=== PATIENT | male | born 1965 | race African-American/Black ===

== ENCOUNTER 2016-08-29 18:42 | Inpatient (IN) | payer MEDICARE, OTHER ==
[~2016-08-29] VITALS: Ht 188 cm; Wt 99.8 kg
[~2016-08-29 18:42] MED LIST: AMBIEN5 MG ORAL; ASPIR 8181 MG ORAL; ATIVAN0.5 MG ORAL; BACTRIM DS TAB1 EAC1 ORAL; BENADRYL25 MG ORAL; CATAPRES0.1 MG ORAL; CATAPRES0.2 MG ORAL; CHEMO; CLINDAMYCIN HC300 MG ORAL; CYCLOBENZAPRINE10 MG ORAL; DILAUDID2 MG ORAL; DILAUDID4 MG ORAL; FIORICET 50-301 EACH PO; FLOMAX0.4 MG ORAL; HYDROCHLOROTH12.5 M2 ORAL; HYDROCHLOROTHIA50 MG ORAL; HYDROCODON-ACE1 EA13 ORAL; HYDROCODON-ACE1 EA15 ORAL; HYDROCODON-ACE1 EA16 ORAL; IBUPROFEN600 MG ORAL; KEFLEX500 MG ORAL; LEXAPRO10 MG ORAL; LISINOPRIL10 MG ORAL; LISINOPRIL40 MG ORAL; LORAZEPAM0.5 MG ORAL; METOPROLOL SUCC25 MG ORAL; MIRTAZAPINE15 M1 ORAL; NORCO 10/3251 EA ORAL; NORCO 5-325 TA1 EACH ORAL; NORCO 5-325 TA1 EACH PO; NORVASC2.5 MG ORAL; NORVASC5 MG ORAL; NORVIR100 MG ORAL; PAXIL10 MG ORAL; PERCOCET 5-3251 EACH ORAL; PROSCAR5 MG ORAL; RANITIDINE HCL150 MG ORAL; REGLAN10 MG ORAL; TYLENOL325 MG ORAL; VALIUM5 MG ORAL; ZANTAC150 MG ORAL; ZESTRIL40 MG ORAL
[2016-08-29 19:05] VITALS: BP 161/106
[2016-08-29 19:10] VITALS: BP 152/105
[2016-08-29 19:20] VITALS: BP 156/103
[2016-08-29 19:43] LABS: BASOPHILS % (AUTO) 1.4 % (0.0-2.0); EOSINOPHILS % (AUTO) 2.7 % (0.0-3.0); LYMPHOCYTES % (AUTO) 30.5 % (20.0-45.0); MEAN CORPUSCULAR HEMOGLOBIN 32.7 PG (27.0-31.0); MEAN CORPUSCULAR HGB CONC 35.5 G/DL (32.0-36.0); MEAN CORPUSCULAR VOLUME 92 FL (80-99); MEAN PLATELET VOLUME 7.5 FL (6.5-10.1); NEUTROPHILS % (AUTO) 58.4 % (45.0-75.0); PLATELET COUNT 155 K/UL (150-450); RED CELL DISTRIBUTION WIDTH 12.5 % (11.6-14.8); WHITE BLOOD COUNT 6.2 K/UL (4.8-10.8)
[2016-08-29] MEDS: Nitroglycerin Subl 0.4mg tab (Bottle Of 25) SL PRN ×3 (19:44→20:24)
[2016-08-29 19:58] LABS: ALANINE AMINOTRANSFERASE 25 U/L (3-41); ALBUMIN/GLOBULIN RATIO 2.2 (1.0-2.7); ANION GAP 15 (5-15); ASPARTATE AMINO TRANSFERASE 21 U/L (5-40); CALCIUM 9.2 mg/dL (8.6-10.2); CARBON DIOXIDE 26 mEQ/L (20-30); CHLORIDE 100 mEQ/L (98-107); CREATININE 1.1 mg/dL (0.7-1.2); GLOMERULAR FILTRATION RATE > 60 mL/min (>60); HEMOLYSIS 15; POTASSIUM 4.1 mEQ/L (3.4-4.9); SODIUM 141 mEQ/L (135-145); TOTAL PROTEIN 5.8 g/dL (6.6-8.7); TROPONIN I < 0.30 ng/mL (<=0.30)
[2016-08-29 20:08] LABS: CKMB 3.9 ng/mL (< 6.7)
[2016-08-29] MEDS ORDERED: Morphine Sulfate 4mg/ml Inj IVP ONE (20:15)
[2016-08-29] MEDS ORDERED: Metoclopramide 10mg/2ml Inj IVP ONE (20:15)
[2016-08-29] MEDS ORDERED: DiphenhydrAMINE 50mg/ml Inj ONE (20:29)
[2016-08-29] MEDS ORDERED: DiphenhydrAMINE 50mg/ml Inj IVP ONE (20:45)
[2016-08-29 21:00] VITALS: BP 146/103
[2016-08-29] MEDS ORDERED: HYDROmorphone 1 MG, DiphenhydrAMINE 25 MG in NS 55 ML IVPB ONE (21:30)
--- NOTE | 2016-08-29 21:31 | Emergency Room Report ---
History of Present Illness General Chief Complaint: Headache Source: Patient Present Illness HPI 51-year-old male presents to ED for evaluation. Patient states the last 2 days he had chest pain and headache. Chest pain as squeezing, left-sided, 8/10. Denies shortness of breath. Patient also complaining of headache. Notes history of migraines. BP is elevated. Headache as throbbing, 10 out of 10. Nonradiating. Denies photophobia, blurry vision. Denies nausea or vomiting. Denies neck stiffness. No other aggravating or relieving factors. Denies any other associated symptom Allergies: Coded Allergies: KETOROLAC (Verified Allergy, Severe, Anaphylaxis, 06/19/15) HYDROCODONE (Verified Allergy, Intermediate, Itching, 06/19/15) Patient History Past Medical History: HTN, CAD, other - MS Past Surgical History: none Pertinent Family History: none Social History: Denies: alcohol use, drug use, smoking Immunizations: UTD Reviewed Nursing Documentation: PMH: Agreed, PSxH: Agreed Nursing Documentation-PMH Hx Cardiac Problems: Yes - CAD, multiple herniated discs, multiple sclerosis Hx Hypertension: Yes Hx Asthma: No Hx COPD: No Hx Diabetes: No Hx Cancer: No Hx Gastrointestinal Problems: No Hx Dialysis: No Hx Neurological Problems: Yes - MS Hx Cerebrovascular Accident: Yes - TIA (2013) Hx Transient Ischemic Attacks: No Hx Dementia: No Hx Alzheimer's Disease: No Hx Parkinson's Disease: No Hx Meningitis: No Hx Encephalitis: No Hx Seizures: No Hx Epilepsy: No Hx Multiple Sclerosis: Yes Hx Cerebral Palsy: No Hx Amyotrophic Lat Sclerosis: No Hx Guillian-[place] Syndrome: No Hx Paralysis: No Hx Peripheral Neuropathy: No Hx Spinal Cord Injury: No Hx Head Trauma: No Hx Traumatic Brain Injury: No Hx Memory Loss: No Hx Concentration Difficulty: No Hx Speech Problem: No Hx Tremors: No Hx Vertigo: No Hx Dizziness: Yes - SLIGHT Hx Syncope: Yes Hx Headaches: Yes - SOMETIMES Hx Aphasia: No Hx Dysphasia: No Hx Numbness: Yes - RIGHT HAND Hx Weakness: Yes - ALL OF THE BODY Hx Fatigue: Yes - SLIGHT Hx Neurologic Surgery: No Hx Brain Shunt: No Review of Systems All Other Systems: negative except mentioned in HPI Physical Exam Vital Signs Date Time Temp Pulse Resp B/P Pulse Ox O2 Delivery O2 Flow Rate FiO2 08/29/16 18:55 98.8 85 16 167/111 100 Room Air Sp02 EP Interpretation: reviewed, normal General Appearance: no apparent distress, alert, GCS 15, non-toxic Head: normocephalic, atraumatic Eyes: bilateral eye PERRL, bilateral eye normal inspection ENT: hearing grossly normal, normal pharynx, no angioedema, normal voice Neck: full range of motion, supple/symm/no masses Respiratory: chest non-tender, lungs clear, normal breath sounds, speaking full sentences Cardiovascular #1: regular rate, rhythm, no edema Cardiovascular #2: 2+ carotid (R), 2+ carotid (L), 2+ radial (R), 2+ radial (L) , 2+ dorsalis pedis (R), 2+ dorsalis pedis (L) Gastrointestinal: normal bowel sounds, non tender, soft, non-distended, no guarding, no rebound Rectal: deferred Genitourinary: normal inspection, no CVA tenderness Musculoskeletal: back normal, gait/station normal, normal range of motion, non- tender Neurologic: alert, oriented x3, responsive, motor strength/tone normal, sensory intact, speech normal Psychiatric: judgement/insight normal, memory normal, mood/affect normal, no suicidal/homicidal ideation Reflexes: 3+ bicep (R), 3+ bicep (L), 3+ tricep (R), 3+ tricep (L), 3+ knee (R) , 3+ knee (L) Skin: normal color, no rash, warm/dry, well hydrated Lymphatic: no adenopathy Medical Decision Making Diagnostic Impression: Primary Impression: ACS (acute coronary syndrome) Additional Impressions: Opiate dependence Qualified Codes: F11.29 - Opioid dependence with unspecified opioid-induced disorder Intractable headache Qualified Codes: R51 - Headache ER Course Hospital Course 51-year-old male presents ED complaining of left-sided chest pain, headache. BP is high Differential diagnoses include: VT/unstable angina, contusion, muscle strain, PTX, rib fracture, CVA. Clinical course Patient placed on stretcher. on residential monitor. After initial history and physical I ordered labs, EKG, chest x-ray, NTG, CT Head labs reviewed- no leukocytosis, hemoglobin/hematocrit stable, electrolytes okay , troponins negative,U. tox positive for opiates EKG - NSR, no acute changes Chest x-ray- no acute process CT head ok BP improved Patient required multiple rounds of pain medication for his headache. Patient does have documented history of opiate dependence given asa. Case discussed with Dr. Alvarez and he agreed to accept the patient to his service for further care and support I. I feel this is a highly complex case requiring extensive working including EKG/Rhythm strip, Xray/CT/US, Blood/urine lab work, repeat exams while in ED, and administration of strong opiates/narcotics for pain control, admission to hospital or close patient follow up. Diagnosis - ACS, opiate dependence, intractable headache admitted to telemetry in serious condition Labs Test 08/29/16 19:35 White Blood Count 6.2 K/UL (4.8-10.8) Red Blood Count 4.80 M/UL (4.70-6.10) Hemoglobin 15.7 G/DL (14.2-18.0) Hematocrit 44.3 % (42.0-52.0) Mean Corpuscular Volume 92 FL (80-99) Mean Corpuscular Hemoglobin 32.7 PG (27.0-31.0) Mean Corpuscular Hemoglobin Concent 35.5 G/DL (32.0-36.0) Red Cell Distribution Width 12.5 % (11.6-14.8) Platelet Count 155 K/UL (150-450) Mean Platelet Volume 7.5 FL (6.5-10.1) Neutrophils (%) (Auto) 58.4 % (45.0-75.0) Lymphocytes (%) (Auto) 30.5 % (20.0-45.0) Monocytes (%) (Auto) 7.0 % (1.0-10.0) Eosinophils (%) (Auto) 2.7 % (0.0-3.0) Basophils (%) (Auto) 1.4 % (0.0-2.0) Sodium Level 141 mEQ/L (135-145) Potassium Level 4.1 mEQ/L (3.4-4.9) Chloride Level 100 mEQ/L (98-107) Carbon Dioxide Level 26 mEQ/L (20-30) Anion Gap 15 (5-15) Blood Urea Nitrogen 18 mg/dL (7-23) Creatinine 1.1 mg/dL (0.7-1.2) Estimat Glomerular Filtration Rate > 60 mL/min (>60) Glucose Level 134 mg/dL (74-106) Calcium Level 9.2 mg/dL (8.6-10.2) Total Bilirubin < 0.2 mg/dL (0.0-1.2) Aspartate Amino Transf (AST/SGOT) 21 U/L (5-40) Alanine Aminotransferase (ALT/SGPT) 25 U/L (3-41) Alkaline Phosphatase 104 U/L (40-129) Total Creatine Kinase 144 U/L (38-174) Creatine Kinase MB 3.9 ng/mL (< 6.7) Creatine Kinase MB Relative Index 2.7 Troponin I < 0.30 ng/mL (<=0.30) Total Protein 5.8 g/dL (6.6-8.7) Albumin 4.0 g/dL (3.5-5.2) Globulin 1.8 g/dL Albumin/Globulin Ratio 2.2 (1.0-2.7) Urine Opiates Screen Positive (NEGATIVE) Urine Barbiturates Screen Negative (NEGATIVE) Phencyclidine (PCP) Screen Negative (NEGATIVE) Urine Amphetamines Screen Negative (NEGATIVE) Urine Benzodiazepines Screen Negative (NEGATIVE) Urine Cocaine Screen Negative (NEGATIVE) Urine Marijuana (THC) Screen Negative (NEGATIVE) EKG Diagnostic Results Rate: normal Rhythm: NSR ST Segments: no acute changes ASA given to the pt in ED: Yes Rhythm Strip Diag. Results EP Interpretation: yes Rhythm: NSR, no PVC's, no ectopy Chest X-Ray Diagnostic Results EP Interpretation: Yes Findings: no consolidation, no effusion, no pneumothorax, no acute cardiopulmonary disease Number of Views: 1 CT/MRI/US Diagnostic Results CT/MRI/US Diagnostic Results : Imaging Test Ordered: CT Head Impression no acute process Last Vital Signs Date Time Temp Pulse Resp B/P Pulse Ox O2 Delivery O2 Flow Rate FiO2 08/29/16 20:24 156/103 08/29/16 19:05 98.6 87 17 99 Room Air Status: improved Disposition: ADMITTED INPATIENT Condition: Serious Referrals: QUINTEN ALVAREZ (PCP) RUFUS CHASE M.D. Aug 29, 2016 21:31
[2016-08-29] MEDS ORDERED: HYDROmorphone 1mg/ml Carpuject ONE (21:33)
[2016-08-29 22:55] VITALS: BP 147/99
[2016-08-29] MEDS: LORazepam 1mg tab ORAL PRN (23:36)
[2016-08-29] MEDS: HYDROmorphone 1mg/ml Carpuject IVP PRN (23:39)
[2016-08-30] VITALS (7 sets, daily range): BP systolic 152–200; BP diastolic 97–144
[2016-08-30] MEDS: HYDROmorphone 1mg/ml Carpuject IVP PRN ×6 (03:49→23:58)
[2016-08-30] MEDS: LORazepam 1mg tab ORAL PRN (06:42)
[2016-08-30 07:34] LABS: BASOPHILS % (AUTO) 0.7 % (0.0-2.0); MEAN CORPUSCULAR HEMOGLOBIN 30.4 PG (27.0-31.0); MEAN CORPUSCULAR HGB CONC 32.5 G/DL (32.0-36.0); MEAN CORPUSCULAR VOLUME 94 FL (80-99); MEAN PLATELET VOLUME 8.2 FL (6.5-10.1); MONOCYTES % (AUTO) 8.9 % (1.0-10.0); NEUTROPHILS % (AUTO) 55.4 % (45.0-75.0); PLATELET COUNT 163 K/UL (150-450); RED BLOOD COUNT 4.83 M/UL (4.70-6.10); RED CELL DISTRIBUTION WIDTH 13.1 % (11.6-14.8); WHITE BLOOD COUNT 5.9 K/UL (4.8-10.8)
[2016-08-30 07:45] LABS: ANION GAP 16 (5-15); CALCIUM 8.8 mg/dL (8.6-10.2); CARBON DIOXIDE 25 mEQ/L (20-30); CHLORIDE 100 mEQ/L (98-107); CHOLESTEROL 202 mg/dL (< 200); CHOLESTEROL/HDL RATIO 4.2 (3.3-4.4); GLOMERULAR FILTRATION RATE > 60 mL/min (>60); HEMOLYSIS 5; LDL CHOLESTEROL (CALC.) 106 mg/dL (60-99); POTASSIUM 3.7 mEQ/L (3.4-4.9); SODIUM 141 mEQ/L (135-145)
--- NOTE | 2016-08-30 09:04 | Diagnostic Imaging Report ---
Indication: Headache Technique: Contiguous 5 mm thick transaxial imaging of the head obtained in a Siemens Sensation [address] scanner. Soft tissue and bone windows generated. Total Dose length Product (DLP): [address] Dose Index Volume (CTDIvol): 70.38 mGy Comparison: 06/19/15 Findings: Mild, nonspecific, white matter hypoattenuation is noted throughout the brain consistent with chronic small vessel disease. There is no midline shift, edema, acute hemorrhage, mass effect, or abnormal extra-axial fluid collections. Bones are unremarkable. There is swelling over the left posterior scalp, presumably contusion. Impression: No acute intracranial bleed, mass effect or edema. Nonspecific white matter hypoattenuation probably due to chronic small vessel disease. Scalp swelling left posterior region presumably contusion injury The CT scanner at [facility] is accredited by the [employer] and the scans are performed using protocols designed to limit radiation exposure to as low as reasonably achievable to attain images of sufficient resolution adequate for diagnostic evaluation.
--- NOTE | 2016-08-30 10:29 | Diagnostic Imaging Report ---
Indication: Chest Pain Comparison: 08/24/14 A single view chest radiograph was obtained. Findings: Cardiomediastinal appearance is within normal limits for age. Pulmonary vascularity is appropriate. The diaphragmatic contour is smooth and costophrenic angles are sharp. No pleural effusions are identified. The bones are unremarkable. Impression: No acute findings
[2016-08-30] MEDS: LORazepam Inj 2mg/ml 1ml IV PRN ×3 (10:55→23:53)
[2016-08-30] MEDS ORDERED: NS 55ml IV ONE (11:19)
[2016-08-30] MEDS: Metoprolol 50mg tab ORAL SCH ×2 (12:02→20:45)
[2016-08-30] MEDS: Losartan 50mg tab ORAL SCH ×2 (12:02→20:44)
[2016-08-30] MEDS: DiphenhydrAMINE 50mg/ml Inj IVP PRN ×2 (13:00→17:21)
--- NOTE | 2016-08-30 13:11 | Cardiology Report ---
APPROVED REPORT EKG Measurement Heart [id number] Normal sinus rhythm Anteroseptal infarct, age undetermined Abnormal ECG
[2016-08-30] MEDS: Zolpidem 5mg tab ORAL PRN (20:55)
--- NOTE | 2016-08-30 21:00 | History and Physical ---
History of Present Illness General Reason for Hospitalization: Headache, chest pain Present Illness HPI The patient is a 51-year-old male with a prior history of lumbar spondylosis, Hypertension, Gout, multiple sclerosis, migraine, anxiety and depression and chronic pain, patient c/o a 2 day history of chest pain and headache. Chest pain as squeezing, left-sided, 8/10. Denies shortness of breath. BP is elevated. Headache as throbbing, 10 out of 10. Nonradiating. Denies photophobia, blurry vision. Denies nausea or vomiting. Denies neck stiffness. No other aggravating or relieving factors. Denies any other associated symptom Allergies: Allergies: Coded Allergies: KETOROLAC (Verified Allergy, Severe, Anaphylaxis, 06/19/15) HYDROCODONE (Verified Allergy, Intermediate, Itching, 06/19/15) Medication History Scheduled Amlodipine Besylate (Norvasc), 5 MG ORAL DAILY, (Reported) Aspirin* (Aspir 81*), 81 MG ORAL DAILY, (Reported) Clonidine Hcl* (Catapres*), 0.2 MG ORAL Q6HR, (Reported) Cyclobenzaprine Hcl* (Flexeril*), 10 MG ORAL THREE TIMES A DAY, (Reported) Escitalopram Oxalate* (Lexapro*), 10 MG ORAL DAILY, (Reported) Hydrochlorothiazide* (Hydrochlorothiazide*), 50 MG ORAL DAILY Lisinopril* (Zestril*), 40 MG ORAL DAILY Metoprolol Succinate* (Metoprolol Succinate*), 50 MG ORAL Q12HR, (Reported) Mirtazapine (Mirtazapine), 7.5 MG ORAL BEDTIME, (Reported) Ranitidine Hcl* (Zantac*), 150 MG ORAL TWICE A DAY, (Reported) Ranitidine Hcl* (Zantac*), 150 MG ORAL TWICE A DAY, (Reported) Scheduled PRN Acetaminophen (Tylenol), 650 MG ORAL Q6H PRN for Mild Pain/Temp > 100.5, ( Reported) Diphenhydramine Hcl* (Benadryl*), 25 MG ORAL Q6H PRN for Itching, (Reported) Hydromorphone HCl (Dilaudid), 2 MG ORAL Q4H PRN for For Pain, (Reported) Hydromorphone HCl (Dilaudid), 4 MG ORAL Q4H PRN for Pain Scale (6-10), (Reported ) Lorazepam* (Lorazepam*), 0.5 MG ORAL Q6HR PRN for For Anxiety, (Reported) Zolpidem Tartrate* (Ambien*), 5 MG ORAL BEDTIME PRN for Insomnia, (Reported) Miscellaneous Medications [Chemo], (Reported) Patient History History Provided By: Patient Healthcare decision maker pt alert and oriented x4 Resuscitation status Full Code Advanced Directive on File No Past Medical/Surgical History Past Medical/Surgical History: (1) Opiate dependence (2) Diabetes (3) Acute on chronic renal insufficiency (4) Hypertension (5) Neuropathic pain (6) Chronic pain (7) Degenerative disc disease, cervical (8) Anxiety disorder (9) Multiple sclerosis Social History Social History: (1) Denies alcohol consumption (2) Patient denies drug use (3) Non-smoker Review of Systems All Other Systems: negative except mentioned in HPI Physical Exam General Appearance: no apparent distress, alert Lines, tubes and drains: peripheral HEENT: normocephalic, atraumatic Neck: non-tender, normal alignment, supple, normal inspection Respiratory/Chest: normal breath sounds, no respiratory distress Cardiovascular/Chest: normal rate, regular rhythm Abdomen: non tender, soft, no organomegaly, no mass Extremities: non-tender, normal inspection Skin Exam: normal pigmentation, warm/dry Neurologic: alert, oriented x 3, responsive, normal mood/affect Last 24 Hour Vital Signs Date Time Temp Pulse Resp B/P Pulse Ox O2 Delivery O2 Flow Rate FiO2 08/30/16 17:26 84 164/121 08/30/16 16:00 90 08/30/16 15:31 97.3 85 20 153/97 96 Nasal Cannula 2.0 08/30/16 14:08 86 167/115 08/30/16 13:06 88 152/121 08/30/16 12:02 95 157/115 08/30/16 12:02 157/115 08/30/16 12:00 91 08/30/16 11:24 96.5 89 20 156/117 98 Nasal Cannula 2.0 08/30/16 10:55 89 156/117 08/30/16 08:09 96.8 95 20 190/120 95 Room Air 08/30/16 08:00 91 08/30/16 07:33 87 08/30/16 04:00 98.0 100 20 200/144 96 Room Air 08/29/16 22:55 80 16 147/99 100 Room Air 08/29/16 22:55 98.6 80 16 147/99 100 Room Air 08/29/16 22:08 98.6 08/29/16 21:00 98.4 79 17 146/103 99 Room Air Intake and Output 08/29/16 08/30/16 19:00 07:00 Intake Total 900 ml Output Total 1700 ml Balance -800 ml Intake Oral 350 ml IV Total 550 ml Output Urine Total 1700 ml # Voids 5 Laboratory Tests Test 08/30/16 05:45 White Blood Count 5.9 K/UL (4.8-10.8) Red Blood Count 4.83 M/UL (4.70-6.10) Hemoglobin 14.7 G/DL (14.2-18.0) Hematocrit 45.2 % (42.0-52.0) Mean Corpuscular Volume 94 FL (80-99) Mean Corpuscular Hemoglobin 30.4 PG (27.0-31.0) Mean Corpuscular Hemoglobin Concent 32.5 G/DL (32.0-36.0) Red Cell Distribution Width 13.1 % (11.6-14.8) Platelet Count 163 K/UL (150-450) Mean Platelet Volume 8.2 FL (6.5-10.1) Neutrophils (%) (Auto) 55.4 % (45.0-75.0) Lymphocytes (%) (Auto) 32.0 % (20.0-45.0) Monocytes (%) (Auto) 8.9 % (1.0-10.0) Eosinophils (%) (Auto) 3.0 % (0.0-3.0) Basophils (%) (Auto) 0.7 % (0.0-2.0) Sodium Level 141 mEQ/L (135-145) Potassium Level 3.7 mEQ/L (3.4-4.9) Chloride Level 100 mEQ/L (98-107) Carbon Dioxide Level 25 mEQ/L (20-30) Anion Gap 16 (5-15) H Blood Urea Nitrogen 16 mg/dL (7-23) Creatinine 1.0 mg/dL (0.7-1.2) Estimat Glomerular Filtration Rate > 60 mL/min (>60) Glucose Level 120 mg/dL (74-106) H Calcium Level 8.8 mg/dL (8.6-10.2) Triglycerides Level 242 mg/dL (< 150) H Cholesterol Level 202 mg/dL (< 200) H LDL Cholesterol 106 mg/dL (60-99) H HDL Cholesterol 48 mg/dL (> 60) Cholesterol/HDL Ratio 4.2 (3.3-4.4) Height (Feet): 6 Height (Inches): 2.00 Weight (Pounds): 220 Medications Current Medications Medications (Trade) Dose Ordered Sig/Jessica Route PRN Reason Start Time Stop Time Status Last Admin Dose Admin Acetaminophen (Tylenol) 650 mg Q4H PRN ORAL Mild Pain (Pain Scale 1-3) 08/29/16 22:30 09/28/16 22:29 Acetaminophen (Tylenol) 650 mg Q4H PRN ORAL fever 08/29/16 22:30 09/28/16 22:29 Amlodipine Besylate (Norvasc) 5 mg BID ORAL 08/30/16 10:00 09/29/16 09:59 08/30/16 17:26 Clonidine HCl (Catapres) 0.1 mg Q6H PRN ORAL For High Blood Pressure 08/30/16 20:30 09/29/16 20:29 UNV Dextrose (Dextrose 50%) STAT PRN IV Hypoglycemia 08/29/16 22:30 09/28/16 22:29 Diphenhydramine HCl (Benadryl) 25 mg Q4HR PRN IVP Itching 08/30/16 11:15 09/29/16 11:14 08/30/16 17:21 Heparin Sodium (Porcine) (Heparin 5000 units/ml) 5,000 units EVERY 12 HOURS SUBQ 08/30/16 21:00 09/29/16 20:59 UNV Hydromorphone HCl (Dilaudid) 1 mg Q4HR PRN IVP Severe Pain (Pain Scale 7-10) 08/29/16 22:30 09/05/16 22:29 08/30/16 17:22 Lorazepam (Ativan 2mg/ml 1ml) 1 mg Q6HR PRN IV For agitation 08/30/16 10:00 09/06/16 09:59 08/30/16 18:52 Lorazepam (Ativan) 1 mg Q4H PRN ORAL For Anxiety 08/29/16 22:30 09/05/16 22:29 08/30/16 06:42 Losartan Potassium (Cozaar) 50 mg EVERY 12 HOURS ORAL 08/30/16 11:00 09/29/16 10:59 08/30/16 12:02 Metoprolol Tartrate (Lopressor) 50 mg Q12HR ORAL 08/30/16 11:00 09/29/16 10:59 08/30/16 12:02 Nitroglycerin (Ntg) 0.4 mg Q5M PRN SL Prn Chest Pain 08/29/16 19:15 08/29/16 19:53 Ondansetron HCl (Zofran) 4 mg Q6H PRN IVP Nausea & Vomiting 08/29/16 22:30 09/28/16 22:29 Zolpidem Tartrate (Ambien) 5 mg DAILYPRN PRN ORAL Insomnia 08/29/16 22:30 09/28/16 22:29 Assessment/Plan Problem List: (1) Accelerated hypertension (2) Opiate dependence ICD Codes: F11.20 - Opioid dependence, uncomplicated SNOMED: 05217399 (3) Multiple sclerosis (4) Neuropathic pain ICD Codes: M79.2 - Neuralgia and neuritis, unspecified SNOMED: 088345633 (5) Headache (6) Chest pain ICD Codes: R07.9 - Chest pain SNOMED: 37986540 (7) Degenerative disc disease, cervical ICD Codes: M50.30 - Degenerative disc disease, cervical SNOMED: 52869666 Assessment/Plan Pain management Cardiac diet Echo Cardiology consult Monitor varuntes, correct as needed DVT prophylaxis AM labs QUINTEN ALVAREZ Aug 30, 2016 21:00
[2016-08-30] MEDS: Heparin 5000 units/ml inj SUBQ SCH (22:36)
[2016-08-30 23:05] LABS: TROPONIN I < 0.30 ng/mL (<=0.30)
--- NOTE | 2016-08-30 23:20 | Nephrology Progress Note ---
Assessment/Plan Problem List: (1) Accelerated hypertension (2) Opiate dependence (3) Multiple sclerosis (4) Neuropathic pain (5) Headache (6) Chest pain (7) Degenerative disc disease, cervical Objective Objective Last 24 Hour Vital Signs Date Time Temp Pulse Resp B/P Pulse Ox O2 Delivery O2 Flow Rate FiO2 08/30/16 22:09 86 08/30/16 20:45 84 164/121 08/30/16 20:44 164/121 08/30/16 20:00 97.3 89 20 183/126 96 Nasal Cannula 2.0 08/30/16 17:26 84 164/121 08/30/16 16:00 90 08/30/16 15:31 97.3 85 20 153/97 96 Nasal Cannula 2.0 08/30/16 14:08 86 167/115 08/30/16 13:06 88 152/121 08/30/16 12:02 95 157/115 08/30/16 12:02 157/115 08/30/16 12:00 91 08/30/16 11:24 96.5 89 20 156/117 98 Nasal Cannula 2.0 08/30/16 10:55 89 156/117 08/30/16 08:09 96.8 95 20 190/120 95 Room Air 08/30/16 08:00 91 08/30/16 07:33 87 08/30/16 04:00 98.0 100 20 200/144 96 Room Air Intake and Output 08/29/16 08/30/16 19:00 07:00 Intake Total 900 ml Output Total 1700 ml Balance -800 ml Intake Oral 350 ml IV Total 550 ml Output Urine Total 1700 ml # Voids 5 Laboratory Tests 08/30/16 05:45: White Blood Count 5.9, Red Blood Count 4.83, Hemoglobin 14.7, Hematocrit 45.2, Mean Corpuscular Volume 94, Mean Corpuscular Hemoglobin 30.4, Mean Corpuscular Hemoglobin Concent 32.5, Red Cell Distribution Width 13.1, Platelet Count 163, Mean Platelet Volume 8.2, Neutrophils (%) (Auto) 55.4, Lymphocytes (%) (Auto) 32.0, Monocytes (%) (Auto) 8.9, Eosinophils (%) (Auto) 3.0, Basophils (%) (Auto ) 0.7, Sodium Level 141, Potassium Level 3.7, Chloride Level 100, Carbon Dioxide Level 25, Anion Gap 16H, Blood Urea Nitrogen 16, Creatinine 1.0, Estimat Glomerular Filtration Rate > 60, Glucose Level 120H, Calcium Level 8.8, Triglycerides Level 242H, Cholesterol Level 202H, LDL Cholesterol 106H, HDL Cholesterol 48, Cholesterol/HDL Ratio 4.2 08/30/16 22:15: Troponin I < 0.30 Height (Feet): 6 Height (Inches): 2.00 Weight (Pounds): 220 QUINTEN ALVAREZ Aug 30, 2016 23:20
[2016-08-31] VITALS (7 sets, daily range): BP systolic 149–170; BP diastolic 109–127
[2016-08-31] MEDS: DiphenhydrAMINE 50mg/ml Inj IVP PRN ×5 (03:56→21:14)
[2016-08-31] MEDS: HYDROmorphone 1mg/ml Carpuject IVP PRN ×3 (03:58→12:41)
[2016-08-31 07:45] LABS: BASOPHILS % (AUTO) 1.3 % (0.0-2.0); EOSINOPHILS % (AUTO) 2.5 % (0.0-3.0); LYMPHOCYTES % (AUTO) 31.7 % (20.0-45.0); MEAN CORPUSCULAR HGB CONC 32.9 G/DL (32.0-36.0); MEAN CORPUSCULAR VOLUME 94 FL (80-99); MEAN PLATELET VOLUME 7.5 FL (6.5-10.1); MONOCYTES % (AUTO) 8.1 % (1.0-10.0); NEUTROPHILS % (AUTO) 56.4 % (45.0-75.0); PLATELET COUNT 180 K/UL (150-450); RED CELL DISTRIBUTION WIDTH 13.3 % (11.6-14.8); WHITE BLOOD COUNT 5.8 K/UL (4.8-10.8)
[2016-08-31 08:00] LABS: ANION GAP 13 (5-15); CALCIUM 9.3 mg/dL (8.6-10.2); CARBON DIOXIDE 27 mEQ/L (20-30); CHLORIDE 99 mEQ/L (98-107); GLOMERULAR FILTRATION RATE > 60 mL/min (>60); HEMOLYSIS 6; POTASSIUM 4.4 mEQ/L (3.4-4.9); SODIUM 139 mEQ/L (135-145)
[2016-08-31] MEDS: Losartan 50mg tab ORAL SCH ×2 (08:30→21:26)
[2016-08-31] MEDS: Metoprolol 50mg tab ORAL SCH ×2 (08:31→21:11)
[2016-08-31] MEDS: Heparin 5000 units/ml inj SUBQ SCH ×2 (08:40→21:16)
[2016-08-31] MEDS: LORazepam 1mg tab ORAL PRN ×2 (10:39→21:12)
--- NOTE | 2016-08-31 18:53 | Cardiac Electrophysiology PN ---
Subjective Subjective [id number] Objective Last 24 Hour Vital Signs Date Time Temp Pulse Resp B/P Pulse Ox O2 Delivery O2 Flow Rate FiO2 08/31/16 17:42 93 159/109 08/31/16 17:30 93 156/109 Room Air 08/31/16 16:02 168/127 08/31/16 16:00 97.5 94 18 168/127 93 Room Air 08/31/16 16:00 102 08/31/16 12:00 84 08/31/16 12:00 97.7 86 20 154/111 96 Room Air 08/31/16 08:31 90 170/126 08/31/16 08:31 90 170/126 08/31/16 08:30 170/126 08/31/16 08:00 84 08/31/16 08:00 97.2 90 20 170/126 97 Room Air 08/31/16 04:37 81 08/31/16 04:00 97.7 80 18 167/119 99 Room Air 08/31/16 01:45 97 08/31/16 01:04 97.9 93 18 157/118 97 Room Air 08/30/16 22:09 86 08/30/16 20:45 84 164/121 08/30/16 20:44 164/121 08/30/16 20:00 97.3 89 20 183/126 96 Nasal Cannula 2.0 Intake and Output 08/30/16 08/31/16 19:00 07:00 Intake Total 1250 ml Output Total 1850 ml 1000 ml Balance -600 ml -1000 ml Intake Oral 1250 ml Output Urine Total 1850 ml 1000 ml # Voids 4 # Bowel Movements 1 Laboratory Tests Test 08/30/16 22:15 08/31/16 06:50 Troponin I < 0.30 ng/mL (<=0.30) White Blood Count 5.8 K/UL (4.8-10.8) Red Blood Count 5.30 M/UL (4.70-6.10) Hemoglobin 16.4 G/DL (14.2-18.0) Hematocrit 49.9 % (42.0-52.0) Mean Corpuscular Volume 94 FL (80-99) Mean Corpuscular Hemoglobin 31.0 PG (27.0-31.0) Mean Corpuscular Hemoglobin Concent 32.9 G/DL (32.0-36.0) Red Cell Distribution Width 13.3 % (11.6-14.8) Platelet Count 180 K/UL (150-450) Mean Platelet Volume 7.5 FL (6.5-10.1) Neutrophils (%) (Auto) 56.4 % (45.0-75.0) Lymphocytes (%) (Auto) 31.7 % (20.0-45.0) Monocytes (%) (Auto) 8.1 % (1.0-10.0) Eosinophils (%) (Auto) 2.5 % (0.0-3.0) Basophils (%) (Auto) 1.3 % (0.0-2.0) Sodium Level 139 mEQ/L (135-145) Potassium Level 4.4 mEQ/L (3.4-4.9) Chloride Level 99 mEQ/L (98-107) Carbon Dioxide Level 27 mEQ/L (20-30) Anion Gap 13 (5-15) Blood Urea Nitrogen 14 mg/dL (7-23) Creatinine 1.0 mg/dL (0.7-1.2) Estimat Glomerular Filtration Rate > 60 mL/min (>60) Glucose Level 108 mg/dL (74-106) H Calcium Level 9.3 mg/dL (8.6-10.2) ELIANA SWANN Aug 31, 2016 18:53
[2016-08-31] MEDS: HydrALAZINE 25mg tab ORAL SCH (21:12)
[2016-08-31 23:21] LABS: TROPONIN I < 0.30 ng/mL (<=0.30)
--- NOTE | 2016-09-01 00:58 | Consultation ---
DATE OF CONSULTATION: 08/31/2016 CARDIOLOGY CONSULTATION REFERRING PHYSICIAN: Ruperto Ghosh M.D. REASON FOR CONSULTATION: Chest pain and hypertension. HISTORY OF PRESENT ILLNESS: The patient is a 51-year-old -[place] gentleman with history of hypertension and multiple sclerosis and mild pain with lumbar spondylosis, anxiety and depression, who presents to the ED with two days of chest pain and headache. The pain was squeezing. It was just an 8/10. He never had shortness of breath. He also has had 10/10 throbbing headache, but did not have any blurring of the vision. The patient was admitted and a Cardiology consultation was obtained for further evaluation. On my evaluation, the patient had symptoms of chest pain and also has headache. PAST MEDICAL HISTORY: As mentioned above. ALLERGIES: He is allergic to ketorolac and hydrocodone. MEDICATIONS: Include Norvasc, aspirin, clonidine, lisinopril, metoprolol, and ranitidine. FAMILY HISTORY: Noncontributory. SOCIAL HISTORY: He lives at home. Does not smoke or drink alcohol. REVIEW OF SYSTEMS: Review of systems was performed and was negative other than what was mentioned in the history of present illness. PHYSICAL EXAMINATION: VITAL SIGNS: Blood pressure was 170/126 in the ER currently 115/100, pulse 92, respirations 18, and temperature 97.5 degrees. HEAD AND NECK: Showed no JVD. LUNGS: Clear. CARDIOVASCULAR: Shows regular S1 and S2 with no gallop or murmur. ABDOMEN: Soft. EXTREMITIES: No pitting edema. LABORATORY DATA: Show white count of 5.2, hemoglobin 16.4, hematocrit of 50, and platelet count of 180,000. Sodium 139, potassium 4.4, BUN of 14, creatinine 1, and glucose of 108. The triglycerides are 242. HDL is 106. His urine toxicology is positive for opiates. ASSESSMENT AND PLAN: 1. Accelerated hypertension. The patient is on metoprolol 50 mg twice a day and Norvasc 5 mg twice a day. He is also on losartan 50 mg twice a day. I will add hydralazine 25 mg twice a day to his medical regimen. The patient is also on an as needed clonidine. 2. Chest pain atypical with ejection fraction of 60%. His troponins are negative. We will schedule the patient for nuclear stress test for further evaluation. 3. Severe headache and the patient with history of migraine. 4. Opiate dependence. 5. Multiple sclerosis. Thank you very much, Dr. Ghosh, for allowing me to participate in the care of this patient. Please do not hesitate to contact for any questions regarding my evaluation. Joni Ferguson M.D. DR: ISIDRO JOB#: [id number] CC:
[2016-09-01] MEDS: DiphenhydrAMINE 50mg/ml Inj IVP PRN ×6 (01:45→21:42)
[2016-09-01 04:17] VITALS: BP 145/109
[2016-09-01] MEDS: LORazepam 1mg tab ORAL PRN ×3 (05:32→21:34)
[2016-09-01] MEDS: HydrALAZINE 25mg tab ORAL SCH ×3 (05:32→21:37)
--- NOTE | 2016-09-01 07:55 | Consultation ---
Consult Note Consult Note DATE OF CONSULTATION: 09/01/2016 PULMONARYCONSULTATION REFERRING PHYSICIAN: Ruperto Ghosh M.D. REASON FOR CONSULTATION: Chest pain HISTORY OF PRESENT ILLNESS: The patient is a 51-year-old -[place] gentleman with history of hypertension and multiple sclerosis and mild pain with lumbar spondylosis, anxiety and depression, who presents to the ED with two days of chest pain and headache. The pain was squeezing. It was described as 8/10. He never had shortness of breath. He also has had 10/10 throbbing headache, but did not have any blurring of the vision. The patient was admitted and a respiratory consultation was obtained for further evaluation. On my evaluation, the patient had symptoms of chest pain and also has headache. PAST MEDICAL HISTORY: As mentioned above. He has a history of migraines. ALLERGIES: He is allergic to ketorolac and hydrocodone. MEDICATIONS: Include Norvasc, aspirin, clonidine, lisinopril, metoprolol, and ranitidine. FAMILY HISTORY: Noncontributory. SOCIAL HISTORY: He lives at home. Does not smoke or drink alcohol. REVIEW OF SYSTEMS: Review of systems was performed and was negative other than what was mentioned in the history of present illness. PHYSICAL EXAMINATION: VITAL SIGNS: Blood pressure was 170/126 in the ER currently 150/108, pulse 82, respirations 18, and temperature 97.5 degrees. HEAD AND NECK: Showed no JVD. LUNGS: Clear. CARDIOVASCULAR: Shows regular S1 and S2 with no gallop or murmur. ABDOMEN: Soft. EXTREMITIES: No pitting edema. LABORATORY DATA: Shows white count of 5.2, hemoglobin 16.4, hematocrit of 50, and platelet count of 180,000. Sodium 139, potassium 4.4, BUN of 14, creatinine 1, and glucose of 108. The triglycerides are 242. HDL is 106. His urine toxicology is positive for opiates. ASSESSMENT AND PLAN: 1. Accelerated hypertension. 2. Chest pain atypical with ejection fraction of 60%. Suspect cardiac etiology 3. Severe headache and the patient with history of migraine. 4. Opiate dependence. 5. Multiple sclerosis. Will follow Presently saturating normally on RA CXR negative Antolin Rhodes Omar Syed MD Sep 01, 2016 07:55
[2016-09-01 08:00] VITALS: BP 145/88
[2016-09-01] MEDS: Metoprolol 50mg tab ORAL SCH ×2 (09:26→21:38)
[2016-09-01] MEDS: Losartan 50mg tab ORAL SCH ×2 (09:26→21:38)
[2016-09-01] MEDS: Heparin 5000 units/ml inj SUBQ SCH ×2 (09:27→21:52)
[2016-09-01 12:00] VITALS: BP 160/109
--- NOTE | 2016-09-01 14:57 | Cardiology Report ---
APPROVED REPORT EXAM: Two-dimensional and M-mode echocardiogram with Doppler and color Doppler. INDICATION Chest Pain M-Mode DIMENSIONS IVSd0.9 (0.7-1.1cm)Left Atrium (MM)3.1 (1.6-4.0cm) LVDd4.9 (3.5-5.6cm)Aortic Root2.8 (2.0-3.7cm) PWd0.8 (0.7-1.1cm)Aortic Cusp Exc.1.9 (1.5-2.0cm) LVDs2.6 (2.5-4.0cm) PWs1.4 cm Normal left ventricular chamber size, systolic function and wall motion. Left ventricular ejection fraction estimated to be 60-65%. Mild left ventricular hypertrophy. No evidence of pericardial fat or effusion. All other cardiac chamber sizes are within normal limits. Focal aortic valve sclerosis with adequate cusp excursion Thickened mitral valve leaflets with normal excursion. Mitral annulus and aortic root calcification. Pulmonic valve is well visualized. Normal tricuspid valve structure. IVC is normal in size with physiologic collapse. A color flow and spectral Doppler study was performed and revealed: No aortic regurgitation. No mitral regurgitation. Left ventricular diastolic dysfunction grade 1. No tricuspid regurgitation.
[2016-09-01 16:41] VITALS: BP 155/101
[2016-09-01 20:00] VITALS: BP 157/90
[2016-09-01] MEDS: Zolpidem 5mg tab ORAL PRN (23:43)
[2016-09-02] VITALS (7 sets, daily range): BP systolic 130–153; BP diastolic 48–108
[2016-09-02] MEDS: DiphenhydrAMINE 50mg/ml Inj IVP PRN ×6 (02:19→22:41)
[2016-09-02] MEDS: LORazepam 1mg tab ORAL PRN (04:34)
[2016-09-02] MEDS: Losartan 50mg tab ORAL SCH ×2 (06:02→06:04)
[2016-09-02] MEDS: HydrALAZINE 25mg tab ORAL SCH ×2 (06:05→14:03)
--- NOTE | 2016-09-02 08:16 | General Progress Note ---
Assessment/Plan Assessment/Plan (1) Multiple Sclerosis (2) Neuropathic pain (3) Cervical DDD (4) Cervical spondylosis (5) Lumbar DDD (6) Lumbar spondylosis (7) Narcotic Dependency Patient will be changed to Dilaudid 2mg IVPB Q4H PRN severe pain. Pt was d/w Dr. Scott and he concurred. Thank you for the courtesy of this consultation. Subjective Date patient seen: September 02, 2016 Time patient seen: 07:30 - am Allergies: Coded Allergies: KETOROLAC (Verified Allergy, Severe, Anaphylaxis, 06/19/15) HYDROCODONE (Verified Allergy, Intermediate, Itching, 06/19/15) Subjective Constitutional: Reports: weakness, Denies: chills, diaphoresis, fever, malaise , no symptoms, other HEENT: Denies: blurred vision, double vision, ear discharge, ear pain, eye pain , mouth pain, mouth swelling, no symptoms, nose congestion, nose pain, other, tearing, throat pain, throat swelling Cardiovascular: Denies: chest pain, edema, irregular heart rate, lightheadedness, no symptoms, other, palpitations, syncope Respiratory: Denies: SOB at rest, SOB with excertion, cough, no symptoms, orthopnea, other, shortness of breath, sputum, stridor, wheezing Gastrointestinal/Abdominal: Denies: abdomen distended, abdominal pain, black stools, blood in stool, constipated, diarrhea, difficulty swallowing, nausea, no symptoms, other, poor appetite, poor fluid intake, rectal bleeding, tarry stools, vomiting Genitourinary: Denies: burning, discharge, flank pain, frequency, hematuria, incontinence, no symptoms, other, pain, urgency Neurologic/Psychiatric: Reports: weakness, Denies: anxiety, depressed, emotional problems, headache, no symptoms, numbness, other, paresthesia, pre- existing deficit, seizure, tingling, tremors Endocrine: Denies: excessive sweating, flushing, increased hunger, increased thirst, increased urine, intolerance to cold, intolerance to heat, no symptoms, other, unexplained weight gain, unexplained weight loss Hematologic/Lymphatic: Denies: anemia, easy bleeding, easy bruising, no symptoms, other Subjective Patient is a known patient from prior admissions, returned due to headache caused by hypertension, Now pain is stabilized and is on Dilaudid 2mg IVP Q4H PRN. Objective Last 24 Hour Vital Signs Date Time Temp Pulse Resp B/P Pulse Ox O2 Delivery O2 Flow Rate FiO2 09/02/16 06:05 130/48 09/02/16 06:04 130/48 09/02/16 06:02 130/48 09/02/16 04:48 97.8 18 130/48 95 Room Air 09/02/16 04:00 88 09/02/16 00:24 99 09/02/16 00:19 97.7 18 153/108 95 Room Air 09/01/16 21:38 91 159/106 09/01/16 21:38 159/90 09/01/16 21:37 157/90 09/01/16 20:00 96.6 18 157/90 95 Room Air 09/01/16 20:00 102 09/01/16 17:48 91 159/106 09/01/16 16:41 97.7 91 20 155/101 96 Room Air 09/01/16 16:00 88 09/01/16 14:25 152/115 09/01/16 12:00 98.1 95 21 160/109 97 Room Air 09/01/16 12:00 96 09/01/16 09:27 98 145/88 09/01/16 09:26 98 145/88 09/01/16 09:26 145/88 Intake and Output 09/01/16 09/02/16 19:00 07:00 # Voids 1 1 Height (Feet): 6 Height (Inches): 2.00 Weight (Pounds): 220 Objective General Appearance: no apparent distress, alert EENT: PERRL/EOMI, normal ENT inspection Neck: non-tender, normal alignment Cardiovascular: normal peripheral pulses, normal rate, regular rhythm Respiratory/Chest: lungs clear, normal breath sounds Abdomen: non tender, soft Extremities: non-tender Edema: no edema noted Arm (L), no edema noted Arm (R), no edema noted Leg (L), no edema noted Leg (R), no edema noted Pedal (L), no edema noted Pedal (R), no edema noted Generalized Neurologic: alert, oriented x 3 Skin: warm/dry MAYCOL WILEY NKassandra PAurora September 02, 2016 08:16
[2016-09-02] MEDS: Heparin 5000 units/ml inj SUBQ SCH ×2 (08:32→22:02)
[2016-09-02] MEDS: Metoprolol 50mg tab ORAL SCH ×2 (09:30→21:57)
[2016-09-02] MEDS: HYDROmorphone 2 MG in NS 55ml IVPB PRN ×4 (10:28→22:37)
--- NOTE | 2016-09-02 10:33 | Pulmonology Progress Note ---
Assessment/Plan Assessment/Plan ASSESSMENT AND PLAN: 1. Accelerated hypertension. 2. Chest pain atypical with ejection fraction of 60%. Suspect cardiac etiology 3. Severe headache and the patient with history of migraine. 4. Opiate dependence. 5. Multiple sclerosis. Will follow Presently saturating normally on RA CXR negative Subjective Interval Events: For stress test today; seen by pain management Constitutional: Reports: no symptoms HEENT: Repors: no symptoms Respiratory: Reports: no symptoms Cardiovascular: Reports: no symptoms Gastrointestinal/Abdominal: Reports: no symptoms Allergies: Coded Allergies: KETOROLAC (Verified Allergy, Severe, Anaphylaxis, 06/19/15) HYDROCODONE (Verified Allergy, Intermediate, Itching, 06/19/15) Objective Last 24 Hour Vital Signs Date Time Temp Pulse Resp B/P Pulse Ox O2 Delivery O2 Flow Rate FiO2 09/02/16 09:31 93 141/103 09/02/16 09:30 93 141/103 09/02/16 08:37 97.5 92 20 141/103 99 Nasal Cannula 2.0 09/02/16 06:05 130/48 09/02/16 06:04 130/48 09/02/16 06:02 130/48 09/02/16 04:48 97.8 18 130/48 95 Room Air 09/02/16 04:00 88 09/02/16 00:24 99 09/02/16 00:19 97.7 18 153/108 95 Room Air 09/01/16 21:38 91 159/106 09/01/16 21:38 159/90 09/01/16 21:37 157/90 09/01/16 20:00 96.6 18 157/90 95 Room Air 09/01/16 20:00 102 09/01/16 17:48 91 159/106 09/01/16 16:41 97.7 91 20 155/101 96 Room Air 09/01/16 16:00 88 09/01/16 14:25 152/115 09/01/16 12:00 98.1 95 21 160/109 97 Room Air 09/01/16 12:00 96 Intake and Output 09/01/16 09/02/16 19:00 07:00 # Voids 1 1 General Appearance: no acute distress HEENT: normocephalic Respiratory/Chest: chest wall non-tender, lungs clear Cardiovascular: normal peripheral pulses, normal rate Current Medications Medications (Trade) Dose Ordered Sig/Jessica Route PRN Reason Start Time Stop Time Status Last Admin Dose Admin Acetaminophen (Tylenol) 650 mg Q4H PRN ORAL Mild Pain (Pain Scale 1-3) 08/29/16 22:30 09/28/16 22:29 Acetaminophen (Tylenol) 650 mg Q4H PRN ORAL fever 08/29/16 22:30 09/28/16 22:29 Amlodipine Besylate (Norvasc) 5 mg BID ORAL 08/30/16 10:00 09/29/16 09:59 09/02/16 09:31 Clonidine HCl (Catapres) 0.1 mg Q6H PRN ORAL SBP>160 OR DBP>90 08/30/16 20:30 09/29/16 20:29 08/31/16 16:02 Dextrose (Dextrose 50%) STAT PRN IV Hypoglycemia 08/29/16 22:30 09/28/16 22:29 Diphenhydramine HCl (Benadryl) 25 mg Q4HR PRN IVP Itching 08/30/16 11:15 09/29/16 11:14 09/02/16 10:28 Heparin Sodium (Porcine) (Heparin 5000 units/ml) 5,000 units EVERY 12 HOURS SUBQ 08/30/16 22:00 09/29/16 21:59 09/01/16 21:52 Hydralazine HCl 25 mg 25 mg EVERY 8 HOURS ORAL 08/31/16 22:00 09/30/16 21:59 09/02/16 06:05 Hydromorphone HCl/ Sodium Chloride (Dilaudid/Sodium Chloride) 56 ml @ 224 mls/hr Q4H PRN IVPB Severe Pain (Pain Scale 7-10) 09/02/16 08:45 09/09/16 08:44 09/02/16 10:28 Lorazepam (Ativan 2mg/ml 1ml) 1 mg Q6HR PRN IV For agitation 08/30/16 10:00 09/06/16 09:59 08/30/16 23:53 Lorazepam (Ativan) 1 mg Q4H PRN ORAL For Anxiety 08/29/16 22:30 09/05/16 22:29 09/02/16 04:34 Losartan Potassium (Cozaar) 50 mg EVERY 12 HOURS ORAL 08/30/16 11:00 09/29/16 10:59 09/02/16 06:04 Metoprolol Tartrate (Lopressor) 50 mg Q12HR ORAL 08/30/16 11:00 09/29/16 10:59 09/02/16 09:30 Nitroglycerin (Ntg) 0.4 mg Q5M PRN SL Prn Chest Pain 08/29/16 19:15 08/29/16 19:53 Ondansetron HCl (Zofran) 4 mg Q6H PRN IVP Nausea & Vomiting 08/29/16 22:30 09/28/16 22:29 Pantoprazole (Protonix) 40 mg DAILY ORAL 08/31/16 09:00 09/30/16 08:59 09/02/16 09:30 Zolpidem Tartrate (Ambien) 5 mg DAILYPRN PRN ORAL Insomnia 08/29/16 22:30 09/28/16 22:29 09/01/16 23:43 Clayton Geronimo MD September 02, 2016 10:33
[2016-09-02] MEDS ORDERED: Adenosine Inj IVP ONE (13:30)
--- NOTE | 2016-09-02 14:32 | Cardiac Electrophysiology PN ---
Assessment/Plan Assessment/Plan 1. Accelerated hypertension. Better on metoprolol 50 mg twice a day,Norvasc 5 mg twice a day, losartan 50 mg twice a day and hydralazine 25 mg twice a day. 2. Chest pain atypical with ejection fraction of 60%. His troponins are negative. Nuclear stress test results from today is pending. 3. Severe headache with history of migraine. 4. Opiate dependence. 5. Multiple sclerosis. Subjective Subjective Still has headache. Had nuclear stress test today. Results are pending. Objective Last 24 Hour Vital Signs Date Time Temp Pulse Resp B/P Pulse Ox O2 Delivery O2 Flow Rate FiO2 09/02/16 14:03 148/105 09/02/16 12:00 87 09/02/16 11:32 97.7 91 20 148/105 94 Nasal Cannula 2.0 09/02/16 09:31 93 141/103 09/02/16 09:30 93 141/103 09/02/16 08:37 97.5 92 20 141/103 99 Nasal Cannula 2.0 09/02/16 08:00 107 09/02/16 06:05 130/48 09/02/16 06:04 130/48 09/02/16 06:02 130/48 09/02/16 04:48 97.8 18 130/48 95 Room Air 09/02/16 04:00 88 09/02/16 00:24 99 09/02/16 00:19 97.7 18 153/108 95 Room Air 09/01/16 21:38 91 159/106 09/01/16 21:38 159/90 09/01/16 21:37 157/90 09/01/16 20:00 96.6 18 157/90 95 Room Air 09/01/16 20:00 102 09/01/16 17:48 91 159/106 09/01/16 16:41 97.7 91 20 155/101 96 Room Air 09/01/16 16:00 88 Intake and Output 09/01/16 09/02/16 19:00 07:00 # Voids 1 1 Objective HEAD AND NECK: Showed no JVD. LUNGS: Clear. CARDIOVASCULAR: Regular S1 and S2 with no gallop or murmur. ABDOMEN: Soft. EXTREMITIES: No pitting edema. ELIANA SWANN September 02, 2016 14:32
[2016-09-02] MEDS: LORazepam Inj 2mg/ml 1ml IV PRN (16:12)
--- NOTE | 2016-09-02 16:13 | Neurology Progress Note ---
Objective Physical Exam Last Vital Signs Date Time Temp Pulse Resp B/P Pulse Ox O2 Delivery O2 Flow Rate FiO2 09/02/16 15:22 97.3 89 20 130/76 Nasal Cannula 2.0 09/02/16 11:32 94 Impression/Recommendations Problems: (1) Multiple sclerosis, relapsing-remitting (2) Lumbar degenerative disc disease (3) Tension headache (4) Hypertension (5) Opiate dependence (6) Accelerated hypertension Status: unchanged Recommendations #[id number] MARKOS CROOKS September 02, 2016 16:13
--- NOTE | 2016-09-02 20:28 | Consultation ---
DATE OF CONSULTATION: 09/02/2016 TIME SEEN: 2 p.m. CONSULTING PHYSICIAN: Dennis Hoffman D.O. CHIEF COMPLAINT: Shortness of breath, chest pain, and headache. BRIEF HISTORY: The patient is a 51-year-old male from home, who presents with increased shortness of breath, headache, and chest pain, diagnosed with the ACS, headache, and hypertension, and admitted to telemetry for further care. Currently, slightly weak, headache, and in bed. No complaints. PAST MEDICAL HISTORY: Includes hypertension, multiple sclerosis, and lumbar disc disease. PAST SURGICAL HISTORY: Epidural. MEDICATIONS: Hydromorphone, hydralazine, Dilaudid, Protonix, Catapres, Benadryl, Cozaar, Lopressor, Norvasc, Ativan, Tylenol, Zofran, Ambien, and nitroglycerin. ALLERGIES: Hydrocodone and ketorolac. SOCIAL HISTORY: No smoking, no alcohol, and no intravenous drug abuse. FAMILY HISTORY: Noncontributory. REVIEW OF SYSTEMS: Slight chest pain. Slightly short of breath. No nausea, vomiting, or diarrhea. PHYSICAL EXAMINATION: GENERAL: Calm in bed, oriented x3, and in no acute distress. VITAL SIGNS: Show temperature is 97 degrees, pulse 91, respirations 20, and blood pressure 148/105. CARDIOVASCULAR: No murmurs. LUNGS: Distant and clear. ABDOMEN: Bowel sounds positive. Nontender and nondistended. EXTREMITIES: No cyanosis, clubbing, or edema. NEUROLOGIC: Cranial nerves II through XII are grossly intact. Deep tendon reflexes 2+. Muscle strength 4/5. LABORATORY AND DIAGNOSTIC DATA: Labs at this time show CBC is normal. BMP show glucose 108, otherwise normal. Urine tox is positive for opiates. ASSESSMENT: 1. Acute coronary syndrome. 2. Headache. 3. Hypertension. 4. Multiple sclerosis. 5. Lumbar disc disease. PLAN: 1. OT, PT, and dietary evaluation. 2. Blood pressure and pain control. 3. Cardiology followup. 4. CBC and BMP in the morning. 5. Continue to follow this patient. Dennis Hoffman D.O. DR: SH[place]EE JOB#: [id number] CC:
[2016-09-02] MEDS: HydrALAZINE 50mg tab ORAL SCH (22:34)
--- NOTE | 2016-09-02 22:46 | Nephrology Progress Note ---
Assessment/Plan Problem List: (1) Accelerated hypertension (2) Opiate dependence (3) Multiple sclerosis (4) Neuropathic pain (5) Headache (6) Chest pain (7) Degenerative disc disease, cervical Plan Continue pain management Cardio f/u Stress test result pending Pulmo f/u DC plan Subjective Neurologic/Psychiatric: Reports: headache Subjective C/O headaches Objective Objective Last 24 Hour Vital Signs Date Time Temp Pulse Resp B/P Pulse Ox O2 Delivery O2 Flow Rate FiO2 09/02/16 22:34 154/92 09/02/16 21:57 95 157/92 09/02/16 20:00 97.3 93 20 152/97 93 Room Air 09/02/16 17:15 89 155/105 09/02/16 16:00 95 09/02/16 15:22 97.3 89 20 130/76 Nasal Cannula 2.0 09/02/16 14:03 148/105 09/02/16 12:00 87 09/02/16 11:32 97.7 91 20 148/105 94 Nasal Cannula 2.0 09/02/16 09:31 93 141/103 09/02/16 09:30 93 141/103 09/02/16 08:37 97.5 92 20 141/103 99 Nasal Cannula 2.0 09/02/16 08:00 107 09/02/16 06:05 130/48 09/02/16 06:04 130/48 09/02/16 06:02 130/48 09/02/16 04:48 97.8 18 130/48 95 Room Air 09/02/16 04:00 88 09/02/16 00:24 99 09/02/16 00:19 97.7 18 153/108 95 Room Air Intake and Output 09/01/16 09/02/16 18:59 06:59 # Voids 1 1 Height (Feet): 6 Height (Inches): 2.00 Weight (Pounds): 220 General Appearance: no apparent distress, alert EENT: normal ENT inspection Neck: normal alignment, supple Cardiovascular: normal rate, regular rhythm Respiratory/Chest: normal breath sounds, no respiratory distress Abdomen: no organomegaly Extremities: non-tender, normal inspection Neurologic: alert, oriented x 3, responsive, normal mood/affect QUINTEN ALVAREZ September 02, 2016 22:46
[2016-09-02] MEDS ORDERED: HYDROmorphone 1mg/ml Carpuject IVP ONE (23:30)
[2016-09-03] VITALS: BP 150/102
[2016-09-03] MEDS: LORazepam Inj 2mg/ml 1ml IV PRN ×2 (00:01→14:25)
[2016-09-03] MEDS: Zolpidem 5mg tab ORAL PRN (01:17)
[2016-09-03] MEDS: DiphenhydrAMINE 50mg/ml Inj IVP PRN ×4 (02:35→18:37)
[2016-09-03] MEDS: HYDROmorphone 2 MG in NS 55ml IVPB PRN ×2 (02:36→07:51)
[2016-09-03 04:00] VITALS: BP 147/110
--- NOTE | 2016-09-03 07:48 | Consultation ---
DATE OF CONSULTATION: 09/02/2016 NEUROLOGICAL CONSULTATION CONSULTING PHYSICIAN: Fletcher Scott M.D. REQUESTING PHYSICIAN: Ruperto Ghosh M.D. HISTORY OF PRESENT ILLNESS: The patient is a 51-year-old man, seen in neurological consultation to evaluate the exacerbation of severe headaches, weakness, pain in the left lower extremity. The patient informed me on the day of examination, he was not feeling well, he went to a local pharmacy where he checked his blood pressure which was 170/120. With this, he decided to come to the emergency room for evaluation. He was complaining of having at least two days of chest pain and headache. He describes chest pain level of 8/10 and his headache is 10/10. Blood pressure was 167/111, afebrile, pulse oximetry 100%. CAT scan of the brain, mild atrophy, no acute changes. Lab work was obtained revealing a normal CBC, chemistry panel with blood glucose 134, otherwise unremarkable, hyperlipidemia, total cholesterol 242. Chest x-ray, no acute changes noted. His vital signs remained stable with a preponderance of hypertension of 148/105. Since admission to present, adjustment of his opiates was made and now he feels better. He continued to have multiple complaints. The patient informed me that he has always had chronic headaches but last year it did becoming increasingly worse, often throbbing, pulsating, complained of blurriness of vision. He is complaining of intermittently shooting pain in his both lower extremities, both knees, constant pain in the left side of the low back region, feeling heavy sensation in both lower extremities more on the left, difficulty with ambulation, weakness in the left lower extremity. The patient currently undergoing a workup for accelerated hypertension, maintained on metoprolol, Norvasc, losartan, hydralazine. He has atypical chest pain with ejection fraction of 60% but negative troponins. The patient has a history of multiple sclerosis diagnosed in 2002 at [facility]. He was initially placed on Copaxone, at times of exacerbation gets steroids, then Copaxone was changed to Avonex and finally for 2 years he was on Tysabri infusions, his last infusion was two years ago. Since 2002, he developed chronic pain, now opiate dependent with drug-seeking behavior, requiring multiple admissions to the emergency room. PAST MEDICAL HISTORY: Hypertension, hyperlipidemia. MEDICATIONS: He is on clonidine, Flexeril, Benadryl, lisinopril, hydrochlorothiazide, Dilaudid, lisinopril, lorazepam as needed, metoprolol, Remeron 7.5 mg, ranitidine, and zolpidem. ALLERGIES: Hydrocodone and ketorolac. FAMILY HISTORY: Noncontributory. SOCIAL HISTORY: Lives with his . Denies alcohol or drug abuse. Nonsmoker. REVIEW OF SYSTEMS: Fourteen point review of symptom was obtained, this was negative except those in history of present illness. PHYSICAL EXAMINATION: GENERAL: A well-developed, well-nourished, muscular man, not in acute distress. HEENT: Head is normocephalic. No evidence of trauma. VITAL SIGNS: Blood pressure 142/90, respiration 18. HEENT: Head normocephalic. Slight tenderness on palpation of base of skull. NECK: Supple. No meningeal signs. MUSCULOSKELETAL: Unremarkable. Peripheral pulses 1+ symmetric. MENTAL STATUS: The patient is alert and oriented x3. His speech is fluent. Language is intact. No aphasia. No apraxia. Cognitive function normal. CRANIAL NERVE II: Pupils both responding to light and accommodation. Extraocular movement full range. CRANIAL NERVE V: Normal corneal responses. CRANIAL NERVE VII: No gross asymmetry. CRANIAL NERVE VIII: Normal hearing. CRANIAL NERVE IX THROUGH XII: Tongue is in midline. Symmetric palate elevation. MOTOR EXAMINATION: Increased muscle tone both lower extremities, predominantly left leg with spasticity of left leg, 4/5 weakness. Deep tendon reflexes are depressed bilaterally. Biceps, triceps, brachioradialis, 1+ both lower extremities more on the left. Positive Babinski on the left. SENSORY EXAM: Normal to pinprick light touch except some decrease in pin sensation in the left lower extremity. Gait spastic and hemiparetic. IMPRESSION: 1. History of multiple sclerosis, recurrent, now appears in remission. 2. Chronic pain syndrome, opiate dependent. 3. History of lumbar diskogenic disease with radiculopathy. 4. Hypertension. 5. Hyperlipidemia. 6. Diabetes type 2. 7. Chronic headache, muscle contraction type. RECOMMENDATION: Continue with current treatment including antidepressants, immunomodulators, and planning to be seen by a local neurologist. Patient may need workup for acute process with MRI of the brain, cervical thoracic spine with and without contrast. He had no side effects with previous treatments and Copaxone 40 mg three times a week subcutaneous will be appropriate choice. Meanwhile, the patient with his pain management. He will be maintained on the current treatment with advice from depilatory painter. We will start the patient on Neurontin 300 mg at bedtime to be titrated as necessary. Thank you for allowing me to see this interesting patient in neurological consultation. Fletcher Scott M.D. DR: Yefri JOB#: [id number] CC:
[2016-09-03 07:55] LABS: BASOPHILS % (AUTO) 1.7 % (0.0-2.0); EOSINOPHILS % (AUTO) 3.3 % (0.0-3.0); LYMPHOCYTES % (AUTO) 32.9 % (20.0-45.0); MEAN CORPUSCULAR HEMOGLOBIN 31.2 PG (27.0-31.0); MEAN CORPUSCULAR HGB CONC 33.7 G/DL (32.0-36.0); MEAN CORPUSCULAR VOLUME 93 FL (80-99); MEAN PLATELET VOLUME 8.7 FL (6.5-10.1); NEUTROPHILS % (AUTO) 53.1 % (45.0-75.0); PLATELET COUNT 175 K/UL (150-450); RED BLOOD COUNT 4.92 M/UL (4.70-6.10); RED CELL DISTRIBUTION WIDTH 13.1 % (11.6-14.8); WHITE BLOOD COUNT 6.1 K/UL (4.8-10.8)
[2016-09-03 07:56] VITALS: BP 140/105
[2016-09-03 08:07] LABS: ANION GAP 13 (5-15); CALCIUM 9.2 mg/dL (8.6-10.2); CARBON DIOXIDE 25 mEQ/L (20-30); CHLORIDE 99 mEQ/L (98-107); CREATININE 1.1 mg/dL (0.7-1.2); GLOMERULAR FILTRATION RATE > 60 mL/min (>60); HEMOLYSIS 10; POTASSIUM 3.9 mEQ/L (3.4-4.9); SODIUM 137 mEQ/L (135-145)
--- NOTE | 2016-09-03 08:17 | Progress Note ---
HISTORY OF PRESENT ILLNESS: The patient is a 51-year-old male who is outpatient office patient came to the emergency room for having chest pain, short of breath, and palpitation. The patient denies any fever, chills. The patient came for recurrent chest pain. PAST MEDICAL HISTORY: Significant for hypertension, uncontrolled renal insufficiency. MEDICATIONS: See the list. ALLERGIES: No known drug allergies. FAMILY HISTORY: Noncontributory. PHYSICAL EXAMINATION: GENERAL: This is is a young male who is currently . HEENT: CHEST: Bilaterally crackles. CARDIOVASCULAR: Regular rhythm. No gallop. No murmur. ABDOMEN: Soft. Positive bowel sounds. Nontender. EXTREMITIES: CCE. NEUROLOGICAL: No focal deficit. ASSESSMENT AND PLAN: 1. Acute coronary syndrome. 2. Accelerated hypertension. 3. Obesity. 4. Renal insufficiency. PLAN: We will currently continue medical treatment. The patient had a stress test with results are pending. We will continue supportive treatment. Continue antihypertensive. Monitor blood pressure. Anish Bal M.D. DR: Vern JOB#: [id number] CC:
--- NOTE | 2016-09-03 08:19 | General Progress Note ---
Assessment/Plan Problem List: (1) Hypertension ICD Codes: I10 - Essential (primary) hypertension SNOMED: 10597847 (2) Chest pain ICD Codes: R07.9 - Chest pain, unspecified SNOMED: 95185462 (3) ACS (acute coronary syndrome) ICD Codes: I20.0 - Unstable angina SNOMED: 803376110 (4) Pain ICD Codes: R52 - Pain, unspecified SNOMED: 65387316 (5) Headache (6) Multiple sclerosis, secondary progressive ICD Codes: G35 - Multiple sclerosis, secondary progressive SNOMED: 935444313 Status: stable, progressing, tolerating diet Assessment/Plan ot pt diet bp/pain control cardio f/u dc plan Subjective Constitutional: Reports: weakness Allergies: Coded Allergies: KETOROLAC (Verified Allergy, Severe, Anaphylaxis, 06/19/15) HYDROCODONE (Verified Allergy, Intermediate, Itching, 06/19/15) All Systems: reviewed and negative except above Subjective calm in bed Objective Last 24 Hour Vital Signs Date Time Temp Pulse Resp B/P Pulse Ox O2 Delivery O2 Flow Rate FiO2 09/03/16 07:56 97.7 91 20 140/105 98 Nasal Cannula 2.0 09/03/16 04:00 88 09/03/16 04:00 97.9 103 20 147/110 95 Room Air 09/03/16 03:06 97.2 09/03/16 00:00 90 09/03/16 00:00 97.2 90 20 150/102 97 Room Air 09/02/16 23:07 97.3 09/02/16 22:34 154/92 09/02/16 21:57 95 157/92 09/02/16 20:00 97.3 93 20 152/97 93 Room Air 09/02/16 20:00 92 09/02/16 17:15 89 155/105 09/02/16 16:00 95 09/02/16 15:22 97.3 89 20 130/76 Nasal Cannula 2.0 09/02/16 14:03 148/105 09/02/16 12:00 87 09/02/16 11:32 97.7 91 20 148/105 94 Nasal Cannula 2.0 09/02/16 09:31 93 141/103 09/02/16 09:30 93 141/103 09/02/16 08:37 97.5 92 20 141/103 99 Nasal Cannula 2.0 Intake and Output 09/02/16 09/03/16 19:00 07:00 Intake Total 912 ml 600 ml Output Total 400 ml Balance 912 ml 200 ml Intake Oral 240 ml 600 ml IV Total 672 ml Output Urine Total 400 ml # Voids 4 Laboratory Tests 09/03/16 07:20: White Blood Count 6.1, Red Blood Count 4.92, Hemoglobin 15.3, Hematocrit 45.5, Mean Corpuscular Volume 93, Mean Corpuscular Hemoglobin 31.2H, Mean Corpuscular Hemoglobin Concent 33.7, Red Cell Distribution Width 13.1, Platelet Count 175, Mean Platelet Volume 8.7, Neutrophils (%) (Auto) 53.1, Lymphocytes (%) (Auto) 32.9, Monocytes (%) (Auto) 9.0, Eosinophils (%) (Auto) 3.3H, Basophils (%) (Auto ) 1.7, Sodium Level 137, Potassium Level 3.9, Chloride Level 99, Carbon Dioxide Level 25, Anion Gap 13, Blood Urea Nitrogen 20, Creatinine 1.1, Estimat Glomerular Filtration Rate > 60, Glucose Level 140H, Calcium Level 9.2 Height (Feet): 6 Height (Inches): 2.00 Weight (Pounds): 220 General Appearance: alert EENT: normal ENT inspection Neck: normal alignment Cardiovascular: normal peripheral pulses, normal rate, regular rhythm Respiratory/Chest: chest wall non-tender, lungs clear, normal breath sounds Abdomen: normal bowel sounds, non tender, soft Extremities: normal inspection Edema: no edema noted Arm (L), no edema noted Arm (R), no edema noted Leg (L), no edema noted Leg (R), no edema noted Pedal (L), no edema noted Pedal (R), no edema noted Generalized Neurologic: responsive, motor weakness Skin: normal pigmentation, warm/dry BARBARA RAGLAND September 03, 2016 08:19
--- NOTE | 2016-09-03 08:51 | General Progress Note ---
Assessment/Plan Assessment/Plan (1) Multiple Sclerosis (2) Neuropathic pain (3) Cervical DDD (4) Cervical spondylosis (5) Lumbar DDD (6) Lumbar spondylosis (7) Narcotic Dependency Patient will be changed to Dilaudid 2mg IVP Q4H PRN severe pain. RX for [place] 5/325mg 20 tabs was written for patient in anticipation for discharge. Pt was d/w Dr. Scott and he concurred. Subjective Date patient seen: September 03, 2016 Time patient seen: 07:30 - am Allergies: Coded Allergies: KETOROLAC (Verified Allergy, Severe, Anaphylaxis, 06/19/15) HYDROCODONE (Verified Allergy, Intermediate, Itching, 06/19/15) Subjective Constitutional: Reports: weakness, Denies: chills, diaphoresis, fever, malaise , no symptoms, other HEENT: Denies: blurred vision, double vision, ear discharge, ear pain, eye pain , mouth pain, mouth swelling, no symptoms, nose congestion, nose pain, other, tearing, throat pain, throat swelling Cardiovascular: Denies: chest pain, edema, irregular heart rate, lightheadedness, no symptoms, other, palpitations, syncope Respiratory: Denies: SOB at rest, SOB with excertion, cough, no symptoms, orthopnea, other, shortness of breath, sputum, stridor, wheezing Gastrointestinal/Abdominal: Denies: abdomen distended, abdominal pain, black stools, blood in stool, constipated, diarrhea, difficulty swallowing, nausea, no symptoms, other, poor appetite, poor fluid intake, rectal bleeding, tarry stools, vomiting Genitourinary: Denies: burning, discharge, flank pain, frequency, hematuria, incontinence, no symptoms, other, pain, urgency Neurologic/Psychiatric: Reports: weakness, Denies: anxiety, depressed, emotional problems, headache, no symptoms, numbness, other, paresthesia, pre- existing deficit, seizure, tingling, tremors Endocrine: Denies: excessive sweating, flushing, increased hunger, increased thirst, increased urine, intolerance to cold, intolerance to heat, no symptoms, other, unexplained weight gain, unexplained weight loss Hematologic/Lymphatic: Denies: anemia, easy bleeding, easy bruising, no symptoms, other Subjective The pain has been severe and is not tolerated on the IVPB and he has not been able to sleep due to the pain. Objective Last 24 Hour Vital Signs Date Time Temp Pulse Resp B/P Pulse Ox O2 Delivery O2 Flow Rate FiO2 09/03/16 07:56 97.7 91 20 140/105 98 Nasal Cannula 2.0 09/03/16 04:00 88 09/03/16 04:00 97.9 103 20 147/110 95 Room Air 09/03/16 03:06 97.2 09/03/16 00:00 90 09/03/16 00:00 97.2 90 20 150/102 97 Room Air 09/02/16 23:07 97.3 09/02/16 22:34 154/92 09/02/16 21:57 95 157/92 09/02/16 20:00 97.3 93 20 152/97 93 Room Air 09/02/16 20:00 92 09/02/16 17:15 89 155/105 09/02/16 16:00 95 09/02/16 15:22 97.3 89 20 130/76 Nasal Cannula 2.0 09/02/16 14:03 148/105 09/02/16 12:00 87 09/02/16 11:32 97.7 91 20 148/105 94 Nasal Cannula 2.0 09/02/16 09:31 93 141/103 09/02/16 09:30 93 141/103 Intake and Output 09/02/16 09/03/16 19:00 07:00 Intake Total 912 ml 600 ml Output Total 400 ml Balance 912 ml 200 ml Intake Oral 240 ml 600 ml IV Total 672 ml Output Urine Total 400 ml # Voids 4 Laboratory Tests 09/03/16 07:20: White Blood Count 6.1, Red Blood Count 4.92, Hemoglobin 15.3, Hematocrit 45.5, Mean Corpuscular Volume 93, Mean Corpuscular Hemoglobin 31.2H, Mean Corpuscular Hemoglobin Concent 33.7, Red Cell Distribution Width 13.1, Platelet Count 175, Mean Platelet Volume 8.7, Neutrophils (%) (Auto) 53.1, Lymphocytes (%) (Auto) 32.9, Monocytes (%) (Auto) 9.0, Eosinophils (%) (Auto) 3.3H, Basophils (%) (Auto ) 1.7, Sodium Level 137, Potassium Level 3.9, Chloride Level 99, Carbon Dioxide Level 25, Anion Gap 13, Blood Urea Nitrogen 20, Creatinine 1.1, Estimat Glomerular Filtration Rate > 60, Glucose Level 140H, Calcium Level 9.2 Height (Feet): 6 Height (Inches): 2.00 Weight (Pounds): 220 Objective General Appearance: no apparent distress, alert EENT: PERRL/EOMI, normal ENT inspection Neck: non-tender, normal alignment Cardiovascular: normal peripheral pulses, normal rate, regular rhythm Respiratory/Chest: lungs clear, normal breath sounds Abdomen: non tender, soft Extremities: non-tender Edema: no edema noted Arm (L), no edema noted Arm (R), no edema noted Leg (L), no edema noted Leg (R), no edema noted Pedal (L), no edema noted Pedal (R), no edema noted Generalized Neurologic: alert, oriented x 3 Skin: warm/dry MAYCOL WILEY September 03, 2016 08:51
--- NOTE | 2016-09-03 08:57 | Pulmonology Progress Note ---
Assessment/Plan Assessment/Plan ASSESSMENT AND PLAN: 1. Accelerated hypertension. 2. Chest pain atypical with ejection fraction of 60%. Suspect cardiac etiology 3. Severe headache and the patient with history of migraine. 4. Opiate dependence. 5. Multiple sclerosis. Will follow Presently saturating normally on RA CXR negative Subjective Interval Events: None Constitutional: Reports: no symptoms HEENT: Repors: no symptoms Respiratory: Reports: dry cough, pleuritic pain Cardiovascular: Reports: no symptoms Gastrointestinal/Abdominal: Reports: no symptoms Allergies: Coded Allergies: KETOROLAC (Verified Allergy, Severe, Anaphylaxis, 06/19/15) HYDROCODONE (Verified Allergy, Intermediate, Itching, 06/19/15) Objective Last 24 Hour Vital Signs Date Time Temp Pulse Resp B/P Pulse Ox O2 Delivery O2 Flow Rate FiO2 09/03/16 07:56 97.7 91 20 140/105 98 Nasal Cannula 2.0 09/03/16 04:00 88 09/03/16 04:00 97.9 103 20 147/110 95 Room Air 09/03/16 03:06 97.2 09/03/16 00:00 90 09/03/16 00:00 97.2 90 20 150/102 97 Room Air 09/02/16 23:07 97.3 09/02/16 22:34 154/92 09/02/16 21:57 95 157/92 09/02/16 20:00 97.3 93 20 152/97 93 Room Air 09/02/16 20:00 92 09/02/16 17:15 89 155/105 09/02/16 16:00 95 09/02/16 15:22 97.3 89 20 130/76 Nasal Cannula 2.0 09/02/16 14:03 148/105 09/02/16 12:00 87 09/02/16 11:32 97.7 91 20 148/105 94 Nasal Cannula 2.0 09/02/16 09:31 93 141/103 09/02/16 09:30 93 141/103 Intake and Output 09/02/16 09/03/16 19:00 07:00 Intake Total 912 ml 1100 ml Output Total 400 ml Balance 912 ml 700 ml Intake Oral 240 ml 1100 ml IV Total 672 ml Output Urine Total 400 ml # Voids 4 General Appearance: no acute distress HEENT: normocephalic Respiratory/Chest: chest wall non-tender, lungs clear, normal breath sounds Cardiovascular: normal peripheral pulses, normal rate Laboratory Tests 09/03/16 07:20: White Blood Count 6.1, Red Blood Count 4.92, Hemoglobin 15.3, Hematocrit 45.5, Mean Corpuscular Volume 93, Mean Corpuscular Hemoglobin 31.2H, Mean Corpuscular Hemoglobin Concent 33.7, Red Cell Distribution Width 13.1, Platelet Count 175, Mean Platelet Volume 8.7, Neutrophils (%) (Auto) 53.1, Lymphocytes (%) (Auto) 32.9, Monocytes (%) (Auto) 9.0, Eosinophils (%) (Auto) 3.3H, Basophils (%) (Auto ) 1.7, Sodium Level 137, Potassium Level 3.9, Chloride Level 99, Carbon Dioxide Level 25, Anion Gap 13, Blood Urea Nitrogen 20, Creatinine 1.1, Estimat Glomerular Filtration Rate > 60, Glucose Level 140H, Calcium Level 9.2 Current Medications Medications (Trade) Dose Ordered Sig/Jessica Route PRN Reason Start Time Stop Time Status Last Admin Dose Admin Acetaminophen (Tylenol) 650 mg Q4H PRN ORAL Mild Pain (Pain Scale 1-3) 08/29/16 22:30 09/28/16 22:29 Acetaminophen (Tylenol) 650 mg Q4H PRN ORAL fever 08/29/16 22:30 09/28/16 22:29 Amlodipine Besylate (Norvasc) 5 mg BID ORAL 08/30/16 10:00 09/29/16 09:59 09/02/16 17:15 Clonidine HCl (Catapres) 0.1 mg Q6H PRN ORAL SBP>160 OR DBP>90 08/30/16 20:30 09/29/16 20:29 08/31/16 16:02 Dextrose (Dextrose 50%) STAT PRN IV Hypoglycemia 08/29/16 22:30 09/28/16 22:29 Diphenhydramine HCl (Benadryl) 25 mg Q4HR PRN IVP Itching 08/30/16 11:15 09/29/16 11:14 09/03/16 07:51 Gabapentin (Neurontin) 300 mg Q12HR ORAL 09/02/16 17:00 10/02/16 16:59 09/02/16 17:16 Heparin Sodium (Porcine) (Heparin 5000 units/ml) 5,000 units EVERY 12 HOURS SUBQ 08/30/16 22:00 09/29/16 21:59 09/02/16 22:02 Hydralazine HCl (Apresoline) 50 mg Q12HR ORAL 09/02/16 21:00 10/02/16 20:59 09/02/16 22:34 Hydromorphone HCl/ Sodium Chloride (Dilaudid/Sodium Chloride) 56 ml @ 224 mls/hr Q4H PRN IVPB Severe Pain (Pain Scale 7-10) 09/02/16 08:45 09/09/16 08:44 09/03/16 07:51 Lorazepam (Ativan 2mg/ml 1ml) 1 mg Q6HR PRN IV For agitation 08/30/16 10:00 09/06/16 09:59 09/03/16 00:01 Lorazepam (Ativan) 1 mg Q4H PRN ORAL For Anxiety 08/29/16 22:30 09/05/16 22:29 09/02/16 04:34 Losartan Potassium (Cozaar) 50 mg EVERY 12 HOURS ORAL 08/30/16 11:00 09/29/16 10:59 09/02/16 06:04 Metoprolol Tartrate (Lopressor) 50 mg Q12HR ORAL 08/30/16 11:00 09/29/16 10:59 09/02/16 21:57 Nitroglycerin (Ntg) 0.4 mg Q5M PRN SL Prn Chest Pain 08/29/16 19:15 08/29/16 19:53 Ondansetron HCl (Zofran) 4 mg Q6H PRN IVP Nausea & Vomiting 08/29/16 22:30 09/28/16 22:29 Pantoprazole 40 mg 40 mg DAILY ORAL 08/31/16 09:00 09/30/16 08:59 09/02/16 09:30 Zolpidem Tartrate (Ambien) 5 mg DAILYPRN PRN ORAL Insomnia 08/29/16 22:30 09/28/16 22:29 09/03/16 01:17 Clayton Geronimo MD September 03, 2016 08:57
[2016-09-03] MEDS: Heparin 5000 units/ml inj SUBQ SCH (09:00)
[2016-09-03] MEDS: HydrALAZINE 50mg tab ORAL SCH (09:46)
[2016-09-03] MEDS: Metoprolol 50mg tab ORAL SCH (09:47)
[2016-09-03] MEDS: Losartan 50mg tab ORAL SCH (09:47)
[2016-09-03 11:20] VITALS: BP 139/100
--- NOTE | 2016-09-03 15:01 | Diagnostic Imaging Report ---
Indication: chest pain Technique: The study was conducted under the supervision of a electrical maintenance man. Adenosine infusion followed by intravenous administration of 31.5 mCi of technetium 99m Myoview was performed. Three plane SPECT imaging of the heart was then performed. A resting study was performed as part of the one-day protocol with 10.8 mCi of technetium 99m myoview injected intravenously at that time. Three plane SPECT imaging of the heart was obtained. Comparison: None Clinical data: 1. Clinical response: Ischemic. Patient experienced chest pressure. 2. Electrocardiographic response: Non ischemic Findings: The myocardial perfusion scan demonstrates no definite fixed or reversible perfusion defects. LVEF is 62%. Impression: Negative myocardial SPECT imaging.
--- NOTE | 2016-09-03 15:06 | Cardiac Electrophysiology PN ---
Assessment/Plan Assessment/Plan 1. Accelerated hypertension. Continue metoprolol 50 mg twice a day,Norvasc 5 mg twice a day, losartan 50 mg twice a day and hydralazine 25 mg twice a day. 2. Chest pain atypical with ejection fraction of 60%. His troponins are negative. Nuclear stress test showed no ischemia or scar. 3. Severe headache with history of migraine. 4. Opiate dependence. 5. Multiple sclerosis. DW RN Subjective Subjective No chest pain or SOB. Had nuclear stress test yesterday. Objective Last 24 Hour Vital Signs Date Time Temp Pulse Resp B/P Pulse Ox O2 Delivery O2 Flow Rate FiO2 09/03/16 12:00 89 09/03/16 11:20 97.3 104 20 139/100 95 Nasal Cannula 2.0 09/03/16 10:38 97.7 09/03/16 09:47 91 140/105 09/03/16 09:47 91 140/105 09/03/16 09:47 140/105 09/03/16 09:46 140/105 09/03/16 08:00 92 09/03/16 07:56 97.7 91 20 140/105 98 Nasal Cannula 2.0 09/03/16 04:00 88 09/03/16 04:00 97.9 103 20 147/110 95 Room Air 09/03/16 03:06 97.2 09/03/16 00:00 90 09/03/16 00:00 97.2 90 20 150/102 97 Room Air 09/02/16 23:07 97.3 09/02/16 22:34 154/92 09/02/16 21:57 95 157/92 09/02/16 20:00 97.3 93 20 152/97 93 Room Air 09/02/16 20:00 92 09/02/16 17:15 89 155/105 09/02/16 16:00 95 09/02/16 15:22 97.3 89 20 130/76 Nasal Cannula 2.0 Intake and Output 09/02/16 09/03/16 19:00 07:00 Intake Total 912 ml 1100 ml Output Total 400 ml Balance 912 ml 700 ml Intake Oral 240 ml 1100 ml IV Total 672 ml Output Urine Total 400 ml # Voids 4 Laboratory Tests Test 09/03/16 07:20 White Blood Count 6.1 K/UL (4.8-10.8) Red Blood Count 4.92 M/UL (4.70-6.10) Hemoglobin 15.3 G/DL (14.2-18.0) Hematocrit 45.5 % (42.0-52.0) Mean Corpuscular Volume 93 FL (80-99) Mean Corpuscular Hemoglobin 31.2 PG (27.0-31.0) H Mean Corpuscular Hemoglobin Concent 33.7 G/DL (32.0-36.0) Red Cell Distribution Width 13.1 % (11.6-14.8) Platelet Count 175 K/UL (150-450) Mean Platelet Volume 8.7 FL (6.5-10.1) Neutrophils (%) (Auto) 53.1 % (45.0-75.0) Lymphocytes (%) (Auto) 32.9 % (20.0-45.0) Monocytes (%) (Auto) 9.0 % (1.0-10.0) Eosinophils (%) (Auto) 3.3 % (0.0-3.0) H Basophils (%) (Auto) 1.7 % (0.0-2.0) Sodium Level 137 mEQ/L (135-145) Potassium Level 3.9 mEQ/L (3.4-4.9) Chloride Level 99 mEQ/L (98-107) Carbon Dioxide Level 25 mEQ/L (20-30) Anion Gap 13 (5-15) Blood Urea Nitrogen 20 mg/dL (7-23) Creatinine 1.1 mg/dL (0.7-1.2) Estimat Glomerular Filtration Rate > 60 mL/min (>60) Glucose Level 140 mg/dL (74-106) H Calcium Level 9.2 mg/dL (8.6-10.2) Objective HEAD AND NECK: Showed no JVD. LUNGS: Clear. CARDIOVASCULAR: Regular S1 and S2 with no gallop or murmur. ABDOMEN: Soft. EXTREMITIES: No pitting edema. ELIANA SWANN September 03, 2016 15:06
[2016-09-03 15:35] VITALS: BP 139/90
[2016-09-03 17:14] VITALS: BP 139/90
--- NOTE | 2016-09-04 01:38 | Progress Note ---
HISTORY: This is a young 51-year-old male, who came to the emergency room for having chest pain and accelerated hypertension. The patient had a stress test, which was negative. His blood pressure is also better. The patient is cleared from Cardiology and going to go home. PHYSICAL EXAMINATION: He is doing fine. DISCHARGE DIAGNOSES: 1. Accelerated hypertension. 2. Acute coronary syndrome. 3. Obesity. PLAN: We will currently continue current treatment. Follow up in the office. Also, discussed with the charge nurse. Anish Bal M.D. DR: ANGE JOB#: [id number] CC:
--- NOTE | 2016-09-04 19:04 | Discharge Summary ---
Discharge Summary Hospital Course Date of Admission Aug 29, 2016 at 20:25 Date of Discharge September 03, 2016 at 19:00 Admitting Diagnosis acute coronary syndrome HPI Teto Granda is a 51 year old male who was admitted on Aug 29, 2016 at 20:25 for Acute Coronary Syndrome Hospital Course [id number] Discharge Discharge Disposition Patient was discharged to Home (01) Discharge Diagnoses: Alicia Castrejon NP September 04, 2016 19:04
--- NOTE | 2016-09-05 03:09 | Discharge Summary 2 SIG ---
DATE OF ADMISSION: 08/29/2016 DATE OF DISCHARGE: 09/03/2016 CONSULTANTS: 1. Joni Ferguson M.D. 2. Clayton Geronimo M.D. 3. Jassi Scott M.D. 4. Fletcher Scott M.D. 5. Anish Bal M.D. 6. Dennis Hoffman D.O. BRIEF HOSPITAL COURSE: The patient is a 51-year-old male with prior history of lumbar spondylosis, hypertension, gout, multiple sclerosis, migraine, anxiety, depression, and chronic pain, came in complaining of two day history of chest pain and headache. Chest pain was described to be squeezing, located on the left, 8/10. Blood pressure was elevated. The patient has throbbing headache 10/10. Denies photophobia or blurry vision. At ED, EKG showed normal sinus rhythm with no acute changes. Chest x-ray showed no acute process. CT of the head was negative. He was given aspirin and was admitted for further evaluation. Urine toxicology was positive for opiates. He was seen by Dr. Ferguson. Accelerated hypertension was treated by metoprolol, Norvasc, and losartan. Hydralazine was added to his medication regimen. Echocardiogram done showed EF 60% to 65%. Dr. Geronimo was consulted. The patient was saturating normally on room air. Chest x-ray was negative. He was seen by pain management and was given Dilaudid every four hours p.r.n. pain. Dr. Scott was consulted. The patient has history of multiple sclerosis diagnosed in 2002 at [facility] and was initially placed on Copaxone and at the time of exacerbation, receives steroid treatment. Copaxone was eventually changed to Avonex and for two years he was on Tysabri infusions and the last infusion has been two years ago. He was recommended to continue with current treatment. He had no side effects with previous treatment and Copaxone 40 mg three times a week subcutaneous is appropriate choice and was also started on Neurontin 300 mg nightly. His troponins has been negative. Nuclear stress test showed no ischemia or scar. He was then discharged home. Advised to follow up as outpatient. FINAL DIAGNOSES: 1. Atypical chest pain. 2. Accelerated hypertension. 3. Obesity. 4. Opiate dependence. 5. Severe headache with migraine. 6. Multiple sclerosis. 7. Hyperlipidemia. 8. Diabetes type 2. 9. Lumbar discogenic disease with radiculopathy. 10. Chronic pain syndrome. Ruperto Ghosh M.D. I have been assigned to dictate discharge summary on this account and I was not involved in the patient's management. Alicia Castrejon N.P. DR: Serenity JOB#: [id number] CC:
== END 2016-09-03 19:00 | disposition home or self-care (01) | DRG 313 ==
LOC: EMR 19:48 → 2E 20:25 → EDBEDREQ 21:50
DX: R07.89 Other chest pain (principal); F11.20 Opioid dependence, uncomplicated; I12.9 Hypertensive chronic kidney disease with stage 1 through stage 4 chronic kidney disease, or unspecified chronic kidney disease; G35 Multiple sclerosis; G43.909 Migraine, unspecified, not intractable, without status migrainosus; E11.9 Type 2 diabetes mellitus without complications; M51.16 Intervertebral disc disorders with radiculopathy, lumbar region; F41.9 Anxiety disorder, unspecified; Z88.6 Allergy status to analgesic agent; Z88.8 Allergy status to other drugs, medicaments and biological substances; N18.9 Chronic kidney disease, unspecified; M79.2 Neuralgia and neuritis, unspecified; M10.9 Gout, unspecified
CPT/HCPCS: 36415; 70450; 71010; 78452; 80048; 80053; 80061; 80300; 82550; 82553; 84484; 85025; 93005; 93017; 93306; J2405; J2765

== ENCOUNTER 2016-09-17 15:30 | Inpatient (IN) | payer MEDICARE, OTHER ==
[~2016-09-17] VITALS: Ht 182.9 cm; Wt 99.8 kg
[2016-09-17 15:59] VITALS: BP 170/99
[2016-09-17] MEDS ORDERED: Solu-MEDROL 125mg Inj IVP ONE (16:00)
[2016-09-17 16:21] VITALS: BP 159/105
[2016-09-17 16:45] LABS: BASOPHILS % (AUTO) 1.7 % (0.0-2.0); LYMPHOCYTES % (AUTO) 17.5 % (20.0-45.0); MEAN CORPUSCULAR HEMOGLOBIN 33.8 PG (27.0-31.0); MEAN CORPUSCULAR HGB CONC 36.5 G/DL (32.0-36.0); MEAN CORPUSCULAR VOLUME 93 FL (80-99); MEAN PLATELET VOLUME 8.8 FL (6.5-10.1); MONOCYTES % (AUTO) 6.7 % (1.0-10.0); NEUTROPHILS % (AUTO) 71.1 % (45.0-75.0); PLATELET COUNT 193 K/UL (150-450); RED BLOOD COUNT 4.77 M/UL (4.70-6.10); RED CELL DISTRIBUTION WIDTH 12.5 % (11.6-14.8); WHITE BLOOD COUNT 7.4 K/UL (4.8-10.8)
--- NOTE | 2016-09-17 16:58 | Emergency Room Report ---
History of Present Illness General Chief Complaint: Chest Pain Source: Patient, Medical Record Present Illness HPI Patient presents with complaints of diffuse bodyaches Includes complaining of weakness in his legs patient reports that he has history of multiple sclerosis and he feels that he is having a flareup Denies any shortness of breath denies Patient however did complain of midsternal chest pain Denies any pleurisy Denies any vomiting or diarrhea denies any fevers or chills Allergies: Coded Allergies: KETOROLAC (Verified Allergy, Severe, Anaphylaxis, 06/19/15) HYDROCODONE (Verified Allergy, Intermediate, Itching, 06/19/15) Patient History Past Medical History: see triage record Pertinent Family History: none Reviewed Nursing Documentation: PMH: Agreed, PSxH: Agreed Nursing Documentation-PMH Hx Cardiac Problems: Yes - CAD, multiple herniated discs, multiple sclerosis, [place] 2006 Hx Hypertension: Yes Hx Asthma: No Hx COPD: No Hx Diabetes: No Hx Cancer: No Hx Gastrointestinal Problems: No Hx Dialysis: No Hx Neurological Problems: No Hx Cerebrovascular Accident: Yes - TIA (2013) Hx Transient Ischemic Attacks: No Hx Dementia: No Hx Alzheimer's Disease: No Hx Parkinson's Disease: No Hx Meningitis: No Hx Encephalitis: No Hx Seizures: No Hx Epilepsy: No Hx Multiple Sclerosis: Yes Hx Cerebral Palsy: No Hx Amyotrophic Lat Sclerosis: No Hx Guillian-Austin Syndrome: No Hx Paralysis: No Hx Peripheral Neuropathy: No Hx Spinal Cord Injury: No Hx Head Trauma: No Hx Traumatic Brain Injury: No Hx Memory Loss: No Hx Concentration Difficulty: No Hx Speech Problem: No Hx Tremors: No Hx Vertigo: No Hx Dizziness: Yes - SLIGHT Hx Syncope: Yes Hx Headaches: Yes - SOMETIMES Hx Aphasia: No Hx Dysphasia: No Hx Numbness: Yes - RIGHT HAND Hx Weakness: Yes - ALL OF THE BODY Hx Fatigue: Yes - SLIGHT Hx Neurologic Surgery: No Hx Brain Shunt: No Review of Systems All Other Systems: negative except mentioned in HPI Physical Exam Vital Signs Date Time Temp Pulse Resp B/P Pulse Ox O2 Delivery O2 Flow Rate FiO2 09/17/16 15:33 97.9 87 16 162/106 100 Room Air 09/17/16 15:52 97 Sp02 EP Interpretation: reviewed, normal General Appearance: well appearing, no apparent distress Head: normocephalic, atraumatic Eyes: bilateral eye EOMI, bilateral eye PERRL ENT: hearing grossly normal, normal pharynx, TMs + canals normal, uvula midline Neck: full range of motion, supple, no meningismus, no bony tend Respiratory: lungs clear, normal breath sounds, no rhonchi, no respiratory distress, no retraction, no accessory muscle use Cardiovascular #1: normal peripheral pulses, regular rate, rhythm, no edema, no gallop, no JVD, no murmur Gastrointestinal: normal bowel sounds, non tender, soft, no mass, no organomegaly, non-distended, no guarding, no hernia, no pulsatile mass, no rebound Genitourinary: no CVA tenderness Musculoskeletal: normal inspection Neurologic: oriented x3, 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, 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, motor strength/ tone normal, sensory intact Psychiatric: mood/affect normal Skin: normal color, no rash, warm/dry, palpation normal Lymphatic: normal inspection, no adenopathy Medical Decision Making Diagnostic Impression: Primary Impression: Multiple sclerosis Additional Impression: Opiate dependence ER Course Patient is a fairly complex patient with multiple differential to consideration including but not limited to cardiac cardiopulmonary and vascular emergencies Patient also has consideration for possible multiple sclerosis flare however no signs of any focal weakness no obvious respiratory distress Patient was provided steroids Reports that he feels itchy and requesting Benadryl Patient's blood work remains appropriate However patient continues to complain of discomfort and weakness at this time was admitted for further inpatient care Labs Test 09/17/16 16:10 White Blood Count 7.4 K/UL (4.8-10.8) Red Blood Count 4.77 M/UL (4.70-6.10) Hemoglobin 16.1 G/DL (14.2-18.0) Hematocrit 44.2 % (42.0-52.0) Mean Corpuscular Volume 93 FL (80-99) Mean Corpuscular Hemoglobin 33.8 PG (27.0-31.0) Mean Corpuscular Hemoglobin Concent 36.5 G/DL (32.0-36.0) Red Cell Distribution Width 12.5 % (11.6-14.8) Platelet Count 193 K/UL (150-450) Mean Platelet Volume 8.8 FL (6.5-10.1) Neutrophils (%) (Auto) 71.1 % (45.0-75.0) Lymphocytes (%) (Auto) 17.5 % (20.0-45.0) Monocytes (%) (Auto) 6.7 % (1.0-10.0) Eosinophils (%) (Auto) 3.0 % (0.0-3.0) Basophils (%) (Auto) 1.7 % (0.0-2.0) Sodium Level 145 mEQ/L (135-145) Potassium Level 4.9 mEQ/L (3.4-4.9) Chloride Level 104 mEQ/L (98-107) Carbon Dioxide Level 26 mEQ/L (20-30) Anion Gap 15 (5-15) Blood Urea Nitrogen 17 mg/dL (7-23) Creatinine 1.1 mg/dL (0.7-1.2) Estimat Glomerular Filtration Rate > 60 mL/min (>60) Glucose Level 120 mg/dL (74-106) Calcium Level 9.6 mg/dL (8.6-10.2) Total Bilirubin < 0.2 mg/dL (0.0-1.2) Aspartate Amino Transf (AST/SGOT) 22 U/L (5-40) Alanine Aminotransferase (ALT/SGPT) 24 U/L (3-41) Alkaline Phosphatase 108 U/L (40-129) Total Creatine Kinase 153 U/L (38-174) Creatine Kinase MB 3.7 ng/mL (< 6.7) Creatine Kinase MB Relative Index 2.4 Troponin I < 0.30 ng/mL (<=0.30) Total Protein 5.7 g/dL (6.6-8.7) Albumin 4.1 g/dL (3.5-5.2) Globulin 1.6 g/dL Albumin/Globulin Ratio 2.5 (1.0-2.7) Rhythm Strip Diag. Results EP Interpretation: yes Rate: 77 Rhythm: NSR, no PVC's, no ectopy Last Vital Signs Date Time Temp Pulse Resp B/P Pulse Ox O2 Delivery O2 Flow Rate FiO2 09/17/16 16:29 80 18 99 Room Air 09/17/16 16:21 159/105 09/17/16 15:52 97 09/17/16 15:33 97.9 Status: improved Disposition: ADMITTED INPATIENT Condition: Serious PATT ARRIAGA D.O. September 17, 2016 16:58
[2016-09-17] MEDS ORDERED: DiphenhydrAMINE 50mg/ml Inj IVP ONE (17:00)
[2016-09-17] MEDS ORDERED: LORazepam Inj 2mg/ml 1ml IV ONE (17:00)
[2016-09-17 17:01] LABS: TROPONIN I < 0.30 ng/mL (<=0.30)
[2016-09-17 17:04] LABS: ALANINE AMINOTRANSFERASE 24 U/L (3-41); ALBUMIN/GLOBULIN RATIO 2.5 (1.0-2.7); ANION GAP 15 (5-15); ASPARTATE AMINO TRANSFERASE 22 U/L (5-40); CALCIUM 9.6 mg/dL (8.6-10.2); CARBON DIOXIDE 26 mEQ/L (20-30); CHLORIDE 104 mEQ/L (98-107); CREATININE 1.1 mg/dL (0.7-1.2); GLOMERULAR FILTRATION RATE > 60 mL/min (>60); HEMOLYSIS 77; POTASSIUM 4.9 mEQ/L (3.4-4.9); SODIUM 145 mEQ/L (135-145); TOTAL PROTEIN 5.7 g/dL (6.6-8.7)
[2016-09-17 17:15] LABS: CKMB 3.7 ng/mL (< 6.7)
[2016-09-17] MEDS ORDERED: HYDROmorphone 1 MG in NS 55 ML IV ONE (17:30)
[2016-09-17] MEDS ORDERED: HYDROmorphone 1mg/ml Carpuject ONE (17:33)
[2016-09-17 18:06] VITALS: BP 170/124
[2016-09-17] MEDS ORDERED: IBUPROFEN600 M1 (18:44)
[2016-09-17 19:16] VITALS: BP 173/116
[2016-09-17 20:51] VITALS: BP 171/120
[2016-09-17] MEDS: HYDROmorphone 1mg/ml Carpuject IVP PRN (22:17)
[2016-09-17] MEDS: Zolpidem 5mg tab ORAL PRN (22:54)
[2016-09-17] MEDS: cloNIDine 0.2mg Tab ORAL SCH (23:55)
[2016-09-18] VITALS (7 sets, daily range): BP systolic 143–162; BP diastolic 95–109
[2016-09-18] MEDS: HYDROmorphone 1mg/ml Carpuject IVP PRN ×2 (03:11→07:55)
[2016-09-18] MEDS: LORazepam 1mg tab ORAL PRN ×3 (03:13→18:04)
[2016-09-18] MEDS: cloNIDine 0.2mg Tab ORAL SCH ×3 (05:31→18:03)
[2016-09-18 06:39] LABS: BASOPHILS % (AUTO) 0.2 % (0.0-2.0); EOSINOPHILS % (AUTO) 0.1 % (0.0-3.0); LYMPHOCYTES % (AUTO) 12.6 % (20.0-45.0); MEAN CORPUSCULAR HEMOGLOBIN 31.2 PG (27.0-31.0); MEAN CORPUSCULAR HGB CONC 33.3 G/DL (32.0-36.0); MEAN CORPUSCULAR VOLUME 94 FL (80-99); MEAN PLATELET VOLUME 7.4 FL (6.5-10.1); MONOCYTES % (AUTO) 7.7 % (1.0-10.0); NEUTROPHILS % (AUTO) 79.4 % (45.0-75.0); PLATELET COUNT 203 K/UL (150-450); RED BLOOD COUNT 4.99 M/UL (4.70-6.10); RED CELL DISTRIBUTION WIDTH 12.8 % (11.6-14.8); WHITE BLOOD COUNT 9.5 K/UL (4.8-10.8)
[2016-09-18 07:00] LABS: ANION GAP 13 (5-15); CALCIUM 9.6 mg/dL (8.6-10.2); CARBON DIOXIDE 25 mEQ/L (20-30); CHLORIDE 103 mEQ/L (98-107); CREATININE 1.1 mg/dL (0.7-1.2); GLOMERULAR FILTRATION RATE > 60 mL/min (>60); HEMOLYSIS 7; POTASSIUM 4.8 mEQ/L (3.4-4.9); SODIUM 141 mEQ/L (135-145)
--- NOTE | 2016-09-18 14:01 | Consultation ---
DATE OF CONSULTATION: 09/18/2016 TIME SEEN: 7 a.m. CONSULTING PHYSICIAN: Dennis Hoffman D.O. CHIEF COMPLAINT: Multiple sclerosis flare, chest pain, and body ache. BRIEF HISTORY: This is a 51-year-old male with history of multiple sclerosis complaining of right chest pain, body ache increasing, has multiple sclerosis in the past, recognizes such came to [place] diagnosed with above, admitted to medical floor for further treatment. Currently, calm and sleeping in bed . PAST MEDICAL HISTORY: Hypertension, diabetes, chronic pain, multiple sclerosis, [place], and herniated disk. PAST SURGICAL HISTORY: Unknown. MEDICATIONS: Include HydroDIURIL, Catapres, Dilaudid, Benadryl, Ambien, and Ativan. ALLERGIES: Hydrocodone and Ketoralac. SOCIAL HISTORY: The patient is sleepy, refusing to answer questions. REVIEW OF SYSTEMS: Unavailable. PHYSICAL EXAMINATION: General: The patient is lethargic in bed, refuses to answer questions. VITAL SIGNS: Temperature is 96.0 degrees, pulse 88, respiratory rate 18, and blood pressure 148/95. CARDIOVASCULAR: No murmurs. LUNGS: Distant and clear. ABDOMEN: Bowel sound positive. Nontender and nondistended. EXTREMITIES: No cyanosis, clubbing, or edema NEUROLOGIC: The patient moves all extremities. LABORATORY AND DIAGNOSTIC DATA: Labs at this time show CBC is normal. BMP shows glucose 120 and troponin is less than 0.3, otherwise BMP is normal. ASSESSMENT: 1. Multiple sclerosis flare. 2. Chest pain. 3. Body ache. 4. Hypertension. 5. Diabetes. 6. Chronic pain. 7. History of myocardial infarction. 8. Herniated disk. PLAN: OT/PT. Dietary evaluation. Blood pressure and blood sugar control. Pain control. CBC and BMP. home medications. We will We will continue to follow this patient. Dennis Hoffman D.O. DR: Bess JOB#: [id number] CC:
[2016-09-18] MEDS ORDERED: NS 55ml IV ONE (14:13)
--- NOTE | 2016-09-18 16:29 | Cardiac Electrophysiology PN ---
Subjective Subjective Dictated [id number] 1. Accelerated hypertension. Resume metoprolol 50 mg twice a day,Norvasc 5 mg twice a day, losartan 50 mg twice a day and hydralazine 25 mg twice a day. 2. Chest pain atypical with ejection fraction of 60%. Nuclear stress test 2 weeks ago showed no ischemia or scar. 3. Severe headache with history of migraine. 4. Opiate dependence. 5. Multiple sclerosis. Objective Last 24 Hour Vital Signs Date Time Temp Pulse Resp B/P Pulse Ox O2 Delivery O2 Flow Rate FiO2 09/18/16 15:42 97.5 09/18/16 11:39 97.5 86 16 162/106 97 Room Air 09/18/16 11:07 162/102 09/18/16 08:25 96.6 09/18/16 07:58 96.6 77 18 143/99 97 Room Air 09/18/16 05:31 145/91 09/18/16 04:47 96.4 88 18 148/95 95 Room Air 09/18/16 00:00 97.8 82 18 158/98 99 Room Air 09/17/16 23:55 158/98 09/17/16 20:51 96.8 80 20 171/120 99 Room Air 09/17/16 19:43 97.9 16 173/116 98 Room Air 97 09/17/16 19:16 16 173/116 98 Room Air 09/17/16 18:06 97.9 09/17/16 18:06 84 19 170/124 99 Room Air 09/17/16 16:29 80 18 99 Room Air Intake and Output 09/17/16 09/18/16 19:00 07:00 Intake Total 500 ml Balance 500 ml Intake Oral 500 ml # Voids 3 # Bowel Movements 1 Laboratory Tests Test 09/18/16 06:05 White Blood Count 9.5 K/UL (4.8-10.8) Red Blood Count 4.99 M/UL (4.70-6.10) Hemoglobin 15.6 G/DL (14.2-18.0) Hematocrit 46.8 % (42.0-52.0) Mean Corpuscular Volume 94 FL (80-99) Mean Corpuscular Hemoglobin 31.2 PG (27.0-31.0) H Mean Corpuscular Hemoglobin Concent 33.3 G/DL (32.0-36.0) Red Cell Distribution Width 12.8 % (11.6-14.8) Platelet Count 203 K/UL (150-450) Mean Platelet Volume 7.4 FL (6.5-10.1) Neutrophils (%) (Auto) 79.4 % (45.0-75.0) H Lymphocytes (%) (Auto) 12.6 % (20.0-45.0) L Monocytes (%) (Auto) 7.7 % (1.0-10.0) Eosinophils (%) (Auto) 0.1 % (0.0-3.0) Basophils (%) (Auto) 0.2 % (0.0-2.0) Sodium Level 141 mEQ/L (135-145) Potassium Level 4.8 mEQ/L (3.4-4.9) Chloride Level 103 mEQ/L (98-107) Carbon Dioxide Level 25 mEQ/L (20-30) Anion Gap 13 (5-15) Blood Urea Nitrogen 18 mg/dL (7-23) Creatinine 1.1 mg/dL (0.7-1.2) Estimat Glomerular Filtration Rate > 60 mL/min (>60) Glucose Level 113 mg/dL (74-106) H Calcium Level 9.6 mg/dL (8.6-10.2) ELIANA SWANN September 18, 2016 16:29
[2016-09-18] MEDS: DiphenhydrAMINE 50mg/ml Inj IVP PRN (19:43)
[2016-09-18] MEDS: Zolpidem 5mg tab ORAL PRN (21:25)
[2016-09-18] MEDS: Metoprolol 50mg tab ORAL SCH (21:25)
[2016-09-18] MEDS: Losartan 50mg tab ORAL SCH (21:25)
--- NOTE | 2016-09-18 22:10 | History and Physical ---
History of Present Illness General Reason for Hospitalization: Chest Pain Present Illness HPI Patient is a 51 y/o male with PMHx significant for multiple sclerosis, hypertension, diabetes, chronic pain syndrome, [place], migraine, and herniated disk who presented to ED with complaints of diffuse bodyaches, BLE weakness, reports that he is having an MS flare. Denies any shortness of breath. Patient however did complain of midsternal chest pain Denies any vomiting or diarrhea denies any fevers or chills. Allergies: Coded Allergies: KETOROLAC (Verified Allergy, Severe, Anaphylaxis, 06/19/15) HYDROCODONE (Verified Allergy, Intermediate, Itching, 06/19/15) Medication History Scheduled Aspirin* (Aspir 81*), 81 MG ORAL DAILY, (Reported) Clonidine Hcl* (Catapres*), 0.2 MG ORAL Q6HR, (Reported) Hydrochlorothiazide* (Hydrochlorothiazide*), 50 MG ORAL DAILY Miscellaneous Medications Ibuprofen (Ibuprofen), (Reported) Discontinued Medications Acetaminophen (Tylenol), 650 MG ORAL Q6H PRN for Mild Pain/Temp > 100.5, ( Reported) Discontinued Reason: Therapy completed Amlodipine Besylate (Norvasc), 5 MG ORAL DAILY, (Reported) Discontinued Reason: Therapy completed Cyclobenzaprine Hcl* (Flexeril*), 10 MG ORAL THREE TIMES A DAY, (Reported) Discontinued Reason: Therapy completed Diphenhydramine Hcl* (Benadryl*), 25 MG ORAL Q6H PRN for Itching, (Reported) Discontinued Reason: Therapy completed Escitalopram Oxalate* (Lexapro*), 10 MG ORAL DAILY, (Reported) Discontinued Reason: Therapy completed Hydromorphone HCl (Dilaudid), 2 MG ORAL Q4H PRN for For Pain, (Reported) Discontinued Reason: Therapy completed Hydromorphone HCl (Dilaudid), 4 MG ORAL Q4H PRN for Pain Scale (6-10), (Reported ) Discontinued Reason: Therapy completed Lisinopril* (Zestril*), 40 MG ORAL DAILY Discontinued Reason: Therapy completed Lorazepam* (Lorazepam*), 0.5 MG ORAL Q6HR PRN for For Anxiety, (Reported) Discontinued Reason: Therapy completed Metoprolol Succinate* (Metoprolol Succinate*), 50 MG ORAL Q12HR, (Reported) Discontinued Reason: Therapy completed Mirtazapine (Mirtazapine), 7.5 MG ORAL BEDTIME, (Reported) Discontinued Reason: Therapy completed Ranitidine Hcl* (Zantac*), 150 MG ORAL TWICE A DAY, (Reported) Discontinued Reason: Therapy completed Zolpidem Tartrate* (Ambien*), 5 MG ORAL BEDTIME PRN for Insomnia, (Reported) Discontinued Reason: Therapy completed [Chemo], (Reported) Discontinued Reason: Therapy completed Patient History History Provided By: Patient Healthcare decision maker pt A&Ox4 Resuscitation status Advanced Directive on File Past Medical/Surgical History Past Medical/Surgical History: (1) Drug seeking behavior (2) Opiate dependence (3) Lumbar herniated disc (4) Headache (5) Anxiety disorder (6) Multiple sclerosis (7) Diabetes (8) Chronic pain (9) Accelerated hypertension (10) ACS (acute coronary syndrome) Review of Systems Constitutional: Reports: weakness Eye: Reports: no symptoms ENT: Reports: no symptoms Respiratory: Denies: HUIZAR, cough, no symptoms, orthopnea, other, see HPI, shortness of breath, sputum, stridor, wheezing Cardiovascular: Reports: chest pain Gastrointestinal: Denies: abdominal pain, constipation, diarrhea, hematemesis, melena, nausea, no symptoms, other, see HPI, vomiting Genitourinary: Denies: discharge, dysuria, frequency, hematuria, incontinence, no symptoms, other, pain, retention, see HPI, urgency, vag bleed/dc Musculoskeletal: Reports: back pain, joint pain, muscle pain Skin: Denies: change in color, change in hair/nails, dryness, lesions, no symptoms, other, rash, see HPI Psychiatric: Denies: HI, SI, anxiety, depressed feelings, emotional problems, hallucinations, no symptoms, other, prior hx, see HPI Neurological: Reports: headache Endocrine: Denies: excessive sweating, flushing, increased thirst, increased urine, intolerance to temperature, no symptoms, other, see HPI, unexplained weight loss Hematologic/Lymphatic: Denies: anemia, blood clots, diathesis, easy bleeding, easy bruising, no symptoms, other, see HPI, swollen glands Physical Exam General Appearance: no apparent distress, alert Lines, tubes and drains: peripheral HEENT: normocephalic, atraumatic Neck: normal alignment, supple, normal inspection Respiratory/Chest: lungs clear, normal breath sounds, no respiratory distress Cardiovascular/Chest: normal rate, regular rhythm Abdomen: non tender, soft, no organomegaly Extremities: non-tender, normal inspection Skin Exam: warm/dry Neurologic: alert, oriented x 3, responsive, normal mood/affect Last 24 Hour Vital Signs Date Time Temp Pulse Resp B/P Pulse Ox O2 Delivery O2 Flow Rate FiO2 09/18/16 21:25 76 160/109 09/18/16 21:25 160/109 09/18/16 20:13 98.2 09/18/16 20:00 97.9 76 18 160/109 99 Room Air 09/18/16 18:03 147/103 09/18/16 16:00 98.2 69 20 147/103 100 Room Air 09/18/16 11:39 97.5 86 16 162/106 97 Room Air 09/18/16 11:07 162/102 09/18/16 08:25 96.6 09/18/16 07:58 96.6 77 18 143/99 97 Room Air 09/18/16 05:31 145/91 09/18/16 04:47 96.4 88 18 148/95 95 Room Air 09/18/16 00:00 97.8 82 18 158/98 99 Room Air 09/17/16 23:55 158/98 Intake and Output 09/17/16 09/18/16 19:00 07:00 Intake Total 500 ml Balance 500 ml Intake Oral 500 ml # Voids 3 # Bowel Movements 1 Laboratory Tests Test 09/18/16 06:05 White Blood Count 9.5 K/UL (4.8-10.8) Red Blood Count 4.99 M/UL (4.70-6.10) Hemoglobin 15.6 G/DL (14.2-18.0) Hematocrit 46.8 % (42.0-52.0) Mean Corpuscular Volume 94 FL (80-99) Mean Corpuscular Hemoglobin 31.2 PG (27.0-31.0) H Mean Corpuscular Hemoglobin Concent 33.3 G/DL (32.0-36.0) Red Cell Distribution Width 12.8 % (11.6-14.8) Platelet Count 203 K/UL (150-450) Mean Platelet Volume 7.4 FL (6.5-10.1) Neutrophils (%) (Auto) 79.4 % (45.0-75.0) H Lymphocytes (%) (Auto) 12.6 % (20.0-45.0) L Monocytes (%) (Auto) 7.7 % (1.0-10.0) Eosinophils (%) (Auto) 0.1 % (0.0-3.0) Basophils (%) (Auto) 0.2 % (0.0-2.0) Sodium Level 141 mEQ/L (135-145) Potassium Level 4.8 mEQ/L (3.4-4.9) Chloride Level 103 mEQ/L (98-107) Carbon Dioxide Level 25 mEQ/L (20-30) Anion Gap 13 (5-15) Blood Urea Nitrogen 18 mg/dL (7-23) Creatinine 1.1 mg/dL (0.7-1.2) Estimat Glomerular Filtration Rate > 60 mL/min (>60) Glucose Level 113 mg/dL (74-106) H Calcium Level 9.6 mg/dL (8.6-10.2) Height (Feet): 6 Height (Inches): 0.00 Weight (Pounds): 220 Medications Current Medications Medications (Trade) Dose Ordered Sig/Jessica Route PRN Reason Start Time Stop Time Status Last Admin Dose Admin Amlodipine Besylate (Norvasc) 10 mg DAILY ORAL 09/19/16 09:00 10/19/16 08:59 Clonidine HCl (Catapres) 0.2 mg Q6HR ORAL 09/18/16 00:00 10/18/16 00:00 09/18/16 18:03 Diphenhydramine HCl (Benadryl) 25 mg Q6H PRN IVP Itching 09/18/16 15:30 10/18/16 15:29 09/18/16 19:43 Hydrochlorothiazide (Hydrodiuril) 50 mg DAILY ORAL 09/18/16 09:00 10/18/16 08:59 09/18/16 07:54 Hydromorphone HCl (Dilaudid) 1.5 mg Q4H PRN IVP Severe Pain (Pain Scale 7-10) 09/18/16 10:30 09/25/16 10:29 09/18/16 19:43 Lorazepam (Ativan) 1 mg Q6H PRN ORAL For Anxiety 09/17/16 22:00 09/24/16 21:59 09/18/16 18:04 Losartan Potassium (Cozaar) 50 mg EVERY 12 HOURS ORAL 09/18/16 21:00 10/18/16 20:59 09/18/16 21:25 Metoprolol Tartrate (Lopressor) 50 mg Q12HR ORAL 09/18/16 21:00 10/18/16 20:59 09/18/16 21:25 Ondansetron HCl (Zofran) 4 mg Q4H PRN IVP Nausea & Vomiting 09/18/16 15:30 10/18/16 15:29 Zolpidem Tartrate (Ambien) 5 mg HSPRN PRN ORAL Insomnia 09/17/16 22:00 10/17/16 21:59 09/18/16 21:25 Assessment/Plan Problem List: (1) Accelerated hypertension (2) Multiple sclerosis, secondary progressive ICD Codes: G35 - Multiple sclerosis, secondary progressive SNOMED: 638717142 (3) Drug seeking behavior (4) Chronic pain ICD Codes: G89.29 - Other chronic pain SNOMED: 04554641 (5) Chest pain ICD Codes: R07.9 - Chest pain SNOMED: 02826036 (6) Narcotic dependence ICD Codes: F19.20 - Narcotic dependence SNOMED: 61838014 Assessment/Plan Monitor BP Cardiology consult Pain management as needed Monitor lytes - stable PT/OT eval AM labs QUINTEN ALVAREZ September 18, 2016 22:10
--- NOTE | 2016-09-19 00:01 | Consultation ---
DATE OF CONSULTATION: 09/18/2016 CARDIOLOGY CONSULTATION REASON FOR CONSULTATION: Management of chest pain and hypertension. HISTORY OF PRESENT ILLNESS: The patient is a 51-year-old gentleman with a history of back pain, multiple sclerosis, and history of opiate dependence, who was recently discharged from the hospital on 09/03/2016 for accelerated hypertension and atypical chest pain. At that time, the patient was discharged on metoprolol 50 mg twice a day, Norvasc 5 mg twice a day, losartan 50 mg twice a day as well as Cardizem 25 mg b.i.d. The patient underwent a nuclear stress test that showed no evidence of ischemia or scar. The patient presented to the emergency room complaining of right-sided chest pain and body ache as well as right foot weakness. The patient was admitted and Cardiology consultation was obtained for further evaluation. PAST MEDICAL HISTORY: Hypertension, diabetes, multiple sclerosis, herniated disk. MEDICATIONS: Per reconciliation. ALLERGIES: Allergic to ketorolac and hydrocodone. SOCIAL HISTORY: He lives at home. Does not smoke or drink alcohol. REVIEW OF SYSTEM: Review of system was thoroughly performed that was negative other than what was mentioned in the history of present illness. PHYSICAL EXAMINATION: VITAL SIGNS: Blood pressure is 162/106, pulse is 86, respirations 16, temperature is 97.5 degrees. HEAD AND NECK: Showed no JVD or carotid bruit. LUNGS: Clear. CARDIOVASCULAR: Shows regular S1 and S2. ABDOMEN: Soft. EXTREMITIES: No pitting edema. LABORATORY AND DIAGNOSTIC DATA: hematocrit 46, and platelet count of 203,000. Sodium is 141, potassium is 4.8, BUN of 18, creatinine 1.1 and glucose of 113. INR is 1.1. D-dimer is less than 100. ASSESSMENT AND PLAN: 1. Accelerated hypertension. Resume the patient on antihypertensive medication as mentioned above. 2. Atypical chest pain. Nuclear stress test just two weeks ago was negative. 3. Multiple sclerosis. Further evaluation by Dr. Ghosh. Thank you very much, Dr. Ghosh, for allowing me to participate in the care of this patient. Please do not hesitate to contact me for any questions regarding my evaluation. Joni Toluie, M.D. DR: Oleg JOB#: [id number] CC:
[2016-09-19] MEDS: cloNIDine 0.2mg Tab ORAL SCH ×4 (00:03→17:13)
[2016-09-19] MEDS: Zolpidem 5mg tab ORAL PRN (02:53)
[2016-09-19 04:00] VITALS: BP 143/93
[2016-09-19] MEDS: DiphenhydrAMINE 50mg/ml Inj IVP PRN ×3 (04:14→17:10)
[2016-09-19] MEDS: LORazepam 1mg tab ORAL PRN ×3 (05:59→21:06)
[2016-09-19 07:17] LABS: BASOPHILS % (AUTO) 0.9 % (0.0-2.0); EOSINOPHILS % (AUTO) 1.5 % (0.0-3.0); LYMPHOCYTES % (AUTO) 29.5 % (20.0-45.0); MEAN CORPUSCULAR HEMOGLOBIN 31.1 PG (27.0-31.0); MEAN CORPUSCULAR HGB CONC 32.8 G/DL (32.0-36.0); MEAN CORPUSCULAR VOLUME 95 FL (80-99); MEAN PLATELET VOLUME 8.2 FL (6.5-10.1); MONOCYTES % (AUTO) 6.1 % (1.0-10.0); NEUTROPHILS % (AUTO) 61.9 % (45.0-75.0); PLATELET COUNT 206 K/UL (150-450); RED BLOOD COUNT 4.86 M/UL (4.70-6.10); RED CELL DISTRIBUTION WIDTH 12.9 % (11.6-14.8); WHITE BLOOD COUNT 10.4 K/UL (4.8-10.8)
[2016-09-19 07:33] LABS: ANION GAP 16 (5-15); CALCIUM 9.3 mg/dL (8.6-10.2); CARBON DIOXIDE 25 mEQ/L (20-30); CHLORIDE 100 mEQ/L (98-107); CREATININE 1.2 mg/dL (0.7-1.2); GLOMERULAR FILTRATION RATE > 60 mL/min (>60); HEMOLYSIS 4; POTASSIUM 3.7 mEQ/L (3.4-4.9); SODIUM 141 mEQ/L (135-145)
[2016-09-19] MEDS: Losartan 50mg tab ORAL SCH ×2 (08:18→21:05)
[2016-09-19] MEDS: Metoprolol 50mg tab ORAL SCH ×2 (08:19→21:06)
[2016-09-19 08:28] VITALS: BP 148/91
[2016-09-19 11:48] VITALS: BP 139/86
--- NOTE | 2016-09-19 15:37 | Cardiac Electrophysiology PN ---
Subjective Subjective 1. Accelerated hypertension. Better on metoprolol 50 mg twice a day,Norvasc 10 mg daily, losartan 50 mg twice a day and Clonidine 0.2 mg q6hr. 2. Chest pain atypical with ejection fraction of 60%. Nuclear stress test 2 weeks ago showed no ischemia or scar. 3. Severe headache with history of migraine. 4. Opiate dependence. 5. Multiple sclerosis. DW RN Objective Last 24 Hour Vital Signs Date Time Temp Pulse Resp B/P Pulse Ox O2 Delivery O2 Flow Rate FiO2 09/19/16 12:24 98.0 09/19/16 12:23 139/86 09/19/16 11:48 98.0 83 20 139/86 97 Room Air 09/19/16 08:28 98.4 88 20 148/91 96 Room Air 09/19/16 08:19 88 148/91 09/19/16 08:18 148/91 09/19/16 08:17 88 148/91 09/19/16 06:00 143/93 09/19/16 04:00 97.0 71 18 143/93 95 Room Air 09/19/16 00:03 145/102 09/18/16 23:44 98.1 74 18 149/100 100 Room Air 09/18/16 21:25 76 160/109 09/18/16 21:25 160/109 09/18/16 20:00 97.9 76 18 160/109 99 Room Air 09/18/16 18:03 147/103 09/18/16 16:00 98.2 69 20 147/103 100 Room Air Intake and Output 09/18/16 09/19/16 19:00 07:00 Intake Total 1080 ml 420 ml Output Total 1000 ml Balance 1080 ml -580 ml Intake Oral 1080 ml 420 ml Output Urine Total 1000 ml # Voids 5 Laboratory Tests Test 09/19/16 05:40 White Blood Count 10.4 K/UL (4.8-10.8) Red Blood Count 4.86 M/UL (4.70-6.10) Hemoglobin 15.1 G/DL (14.2-18.0) Hematocrit 45.9 % (42.0-52.0) Mean Corpuscular Volume 95 FL (80-99) Mean Corpuscular Hemoglobin 31.1 PG (27.0-31.0) H Mean Corpuscular Hemoglobin Concent 32.8 G/DL (32.0-36.0) Red Cell Distribution Width 12.9 % (11.6-14.8) Platelet Count 206 K/UL (150-450) Mean Platelet Volume 8.2 FL (6.5-10.1) Neutrophils (%) (Auto) 61.9 % (45.0-75.0) Lymphocytes (%) (Auto) 29.5 % (20.0-45.0) Monocytes (%) (Auto) 6.1 % (1.0-10.0) Eosinophils (%) (Auto) 1.5 % (0.0-3.0) Basophils (%) (Auto) 0.9 % (0.0-2.0) Sodium Level 141 mEQ/L (135-145) Potassium Level 3.7 mEQ/L (3.4-4.9) Chloride Level 100 mEQ/L (98-107) Carbon Dioxide Level 25 mEQ/L (20-30) Anion Gap 16 (5-15) H Blood Urea Nitrogen 15 mg/dL (7-23) Creatinine 1.2 mg/dL (0.7-1.2) Estimat Glomerular Filtration Rate > 60 mL/min (>60) Glucose Level 190 mg/dL (74-106) H Calcium Level 9.3 mg/dL (8.6-10.2) ELIANA SWANN September 19, 2016 15:37
[2016-09-19 16:07] VITALS: BP 142/85
--- NOTE | 2016-09-19 17:37 | Cardiology Report ---
APPROVED REPORT EKG Measurement Heart [id number] ME [id number] Normal sinus rhythm Anteroseptal infarct, age undetermined Abnormal ECG
[2016-09-19 20:00] VITALS: BP 144/98
[2016-09-20] VITALS: BP 128/83
[2016-09-20] MEDS: DiphenhydrAMINE 50mg/ml Inj IVP PRN ×4 (01:24→19:56)
[2016-09-20] MEDS: LORazepam 1mg tab ORAL PRN ×2 (03:37→12:22)
[2016-09-20 04:00] VITALS: BP 127/89
[2016-09-20] MEDS: cloNIDine 0.2mg Tab ORAL SCH ×5 (05:26→22:05)
[2016-09-20 08:00] VITALS: BP 146/80
[2016-09-20] MEDS: Metoprolol 50mg tab ORAL SCH ×2 (08:21→20:55)
[2016-09-20] MEDS: Losartan 50mg tab ORAL SCH ×2 (08:21→20:54)
[2016-09-20 12:00] VITALS: BP 148/90
--- NOTE | 2016-09-20 13:47 | Cardiac Electrophysiology PN ---
Subjective Subjective 1. Accelerated hypertension.Continue metoprolol 50 mg twice a day,Norvasc 10 mg daily, losartan 50 mg twice a day and change Clonidine to 0.3 mg tid 2. Chest pain atypical with ejection fraction of 60%. Nuclear stress test 2 weeks ago showed no ischemia or scar. 3. Severe headache with history of migraine. 4. Opiate dependence. 5. Multiple sclerosis. DW RN Objective Last 24 Hour Vital Signs Date Time Temp Pulse Resp B/P Pulse Ox O2 Delivery O2 Flow Rate FiO2 09/20/16 12:16 140/90 09/20/16 12:00 97.0 76 18 148/90 97 Room Air 09/20/16 09:57 97.6 09/20/16 08:21 80 146/80 09/20/16 08:21 146/80 09/20/16 08:20 80 146/80 09/20/16 08:00 97.6 84 18 146/80 97 Room Air 09/20/16 05:26 127/89 09/20/16 04:00 97.0 67 20 127/89 96 09/20/16 00:00 128/83 09/20/16 00:00 96.8 72 20 128/83 98 09/19/16 21:06 86 144/98 09/19/16 21:05 144/98 09/19/16 20:00 96.6 86 20 144/98 96 Room Air 09/19/16 17:13 142/85 09/19/16 16:07 98.4 85 20 142/85 99 Room Air Intake and Output 09/19/16 09/20/16 19:00 07:00 Intake Total 1200 ml Balance 1200 ml Intake Oral 1200 ml # Voids 3 ELIANA SWANN September 20, 2016 13:47
[2016-09-20 16:00] VITALS: BP 146/94
[2016-09-20 20:18] VITALS: BP 143/94
--- NOTE | 2016-09-20 20:44 | Nephrology Progress Note ---
Assessment/Plan Problem List: (1) Accelerated hypertension (2) Multiple sclerosis, secondary progressive (3) Drug seeking behavior (4) Chronic pain (5) Chest pain (6) Narcotic dependence Plan Monitor BP Cardio following Pain management as needed Monitor lytes - stable PT/OT eval AM labs Subjective Constitutional: Reports: weakness HEENT: Denies: blurred vision, double vision, ear discharge, ear pain, eye pain , mouth pain, mouth swelling, no symptoms, nose congestion, nose pain, other, tearing, throat pain, throat swelling Genitourinary: Denies: burning, discharge, flank pain, frequency, hematuria, incontinence, no symptoms, other, pain, urgency Neurologic/Psychiatric: Reports: weakness Subjective In no apparent distress Objective Objective Last 24 Hour Vital Signs Date Time Temp Pulse Resp B/P Pulse Ox O2 Delivery O2 Flow Rate FiO2 09/20/16 20:18 97.5 98 20 143/94 92 Room Air 09/20/16 19:46 97.0 09/20/16 16:00 97.4 80 18 146/94 97 Room Air 09/20/16 14:00 140/90 09/20/16 12:16 140/90 09/20/16 12:00 97.0 76 18 148/90 97 Room Air 09/20/16 09:57 97.6 09/20/16 08:21 80 146/80 09/20/16 08:21 146/80 09/20/16 08:20 80 146/80 09/20/16 08:00 97.6 84 18 146/80 97 Room Air 09/20/16 05:26 127/89 09/20/16 04:00 97.0 67 20 127/89 96 09/20/16 00:00 128/83 09/20/16 00:00 96.8 72 20 128/83 98 09/19/16 21:06 86 144/98 09/19/16 21:05 144/98 Intake and Output 09/19/16 09/20/16 19:00 07:00 Intake Total 1200 ml Balance 1200 ml Intake Oral 1200 ml # Voids 3 Height (Feet): 6 Height (Inches): 0.00 Weight (Pounds): 220 General Appearance: no apparent distress, alert EENT: normal ENT inspection Neck: non-tender, normal alignment Cardiovascular: normal rate, regular rhythm, no JVD Respiratory/Chest: lungs clear, normal breath sounds Abdomen: non tender, soft, no organomegaly Extremities: non-tender, normal inspection, no calf tenderness Neurologic: alert, oriented x 3, responsive, normal mood/affect QUINTEN ALVAREZ September 20, 2016 20:44
[2016-09-21] VITALS (8 sets, daily range): BP systolic 120–149; BP diastolic 72–100
[2016-09-21] MEDS: LORazepam Inj 2mg/ml 1ml IV PRN ×3 (00:45→20:51)
[2016-09-21] MEDS: DiphenhydrAMINE 50mg/ml Inj IVP PRN ×4 (03:03→22:29)
[2016-09-21] MEDS: cloNIDine 0.2mg Tab ORAL SCH ×3 (05:55→22:38)
[2016-09-21] MEDS: Losartan 50mg tab ORAL SCH ×2 (08:35→20:46)
[2016-09-21] MEDS: Metoprolol 50mg tab ORAL SCH ×2 (08:36→20:46)
[2016-09-21] MEDS ORDERED: cloNIDine 0.2mg Tab ORAL PRN (14:45)
--- NOTE | 2016-09-21 14:51 | Cardiac Electrophysiology PN ---
Subjective Subjective 1. Accelerated hypertension.Continue metoprolol 50 mg po BID,Norvasc 10 mg daily , losartan 50 mg twice a day and Clonidine 0.3 mg tid. Add prn Clonidine 2. Chest pain atypical with ejection fraction of 60%. Nuclear stress test showed no ischemia or scar. 3. Severe headache with history of migraine. 4. Opiate dependence. 5. Multiple sclerosis. DW RN Objective Last 24 Hour Vital Signs Date Time Temp Pulse Resp B/P Pulse Ox O2 Delivery O2 Flow Rate FiO2 09/21/16 14:23 139/86 09/21/16 12:00 97.7 82 20 140/90 92 Room Air 09/21/16 08:36 93 137/87 09/21/16 08:36 93 137/87 09/21/16 08:35 137/87 09/21/16 08:30 93 137/87 09/21/16 08:26 97.5 93 19 139/72 97 Room Air 09/21/16 05:55 120/86 09/21/16 04:53 97.7 85 20 120/86 97 Room Air 09/21/16 04:35 97.3 09/21/16 00:28 97.3 95 20 149/100 92 Room Air 09/20/16 22:05 143/94 09/20/16 20:55 98 143/94 09/20/16 20:54 143/94 09/20/16 20:18 97.5 98 20 143/94 92 Room Air 09/20/16 16:00 97.4 80 18 146/94 97 Room Air Intake and Output 09/20/16 09/21/16 19:00 07:00 Intake Total 1900 ml Output Total 6 ml Balance 1900 ml -6 ml Intake Oral 1900 ml Output Urine Total 6 ml # Voids 6 ELIANA SWANN September 21, 2016 14:51
--- NOTE | 2016-09-21 17:27 | Nephrology Progress Note ---
Assessment/Plan Problem List: (1) Accelerated hypertension (2) Multiple sclerosis, secondary progressive (3) Drug seeking behavior (4) Chronic pain (5) Chest pain (6) Narcotic dependence Plan Monitor BP Cardio following Pain management as needed Monitor lytes - stable PT/OT eval DC home AM labs Subjective Constitutional: Reports: weakness HEENT: Denies: blurred vision, double vision, ear discharge, ear pain, eye pain , mouth pain, mouth swelling, no symptoms, nose congestion, nose pain, other, tearing, throat pain, throat swelling Genitourinary: Denies: burning, discharge, flank pain, frequency, hematuria, incontinence, no symptoms, other, pain, urgency Neurologic/Psychiatric: Reports: headache Subjective In no apparent distress Objective Objective Last 24 Hour Vital Signs Date Time Temp Pulse Resp B/P Pulse Ox O2 Delivery O2 Flow Rate FiO2 09/21/16 14:23 139/86 09/21/16 12:00 97.7 82 20 140/90 92 Room Air 09/21/16 08:36 93 137/87 09/21/16 08:36 93 137/87 09/21/16 08:35 137/87 09/21/16 08:30 93 137/87 09/21/16 08:26 97.5 93 19 139/72 97 Room Air 09/21/16 05:55 120/86 09/21/16 04:53 97.7 85 20 120/86 97 Room Air 09/21/16 04:35 97.3 09/21/16 00:28 97.3 95 20 149/100 92 Room Air 09/20/16 22:05 143/94 09/20/16 20:55 98 143/94 09/20/16 20:54 143/94 09/20/16 20:18 97.5 98 20 143/94 92 Room Air Intake and Output 09/20/16 09/21/16 19:00 07:00 Intake Total 1900 ml Output Total 6 ml Balance 1900 ml -6 ml Intake Oral 1900 ml Output Urine Total 6 ml # Voids 6 Height (Feet): 6 Height (Inches): 0.00 Weight (Pounds): 220 General Appearance: no apparent distress, alert EENT: normal ENT inspection Neck: normal alignment Cardiovascular: regular rhythm Respiratory/Chest: normal breath sounds, no respiratory distress Abdomen: soft Extremities: non-tender, normal inspection, no calf tenderness Neurologic: alert, oriented x 3, responsive QUINTEN ALVAREZ September 21, 2016 17:27
[2016-09-22] VITALS (8 sets, daily range): BP systolic 111–147; BP diastolic 69–100
[2016-09-22] MEDS: LORazepam Inj 2mg/ml 1ml IV PRN ×3 (03:10→20:47)
[2016-09-22] MEDS: DiphenhydrAMINE 50mg/ml Inj IVP PRN ×3 (05:13→18:01)
[2016-09-22] MEDS: cloNIDine 0.2mg Tab ORAL SCH ×3 (05:49→22:00)
[2016-09-22] MEDS: Metoprolol 50mg tab ORAL SCH ×2 (10:22→21:00)
[2016-09-22] MEDS: Losartan 50mg tab ORAL SCH ×2 (10:22→21:00)
--- NOTE | 2016-09-22 16:54 | Nephrology Progress Note ---
Assessment/Plan Problem List: (1) Accelerated hypertension (2) Multiple sclerosis, secondary progressive (3) Drug seeking behavior (4) Chronic pain (5) Chest pain (6) Narcotic dependence Plan Monitor BP Cardio following Pain management as needed Monitor lytes - stable PT/OT eval AM labs Subjective Subjective In no apparent distress Objective Objective Last 24 Hour Vital Signs Date Time Temp Pulse Resp B/P Pulse Ox O2 Delivery O2 Flow Rate FiO2 09/22/16 14:45 86 134/79 09/22/16 14:06 143/89 09/22/16 12:00 98.6 102 18 143/89 94 Room Air 09/22/16 10:26 108 137/89 09/22/16 10:23 108 137/89 09/22/16 10:22 108 137/89 09/22/16 10:22 137/89 09/22/16 08:00 99.1 100 18 146/92 95 Room Air 09/22/16 05:49 124/78 09/22/16 05:44 97.2 09/22/16 04:00 98.1 89 18 124/78 Room Air 09/22/16 00:00 97.2 96 20 147/100 Room Air 09/21/16 22:38 134/75 09/21/16 22:37 91 134/75 09/21/16 20:46 90 129/82 09/21/16 20:46 129/82 09/21/16 20:00 98.2 90 20 129/82 95 Room Air Height (Feet): 6 Height (Inches): 0.00 Weight (Pounds): 220 QUINTEN ALVAREZ September 22, 2016 16:54
[2016-09-23] VITALS: BP 126/77
[2016-09-23] MEDS: DiphenhydrAMINE 50mg/ml Inj IVP PRN ×3 (00:31→14:10)
[2016-09-23] MEDS: Zolpidem 5mg tab ORAL PRN (02:04)
[2016-09-23 04:00] VITALS: BP 130/90
[2016-09-23] MEDS: LORazepam Inj 2mg/ml 1ml IV PRN (05:18)
[2016-09-23] MEDS: cloNIDine 0.2mg Tab ORAL SCH ×2 (06:00→14:00)
[2016-09-23 08:08] VITALS: BP 145/87
[2016-09-23] MEDS: Losartan 50mg tab ORAL SCH (08:44)
[2016-09-23] MEDS: Metoprolol 50mg tab ORAL SCH (08:44)
[2016-09-23 12:00] VITALS: BP 134/93
--- NOTE | 2016-09-23 13:34 | General Progress Note ---
Assessment/Plan Problem List: (1) Hypertension ICD Codes: I10 - Essential (primary) hypertension SNOMED: 73740406 (2) Multiple sclerosis ICD Codes: G35 - Multiple sclerosis SNOMED: 06592338 (3) Chronic pain ICD Codes: G89.29 - Other chronic pain SNOMED: 52473878 (4) Multiple sclerosis, relapsing-remitting ICD Codes: G35 - Relapsing remitting multiple sclerosis SNOMED: 469858563 Status: stable, progressing, tolerating diet Assessment/Plan ot pt diet pain control cbc bmp am Subjective Constitutional: Reports: weakness Allergies: Coded Allergies: KETOROLAC (Verified Allergy, Severe, Anaphylaxis, 06/19/15) HYDROCODONE (Verified Allergy, Intermediate, Itching, 06/19/15) All Systems: reviewed and negative except above Subjective calm in bed Objective Last 24 Hour Vital Signs Date Time Temp Pulse Resp B/P Pulse Ox O2 Delivery O2 Flow Rate FiO2 09/23/16 12:00 97.0 89 18 134/93 93 Room Air 09/23/16 10:30 97.2 09/23/16 08:44 98 145/87 09/23/16 08:44 98 145/87 09/23/16 08:44 145/87 09/23/16 08:08 97.2 98 18 145/87 98 Room Air 09/23/16 06:00 130/90 09/23/16 04:00 97.5 88 22 130/90 91 Room Air 09/23/16 00:00 98.1 87 22 126/77 94 Room Air 09/22/16 22:00 129/81 09/22/16 21:00 86 129/81 09/22/16 21:00 129/81 09/22/16 20:00 97.7 86 20 129/81 97 Room Air 09/22/16 16:00 97.5 80 18 111/69 96 Room Air 09/22/16 14:45 86 134/79 09/22/16 14:06 143/89 Intake and Output 09/22/16 09/23/16 19:00 07:00 Intake Total 1440 ml 500 ml Output Total 1600 ml Balance -160 ml 500 ml Intake Oral 1440 ml Other 500 ml Output Urine Total 1600 ml # Voids 3 3 # Bowel Movements 1 1 Height (Feet): 6 Height (Inches): 0.00 Weight (Pounds): 220 General Appearance: alert EENT: normal ENT inspection Neck: normal alignment Cardiovascular: normal peripheral pulses, normal rate, regular rhythm Respiratory/Chest: chest wall non-tender, lungs clear, normal breath sounds Abdomen: normal bowel sounds, non tender, soft Extremities: normal range of motion, non-tender Edema: no edema noted Arm (L), no edema noted Arm (R), no edema noted Leg (L), no edema noted Leg (R), no edema noted Pedal (L), no edema noted Pedal (R), no edema noted Generalized Neurologic: responsive, motor weakness Skin: normal pigmentation, warm/dry BARBARA RAGLAND September 23, 2016 13:34
--- NOTE | 2016-09-24 13:15 | Discharge Summary ---
Discharge Summary Hospital Course Date of Admission September 17, 2016 at 17:10 Date of Discharge September 23, 2016 at 15:00 Admitting Diagnosis flare multiple sclerosis HPI Teto Granda is a 51 year old male who was admitted on September 17, 2016 at 17:10 for Flare Multiple Sclerosis Hospital Course dc summary #[id number] Discharge Medications Continued Medications: Aspirin* (Aspir 81*) 81 Mg Tablet.dr 81 MG ORAL DAILY, TAB Clonidine Hcl* (Catapres*) 0.2 Mg Tablet 0.2 MG ORAL Q6HR for For High Blood Pressure, TAB FOR SBP OVER 160 Hydrochlorothiazide* (Hydrochlorothiazide*) 50 Mg Tablet 50 MG ORAL DAILY, #30 TAB Ibuprofen (Ibuprofen) 600 Mg Tablet #30 Discharge Condition Upon Discharge: stable Discharge Disposition Patient was discharged to Home (01) Discharge Diagnoses: Discharge Instructions Discharge Instructions Special Instructions I have been assigned to complete a D/C Summary on this account. I was not involved in the patient management Reena Vanegas NP ([place]te[place]) September 24, 2016 13:15
--- NOTE | 2016-09-24 23:02 | Discharge Summary 2 SIG ---
DATE OF ADMISSION: 09/17/2016 DATE OF DISCHARGE: 09/23/2016 REASON FOR ADMISSION: The patient is a 51-year-old male with history of MS, presented with complaints of diffuse body aches. He complained of weakness in his legs and denies shortness of breath. He does report midsternal chest pain. No radiation. No fever. No chills. No nausea. No vomiting. The patient denies shortness of breath or exertional shortness of breath. Workup in the emergency room revealed stable vital signs with a blood pressure. Blood pressure was elevated at 162/106. No leukocytosis. Stable hemoglobin and hematocrit. Electrolytes essentially stable. Glucose 120. LFT stable. Albumin 4.1. Troponin negative. EKG revealed normal sinus rhythm. No PVC. No ectopy. No ischemic changes. The patient was provided with steroids in the emergency department and there was consideration of possible multiple sclerosis flare, however, there was no signs of any focal weakness or obvious respiratory distress. The patient admitted for further management. ADMITTING DIAGNOSES: 1. Chest pain. 2. Multiple sclerosis, secondary progressive. 3. Opiate dependency. 4. Chronic pain. HOSPITAL COURSE: The patient admitted. Cardiology consult was requested. The patient had recent admission to the hospital two weeks ago. 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 The patient's echocardiogram on 08/31/2016 revealed ejection fraction of 60% to 65% and mild left ventricular hypertrophy. Blood pressure was managed with multiple regimen of antihypertensive including beta-josette, calcium channel josette and ARB and clonidine as well as p.r. n. clonidine. The patient had a stress test done on previous admission, which was negative, it showed no ischemia or scar. The patient has a history of opiate dependence and chronic pain due to the multiple sclerosis, secondary progressive. Pain management provided. DVT and GI prophylaxis provided. for headache with history of migraine. The patient was stable for discharge home. Echo revealed 60 to 65% ejection fraction and mild LVH. DISCHARGE DIAGNOSES: 1. Atypical chest pain. 2. Multiple sclerosis, secondary, progressive. 3. Hypertensive urgency secondary to accelerated hypertension. 4. Previous headache with history of migraine. 5. Opiate dependency. 6. Chronic pain. Ruperto Ghosh M.D. I have been assigned to dictate discharge summary on this account and I was not involved in the patient's management. Reena carrizaleskera NKassandraPKassandra DR: BHAVESH JOB#: [id number] CC:
== END 2016-09-23 15:00 | disposition home health service (06) | DRG 59 ==
LOC: EMR 16:02 → 4W 17:10 → EDBEDREQ 19:01
DX: G35 Multiple sclerosis (principal); F19.20 Other psychoactive substance dependence, uncomplicated; I10 Essential (primary) hypertension; Z79.891 Long term (current) use of opiate analgesic; E11.9 Type 2 diabetes mellitus without complications; Z76.5 Malingerer [conscious simulation]; Z88.6 Allergy status to analgesic agent; Z88.8 Allergy status to other drugs, medicaments and biological substances; I25.2 Old myocardial infarction; R07.89 Other chest pain; R51 Headache; G89.29 Other chronic pain
CPT/HCPCS: 36415; 80048; 80053; 82550; 82553; 84484; 85025; 93005; 97803; J2405

== ENCOUNTER 2016-10-04 20:39 | Emergency (ER) | payer MEDICARE, OTHER ==
[~2016-10-04] VITALS: Ht 183.5 cm; Wt 101.2 kg
[~2016-10-04 20:39] MED LIST changes: +IBUPROFEN600 M1
--- NOTE | 2016-10-04 21:06 | Emergency Room Report ---
History of Present Illness General Chief Complaint: Chest Pain Source: Patient Present Illness HPI Patient is a 51-year-old male who presented after increased chest pain. Patient had intermittent symptoms for the past hours. Patient reportedly had been having increased pain to his left hip which is major complaint. Patient stated that he had chronic back pain and this appeared been somewhat worse over the past few days the patient sees primary care physician and had began taking [place]. The patient taking clonidine for his blood pressure. Patient denies smoking. He reports having prior cardiac history. He denies exertional symptoms. Pain to his hip is worse with movements. He denies numbness or weakness to his extremities. Allergies: Coded Allergies: KETOROLAC (Verified Allergy, Severe, Anaphylaxis, 06/19/15) HYDROCODONE (Verified Allergy, Intermediate, Itching, 06/19/15) Patient History Past Medical History: see triage record Reviewed Nursing Documentation: PMH: Agreed, PSxH: Agreed Nursing Documentation-PMH Hx Cardiac Problems: Yes Hx Hypertension: Yes Hx Asthma: No Hx COPD: No Hx Diabetes: No Hx Cancer: No Hx Gastrointestinal Problems: No Hx Dialysis: No Hx Neurological Problems: Yes - anxiety Hx Cerebrovascular Accident: Yes - TIA (2013) Hx Transient Ischemic Attacks: No Hx Dementia: No Hx Alzheimer's Disease: No Hx Parkinson's Disease: No Hx Meningitis: No Hx Encephalitis: No Hx Seizures: No Hx Epilepsy: No Hx Multiple Sclerosis: Yes Hx Cerebral Palsy: No Hx Amyotrophic Lat Sclerosis: No Hx Guillian-[place] Syndrome: No Hx Paralysis: No Hx Peripheral Neuropathy: No Hx Spinal Cord Injury: No Hx Head Trauma: No Hx Traumatic Brain Injury: No Hx Memory Loss: No Hx Concentration Difficulty: No Hx Speech Problem: No Hx Tremors: No Hx Vertigo: No Hx Dizziness: Yes - SLIGHT Hx Syncope: Yes Hx Headaches: Yes - SOMETIMES Hx Aphasia: No Hx Dysphasia: No Hx Numbness: Yes - RIGHT HAND Hx Weakness: Yes - ALL OF THE BODY Hx Fatigue: Yes - SLIGHT Hx Neurologic Surgery: No Hx Brain Shunt: No Review of Systems All Other Systems: negative except mentioned in HPI Physical Exam Vital Signs Date Time Temp Pulse Resp B/P Pulse Ox O2 Delivery O2 Flow Rate FiO2 10/04/16 20:44 98.4 77 16 170/115 100 Room Air Sp02 EP Interpretation: reviewed, normal General Appearance: normal inspection, well appearing, no apparent distress, alert, GCS 15 Head: atraumatic ENT: normal ENT inspection, hearing grossly normal, normal voice Neck: normal inspection, full range of motion, supple, no bony tend Respiratory: normal inspection, lungs clear, normal breath sounds, no respiratory distress, no retraction, no wheezing Cardiovascular #1: regular rate, rhythm, no edema Gastrointestinal: normal inspection, normal bowel sounds, non tender, soft, no guarding, no hernia Genitourinary: no CVA tenderness Musculoskeletal: normal inspection, back normal, normal range of motion Neurologic: normal inspection, alert, oriented x3, responsive, ham sawyer III-XII nml as tested, speech normal Psychiatric: normal inspection, judgement/insight normal, mood/affect normal Skin: normal inspection, normal color, no rash Medical Decision Making Diagnostic Impression: Primary Impression: Chronic pain Additional Impressions: Opiate dependence Atypical chest pain ER Course Patient presented for chest pain. Differential diagnosis included but was not limited to acute coronary syndrome, pulmonary embolism, pneumonia, aortic dissection, shingles, pneumothorax, aortic dissection, esophageal rupture, pericarditis. Because of complexity of patient's case laboratory testing and imaging studies were ordered. The x-ray imaging of the chest one view interpreted by me showed normal cardiac size without evident infiltrate there is no evident pneumothorax. EKG interpreted by me showed normal sinus rhythm and nonspecific ST changes. Laboratory testing was unremarkable.The patient was given IM pain medications for his chronic pain. Patient was advised to followup with Dr. Dennis Hoffman for further evaluation and treatment. Labs Test 10/04/16 21:35 White Blood Count 8.4 K/UL (4.8-10.8) Red Blood Count 5.19 M/UL (4.70-6.10) Hemoglobin 17.4 G/DL (14.2-18.0) Hematocrit 48.1 % (42.0-52.0) Mean Corpuscular Volume 93 FL (80-99) Mean Corpuscular Hemoglobin 33.4 PG (27.0-31.0) Mean Corpuscular Hemoglobin Concent 36.1 G/DL (32.0-36.0) Red Cell Distribution Width 12.3 % (11.6-14.8) Platelet Count 220 K/UL (150-450) Mean Platelet Volume 7.1 FL (6.5-10.1) Neutrophils (%) (Auto) 52.9 % (45.0-75.0) Lymphocytes (%) (Auto) 37.8 % (20.0-45.0) Monocytes (%) (Auto) 6.9 % (1.0-10.0) Eosinophils (%) (Auto) 1.1 % (0.0-3.0) Basophils (%) (Auto) 1.3 % (0.0-2.0) Prothrombin Time 9.6 SEC (9.30-11.50) Prothromb Time International Ratio 0.9 (0.9-1.1) Activated Partial Thromboplast Time 26 SEC (23-33) Sodium Level 142 mEQ/L (135-145) Potassium Level 3.8 mEQ/L (3.4-4.9) Chloride Level 98 mEQ/L (98-107) Carbon Dioxide Level 28 mEQ/L (20-30) Anion Gap 16 (5-15) Blood Urea Nitrogen 27 mg/dL (7-23) Creatinine 1.3 mg/dL (0.7-1.2) Estimat Glomerular Filtration Rate > 60 mL/min (>60) Glucose Level 80 mg/dL (74-106) Calcium Level 10.2 mg/dL (8.6-10.2) Total Bilirubin 0.2 mg/dL (0.0-1.2) Aspartate Amino Transf (AST/SGOT) 22 U/L (5-40) Alanine Aminotransferase (ALT/SGPT) 29 U/L (3-41) Alkaline Phosphatase 100 U/L (40-129) Total Creatine Kinase 236 U/L (38-174) Creatine Kinase MB 4.7 ng/mL (< 6.7) Creatine Kinase MB Relative Index 1.9 Troponin I < 0.30 ng/mL (<=0.30) Pro-B-Type Natriuretic Peptide 16 pg/mL (0-125) Total Protein 7.4 g/dL (6.6-8.7) Albumin 4.9 g/dL (3.5-5.2) Globulin 2.5 g/dL Albumin/Globulin Ratio 1.9 (1.0-2.7) Chest X-Ray Diagnostic Results EP Interpretation: Yes Findings: no consolidation, no effusion, no pneumothorax, no acute cardiopulmonary disease Number of Views: 1 Last Vital Signs Date Time Temp Pulse Resp B/P Pulse Ox O2 Delivery O2 Flow Rate FiO2 10/04/16 20:44 98.4 77 16 170/115 100 Room Air Status: improved Disposition: HOME, SELF-CARE Condition: Stable Ramón Blackwell Oct 04, 2016 21:06
[2016-10-04] MEDS ORDERED: DuoNeb 0.5-3(2.5)mg/3ml neb HHN ONE (21:15)
[2016-10-04 21:30] VITALS: BP 170/115
[2016-10-04] MEDS: Cyclobenzaprine 10mg Tab ORAL ONE ×2 (21:40→21:46)
[2016-10-04] MEDS: Tylenol #3 tab (300mg/30mg) ORAL ONE ×2 (21:41→21:45)
[2016-10-04 21:53] LABS: BASOPHILS % (AUTO) 1.3 % (0.0-2.0); EOSINOPHILS % (AUTO) 1.1 % (0.0-3.0); LYMPHOCYTES % (AUTO) 37.8 % (20.0-45.0); MEAN CORPUSCULAR HEMOGLOBIN 33.4 PG (27.0-31.0); MEAN CORPUSCULAR HGB CONC 36.1 G/DL (32.0-36.0); MEAN CORPUSCULAR VOLUME 93 FL (80-99); MEAN PLATELET VOLUME 7.1 FL (6.5-10.1); MONOCYTES % (AUTO) 6.9 % (1.0-10.0); NEUTROPHILS % (AUTO) 52.9 % (45.0-75.0); PLATELET COUNT 220 K/UL (150-450); RED BLOOD COUNT 5.19 M/UL (4.70-6.10); RED CELL DISTRIBUTION WIDTH 12.3 % (11.6-14.8); WHITE BLOOD COUNT 8.4 K/UL (4.8-10.8)
[2016-10-04] MEDS ORDERED: HYDROmorphone 1mg/ml Carpuject IM ONE (22:00)
[2016-10-04 22:11] LABS: INR 0.9 (0.9-1.1); PROTHROMBIN TIME 9.6 SEC (9.30-11.50)
[2016-10-04 22:14] LABS: ALANINE AMINOTRANSFERASE 29 U/L (3-41); ALBUMIN/GLOBULIN RATIO 1.9 (1.0-2.7); ANION GAP 16 (5-15); ASPARTATE AMINO TRANSFERASE 22 U/L (5-40); CALCIUM 10.2 mg/dL (8.6-10.2); CARBON DIOXIDE 28 mEQ/L (20-30); CHLORIDE 98 mEQ/L (98-107); CREATININE 1.3 mg/dL (0.7-1.2); GLOMERULAR FILTRATION RATE > 60 mL/min (>60); HEMOLYSIS 25; POTASSIUM 3.8 mEQ/L (3.4-4.9); SODIUM 142 mEQ/L (135-145); TOTAL PROTEIN 7.4 g/dL (6.6-8.7); TROPONIN I < 0.30 ng/mL (<=0.30)
[2016-10-04 22:25] LABS: CKMB 4.7 ng/mL (< 6.7)
[2016-10-04 22:35] VITALS: BP 165/109
[2016-10-04 22:40] VITALS: BP 165/109
--- NOTE | 2016-10-05 10:42 | Diagnostic Imaging Report ---
Indication: Dyspnea Comparison: 08/29/16 A single view chest radiograph was obtained. Findings: Cardiomediastinal appearance is within normal limits for age. Pulmonary vascularity is appropriate. The diaphragmatic contour is smooth and costophrenic angles are sharp. No pleural effusions are identified. The bones are unremarkable. Impression: No acute findings
== END 2016-10-04 22:40 | disposition home or self-care (01) ==
LOC: EMR 21:16
DX: R07.89 Other chest pain (principal); G89.29 Other chronic pain; F11.20 Opioid dependence, uncomplicated; M25.552 Pain in left hip; Z88.8 Allergy status to other drugs, medicaments and biological substances; I10 Essential (primary) hypertension; Z86.73 Personal history of transient ischemic attack (TIA), and cerebral infarction without residual deficits
CPT/HCPCS: 36415; 71010; 80053; 82550; 82553; 83880; 84484; 85025; 85610; 85730; 93005; 96372; 99283; J1170; J7620

== ENCOUNTER 2016-10-05 06:36 | Inpatient (IN) | payer MEDICARE, OTHER ==
[~2016-10-05] VITALS: Ht 182.9 cm; Wt 101.2 kg
--- NOTE | 2016-10-05 07:14 | Emergency Room Report ---
History of Present Illness General Chief Complaint: Pain Source: Patient Present Illness HPI 51YOM walk-in for left lower back pain for 2 days. States fell off high bed, landed on left side. Also known "disc bulge" and MS, "But this is not my MS flare." States pain is sharp to lower left back, radiates to left foot. Decreased strength in lower left d/t pain. Denies fever/chills, urinary/fecal incontinence. Was Rx-ed [place] by PMD but "I dont want to just keep taking drugs." Was here earlier in evening for same complaint, received IM dilaudid. Came back because "pain is so bad." Per EMR, history of narcotic dependence. Allergies: Coded Allergies: KETOROLAC (Verified Allergy, Severe, Anaphylaxis, 06/19/15) HYDROCODONE (Verified Allergy, Intermediate, Itching, 06/19/15) Patient History Past Medical History: other - MS Past Surgical History: none Pertinent Family History: none Social History: Denies: alcohol use, drug use, smoking Immunizations: UTD Reviewed Nursing Documentation: PMH: Agreed, PSxH: Agreed Nursing Documentation-PMH Past Medical History: No History, Except For Hx Cardiac Problems: Yes Hx Hypertension: Yes Hx Asthma: No Hx COPD: No Hx Diabetes: No Hx Cancer: No Hx Gastrointestinal Problems: No Hx Dialysis: No Hx Neurological Problems: Yes - anxiety, herniated disc Hx Cerebrovascular Accident: Yes - TIA (2013) Hx Transient Ischemic Attacks: No Hx Dementia: No Hx Alzheimer's Disease: No Hx Parkinson's Disease: No Hx Meningitis: No Hx Encephalitis: No Hx Seizures: No Hx Epilepsy: No Hx Multiple Sclerosis: Yes Hx Cerebral Palsy: No Hx Amyotrophic Lat Sclerosis: No Hx Guillian-[place] Syndrome: No Hx Paralysis: No Hx Peripheral Neuropathy: No Hx Spinal Cord Injury: No Hx Head Trauma: No Hx Traumatic Brain Injury: No Hx Memory Loss: No Hx Concentration Difficulty: No Hx Speech Problem: No Hx Tremors: No Hx Vertigo: No Hx Dizziness: Yes - SLIGHT Hx Syncope: Yes Hx Headaches: Yes - SOMETIMES Hx Aphasia: No Hx Dysphasia: No Hx Numbness: Yes - RIGHT HAND Hx Weakness: Yes - ALL OF THE BODY Hx Fatigue: Yes - SLIGHT Hx Neurologic Surgery: No Hx Brain Shunt: No Review of Systems All Other Systems: negative except mentioned in HPI Physical Exam Vital Signs Date Time Temp Pulse Resp B/P Pulse Ox O2 Delivery O2 Flow Rate FiO2 10/05/16 06:43 97.7 82 16 131/92 100 Room Air Sp02 EP Interpretation: reviewed, normal General Appearance: normal inspection, well appearing, no apparent distress, alert, GCS 15, non-toxic Head: normocephalic, atraumatic Eyes: bilateral eye EOMI, bilateral eye PERRL ENT: normal ENT inspection, hearing grossly normal, normal voice Neck: normal inspection, full range of motion, supple, no bony tend Respiratory: normal inspection, lungs clear, normal breath sounds, no respiratory distress, no retraction, no wheezing Cardiovascular #1: regular rate, rhythm, no edema Gastrointestinal: normal inspection, normal bowel sounds, non tender, soft, no guarding, no hernia Genitourinary: no CVA tenderness Musculoskeletal: normal inspection, back normal, normal range of motion, Caroline' s Sign negative, other - Left lower extremity extension limited d/t pain. Neurologic: normal inspection, alert, oriented x3, responsive, yacht hand III-XII nml as tested, speech normal Psychiatric: normal inspection, judgement/insight normal, mood/affect normal Skin: normal inspection, normal color, no rash Lymphatic: normal inspection Medical Decision Making Diagnostic Impression: Primary Impression: Exacerbation of chronic back pain Additional Impressions: Opiate dependence Qualified Codes: F11.20 - Opioid dependence, uncomplicated Back pain Qualified Codes: M54.42 - Lumbago with sciatica, left side KHLOE (acute kidney injury) ER Course 51YOM with acute on chronic left LBP. VSS. Afebrile. Intractable to IM dilaudid on previous ED visit last night CT LS spine: Chronic arthrosis. No acute findings Labs significant only for mild KHLOE - IVF hydration given. Repeated requests for IV dilaudid in the ED. Strong concern for narcotic dependence although patient denies Endorsed to Dr Hoffman for intractable pain, KHLOE for med/surg admission at 10am EKG Diagnostic Results Rate: normal Rhythm: NSR ST Segments: no acute changes ASA given to the pt in ED: No Last Vital Signs Date Time Temp Pulse Resp B/P Pulse Ox O2 Delivery O2 Flow Rate FiO2 10/05/16 06:43 97.7 82 16 131/92 100 Room Air Status: improved Disposition: ADMITTED INPATIENT Condition: Serious DEBORA LAIRD M.D. Oct 05, 2016 07:14
[2016-10-05] MEDS ORDERED: HYDROmorphone 1 MG, DiphenhydrAMINE 25 MG in NS 55 ML IVPB ONE (07:30)
[2016-10-05 07:40] VITALS: BP 154/99
[2016-10-05] MEDS ORDERED: Zolpidem 5mg tab ORAL PRN (07:45)
[2016-10-05] MEDS ORDERED: DiphenhydrAMINE 50mg/ml Inj ONE (08:25)
[2016-10-05] MEDS ORDERED: HYDROmorphone 1mg/ml Carpuject ONE (08:25)
[2016-10-05 09:11] LABS: BASOPHILS % (AUTO) 1.5 % (0.0-2.0); EOSINOPHILS % (AUTO) 1.1 % (0.0-3.0); LYMPHOCYTES % (AUTO) 26.4 % (20.0-45.0); MEAN CORPUSCULAR HGB CONC 34.3 G/DL (32.0-36.0); MEAN CORPUSCULAR VOLUME 91 FL (80-99); MEAN PLATELET VOLUME 7.2 FL (6.5-10.1); MONOCYTES % (AUTO) 6.9 % (1.0-10.0); NEUTROPHILS % (AUTO) 64.1 % (45.0-75.0); PLATELET COUNT 243 K/UL (150-450); RED BLOOD COUNT 5.13 M/UL (4.70-6.10); RED CELL DISTRIBUTION WIDTH 12.2 % (11.6-14.8); WHITE BLOOD COUNT 6.7 K/UL (4.8-10.8)
[2016-10-05 09:15] LABS: TROPONIN I < 0.30 ng/mL (<=0.30)
[2016-10-05 09:19] LABS: ALANINE AMINOTRANSFERASE 24 U/L (3-41); ANION GAP 17 (5-15); ASPARTATE AMINO TRANSFERASE 17 U/L (5-40); CALCIUM 9.7 mg/dL (8.6-10.2); CARBON DIOXIDE 27 mEQ/L (20-30); CHLORIDE 98 mEQ/L (98-107); CREATININE 1.4 mg/dL (0.7-1.2); GLOMERULAR FILTRATION RATE > 60 mL/min (>60); HEMOLYSIS 6; POTASSIUM 3.8 mEQ/L (3.4-4.9); SODIUM 142 mEQ/L (135-145)
[2016-10-05 09:29] LABS: CKMB 3.5 ng/mL (< 6.7)
[2016-10-05] MEDS: Heparin 5000 units/ml inj SUBQ SCH ×2 (10:22→22:08)
--- NOTE | 2016-10-05 10:34 | Diagnostic Imaging Report ---
Indication: Chest Pain Comparison: October 04, 2016 A single view chest radiograph was obtained. Findings: Cardiomediastinal appearance is within normal limits for age. Pulmonary vascularity is appropriate. The diaphragmatic contour is smooth and costophrenic angles are sharp. No pleural effusions are identified. The bones are unremarkable. Impression: No acute findings
[2016-10-05 12:14] VITALS: BP 147/100
[2016-10-05] MEDS ORDERED: HYDROmorphone 1mg/ml Carpuject IVP ONE (13:45)
[2016-10-05] MEDS ORDERED: DiphenhydrAMINE 50mg/ml Inj IVP ONE (13:45)
--- NOTE | 2016-10-05 14:03 | Consultation ---
History of Present Illness General Date patient seen: Oct 05, 2016 Time patient seen: 13:00 Chief Complaint: Pain Referring physician: dr Hoffman Reason for Consultation: inpatietn management Present Illness HPI [id number] with hx of MS, herniated disc, TIA, HTN, intractable back pain presented for left lower back pain for 2 days. Stated that he fell off the high bed and landed on left side. Reported pain as sharp in the lower left back with radiation to left foot. Decreased strength in left lower extremity Denied fever/chills, urinary/fecal incontinence. Patient seen dr Scott earlier and got epidural injection for herniated disc, which helped initially, but after this fall pain returned patient is not taking any medication for MS, does not follow with neurologist for MS CT LS spine: Chronic arthrosis. No acute findings labs unremarkable patient was admitted for pain management and possible MS flare?c Allergies: Coded Allergies: KETOROLAC (Verified Allergy, Severe, Anaphylaxis, 06/19/15) HYDROCODONE (Verified Allergy, Intermediate, Itching, 06/19/15) Medication History Scheduled Aspirin* (Aspir 81*), 81 MG ORAL DAILY, (Reported) Clonidine Hcl* (Catapres*), 0.2 MG ORAL Q6HR, (Reported) Hydrochlorothiazide* (Hydrochlorothiazide*), 50 MG ORAL DAILY Miscellaneous Medications Ibuprofen (Ibuprofen), (Reported) Patient History History Provided By: Patient Healthcare decision maker Mrs. Granda Resuscitation status Full Code Advanced Directive on File will bring in Past Medical/Surgical History Past Medical/Surgical History: (1) Blunt trauma of multiple sites (2) Back sprain (3) Opiate dependence (4) Fall (5) Anxiety (6) Multiple sclerosis (7) Neuropathic pain (8) Acute on chronic renal insufficiency (9) Hypertension (10) Headache (11) Anxiety disorder (12) Narcotic dependence (13) Exacerbation of chronic back pain Review of Systems Constitutional: Reports: no symptoms Eye: Reports: no symptoms ENT: Reports: no symptoms Respiratory: Reports: no symptoms Cardiovascular: Reports: other - HTN Gastrointestinal: Reports: no symptoms Genitourinary: Reports: no symptoms Musculoskeletal: Reports: see HPI Skin: Reports: no symptoms Psychiatric: Reports: anxiety Neurological: Reports: other - TIA Endocrine: Reports: no symptoms Hematologic/Lymphatic: Reports: no symptoms Physical Exam General Appearance: no apparent distress, alert Lines, tubes and drains: peripheral HEENT: normocephalic, atraumatic, anicteric, mucous membranes moist, PERRL Neck: non-tender, supple Respiratory/Chest: lungs clear, normal breath sounds, no respiratory distress, no accessory muscle use Cardiovascular/Chest: normal peripheral pulses, normal rate, regular rhythm, no JVD Abdomen: normal bowel sounds, non tender, soft Extremities: normal range of motion, non-tender, normal capillary refill, other - positive straight leg test left Skin Exam: normal pigmentation, warm/dry Neurologic: abnormal gait - with cane , alert, oriented x 3, responsive Musculoskeletal: normal muscle bulk Last 24 Hour Vital Signs Date Time Temp Pulse Resp B/P Pulse Ox O2 Delivery O2 Flow Rate FiO2 10/05/16 12:14 97.0 84 20 147/100 99 Room Air 10/05/16 10:51 94 16 143/97 99 Room Air 10/05/16 07:40 72 15 Room Air 10/05/16 07:40 98.2 72 15 154/99 100 Room Air 10/05/16 06:43 97.7 82 16 131/92 100 Room Air Intake and Output 10/04/16 10/05/16 19:00 07:00 # Bowel Movements 1 Laboratory Tests Test 10/05/16 08:20 White Blood Count 6.7 K/UL (4.8-10.8) Red Blood Count 5.13 M/UL (4.70-6.10) Hemoglobin 15.9 G/DL (14.2-18.0) Hematocrit 46.4 % (42.0-52.0) Mean Corpuscular Volume 91 FL (80-99) Mean Corpuscular Hemoglobin 31.0 PG (27.0-31.0) Mean Corpuscular Hemoglobin Concent 34.3 G/DL (32.0-36.0) Red Cell Distribution Width 12.2 % (11.6-14.8) Platelet Count 243 K/UL (150-450) Mean Platelet Volume 7.2 FL (6.5-10.1) Neutrophils (%) (Auto) 64.1 % (45.0-75.0) Lymphocytes (%) (Auto) 26.4 % (20.0-45.0) Monocytes (%) (Auto) 6.9 % (1.0-10.0) Eosinophils (%) (Auto) 1.1 % (0.0-3.0) Basophils (%) (Auto) 1.5 % (0.0-2.0) Sodium Level 142 mEQ/L (135-145) Potassium Level 3.8 mEQ/L (3.4-4.9) Chloride Level 98 mEQ/L (98-107) Carbon Dioxide Level 27 mEQ/L (20-30) Anion Gap 17 (5-15) H Blood Urea Nitrogen 27 mg/dL (7-23) H Creatinine 1.4 mg/dL (0.7-1.2) H Estimat Glomerular Filtration Rate > 60 mL/min (>60) Glucose Level 126 mg/dL (74-106) H Calcium Level 9.7 mg/dL (8.6-10.2) Total Bilirubin 0.3 mg/dL (0.0-1.2) Aspartate Amino Transf (AST/SGOT) 17 U/L (5-40) Alanine Aminotransferase (ALT/SGPT) 24 U/L (3-41) Alkaline Phosphatase 88 U/L (40-129) Total Creatine Kinase 178 U/L (38-174) H Creatine Kinase MB 3.5 ng/mL (< 6.7) Creatine Kinase MB Relative Index 1.9 Troponin I < 0.30 ng/mL (<=0.30) Total Protein 6.0 g/dL (6.6-8.7) L Albumin 4.5 g/dL (3.5-5.2) Globulin 1.5 g/dL Albumin/Globulin Ratio 3.0 (1.0-2.7) H Height (Feet): 6 Height (Inches): 1.00 Weight (Pounds): 223 Medications Current Medications Medications (Trade) Dose Ordered Sig/Jessica Route PRN Reason Start Time Stop Time Status Last Admin Dose Admin Acetaminophen (Tylenol) 650 mg Q4H PRN ORAL fever 10/05/16 07:45 11/04/16 07:44 Heparin Sodium (Porcine) (Heparin 5000 units/ml) 5,000 units EVERY 12 HOURS SUBQ 10/05/16 10:00 11/04/16 09:59 10/05/16 10:22 Hydromorphone HCl (Dilaudid) 2 mg Q4H PRN IVP For Pain 10/05/16 14:00 10/12/16 13:59 Ondansetron HCl (Zofran) 4 mg Q6H PRN IVP Nausea & Vomiting 10/05/16 07:45 11/04/16 07:44 Zolpidem Tartrate (Ambien) 5 mg HSPRN PRN ORAL Insomnia 10/05/16 07:45 11/04/16 07:44 Assessment/Plan Assessment/Plan ASSESSMENT s/p mechanical fall herniated disc hx of MS possible MS flare HTN urgency KHLOE opiate dependency PLAN OF CARE MS floor CT LS spine: Chronic arthrosis. No acute findings pain management pain specialist consult -as per PMD fall precautions PT/OT s/p 1 L IVF monitor renal parameters , lytes, avoid nephrotoxic BP management , add low dose Atenolol and prn Hydralazine, optimize as needed neuro eval will need outpatient fup for routine MS management DVT prophylaxis bowel regimen case discussed and evaluated by supervising physician Reena Vanegas NP ([facility]) Oct 05, 2016 14:03
[2016-10-05 15:58] VITALS: BP 149/103
--- NOTE | 2016-10-05 16:40 | Neurology Progress Note ---
Objective Physical Exam Last Vital Signs Date Time Temp Pulse Resp B/P Pulse Ox O2 Delivery O2 Flow Rate FiO2 10/05/16 15:58 97.9 82 21 149/103 97 Room Air Laboratory Tests Test 10/05/16 08:20 White Blood Count 6.7 K/UL (4.8-10.8) Red Blood Count 5.13 M/UL (4.70-6.10) Hemoglobin 15.9 G/DL (14.2-18.0) Hematocrit 46.4 % (42.0-52.0) Mean Corpuscular Volume 91 FL (80-99) Mean Corpuscular Hemoglobin 31.0 PG (27.0-31.0) Mean Corpuscular Hemoglobin Concent 34.3 G/DL (32.0-36.0) Red Cell Distribution Width 12.2 % (11.6-14.8) Platelet Count 243 K/UL (150-450) Mean Platelet Volume 7.2 FL (6.5-10.1) Neutrophils (%) (Auto) 64.1 % (45.0-75.0) Lymphocytes (%) (Auto) 26.4 % (20.0-45.0) Monocytes (%) (Auto) 6.9 % (1.0-10.0) Eosinophils (%) (Auto) 1.1 % (0.0-3.0) Basophils (%) (Auto) 1.5 % (0.0-2.0) Sodium Level 142 mEQ/L (135-145) Potassium Level 3.8 mEQ/L (3.4-4.9) Chloride Level 98 mEQ/L (98-107) Carbon Dioxide Level 27 mEQ/L (20-30) Anion Gap 17 (5-15) H Blood Urea Nitrogen 27 mg/dL (7-23) H Creatinine 1.4 mg/dL (0.7-1.2) H Estimat Glomerular Filtration Rate > 60 mL/min (>60) Glucose Level 126 mg/dL (74-106) H Calcium Level 9.7 mg/dL (8.6-10.2) Total Bilirubin 0.3 mg/dL (0.0-1.2) Aspartate Amino Transf (AST/SGOT) 17 U/L (5-40) Alanine Aminotransferase (ALT/SGPT) 24 U/L (3-41) Alkaline Phosphatase 88 U/L (40-129) Total Creatine Kinase 178 U/L (38-174) H Creatine Kinase MB 3.5 ng/mL (< 6.7) Creatine Kinase MB Relative Index 1.9 Troponin I < 0.30 ng/mL (<=0.30) Total Protein 6.0 g/dL (6.6-8.7) L Albumin 4.5 g/dL (3.5-5.2) Globulin 1.5 g/dL Albumin/Globulin Ratio 3.0 (1.0-2.7) H Impression/Recommendations Problems: (1) Multiple sclerosis, relapsing-remitting (2) Anxiety (3) Opiate dependence (4) Exacerbation of chronic back pain (5) Lumbar degenerative disc disease Status: unchanged Recommendations #[id number] MARKOS CROOKS Oct 05, 2016 16:39
[2016-10-05 20:00] VITALS: BP 167/115
--- NOTE | 2016-10-05 22:00 | History and Physical Report ---
DATE OF ADMISSION: 10/05/2016 CONSULTANTS: 1. Ruperto Ghosh M.D. 2. Dayo Conrad M.D. 3. Jassi Scott M.D. 4. Fam Villavicencio M.D. 5. Fletcher Scott M.D. CHIEF COMPLAINT: Fall, low back pain, history of MS, and hypertension. BRIEF HISTORY: This is a 51-year-old male, who came to my office yesterday. Apparently, he went home, was getting out off of bed, twisted his back while getting off, and fell on the ground and sustained low back pain. He came to [place], diagnosed with the above, and being admitted to [facility] for further treatment. Currently, calm, in the ER gurney, severe back pain, 9/10, and no complaints. PAST MEDICAL HISTORY: Includes multiple sclerosis, low back pain, hypertension, and renal insufficiency. PAST SURGICAL HISTORY: None. MEDICATIONS: Heparin, IV fluids, Zofran, Ambien, and Dilaudid x1 given in the ER. ALLERGIES: Hydrocodone and ketorolac. SOCIAL HISTORY: No smoking. No alcohol. No intravenous drug abuse. FAMILY HISTORY: Noncontributory. REVIEW OF SYSTEMS: No chest pain or shortness of breath. No nausea, vomiting, or diarrhea. PHYSICAL EXAMINATION: GENERAL: Calm in bed, oriented x3, and in slight distress secondary to pain. VITAL SIGNS: Temperature is 98 degrees, pulse 72, respirations 15, and blood pressure was 131/92, now it is 154/99. CARDIOVASCULAR: No murmur. LUNGS: Distant and clear. ABDOMEN: Bowel sounds positive. Nontender. Nondistended. EXTREMITIES: No cyanosis or clubbing. NEUROLOGIC: Cranial nerves II through XII are grossly intact. Deep tendon reflexes 2+. Motor strength 4/5. Lower extremity weakness slightly noted. LABORATORY DATA: CBC is normal. BMP showed BUN and creatinine 27 and 1.4. Glucose 126. CK 178. ASSESSMENT: 1. Low back pain. 2. History of multiple sclerosis. 3. Hypertension. 4. Renal insufficiency. PLAN: 1. Continue premedications. 2. Pain control. 3. OT, PT, and dietary followup. 4. CBC and BMP in the morning. 5. Dr. Conrad, Dr. Scott, Dr. Ghosh, Dr. Villavicencio, and Dr. Soctt to consult. Dennis Hoffman D.O. DR: [place] JOB#: [id number] CC:
[2016-10-05] MEDS: HydrALAZINE 10mg Tab ORAL PRN (22:06)
[2016-10-05] MEDS: DiphenhydrAMINE 50mg/ml Inj IVP PRN (22:57)
[2016-10-05] MEDS ORDERED: Miralax 17gm pkt ORAL PRN (23:15)
[2016-10-06] VITALS: BP 165/122
--- NOTE | 2016-10-06 03:00 | Consultation ---
DATE OF CONSULTATION: 10/05/2016 NEUROLOGICAL CONSULTATION CONSULTING PHYSICIAN: Fletcher Scott M.D. REQUESTING PHYSICIAN: Dennis Hoffman D.O. HISTORY OF PRESENT ILLNESS: This is a 51-year-old man seen in neurological consultation to evaluate an intractable low back pain. According to the patient, he was diagnosed with multiple sclerosis in the year 2002. He subsequently developed weakness in his left lower extremity, some gait instability, and occasional shooting pains in his left lower extremity. For the last five years, he has increasing difficulties with his low back, developing quite severe pain, required the use of opiates, and with multiple hospitalization to this facility. He had two epidural blocks with no substantial improvement. Few days ago, he slipped and fell reinjuring his low back. Overall, he is off balance and tend to fall down. The patient came to emergency room stating that he fell off a high bed landing on the left side. He developed sharp pains in the low back on the left side radiating to left foot. The patient was initially treated with [place], but this was not affective. The patient came to this facility where he received IM Dilaudid, he improved, went home, but then came back because, "pain progressed." Following admission vital signs were stable. Blood pressure 130/92. He was afebrile. Review of previous records included an MRI of the brain in 2015 revealing extensive deep white matter changes compatible with chronic multiple sclerosis. CAT scan of the lumbosacral spine previously revealed a multilevel mild degenerative joint disease. There was no evidence of cord compression. EKG with shows normal sinus rhythm. Laboratory work was obtained. Normal CBC. Normal chemistry panel except BUN of 27 and creatinine 1.4. Blood sugar 126. CPK 178 with CK-MB 1.9. PAST MEDICAL HISTORY: The patient has a history of multiple sclerosis, now in remission, hypertension, and anxiety disorder. MEDICATIONS: His treatment at home included aspirin, clonidine, hydrochlorothiazide, ibuprofen, and when needed Ativan. Following current admission, he remained on atenolol, Benadryl, alprazolam, Dilaudid as needed, Zofran, and zolpidem. ALLERGIES: Ketorolac and hydrocodone. FAMILY HISTORY: Noncontributory. REVIEW OF SYSTEMS: Severe low back pain radiating to the left lower extremity and anxiety, but denies chest pain or palpitations. No respiratory problems. Denies abdominal pain or discomfort. No urine or bowel incontinence. PHYSICAL EXAMINATION: GENERAL: This is a well-developed and well-nourished man, in no acute distress. VITAL SIGNS: Stable. MUSCULOSKELETAL EXAMINATION: Remarkable for acute tenderness on palpation in the lumbar spine. Straight leg raising test, 75-degree on the left. Peripheral pulses 1+ and symmetric. MENTAL STATUS: Alert and oriented x3 with no evidence of aphasia or apraxia. Cognitive function normal. Emotion labile, tense and anxious. CRANIAL NERVE II: Pupils both responding to light and accommodation. Extraocular movement intact. No nystagmus. CRANIAL NERVE V: Normal corneal responses. CRANIAL NERVE VII: No facial asymmetry. CRANIAL NERVE VIII: Grossly normal hearing. CRANIAL NERVES IX THROUGH XII: Tongue is in midline. Symmetric palate elevation. MOTOR EXAMINATION: Normal muscle tone and strength 5/5 in all extremities except 4/5 in the left lower extremity. Slightly increased muscle tone in the left lower extremity. Deep tendon reflexes 2+ bilaterally and on in the left. SENSORY EXAMINATION: Normal to pinprick and light touch. IMPRESSION: 1. Chronic low back pain, opiate dependent with exacerbation. 2. Lumbar discogenic disease. 3. Multiple sclerosis in remission. 4. Anxiety syndrome. 5. Hypertension. RECOMMENDATION: The patient will need a pain management, orthopedic re-evaluation, and MRI of the lumbosacral spine to help us in further assessment of this patient. As far as his multiple sclerosis, this remained unchanged. The patient is not on any neuromodulators. History of underlying anxiety may relate to chronic pain, consider adding antidepressants. Thank you for allowing me to see this interesting patient in neurological consultation. Fletcher Scott M.D. DR: NICHOLE JOB#: [id number] CC:
[2016-10-06 04:00] VITALS: BP 184/118
[2016-10-06] MEDS: HydrALAZINE 10mg Tab ORAL PRN (04:06)
[2016-10-06] MEDS: DiphenhydrAMINE 50mg/ml Inj IVP PRN ×4 (05:13→23:57)
[2016-10-06 07:29] LABS: EOSINOPHILS % (AUTO) 2.5 % (0.0-3.0); LYMPHOCYTES % (AUTO) 36.4 % (20.0-45.0); MEAN CORPUSCULAR HEMOGLOBIN 31.6 PG (27.0-31.0); MEAN CORPUSCULAR HGB CONC 34.5 G/DL (32.0-36.0); MEAN CORPUSCULAR VOLUME 92 FL (80-99); MEAN PLATELET VOLUME 7.1 FL (6.5-10.1); MONOCYTES % (AUTO) 7.3 % (1.0-10.0); NEUTROPHILS % (AUTO) 52.8 % (45.0-75.0); PLATELET COUNT 220 K/UL (150-450); RED BLOOD COUNT 4.51 M/UL (4.70-6.10); RED CELL DISTRIBUTION WIDTH 12.5 % (11.6-14.8); WHITE BLOOD COUNT 6.9 K/UL (4.8-10.8)
[2016-10-06 07:45] LABS: ANION GAP 14 (5-15); CALCIUM 8.9 mg/dL (8.6-10.2); CARBON DIOXIDE 26 mEQ/L (20-30); CHLORIDE 100 mEQ/L (98-107); CREATININE 1.3 mg/dL (0.7-1.2); GLOMERULAR FILTRATION RATE > 60 mL/min (>60); HEMOLYSIS 4; POTASSIUM 3.7 mEQ/L (3.4-4.9); SODIUM 140 mEQ/L (135-145)
[2016-10-06 08:00] VITALS: BP 162/107
[2016-10-06] MEDS: Heparin 5000 units/ml inj SUBQ SCH ×2 (08:11→20:44)
--- NOTE | 2016-10-06 08:28 | Diagnostic Imaging Report ---
Indication: Back pain Technique: Continuous helical transaxial imaging of the lumbar spine was obtained from the lung bases to the pubic symphysis. No IV contrast was administered. Coronal 2-D reformats were also obtained. Study obtained in a Siemens sensation [address] Total Dose length Product (DLP): [address] Dose Index Volume (CTDIvol): 18 mGy Comparison: None Findings: There is no evidence of an acute fracture or malalignment. Height and configuration of the vertebral bodies and intervertebral discs are within normal limits. There is no soft tissue swelling. Lower lumbar facets demonstrate sclerosis and mild hypertrophy consistent with osteoarthrosis. There is minimal loss of height and anterior wedging of the T12 vertebra this is not an acute injury. Impression: No acute injury identified. Minimal anterior wedging of the T12 vertebra likely due to an old injury or degenerative in nature. Lower lumbar facet arthropathy. The CT scanner at [facility] is accredited by the [employer] and the scans are performed using dose optimization techniques as appropriate to a performed exam including Automatic Exposure control.
--- NOTE | 2016-10-06 08:33 | General Progress Note ---
Assessment/Plan Problem List: (1) Neck pain, acute ICD Codes: M54.2 - Cervicalgia SNOMED: 02491573 (2) Opiate dependence ICD Codes: F11.20 - Opioid dependence, uncomplicated SNOMED: 79186249 (3) Back sprain ICD Codes: S23.9XXA - Sprain of unspecified parts of thorax, initial encounter SNOMED: 357222272 (4) HTN (hypertension) ICD Codes: I10 - Essential (primary) hypertension SNOMED: 25582559 (5) Neuropathic pain ICD Codes: M79.2 - Neuralgia and neuritis, unspecified SNOMED: 058089548 (6) Multiple sclerosis (7) KHLOE (acute kidney injury) ICD Codes: N17.9 - Acute kidney failure, unspecified SNOMED: 06745387 Status: stable, progressing, tolerating diet Assessment/Plan ot pt diet pain control cbc bmp am Subjective Constitutional: Reports: weakness Allergies: Coded Allergies: KETOROLAC (Verified Allergy, Severe, Anaphylaxis, 06/19/15) HYDROCODONE (Verified Allergy, Intermediate, Itching, 06/19/15) All Systems: reviewed and negative except above Subjective sl lbp Objective Last 24 Hour Vital Signs Date Time Temp Pulse Resp B/P Pulse Ox O2 Delivery O2 Flow Rate FiO2 10/06/16 08:28 165/122 10/06/16 08:08 92 165/122 10/06/16 08:00 97.3 89 20 162/107 98 Room Air 10/06/16 04:06 165/122 10/06/16 04:00 98.3 92 18 184/118 96 Room Air 10/06/16 00:00 97.7 82 20 165/122 97 Room Air 10/06/16 00:00 97.7 82 20 165/122 97 Room Air 10/05/16 22:06 167/115 10/05/16 20:00 97.4 89 18 167/115 91 Room Air 10/05/16 19:19 97.9 10/05/16 15:58 97.9 82 21 149/103 97 Room Air 10/05/16 12:14 97.0 84 20 147/100 99 Room Air 10/05/16 10:51 94 16 143/97 99 Room Air Intake and Output 10/05/16 10/06/16 19:00 07:00 Intake Total 1895 ml 400 ml Output Total 300 ml Balance 1595 ml 400 ml Intake Oral 600 ml 400 ml IV Total 1055 ml Tube Feeding 240 ml Output Urine Total 300 ml # Voids 1 1 Laboratory Tests 10/06/16 05:55: White Blood Count 6.9, Red Blood Count 4.51L, Hemoglobin 14.3, Hematocrit 41.4L , Mean Corpuscular Volume 92, Mean Corpuscular Hemoglobin 31.6H, Mean Corpuscular Hemoglobin Concent 34.5, Red Cell Distribution Width 12.5, Platelet Count 220, Mean Platelet Volume 7.1, Neutrophils (%) (Auto) 52.8, Lymphocytes (% ) (Auto) 36.4, Monocytes (%) (Auto) 7.3, Eosinophils (%) (Auto) 2.5, Basophils ( %) (Auto) 1.0, Sodium Level 140, Potassium Level 3.7, Chloride Level 100, Carbon Dioxide Level 26, Anion Gap 14, Blood Urea Nitrogen 22, Creatinine 1.3H, Estimat Glomerular Filtration Rate > 60, Glucose Level 115H, Calcium Level 8.9 Height (Feet): 6 Height (Inches): 1.00 Weight (Pounds): 223 General Appearance: alert EENT: normal ENT inspection Neck: normal alignment Cardiovascular: normal peripheral pulses, normal rate, regular rhythm Respiratory/Chest: chest wall non-tender, lungs clear, normal breath sounds Abdomen: normal bowel sounds, non tender, soft Extremities: normal inspection Edema: no edema noted Arm (L), no edema noted Arm (R), no edema noted Leg (L), no edema noted Leg (R), no edema noted Pedal (L), no edema noted Pedal (R), no edema noted Generalized Neurologic: responsive, motor weakness Skin: normal pigmentation, warm/dry BARBARA RAGLAND Oct 06, 2016 08:33
[2016-10-06] MEDS ORDERED: Atenolol 25mg tab ORAL SCH (09:00)
--- NOTE | 2016-10-06 10:25 | General Progress Note ---
Assessment/Plan Assessment/Plan (1) Multiple Sclerosis (2) Neuropathic pain (3) Cervical DDD (4) Cervical spondylosis (5) Lumbar DDD (6) Lumbar spondylosis (7) Narcotic Dependency (8) Lumbar sprain Patient will be continued on Dilaudid 3mg IVP Q4H PRN severe pain. We will order MRI of L spine to asses for any further pathology in the lumbar spine. Pt was d/w Dr. Scott and he concurred. Subjective Date patient seen: Oct 06, 2016 Time patient seen: 09:00 - am Allergies: Coded Allergies: KETOROLAC (Verified Allergy, Severe, Anaphylaxis, 06/19/15) HYDROCODONE (Verified Allergy, Intermediate, Itching, 06/19/15) Subjective Constitutional: Reports: weakness, Denies: chills, diaphoresis, fever, malaise , no symptoms, other HEENT: Denies: blurred vision, double vision, ear discharge, ear pain, eye pain , mouth pain, mouth swelling, no symptoms, nose congestion, nose pain, other, tearing, throat pain, throat swelling Cardiovascular: Denies: chest pain, edema, irregular heart rate, lightheadedness, no symptoms, other, palpitations, syncope Respiratory: Denies: SOB at rest, SOB with excertion, cough, no symptoms, orthopnea, other, shortness of breath, sputum, stridor, wheezing Gastrointestinal/Abdominal: Denies: abdomen distended, abdominal pain, black stools, blood in stool, constipated, diarrhea, difficulty swallowing, nausea, no symptoms, other, poor appetite, poor fluid intake, rectal bleeding, tarry stools, vomiting Genitourinary: Denies: burning, discharge, flank pain, frequency, hematuria, incontinence, no symptoms, other, pain, urgency Neurologic/Psychiatric: Reports: weakness, Denies: anxiety, depressed, emotional problems, headache, no symptoms, numbness, other, paresthesia, pre- existing deficit, seizure, tingling, tremors Endocrine: Denies: excessive sweating, flushing, increased hunger, increased thirst, increased urine, intolerance to cold, intolerance to heat, no symptoms, other, unexplained weight gain, unexplained weight loss Hematologic/Lymphatic: Denies: anemia, easy bleeding, easy bruising, no symptoms, other Subjective The pt is a known patient from prior admissions and has been admitted under the care of Dr. Frank for pain which started after a fall out of his bed. At this time he is on Dilaudid 3mg IVP Q4H for severe pain. CT was reviewed with the patient however he continues to c/o severe pain. Objective Last 24 Hour Vital Signs Date Time Temp Pulse Resp B/P Pulse Ox O2 Delivery O2 Flow Rate FiO2 10/06/16 08:40 98.3 10/06/16 08:28 165/122 10/06/16 08:08 92 165/122 10/06/16 08:00 97.3 89 20 162/107 98 Room Air 10/06/16 04:06 165/122 10/06/16 04:00 98.3 92 18 184/118 96 Room Air 10/06/16 00:00 97.7 82 20 165/122 97 Room Air 10/06/16 00:00 97.7 82 20 165/122 97 Room Air 10/05/16 22:06 167/115 10/05/16 20:00 97.4 89 18 167/115 91 Room Air 10/05/16 19:19 97.9 10/05/16 15:58 97.9 82 21 149/103 97 Room Air 10/05/16 12:14 97.0 84 20 147/100 99 Room Air 10/05/16 10:51 94 16 143/97 99 Room Air Intake and Output 10/05/16 10/06/16 19:00 07:00 Intake Total 1895 ml 400 ml Output Total 300 ml Balance 1595 ml 400 ml Intake Oral 600 ml 400 ml IV Total 1055 ml Tube Feeding 240 ml Output Urine Total 300 ml # Voids 1 1 Laboratory Tests 10/06/16 05:55: White Blood Count 6.9, Red Blood Count 4.51L, Hemoglobin 14.3, Hematocrit 41.4L , Mean Corpuscular Volume 92, Mean Corpuscular Hemoglobin 31.6H, Mean Corpuscular Hemoglobin Concent 34.5, Red Cell Distribution Width 12.5, Platelet Count 220, Mean Platelet Volume 7.1, Neutrophils (%) (Auto) 52.8, Lymphocytes (% ) (Auto) 36.4, Monocytes (%) (Auto) 7.3, Eosinophils (%) (Auto) 2.5, Basophils ( %) (Auto) 1.0, Sodium Level 140, Potassium Level 3.7, Chloride Level 100, Carbon Dioxide Level 26, Anion Gap 14, Blood Urea Nitrogen 22, Creatinine 1.3H, Estimat Glomerular Filtration Rate > 60, Glucose Level 115H, Calcium Level 8.9 Height (Feet): 6 Height (Inches): 1.00 Weight (Pounds): 223 Objective General Appearance: no apparent distress, alert EENT: PERRL/EOMI, normal ENT inspection Neck: non-tender, normal alignment Cardiovascular: normal peripheral pulses, normal rate, regular rhythm Respiratory/Chest: lungs clear, normal breath sounds Abdomen: non tender, soft Extremities: non-tender Edema: no edema noted Arm (L), no edema noted Arm (R), no edema noted Leg (L), no edema noted Leg (R), no edema noted Pedal (L), no edema noted Pedal (R), no edema noted Generalized Neurologic: alert, oriented x 3 Skin: warm/dry Procedure: CT L Spine no Contrast Impression: No acute injury identified. Minimal anterior wedging of the T12 vertebra likely due to an old injury or degenerative in nature. Lower lumbar facet arthropathy. MAYCOL WILEY Oct 06, 2016 10:25
[2016-10-06 12:00] VITALS: BP 147/110
--- NOTE | 2016-10-06 13:42 | Pulmonology Progress Note ---
Assessment/Plan Assessment/Plan ASSESSMENT s/p mechanical fall herniated disc MS ( in remission) HTN urgency KHLOE opiate dependency neuropathic pain Cervical DDD Cervical spondylosis Lumbar DDD Lumbar spondylosis Lumbar sprain PLAN OF CARE MS floor CT LS spine: Chronic arthrosis. No acute findings pain management pain specialist consult appreciated MRI L S spine in am fall precautions PT/OT s/p 1 L IVF monitor renal parameters , lytes, avoid nephrotoxic creat down to 1.3 BP management , low dose Atenolol and prn Hydralazine, optimize as needed neuro eval appreciated per neuro MS in remission per neuro patient needs ortho surgery re-eval and pain management DVT prophylaxis bowel regimen case discussed and evaluated by supervising physician Subjective Allergies: Coded Allergies: KETOROLAC (Verified Allergy, Severe, Anaphylaxis, 06/19/15) HYDROCODONE (Verified Allergy, Intermediate, Itching, 06/19/15) Objective Last 24 Hour Vital Signs Date Time Temp Pulse Resp B/P Pulse Ox O2 Delivery O2 Flow Rate FiO2 10/06/16 08:40 98.3 10/06/16 08:28 165/122 10/06/16 08:08 92 165/122 10/06/16 08:00 97.3 89 20 162/107 98 Room Air 10/06/16 04:06 165/122 10/06/16 04:00 98.3 92 18 184/118 96 Room Air 10/06/16 00:00 97.7 82 20 165/122 97 Room Air 10/06/16 00:00 97.7 82 20 165/122 97 Room Air 10/05/16 22:06 167/115 10/05/16 20:00 97.4 89 18 167/115 91 Room Air 10/05/16 19:19 97.9 10/05/16 15:58 97.9 82 21 149/103 97 Room Air Intake and Output 10/05/16 10/06/16 19:00 07:00 Intake Total 1895 ml 400 ml Output Total 300 ml Balance 1595 ml 400 ml Intake Oral 600 ml 400 ml IV Total 1055 ml Tube Feeding 240 ml Output Urine Total 300 ml # Voids 1 1 Objective General Appearance: no apparent distress, alert Lines, tubes and drains: peripheral HEENT: normocephalic, atraumatic, anicteric, mucous membranes moist, PERRL Neck: non-tender, supple Respiratory/Chest: lungs clear, normal breath sounds, no respiratory distress, no accessory muscle use Cardiovascular/Chest: normal peripheral pulses, normal rate, regular rhythm, no JVD Abdomen: normal bowel sounds, non tender, soft Extremities: normal range of motion, non-tender, normal capillary refill, other - positive straight leg test left Skin Exam: normal pigmentation, warm/dry Neurologic: abnormal gait - with cane , alert, oriented x 3, responsive Musculoskeletal: normal muscle bulk Laboratory Tests 10/06/16 05:55: White Blood Count 6.9, Red Blood Count 4.51L, Hemoglobin 14.3, Hematocrit 41.4L , Mean Corpuscular Volume 92, Mean Corpuscular Hemoglobin 31.6H, Mean Corpuscular Hemoglobin Concent 34.5, Red Cell Distribution Width 12.5, Platelet Count 220, Mean Platelet Volume 7.1, Neutrophils (%) (Auto) 52.8, Lymphocytes (% ) (Auto) 36.4, Monocytes (%) (Auto) 7.3, Eosinophils (%) (Auto) 2.5, Basophils ( %) (Auto) 1.0, Sodium Level 140, Potassium Level 3.7, Chloride Level 100, Carbon Dioxide Level 26, Anion Gap 14, Blood Urea Nitrogen 22, Creatinine 1.3H, Estimat Glomerular Filtration Rate > 60, Glucose Level 115H, Calcium Level 8.9 Current Medications Medications (Trade) Dose Ordered Sig/Jessica Route PRN Reason Start Time Stop Time Status Last Admin Dose Admin Acetaminophen (Tylenol) 650 mg Q4H PRN ORAL fever 10/05/16 07:45 11/04/16 07:44 Atenolol (Tenormin) 25 mg DAILY ORAL 10/06/16 09:00 11/05/16 08:59 10/06/16 08:08 Clonidine HCl (Catapres) 0.1 mg Q4H PRN ORAL For SPB>160 10/06/16 07:00 11/05/16 06:59 10/06/16 08:28 Diphenhydramine HCl (Benadryl) 25 mg Q6H PRN IVP Itching 10/05/16 15:00 11/04/16 14:59 10/06/16 11:20 Duloxetine HCl (Cymbalta) 40 mg DAILY ORAL 10/05/16 17:00 11/04/16 16:59 10/06/16 08:09 Gabapentin (Neurontin) 300 mg THREE TIMES A DAY ORAL 10/05/16 18:00 11/04/16 17:59 10/06/16 08:08 Heparin Sodium (Porcine) (Heparin 5000 units/ml) 5,000 units EVERY 12 HOURS SUBQ 10/05/16 10:00 11/04/16 09:59 10/06/16 08:11 Hydromorphone HCl (Dilaudid) 3 mg Q3H PRN IVP For Pain 10/06/16 07:00 10/13/16 06:59 10/06/16 11:21 Ondansetron HCl (Zofran) 4 mg Q6H PRN IVP Nausea & Vomiting 10/05/16 07:45 11/04/16 07:44 Polyethylene Glycol (Miralax) 17 gm DAILY PRN ORAL Constipation 10/05/16 23:15 11/04/16 23:14 10/05/16 23:54 Zolpidem Tartrate (Ambien) 5 mg HSPRN PRN ORAL Insomnia 10/05/16 07:45 11/04/16 07:44 Reena Vanegas NP ([facility]) Oct 06, 2016 13:42
[2016-10-06 16:00] VITALS: BP 157/107
[2016-10-06 20:21] VITALS: BP_SYST 109; BP_SYST 159; BP_DIAS 47; BP_DIAS 97
[2016-10-07] VITALS (9 sets, daily range): BP systolic 135–182; BP diastolic 76–109
[2016-10-07] MEDS: DiphenhydrAMINE 50mg/ml Inj IVP PRN ×3 (06:02→19:04)
[2016-10-07 07:08] LABS: BASOPHILS % (AUTO) 1.6 % (0.0-2.0); LYMPHOCYTES % (AUTO) 31.8 % (20.0-45.0); MEAN CORPUSCULAR HEMOGLOBIN 31.6 PG (27.0-31.0); MEAN CORPUSCULAR HGB CONC 34.2 G/DL (32.0-36.0); MEAN CORPUSCULAR VOLUME 93 FL (80-99); MEAN PLATELET VOLUME 8.7 FL (6.5-10.1); MONOCYTES % (AUTO) 7.5 % (1.0-10.0); NEUTROPHILS % (AUTO) 56.1 % (45.0-75.0); PLATELET COUNT 230 K/UL (150-450); RED BLOOD COUNT 4.59 M/UL (4.70-6.10); RED CELL DISTRIBUTION WIDTH 12.8 % (11.6-14.8); WHITE BLOOD COUNT 7.7 K/UL (4.8-10.8)
[2016-10-07 07:21] LABS: ANION GAP 15 (5-15); CALCIUM 9.5 mg/dL (8.6-10.2); CARBON DIOXIDE 25 mEQ/L (20-30); CHLORIDE 99 mEQ/L (98-107); CREATININE 1.2 mg/dL (0.7-1.2); GLOMERULAR FILTRATION RATE > 60 mL/min (>60); HEMOLYSIS 17; POTASSIUM 4.6 mEQ/L (3.4-4.9); SODIUM 139 mEQ/L (135-145)
[2016-10-07] MEDS: Heparin 5000 units/ml inj SUBQ SCH ×2 (08:25→22:16)
--- NOTE | 2016-10-07 14:36 | General Progress Note ---
Assessment/Plan Problem List: (1) Neck pain, acute ICD Codes: M54.2 - Cervicalgia SNOMED: 58120385 (2) Opiate dependence ICD Codes: F11.20 - Opioid dependence, uncomplicated SNOMED: 46344108 (3) Back sprain ICD Codes: S23.9XXA - Sprain of unspecified parts of thorax, initial encounter SNOMED: 303471766 (4) HTN (hypertension) ICD Codes: I10 - Essential (primary) hypertension SNOMED: 78606320 (5) Neuropathic pain ICD Codes: M79.2 - Neuralgia and neuritis, unspecified SNOMED: 519928651 (6) Multiple sclerosis (7) KHLOE (acute kidney injury) ICD Codes: N17.9 - Acute kidney failure, unspecified SNOMED: 66153666 Status: stable, progressing, tolerating diet Assessment/Plan ot pt diet pain control dc w hh Subjective Constitutional: Reports: weakness Allergies: Coded Allergies: KETOROLAC (Verified Allergy, Severe, Anaphylaxis, 06/19/15) HYDROCODONE (Verified Allergy, Intermediate, Itching, 06/19/15) All Systems: reviewed and negative except above Subjective sl lbp Objective Last 24 Hour Vital Signs Date Time Temp Pulse Resp B/P Pulse Ox O2 Delivery O2 Flow Rate FiO2 10/07/16 13:12 97.2 10/07/16 12:00 97.2 89 20 138/98 96 Room Air 10/07/16 08:30 97.6 98 20 142/99 95 Room Air 10/07/16 08:28 161/96 10/07/16 08:21 96 161/96 10/07/16 07:50 96 161/96 10/07/16 05:30 137/101 10/07/16 04:30 98.1 98 20 182/109 95 10/07/16 04:13 182/109 10/07/16 00:08 97.7 82 22 159/101 95 Room Air 10/06/16 20:21 97.7 92 20 159/97 98 Room Air 10/06/16 16:00 97.9 85 20 157/107 93 Room Air Intake and Output 10/06/16 10/07/16 19:00 07:00 Intake Total 400 ml Balance 400 ml Intake Oral 400 ml # Voids 4 5 # Bowel Movements 2 Laboratory Tests 10/07/16 05:50: White Blood Count 7.7, Red Blood Count 4.59L, Hemoglobin 14.5, Hematocrit 42.5, Mean Corpuscular Volume 93, Mean Corpuscular Hemoglobin 31.6H, Mean Corpuscular Hemoglobin Concent 34.2, Red Cell Distribution Width 12.8, Platelet Count 230, Mean Platelet Volume 8.7, Neutrophils (%) (Auto) 56.1, Lymphocytes (%) (Auto) 31.8, Monocytes (%) (Auto) 7.5, Eosinophils (%) (Auto) 3.0, Basophils (%) (Auto ) 1.6, Sodium Level 139, Potassium Level 4.6, Chloride Level 99, Carbon Dioxide Level 25, Anion Gap 15, Blood Urea Nitrogen 20, Creatinine 1.2, Estimat Glomerular Filtration Rate > 60, Glucose Level 117H, Calcium Level 9.5 Height (Feet): 6 Height (Inches): 1.00 Weight (Pounds): 223 General Appearance: alert EENT: normal ENT inspection Neck: normal alignment Cardiovascular: normal peripheral pulses, normal rate, regular rhythm Respiratory/Chest: chest wall non-tender, lungs clear, normal breath sounds Abdomen: normal bowel sounds, non tender, soft Extremities: normal inspection Edema: no edema noted Arm (L), no edema noted Arm (R), no edema noted Leg (L), no edema noted Leg (R), no edema noted Pedal (L), no edema noted Pedal (R), no edema noted Generalized Neurologic: responsive, motor weakness Skin: normal pigmentation, warm/dry BARBARA RAGLAND Oct 07, 2016 14:36
--- NOTE | 2016-10-07 16:08 | Pulmonology Progress Note ---
Subjective Allergies: Coded Allergies: KETOROLAC (Verified Allergy, Severe, Anaphylaxis, 06/19/15) HYDROCODONE (Verified Allergy, Intermediate, Itching, 06/19/15) Objective Last 24 Hour Vital Signs Date Time Temp Pulse Resp B/P Pulse Ox O2 Delivery O2 Flow Rate FiO2 10/07/16 13:12 97.2 10/07/16 12:00 97.2 89 20 138/98 96 Room Air 10/07/16 08:30 97.6 98 20 142/99 95 Room Air 10/07/16 08:28 161/96 10/07/16 08:21 96 161/96 10/07/16 07:50 96 161/96 10/07/16 05:30 137/101 10/07/16 04:30 98.1 98 20 182/109 95 10/07/16 04:13 182/109 10/07/16 00:08 97.7 82 22 159/101 95 Room Air 10/06/16 20:21 97.7 92 20 159/97 98 Room Air Intake and Output 10/06/16 10/07/16 19:00 07:00 Intake Total 400 ml Balance 400 ml Intake Oral 400 ml # Voids 4 5 # Bowel Movements 2 Laboratory Tests 10/07/16 05:50: White Blood Count 7.7, Red Blood Count 4.59L, Hemoglobin 14.5, Hematocrit 42.5, Mean Corpuscular Volume 93, Mean Corpuscular Hemoglobin 31.6H, Mean Corpuscular Hemoglobin Concent 34.2, Red Cell Distribution Width 12.8, Platelet Count 230, Mean Platelet Volume 8.7, Neutrophils (%) (Auto) 56.1, Lymphocytes (%) (Auto) 31.8, Monocytes (%) (Auto) 7.5, Eosinophils (%) (Auto) 3.0, Basophils (%) (Auto ) 1.6, Sodium Level 139, Potassium Level 4.6, Chloride Level 99, Carbon Dioxide Level 25, Anion Gap 15, Blood Urea Nitrogen 20, Creatinine 1.2, Estimat Glomerular Filtration Rate > 60, Glucose Level 117H, Calcium Level 9.5 Current Medications Medications (Trade) Dose Ordered Sig/Jessica Route PRN Reason Start Time Stop Time Status Last Admin Dose Admin Acetaminophen (Tylenol) 650 mg Q4H PRN ORAL fever 10/05/16 07:45 11/04/16 07:44 Atenolol (Tenormin) 50 mg DAILY ORAL 10/07/16 09:00 11/06/16 08:59 10/07/16 08:21 Clonidine HCl (Catapres) 0.1 mg Q4H PRN ORAL For SPB>160 10/06/16 07:00 11/05/16 06:59 10/07/16 08:28 Diphenhydramine HCl (Benadryl) 25 mg Q6H PRN IVP Itching 10/05/16 15:00 11/04/16 14:59 10/07/16 12:42 Duloxetine HCl (Cymbalta) 40 mg DAILY ORAL 10/05/16 17:00 11/04/16 16:59 10/07/16 08:20 Gabapentin (Neurontin) 300 mg THREE TIMES A DAY ORAL 10/05/16 18:00 11/04/16 17:59 10/07/16 12:41 Heparin Sodium (Porcine) (Heparin 5000 units/ml) 5,000 units EVERY 12 HOURS SUBQ 10/05/16 10:00 11/04/16 09:59 10/07/16 08:25 Hydromorphone HCl (Dilaudid) 3 mg Q3H PRN IVP For Pain 10/06/16 07:00 10/13/16 06:59 10/07/16 16:01 Ondansetron HCl (Zofran) 4 mg Q6H PRN IVP Nausea & Vomiting 10/05/16 07:45 11/04/16 07:44 Polyethylene Glycol (Miralax) 17 gm DAILY PRN ORAL Constipation 10/05/16 23:15 11/04/16 23:14 10/05/16 23:54 Zolpidem Tartrate (Ambien) 5 mg HSPRN PRN ORAL Insomnia 10/05/16 07:45 11/04/16 07:44 JOSHUA HARRIS Oct 07, 2016 16:07
--- NOTE | 2016-10-07 17:18 | General Progress Note ---
Assessment/Plan Assessment/Plan (1) Multiple Sclerosis (2) Neuropathic pain (3) Cervical DDD (4) Cervical spondylosis (5) Lumbar DDD (6) Lumbar spondylosis (7) Narcotic Dependency (8) Lumbar sprain Patient will be continued on Dilaudid going for MRI of L spine Pt was d/w Dr. Scott and he concurred. Subjective Date patient seen: Oct 07, 2016 Time patient seen: 05:15 - pm Allergies: Coded Allergies: KETOROLAC (Verified Allergy, Severe, Anaphylaxis, 06/19/15) HYDROCODONE (Verified Allergy, Intermediate, Itching, 06/19/15) Subjective Constitutional: Reports: weakness, Denies: chills, diaphoresis, fever, malaise , no symptoms, other HEENT: Denies: blurred vision, double vision, ear discharge, ear pain, eye pain , mouth pain, mouth swelling, no symptoms, nose congestion, nose pain, other, tearing, throat pain, throat swelling Cardiovascular: Denies: chest pain, edema, irregular heart rate, lightheadedness, no symptoms, other, palpitations, syncope Respiratory: Denies: SOB at rest, SOB with excertion, cough, no symptoms, orthopnea, other, shortness of breath, sputum, stridor, wheezing Gastrointestinal/Abdominal: Denies: abdomen distended, abdominal pain, black stools, blood in stool, constipated, diarrhea, difficulty swallowing, nausea, no symptoms, other, poor appetite, poor fluid intake, rectal bleeding, tarry stools, vomiting Genitourinary: Denies: burning, discharge, flank pain, frequency, hematuria, incontinence, no symptoms, other, pain, urgency Neurologic/Psychiatric: Reports: weakness, Denies: anxiety, depressed, emotional problems, headache, no symptoms, numbness, other, paresthesia, pre- existing deficit, seizure, tingling, tremors Endocrine: Denies: excessive sweating, flushing, increased hunger, increased thirst, increased urine, intolerance to cold, intolerance to heat, no symptoms, other, unexplained weight gain, unexplained weight loss Hematologic/Lymphatic: Denies: anemia, easy bleeding, easy bruising, no symptoms, other Subjective Pt continued to c/o pain and weakness the pain is reduced on the Dilaudid. He will be going for MRI. Objective Last 24 Hour Vital Signs Date Time Temp Pulse Resp B/P Pulse Ox O2 Delivery O2 Flow Rate FiO2 10/07/16 16:07 97.3 96 20 135/93 Room Air 10/07/16 13:12 97.2 10/07/16 12:00 97.2 89 20 138/98 96 Room Air 10/07/16 08:30 97.6 98 20 142/99 95 Room Air 10/07/16 08:28 161/96 10/07/16 08:21 96 161/96 10/07/16 07:50 96 161/96 10/07/16 05:30 137/101 10/07/16 04:30 98.1 98 20 182/109 95 10/07/16 04:13 182/109 10/07/16 00:08 97.7 82 22 159/101 95 Room Air 10/06/16 20:21 97.7 92 20 159/97 98 Room Air Intake and Output 10/06/16 10/07/16 19:00 07:00 Intake Total 400 ml Balance 400 ml Intake Oral 400 ml # Voids 4 5 # Bowel Movements 2 Laboratory Tests 10/07/16 05:50: White Blood Count 7.7, Red Blood Count 4.59L, Hemoglobin 14.5, Hematocrit 42.5, Mean Corpuscular Volume 93, Mean Corpuscular Hemoglobin 31.6H, Mean Corpuscular Hemoglobin Concent 34.2, Red Cell Distribution Width 12.8, Platelet Count 230, Mean Platelet Volume 8.7, Neutrophils (%) (Auto) 56.1, Lymphocytes (%) (Auto) 31.8, Monocytes (%) (Auto) 7.5, Eosinophils (%) (Auto) 3.0, Basophils (%) (Auto ) 1.6, Sodium Level 139, Potassium Level 4.6, Chloride Level 99, Carbon Dioxide Level 25, Anion Gap 15, Blood Urea Nitrogen 20, Creatinine 1.2, Estimat Glomerular Filtration Rate > 60, Glucose Level 117H, Calcium Level 9.5 Height (Feet): 6 Height (Inches): 1.00 Weight (Pounds): 223 Objective General Appearance: no apparent distress, alert EENT: PERRL/EOMI, normal ENT inspection Neck: non-tender, normal alignment Cardiovascular: normal peripheral pulses, normal rate, regular rhythm Respiratory/Chest: lungs clear, normal breath sounds Abdomen: non tender, soft Extremities: non-tender Edema: no edema noted Arm (L), no edema noted Arm (R), no edema noted Leg (L), no edema noted Leg (R), no edema noted Pedal (L), no edema noted Pedal (R), no edema noted Generalized Neurologic: alert, oriented x 3 Skin: warm/dry Procedure: CT L Spine no Contrast Impression: No acute injury identified. Minimal anterior wedging of the T12 vertebra likely due to an old injury or degenerative in nature. Lower lumbar facet arthropathy. MAYCOL WILEY. Oct 07, 2016 17:18
[2016-10-08] VITALS (8 sets, daily range): BP systolic 106–186; BP diastolic 70–123
[2016-10-08] MEDS: DiphenhydrAMINE 50mg/ml Inj IVP PRN ×4 (01:19→20:28)
--- NOTE | 2016-10-08 08:58 | General Progress Note ---
Assessment/Plan Assessment/Plan (1) Multiple Sclerosis (2) Neuropathic pain (3) Cervical DDD (4) Cervical spondylosis (5) Lumbar DDD (6) Lumbar spondylosis (7) Narcotic Dependency (8) Lumbar sprain Patient will be continued on Dilaudid. MRI of L spine pending results Pt was d/w Dr. Scott and he concurred. Subjective Date patient seen: Oct 08, 2016 Time patient seen: 07:00 - am Allergies: Coded Allergies: KETOROLAC (Verified Allergy, Severe, Anaphylaxis, 06/19/15) HYDROCODONE (Verified Allergy, Intermediate, Itching, 06/19/15) Subjective Constitutional: Reports: weakness, Denies: chills, diaphoresis, fever, malaise , no symptoms, other HEENT: Denies: blurred vision, double vision, ear discharge, ear pain, eye pain , mouth pain, mouth swelling, no symptoms, nose congestion, nose pain, other, tearing, throat pain, throat swelling Cardiovascular: Denies: chest pain, edema, irregular heart rate, lightheadedness, no symptoms, other, palpitations, syncope Respiratory: Denies: SOB at rest, SOB with excertion, cough, no symptoms, orthopnea, other, shortness of breath, sputum, stridor, wheezing Gastrointestinal/Abdominal: Denies: abdomen distended, abdominal pain, black stools, blood in stool, constipated, diarrhea, difficulty swallowing, nausea, no symptoms, other, poor appetite, poor fluid intake, rectal bleeding, tarry stools, vomiting Genitourinary: Denies: burning, discharge, flank pain, frequency, hematuria, incontinence, no symptoms, other, pain, urgency Neurologic/Psychiatric: Reports: weakness, Denies: anxiety, depressed, emotional problems, headache, no symptoms, numbness, other, paresthesia, pre- existing deficit, seizure, tingling, tremors Endocrine: Denies: excessive sweating, flushing, increased hunger, increased thirst, increased urine, intolerance to cold, intolerance to heat, no symptoms, other, unexplained weight gain, unexplained weight loss Hematologic/Lymphatic: Denies: anemia, easy bleeding, easy bruising, no symptoms, other Subjective Pain has been unchanged and as per pt is tolerated on the Dilaudid. MRI was done however results are pending. Objective Last 24 Hour Vital Signs Date Time Temp Pulse Resp B/P Pulse Ox O2 Delivery O2 Flow Rate FiO2 10/08/16 04:57 96.0 10/08/16 04:00 98.2 86 18 155/90 97 Room Air 10/07/16 23:55 96.0 79 18 138/76 Room Air 10/07/16 20:00 97.0 88 20 136/87 96 Nasal Cannula 10/07/16 20:00 97.7 84 18 136/87 97 Room Air 10/07/16 16:07 97.3 96 20 135/93 Room Air 10/07/16 12:00 97.2 89 20 138/98 96 Room Air Intake and Output 10/07/16 10/08/16 19:00 07:00 Intake Total 360 ml 340 ml Balance 360 ml 340 ml Intake Oral 360 ml 340 ml # Voids 6 2 Height (Feet): 6 Height (Inches): 1.00 Weight (Pounds): 223 Objective General Appearance: no apparent distress, alert EENT: PERRL/EOMI, normal ENT inspection Neck: non-tender, normal alignment Cardiovascular: normal peripheral pulses, normal rate, regular rhythm Respiratory/Chest: lungs clear, normal breath sounds Abdomen: non tender, soft Extremities: non-tender Edema: no edema noted Arm (L), no edema noted Arm (R), no edema noted Leg (L), no edema noted Leg (R), no edema noted Pedal (L), no edema noted Pedal (R), no edema noted Generalized Neurologic: alert, oriented x 3 Skin: warm/dry Procedure: CT L Spine no Contrast Impression: No acute injury identified. Minimal anterior wedging of the T12 vertebra likely due to an old injury or degenerative in nature. Lower lumbar facet arthropathy. MAYCOL WILEY Oct 08, 2016 08:58
[2016-10-08] MEDS: Heparin 5000 units/ml inj SUBQ SCH ×2 (09:26→20:35)
--- NOTE | 2016-10-08 12:03 | Diagnostic Imaging Report ---
Indication: Back pain Technique: MRI examination of the Lumbar spine was performed in a 1.5 Patricia magnet. Sequences obtained include sagittal and axial T1 and T2 fast spin echo, and sagittal STIR. No IV gadolinium was given Comparison: Multiple previous CTs the lumbar spine are noted. There are no prior MRIs for comparison. Findings: The conus medullaris is low-lying noted at the lower end of the L2 vertebra. There is thickening of the filum terminale best appreciated on T2-weighted transaxial images. The findings are suspicious for tethered cord syndrome. This may be an isolated abnormality. There is no filum terminale lipoma. There is no obvious myelomeningocele on this examination. The posterior elements appear intact. There is no evidence of spinal dysraphism. Mild generalized disc desiccation and narrowing demonstrated throughout the visualized lower thoracic and lumbar spine intervertebral discs. There is no disc herniation. Bone marrow signal is normal. Hypertrophied facets demonstrated at multiple levels. There is bilateral foraminal stenosis at L4-5 and L5-S1. There is no evidence of significant central canal stenosis or narrowing or lateral recess demonstrated on this study. Schmorl's node noted in the superior plate of T12. Impression: Suspected tethered cord syndrome given low-lying conus medullaris and thickening of the filum terminale. Suggest neurology or neurosurgical consultation to evaluate for clinical symptoms. Degenerative disease as described above. No acute injury identified.
[2016-10-08] MEDS ORDERED: NS 55ml IV ONE (13:36)
--- NOTE | 2016-10-08 15:35 | General Progress Note ---
Assessment/Plan Problem List: (1) Neck pain, acute ICD Codes: M54.2 - Cervicalgia SNOMED: 52885678 (2) Opiate dependence ICD Codes: F11.20 - Opioid dependence, uncomplicated SNOMED: 42791191 (3) Back sprain ICD Codes: S23.9XXA - Sprain of unspecified parts of thorax, initial encounter SNOMED: 790074699 (4) HTN (hypertension) ICD Codes: I10 - Essential (primary) hypertension SNOMED: 00659788 (5) Neuropathic pain ICD Codes: M79.2 - Neuralgia and neuritis, unspecified SNOMED: 717734918 (6) Multiple sclerosis (7) KHLOE (acute kidney injury) ICD Codes: N17.9 - Acute kidney failure, unspecified SNOMED: 49017014 Status: stable, progressing, tolerating diet Assessment/Plan ot pt diet pain control dc to snf Subjective Constitutional: Reports: weakness Allergies: Coded Allergies: KETOROLAC (Verified Allergy, Severe, Anaphylaxis, 06/19/15) HYDROCODONE (Verified Allergy, Intermediate, Itching, 06/19/15) All Systems: reviewed and negative except above Subjective calm Objective Last 24 Hour Vital Signs Date Time Temp Pulse Resp B/P Pulse Ox O2 Delivery O2 Flow Rate FiO2 10/08/16 14:10 136/107 10/08/16 11:50 97.9 77 20 164/107 95 Room Air 10/08/16 09:27 161/107 10/08/16 09:21 88 184/111 10/08/16 09:21 184/111 10/08/16 08:55 97.9 88 16 184/111 98 Room Air 10/08/16 04:57 96.0 10/08/16 04:00 98.2 86 18 155/90 97 Room Air 10/07/16 23:55 96.0 79 18 138/76 Room Air 10/07/16 20:00 97.0 88 20 136/87 96 Nasal Cannula 10/07/16 20:00 97.7 84 18 136/87 97 Room Air 10/07/16 16:07 97.3 96 20 135/93 Room Air Intake and Output 10/07/16 10/08/16 19:00 07:00 Intake Total 360 ml 340 ml Balance 360 ml 340 ml Intake Oral 360 ml 340 ml # Voids 6 2 Height (Feet): 6 Height (Inches): 1.00 Weight (Pounds): 223 General Appearance: alert EENT: normal ENT inspection Neck: normal alignment Cardiovascular: normal peripheral pulses, normal rate, regular rhythm Respiratory/Chest: chest wall non-tender, lungs clear, normal breath sounds Abdomen: normal bowel sounds, non tender, soft Extremities: normal inspection Edema: no edema noted Arm (L), no edema noted Arm (R), no edema noted Leg (L), no edema noted Leg (R), no edema noted Pedal (L), no edema noted Pedal (R), no edema noted Generalized Neurologic: responsive, motor weakness Skin: normal pigmentation, warm/dry BARBARA RAGLAND Oct 08, 2016 15:35
[2016-10-08] MEDS ORDERED: DILAUDID4 MG ORAL ×2 (16:29→16:33)
[2016-10-08] MEDS ORDERED: NORCO 10-325 T1 EACH ORAL (16:30)
[2016-10-08] MEDS ORDERED: ATENOLOL50 MG ORAL (16:41)
[2016-10-08] MEDS ORDERED: CLONIDINE HCL0.1 MG PO (16:43)
[2016-10-08] MEDS ORDERED: MIRALAX17 G2 ORAL ×2 (16:43→16:45)
[2016-10-08] MEDS ORDERED: NEURONTIN300 MG ORAL (16:45)
[2016-10-08] MEDS ORDERED: CYMBALTA20 MG ORAL (16:46)
[2016-10-08] MEDS ORDERED: DIPHENHYDRAMINE25 M1 ORAL (16:46)
[2016-10-08] MEDS ORDERED: ACETAMINOPHEN325 M1 ORAL (16:48)
[2016-10-08] MEDS ORDERED: AMBIEN5 MG ORAL (16:49)
--- NOTE | 2016-10-08 19:34 | Pulmonology Progress Note ---
Subjective Allergies: Coded Allergies: KETOROLAC (Verified Allergy, Severe, Anaphylaxis, 06/19/15) HYDROCODONE (Verified Allergy, Intermediate, Itching, 06/19/15) Objective Last 24 Hour Vital Signs Date Time Temp Pulse Resp B/P Pulse Ox O2 Delivery O2 Flow Rate FiO2 10/08/16 16:08 98.1 86 16 106/70 98 Room Air 10/08/16 14:10 136/107 10/08/16 11:50 97.9 77 20 164/107 95 Room Air 10/08/16 09:27 161/107 10/08/16 09:21 88 184/111 10/08/16 09:21 184/111 10/08/16 08:55 97.9 88 16 184/111 98 Room Air 10/08/16 04:57 96.0 10/08/16 04:00 98.2 86 18 155/90 97 Room Air 10/07/16 23:55 96.0 79 18 138/76 Room Air 10/07/16 20:00 97.0 88 20 136/87 96 Nasal Cannula 10/07/16 20:00 97.7 84 18 136/87 97 Room Air Intake and Output 10/07/16 10/08/16 19:00 07:00 Intake Total 360 ml 340 ml Balance 360 ml 340 ml Intake Oral 360 ml 340 ml # Voids 6 2 Current Medications Medications (Trade) Dose Ordered Sig/Jessica Route PRN Reason Start Time Stop Time Status Last Admin Dose Admin Acetaminophen (Tylenol) 650 mg Q4H PRN ORAL fever 10/05/16 07:45 11/04/16 07:44 Atenolol (Tenormin) 50 mg DAILY ORAL 10/07/16 09:00 11/06/16 08:59 10/08/16 09:21 Clonidine HCl (Catapres) 0.1 mg Q4H PRN ORAL For SPB>160 10/06/16 07:00 11/05/16 06:59 10/08/16 09:21 Diphenhydramine HCl (Benadryl) 25 mg Q6H PRN IVP Itching 10/05/16 15:00 11/04/16 14:59 10/08/16 14:32 Duloxetine HCl (Cymbalta) 40 mg DAILY ORAL 10/05/16 17:00 11/04/16 16:59 10/08/16 09:29 Gabapentin (Neurontin) 300 mg THREE TIMES A DAY ORAL 10/05/16 18:00 11/04/16 17:59 10/08/16 18:15 Heparin Sodium (Porcine) (Heparin 5000 units/ml) 5,000 units EVERY 12 HOURS SUBQ 10/05/16 10:00 11/04/16 09:59 10/08/16 09:26 Hydromorphone HCl (Dilaudid) 3 mg Q3H PRN IVP For Pain 10/06/16 07:00 10/13/16 06:59 10/08/16 14:31 Ondansetron HCl (Zofran) 4 mg Q6H PRN IVP Nausea & Vomiting 10/05/16 07:45 11/04/16 07:44 Polyethylene Glycol (Miralax) 17 gm DAILY PRN ORAL Constipation 10/05/16 23:15 11/04/16 23:14 10/05/16 23:54 Zolpidem Tartrate (Ambien) 5 mg HSPRN PRN ORAL Insomnia 10/05/16 07:45 11/04/16 07:44 10/07/16 22:10 JOSHUA HARRIS Oct 08, 2016 19:34
--- NOTE | 2016-10-09 19:17 | Discharge Summary ---
Discharge Summary Hospital Course Date of Admission Oct 05, 2016 at 09:31 Date of Discharge Oct 08, 2016 at 22:10 Admitting Diagnosis interactable pain HPI Teto Granda is a 51 year old male who was admitted on Oct 05, 2016 at 09:31 for Interactable Pain Hospital Course [id number] Discharge Discharge Disposition Patient was discharged to SNF/Subacute Facility(03) Discharge Diagnoses: Alicia Castrejon NP Oct 09, 2016 19:17
--- NOTE | 2016-10-10 02:45 | Discharge Summary 2 SIG ---
DATE OF ADMISSION: 10/05/2016 DATE OF DISCHARGE: 10/08/2016 CONSULTANTS: 1. Dayo Conrad M.D. 2. Jassi Scott M.D. 3. Fletcher Scott M.D. BRIEF HOSPITAL COURSE: The patient is a 51-year-old male, who walked in complaining of lower back pain for two days. He states that he fell off a high bed and landed on the left side. He had a known disk disorder and MS and states that the pain is sharp and radiates to the lower back and left foot. He was previously at ED the night prior for same symptoms and was given IM Dilaudid. He came back the following day, complaining of pain to the lower back. Labs showed mild acute kidney injury and was admitted for further evaluation. He was seen by Dr. Scott for evaluation of back pain. The patient has multiple sclerosis, which remained unchanged. He is not on any neuromodulators. Pain management was also consulted and was given p.r.n. Dilaudid. CT of the spine done showed no acute injury with minimal anterior wedging of the T12 vertebra likely due to old injury or degenerative in nature. An MRI of the lumbar spine showed suspected cord syndrome. He underwent physical therapy and occupational therapy and was eventually discharged to a senior living. FINAL DIAGNOSES: 1. Acute kidney injury. 2. Back pain. 3. Opiate dependence. 4. Multiple sclerosis. 5. Neuropathic pain. 6. Degenerative disk disease. 7. Lumbar spondylosis. 8. Hypertensive urgency. DISPOSITION: The patient was discharged to [facility]. Dennis Hoffman D.O. I have been assigned to dictate discharge summary on this account and I was not involved in the patient's management. Alicia Castrejon N.P. DR: Serenity JOB#: [id number] CC: PIERCE
== END 2016-10-08 22:10 | DRG 552 ==
LOC: EMR 07:37 → 4E 09:31 → EDBEDREQ 10:18 → 4E 10-06 20:36
DX: S33.5XXA Sprain of ligaments of lumbar spine, initial encounter (principal); N17.9 Acute kidney failure, unspecified; F11.20 Opioid dependence, uncomplicated; G35 Multiple sclerosis; W06.XXXA Fall from bed, initial encounter; Y92.003 Bedroom of unspecified non-institutional (private) residence as the place of occurrence of the external cause; I10 Essential (primary) hypertension; M54.42 Lumbago with sciatica, left side; Z91.81 History of falling; M47.892 Other spondylosis, cervical region; M47.896 Other spondylosis, lumbar region; M51.16 Intervertebral disc disorders with radiculopathy, lumbar region; I16.0 Hypertensive urgency; Z88.6 Allergy status to analgesic agent; Z88.8 Allergy status to other drugs, medicaments and biological substances; F41.9 Anxiety disorder, unspecified; M54.2 Cervicalgia; M79.2 Neuralgia and neuritis, unspecified
CPT/HCPCS: 36415; 71010; 72131; 72148; 80048; 80053; 82550; 82553; 84484; 85025; 97803

== ENCOUNTER 2016-10-26 18:03 | Emergency (ER) | payer MEDICARE, OTHER ==
[~2016-10-26] VITALS: Ht 182.9 cm; Wt 99.8 kg
[~2016-10-26 18:03] MED LIST changes: +ACETAMINOPHEN325 M1 ORAL; +ATENOLOL50 MG ORAL; +CLONIDINE HCL0.1 MG PO; +CYMBALTA20 MG ORAL; +DIPHENHYDRAMINE25 M1 ORAL; +MIRALAX17 G2 ORAL; +NEURONTIN300 MG ORAL; +NORCO 10-325 T1 EACH ORAL
[2016-10-26 18:19] VITALS: BP 157/115
[2016-10-26] MEDS ORDERED: HYDROmorphone 4mg tab ORAL ONE (18:45)
[2016-10-26] MEDS ORDERED: DILAUDID4 MG ORAL (18:48)
[2016-10-26 19:12] VITALS: BP 155/101
--- NOTE | 2016-10-27 07:33 | Emergency Room Report ---
History of Present Illness General Chief Complaint: Chest Pain Source: Patient Present Illness HPI 51YOM walk-in with chronic lower back pain. Denies acute injury, urinary incontinence, lower extremity weakness. History of MS, but denies "typical flare symptoms." States ran out of home dilaudid, states PMD Dr Hoffman told him to go to ER. Contrary to drafter geophysical note, patient denies chest pain, SOB, abd pain, fever/ chills Ambulated without difficulty into ED. EMR indicates multiple visits to ED, sometimes admission for similar History of narcotic dependence, drug-seeking behavior I was unable to get in touch with Dr Hoffman re what patient has at home for pain meds currently On last admission, Neurology Cx notes possible underlying chronic anxiety contributing to pain, ?recommends anti-depressant medication. Unclear if this was started. Allergies: Coded Allergies: KETOROLAC (Verified Allergy, Severe, Anaphylaxis, 06/19/15) HYDROCODONE (Verified Allergy, Intermediate, Itching, 06/19/15) Patient History Past Medical History: see triage record, old chart reviewed Past Surgical History: none Pertinent Family History: none Social History: Denies: alcohol use, drug use, smoking Immunizations: UTD Reviewed Nursing Documentation: PMH: Agreed, PSxH: Agreed Nursing Documentation-PMH Hx Cardiac Problems: Yes Hx Hypertension: Yes Hx Asthma: No Hx COPD: No Hx Diabetes: No Hx Cancer: No Hx Gastrointestinal Problems: No Hx Dialysis: No Hx Neurological Problems: Yes Hx Cerebrovascular Accident: Yes - TIA (2013) Hx Transient Ischemic Attacks: No Hx Dementia: No Hx Alzheimer's Disease: No Hx Parkinson's Disease: No Hx Meningitis: No Hx Encephalitis: No Hx Seizures: No Hx Epilepsy: No Hx Multiple Sclerosis: Yes Hx Cerebral Palsy: No Hx Amyotrophic Lat Sclerosis: No Hx Guillian-[place] Syndrome: No Hx Paralysis: No Hx Peripheral Neuropathy: No Hx Spinal Cord Injury: No Hx Head Trauma: No Hx Traumatic Brain Injury: No Hx Memory Loss: No Hx Concentration Difficulty: No Hx Speech Problem: No Hx Tremors: No Hx Vertigo: No Hx Dizziness: Yes - SLIGHT Hx Syncope: Yes Hx Headaches: Yes - SOMETIMES Hx Aphasia: No Hx Dysphasia: No Hx Numbness: Yes - RIGHT HAND Hx Weakness: Yes - ALL OF THE BODY Hx Fatigue: Yes - SLIGHT Hx Neurologic Surgery: No Hx Brain Shunt: No Review of Systems All Other Systems: negative except mentioned in HPI Physical Exam Vital Signs Date Time Temp Pulse Resp B/P Pulse Ox O2 Delivery O2 Flow Rate FiO2 10/26/16 18:07 98.1 111 15 157/115 97 Room Air Sp02 EP Interpretation: reviewed, normal General Appearance: normal inspection, well appearing, no apparent distress, alert Head: normocephalic, atraumatic Eyes: bilateral eye EOMI, bilateral eye PERRL ENT: normal ENT inspection, hearing grossly normal, normal voice Neck: normal inspection, full range of motion, supple, no bony tend Respiratory: normal inspection, lungs clear, normal breath sounds, no respiratory distress, no retraction, no wheezing Cardiovascular #1: regular rate, rhythm, no edema Gastrointestinal: normal inspection, normal bowel sounds, non tender, soft, no guarding, no hernia Genitourinary: no CVA tenderness Neurologic: normal inspection, alert, oriented x3, responsive, probation worker III-XII nml as tested, motor strength/tone normal, speech normal Psychiatric: normal inspection, judgement/insight normal, mood/affect normal Skin: normal inspection, normal color, no rash Lymphatic: normal inspection Medical Decision Making Diagnostic Impression: Primary Impression: Chronic pain Qualified Codes: G89.4 - Chronic pain syndrome Additional Impression: Opiate dependence Qualified Codes: F11.20 - Opioid dependence, uncomplicated ER Course VSS. Afebrile. A: low suspicion for cord compression given well appearance, hyperasthesia to any palpation of back, no focal neuro deficits, able to ambulate absence of midline ttp/masses, atrauumatic, multiple visits for same Repeated requests for IV or IM dilaudid Was given his standard dose of PO dilaudid and Rx for short-course After discharge, also asking for refill of Ativan Last Vital Signs Date Time Temp Pulse Resp B/P Pulse Ox O2 Delivery O2 Flow Rate FiO2 10/26/16 19:12 98.1 98 16 155/101 98 Room Air Status: improved Disposition: HOME, SELF-CARE Condition: Improved Scripts Hydromorphone HCl (Dilaudid) 4 Mg Tablet 4 MG ORAL BID for 7 Days, #14 TAB 0 Refills Prov: DEBORA LAIRD M.D. 10/26/16 Referrals: NOT CHOSEN IPA/,REFERRING (PCP) Patient Instructions: Chronic Pain Additional Instructions: - Please follow up with Dr Hoffman and stained glass painter DEBORA LAIRD M.D. Oct 27, 2016 07:33
--- NOTE | 2016-10-28 20:08 | Cardiology Report ---
APPROVED REPORT EKG Measurement Heart [id number] Normal sinus rhythm Anteroseptal infarct, age undetermined Abnormal ECG
== END 2016-10-26 19:12 | disposition home or self-care (01) ==
LOC: EMR 18:25
DX: G89.29 Other chronic pain (principal); M54.5 Low back pain; F11.20 Opioid dependence, uncomplicated; I10 Essential (primary) hypertension; Z86.73 Personal history of transient ischemic attack (TIA), and cerebral infarction without residual deficits; Z88.8 Allergy status to other drugs, medicaments and biological substances
CPT/HCPCS: 93005; 99283

== ENCOUNTER 2016-11-12 12:51 | Inpatient (IN) | payer MEDICARE, OTHER ==
[~2016-11-12] VITALS: Ht 182.9 cm; Wt 99.8 kg
[2016-11-12] VITALS (7 sets, daily range): BP systolic 153–183; BP diastolic 92–127
[2016-11-12] MEDS ORDERED: PREDNISONE20 MG ORAL (13:21)
[2016-11-12] MEDS ORDERED: Solu-MEDROL 125mg Inj IVP ONE (13:30)
--- NOTE | 2016-11-12 13:52 | Emergency Room Report ---
History of Present Illness General Chief Complaint: Pain Source: Patient Present Illness HPI Patient presents with increase in his extremity pain. He states that this is how his multiple sclerosis behaves when it worsens. He attributes to worsening of his multiple sclerosis to the heat. He states he is unable to ambulate because of the pain in his knees. The pain is more in his right knee. Also has pain in his left side and claims he has some weakness there. Denies any fevers, chills, chest pain and shortness of breath, nausea, vomiting or diarrhea The patient signed out from a rehabilitation facility a month ago and has been at home. He is uncertain whether he's been taking prednisone at this time but believes he has. He states he's had chemotherapy in the past to treat his multiple sclerosis. He has R knee pain. Some swelling. Pain 10/10. Worse when moves and ambulates. Constant. Not radiating. He also has hypertension. No fevers, cough, chest pain, headache, sore throat, change in vision. No rashes. Allergies: Coded Allergies: KETOROLAC (Verified Allergy, Severe, Anaphylaxis, 06/19/15) Patient History Past Medical History: see triage record Social History: Reports: alcohol use, drug use, Denies: smoking Social History Narrative and at home with Reviewed Nursing Documentation: PMH: Agreed, PSxH: Agreed Nursing Documentation-PMH Hx Cardiac Problems: Yes - CAD Hx Hypertension: Yes Hx Asthma: No Hx COPD: No Hx Diabetes: No Hx Cancer: No Hx Gastrointestinal Problems: No Hx Dialysis: No Hx Neurological Problems: Yes - MS Hx Cerebrovascular Accident: Yes - TIA (2013) Hx Transient Ischemic Attacks: No Hx Dementia: No Hx Alzheimer's Disease: No Hx Parkinson's Disease: No Hx Meningitis: No Hx Encephalitis: No Hx Seizures: No Hx Epilepsy: No Hx Multiple Sclerosis: Yes Hx Cerebral Palsy: No Hx Amyotrophic Lat Sclerosis: No Hx Guillian-[place] Syndrome: No Hx Paralysis: No Hx Peripheral Neuropathy: No Hx Spinal Cord Injury: No Hx Head Trauma: No Hx Traumatic Brain Injury: No Hx Memory Loss: No Hx Concentration Difficulty: No Hx Speech Problem: No Hx Tremors: No Hx Vertigo: No Hx Dizziness: Yes - SLIGHT Hx Syncope: Yes Hx Headaches: Yes - SOMETIMES Hx Aphasia: No Hx Dysphasia: No Hx Numbness: Yes - RIGHT HAND Hx Weakness: Yes - ALL OF THE BODY Hx Fatigue: Yes - SLIGHT Hx Neurologic Surgery: No Hx Brain Shunt: No Review of Systems All Other Systems: negative except mentioned in HPI Physical Exam Vital Signs Date Time Temp Pulse Resp B/P Pulse Ox O2 Delivery O2 Flow Rate FiO2 11/12/16 13:04 98.1 79 16 179/102 99 Room Air Sp02 EP Interpretation: reviewed, normal General Appearance: well appearing, GCS 15, mild distress - due to pain Head: normocephalic Eyes: bilateral eye PERRL, bilateral eye normal inspection ENT: moist mucus membranes Neck: supple Respiratory: lungs clear, normal breath sounds Cardiovascular #1: regular rate, rhythm Cardiovascular #2: 2+ radial (R) Gastrointestinal: normal inspection, normal bowel sounds, non tender, no mass, non-distended Musculoskeletal: back normal, swelling - R knee, other - difficulty walking, decreased ROM R knee Neurologic: alert, oriented x3, sensory intact, cerebellar normal, speech normal, motor weakness - L leg Psychiatric: anxious - and in pain Skin: normal inspection, warm/dry, other - no warmh of knees Medical Decision Making Diagnostic Impression: Primary Impression: Multiple sclerosis, relapsing-remitting Additional Impressions: Leukocytosis Qualified Codes: D72.829 - Elevated white blood cell count, unspecified Gout Qualified Codes: M10.9 - Gout, unspecified Hypertensive urgency ER Course Patient with increased pain with h/o MS. Ddx: exacerbation, electrolyte abnormalities, viral syndrome, gout, opiate seeking, occult infection amongst others. Evaluation with labs, EKG. Treatment with IV hydration, solumedrol and analgesia. BP needs to be addressed - consider malignant HTN, HTN urgency. EKG and CXR unremarkable. Labs significant for leukocytosis, elevated uric acid. RNs unable to start IV. PICC line ordered. Hypertension treated with hydralazine and clonidine. Discussed new diagnosis of gout. Colchicine given. BP still significantly elevated. Hydralazine repeated. States morphine not working. Fentanyl given. It was documented that he had a hydromorphone allergy and he was requesting this medicine. I discussed he needed to clear this up with his physician. Improved. Admit med, Dr. Ragland. Laboratory Tests Test 11/12/16 14:11 11/12/16 18:39 White Blood Count 14.0 K/UL (4.8-10.8) H Red Blood Count 5.72 M/UL (4.70-6.10) Hemoglobin 17.5 G/DL (14.2-18.0) Hematocrit 53.9 % (42.0-52.0) H Mean Corpuscular Volume 94 FL (80-99) Mean Corpuscular Hemoglobin 30.6 PG (27.0-31.0) Mean Corpuscular Hemoglobin Concent 32.5 G/DL (32.0-36.0) Red Cell Distribution Width 12.2 % (11.6-14.8) Platelet Count 275 K/UL (150-450) Mean Platelet Volume 7.7 FL (6.5-10.1) Neutrophils (%) (Auto) % (45.0-75.0) Lymphocytes (%) (Auto) % (20.0-45.0) Monocytes (%) (Auto) % (1.0-10.0) Eosinophils (%) (Auto) % (0.0-3.0) Basophils (%) (Auto) % (0.0-2.0) Differential Total Cells Counted 100 Neutrophils % (Manual) 82 % (45-75) H Lymphocytes % (Manual) 12 % (20-45) L Monocytes % (Manual) 5 % (1-10) Eosinophils % (Manual) 0 % (0-3) Basophils % (Manual) 0 % (0-2) Band Neutrophils 1 % (0-8) Platelet Estimate Adequate Platelet Morphology Normal Red Blood Cell Morphology Normal Erythrocyte Sedimentation Rate 4 MM/HR (0-20) Prothrombin Time 10.5 SEC (9.30-11.50) Prothrombin Time INR 1.0 (0.9-1.1) PTT 26 SEC (23-33) Sodium Level 142 mEQ/L (135-145) Potassium Level 4.6 mEQ/L (3.4-4.9) Chloride Level 103 mEQ/L (98-107) Carbon Dioxide Level 25 mEQ/L (20-30) Anion Gap 14 (5-15) Blood Urea Nitrogen 19 mg/dL (7-23) Creatinine 1.2 mg/dL (0.7-1.2) Estimate Glomerular Filtration Rate > 60 mL/min (>60) Glucose Level 111 mg/dL (74-106) H Uric Acid 7.7 mg/dL (3.0-7.5) H Calcium Level 10.0 mg/dL (8.6-10.2) Total Bilirubin < 0.2 mg/dL (0.0-1.2) Aspartate Amino Transferase (AST) 21 U/L (5-40) Alanine Aminotransferase (ALT) 19 U/L (3-41) Alkaline Phosphatase 106 U/L (40-129) Total Creatine Kinase 258 U/L (38-174) H Troponin I < 0.30 ng/mL (<=0.30) Pro-B-Type Natriuretic Peptide 117 pg/mL (0-125) Total Protein 6.8 g/dL (6.6-8.7) Albumin 4.5 g/dL (3.5-5.2) Globulin 2.3 g/dL Albumin/Globulin Ratio 1.9 (1.0-2.7) Urine Color Pale yellow Urine Appearance Clear Urine pH 6 (4.5-8.0) Urine Specific [place] 1.010 (1.005-1.035) Urine Protein Negative (NEGATIVE) Urine Glucose (UA) 1+ (NEGATIVE) H Urine Ketones Negative (NEGATIVE) Urine Occult Blood Negative (NEGATIVE) Urine Nitrite Negative (NEGATIVE) Urine Bilirubin Negative (NEGATIVE) Urine Urobilinogen Normal MG/DL (0.0-1.0) Urine Leukocyte Esterase Negative (NEGATIVE) Urine Opiates Screen Positive (NEGATIVE) H Urine Barbiturates Screen Negative (NEGATIVE) Phencyclidine (PCP) Screen Negative (NEGATIVE) Urine Amphetamines Screen Negative (NEGATIVE) Urine Benzodiazepines Screen Negative (NEGATIVE) Urine Cocaine Screen Negative (NEGATIVE) Urine Marijuana (THC) Screen Negative (NEGATIVE) EKG Diagnostic Results Rate: normal Rhythm: NSR ST Segments: no acute changes Rhythm Strip Diag. Results EP Interpretation: yes Rhythm: NSR, no PVC's, no ectopy Chest X-Ray Diagnostic Results Chest X-Ray Diagnostic Results : Chest X-Ray Ordered: Yes # of Views/Limited/Complete: 1 View Indication: Other Interpretation: no consolidation, no effusion, no pneumothorax, no acute cardiopulmonary disease Impression: No acute disease Interpreting ER Provider: Electronically signed by Johnnie Zavala MD Last Vital Signs Date Time Temp Pulse Resp B/P Pulse Ox O2 Delivery O2 Flow Rate FiO2 11/12/16 18:59 97.9 94 18 159/97 98 Room Air Status: improved Disposition: ADMITTED INPATIENT Condition: Serious Referrals: BARBARA RAGLAND (PCP) Johnnie Zavala M.D. Nov 12, 2016 13:52
[2016-11-12] MEDS ORDERED: Solu-MEDROL 125mg Inj IM STA (14:11)
--- NOTE | 2016-11-12 14:12 | Diagnostic Imaging Report ---
Indication: Dyspnea Comparison: 10/05/16 A single view chest radiograph was obtained. Findings: Cardiomediastinal appearance is within normal limits for age. Pulmonary vascularity is appropriate. The diaphragmatic contour is smooth and costophrenic angles are sharp. No pleural effusions are identified. The bones are unremarkable. Impression: No acute findings
[2016-11-12] MEDS ORDERED: Morphine Sulfate 10mg/ml Inj IM ONE (14:15)
[2016-11-12] MEDS ORDERED: DiphenhydrAMINE 50mg/ml Inj IM ONE (14:30)
[2016-11-12] MEDS ORDERED: Miralax 17gm pkt ORAL PRN (15:00)
[2016-11-12] MEDS ORDERED: Mylanta II UD 30ml ORAL PRN (15:00)
[2016-11-12] MEDS ORDERED: Morphine Sulfate 4mg/ml Inj IVP PRN (15:00)
[2016-11-12] MEDS ORDERED: Morphine Sulfate 2mg/ml Inj IVP PRN (15:00)
[2016-11-12 15:09] LABS: MEAN CORPUSCULAR HEMOGLOBIN 30.6 PG (27.0-31.0); MEAN CORPUSCULAR HGB CONC 32.5 G/DL (32.0-36.0); MEAN CORPUSCULAR VOLUME 94 FL (80-99); MEAN PLATELET VOLUME 7.7 FL (6.5-10.1); PLATELET COUNT 275 K/UL (150-450); RED BLOOD COUNT 5.72 M/UL (4.70-6.10); RED CELL DISTRIBUTION WIDTH 12.2 % (11.6-14.8)
[2016-11-12] MEDS ORDERED: Heparin 2000 units/Ns 1000ml IV ONE (15:15)
[2016-11-12] MEDS ORDERED: Lidocaine 1% Plain 30 ml INJ ONE (15:15)
[2016-11-12 15:24] LABS: PROTHROMBIN TIME 10.5 SEC (9.30-11.50)
[2016-11-12 15:29] LABS: TROPONIN I < 0.30 ng/mL (<=0.30)
[2016-11-12 15:33] LABS: ALANINE AMINOTRANSFERASE 19 U/L (3-41); ALBUMIN/GLOBULIN RATIO 1.9 (1.0-2.7); ANION GAP 14 (5-15); ASPARTATE AMINO TRANSFERASE 21 U/L (5-40); CARBON DIOXIDE 25 mEQ/L (20-30); CHLORIDE 103 mEQ/L (98-107); CREATININE 1.2 mg/dL (0.7-1.2); GLOMERULAR FILTRATION RATE > 60 mL/min (>60); HEMOLYSIS 8; POTASSIUM 4.6 mEQ/L (3.4-4.9); SODIUM 142 mEQ/L (135-145); TOTAL PROTEIN 6.8 g/dL (6.6-8.7); URIC ACID 7.7 mg/dL (3.0-7.5)
--- NOTE | 2016-11-12 15:49 | Diagnostic Imaging Report ---
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 The left upper extremity was prepped with alcohol. All elements of maximal sterile barrier technique were followed including usage of a cap, mask, sterile gown, sterile gloves, hand hygiene and a large sterile sheet. Sonographic evaluation of the upper extremity was performed demonstrating a patent and compressible brachial vein. Access was obtained under real-time ultrasound guidance and digital image was saved and archived. An .018 wire was introduced. Needle exchanged for a 5 [place] peel-away sheath. Measurements were obtained. A 5 [place] dual-lumen Power PICC line catheter was cut to 42 cm and introduced over the wire. Peel-away sheath and wire were removed.Catheter was secured to the skin using 2-0 Prolene suture. Both ports aspirate and flush easily. Fluoroscopic Images show distal tip in the superior vena cava. Total fluoroscopic time 0.4 minutes Impression: Successful placement of an upper extremity PICC line catheter
[2016-11-12] MEDS ORDERED: cloNIDine 0.2mg Tab ORAL ONE (16:00)
[2016-11-12] MEDS ORDERED: Morphine Sulfate 4mg/ml Inj IVP ONE (16:00)
[2016-11-12 16:19] LABS: ERYTHROCYTE SEDIMENTATION RATE 4 MM/HR (0-20)
[2016-11-12 17:05] LABS: BAND NEUTROPHILS % (MANUAL) 1 % (0-8); BASOPHILS % (MANUAL) 0 % (0-2); EOSINOPHILS % (MANUAL) 0 % (0-3); LYMPHOCYTES % (MANUAL) 12 % (20-45); NEUTROPHILS % (MANUAL) 82 % (45-75); PLATELET ESTIMATE ADEQUATE; PLATELET MORPHOLOGY NORMAL; TOTAL CELLS COUNTED 100
[2016-11-12] MEDS ORDERED: fentaNYL 100 mcg/2 mL IV ONE (17:15)
[2016-11-12] MEDS ORDERED: cloNIDine 0.2mg Tab ORAL SCH (18:00)
--- NOTE | 2016-11-12 18:36 | Neurology Progress Note ---
Objective Physical Exam Last Vital Signs Date Time Temp Pulse Resp B/P Pulse Ox O2 Delivery O2 Flow Rate FiO2 11/12/16 18:27 97.5 92 16 157/93 99 Room Air Laboratory Tests Test 11/12/16 14:11 White Blood Count 14.0 K/UL (4.8-10.8) H Red Blood Count 5.72 M/UL (4.70-6.10) Hemoglobin 17.5 G/DL (14.2-18.0) Hematocrit 53.9 % (42.0-52.0) H Mean Corpuscular Volume 94 FL (80-99) Mean Corpuscular Hemoglobin 30.6 PG (27.0-31.0) Mean Corpuscular Hemoglobin Concent 32.5 G/DL (32.0-36.0) Red Cell Distribution Width 12.2 % (11.6-14.8) Platelet Count 275 K/UL (150-450) Mean Platelet Volume 7.7 FL (6.5-10.1) Neutrophils (%) (Auto) % (45.0-75.0) Lymphocytes (%) (Auto) % (20.0-45.0) Monocytes (%) (Auto) % (1.0-10.0) Eosinophils (%) (Auto) % (0.0-3.0) Basophils (%) (Auto) % (0.0-2.0) Differential Total Cells Counted 100 Neutrophils % (Manual) 82 % (45-75) H Lymphocytes % (Manual) 12 % (20-45) L Monocytes % (Manual) 5 % (1-10) Eosinophils % (Manual) 0 % (0-3) Basophils % (Manual) 0 % (0-2) Band Neutrophils 1 % (0-8) Platelet Estimate Adequate Platelet Morphology Normal Red Blood Cell Morphology Normal Erythrocyte Sedimentation Rate 4 MM/HR (0-20) Prothrombin Time 10.5 SEC (9.30-11.50) Prothromb Time International Ratio 1.0 (0.9-1.1) Activated Partial Thromboplast Time 26 SEC (23-33) Sodium Level 142 mEQ/L (135-145) Potassium Level 4.6 mEQ/L (3.4-4.9) Chloride Level 103 mEQ/L (98-107) Carbon Dioxide Level 25 mEQ/L (20-30) Anion Gap 14 (5-15) Blood Urea Nitrogen 19 mg/dL (7-23) Creatinine 1.2 mg/dL (0.7-1.2) Estimat Glomerular Filtration Rate > 60 mL/min (>60) Glucose Level 111 mg/dL (74-106) H Uric Acid 7.7 mg/dL (3.0-7.5) H Calcium Level 10.0 mg/dL (8.6-10.2) Total Bilirubin < 0.2 mg/dL (0.0-1.2) Aspartate Amino Transf (AST/SGOT) 21 U/L (5-40) Alanine Aminotransferase (ALT/SGPT) 19 U/L (3-41) Alkaline Phosphatase 106 U/L (40-129) Total Creatine Kinase 258 U/L (38-174) H Troponin I < 0.30 ng/mL (<=0.30) Pro-B-Type Natriuretic Peptide 117 pg/mL (0-125) Total Protein 6.8 g/dL (6.6-8.7) Albumin 4.5 g/dL (3.5-5.2) Globulin 2.3 g/dL Albumin/Globulin Ratio 1.9 (1.0-2.7) Impression/Recommendations Problems: (1) Opiate dependence (2) HTN (hypertension) (3) Anxiety disorder (4) Accelerated hypertension (5) Multiple sclerosis Status: unchanged Recommendations patient examined, orders given. dict follows MARKOS CROOKS Nov 12, 2016 18:36
[2016-11-12 18:57] LABS: APPEARANCE,URINE CLEAR; KETONES,URINE NEGATIVE (NEGATIVE); LEUKOCYTE ESTERASE ,URINE NEGATIVE (NEGATIVE); NITRITE,URINE NEGATIVE (NEGATIVE); PH,URINE 6 (4.5-8.0); PROTEIN,URINE NEGATIVE (NEGATIVE); UROBILINOGEN,URINE NORMAL MG/DL (0.0-1.0)
[2016-11-12] MEDS ORDERED: HYDROmorphone 4mg tab ORAL SCH (21:00)
[2016-11-12] MEDS: Heparin 5000 units/ml inj SUBQ SCH (21:01)
[2016-11-12] MEDS: DiphenhydrAMINE 50mg/ml Inj IVP PRN (21:04)
[2016-11-12] MEDS: Zolpidem 5mg tab ORAL PRN (23:09)
[2016-11-13] VITALS: BP 176/107
[2016-11-13 01:00] VITALS: BP 149/101
[2016-11-13] MEDS: DiphenhydrAMINE 50mg/ml Inj IVP PRN ×6 (01:11→22:49)
[2016-11-13] MEDS: LORazepam Inj 2mg/ml 1ml IV PRN ×3 (03:58→17:25)
[2016-11-13 04:00] VITALS: BP 163/109
[2016-11-13 07:21] LABS: BASOPHILS % (AUTO) 0.5 % (0.0-2.0); LYMPHOCYTES % (AUTO) 12.1 % (20.0-45.0); MEAN CORPUSCULAR HEMOGLOBIN 31.4 PG (27.0-31.0); MEAN CORPUSCULAR HGB CONC 32.8 G/DL (32.0-36.0); MEAN CORPUSCULAR VOLUME 96 FL (80-99); MEAN PLATELET VOLUME 8.2 FL (6.5-10.1); MONOCYTES % (AUTO) 4.2 % (1.0-10.0); NEUTROPHILS % (AUTO) 83.2 % (45.0-75.0); PLATELET COUNT 246 K/UL (150-450); RED BLOOD COUNT 4.91 M/UL (4.70-6.10); RED CELL DISTRIBUTION WIDTH 12.4 % (11.6-14.8); WHITE BLOOD COUNT 15.6 K/UL (4.8-10.8)
[2016-11-13 07:31] LABS: THYROID STIMULATING HORMONE 0.486 uIU/mL (0.300-4.500)
[2016-11-13 07:33] LABS: ALANINE AMINOTRANSFERASE 19 U/L (3-41); ALBUMIN/GLOBULIN RATIO 2.2 (1.0-2.7); ANION GAP 13 (5-15); ASPARTATE AMINO TRANSFERASE 25 U/L (5-40); CALCIUM 9.6 mg/dL (8.6-10.2); CARBON DIOXIDE 24 mEQ/L (20-30); CHLORIDE 103 mEQ/L (98-107); CREATININE 1.3 mg/dL (0.7-1.2); GLOMERULAR FILTRATION RATE > 60 mL/min (>60); HEMOLYSIS 12; POTASSIUM 4.3 mEQ/L (3.4-4.9); SODIUM 140 mEQ/L (135-145); TOTAL PROTEIN 6.1 g/dL (6.6-8.7)
[2016-11-13 08:00] VITALS: BP 140/78
--- NOTE | 2016-11-13 08:47 | Diagnostic Imaging Report ---
Indication: Focal weakness. Headache Technique: Contiguous 5 mm thick transaxial imaging of the head obtained in a Siemens Sensation [address] scanner. Soft tissue and bone windows generated. Total Dose length Product (DLP): [address] Dose Index Volume (CTDIvol): 70.38 mGy Comparison: 08/29/16 Findings: Mild, nonspecific, white matter hypoattenuation is noted throughout the brain consistent with chronic small vessel disease. There is no midline shift, edema, acute hemorrhage, mass effect, or abnormal extra-axial fluid collections. Bones and extra osseous soft tissues are unremarkable. Impression: No acute intracranial bleed, mass effect or edema. Nonspecific white matter hypoattenuation possibly due to chronic small vessel disease. The CT scanner at [facility] is accredited by the [place] [employer] and the scans are performed using dose optimization techniques as appropriate to a performed exam including Automatic Exposure control.
[2016-11-13] MEDS ORDERED: Miralax 17gm pkt ORAL SCH (09:00)
--- NOTE | 2016-11-13 09:04 | General Progress Note ---
Assessment/Plan Assessment/Plan (1) Multiple Sclerosis (2) Neuropathic pain (3) Cervical DDD (4) Cervical spondylosis (5) Lumbar DDD (6) Lumbar spondylosis (7) Narcotic Dependency Patient will be continued on Dilaudid at 2mg IV Q3H PRN severe pain. Pt was d/w Dr. Scott and he concurred. Subjective Date patient seen: Nov 13, 2016 Time patient seen: 07:15 - am Allergies: Coded Allergies: KETOROLAC (Verified Allergy, Severe, Anaphylaxis, 06/19/15) Subjective Constitutional: Reports: weakness, Denies: chills, diaphoresis, fever, malaise , no symptoms, other HEENT: Denies: blurred vision, double vision, ear discharge, ear pain, eye pain , mouth pain, mouth swelling, no symptoms, nose congestion, nose pain, other, tearing, throat pain, throat swelling Cardiovascular: Denies: chest pain, edema, irregular heart rate, lightheadedness, no symptoms, other, palpitations, syncope Respiratory: Denies: SOB at rest, SOB with excertion, cough, no symptoms, orthopnea, other, shortness of breath, sputum, stridor, wheezing Gastrointestinal/Abdominal: Denies: abdomen distended, abdominal pain, black stools, blood in stool, constipated, diarrhea, difficulty swallowing, nausea, no symptoms, other, poor appetite, poor fluid intake, rectal bleeding, tarry stools, vomiting Genitourinary: Denies: burning, discharge, flank pain, frequency, hematuria, incontinence, no symptoms, other, pain, urgency Neurologic/Psychiatric: Reports: weakness, Denies: anxiety, depressed, emotional problems, headache, no symptoms, numbness, other, paresthesia, pre- existing deficit, seizure, tingling, tremors Endocrine: Denies: excessive sweating, flushing, increased hunger, increased thirst, increased urine, intolerance to cold, intolerance to heat, no symptoms, other, unexplained weight gain, unexplained weight loss Hematologic/Lymphatic: Denies: anemia, easy bleeding, easy bruising, no symptoms, other Subjective Pt is a known patient from prior admission and has been admitted under the care of Dr Frank due to MS exacerbation and is c/o severe pain Started on Dilaudid 2mg IV Q4H PRN which lasts for 3 hours and the pain returns. Objective Last 24 Hour Vital Signs Date Time Temp Pulse Resp B/P Pulse Ox O2 Delivery O2 Flow Rate FiO2 11/13/16 04:00 97.6 96 18 163/109 94 Room Air 11/13/16 04:00 97.6 96 18 163/109 94 Room Air 11/13/16 01:00 149/101 11/13/16 00:04 176/107 11/13/16 00:00 97.0 94 17 176/107 96 Room Air 11/12/16 20:00 96.4 87 20 160/93 97 Room Air 11/12/16 18:59 97.9 94 18 159/97 98 Room Air 11/12/16 18:33 92 16 157/93 99 Room Air 11/12/16 18:27 97.5 92 16 157/93 99 Room Air 11/12/16 17:30 85 14 154/92 99 Room Air 11/12/16 17:30 157/93 11/12/16 17:00 87 18 174/114 99 Room Air 11/12/16 16:31 163/124 11/12/16 16:12 173/123 11/12/16 16:00 74 19 153/126 99 Room Air 11/12/16 14:51 98.1 11/12/16 14:51 98.1 11/12/16 14:51 98.1 11/12/16 14:30 79 24 183/127 99 Room Air 11/12/16 13:25 72 16 Room Air 11/12/16 13:04 98.1 79 16 179/102 99 Room Air Intake and Output 11/12/16 11/13/16 19:00 07:00 Intake Total 0 ml Balance 0 ml Intake Oral 0 ml # Voids 3 Laboratory Tests 11/12/16 14:11: White Blood Count 14.0H, Red Blood Count 5.72, Hemoglobin 17.5, Hematocrit 53.9H , Mean Corpuscular Volume 94, Mean Corpuscular Hemoglobin 30.6, Mean Corpuscular Hemoglobin Concent 32.5, Red Cell Distribution Width 12.2, Platelet Count 275, Mean Platelet Volume 7.7, Neutrophils (%) (Auto) , Lymphocytes (%) ( Auto) , Monocytes (%) (Auto) , Eosinophils (%) (Auto) , Basophils (%) (Auto) , Differential Total Cells Counted 100, Neutrophils % (Manual) 82H, Lymphocytes % (Manual) 12L, Monocytes % (Manual) 5, Eosinophils % (Manual) 0, Basophils % ( Manual) 0, Band Neutrophils 1, Platelet Estimate Adequate, Platelet Morphology Normal, Red Blood Cell Morphology Normal, Erythrocyte Sedimentation Rate 4, Prothrombin Time 10.5, Prothromb Time International Ratio 1.0, Activated Partial Thromboplast Time 26, Sodium Level 142, Potassium Level 4.6, Chloride Level 103, Carbon Dioxide Level 25, Anion Gap 14, Blood Urea Nitrogen 19, Creatinine 1.2, Estimat Glomerular Filtration Rate > 60, Glucose Level 111H, Uric Acid 7.7H, Calcium Level 10.0, Total Bilirubin < 0.2, Aspartate Amino Transf (AST/SGOT) 21, Alanine Aminotransferase (ALT/SGPT) 19, Alkaline Phosphatase 106, Total Creatine Kinase 258H, Troponin I < 0.30, Pro-B-Type Natriuretic Peptide 117, Total Protein 6.8, Albumin 4.5, Globulin 2.3, Albumin/ Globulin Ratio 1.9 11/12/16 18:39: Urine Color Pale yellow, Urine Appearance Clear, Urine pH 6, Urine Specific [place] 1.010, Urine Protein Negative, Urine Glucose (UA) 1+H, Urine Ketones Negative, Urine Occult Blood Negative, Urine Nitrite Negative, Urine Bilirubin Negative, Urine Urobilinogen Normal, Urine Leukocyte Esterase Negative, Urine Opiates Screen PositiveH, Urine Barbiturates Screen Negative, Phencyclidine (PCP ) Screen Negative, Urine Amphetamines Screen Negative, Urine Benzodiazepines Screen Negative, Urine Cocaine Screen Negative, Urine Marijuana (THC) Screen Negative 11/13/16 06:00: White Blood Count 15.6H, Red Blood Count 4.91, Hemoglobin 15.4, Hematocrit 47.1 , Mean Corpuscular Volume 96, Mean Corpuscular Hemoglobin 31.4H, Mean Corpuscular Hemoglobin Concent 32.8, Red Cell Distribution Width 12.4, Platelet Count 246, Mean Platelet Volume 8.2, Neutrophils (%) (Auto) 83.2H, Lymphocytes ( %) (Auto) 12.1L, Monocytes (%) (Auto) 4.2, Eosinophils (%) (Auto) 0.0, Basophils (%) (Auto) 0.5, Sodium Level 140, Potassium Level 4.3, Chloride Level 103, Carbon Dioxide Level 24, Anion Gap 13, Blood Urea Nitrogen 22, Creatinine 1.3H, Estimat Glomerular Filtration Rate > 60, Glucose Level 149H, Calcium Level 9.6, Total Bilirubin < 0.2, Aspartate Amino Transf (AST/SGOT) 25, Alanine Aminotransferase (ALT/SGPT) 19, Alkaline Phosphatase 103, Total Protein 6.1L, Albumin 4.2, Globulin 1.9, Albumin/Globulin Ratio 2.2, Thyroid Stimulating Hormone (TSH) 0.486 Height (Feet): 6 Height (Inches): 0.00 Weight (Pounds): 220 Objective General Appearance: no apparent distress, alert EENT: PERRL/EOMI, normal ENT inspection Neck: non-tender, normal alignment Cardiovascular: normal peripheral pulses, normal rate, regular rhythm Respiratory/Chest: lungs clear, normal breath sounds Abdomen: non tender, soft Extremities: non-tender Edema: no edema noted Arm (L), no edema noted Arm (R), no edema noted Leg (L), no edema noted Leg (R), no edema noted Pedal (L), no edema noted Pedal (R), no edema noted Generalized Neurologic: alert, oriented x 3 Skin: warm/dry MAYCOL WILEY PAurora Nov 13, 2016 09:03
[2016-11-13] MEDS: Heparin 5000 units/ml inj SUBQ SCH ×2 (09:21→20:14)
[2016-11-13] MEDS: Dyna-Hex 2% Top Sol 8oz TOPIC SCH (09:32)
[2016-11-13 12:00] VITALS: BP 187/132
--- NOTE | 2016-11-13 12:57 | Neurology Progress Note ---
Interim History Interim History ROS Limited/Unobtainable: No Complaints: severe pain all body head Events: no chenge on opiates pend MRI Objective Physical Exam Last Vital Signs Date Time Temp Pulse Resp B/P Pulse Ox O2 Delivery O2 Flow Rate FiO2 11/13/16 12:43 190/123 11/13/16 08:00 97.2 18 96 Room Air 11/13/16 04:00 96 Laboratory Tests Test 11/12/16 14:11 11/12/16 18:39 11/13/16 06:00 White Blood Count 14.0 K/UL (4.8-10.8) H 15.6 K/UL (4.8-10.8) H Red Blood Count 5.72 M/UL (4.70-6.10) 4.91 M/UL (4.70-6.10) Hemoglobin 17.5 G/DL (14.2-18.0) 15.4 G/DL (14.2-18.0) Hematocrit 53.9 % (42.0-52.0) H 47.1 % (42.0-52.0) Mean Corpuscular Volume 94 FL (80-99) 96 FL (80-99) Mean Corpuscular Hemoglobin 30.6 PG (27.0-31.0) 31.4 PG (27.0-31.0) H Mean Corpuscular Hemoglobin Concent 32.5 G/DL (32.0-36.0) 32.8 G/DL (32.0-36.0) Red Cell Distribution Width 12.2 % (11.6-14.8) 12.4 % (11.6-14.8) Platelet Count 275 K/UL (150-450) 246 K/UL (150-450) Mean Platelet Volume 7.7 FL (6.5-10.1) 8.2 FL (6.5-10.1) Neutrophils (%) (Auto) % (45.0-75.0) 83.2 % (45.0-75.0) H Lymphocytes (%) (Auto) % (20.0-45.0) 12.1 % (20.0-45.0) L Monocytes (%) (Auto) % (1.0-10.0) 4.2 % (1.0-10.0) Eosinophils (%) (Auto) % (0.0-3.0) 0.0 % (0.0-3.0) Basophils (%) (Auto) % (0.0-2.0) 0.5 % (0.0-2.0) Differential Total Cells Counted 100 Neutrophils % (Manual) 82 % (45-75) H Lymphocytes % (Manual) 12 % (20-45) L Monocytes % (Manual) 5 % (1-10) Eosinophils % (Manual) 0 % (0-3) Basophils % (Manual) 0 % (0-2) Band Neutrophils 1 % (0-8) Platelet Estimate Adequate Platelet Morphology Normal Red Blood Cell Morphology Normal Erythrocyte Sedimentation Rate 4 MM/HR (0-20) Prothrombin Time 10.5 SEC (9.30-11.50) Prothromb Time International Ratio 1.0 (0.9-1.1) Activated Partial Thromboplast Time 26 SEC (23-33) Sodium Level 142 mEQ/L (135-145) 140 mEQ/L (135-145) Potassium Level 4.6 mEQ/L (3.4-4.9) 4.3 mEQ/L (3.4-4.9) Chloride Level 103 mEQ/L (98-107) 103 mEQ/L (98-107) Carbon Dioxide Level 25 mEQ/L (20-30) 24 mEQ/L (20-30) Anion Gap 14 (5-15) 13 (5-15) Blood Urea Nitrogen 19 mg/dL (7-23) 22 mg/dL (7-23) Creatinine 1.2 mg/dL (0.7-1.2) 1.3 mg/dL (0.7-1.2) H Estimat Glomerular Filtration Rate > 60 mL/min (>60) > 60 mL/min (>60) Glucose Level 111 mg/dL (74-106) H 149 mg/dL (74-106) H Uric Acid 7.7 mg/dL (3.0-7.5) H Calcium Level 10.0 mg/dL (8.6-10.2) 9.6 mg/dL (8.6-10.2) Total Bilirubin < 0.2 mg/dL (0.0-1.2) < 0.2 mg/dL (0.0-1.2) Aspartate Amino Transf (AST/SGOT) 21 U/L (5-40) 25 U/L (5-40) Alanine Aminotransferase (ALT/SGPT) 19 U/L (3-41) 19 U/L (3-41) Alkaline Phosphatase 106 U/L (40-129) 103 U/L (40-129) Total Creatine Kinase 258 U/L (38-174) H Troponin I < 0.30 ng/mL (<=0.30) Pro-B-Type Natriuretic Peptide 117 pg/mL (0-125) Total Protein 6.8 g/dL (6.6-8.7) 6.1 g/dL (6.6-8.7) L Albumin 4.5 g/dL (3.5-5.2) 4.2 g/dL (3.5-5.2) Globulin 2.3 g/dL 1.9 g/dL Albumin/Globulin Ratio 1.9 (1.0-2.7) 2.2 (1.0-2.7) Urine Color Pale yellow Urine Appearance Clear Urine pH 6 (4.5-8.0) Urine Specific [place] 1.010 (1.005-1.035) Urine Protein Negative (NEGATIVE) Urine Glucose (UA) 1+ (NEGATIVE) H Urine Ketones Negative (NEGATIVE) Urine Occult Blood Negative (NEGATIVE) Urine Nitrite Negative (NEGATIVE) Urine Bilirubin Negative (NEGATIVE) Urine Urobilinogen Normal MG/DL (0.0-1.0) Urine Leukocyte Esterase Negative (NEGATIVE) Urine Opiates Screen Positive (NEGATIVE) H Urine Barbiturates Screen Negative (NEGATIVE) Phencyclidine (PCP) Screen Negative (NEGATIVE) Urine Amphetamines Screen Negative (NEGATIVE) Urine Benzodiazepines Screen Negative (NEGATIVE) Urine Cocaine Screen Negative (NEGATIVE) Urine Marijuana (THC) Screen Negative (NEGATIVE) Thyroid Stimulating Hormone (TSH) 0.486 uIU/mL (0.300-4.500) General: well developed, well nourished, no acute distress Head: normocophalic, atraumatic Neck: no rigidity Neurologic Exam Mental Status: awake, alert, oriented x4, normal cognition Speech: normal speech, no dysarthia Language: normal language, no aphasia Cranial Nerve II: fundus normal, visual keller, no papilledema Cranial Nerves III, IV, : PERRLA, EOMI, pupils Cranial Nerve V: normal facial sensations, temporales function normal, masseters function normal, pterygoids function normal Cranial Nerve VII: no facial asymmetry, normal facial expressions Cranial Nerve VIII: normal hearing, no nystagmus Cranial Nerve IX: normal palate elevation, gag response Cranial Nerve X: no voice hoarseness Cranial Nerve XI: SCM symmetric, trapezii function normal Cranial Nerve XII: tongue midline, no tongue atrophy/fasciculations Motor System: other - L leg 4/5 Sensory: normal pinprick Coordination: normal finger to nose bilaterally Deep Tendon Reflexes: 0 ankle (L), 0 ankle (R), 0 bicep (L), 0 bicep (R), 0 brachioradialis (L), 0 brachioradialis (R), 0 knee (L), 0 knee (R), 0 tricep (L) , 0 tricep (R) Reflexes: mute plantar (L), mute plantar (R) Impression/Recommendations Problems: (1) Opiate dependence (2) HTN (hypertension) (3) Anxiety disorder (4) Accelerated hypertension (5) Multiple sclerosis Status: unchanged Recommendations patient examined, orders given # [id number] MRI brain C-T-spine cont pain mgmt MARKOS CROOKS Nov 13, 2016 12:57
--- NOTE | 2016-11-13 16:02 | Consultation ---
History of Present Illness General Date patient seen: Nov 13, 2016 Chief Complaint: Pain Referring physician: Dr. Hoffman Reason for Consultation: inpatient management Present Illness HPI 51 year old male with hx of MS, presented to ER with increase pain in his extremity pain. He states that this is how his multiple sclerosis behaves when it is worsen.. He is unable to ambulate because of the pain in his knees. The pain is more in his right knee. Also has pain in his left side and claims he has some weakness there. Denies any fevers, chills, chest pain and shortness of breath, nausea, vomiting or diarrhea He is admitted for further work up. Allergies: Coded Allergies: KETOROLAC (Verified Allergy, Severe, Anaphylaxis, 06/19/15) Medication History Scheduled Acetaminophen* (Acetaminophen 325MG Tablet*), 650 MG ORAL Q4H PRN, (Reported) Aspirin* (Aspir 81*), 81 MG ORAL DAILY, (Reported) Atenolol* (Tenormin*), 50 MG ORAL DAILY, (Reported) Clonidine Hcl (Clonidine Hcl), 0.1 MG PO Q4HR PRN, (Reported) Clonidine Hcl* (Catapres*), 0.2 MG ORAL Q6HR, (Reported) Duloxetine (Cymbalta), 40 MG ORAL DAILY, (Reported) Gabapentin (Neurontin), 300 MG ORAL THREE TIMES A DAY, (Reported) Hydrochlorothiazide* (Hydrochlorothiazide*), 50 MG ORAL DAILY Hydromorphone HCl (Dilaudid), 4 MG ORAL BID, (Reported) Hydromorphone HCl (Dilaudid), 4 MG ORAL BID Polyethylene Glycol 3350* (Miralax*), 17 GM ORAL DAILY PRN, (Reported) Polyethylene Glycol 3350* (Miralax*), 17 GM ORAL DAILY PRN , (Reported) Prednisone* (Prednisone*), Unknown Dose ORAL DAILY, (Reported) Scheduled PRN Diphenhydramine Hcl* (Diphenhydramine Hcl*), 25 MG ORAL Q6H PRN for Itching, ( Reported) Hydrocodone Bit/Acetaminophen 10-325* ([place] 10-325*), 1 TAB ORAL Q4H PRN for For Pain, (Reported) Hydromorphone HCl (Dilaudid), 4 MG ORAL Q3HR PRN PRN for Severe Pain (Pain Scale 7-10), (Reported) Zolpidem Tartrate* (Ambien*), 5 MG ORAL BEDTIME PRN for Insomnia, (Reported) Miscellaneous Medications Ibuprofen (Ibuprofen), (Reported) Patient History Healthcare decision maker Resuscitation status Advanced Directive on File Past Medical/Surgical History Past Medical/Surgical History: (1) Thalamic pain syndrome (2) Drug seeking behavior (3) Opiate dependence (4) Hypertension (5) Diabetes (6) Multiple sclerosis, secondary progressive (7) Anxiety disorder Review of Systems All Other Systems: negative except mentioned in HPI Physical Exam General Appearance: WD/WN Lines, tubes and drains: peripheral HEENT: normocephalic, atraumatic Neck: non-tender, normal alignment Respiratory/Chest: chest wall non-tender, lungs clear Breasts: no masses Cardiovascular/Chest: normal peripheral pulses, normal rate, regular rhythm Abdomen: normal bowel sounds, soft, hyperactive bowel sounds Genitourinary/Rectal: normal rectal exam Extremities: normal range of motion Last 24 Hour Vital Signs Date Time Temp Pulse Resp B/P Pulse Ox O2 Delivery O2 Flow Rate FiO2 11/13/16 12:43 190/123 11/13/16 12:00 98.0 97 20 187/132 Room Air 11/13/16 08:00 97.2 18 140/78 96 Room Air 11/13/16 04:00 97.6 96 18 163/109 94 Room Air 11/13/16 04:00 97.6 96 18 163/109 94 Room Air 11/13/16 01:00 149/101 11/13/16 00:04 176/107 11/13/16 00:00 97.0 94 17 176/107 96 Room Air 11/12/16 20:00 96.4 87 20 160/93 97 Room Air 11/12/16 18:59 97.9 94 18 159/97 98 Room Air 11/12/16 18:33 92 16 157/93 99 Room Air 11/12/16 18:27 97.5 92 16 157/93 99 Room Air 11/12/16 17:30 85 14 154/92 99 Room Air 11/12/16 17:30 157/93 11/12/16 17:00 87 18 174/114 99 Room Air 11/12/16 16:31 163/124 11/12/16 16:12 173/123 11/12/16 16:00 74 19 153/126 99 Room Air Intake and Output 11/12/16 11/13/16 19:00 07:00 Intake Total 0 ml Balance 0 ml Intake Oral 0 ml # Voids 3 Laboratory Tests Test 11/12/16 18:39 11/13/16 06:00 Urine Color Pale yellow Urine Appearance Clear Urine pH 6 (4.5-8.0) Urine Specific [place] 1.010 (1.005-1.035) Urine Protein Negative (NEGATIVE) Urine Glucose (UA) 1+ (NEGATIVE) H Urine Ketones Negative (NEGATIVE) Urine Occult Blood Negative (NEGATIVE) Urine Nitrite Negative (NEGATIVE) Urine Bilirubin Negative (NEGATIVE) Urine Urobilinogen Normal MG/DL (0.0-1.0) Urine Leukocyte Esterase Negative (NEGATIVE) Urine Opiates Screen Positive (NEGATIVE) H Urine Barbiturates Screen Negative (NEGATIVE) Phencyclidine (PCP) Screen Negative (NEGATIVE) Urine Amphetamines Screen Negative (NEGATIVE) Urine Benzodiazepines Screen Negative (NEGATIVE) Urine Cocaine Screen Negative (NEGATIVE) Urine Marijuana (THC) Screen Negative (NEGATIVE) White Blood Count 15.6 K/UL (4.8-10.8) H Red Blood Count 4.91 M/UL (4.70-6.10) Hemoglobin 15.4 G/DL (14.2-18.0) Hematocrit 47.1 % (42.0-52.0) Mean Corpuscular Volume 96 FL (80-99) Mean Corpuscular Hemoglobin 31.4 PG (27.0-31.0) H Mean Corpuscular Hemoglobin Concent 32.8 G/DL (32.0-36.0) Red Cell Distribution Width 12.4 % (11.6-14.8) Platelet Count 246 K/UL (150-450) Mean Platelet Volume 8.2 FL (6.5-10.1) Neutrophils (%) (Auto) 83.2 % (45.0-75.0) H Lymphocytes (%) (Auto) 12.1 % (20.0-45.0) L Monocytes (%) (Auto) 4.2 % (1.0-10.0) Eosinophils (%) (Auto) 0.0 % (0.0-3.0) Basophils (%) (Auto) 0.5 % (0.0-2.0) Sodium Level 140 mEQ/L (135-145) Potassium Level 4.3 mEQ/L (3.4-4.9) Chloride Level 103 mEQ/L (98-107) Carbon Dioxide Level 24 mEQ/L (20-30) Anion Gap 13 (5-15) Blood Urea Nitrogen 22 mg/dL (7-23) Creatinine 1.3 mg/dL (0.7-1.2) H Estimat Glomerular Filtration Rate > 60 mL/min (>60) Glucose Level 149 mg/dL (74-106) H Calcium Level 9.6 mg/dL (8.6-10.2) Total Bilirubin < 0.2 mg/dL (0.0-1.2) Aspartate Amino Transf (AST/SGOT) 25 U/L (5-40) Alanine Aminotransferase (ALT/SGPT) 19 U/L (3-41) Alkaline Phosphatase 103 U/L (40-129) Total Protein 6.1 g/dL (6.6-8.7) L Albumin 4.2 g/dL (3.5-5.2) Globulin 1.9 g/dL Albumin/Globulin Ratio 2.2 (1.0-2.7) Thyroid Stimulating Hormone (TSH) 0.486 uIU/mL (0.300-4.500) Height (Feet): 6 Height (Inches): 0.00 Weight (Pounds): 220 Medications Current Medications Medications (Trade) Dose Ordered Sig/Jessica Route PRN Reason Start Time Stop Time Status Last Admin Dose Admin Acetaminophen (Tylenol) 650 mg Q4H PRN ORAL fever 11/12/16 15:00 12/12/16 14:59 Al Hydroxide/Mg Hydroxide (Mylanta II) 30 ml Q6H PRN ORAL dyspepsia 11/12/16 15:00 12/12/16 14:59 Chlorhexidine Gluconate (Jaqueline-Hex 2%) 1 applic DAILY TOPIC 11/13/16 09:00 12/13/16 08:59 11/13/16 09:32 Clonidine HCl (Catapres) 0.1 mg Q8H PRN ORAL Systolic BP greater than 160 11/12/16 19:30 12/12/16 19:29 11/13/16 12:43 Dextrose (Dextrose 50%) STAT PRN IV Hypoglycemia 11/12/16 15:00 12/12/16 14:59 Diphenhydramine HCl (Benadryl) 25 mg Q4H PRN IVP Itching 11/12/16 20:30 12/12/16 20:29 11/13/16 13:13 Duloxetine HCl (Cymbalta) 40 mg DAILY ORAL 11/13/16 09:00 12/13/16 08:59 11/13/16 09:16 Gabapentin (Neurontin) 300 mg THREE TIMES A DAY ORAL 11/12/16 21:00 12/12/16 20:59 11/13/16 12:38 Heparin Sodium (Porcine) (Heparin 5000 units/ml) 5,000 units EVERY 12 HOURS SUBQ 11/12/16 21:00 12/12/16 20:59 11/13/16 09:21 Hydromorphone HCl (Dilaudid) 2 mg Q2H PRN IVP For Pain 11/13/16 14:15 11/20/16 14:14 Lorazepam (Ativan 2mg/ml 1ml) 0.5 mg Q4H PRN IV For Anxiety 11/12/16 15:00 11/19/16 14:59 11/13/16 08:02 Ondansetron HCl (Zofran) 4 mg Q6H PRN IVP Nausea & Vomiting 11/12/16 15:00 12/12/16 14:59 11/13/16 13:13 Polyethylene Glycol (Miralax) 17 gm HSPRN PRN ORAL Constipation 11/12/16 15:00 12/12/16 14:59 Zolpidem Tartrate (Ambien) 5 mg HSPRN PRN ORAL Insomnia 11/12/16 15:00 12/12/16 14:59 11/12/16 23:09 Assessment/Plan Problem List: (1) Intractable pain ICD Codes: R52 - Pain, unspecified SNOMED: 71450499 (2) Multiple sclerosis, secondary progressive ICD Codes: G35 - Multiple sclerosis, secondary progressive SNOMED: 594654966 (3) Hypertension ICD Codes: I10 - Essential (primary) hypertension SNOMED: 63743147 (4) Diabetes ICD Codes: E11.9 - Diabetes SNOMED: 34503394 (5) Leukocytosis ICD Codes: D72.829 - Leukocytosis SNOMED: 798694929 Qualifiers: Qualified Codes: D72.829 - Elevated white blood cell count, unspecified Assessment/Plan Pain management Neuro evaluation sliding scale, insulin coverage, ? psych evaluation JOSHUA HARRIS Nov 13, 2016 16:02
--- NOTE | 2016-11-13 16:56 | Cardiology Report ---
APPROVED REPORT EKG Measurement Heart [id number] Normal sinus rhythm Anteroseptal infarct, age undetermined Abnormal ECG
--- NOTE | 2016-11-13 17:03 | Diagnostic Imaging Report ---
Indication: PAIN Technique: Sagittal T1 fast spin echo, sagittal T2 FRFSE, sagittal STIR,, axial T2 FRFSE, axial T1, pre-and postcontrast sagittal and axial fat-saturated T1-weighted images of the thoracic spine Comparison: 08/25/2014 Findings: Vertebral body alignment is preserved. Vertebral body marrow signal is preserved. Again demonstrated is mild old compression fracture deformity of the T12 superior endplate and associated Schmorl's node. Multiple foci of cord signal abnormality are now evident. Some of these are subtle and equivocal. There is abnormal cord signal at the T1 level, in retrospect possibly evident on the prior axial images, but more evident currently. Abnormal cord signal is seen at the T7 level on the sagittal images, not clearly evident on the axial per the previous images. Abnormal cord signal is seen at T8 level on axial and sagittal images, area obscured by artifact on the previous axial images, not clearly evident on the previous sagittal images. Small central focus of high signal is seen at T10, not evident previously. There is suggestion of contrast enhancement of the T10 lesion on the sagittal images. No other definite contrast enhancement is demonstrated. Again demonstrated is an extruded disc fragment at T7-T8 on the left. This impinges slightly on the thecal sac, impinges on the left lateral recess. No significant neural foraminal compromise demonstrated. No other significant disc bulge or protrusion, spinal stenosis, or neural foraminal stenosis is demonstrated. Some enhancement of the T12 superior endplate Schmorl's node is evident. Is actually considerably more striking than on the prior study. No other unusual contrast enhancement is demonstrated. The included extraspinal soft tissues are unremarkable. Impression: Multiple foci of cord high T2 signal abnormality, as detailed above. A few may have been evident previously in retrospect but more conspicuous currently. 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 Lesion at the T10 level enhances, consistent with active demyelinization. Acuity of the remainder indeterminate given lack of active enhancement. Other demyelinating disease also possible. Extruded left subarticular T7-T8 disc fragment, unchanged from previous study. This impinges on the lateral recess, and slightly upon the thecal sac. Correlate with clinical findings as regards clinical significance No evidence of acute bony trauma
--- NOTE | 2016-11-13 17:22 | Diagnostic Imaging Report ---
Indication: Headaches and neck pain/back pain x1 week, history of multiple sclerosis Technique: Sagittal T1 fast spin echo, sagittal T2 FRFSE, sagittal STIR,, axial T2 FRFSE, axial COSMIC ASPIR, pre-and postcontrast sagittal and axial fat-saturated T1-weighted images of the cervical spine Comparison: 08/25/2014 Findings: Bony alignment is normal. Vertebral body heights are preserved vertebral body marrow signal is normal. Focus of increased T2 signal at the level of the foramen magnum is again demonstrated, unchanged. Focus of increased T2 signal posterior to the midportion of the C2 vertebral body is less conspicuous than on the prior study. Second focus of increased cord signal at the level of the C2-3 disc is new or more conspicuous than on the prior study. There is cord signal abnormality extending from C7-T1, more conspicuous on the axial than on the sagittal images. It is not clearly evident previously. None of these lesions enhance on the postcontrast images. No unusual enhancement is evident elsewhere. At C2-3, there is minimal circumferential annular bulge. The disc space is preserved. There is severe narrowing of the right neural foramen, which has progressed considerably since the prior study. At C3-4, there is mild circumferential annular bulge which does not significantly narrow the spinal canal. The disc space is preserved. There is moderate right and severe left neural foraminal stenosis. That on the left has progressed considerably since the previous study. At C4-5, there is minimal degenerative disc narrowing. There is circumferential annular bulge, as well as right paracentral disc protrusion. These are much more apparent than on the prior exam. This may be in part due to improved imaging quality on the current study, but the right paracentral disc protrusion appears to definite represent a new finding. There is some associated high signal within the disc, consistent with annular fissure. This impinges to some extent on the right side of the cord and on the lateral recess. There is also severe bilateral neural foraminal stenosis, which appears to progressed since the previous study. At C5-6, no significant disc bulge or protrusion. There is degenerative disc narrowing.. There is mild right and severe left neural foraminal stenosis, which appears to have progressed since the previous study. At C6-7, there is degenerative disc narrowing. There is mild circumferential annular bulge which does not appear to significantly compromise the spinal canal. There is moderate right and mild left neural foraminal stenosis. At C7-T1, no significant disc bulge or protrusion, spinal stenosis, or neural foraminal narrowing. The included extraspinal soft tissues are unremarkable. Impression: Foci of abnormal cord signal, as detailed above, consistent with foci of demyelinization, given stated clinical history of multiple sclerosis. At C2-3 and C7-T1 are new or increased from the previous exam. However, acuity is indeterminate as these do not enhance. Other demyelinating disease is possible as well. New finding of right paracentral disc protrusion at C4-5, with evidence of some impingement upon the right side of the port as well as right lateral recess. There is an associated annular fissure. Other degenerative changes as detailed on a level by level basis above. This overall appears more severe than on the prior study. Apparent change may be more apparent than real given better imaging quality on the current study, but nonetheless suspect true progression of disease at multiple levels. No acute bony trauma
--- NOTE | 2016-11-13 17:53 | Infectious Diseases Prog Note ---
Assessment/Plan Problems: (1) Leukocytosis Assessment & Plan: rule out pneumonia, or sepsis, will send blood culture and order CXR, start levaquin empirically (2) Multiple sclerosis Assessment & Plan: with acute flare, neurology is following (3) Diabetes Assessment & Plan: recommend tight glycemic control to keep blood glucose between 80-120 Subjective Allergies: Coded Allergies: KETOROLAC (Verified Allergy, Severe, Anaphylaxis, 06/19/15) Objective Vital Signs Last 24 Hour Vital Signs Date Time Temp Pulse Resp B/P Pulse Ox O2 Delivery O2 Flow Rate FiO2 11/13/16 17:00 98.0 11/13/16 12:43 190/123 11/13/16 12:00 98.0 97 20 187/132 Room Air 11/13/16 08:00 97.2 18 140/78 96 Room Air 11/13/16 04:00 97.6 96 18 163/109 94 Room Air 11/13/16 04:00 97.6 96 18 163/109 94 Room Air 11/13/16 01:00 149/101 11/13/16 00:04 176/107 11/13/16 00:00 97.0 94 17 176/107 96 Room Air 11/12/16 20:00 96.4 87 20 160/93 97 Room Air 11/12/16 18:59 97.9 94 18 159/97 98 Room Air 11/12/16 18:33 92 16 157/93 99 Room Air 11/12/16 18:27 97.5 92 16 157/93 99 Room Air Height (Feet): 6 Height (Inches): 0.00 Weight (Pounds): 220 Laboratory Tests Test 11/12/16 18:39 11/13/16 06:00 Urine Color Pale yellow Urine Appearance Clear Urine pH 6 (4.5-8.0) Urine Specific [place] 1.010 (1.005-1.035) Urine Protein Negative (NEGATIVE) Urine Glucose (UA) 1+ (NEGATIVE) H Urine Ketones Negative (NEGATIVE) Urine Occult Blood Negative (NEGATIVE) Urine Nitrite Negative (NEGATIVE) Urine Bilirubin Negative (NEGATIVE) Urine Urobilinogen Normal MG/DL (0.0-1.0) Urine Leukocyte Esterase Negative (NEGATIVE) Urine Opiates Screen Positive (NEGATIVE) H Urine Barbiturates Screen Negative (NEGATIVE) Phencyclidine (PCP) Screen Negative (NEGATIVE) Urine Amphetamines Screen Negative (NEGATIVE) Urine Benzodiazepines Screen Negative (NEGATIVE) Urine Cocaine Screen Negative (NEGATIVE) Urine Marijuana (THC) Screen Negative (NEGATIVE) White Blood Count 15.6 K/UL (4.8-10.8) H Red Blood Count 4.91 M/UL (4.70-6.10) Hemoglobin 15.4 G/DL (14.2-18.0) Hematocrit 47.1 % (42.0-52.0) Mean Corpuscular Volume 96 FL (80-99) Mean Corpuscular Hemoglobin 31.4 PG (27.0-31.0) H Mean Corpuscular Hemoglobin Concent 32.8 G/DL (32.0-36.0) Red Cell Distribution Width 12.4 % (11.6-14.8) Platelet Count 246 K/UL (150-450) Mean Platelet Volume 8.2 FL (6.5-10.1) Neutrophils (%) (Auto) 83.2 % (45.0-75.0) H Lymphocytes (%) (Auto) 12.1 % (20.0-45.0) L Monocytes (%) (Auto) 4.2 % (1.0-10.0) Eosinophils (%) (Auto) 0.0 % (0.0-3.0) Basophils (%) (Auto) 0.5 % (0.0-2.0) Sodium Level 140 mEQ/L (135-145) Potassium Level 4.3 mEQ/L (3.4-4.9) Chloride Level 103 mEQ/L (98-107) Carbon Dioxide Level 24 mEQ/L (20-30) Anion Gap 13 (5-15) Blood Urea Nitrogen 22 mg/dL (7-23) Creatinine 1.3 mg/dL (0.7-1.2) H Estimat Glomerular Filtration Rate > 60 mL/min (>60) Glucose Level 149 mg/dL (74-106) H Calcium Level 9.6 mg/dL (8.6-10.2) Total Bilirubin < 0.2 mg/dL (0.0-1.2) Aspartate Amino Transf (AST/SGOT) 25 U/L (5-40) Alanine Aminotransferase (ALT/SGPT) 19 U/L (3-41) Alkaline Phosphatase 103 U/L (40-129) Total Protein 6.1 g/dL (6.6-8.7) L Albumin 4.2 g/dL (3.5-5.2) Globulin 1.9 g/dL Albumin/Globulin Ratio 2.2 (1.0-2.7) Thyroid Stimulating Hormone (TSH) 0.486 uIU/mL (0.300-4.500) Current Medications Medications (Trade) Dose Ordered Sig/Jessica Route PRN Reason Start Time Stop Time Status Last Admin Dose Admin Acetaminophen (Tylenol) 650 mg Q4H PRN ORAL fever 11/12/16 15:00 12/12/16 14:59 Al Hydroxide/Mg Hydroxide (Mylanta II) 30 ml Q6H PRN ORAL dyspepsia 11/12/16 15:00 12/12/16 14:59 Chlorhexidine Gluconate (Jaqueline-Hex 2%) 1 applic DAILY TOPIC 11/13/16 09:00 12/13/16 08:59 11/13/16 09:32 Clonidine HCl (Catapres) 0.1 mg Q8H PRN ORAL Systolic BP greater than 160 11/12/16 19:30 12/12/16 19:29 11/13/16 12:43 Dextrose (Dextrose 50%) STAT PRN IV Hypoglycemia 11/12/16 15:00 12/12/16 14:59 Diphenhydramine HCl (Benadryl) 25 mg Q4H PRN IVP Itching 11/12/16 20:30 12/12/16 20:29 11/13/16 17:28 Duloxetine HCl (Cymbalta) 40 mg DAILY ORAL 11/13/16 09:00 12/13/16 08:59 11/13/16 09:16 Gabapentin (Neurontin) 300 mg THREE TIMES A DAY ORAL 11/12/16 21:00 12/12/16 20:59 11/13/16 17:40 Heparin Sodium (Porcine) (Heparin 5000 units/ml) 5,000 units EVERY 12 HOURS SUBQ 11/12/16 21:00 12/12/16 20:59 11/13/16 09:21 Hydromorphone HCl (Dilaudid) 2 mg Q2H PRN IVP For Pain 11/13/16 14:15 11/20/16 14:14 11/13/16 16:30 Lorazepam (Ativan 2mg/ml 1ml) 0.5 mg Q4H PRN IV For Anxiety 11/12/16 15:00 11/19/16 14:59 11/13/16 17:25 Ondansetron HCl (Zofran) 4 mg Q6H PRN IVP Nausea & Vomiting 11/12/16 15:00 12/12/16 14:59 11/13/16 13:13 Polyethylene Glycol (Miralax) 17 gm HSPRN PRN ORAL Constipation 11/12/16 15:00 12/12/16 14:59 Zolpidem Tartrate (Ambien) 5 mg HSPRN PRN ORAL Insomnia 11/12/16 15:00 12/12/16 14:59 11/12/16 23:09 Aditi Bustamante M.D. Nov 13, 2016 17:53
--- NOTE | 2016-11-13 18:08 | Cardiac Electrophysiology PN ---
Subjective Subjective [id number] Objective Last 24 Hour Vital Signs Date Time Temp Pulse Resp B/P Pulse Ox O2 Delivery O2 Flow Rate FiO2 11/13/16 17:00 98.0 11/13/16 12:43 190/123 11/13/16 12:00 98.0 97 20 187/132 Room Air 11/13/16 08:00 97.2 18 140/78 96 Room Air 11/13/16 04:00 97.6 96 18 163/109 94 Room Air 11/13/16 04:00 97.6 96 18 163/109 94 Room Air 11/13/16 01:00 149/101 11/13/16 00:04 176/107 11/13/16 00:00 97.0 94 17 176/107 96 Room Air 11/12/16 20:00 96.4 87 20 160/93 97 Room Air 11/12/16 18:59 97.9 94 18 159/97 98 Room Air 11/12/16 18:33 92 16 157/93 99 Room Air 11/12/16 18:27 97.5 92 16 157/93 99 Room Air Intake and Output 11/12/16 11/13/16 19:00 07:00 Intake Total 0 ml Balance 0 ml Intake Oral 0 ml # Voids 3 Laboratory Tests Test 11/12/16 18:39 11/13/16 06:00 Urine Color Pale yellow Urine Appearance Clear Urine pH 6 (4.5-8.0) Urine Specific [place] 1.010 (1.005-1.035) Urine Protein Negative (NEGATIVE) Urine Glucose (UA) 1+ (NEGATIVE) H Urine Ketones Negative (NEGATIVE) Urine Occult Blood Negative (NEGATIVE) Urine Nitrite Negative (NEGATIVE) Urine Bilirubin Negative (NEGATIVE) Urine Urobilinogen Normal MG/DL (0.0-1.0) Urine Leukocyte Esterase Negative (NEGATIVE) Urine Opiates Screen Positive (NEGATIVE) H Urine Barbiturates Screen Negative (NEGATIVE) Phencyclidine (PCP) Screen Negative (NEGATIVE) Urine Amphetamines Screen Negative (NEGATIVE) Urine Benzodiazepines Screen Negative (NEGATIVE) Urine Cocaine Screen Negative (NEGATIVE) Urine Marijuana (THC) Screen Negative (NEGATIVE) White Blood Count 15.6 K/UL (4.8-10.8) H Red Blood Count 4.91 M/UL (4.70-6.10) Hemoglobin 15.4 G/DL (14.2-18.0) Hematocrit 47.1 % (42.0-52.0) Mean Corpuscular Volume 96 FL (80-99) Mean Corpuscular Hemoglobin 31.4 PG (27.0-31.0) H Mean Corpuscular Hemoglobin Concent 32.8 G/DL (32.0-36.0) Red Cell Distribution Width 12.4 % (11.6-14.8) Platelet Count 246 K/UL (150-450) Mean Platelet Volume 8.2 FL (6.5-10.1) Neutrophils (%) (Auto) 83.2 % (45.0-75.0) H Lymphocytes (%) (Auto) 12.1 % (20.0-45.0) L Monocytes (%) (Auto) 4.2 % (1.0-10.0) Eosinophils (%) (Auto) 0.0 % (0.0-3.0) Basophils (%) (Auto) 0.5 % (0.0-2.0) Sodium Level 140 mEQ/L (135-145) Potassium Level 4.3 mEQ/L (3.4-4.9) Chloride Level 103 mEQ/L (98-107) Carbon Dioxide Level 24 mEQ/L (20-30) Anion Gap 13 (5-15) Blood Urea Nitrogen 22 mg/dL (7-23) Creatinine 1.3 mg/dL (0.7-1.2) H Estimat Glomerular Filtration Rate > 60 mL/min (>60) Glucose Level 149 mg/dL (74-106) H Calcium Level 9.6 mg/dL (8.6-10.2) Total Bilirubin < 0.2 mg/dL (0.0-1.2) Aspartate Amino Transf (AST/SGOT) 25 U/L (5-40) Alanine Aminotransferase (ALT/SGPT) 19 U/L (3-41) Alkaline Phosphatase 103 U/L (40-129) Total Protein 6.1 g/dL (6.6-8.7) L Albumin 4.2 g/dL (3.5-5.2) Globulin 1.9 g/dL Albumin/Globulin Ratio 2.2 (1.0-2.7) Thyroid Stimulating Hormone (TSH) 0.486 uIU/mL (0.300-4.500) ELIANA SWANN Nov 13, 2016 18:08
[2016-11-13] MEDS ORDERED: cloNIDine 0.2mg Tab ORAL PRN (18:15)
[2016-11-13] MEDS: Metoprolol 50mg tab ORAL SCH (18:32)
[2016-11-13 20:00] VITALS: BP 176/122
[2016-11-13] MEDS: cloNIDine 0.2mg Tab ORAL SCH (20:13)
--- NOTE | 2016-11-13 21:40 | Consultation ---
DATE OF CONSULTATION: 11/12/2016 NEUROLOGICAL CONSULTATION REQUESTING PHYSICIAN: Dennis Hoffman D.O. HISTORY OF PRESENT ILLNESS: The patient is a 51-year-old man, seen in neurological consultation to evaluate severe exacerbation of pain. The patient indicated last few days, as he feels exposed to very hot weather. He felt like he is getting paralyzed arms and legs. He developed severe pain, headaches, upper, mid and lower back, and upper and lower extremities. The patient was brought to emergency room, suspected to have a exacerbation of multiple sclerosis. The patient reported signing out from a rehabilitation facility only one month ago. Pain on admission described as 10/10. His vital signs included blood pressure of 179/102, respirations 16, heart rate 79 and afebrile. His initial laboratory work included a CBC study with WBC of 14.0 and hematocrit 53.9. Toxicology panel positive for opiates. Urinalysis 1+ glucose. Chemistry panel, blood sugar 111. Uric acid 7.7. CPK of 258, otherwise normal study including normal TSH. Coagulation panel was normal. Imaging studies included a CAT scan of the brain without contrast, this revealed no acute intracranial abnormalities with nonspecific white matter hypoattenuation, probably due to chronic small vessel disease. Chest x-ray, no acute findings. The patient was seen at this facility one month ago. He reported being diagnosed with multiple sclerosis in 2002. He was having treatment with immune modulators. As a result of MS, he developed weakness in left lower extremity and gait abnormality. He has a chronic severe low back pain, now on opiates. Most recent CAT scan of the lumbar spine revealed a multilevel degenerative joint disease. Previous MRI of the brain in 2014 revealed presence of chronic multiple sclerosis lesions. He has a history of hypertension and anxiety disorder with the treatment included Ativan, clonidine, hydrochlorothiazide, and ibuprofen. In addition, the patient is maintained on atenolol, aspirin, diphenhydramine, Cymbalta, Neurontin 300 mg t.i.d., hydrochlorothiazide, [place], Dilaudid, ibuprofen, prednisone 20 mg, zolpidem and MiraLAX. ALLERGIES: Ketorolac. SOCIAL HISTORY: Lives at home with his . FAMILY HISTORY: Noncontributory. REVIEW OF SYSTEMS: Severe headache, severe upper and mid lower back and upper and lower extremities Mood depressed and severe pain radiating to left lower extremity. No chest pain or palpitations. No respiratory problems. PHYSICAL EXAMINATION: GENERAL: The patient is well-developed and well-nourished man, not in acute distress, but somewhat uncomfortable with level of pain. He is lying in bed. VITAL SIGNS: Blood pressure 176/107 and temperature 97.0 degrees. HEENT: Head, normocephalic. There is no evidence of trauma. Eyes, ears, and throat are clear. NECK: Supple. No meningeal signs. MUSCULOSKELETAL: Palpable tenderness in both upper and lower extremities. Percussion tenderness in the lumbar region. Peripheral pulses 1+ symmetric. MENTAL STATUS: Alert and oriented x3 with no evidence of aphasia or apraxia. Cognitive function normal. Emotional, labile, tense, anxious, very concerned with his ongoing pain indicating that they gave him morphine sulfate and did not help his pain, so he would like to have Dilaudid higher doses. CRANIAL NERVE II: Pupils both responding to light and accommodation. Extraocular movement intact. No nystagmus. CRANIAL NERVE V: Normal corneal responses. CRANIAL NERVE VII: No facial asymmetry. CRANIAL NERVE VIII: Normal hearing. CRANIAL NERVES IX THROUGH XII: Tongue is in midline. Symmetric palate elevation. MOTOR EXAMINATION: Normal muscle tone. Strength both upper extremities, but reduced strength 4/5 in left lower extremity. Slightly elevated tone. Deep tendon reflexes 3+ on both upper and lower extremities. Plantar response is mute. SENSORY EXAMINATION: Normal to pinprick and light touch. Gait not tested. IMPRESSION: 1. New onset of severe generalized pain with episodes of "paralysis". Rule out multiple sclerosis exacerbation, rule out collagen vascular disease, and rule out fibromyalgia. 2. Lumbar discogenic disease with radiculopathy. 3. Chronic pain syndrome, opiate-dependent. 4. History of hypertension. 5. History of anxiety. RECOMMENDATION: 1. We will obtain MRI of the brain, cervical and thoracic spine to evaluate for presence of MS exacerbation, which would contribute to the pain. 2. Get collagen vascular profile. 3. Get PT/OT assessment. 4. Pain management to assist with opiate treatment. 5. Steroids to be reserved for exacerbation of MS. Thank you for allowing me to see this interesting patient in neurological consultation. Fletcher Scott M.D. DR: GLADYS JOB#: [id number] CC:
[2016-11-13] MEDS: Zolpidem 5mg tab ORAL PRN (22:49)
[2016-11-14] VITALS: BP 160/90
--- NOTE | 2016-11-14 00:30 | History and Physical Report ---
DATE OF ADMISSION: 11/12/2016 TIME SEEN: 2 p.m. CONSULTANTS: 1. Dayo Conrad M.D. 2. Fletcher Scott M.D. CHIEF COMPLAINT: MS exacerbation, acute pain and weakness. BRIEF HISTORY: This is a 51-year-old male who lives at home. He has a history of multiple sclerosis, came in with increased pain in low back and weakness, diagnosed the above, exacerbation of MS and pain, admitted to medical floor for further care. Calm in wheelchair, waiting MRI. Noncompliant. PAST MEDICAL HISTORY: Include MS, chronic pain, hypertension, and low back pain. PAST SURGICAL HISTORY: Unknown. MEDICATIONS: Dilaudid, Cymbalta, Neurontin, heparin, . ALLERGIES: Ketorolac. SOCIAL HISTORY: No smoking. No alcohol. No intravenous drug abuse. FAMILY HISTORY: Noncontributory. REVIEW OF SYSTEMS: No chest pain or short of breath. No nausea, vomiting, or diarrhea. PHYSICAL EXAMINATION: GENERAL: Calm in bed, oriented x3, in no acute distress. VITAL SIGNS: Temperature is 98 degrees, respirations 20, and blood pressure 190/123. CARDIOVASCULAR: No murmur. LUNGS: Distant and clear. ABDOMEN: Positive bowel sounds. Soft, nontender, and nondistended. EXTREMITIES: No cyanosis, clubbing, or edema. NEUROLOGIC: The patient is slightly weak x4, otherwise normal. LABORATORY AND DIAGNOSTIC DATA: Show white count of 15, otherwise CBC is normal. BMP show creatinine 1.3 and glucose 149. Urine tox is positive for opiates. Urinalysis is 1+ glucose. ASSESSMENT: 1. Multiple sclerosis exacerbation . 2. Excessive low back pain. 3. Diabetes. PLAN: 1. Continue premedications. 2. OT, PT and dietary evaluation. 3. Blood pressure and pain control. 4. Blood sugar control. 5. Dietary followup. 6. CBC and BMP in the morning. 7. Dr. Conrad, Dr. Scott, Dr. Scott, and Dr. Ferguson to consult. I will continue to follow this patient. Dennis Hoffman D.O. DR: KYLE JOB#: [id number] CC:
--- NOTE | 2016-11-14 01:15 | Consultation ---
DATE OF CONSULTATION: INFECTIOUS DISEASE CONSULTATION CONSULTING PHYSICIAN: Aditi Bustamante M.D. REQUESTING PHYSICIAN: Dennis Hoffman D.O. REASON FOR CONSULTATION: Sepsis and leukocytosis, rule out infection and recommendation for antibiotics treatment. HISTORY OF PRESENT ILLNESS: The patient is a 51-year-old male with past medical history significant for multiple sclerosis, coronary artery disease, hypertension, and TIA, was sent to the emergency room at [facility] for increased lower extremity pain. The patient felt as if his multiple sclerosis is flaring up probably from the heat. He was unable to walk because of the pain in his knee, which is mainly localized in the right. He denied any fever or chills. Denied any shortness of breath or cough. No chest pain. No nausea or vomiting. No diarrhea. The patient has been taking prednisone in the past, but stopped. He never took chemotherapy for his multiple sclerosis. In the emergency room, the patient was found to have leukocytosis. Temperature was 98.1 degrees and white cell count of 14,000. He received methylprednisolone by the emergency room physician and I was consulted by the primary provider for antibiotics treatment, possible sepsis due to elevated white count today. PAST MEDICAL HISTORY: Significant for coronary artery disease, hypertension, multiple sclerosis, transient ischemic attack, and left-sided weakness. PAST SURGICAL HISTORY: Negative. MEDICATIONS: The patient received prednisolone in the emergency room yesterday. For the rest of his medications, please refer to [facility]. ALLERGIES: He is allergic to ketorolac. SOCIAL HISTORY: He lives currently at home. No recent drugs, tobacco, or alcohol. FAMILY HISTORY: Noncontributory. REVIEW OF SYSTEMS: A 12-point of system reviewed were all negative apart from the one I mentioned in my history and physical. PHYSICAL EXAMINATION: VITAL SIGNS: Temperature 98 degrees, pulse 97, respirations 20, blood pressure 190/123, and saturation 96% on room air. GENERAL: A middle-aged male, lying in bed, awake, alert, and not in acute distress. HEENT: Normocephalic and atraumatic. Pupils reactive to light. Dry oral mucosa. NECK: Supple. No lymphadenopathy. CARDIOVASCULAR: Regular rate and rhythm. No murmur. LUNGS: Clear bilaterally. No wheezing or rhonchi. ABDOMEN: Soft, nontender, and nondistended. Positive bowel sounds. EXTREMITIES: No edema. No cyanosis. LABORATORY DATA: Labs showed white count of 3600, hemoglobin 16.4, and platelet count of 246,000. BUN of 17 and creatinine of 1.3. Glucose of 149. Urinalysis negative for infection. Toxicology positive for opiates. IMAGING: Thoracic spine MRI and cervical spine MRI both showed acute demyelinating process involving the cervical and thoracic spine suspicious for multiple sclerosis flare. ASSESSMENT AND RECOMMENDATIONS: 1. Leukocytosis, rule out sepsis or pneumonia. We will send blood culture and repeat chest x-ray. We will start Levaquin empiric treatment. 2. Multiple sclerosis with acute flare. Neurology is following. Further management as per Neurology. 3. Diabetes. Recommend tight glycemic control to keep blood glucose between 80 to 120. dAiti Bustamante M.D. DR: JOHN JOB#: [id number] CC: PIERCE
--- NOTE | 2016-11-14 02:30 | Consultation ---
DATE OF CONSULTATION: 11/13/2016 CARDIOLOGY CONSULTATION REFERRING PHYSICIAN: Dennis Hoffman D.O. REASON FOR CONSULTATION: Chest pain. HISTORY OF PRESENT ILLNESS: The patient is a 51-year-old, gentleman with history of hypertension and history of multiple sclerosis, came to the emergency room with increasing lower extremity pain. The patient also states that he has been having chest pain, but has been brought up by the heat. The patient's worst pain is in his right knee. The patient was admitted and a Cardiology consultation was obtained for further evaluation and management. PAST MEDICAL HISTORY: 1. Hypertension. 2. Multiple sclerosis. 3. History of atypical chest pain with nuclear stress test on last admission showed no evidence of ischemia. 4. Opiate dependence. 5. Migraine. MEDICATIONS: Include metoprolol 50 mg b.i.d., Norvasc 10 mg daily, losartan 50 mg b.i.d. and clonidine 0.3 mg p.r.n. FAMILY HISTORY: Noncontributory. REVIEW OF SYSTEMS: Thoroughly performed and was negative other than what was mentioned in history of present illness. PHYSICAL EXAMINATION: VITAL SIGNS: Blood pressure is 190/123, pulse is 97, respirations 18, and he is afebrile. HEAD AND NECK: Showed no JVD. LUNGS: Clear. CARDIOVASCULAR: Shows regular S1 and S2 with no gallop or murmur. ABDOMEN: Soft. EXTREMITIES: No pitting edema. LABORATORY DATA: Show white count of 15.7, hemoglobin 15.4, hematocrit 47, and platelet count of 246,000. Sodium is 140, potassium 4.3, BUN 22, creatinine 1.3, and glucose of 149. INR is 1. Urine tox is positive for opiates. ASSESSMENT AND PLAN: 1. Accelerated hypertension. I will resume the patient's clonidine as mentioned above 0.3 mg three times a day as well as losartan 50 mg twice a day, Norvasc 10 mg and metoprolol 50 mg twice a day. 2. Atypical chest pain. The patient's ejection fraction is 60%. Nuclear stress test on previous admission showed no ischemia. 3. Severe headache likely due to migraine as well as accelerated hypertension. 4. Multiple sclerosis. 5. Opiate dependence. Thank you very much, Dr. Hoffman, for allowing me to participate in the care of this patient. Please do not hesitate to contact me for any questions regarding my evaluation. Joni Ferguson M.D. DR: ISIDRO JOB#: [id number] CC:
[2016-11-14] MEDS: DiphenhydrAMINE 50mg/ml Inj IVP PRN ×4 (02:56→22:45)
[2016-11-14 04:00] VITALS: BP 157/83
[2016-11-14] MEDS: cloNIDine 0.2mg Tab ORAL SCH ×3 (05:41→22:44)
[2016-11-14 06:34] LABS: BASOPHILS % (AUTO) 1.5 % (0.0-2.0); EOSINOPHILS % (AUTO) 0.8 % (0.0-3.0); LYMPHOCYTES % (AUTO) 34.2 % (20.0-45.0); MEAN CORPUSCULAR HEMOGLOBIN 32.4 PG (27.0-31.0); MEAN CORPUSCULAR HGB CONC 33.2 G/DL (32.0-36.0); MEAN CORPUSCULAR VOLUME 98 FL (80-99); MEAN PLATELET VOLUME 8.4 FL (6.5-10.1); MONOCYTES % (AUTO) 6.6 % (1.0-10.0); PLATELET COUNT 194 K/UL (150-450); RED CELL DISTRIBUTION WIDTH 12.7 % (11.6-14.8)
[2016-11-14] MEDS: LORazepam Inj 2mg/ml 1ml IV PRN ×2 (06:50→20:41)
[2016-11-14 07:27] LABS: ANION GAP 8 (5-15); CALCIUM 9.3 mg/dL (8.6-10.2); CARBON DIOXIDE 28 mEQ/L (20-30); CHLORIDE 104 mEQ/L (98-107); CREATININE 1.3 mg/dL (0.7-1.2); GLOMERULAR FILTRATION RATE > 60 mL/min (>60); HEMOLYSIS 6; POTASSIUM 3.9 mEQ/L (3.4-4.9); SODIUM 140 mEQ/L (135-145)
[2016-11-14 08:27] VITALS: BP 142/91
--- NOTE | 2016-11-14 09:07 | General Progress Note ---
Assessment/Plan Assessment/Plan (1) Multiple Sclerosis (2) Neuropathic pain (3) Cervical DDD (4) Cervical spondylosis (5) Lumbar DDD (6) Lumbar spondylosis (7) Narcotic Dependency Patient will be changed to Dilaudid 2mg IV Q4H PRN severe pain and start Dilaudid 1mg IV Q6H PRN severe brkthrough pain, Ambien 10mg QHS and Neurontin 300mg TID. Pt was d/w Dr. Scott and he concurred. Subjective Date patient seen: Nov 14, 2016 Time patient seen: 07:15 - am Allergies: Coded Allergies: KETOROLAC (Verified Allergy, Severe, Anaphylaxis, 06/19/15) Subjective Constitutional: Reports: weakness, Denies: chills, diaphoresis, fever, malaise , no symptoms, other HEENT: Denies: blurred vision, double vision, ear discharge, ear pain, eye pain , mouth pain, mouth swelling, no symptoms, nose congestion, nose pain, other, tearing, throat pain, throat swelling Cardiovascular: Denies: chest pain, edema, irregular heart rate, lightheadedness, no symptoms, other, palpitations, syncope Respiratory: Denies: SOB at rest, SOB with excertion, cough, no symptoms, orthopnea, other, shortness of breath, sputum, stridor, wheezing Gastrointestinal/Abdominal: Denies: abdomen distended, abdominal pain, black stools, blood in stool, constipated, diarrhea, difficulty swallowing, nausea, no symptoms, other, poor appetite, poor fluid intake, rectal bleeding, tarry stools, vomiting Genitourinary: Denies: burning, discharge, flank pain, frequency, hematuria, incontinence, no symptoms, other, pain, urgency Neurologic/Psychiatric: Reports: weakness, Denies: anxiety, depressed, emotional problems, headache, no symptoms, numbness, other, paresthesia, pre- existing deficit, seizure, tingling, tremors Endocrine: Denies: excessive sweating, flushing, increased hunger, increased thirst, increased urine, intolerance to cold, intolerance to heat, no symptoms, other, unexplained weight gain, unexplained weight loss Hematologic/Lymphatic: Denies: anemia, easy bleeding, easy bruising, no symptoms, other Subjective He continues to c/o severe pain with minimal relief on the dilaudid. MRIs were reviewed with the patient. Objective Last 24 Hour Vital Signs Date Time Temp Pulse Resp B/P Pulse Ox O2 Delivery O2 Flow Rate FiO2 11/14/16 08:27 97.7 78 18 142/91 Nasal Cannula 11/14/16 05:41 157/83 11/14/16 04:00 98.2 88 19 157/83 97 Room Air 11/14/16 00:00 98.2 100 20 160/90 95 Room Air 11/13/16 20:13 148/113 11/13/16 20:00 96.8 96 19 176/122 93 Room Air 11/13/16 18:37 102 148/113 11/13/16 18:32 102 148/113 11/13/16 17:00 98.0 11/13/16 12:43 190/123 11/13/16 12:00 98.0 97 20 187/132 Room Air Intake and Output 11/13/16 11/14/16 19:00 07:00 Intake Total 800 ml 340 ml Balance 800 ml 340 ml Intake Oral 800 ml 240 ml IV Total 100 ml # Voids 4 2 Laboratory Tests 11/14/16 05:45: White Blood Count 10.0, Red Blood Count 4.60L, Hemoglobin 14.9, Hematocrit 44.9 , Mean Corpuscular Volume 98, Mean Corpuscular Hemoglobin 32.4H, Mean Corpuscular Hemoglobin Concent 33.2, Red Cell Distribution Width 12.7, Platelet Count 194, Mean Platelet Volume 8.4, Neutrophils (%) (Auto) 57.0, Lymphocytes (% ) (Auto) 34.2, Monocytes (%) (Auto) 6.6, Eosinophils (%) (Auto) 0.8, Basophils ( %) (Auto) 1.5, Sodium Level 140, Potassium Level 3.9, Chloride Level 104, Carbon Dioxide Level 28, Anion Gap 8, Blood Urea Nitrogen 19, Creatinine 1.3H, Estimat Glomerular Filtration Rate > 60, Glucose Level 136H, Calcium Level 9.3 Height (Feet): 6 Height (Inches): 0.00 Weight (Pounds): 220 Objective General Appearance: no apparent distress, alert EENT: PERRL/EOMI, normal ENT inspection Neck: non-tender, normal alignment Cardiovascular: normal peripheral pulses, normal rate, regular rhythm Respiratory/Chest: lungs clear, normal breath sounds Abdomen: non tender, soft Extremities: non-tender Edema: no edema noted Arm (L), no edema noted Arm (R), no edema noted Leg (L), no edema noted Leg (R), no edema noted Pedal (L), no edema noted Pedal (R), no edema noted Generalized Neurologic: alert, oriented x 3 Skin: warm/dry MRI of Cervical spine: Findings: Bony alignment is normal. Vertebral body heights are preserved vertebral body marrow signal is normal. Focus of increased T2 signal at the level of the foramen magnum is again demonstrated, unchanged. Focus of increased T2 signal posterior to the midportion of the C2 vertebral body is less conspicuous than on the prior study. Second focus of increased cord signal at the level of the C2-3 disc is new or more conspicuous than on the prior study. There is cord signal abnormality extending from C7-T1, more conspicuous on the axial than on the sagittal images. It is not clearly evident previously. None of these lesions enhance on the postcontrast images. No unusual enhancement is evident elsewhere. At C2-3, there is minimal circumferential annular bulge. The disc space is preserved. There is severe narrowing of the right neural foramen, which has progressed considerably since the prior study. At C3-4, there is mild circumferential annular bulge which does not significantly narrow the spinal canal. The disc space is preserved. There is moderate right and severe left neural foraminal stenosis. That on the left has progressed considerably since the previous study. At C4-5, there is minimal degenerative disc narrowing. There is circumferential annular bulge, as well as right paracentral disc protrusion. These are much more apparent than on the prior exam. This may be in part due to improved imaging quality on the current study, but the right paracentral disc protrusion appears to definite represent a new finding. There is some associated high signal within the disc, consistent with annular fissure. This impinges to some extent on the right side of the cord and on the lateral recess. There is also severe bilateral neural foraminal stenosis, which appears to progressed since the previous study. At C5-6, no significant disc bulge or protrusion. There is degenerative disc narrowing.. There is mild right and severe left neural foraminal stenosis, which appears to have progressed since the previous study. At C6-7, there is degenerative disc narrowing. There is mild circumferential annular bulge which does not appear to significantly compromise the spinal canal. There is moderate right and mild left neural foraminal stenosis. At C7-T1, no significant disc bulge or protrusion, spinal stenosis, or neural foraminal narrowing. MRI Thoracic spine Findings: Vertebral body alignment is preserved. Vertebral body marrow signal is preserved. Again demonstrated is mild old compression fracture deformity of the T12 superior endplate and associated Schmorl's node. Multiple foci of cord signal abnormality are now evident. Some of these are subtle and equivocal. There is abnormal cord signal at the T1 level, in retrospect possibly evident on the prior axial images, but more evident currently. Abnormal cord signal is seen at the T7 level on the sagittal images, not clearly evident on the axial per the previous images. Abnormal cord signal is seen at T8 level on axial and sagittal images, area obscured by artifact on the previous axial images, not clearly evident on the previous sagittal images. Small central focus of high signal is seen at T10, not evident previously. There is suggestion of contrast enhancement of the T10 lesion on the sagittal images. No other definite contrast enhancement is demonstrated. Again demonstrated is an extruded disc fragment at T7-T8 on the left. This impinges slightly on the thecal sac, impinges on the left lateral recess. No significant neural foraminal compromise demonstrated. No other significant disc bulge or protrusion, spinal stenosis, or neural foraminal stenosis is demonstrated. Some enhancement of the T12 superior endplate Schmorl's node is evident. Is actually considerably more striking than on the prior study. No other unusual contrast enhancement is demonstrated. MAYCOL WILEY Nov 14, 2016 09:07
[2016-11-14] MEDS: Metoprolol 50mg tab ORAL SCH ×2 (09:14→20:41)
[2016-11-14] MEDS: Dyna-Hex 2% Top Sol 8oz TOPIC SCH (09:15)
[2016-11-14] MEDS: Heparin 5000 units/ml inj SUBQ SCH ×2 (09:15→20:42)
--- NOTE | 2016-11-14 10:09 | Diagnostic Imaging Report ---
Indications: Chest pain Technique: Portable AP chest Findings: Comparison: 11/12/2016 Cardiac silhouette remains normal in size. Pulmonary vasculature remains within normal limits. Lungs and pleura remain clear. PICC has been placed via left upper extremity, tip in region of proximal aspect of superior vena cava. IMPRESSION: No evidence of acute disease, unchanged PICC placed, adequately positioned
[2016-11-14] MEDS: HYDROmorphone 1mg/ml Carpuject IVP PRN ×3 (11:20→23:40)
[2016-11-14 12:34] VITALS: BP 154/91
--- NOTE | 2016-11-14 13:34 | Neurology Progress Note ---
Interim History Interim History ROS Limited/Unobtainable: No Complaints: severe pain all body head unstable gait Events: no chenge on opiates Objective Physical Exam Last Vital Signs Date Time Temp Pulse Resp B/P Pulse Ox O2 Delivery O2 Flow Rate FiO2 11/14/16 12:34 97.2 76 18 154/91 97 Nasal Cannula Laboratory Tests Test 11/14/16 05:45 White Blood Count 10.0 K/UL (4.8-10.8) Red Blood Count 4.60 M/UL (4.70-6.10) L Hemoglobin 14.9 G/DL (14.2-18.0) Hematocrit 44.9 % (42.0-52.0) Mean Corpuscular Volume 98 FL (80-99) Mean Corpuscular Hemoglobin 32.4 PG (27.0-31.0) H Mean Corpuscular Hemoglobin Concent 33.2 G/DL (32.0-36.0) Red Cell Distribution Width 12.7 % (11.6-14.8) Platelet Count 194 K/UL (150-450) Mean Platelet Volume 8.4 FL (6.5-10.1) Neutrophils (%) (Auto) 57.0 % (45.0-75.0) Lymphocytes (%) (Auto) 34.2 % (20.0-45.0) Monocytes (%) (Auto) 6.6 % (1.0-10.0) Eosinophils (%) (Auto) 0.8 % (0.0-3.0) Basophils (%) (Auto) 1.5 % (0.0-2.0) Sodium Level 140 mEQ/L (135-145) Potassium Level 3.9 mEQ/L (3.4-4.9) Chloride Level 104 mEQ/L (98-107) Carbon Dioxide Level 28 mEQ/L (20-30) Anion Gap 8 (5-15) Blood Urea Nitrogen 19 mg/dL (7-23) Creatinine 1.3 mg/dL (0.7-1.2) H Estimat Glomerular Filtration Rate > 60 mL/min (>60) Glucose Level 136 mg/dL (74-106) H Calcium Level 9.3 mg/dL (8.6-10.2) General: well developed, well nourished, no acute distress Head: normocophalic, atraumatic Neck: no rigidity Neurologic Exam Mental Status: awake, alert, oriented x4, normal cognition Speech: normal speech, no dysarthia Language: normal language, no aphasia Cranial Nerve II: fundus normal, visual keller, no papilledema Cranial Nerves III, IV, : PERRLA, EOMI, pupils Cranial Nerve V: normal facial sensations, temporales function normal, masseters function normal, pterygoids function normal Cranial Nerve VII: no facial asymmetry, normal facial expressions Cranial Nerve VIII: normal hearing, no nystagmus Cranial Nerve IX: normal palate elevation, gag response Cranial Nerve X: no voice hoarseness Cranial Nerve XI: SCM symmetric, trapezii function normal Cranial Nerve XII: tongue midline, no tongue atrophy/fasciculations Motor System: other - L leg 4/5, spastic Sensory: normal pinprick Coordination: normal finger to nose bilaterally Deep Tendon Reflexes: 0 ankle (R), 0 bicep (L), 0 bicep (R), 0 brachioradialis (L), 0 brachioradialis (R), 0 knee (R), 0 tricep (L), 0 tricep (R), 2+ ankle (L) , 2+ knee (L) Reflexes: extensor plantar (L), mute plantar (R) Gait: other - limping to L unstable Impression/Recommendations Problems: (1) Relapsing progressive multiple sclerosis (2) Opiate dependence (3) HTN (hypertension) (4) Anxiety disorder (5) Accelerated hypertension Status: unchanged Recommendations patient examined, orders given # [id number] MRI brain [id number]--done cont pain mgmt start today on [id number] x2 < patient will sign out tomorrow night> rec to start on GYLENIA as outpatient patient tried chemo x 2 years. MARKOS CROOKS Nov 14, 2016 13:34
--- NOTE | 2016-11-14 14:23 | Infectious Diseases Prog Note ---
Assessment/Plan Problems: (1) Leukocytosis Assessment & Plan: suspect due to steroids, with no evidence of pneumonia, or sepsis, await blood culture , will stop levaquin empirically, monitor WBC (2) Multiple sclerosis Assessment & Plan: with acute flare, on pulse steroids , neurology is following (3) Diabetes Assessment & Plan: recommend tight glycemic control to keep blood glucose between 80-120 Subjective Constitutional: Reports: fatigue HEENT: Reports: no symptoms Respiratory: Reports: no symptoms Breasts: Reports: no symptoms Cardiovascular: Reports: no symptoms Gastrointestinal/Abdominal: Reports: no symptoms Genitourinary: Reports: frequency Neurologic: Reports: no symptoms Psychiatric: Reports: no symptoms Skin: Reports: no symptoms Endocrine: Reports: no symptoms Hematologic: Reports: no symptoms Musculoskeletal: Reports: pain Allergies: Coded Allergies: KETOROLAC (Verified Allergy, Severe, Anaphylaxis, 06/19/15) Objective Vital Signs Last 24 Hour Vital Signs Date Time Temp Pulse Resp B/P Pulse Ox O2 Delivery O2 Flow Rate FiO2 11/14/16 12:34 97.2 76 18 154/91 97 Nasal Cannula 11/14/16 09:14 78 142/91 11/14/16 09:14 78 142/91 11/14/16 08:27 97.7 78 18 142/91 Nasal Cannula 11/14/16 05:41 157/83 11/14/16 04:00 98.2 88 19 157/83 97 Room Air 11/14/16 00:00 98.2 100 20 160/90 95 Room Air 11/13/16 20:13 148/113 11/13/16 20:00 96.8 96 19 176/122 93 Room Air 11/13/16 18:37 102 148/113 11/13/16 18:32 102 148/113 11/13/16 17:00 98.0 Height (Feet): 6 Height (Inches): 0.00 Weight (Pounds): 220 General Appearance: WD/WN, no acute distress HEENT: normocephalic, atraumatic, anicteric, mucous membranes moist, PERRL, pharynx normal, supple, no JVD Respiratory/Chest: chest wall non-tender, lungs clear, normal breath sounds, no respiratory distress, no accessory muscle use Cardiovascular: normal peripheral pulses, normal rate, regular rhythm, no gallop/murmur, no JVD Abdomen: normal bowel sounds, soft, non tender, no organomegaly, non distended , no mass, no scars Extremities: no cyanosis, no clubbing Skin: no rash, no lesions, no ulcers Neurologic/Psychiatric: health safety specialist II-XII grossly normal, alert, oriented x 3 Musculoskeletal: normal muscle bulk, no effusion Laboratory Tests Test 11/14/16 05:45 White Blood Count 10.0 K/UL (4.8-10.8) Red Blood Count 4.60 M/UL (4.70-6.10) L Hemoglobin 14.9 G/DL (14.2-18.0) Hematocrit 44.9 % (42.0-52.0) Mean Corpuscular Volume 98 FL (80-99) Mean Corpuscular Hemoglobin 32.4 PG (27.0-31.0) H Mean Corpuscular Hemoglobin Concent 33.2 G/DL (32.0-36.0) Red Cell Distribution Width 12.7 % (11.6-14.8) Platelet Count 194 K/UL (150-450) Mean Platelet Volume 8.4 FL (6.5-10.1) Neutrophils (%) (Auto) 57.0 % (45.0-75.0) Lymphocytes (%) (Auto) 34.2 % (20.0-45.0) Monocytes (%) (Auto) 6.6 % (1.0-10.0) Eosinophils (%) (Auto) 0.8 % (0.0-3.0) Basophils (%) (Auto) 1.5 % (0.0-2.0) Sodium Level 140 mEQ/L (135-145) Potassium Level 3.9 mEQ/L (3.4-4.9) Chloride Level 104 mEQ/L (98-107) Carbon Dioxide Level 28 mEQ/L (20-30) Anion Gap 8 (5-15) Blood Urea Nitrogen 19 mg/dL (7-23) Creatinine 1.3 mg/dL (0.7-1.2) H Estimat Glomerular Filtration Rate > 60 mL/min (>60) Glucose Level 136 mg/dL (74-106) H Calcium Level 9.3 mg/dL (8.6-10.2) Current Medications Medications (Trade) Dose Ordered Sig/Jessica Route PRN Reason Start Time Stop Time Status Last Admin Dose Admin Acetaminophen (Tylenol) 650 mg Q4H PRN ORAL fever 11/12/16 15:00 12/12/16 14:59 Al Hydroxide/Mg Hydroxide (Mylanta II) 30 ml Q6H PRN ORAL dyspepsia 11/12/16 15:00 12/12/16 14:59 Amlodipine Besylate (Norvasc) 10 mg DAILY ORAL 11/13/16 18:30 12/13/16 18:29 11/14/16 09:14 Chlorhexidine Gluconate 1 applic 1 applic DAILY TOPIC 11/13/16 09:00 12/13/16 08:59 11/14/16 09:15 Clonidine HCl (Catapres) 0.1 mg Q8H PRN ORAL Systolic BP greater than 160 11/12/16 19:30 12/12/16 19:29 11/13/16 12:43 Clonidine HCl (Catapres) 0.2 mg EVERY 8 HOURS ORAL 11/13/16 22:00 12/13/16 21:59 11/14/16 05:41 Clonidine HCl (Catapres) 0.2 mg Q2H PRN ORAL hypertension 11/13/16 18:15 12/13/16 18:14 Dextrose (Dextrose 50%) STAT PRN IV Hypoglycemia 11/12/16 15:00 12/12/16 14:59 Diphenhydramine HCl (Benadryl) 25 mg Q4H PRN IVP Itching 11/12/16 20:30 12/12/16 20:29 11/14/16 11:30 Duloxetine HCl (Cymbalta) 40 mg DAILY ORAL 11/13/16 09:00 12/13/16 08:59 11/14/16 09:14 Gabapentin (Neurontin) 300 mg THREE TIMES A DAY ORAL 11/14/16 09:15 12/14/16 09:14 11/14/16 09:23 Heparin Sodium (Porcine) (Heparin 5000 units/ml) 5,000 units EVERY 12 HOURS SUBQ 11/12/16 21:00 12/12/16 20:59 11/14/16 09:15 Hydromorphone HCl (Dilaudid) 1 mg Q6H PRN IVP SEVERE BREAKTHROUGH PAIN 11/14/16 09:15 11/21/16 09:14 11/14/16 11:20 Hydromorphone HCl (Dilaudid) 2 mg Q4H PRN IVP Severe Pain (Pain Scale 7-10) 11/14/16 10:00 11/21/16 09:59 11/14/16 13:46 Levofloxacin (Levaquin) 100 ml @ 100 mls/hr Q24H IVPB 11/13/16 20:00 11/20/16 19:59 11/13/16 20:15 Lorazepam (Ativan 2mg/ml 1ml) 0.5 mg Q4H PRN IV For Anxiety 11/12/16 15:00 11/19/16 14:59 11/14/16 06:50 Methylprednisolone Sodium Succinate (Solu-MEDROL) 125 mg DAILY IVP 11/14/16 14:00 12/14/16 13:59 Metoprolol Tartrate (Lopressor) 50 mg Q12HR ORAL 11/13/16 18:30 12/13/16 18:29 11/14/16 09:14 Ondansetron HCl (Zofran) 4 mg Q6H PRN IVP Nausea & Vomiting 11/12/16 15:00 12/12/16 14:59 11/13/16 13:13 Polyethylene Glycol (Miralax) 17 gm HSPRN PRN ORAL Constipation 11/12/16 15:00 12/12/16 14:59 Zolpidem Tartrate (Ambien) 5 mg HSPRN PRN ORAL Insomnia 11/14/16 21:00 12/14/16 20:59 Aditi Bustamante M.D. Nov 14, 2016 14:23
--- NOTE | 2016-11-14 14:34 | Pulmonology Progress Note ---
Assessment/Plan Problems: (1) Intractable pain (2) Multiple sclerosis, secondary progressive (3) Hypertension (4) Diabetes (5) Leukocytosis Subjective Allergies: Coded Allergies: KETOROLAC (Verified Allergy, Severe, Anaphylaxis, 06/19/15) Objective Last 24 Hour Vital Signs Date Time Temp Pulse Resp B/P Pulse Ox O2 Delivery O2 Flow Rate FiO2 11/14/16 12:34 97.2 76 18 154/91 97 Nasal Cannula 11/14/16 09:14 78 142/91 11/14/16 09:14 78 142/91 11/14/16 08:27 97.7 78 18 142/91 Nasal Cannula 11/14/16 05:41 157/83 11/14/16 04:00 98.2 88 19 157/83 97 Room Air 11/14/16 00:00 98.2 100 20 160/90 95 Room Air 11/13/16 20:13 148/113 11/13/16 20:00 96.8 96 19 176/122 93 Room Air 11/13/16 18:37 102 148/113 11/13/16 18:32 102 148/113 11/13/16 17:00 98.0 Intake and Output 11/13/16 11/14/16 19:00 07:00 Intake Total 800 ml 340 ml Balance 800 ml 340 ml Intake Oral 800 ml 240 ml IV Total 100 ml # Voids 4 2 Laboratory Tests 11/14/16 05:45: White Blood Count 10.0, Red Blood Count 4.60L, Hemoglobin 14.9, Hematocrit 44.9 , Mean Corpuscular Volume 98, Mean Corpuscular Hemoglobin 32.4H, Mean Corpuscular Hemoglobin Concent 33.2, Red Cell Distribution Width 12.7, Platelet Count 194, Mean Platelet Volume 8.4, Neutrophils (%) (Auto) 57.0, Lymphocytes (% ) (Auto) 34.2, Monocytes (%) (Auto) 6.6, Eosinophils (%) (Auto) 0.8, Basophils ( %) (Auto) 1.5, Sodium Level 140, Potassium Level 3.9, Chloride Level 104, Carbon Dioxide Level 28, Anion Gap 8, Blood Urea Nitrogen 19, Creatinine 1.3H, Estimat Glomerular Filtration Rate > 60, Glucose Level 136H, Calcium Level 9.3 Current Medications Medications (Trade) Dose Ordered Sig/Jessica Route PRN Reason Start Time Stop Time Status Last Admin Dose Admin Acetaminophen (Tylenol) 650 mg Q4H PRN ORAL fever 11/12/16 15:00 12/12/16 14:59 Al Hydroxide/Mg Hydroxide (Mylanta II) 30 ml Q6H PRN ORAL dyspepsia 11/12/16 15:00 12/12/16 14:59 Amlodipine Besylate (Norvasc) 10 mg DAILY ORAL 11/13/16 18:30 12/13/16 18:29 11/14/16 09:14 Chlorhexidine Gluconate (Jaqueline-Hex 2%) 1 applic DAILY TOPIC 11/13/16 09:00 12/13/16 08:59 11/14/16 09:15 Clonidine HCl (Catapres) 0.1 mg Q8H PRN ORAL Systolic BP greater than 160 11/12/16 19:30 12/12/16 19:29 11/13/16 12:43 Clonidine HCl (Catapres) 0.2 mg EVERY 8 HOURS ORAL 11/13/16 22:00 12/13/16 21:59 11/14/16 05:41 Clonidine HCl (Catapres) 0.2 mg Q2H PRN ORAL hypertension 11/13/16 18:15 12/13/16 18:14 Dextrose (Dextrose 50%) STAT PRN IV Hypoglycemia 11/12/16 15:00 12/12/16 14:59 Diphenhydramine HCl (Benadryl) 25 mg Q4H PRN IVP Itching 11/12/16 20:30 12/12/16 20:29 11/14/16 11:30 Duloxetine HCl (Cymbalta) 40 mg DAILY ORAL 11/13/16 09:00 12/13/16 08:59 11/14/16 09:14 Gabapentin (Neurontin) 300 mg THREE TIMES A DAY ORAL 11/14/16 09:15 12/14/16 09:14 11/14/16 09:23 Heparin Sodium (Porcine) (Heparin 5000 units/ml) 5,000 units EVERY 12 HOURS SUBQ 11/12/16 21:00 12/12/16 20:59 11/14/16 09:15 Hydromorphone HCl (Dilaudid) 1 mg Q6H PRN IVP SEVERE BREAKTHROUGH PAIN 11/14/16 09:15 11/21/16 09:14 11/14/16 11:20 Hydromorphone HCl (Dilaudid) 2 mg Q4H PRN IVP Severe Pain (Pain Scale 7-10) 11/14/16 10:00 11/21/16 09:59 11/14/16 13:46 Lorazepam (Ativan 2mg/ml 1ml) 0.5 mg Q4H PRN IV For Anxiety 11/12/16 15:00 11/19/16 14:59 11/14/16 06:50 Methylprednisolone Sodium Succinate (Solu-MEDROL) 125 mg DAILY IVP 11/14/16 14:00 12/14/16 13:59 Metoprolol Tartrate (Lopressor) 50 mg Q12HR ORAL 11/13/16 18:30 12/13/16 18:29 11/14/16 09:14 Ondansetron HCl (Zofran) 4 mg Q6H PRN IVP Nausea & Vomiting 11/12/16 15:00 12/12/16 14:59 11/13/16 13:13 Polyethylene Glycol (Miralax) 17 gm HSPRN PRN ORAL Constipation 11/12/16 15:00 12/12/16 14:59 Zolpidem Tartrate (Ambien) 5 mg HSPRN PRN ORAL Insomnia 11/14/16 21:00 12/14/16 20:59 JOSHUA HARRIS Nov 14, 2016 14:34
--- NOTE | 2016-11-14 15:10 | General Progress Note ---
Assessment/Plan Problem List: (1) Multiple sclerosis, relapsing-remitting ICD Codes: G35 - Relapsing remitting multiple sclerosis SNOMED: 082596324 (2) Intractable pain ICD Codes: R52 - Pain, unspecified SNOMED: 66475415 (3) Hypertension ICD Codes: I10 - Essential (primary) hypertension SNOMED: 78119884 Status: stable, progressing, tolerating diet Assessment/Plan ot pt diet pain control cbc bmp am Subjective Constitutional: Reports: weakness Allergies: Coded Allergies: KETOROLAC (Verified Allergy, Severe, Anaphylaxis, 06/19/15) All Systems: reviewed and negative except above Subjective sl anxious in bed Objective Last 24 Hour Vital Signs Date Time Temp Pulse Resp B/P Pulse Ox O2 Delivery O2 Flow Rate FiO2 11/14/16 12:34 97.2 76 18 154/91 97 Nasal Cannula 11/14/16 09:14 78 142/91 11/14/16 09:14 78 142/91 11/14/16 08:27 97.7 78 18 142/91 Nasal Cannula 11/14/16 05:41 157/83 11/14/16 04:00 98.2 88 19 157/83 97 Room Air 11/14/16 00:00 98.2 100 20 160/90 95 Room Air 11/13/16 20:13 148/113 11/13/16 20:00 96.8 96 19 176/122 93 Room Air 11/13/16 18:37 102 148/113 11/13/16 18:32 102 148/113 11/13/16 17:00 98.0 Intake and Output 11/13/16 11/14/16 19:00 07:00 Intake Total 800 ml 340 ml Balance 800 ml 340 ml Intake Oral 800 ml 240 ml IV Total 100 ml # Voids 4 2 Laboratory Tests 11/14/16 05:45: White Blood Count 10.0, Red Blood Count 4.60L, Hemoglobin 14.9, Hematocrit 44.9 , Mean Corpuscular Volume 98, Mean Corpuscular Hemoglobin 32.4H, Mean Corpuscular Hemoglobin Concent 33.2, Red Cell Distribution Width 12.7, Platelet Count 194, Mean Platelet Volume 8.4, Neutrophils (%) (Auto) 57.0, Lymphocytes (% ) (Auto) 34.2, Monocytes (%) (Auto) 6.6, Eosinophils (%) (Auto) 0.8, Basophils ( %) (Auto) 1.5, Sodium Level 140, Potassium Level 3.9, Chloride Level 104, Carbon Dioxide Level 28, Anion Gap 8, Blood Urea Nitrogen 19, Creatinine 1.3H, Estimat Glomerular Filtration Rate > 60, Glucose Level 136H, Calcium Level 9.3 Height (Feet): 6 Height (Inches): 0.00 Weight (Pounds): 220 General Appearance: alert EENT: normal ENT inspection Neck: normal alignment Cardiovascular: normal peripheral pulses, normal rate, regular rhythm Respiratory/Chest: chest wall non-tender, lungs clear, normal breath sounds Abdomen: normal bowel sounds, non tender, soft Extremities: normal range of motion, non-tender, normal inspection Neurologic: motor weakness Skin: normal pigmentation, warm/dry BARBARA RAGLAND Nov 14, 2016 15:10
[2016-11-14] MEDS: Solu-MEDROL 125mg Inj IVP SCH (15:17)
[2016-11-14 16:00] VITALS: BP 137/97
[2016-11-14] MEDS ORDERED: Tubing IV Secondary IV ONE (18:12)
[2016-11-14] MEDS ORDERED: NS 550ML IV ONE (18:12)
[2016-11-14 20:00] VITALS: BP 156/98
[2016-11-14] MEDS ORDERED: Zolpidem 5mg tab ORAL PRN (21:00)
[2016-11-15] VITALS (7 sets, daily range): BP systolic 142–195; BP diastolic 86–121
[2016-11-15] MEDS: LORazepam Inj 2mg/ml 1ml IV PRN ×3 (03:00→12:55)
[2016-11-15] MEDS: DiphenhydrAMINE 50mg/ml Inj IVP PRN ×4 (04:50→16:10)
[2016-11-15] MEDS: cloNIDine 0.2mg Tab ORAL SCH ×2 (05:21→13:42)
[2016-11-15] MEDS: HYDROmorphone 1mg/ml Carpuject IVP PRN ×2 (05:51→12:02)
[2016-11-15 06:19] LABS: BASOPHILS % (AUTO) 0.5 % (0.0-2.0); EOSINOPHILS % (AUTO) 0.1 % (0.0-3.0); MEAN CORPUSCULAR HEMOGLOBIN 32.4 PG (27.0-31.0); MEAN CORPUSCULAR HGB CONC 33.6 G/DL (32.0-36.0); MEAN CORPUSCULAR VOLUME 97 FL (80-99); MEAN PLATELET VOLUME 8.6 FL (6.5-10.1); MONOCYTES % (AUTO) 4.8 % (1.0-10.0); NEUTROPHILS % (AUTO) 83.6 % (45.0-75.0); PLATELET COUNT 172 K/UL (150-450); RED BLOOD COUNT 4.49 M/UL (4.70-6.10); RED CELL DISTRIBUTION WIDTH 12.4 % (11.6-14.8); WHITE BLOOD COUNT 7.9 K/UL (4.8-10.8)
[2016-11-15 06:53] LABS: ANION GAP 14 (5-15); CALCIUM 9.4 mg/dL (8.6-10.2); CARBON DIOXIDE 25 mEQ/L (20-30); CHLORIDE 101 mEQ/L (98-107); CREATININE 1.1 mg/dL (0.7-1.2); GLOMERULAR FILTRATION RATE > 60 mL/min (>60); HEMOLYSIS 7; POTASSIUM 4.7 mEQ/L (3.4-4.9); SODIUM 140 mEQ/L (135-145)
[2016-11-15] MEDS: Dyna-Hex 2% Top Sol 8oz TOPIC SCH (08:15)
[2016-11-15] MEDS: Solu-MEDROL 125mg Inj IVP SCH (08:15)
--- NOTE | 2016-11-15 08:23 | Pulmonology Progress Note ---
Assessment/Plan Assessment/Plan ASSESSMENT MS exacerbation HTN urgency DM atypical chest pain chronic pain syndrome, opiate dependency severe TRUJILLO, lumbar spondylosis with radiculopathy lumbar DDD cervical DDD cervical spondylosis PLAN OF CARE NS floor neuro follows MRI C and T spine c/w acute demyelination process, likely MS exacerbation, started on steroids as outpatient neuro recommended to start on Gylenia PT/OT DVT prophylaxis fall precaution ID follows no evidence of PNA or sepsis, blood cx preliminary negative , monitor counts abx stopped as per ID BP management with BB, CCB and Clonidine, cardio follows regimen optimized BP better severe TRUJILLO was likely 2 to HTN urgency, resolved O2 HHN prn CXR no acute cardiopulmonary disease pain management pain specialist follows patient will be leaving tonight, will need oral steroids as per neuro upon dc case discussed and evaluated by supervising physician Subjective Allergies: Coded Allergies: KETOROLAC (Verified Allergy, Severe, Anaphylaxis, 06/19/15) Subjective feeling better after steroids started no chest pain, no SOB ambulates with cane Objective Last 24 Hour Vital Signs Date Time Temp Pulse Resp B/P Pulse Ox O2 Delivery O2 Flow Rate FiO2 11/15/16 05:21 153/89 11/15/16 03:52 97.2 79 18 142/86 96 Room Air 11/15/16 00:00 96.6 88 18 152/109 97 Room Air 11/14/16 22:44 144/106 11/14/16 20:41 93 156/98 11/14/16 20:23 Nasal Cannula 2.0 28 11/14/16 20:22 97 Nasal Cannula 2.0 28 11/14/16 20:00 97.7 93 20 156/98 96 Room Air 11/14/16 16:00 97.5 82 18 137/97 95 Nasal Cannula 11/14/16 15:17 137/97 11/14/16 12:34 97.2 76 18 154/91 97 Nasal Cannula 11/14/16 09:14 78 142/91 11/14/16 09:14 78 142/91 11/14/16 08:27 97.7 78 18 142/91 Nasal Cannula Intake and Output 11/14/16 11/15/16 19:00 07:00 Intake Total 1360 ml Balance 1360 ml Intake Oral 1360 ml # Voids 5 General Appearance: WD/WN, no acute distress HEENT: normocephalic, atraumatic, anicteric Respiratory/Chest: lungs clear, no respiratory distress, no accessory muscle use Cardiovascular: normal rate, regular rhythm, no JVD Abdomen: normal bowel sounds, soft, non tender, non distended Genitourinary: normal external genitalia Extremities: no edema, pedal pulses normal Neurologic/Psychiatric: abnormal gait - ambulates with cane , alert, oriented x 3, responsive Musculoskeletal: normal muscle bulk Microbiology Date/Time Source Procedure Growth Status 11/14/16 03:30 Blood Blood Culture - Preliminary NO GROWTH AFTER 24 HOURS Resulted 11/14/16 04:00 Arm Left Blood Culture - Preliminary NO GROWTH AFTER 24 HOURS Resulted Laboratory Tests 11/15/16 05:00: White Blood Count 7.9, Red Blood Count 4.49L, Hemoglobin 14.5, Hematocrit 43.4, Mean Corpuscular Volume 97, Mean Corpuscular Hemoglobin 32.4H, Mean Corpuscular Hemoglobin Concent 33.6, Red Cell Distribution Width 12.4, Platelet Count 172, Mean Platelet Volume 8.6, Neutrophils (%) (Auto) 83.6H, Lymphocytes (%) (Auto) 11.0L, Monocytes (%) (Auto) 4.8, Eosinophils (%) (Auto) 0.1, Basophils (%) (Auto ) 0.5, Sodium Level 140, Potassium Level 4.7, Chloride Level 101, Carbon Dioxide Level 25, Anion Gap 14, Blood Urea Nitrogen 17, Creatinine 1.1, Estimat Glomerular Filtration Rate > 60, Glucose Level 237#H, Calcium Level 9.4 Current Medications Medications (Trade) Dose Ordered Sig/Jessica Route PRN Reason Start Time Stop Time Status Last Admin Dose Admin Acetaminophen (Tylenol) 650 mg Q4H PRN ORAL fever 11/12/16 15:00 12/12/16 14:59 Al Hydroxide/Mg Hydroxide (Mylanta II) 30 ml Q6H PRN ORAL dyspepsia 11/12/16 15:00 12/12/16 14:59 Amlodipine Besylate (Norvasc) 10 mg DAILY ORAL 11/13/16 18:30 12/13/16 18:29 11/14/16 09:14 Chlorhexidine Gluconate (Jaqueline-Hex 2%) 1 applic DAILY TOPIC 11/13/16 09:00 12/13/16 08:59 11/14/16 09:15 Clonidine HCl (Catapres) 0.1 mg Q8H PRN ORAL Systolic BP greater than 160 11/12/16 19:30 12/12/16 19:29 11/13/16 12:43 Clonidine HCl (Catapres) 0.2 mg EVERY 8 HOURS ORAL 11/13/16 22:00 12/13/16 21:59 11/15/16 05:21 Clonidine HCl (Catapres) 0.2 mg Q2H PRN ORAL hypertension 11/13/16 18:15 12/13/16 18:14 Dextrose (Dextrose 50%) STAT PRN IV Hypoglycemia 11/12/16 15:00 12/12/16 14:59 Diphenhydramine HCl (Benadryl) 25 mg Q4H PRN IVP Itching 11/12/16 20:30 12/12/16 20:29 11/15/16 04:50 Duloxetine HCl (Cymbalta) 40 mg DAILY ORAL 11/13/16 09:00 12/13/16 08:59 11/14/16 09:14 Gabapentin (Neurontin) 300 mg THREE TIMES A DAY ORAL 11/14/16 09:15 12/14/16 09:14 11/14/16 17:35 Heparin Sodium (Porcine) (Heparin 5000 units/ml) 5,000 units EVERY 12 HOURS SUBQ 11/12/16 21:00 12/12/16 20:59 11/14/16 20:42 Hydromorphone HCl (Dilaudid) 1 mg Q6H PRN IVP SEVERE BREAKTHROUGH PAIN 11/14/16 09:15 11/21/16 09:14 11/15/16 05:51 Hydromorphone HCl (Dilaudid) 2 mg Q4H PRN IVP Severe Pain (Pain Scale 7-10) 11/14/16 10:00 11/21/16 09:59 11/15/16 02:12 Lorazepam (Ativan 2mg/ml 1ml) 0.5 mg Q4H PRN IV For Anxiety 11/12/16 15:00 11/19/16 14:59 11/15/16 03:00 Methylprednisolone Sodium Succinate (Solu-MEDROL) 125 mg DAILY IVP 11/14/16 14:00 12/14/16 13:59 11/14/16 15:17 Metoprolol Tartrate (Lopressor) 50 mg Q12HR ORAL 11/13/16 18:30 12/13/16 18:29 11/14/16 20:41 Ondansetron HCl (Zofran) 4 mg Q6H PRN IVP Nausea & Vomiting 11/12/16 15:00 12/12/16 14:59 11/13/16 13:13 Polyethylene Glycol (Miralax) 17 gm HSPRN PRN ORAL Constipation 11/12/16 15:00 12/12/16 14:59 Zolpidem Tartrate (Ambien) 5 mg HSPRN PRN ORAL Insomnia 11/14/16 21:00 12/14/16 20:59 Guilherme ([facility])Reena NP Nov 15, 2016 08:23
[2016-11-15] MEDS: Heparin 5000 units/ml inj SUBQ SCH (08:32)
--- NOTE | 2016-11-15 08:53 | General Progress Note ---
Assessment/Plan Assessment/Plan (1) Multiple Sclerosis (2) Neuropathic pain (3) Cervical DDD (4) Cervical spondylosis (5) Lumbar DDD (6) Lumbar spondylosis (7) Narcotic Dependency Patient will be continued on the Dilaudid, Ambien and Neurontin. Rx for Dilaudid 2mg 30 tabs was written for patient in anticipation for discharge Pt was d/w Dr. Scott and he concurred. Subjective Date patient seen: Nov 15, 2016 Time patient seen: 06:30 - am Allergies: Coded Allergies: KETOROLAC (Verified Allergy, Severe, Anaphylaxis, 06/19/15) Subjective Constitutional: Reports: weakness, Denies: chills, diaphoresis, fever, malaise , no symptoms, other HEENT: Denies: blurred vision, double vision, ear discharge, ear pain, eye pain , mouth pain, mouth swelling, no symptoms, nose congestion, nose pain, other, tearing, throat pain, throat swelling Cardiovascular: Denies: chest pain, edema, irregular heart rate, lightheadedness, no symptoms, other, palpitations, syncope Respiratory: Denies: SOB at rest, SOB with excertion, cough, no symptoms, orthopnea, other, shortness of breath, sputum, stridor, wheezing Gastrointestinal/Abdominal: Denies: abdomen distended, abdominal pain, black stools, blood in stool, constipated, diarrhea, difficulty swallowing, nausea, no symptoms, other, poor appetite, poor fluid intake, rectal bleeding, tarry stools, vomiting Genitourinary: Denies: burning, discharge, flank pain, frequency, hematuria, incontinence, no symptoms, other, pain, urgency Neurologic/Psychiatric: Reports: weakness, Denies: anxiety, depressed, emotional problems, headache, no symptoms, numbness, other, paresthesia, pre- existing deficit, seizure, tingling, tremors Endocrine: Denies: excessive sweating, flushing, increased hunger, increased thirst, increased urine, intolerance to cold, intolerance to heat, no symptoms, other, unexplained weight gain, unexplained weight loss Hematologic/Lymphatic: Denies: anemia, easy bleeding, easy bruising, no symptoms, other Subjective His pain has been reducing and has been tolerated on the change in medication regimen. He is looking forward to being discharged home. Objective Last 24 Hour Vital Signs Date Time Temp Pulse Resp B/P Pulse Ox O2 Delivery O2 Flow Rate FiO2 11/15/16 05:21 153/89 11/15/16 03:52 97.2 79 18 142/86 96 Room Air 11/15/16 00:00 96.6 88 18 152/109 97 Room Air 11/14/16 22:44 144/106 11/14/16 20:41 93 156/98 11/14/16 20:23 Nasal Cannula 2.0 28 11/14/16 20:22 97 Nasal Cannula 2.0 28 11/14/16 20:00 97.7 93 20 156/98 96 Room Air 11/14/16 16:00 97.5 82 18 137/97 95 Nasal Cannula 11/14/16 15:17 137/97 11/14/16 12:34 97.2 76 18 154/91 97 Nasal Cannula 11/14/16 09:14 78 142/91 11/14/16 09:14 78 142/91 Intake and Output 11/14/16 11/15/16 19:00 07:00 Intake Total 1360 ml Balance 1360 ml Intake Oral 1360 ml # Voids 5 Laboratory Tests 11/15/16 05:00: White Blood Count 7.9, Red Blood Count 4.49L, Hemoglobin 14.5, Hematocrit 43.4, Mean Corpuscular Volume 97, Mean Corpuscular Hemoglobin 32.4H, Mean Corpuscular Hemoglobin Concent 33.6, Red Cell Distribution Width 12.4, Platelet Count 172, Mean Platelet Volume 8.6, Neutrophils (%) (Auto) 83.6H, Lymphocytes (%) (Auto) 11.0L, Monocytes (%) (Auto) 4.8, Eosinophils (%) (Auto) 0.1, Basophils (%) (Auto ) 0.5, Sodium Level 140, Potassium Level 4.7, Chloride Level 101, Carbon Dioxide Level 25, Anion Gap 14, Blood Urea Nitrogen 17, Creatinine 1.1, Estimat Glomerular Filtration Rate > 60, Glucose Level 237#H, Calcium Level 9.4 Height (Feet): 6 Height (Inches): 0.00 Weight (Pounds): 220 Objective General Appearance: no apparent distress, alert EENT: PERRL/EOMI, normal ENT inspection Neck: non-tender, normal alignment Cardiovascular: normal peripheral pulses, normal rate, regular rhythm Respiratory/Chest: lungs clear, normal breath sounds Abdomen: non tender, soft Extremities: non-tender Edema: no edema noted Arm (L), no edema noted Arm (R), no edema noted Leg (L), no edema noted Leg (R), no edema noted Pedal (L), no edema noted Pedal (R), no edema noted Generalized Neurologic: alert, oriented x 3 Skin: warm/dry MAYCOL WILEY Nov 15, 2016 08:53
[2016-11-15] MEDS: Metoprolol 50mg tab ORAL SCH (09:06)
--- NOTE | 2016-11-15 12:28 | Neurology Progress Note ---
Interim History Interim History ROS Limited/Unobtainable: No Complaints: severe pain all body head unstable gait Events: starte steroids feel better on opiates Objective Physical Exam Last Vital Signs Date Time Temp Pulse Resp B/P Pulse Ox O2 Delivery O2 Flow Rate FiO2 11/15/16 09:06 85 163/106 11/15/16 08:00 97.3 20 96 Room Air 11/14/16 20:23 2.0 28 Laboratory Tests Test 11/15/16 05:00 White Blood Count 7.9 K/UL (4.8-10.8) Red Blood Count 4.49 M/UL (4.70-6.10) L Hemoglobin 14.5 G/DL (14.2-18.0) Hematocrit 43.4 % (42.0-52.0) Mean Corpuscular Volume 97 FL (80-99) Mean Corpuscular Hemoglobin 32.4 PG (27.0-31.0) H Mean Corpuscular Hemoglobin Concent 33.6 G/DL (32.0-36.0) Red Cell Distribution Width 12.4 % (11.6-14.8) Platelet Count 172 K/UL (150-450) Mean Platelet Volume 8.6 FL (6.5-10.1) Neutrophils (%) (Auto) 83.6 % (45.0-75.0) H Lymphocytes (%) (Auto) 11.0 % (20.0-45.0) L Monocytes (%) (Auto) 4.8 % (1.0-10.0) Eosinophils (%) (Auto) 0.1 % (0.0-3.0) Basophils (%) (Auto) 0.5 % (0.0-2.0) Sodium Level 140 mEQ/L (135-145) Potassium Level 4.7 mEQ/L (3.4-4.9) Chloride Level 101 mEQ/L (98-107) Carbon Dioxide Level 25 mEQ/L (20-30) Anion Gap 14 (5-15) Blood Urea Nitrogen 17 mg/dL (7-23) Creatinine 1.1 mg/dL (0.7-1.2) Estimat Glomerular Filtration Rate > 60 mL/min (>60) Glucose Level 237 mg/dL (74-106) #H Calcium Level 9.4 mg/dL (8.6-10.2) General: well developed, well nourished, no acute distress Head: normocophalic, atraumatic Neck: no rigidity Neurologic Exam Mental Status: awake, alert, oriented x4, normal cognition Speech: normal speech, no dysarthia Language: normal language, no aphasia Cranial Nerve II: fundus normal, visual keller, no papilledema Cranial Nerves III, IV, : PERRLA, EOMI, pupils Cranial Nerve V: normal facial sensations, temporales function normal, masseters function normal, pterygoids function normal Cranial Nerve VII: no facial asymmetry, normal facial expressions Cranial Nerve VIII: normal hearing, no nystagmus Cranial Nerve IX: normal palate elevation, gag response Cranial Nerve X: no voice hoarseness Cranial Nerve XI: SCM symmetric, trapezii function normal Cranial Nerve XII: tongue midline, no tongue atrophy/fasciculations Motor System: other - L leg 4/5, spastic Sensory: normal pinprick Coordination: normal finger to nose bilaterally Deep Tendon Reflexes: 0 ankle (R), 0 bicep (L), 0 bicep (R), 0 brachioradialis (L), 0 brachioradialis (R), 0 knee (R), 0 tricep (L), 0 tricep (R), 2+ ankle (L) , 2+ knee (L) Reflexes: extensor plantar (L), mute plantar (R) Gait: other - limping to L unstable Impression/Recommendations Problems: (1) Relapsing progressive multiple sclerosis (2) Opiate dependence (3) HTN (hypertension) (4) Anxiety disorder (5) Accelerated hypertension Status: stable, progressing, tolerating diet Recommendations patient examined, orders given # [id number] MRI brain [id number]--done cont pain mgmt rec to start on GYLENIA as outpat patient insisted on d/c home start po prednisone 60mg taper in x 6 days MARKOS CROOKS Nov 15, 2016 12:28
--- NOTE | 2016-11-15 13:07 | General Progress Note ---
Assessment/Plan Problem List: (1) Multiple sclerosis, relapsing-remitting ICD Codes: G35 - Relapsing remitting multiple sclerosis SNOMED: 667412642 (2) Intractable pain ICD Codes: R52 - Pain, unspecified SNOMED: 87146341 (3) Hypertension ICD Codes: I10 - Essential (primary) hypertension SNOMED: 70955249 Status: stable, progressing, tolerating diet Assessment/Plan ot pt diet pain control dc w hh Subjective Constitutional: Reports: weakness Allergies: Coded Allergies: KETOROLAC (Verified Allergy, Severe, Anaphylaxis, 06/19/15) All Systems: reviewed and negative except above Subjective sl anxious in bed Objective Last 24 Hour Vital Signs Date Time Temp Pulse Resp B/P Pulse Ox O2 Delivery O2 Flow Rate FiO2 11/15/16 12:32 97.3 11/15/16 12:00 97.7 92 20 181/110 97 Room Air 11/15/16 09:06 85 163/106 11/15/16 09:06 85 163/106 11/15/16 08:00 97.3 85 20 163/106 96 Room Air 11/15/16 05:21 153/89 11/15/16 03:52 97.2 79 18 142/86 96 Room Air 11/15/16 00:00 96.6 88 18 152/109 97 Room Air 11/14/16 22:44 144/106 11/14/16 20:41 93 156/98 11/14/16 20:23 Nasal Cannula 2.0 28 11/14/16 20:22 97 Nasal Cannula 2.0 28 11/14/16 20:00 97.7 93 20 156/98 96 Room Air 11/14/16 16:00 97.5 82 18 137/97 95 Nasal Cannula 11/14/16 15:17 137/97 Intake and Output 11/14/16 11/15/16 19:00 07:00 Intake Total 1360 ml Balance 1360 ml Intake Oral 1360 ml # Voids 5 Laboratory Tests 11/15/16 05:00: White Blood Count 7.9, Red Blood Count 4.49L, Hemoglobin 14.5, Hematocrit 43.4, Mean Corpuscular Volume 97, Mean Corpuscular Hemoglobin 32.4H, Mean Corpuscular Hemoglobin Concent 33.6, Red Cell Distribution Width 12.4, Platelet Count 172, Mean Platelet Volume 8.6, Neutrophils (%) (Auto) 83.6H, Lymphocytes (%) (Auto) 11.0L, Monocytes (%) (Auto) 4.8, Eosinophils (%) (Auto) 0.1, Basophils (%) (Auto ) 0.5, Sodium Level 140, Potassium Level 4.7, Chloride Level 101, Carbon Dioxide Level 25, Anion Gap 14, Blood Urea Nitrogen 17, Creatinine 1.1, Estimat Glomerular Filtration Rate > 60, Glucose Level 237#H, Calcium Level 9.4 Height (Feet): 6 Height (Inches): 0.00 Weight (Pounds): 220 General Appearance: lethargic EENT: normal ENT inspection Neck: normal alignment Cardiovascular: normal peripheral pulses, normal rate, regular rhythm Respiratory/Chest: chest wall non-tender, lungs clear, normal breath sounds Abdomen: normal bowel sounds, non tender, soft Extremities: normal inspection Edema: no edema noted Arm (L), no edema noted Arm (R), no edema noted Leg (L), no edema noted Leg (R), no edema noted Pedal (L), no edema noted Pedal (R), no edema noted Generalized Neurologic: responsive, motor weakness Skin: normal pigmentation, warm/dry BARBARA RAGLAND Nov 15, 2016 13:07
--- NOTE | 2016-11-15 16:16 | Infectious Diseases Prog Note ---
Assessment/Plan Problems: (1) Leukocytosis Assessment & Plan: suspect due to steroids, with no evidence of pneumonia, or sepsis, await blood culture , off antibiotics, monitor WBC (2) Multiple sclerosis Assessment & Plan: with acute flare, on pulse steroids , neurology is following (3) Diabetes Assessment & Plan: recommend tight glycemic control to keep blood glucose between 80-120 Subjective Constitutional: Reports: no symptoms HEENT: Reports: no symptoms Respiratory: Reports: no symptoms Breasts: Reports: no symptoms Cardiovascular: Reports: no symptoms Gastrointestinal/Abdominal: Reports: no symptoms Genitourinary: Reports: no symptoms Neurologic: Reports: numbness, weakness Psychiatric: Reports: no symptoms Skin: Reports: no symptoms Endocrine: Reports: no symptoms Hematologic: Reports: no symptoms Musculoskeletal: Reports: pain Allergies: Coded Allergies: KETOROLAC (Verified Allergy, Severe, Anaphylaxis, 06/19/15) Objective Vital Signs Last 24 Hour Vital Signs Date Time Temp Pulse Resp B/P Pulse Ox O2 Delivery O2 Flow Rate FiO2 11/15/16 13:42 161/121 11/15/16 13:35 100 161/121 11/15/16 12:32 97.3 11/15/16 12:00 97.7 92 20 181/110 97 Room Air 11/15/16 09:06 85 163/106 11/15/16 09:06 85 163/106 11/15/16 08:00 97.3 85 20 163/106 96 Room Air 11/15/16 05:21 153/89 11/15/16 03:52 97.2 79 18 142/86 96 Room Air 11/15/16 00:00 96.6 88 18 152/109 97 Room Air 11/14/16 22:44 144/106 11/14/16 20:41 93 156/98 11/14/16 20:23 Nasal Cannula 2.0 28 11/14/16 20:22 97 Nasal Cannula 2.0 28 11/14/16 20:00 97.7 93 20 156/98 96 Room Air Height (Feet): 6 Height (Inches): 0.00 Weight (Pounds): 220 General Appearance: WD/WN, no acute distress HEENT: normocephalic, atraumatic, anicteric, mucous membranes moist Respiratory/Chest: chest wall non-tender, lungs clear, normal breath sounds, no respiratory distress, no accessory muscle use Cardiovascular: normal peripheral pulses, normal rate, regular rhythm, no gallop/murmur, no JVD Abdomen: normal bowel sounds, soft, non tender, no organomegaly, non distended , no mass, no scars Extremities: no cyanosis, no clubbing Skin: no rash, no lesions Neurologic/Psychiatric: motor weakness, sensory deficit Lymphatic: no neck adenopathy, no groin adenopathy Microbiology Date/Time Source Procedure Growth Status 11/14/16 03:30 Blood Blood Culture - Preliminary NO GROWTH AFTER 24 HOURS Resulted 11/14/16 04:00 Arm Left Blood Culture - Preliminary NO GROWTH AFTER 24 HOURS Resulted Laboratory Tests Test 11/15/16 05:00 White Blood Count 7.9 K/UL (4.8-10.8) Red Blood Count 4.49 M/UL (4.70-6.10) L Hemoglobin 14.5 G/DL (14.2-18.0) Hematocrit 43.4 % (42.0-52.0) Mean Corpuscular Volume 97 FL (80-99) Mean Corpuscular Hemoglobin 32.4 PG (27.0-31.0) H Mean Corpuscular Hemoglobin Concent 33.6 G/DL (32.0-36.0) Red Cell Distribution Width 12.4 % (11.6-14.8) Platelet Count 172 K/UL (150-450) Mean Platelet Volume 8.6 FL (6.5-10.1) Neutrophils (%) (Auto) 83.6 % (45.0-75.0) H Lymphocytes (%) (Auto) 11.0 % (20.0-45.0) L Monocytes (%) (Auto) 4.8 % (1.0-10.0) Eosinophils (%) (Auto) 0.1 % (0.0-3.0) Basophils (%) (Auto) 0.5 % (0.0-2.0) Sodium Level 140 mEQ/L (135-145) Potassium Level 4.7 mEQ/L (3.4-4.9) Chloride Level 101 mEQ/L (98-107) Carbon Dioxide Level 25 mEQ/L (20-30) Anion Gap 14 (5-15) Blood Urea Nitrogen 17 mg/dL (7-23) Creatinine 1.1 mg/dL (0.7-1.2) Estimat Glomerular Filtration Rate > 60 mL/min (>60) Glucose Level 237 mg/dL (74-106) #H Calcium Level 9.4 mg/dL (8.6-10.2) Current Medications Medications (Trade) Dose Ordered Sig/Jessica Route PRN Reason Start Time Stop Time Status Last Admin Dose Admin Acetaminophen (Tylenol) 650 mg Q4H PRN ORAL fever 11/12/16 15:00 12/12/16 14:59 Al Hydroxide/Mg Hydroxide (Mylanta II) 30 ml Q6H PRN ORAL dyspepsia 11/12/16 15:00 12/12/16 14:59 Amlodipine Besylate (Norvasc) 10 mg DAILY ORAL 11/13/16 18:30 12/13/16 18:29 11/15/16 09:06 Chlorhexidine Gluconate (Jaqueline-Hex 2%) 1 applic DAILY TOPIC 11/13/16 09:00 12/13/16 08:59 11/15/16 08:15 Clonidine HCl (Catapres) 0.1 mg Q8H PRN ORAL Systolic BP greater than 160 11/12/16 19:30 12/12/16 19:29 11/13/16 12:43 Clonidine HCl (Catapres) 0.2 mg EVERY 8 HOURS ORAL 11/13/16 22:00 12/13/16 21:59 11/15/16 13:42 Clonidine HCl (Catapres) 0.2 mg Q2H PRN ORAL hypertension 11/13/16 18:15 12/13/16 18:14 Dextrose (Dextrose 50%) STAT PRN IV Hypoglycemia 11/12/16 15:00 12/12/16 14:59 Diphenhydramine HCl (Benadryl) 25 mg Q4H PRN IVP Itching 11/12/16 20:30 12/12/16 20:29 11/15/16 16:10 Duloxetine HCl (Cymbalta) 40 mg DAILY ORAL 11/13/16 09:00 12/13/16 08:59 11/15/16 08:16 Gabapentin (Neurontin) 300 mg THREE TIMES A DAY ORAL 11/14/16 09:15 12/14/16 09:14 11/15/16 12:55 Heparin Sodium (Porcine) (Heparin 5000 units/ml) 5,000 units EVERY 12 HOURS SUBQ 11/12/16 21:00 12/12/16 20:59 11/15/16 08:32 Hydromorphone HCl (Dilaudid) 1 mg Q6H PRN IVP SEVERE BREAKTHROUGH PAIN 11/14/16 09:15 11/21/16 09:14 11/15/16 12:02 Hydromorphone HCl (Dilaudid) 2 mg Q4H PRN IVP Severe Pain (Pain Scale 7-10) 11/14/16 10:00 11/21/16 09:59 11/15/16 13:34 Lorazepam (Ativan 2mg/ml 1ml) 0.5 mg Q4H PRN IV For Anxiety 11/12/16 15:00 11/19/16 14:59 11/15/16 12:55 Methylprednisolone Sodium Succinate (Solu-MEDROL) 125 mg DAILY IVP 11/14/16 14:00 12/14/16 13:59 11/15/16 08:15 Metoprolol Tartrate (Lopressor) 50 mg Q12HR ORAL 11/13/16 18:30 12/13/16 18:29 11/15/16 09:06 Ondansetron HCl (Zofran) 4 mg Q6H PRN IVP Nausea & Vomiting 11/12/16 15:00 12/12/16 14:59 11/13/16 13:13 Polyethylene Glycol (Miralax) 17 gm HSPRN PRN ORAL Constipation 11/12/16 15:00 12/12/16 14:59 Zolpidem Tartrate (Ambien) 5 mg HSPRN PRN ORAL Insomnia 11/14/16 21:00 12/14/16 20:59 Aditi Bustamante M.D. Nov 15, 2016 16:16
[2016-11-15] MEDS ORDERED: PREDNISONE10 M2 PO (16:35)
[2016-11-15] MEDS ORDERED: HYDROMORPHONE HC2 M1 PO ×2 (16:39→16:42)
--- NOTE | 2016-11-18 12:26 | Discharge Summary ---
Discharge Summary Hospital Course Date of Admission Nov 12, 2016 at 13:37 Date of Discharge Nov 15, 2016 at 18:03 Admitting Diagnosis exacerbation multiple sclerosis HPI Teto Granda is a 51 year old male who was admitted on Nov 12, 2016 at 13:37 for Exacerbation Multiple Sclerosis Hospital Course dc summary #[id number] Discharge Medications Continued Medications: Hydromorphone Hcl (Hydromorphone Hcl) 2 Mg Tablet 2 MG PO EVERY 12 HOURS, TAB Prednisone (Prednisone) 10 Mg Tab.ds.pk 10 MG PO DAILY for 6 Days, PACK Discharge Condition Upon Discharge: stable Discharge Disposition Patient was discharged to Home with Home Health(06) Discharge Diagnoses: Guilherme (Esthelaherve),Reena GRACIA Nov 18, 2016 12:26
--- NOTE | 2016-11-18 23:45 | Discharge Summary 2 SIG ---
DATE OF ADMISSION: 11/12/2016 DATE OF DISCHARGE: 11/15/2016 REASON FOR ADMISSION: The patient is a 51-year-old male with history of multiple sclerosis reported lower extremity pain. He reported worsening of multiple sclerosis due to the heat. He stated that he was unable to ambulate because of the pain. His knee pain is most severe in the right knee. He reported also some weakness, however, he denies fever, chills, chest pain, shortness of breath, nausea, vomiting or diarrhea. The patient signed out from rehabilitation facility months ago, have been at home. He believes he was taking prednisone, but not sure about it. He stated he had chemotherapy in the past to treat multiple sclerosis. Pain 10/10, worse with movement and ambulation, constant, nonradiating. He also reported history of hypertension. Blood pressure was 179/102, was treated with hydralazine and clonidine in the emergency room. Chest x-ray, no acute cardiopulmonary disease. EKG normal sinus rhythm with no acute ischemic changes. Troponin negative. Noted leukocytosis of 14.0. Mild elevation in uric acid 7.7. The patient started on IV fluids, one dose of Solu-Medrol and analgesia provided. Urine toxicology screen was negative. The patient admitted for further management. ADMITTING DIAGNOSES: 1. Multiple sclerosis, relapsing remitting. 2. Leukocytosis. 3. Hypertensive urgency. 4. Gout. HOSPITAL STAY: The patient admitted. The patient started on the IV fluids. Neurology and Cardiology consult was requested. Per Cardiology, antihypertensive medication optimized by Cardiology, the patient's beta-josette, calcium channel-josette and clonidine. Blood pressure improved. The patient also complained of severe headache, which was likely secondary to hypertensive urgency, resolved. Supplemental oxygen and pulmonary toilet provided as needed. Pain management provided. Pain specialist followed. Neurology followed the patient closely. He ordered MRI of the C and T-spine to rule out exacerbation of MS. MRI of the cervical and thoracic spine revealed acute demyelination process, likely MS exacerbation. The patient started on IV steroids. As outpatient neurologist recommended to start Gilenya and taper the steroids. The patient was worked on physical and occupational therapy, able to walk with his cane. DVT prophylaxis provided. Fall precaution maintained. ID closely followed. No evidence of pneumonia or sepsis. Blood culture preliminary negative. WBC trending down. Antibiotic as per ID. The patient afebrile. The patient was stable for discharge and follow up with his primary medical doctor and neurologist. FINAL DIAGNOSES: 1. Relapsing progressive multiple sclerosis. 2. Hypertensive urgency. 3. Severe headache secondary to hypertensive urgency. 4. Opiate dependency. 5. Gout. 6. Leukocytosis, resolved. 7. Chronic pain syndrome, opiate dependency. 8. Lumbar spondylosis with radiculopathy. 9. Lumbar degenerative disk disease. 10. Cervical degenerative disk disease. 11. Cervical spondylosis. DISCHARGE MEDICATIONS: See medication reconciliation list. DISCHARGE INSTRUCTIONS: The patient discharged home. Follow up with Neurology and primary medical doctor. Dennis Hoffman D.O. I have been assigned to dictate discharge summary on this account and I was not involved in the patient's management. Reena Banerjeeeastern niagara hospitalAlex N.PKassandra DR: BHAVESH JOB#: [id number] CC:
== END 2016-11-15 18:03 | disposition home health service (06) | DRG 59 ==
LOC: EMR 13:35 → 4E 13:37 → EDBEDREQ 17:43
PROC: 02HV33Z Insertion of Infusion Device into Superior Vena Cava, Percutaneous Approach (ICD-10-PCS; principal; 2016-11-12)
DX: G35 Multiple sclerosis (principal); F11.20 Opioid dependence, uncomplicated; I10 Essential (primary) hypertension; Z79.891 Long term (current) use of opiate analgesic; Z88.8 Allergy status to other drugs, medicaments and biological substances; M54.5 Low back pain; E11.9 Type 2 diabetes mellitus without complications; I16.0 Hypertensive urgency; R51 Headache; M10.9 Gout, unspecified; G89.4 Chronic pain syndrome; M51.16 Intervertebral disc disorders with radiculopathy, lumbar region; M47.896 Other spondylosis, lumbar region; F41.9 Anxiety disorder, unspecified; I25.10 Atherosclerotic heart disease of native coronary artery without angina pectoris; Z86.73 Personal history of transient ischemic attack (TIA), and cerebral infarction without residual deficits; R07.89 Other chest pain; G62.9 Polyneuropathy, unspecified
CPT/HCPCS: 36415; 36569; 70450; 70553; 71010; 72156; 72157; 76937; 80048; 80053; 80300; 81003; 82550; 83880; 84443; 84484; 84550; 85007; 85025; 85610; 85651; 85730; 87040; 93005; 94760; 97803; A9585; J2405

== ENCOUNTER 2016-11-19 16:20 | Emergency (ER) | payer MEDICARE, OTHER ==
[~2016-11-19] VITALS: Ht 182.9 cm; Wt 99.8 kg
[~2016-11-19 16:20] MED LIST changes: +HYDROMORPHONE HC2 M1 PO; +PREDNISONE10 M2 PO; +PREDNISONE20 MG ORAL
[2016-11-19 16:41] VITALS: BP 178/118
[2016-11-19] MEDS ORDERED: DiphenhydrAMINE 50mg/ml Inj ONE (16:56)
[2016-11-19] MEDS ORDERED: Metoprolol 50mg tab ORAL ONE (17:00)
[2016-11-19] MEDS ORDERED: DiphenhydrAMINE 50mg/ml Inj IM ONE (17:00)
[2016-11-19] MEDS ORDERED: HYDROmorphone 1mg/ml Carpuject IM ONE ×3 (17:00→18:30)
[2016-11-19 17:43] VITALS: BP 171/100
[2016-11-19 18:16] VITALS: BP 175/103
[2016-11-19] MEDS ORDERED: METOPROLOL TART50 M1 ORAL (18:29)
[2016-11-19 18:42] VITALS: BP 175/103
--- NOTE | 2016-11-21 06:40 | Emergency Room Report ---
History of Present Illness General Chief Complaint: Hypertension Source: Patient Present Illness HPI Patient is a 51-year-old male who presented after increased blood pressure. Patient recently discharged from the hospital for chest pain evaluation. Patient had prior history of cardiac disease as well as diabetes and chronic pain to his left hip. Patient stated that he had been taking clonidine without effect. He also takes chronic pain medications. Patient denied any fever. He denied any current chest pain or shortness of breath. Allergies: Coded Allergies: KETOROLAC (Verified Allergy, Severe, Anaphylaxis, 06/19/15) Patient History Past Medical History: see triage record Reviewed Nursing Documentation: PMH: Agreed, PSxH: Agreed Nursing Documentation-PMH Past Medical History: No History, Except For Hx Cardiac Problems: Yes - CAD Hx Hypertension: Yes Hx Asthma: No Hx COPD: No Hx Diabetes: No Hx Cancer: No Hx Gastrointestinal Problems: No Hx Dialysis: No Hx Neurological Problems: Yes - MS Hx Cerebrovascular Accident: Yes - TIA (2013) Hx Transient Ischemic Attacks: No Hx Dementia: No Hx Alzheimer's Disease: No Hx Parkinson's Disease: No Hx Meningitis: No Hx Encephalitis: No Hx Seizures: No Hx Epilepsy: No Hx Multiple Sclerosis: Yes Hx Cerebral Palsy: No Hx Amyotrophic Lat Sclerosis: No Hx Guillian-[place] Syndrome: No Hx Paralysis: No Hx Peripheral Neuropathy: No Hx Spinal Cord Injury: No Hx Head Trauma: No Hx Traumatic Brain Injury: No Hx Memory Loss: No Hx Concentration Difficulty: No Hx Speech Problem: No Hx Tremors: No Hx Vertigo: No Hx Dizziness: Yes - SLIGHT Hx Syncope: Yes Hx Headaches: Yes - SOMETIMES Hx Aphasia: No Hx Dysphasia: No Hx Numbness: Yes - RIGHT HAND Hx Weakness: Yes - ALL OF THE BODY Hx Fatigue: Yes - SLIGHT Hx Neurologic Surgery: No Hx Brain Shunt: No Review of Systems All Other Systems: negative except mentioned in HPI Physical Exam Vital Signs Date Time Temp Pulse Resp B/P Pulse Ox O2 Delivery O2 Flow Rate FiO2 11/19/16 16:30 98.1 95 16 178/118 99 Room Air Sp02 EP Interpretation: reviewed, normal General Appearance: normal inspection, well appearing, no apparent distress, alert, GCS 15 Head: atraumatic ENT: normal ENT inspection, hearing grossly normal, normal voice Neck: normal inspection, full range of motion, supple, no bony tend Respiratory: normal inspection, lungs clear, normal breath sounds, no respiratory distress, no retraction, no wheezing Cardiovascular #1: regular rate, rhythm, no edema Gastrointestinal: normal inspection, normal bowel sounds, non tender, soft, no guarding, no hernia Genitourinary: no CVA tenderness Musculoskeletal: normal inspection, back normal, normal range of motion Neurologic: normal inspection, alert, responsive, speech normal Psychiatric: normal inspection, judgement/insight normal, mood/affect normal Skin: normal inspection, normal color, no rash Medical Decision Making Diagnostic Impression: Primary Impression: Hypertension Additional Impressions: Multiple sclerosis Opiate dependence ER Course Patient presented for hypertension. Differential diagnosis included was not limited to acute coronary syndrome, hypertensive crisis, aortic dissection, acute renal failure among others.Because of complexity of patient's case laboratory testing and imaging studies were ordered. The patient was given by mouth metoprolol for hypertension. The patient was noted to have a previous he been on beta blockers however this had not been taking this medicines discharge. The patient noted have improvement in his blood pressure. He was given pain medication in ED. The patient is advised to follow up with primary care doctor in 1-2 days. Patient is advised to return if any worsening condition or if any changes in status that are concerning. Last Vital Signs Date Time Temp Pulse Resp B/P Pulse Ox O2 Delivery O2 Flow Rate FiO2 11/19/16 18:42 98.1 90 15 175/103 100 Room Air Status: improved Disposition: HOME, SELF-CARE Condition: Stable Scripts Metoprolol Tartrate* (METOPROLOL TARTRATE*) 50 Mg Tablet 50 MG ORAL EVERY 12 HOURS, #60 TAB Prov: Ramón Blackwell 11/19/16 Referrals: BARBARA RAGLAND (PCP) Patient Instructions: Hypertension Ramón Blackwell Nov 21, 2016 06:40
--- NOTE | 2016-11-21 09:45 | Cardiology Report ---
APPROVED REPORT EKG Measurement Heart [id number] Normal sinus rhythm Anteroseptal infarct, age undetermined Abnormal ECG
== END 2016-11-19 18:42 | disposition home or self-care (01) ==
LOC: EMR 17:05
DX: I10 Essential (primary) hypertension (principal); G35 Multiple sclerosis; F11.20 Opioid dependence, uncomplicated; I25.10 Atherosclerotic heart disease of native coronary artery without angina pectoris; Z86.73 Personal history of transient ischemic attack (TIA), and cerebral infarction without residual deficits
CPT/HCPCS: 93005; 96372; 99283; J1170; J1200

== ENCOUNTER 2016-11-21 12:12 | Emergency (ER) | payer MEDICARE, OTHER ==
[~2016-11-21] VITALS: Ht 182.9 cm; Wt 99.8 kg
[~2016-11-21 12:12] MED LIST changes: +METOPROLOL TART50 M1 ORAL
[2016-11-21] MEDS ORDERED: Morphine Sulfate 4mg/ml Inj IM ONE (12:45)
[2016-11-21] MEDS ORDERED: Morphine Sulfate 4mg/ml Inj IVP ONE (12:45)
[2016-11-21] MEDS ORDERED: DiphenhydrAMINE 50mg/ml Inj ONE (13:24)
[2016-11-21] MEDS ORDERED: DiphenhydrAMINE 50mg/ml Inj IVP ONE ×2 (13:30→15:00)
[2016-11-21 15:17] VITALS: BP_SYST 161; BP_SYST 164; BP_DIAS 104; BP_DIAS 92
--- NOTE | 2016-11-21 16:03 | Diagnostic Imaging Report ---
Indication: Right knee pain Technique: 3 views of the right knee Comparison: None Findings:No suprapatellar effusion, fracture, dislocation, or joint space narrowing demonstrated. There is some prepatellar soft tissue swelling. Impression:No acute bony trauma
--- NOTE | 2016-11-21 20:35 | Emergency Room Report ---
History of Present Illness General Chief Complaint: Multiple Trauma/Fall Source: Patient Present Illness HPI The patient is a 51-year-old male with a history of MS and chronic pain presenting for right knee and left hip pain after falling yesterday. He states that he lost balance and fell onto the right knee. It is now described as a 10 out of 10 dull ache and does not radiate from these areas. Worse with movement and touch. He states that he takes Dilaudid at home which does help the pain. He denies any other symptoms including N, V, F, chills, SOB, CP, headache, back pain Allergies: Coded Allergies: KETOROLAC (Verified Allergy, Severe, Anaphylaxis, 06/19/15) Patient History Past Medical History: see triage record Pertinent Family History: none Reviewed Nursing Documentation: PMH: Agreed, PSxH: Agreed Nursing Documentation-PMH Past Medical History: No History, Except For Hx Cardiac Problems: Yes - CAD Hx Hypertension: Yes Hx Asthma: No Hx COPD: No Hx Diabetes: No Hx Cancer: No Hx Gastrointestinal Problems: No Hx Dialysis: No Hx Neurological Problems: Yes - multiple sclerosis Hx Cerebrovascular Accident: Yes - TIA (2013) Hx Transient Ischemic Attacks: No Hx Dementia: No Hx Alzheimer's Disease: No Hx Parkinson's Disease: No Hx Meningitis: No Hx Encephalitis: No Hx Seizures: No Hx Epilepsy: No Hx Multiple Sclerosis: Yes Hx Cerebral Palsy: No Hx Amyotrophic Lat Sclerosis: No Hx Guillian-[place] Syndrome: No Hx Paralysis: No Hx Peripheral Neuropathy: No Hx Spinal Cord Injury: No Hx Head Trauma: No Hx Traumatic Brain Injury: No Hx Memory Loss: No Hx Concentration Difficulty: No Hx Speech Problem: No Hx Tremors: No Hx Vertigo: No Hx Dizziness: Yes - SLIGHT Hx Syncope: Yes Hx Headaches: Yes - SOMETIMES Hx Aphasia: No Hx Dysphasia: No Hx Numbness: Yes - RIGHT HAND Hx Weakness: Yes - ALL OF THE BODY Hx Fatigue: Yes - SLIGHT Hx Neurologic Surgery: No Hx Brain Shunt: No Review of Systems All Other Systems: negative except mentioned in HPI Physical Exam Vital Signs Date Time Temp Pulse Resp B/P Pulse Ox O2 Delivery O2 Flow Rate FiO2 11/21/16 12:14 98.2 84 18 161/104 99 Room Air Sp02 EP Interpretation: reviewed, normal General Appearance: no apparent distress, alert, GCS 15, non-toxic Head: normocephalic, atraumatic Eyes: bilateral eye PERRL, bilateral eye normal inspection ENT: hearing grossly normal, normal pharynx, no angioedema, normal voice Musculoskeletal: normal inspection, normal range of motion, tender - R anterior knee Neurologic: alert, oriented x3, responsive, sensory intact Psychiatric: judgement/insight normal, memory normal, mood/affect normal, no suicidal/homicidal ideation Skin: normal color, no rash, warm/dry, well hydrated Medical Decision Making PA Attestation Dr. Waggoner is my supervising physician. Patient management was discussed with my supervising physician Diagnostic Impression: Primary Impression: Contusion of knee, right ER Course The patient is a 51-year-old male visiting for any pain after falling Ddx considered include but not limited to sprain/strain, fracture, contusion PE: NAD Right knee: There is tenderness to palpation over the patella. No obvious deformity. Full active range of motion. The patient has a slow, stable gait with a cane X-ray of the knee is unremarkable He is initially given morphine for pain which has not helped Using given Dilantin states that pain has significantly decreased. He states that he will followup with his doctor Dennis Hoffman. ER precautions given Other X-Ray Diagnostic Results Other X-Ray Diagnostic Results : X-Ray ordered: R knee # of Views/Limited Vs Complete: 3 View Indication: Pain EP Interpretation: Yes Interpretation: no dislocation, no soft tissue swelling, no fractures Impression: No acute disease Interpreting ER Provider: Dr. Waggoner PA Scribe Text I am acting as scribe for my supervising physician. My supervising physician's interpretation of the R knee xrays are there are no fractures, dislocations or soft tissue swelling. Last Vital Signs Date Time Temp Pulse Resp B/P Pulse Ox O2 Delivery O2 Flow Rate FiO2 11/21/16 15:17 98.3 74 18 161/104 99 Room Air Status: improved Disposition: HOME, SELF-CARE Condition: Improved Patient Instructions: Contusion Additional Instructions: I discussed my findings with the patient. All questions and concerns have been answered. Treatment and medication compliance have been addressed. I advised the patient that they need to follow up with primary doctor as soon as possible. Return to ED if symptoms worsen, new symptoms arise, or if needed for any reason. Patient verbalized understanding of discharge instructions. ULICES DAI Nov 21, 2016 20:35
== END 2016-11-21 15:18 | disposition home or self-care (01) ==
LOC: EMR 13:15
DX: S80.01XA Contusion of right knee, initial encounter (principal); W19.XXXA Unspecified fall, initial encounter; Y92.89 Other specified places as the place of occurrence of the external cause; G35 Multiple sclerosis; I25.10 Atherosclerotic heart disease of native coronary artery without angina pectoris; Z86.73 Personal history of transient ischemic attack (TIA), and cerebral infarction without residual deficits
CPT/HCPCS: 73562; 96374; 96375; 99284; J1170; J1200; J2270; J2405

== ENCOUNTER 2016-11-22 09:13 | Inpatient (IN) | payer MEDICARE, OTHER ==
[~2016-11-22] VITALS: Ht 182.9 cm; Wt 99.8 kg
--- NOTE | 2016-11-22 09:45 | Emergency Room Report ---
History of Present Illness General Chief Complaint: Pain Source: Patient, Medical Record Present Illness HPI The patient fell. He was evaluated yesterday. Lumbar films were done. He has multiple sclerosis. He has left leg weakness. He has been stating his multiple sclerosis has worsened. I admitted him to the hospital last week. At that time I also diagnosed new onset of gout. His strength is slightly better but his back pain persists. He was given morphine and then Dilaudid yesterday. There was some consideration of admission to the hospital however he was sent home for observation. The pain is severe. He states his oral 2 mg Dilaudid is not controlling the pain. he believes the L leg weakness from MS is why he fell. Apparently home health were having difficulty obtaining labs at home. The patient denies any fevers, incontinence, change in his weakness, tingling, saddle numbness, SI/HI. He states the pain is 9/10, constant and worse when he is moving about. The pain radiates down his left leg from his back. It is aching. He tried oral Dilaudid last night and it did not control the pain. Allergies: Coded Allergies: KETOROLAC (Verified Allergy, Severe, Anaphylaxis, 06/19/15) Patient History Past Medical History: see triage record, old chart reviewed Social History: Reports: drug use - chronic pain meds Social History Narrative Reviewed Nursing Documentation: PMH: Agreed, PSxH: Agreed Nursing Documentation-PMH Past Medical History: No History, Except For Hx Cardiac Problems: Yes - CAD Hx Hypertension: Yes Hx Asthma: No Hx COPD: No Hx Diabetes: No Hx Cancer: No Hx Gastrointestinal Problems: No Hx Dialysis: No Hx Neurological Problems: Yes - multiple sclerosis Hx Cerebrovascular Accident: Yes - TIA (2013) Hx Transient Ischemic Attacks: No Hx Dementia: No Hx Alzheimer's Disease: No Hx Parkinson's Disease: No Hx Meningitis: No Hx Encephalitis: No Hx Seizures: No Hx Epilepsy: No Hx Multiple Sclerosis: Yes Hx Cerebral Palsy: No Hx Amyotrophic Lat Sclerosis: No Hx Guillian-[place] Syndrome: No Hx Paralysis: No Hx Peripheral Neuropathy: No Hx Spinal Cord Injury: No Hx Head Trauma: No Hx Traumatic Brain Injury: No Hx Memory Loss: No Hx Concentration Difficulty: No Hx Speech Problem: No Hx Tremors: No Hx Vertigo: No Hx Dizziness: Yes - SLIGHT Hx Syncope: Yes Hx Headaches: Yes - SOMETIMES Hx Aphasia: No Hx Dysphasia: No Hx Numbness: Yes - RIGHT HAND Hx Weakness: Yes - ALL OF THE BODY Hx Fatigue: Yes - SLIGHT Hx Neurologic Surgery: No Hx Brain Shunt: No Review of Systems All Other Systems: negative except mentioned in HPI Physical Exam Vital Signs Date Time Temp Pulse Resp B/P Pulse Ox O2 Delivery O2 Flow Rate FiO2 11/22/16 09:19 98.2 74 16 184/115 97 Room Air Sp02 EP Interpretation: reviewed, normal General Appearance: well appearing, no apparent distress, GCS 15 Head: normocephalic, atraumatic Eyes: bilateral eye PERRL, bilateral eye normal inspection ENT: moist mucus membranes Neck: supple Respiratory: lungs clear, normal breath sounds Cardiovascular #1: regular rate, rhythm Cardiovascular #2: 2+ radial (R) Gastrointestinal: normal inspection, normal bowel sounds, non tender, no mass, non-distended Musculoskeletal: no calf tenderness, pelvis stable, other - SLR with back pain Neurologic: oriented x3, hand coremaker III-XII nml as tested, DTRs symmetric, speech normal, motor weakness, other - 4+/5 dorsiflexion Psychiatric: mood/affect normal Skin: normal inspection, warm/dry Medical Decision Making Diagnostic Impression: Primary Impression: Intractable pain Additional Impression: Multiple sclerosis ER Course Patient post fall with back pain not controlled by home oral medications. DDx: occult infection, exacerbation of disk disease, exacerbation of MS, opiate seeking behavior. Labs ordered. X rays reviewed. Labs unremarkable. Patient requires second pain shot. Still states pain significant but slightly better. Patient with intractable back pain and alleged exacerbation of M/S. This is MRI results 10/07/16: Impression: Suspected tethered cord syndrome given low-lying conus medullaris and thickening of the filum terminale. Suggest neurology or neurosurgical consultation to evaluate for clinical symptoms. Admit med Dr. Hoffman. (Last admission, PICC line inserted. No need for IV hydration at this time.) Laboratory Tests Test 11/22/16 12:56 11/22/16 13:00 White Blood Count 8.3 K/UL (4.8-10.8) Red Blood Count 5.17 M/UL (4.70-6.10) Hemoglobin 16.3 G/DL (14.2-18.0) Hematocrit 49.8 % (42.0-52.0) Mean Corpuscular Volume 96 FL (80-99) Mean Corpuscular Hemoglobin 31.5 PG (27.0-31.0) H Mean Corpuscular Hemoglobin Concent 32.7 G/DL (32.0-36.0) Red Cell Distribution Width 12.6 % (11.6-14.8) Platelet Count 160 K/UL (150-450) Mean Platelet Volume 7.2 FL (6.5-10.1) Neutrophils (%) (Auto) 61.7 % (45.0-75.0) Lymphocytes (%) (Auto) 28.9 % (20.0-45.0) Monocytes (%) (Auto) 6.4 % (1.0-10.0) Eosinophils (%) (Auto) 1.7 % (0.0-3.0) Basophils (%) (Auto) 1.4 % (0.0-2.0) Sodium Level 137 mEQ/L (135-145) Potassium Level 4.5 mEQ/L (3.4-4.9) Chloride Level 101 mEQ/L (98-107) Carbon Dioxide Level 27 mEQ/L (20-30) Anion Gap 9 (5-15) Blood Urea Nitrogen 18 mg/dL (7-23) Creatinine 1.2 mg/dL (0.7-1.2) Estimate Glomerular Filtration Rate > 60 mL/min (>60) Glucose Level 136 mg/dL (74-106) H Calcium Level 8.9 mg/dL (8.6-10.2) Total Bilirubin 0.4 mg/dL (0.0-1.2) Aspartate Amino Transferase (AST) 29 U/L (5-40) Alanine Aminotransferase (ALT) 48 U/L (3-41) H Alkaline Phosphatase 96 U/L (40-129) Total Protein 5.6 g/dL (6.6-8.7) L Albumin 3.7 g/dL (3.5-5.2) Globulin 1.9 g/dL Albumin/Globulin Ratio 1.9 (1.0-2.7) Urine Color Pale yellow Urine Appearance Clear Urine pH 6.5 (4.5-8.0) Urine Specific Jal 1.015 (1.005-1.035) Urine Protein Negative (NEGATIVE) Urine Glucose (UA) Negative (NEGATIVE) Urine Ketones Negative (NEGATIVE) Urine Occult Blood Negative (NEGATIVE) Urine Nitrite Negative (NEGATIVE) Urine Bilirubin Negative (NEGATIVE) Urine Urobilinogen Normal MG/DL (0.0-1.0) Urine Leukocyte Esterase Negative (NEGATIVE) Urine Opiates Screen Positive (NEGATIVE) H Urine Barbiturates Screen Negative (NEGATIVE) Phencyclidine (PCP) Screen Negative (NEGATIVE) Urine Amphetamines Screen Negative (NEGATIVE) Urine Benzodiazepines Screen Negative (NEGATIVE) Urine Cocaine Screen Negative (NEGATIVE) Urine Marijuana (THC) Screen Negative (NEGATIVE) Last Vital Signs Date Time Temp Pulse Resp B/P Pulse Ox O2 Delivery O2 Flow Rate FiO2 11/22/16 09:19 98.2 74 16 184/115 97 Room Air Status: improved Disposition: ADMITTED INPATIENT Condition: Serious Johnnie Zavala M.D. Nov 22, 2016 09:45
[2016-11-22] MEDS ORDERED: DiphenhydrAMINE 50mg/ml Inj ONE (09:48)
[2016-11-22] MEDS ORDERED: DiphenhydrAMINE 50mg/ml Inj IM ONE (10:00)
[2016-11-22 11:15] VITALS: BP 169/119
[2016-11-22] MEDS ORDERED: HYDROmorphone 1mg/ml Carpuject IM ONE ×2 (12:00→14:00)
[2016-11-22] MEDS ORDERED: cloNIDine 0.2mg Tab ORAL ONE (12:15)
[2016-11-22 13:13] LABS: BASOPHILS % (AUTO) 1.4 % (0.0-2.0); EOSINOPHILS % (AUTO) 1.7 % (0.0-3.0); LYMPHOCYTES % (AUTO) 28.9 % (20.0-45.0); MEAN CORPUSCULAR HEMOGLOBIN 31.5 PG (27.0-31.0); MEAN CORPUSCULAR HGB CONC 32.7 G/DL (32.0-36.0); MEAN CORPUSCULAR VOLUME 96 FL (80-99); MEAN PLATELET VOLUME 7.2 FL (6.5-10.1); MONOCYTES % (AUTO) 6.4 % (1.0-10.0); NEUTROPHILS % (AUTO) 61.7 % (45.0-75.0); PLATELET COUNT 160 K/UL (150-450); RED BLOOD COUNT 5.17 M/UL (4.70-6.10); RED CELL DISTRIBUTION WIDTH 12.6 % (11.6-14.8); WHITE BLOOD COUNT 8.3 K/UL (4.8-10.8)
[2016-11-22 13:14] LABS: APPEARANCE,URINE CLEAR; KETONES,URINE NEGATIVE (NEGATIVE); LEUKOCYTE ESTERASE ,URINE NEGATIVE (NEGATIVE); NITRITE,URINE NEGATIVE (NEGATIVE); PH,URINE 6.5 (4.5-8.0); PROTEIN,URINE NEGATIVE (NEGATIVE); UROBILINOGEN,URINE NORMAL MG/DL (0.0-1.0)
[2016-11-22 13:17] VITALS: BP 165/105
[2016-11-22 13:25] LABS: ALANINE AMINOTRANSFERASE 48 U/L (3-41); ALBUMIN/GLOBULIN RATIO 1.9 (1.0-2.7); ANION GAP 9 (5-15); ASPARTATE AMINO TRANSFERASE 29 U/L (5-40); CALCIUM 8.9 mg/dL (8.6-10.2); CARBON DIOXIDE 27 mEQ/L (20-30); CHLORIDE 101 mEQ/L (98-107); CREATININE 1.2 mg/dL (0.7-1.2); GLOMERULAR FILTRATION RATE > 60 mL/min (>60); HEMOLYSIS 115; POTASSIUM 4.5 mEQ/L (3.4-4.9); SODIUM 137 mEQ/L (135-145); TOTAL PROTEIN 5.6 g/dL (6.6-8.7)
[2016-11-22] MEDS ORDERED: Morphine Sulfate 4mg/ml Inj IVP PRN (14:45)
[2016-11-22] MEDS ORDERED: Mylanta II UD 30ml ORAL PRN (14:45)
[2016-11-22] MEDS ORDERED: Miralax 17gm pkt ORAL PRN (14:45)
[2016-11-22] MEDS ORDERED: Morphine Sulfate 2mg/ml Inj IVP PRN (14:45)
[2016-11-22] MEDS ORDERED: Norco 10mg/325mg tab ORAL PRN (14:45)
[2016-11-22] MEDS ORDERED: HYDROmorphone 4mg tab ORAL PRN (14:45)
[2016-11-22 15:16] VITALS: BP 142/80
--- NOTE | 2016-11-22 15:23 | General Progress Note ---
Assessment/Plan Assessment/Plan (1) Multiple Sclerosis (2) Neuropathic pain (3) Cervical DDD (4) Cervical spondylosis (5) Lumbar DDD (6) Lumbar spondylosis (7) Narcotic Dependency Patient will be started on the Dilaudid 1mg IV Q2H PRN breakthrough pain and Dilaudid 2mg IV Q4H PRN severe pain. Pt was d/w Dr. Scott and he concurred. Thank you for the courtesy of this consultation. Subjective Date patient seen: Nov 22, 2016 Time patient seen: 02:45 - pm Allergies: Coded Allergies: KETOROLAC (Verified Allergy, Severe, Anaphylaxis, 06/19/15) Subjective Constitutional: Reports: weakness, Denies: chills, diaphoresis, fever, malaise , no symptoms, other HEENT: Denies: blurred vision, double vision, ear discharge, ear pain, eye pain , mouth pain, mouth swelling, no symptoms, nose congestion, nose pain, other, tearing, throat pain, throat swelling Cardiovascular: Denies: chest pain, edema, irregular heart rate, lightheadedness, no symptoms, other, palpitations, syncope Respiratory: Denies: SOB at rest, SOB with excertion, cough, no symptoms, orthopnea, other, shortness of breath, sputum, stridor, wheezing Gastrointestinal/Abdominal: Denies: abdomen distended, abdominal pain, black stools, blood in stool, constipated, diarrhea, difficulty swallowing, nausea, no symptoms, other, poor appetite, poor fluid intake, rectal bleeding, tarry stools, vomiting Genitourinary: Denies: burning, discharge, flank pain, frequency, hematuria, incontinence, no symptoms, other, pain, urgency Neurologic/Psychiatric: Reports: weakness, Denies: anxiety, depressed, emotional problems, headache, no symptoms, numbness, other, paresthesia, pre- existing deficit, seizure, tingling, tremors Endocrine: Denies: excessive sweating, flushing, increased hunger, increased thirst, increased urine, intolerance to cold, intolerance to heat, no symptoms, other, unexplained weight gain, unexplained weight loss Hematologic/Lymphatic: Denies: anemia, easy bleeding, easy bruising, no symptoms, other Subjective Pt is a known patient from prior admission and has been admitted under the care of Dr. Frank. He continues to c/o severe weakness and pain. We were consulted so patient would have adequate pain control while her in the hospital. Objective Last 24 Hour Vital Signs Date Time Temp Pulse Resp B/P Pulse Ox O2 Delivery O2 Flow Rate FiO2 11/22/16 14:01 86 16 134/88 99 Room Air 11/22/16 13:17 97.2 79 12 165/105 96 Room Air 11/22/16 12:25 169/109 11/22/16 11:15 96.9 60 12 169/119 98 Room Air 11/22/16 10:15 72 16 Room Air 11/22/16 10:14 98.3 11/22/16 09:19 98.2 74 16 184/115 97 Room Air Laboratory Tests 11/22/16 12:56: White Blood Count 8.3, Red Blood Count 5.17, Hemoglobin 16.3, Hematocrit 49.8, Mean Corpuscular Volume 96, Mean Corpuscular Hemoglobin 31.5H, Mean Corpuscular Hemoglobin Concent 32.7, Red Cell Distribution Width 12.6, Platelet Count 160, Mean Platelet Volume 7.2, Neutrophils (%) (Auto) 61.7, Lymphocytes (%) (Auto) 28.9, Monocytes (%) (Auto) 6.4, Eosinophils (%) (Auto) 1.7, Basophils (%) (Auto ) 1.4, Sodium Level 137, Potassium Level 4.5, Chloride Level 101, Carbon Dioxide Level 27, Anion Gap 9, Blood Urea Nitrogen 18, Creatinine 1.2, Estimat Glomerular Filtration Rate > 60, Glucose Level 136H, Calcium Level 8.9, Total Bilirubin 0.4, Aspartate Amino Transf (AST/SGOT) 29, Alanine Aminotransferase ( ALT/SGPT) 48H, Alkaline Phosphatase 96, Total Protein 5.6L, Albumin 3.7, Globulin 1.9, Albumin/Globulin Ratio 1.9 11/22/16 13:00: Urine Color Pale yellow, Urine Appearance Clear, Urine pH 6.5, Urine Specific [place] 1.015, Urine Protein Negative, Urine Glucose (UA) Negative, Urine Ketones Negative, Urine Occult Blood Negative, Urine Nitrite Negative, Urine Bilirubin Negative, Urine Urobilinogen Normal, Urine Leukocyte Esterase Negative , Urine Opiates Screen PositiveH, Urine Barbiturates Screen Negative, Phencyclidine (PCP) Screen Negative, Urine Amphetamines Screen Negative, Urine Benzodiazepines Screen Negative, Urine Cocaine Screen Negative, Urine Marijuana (THC) Screen Negative Height (Feet): 6 Weight (Pounds): 220 Objective General Appearance: no apparent distress, alert EENT: PERRL/EOMI, normal ENT inspection Neck: non-tender, normal alignment Cardiovascular: normal peripheral pulses, normal rate, regular rhythm Respiratory/Chest: lungs clear, normal breath sounds Abdomen: non tender, soft Extremities: non-tender Edema: no edema noted Arm (L), no edema noted Arm (R), no edema noted Leg (L), no edema noted Leg (R), no edema noted Pedal (L), no edema noted Pedal (R), no edema noted Generalized Neurologic: alert, oriented x 3 Skin: warm/dry MAYCOL WILEY Nov 22, 2016 15:23
--- NOTE | 2016-11-22 15:25 | Pulmonology Progress Note ---
Subjective Allergies: Coded Allergies: KETOROLAC (Verified Allergy, Severe, Anaphylaxis, 06/19/15) Objective Last 24 Hour Vital Signs Date Time Temp Pulse Resp B/P Pulse Ox O2 Delivery O2 Flow Rate FiO2 11/22/16 15:16 97.6 78 20 142/80 97 Room Air 11/22/16 14:01 86 16 134/88 99 Room Air 11/22/16 13:17 97.2 79 12 165/105 96 Room Air 11/22/16 12:25 169/109 11/22/16 11:15 96.9 60 12 169/119 98 Room Air 11/22/16 10:15 72 16 Room Air 11/22/16 10:14 98.3 11/22/16 09:19 98.2 74 16 184/115 97 Room Air Laboratory Tests 11/22/16 12:56: White Blood Count 8.3, Red Blood Count 5.17, Hemoglobin 16.3, Hematocrit 49.8, Mean Corpuscular Volume 96, Mean Corpuscular Hemoglobin 31.5H, Mean Corpuscular Hemoglobin Concent 32.7, Red Cell Distribution Width 12.6, Platelet Count 160, Mean Platelet Volume 7.2, Neutrophils (%) (Auto) 61.7, Lymphocytes (%) (Auto) 28.9, Monocytes (%) (Auto) 6.4, Eosinophils (%) (Auto) 1.7, Basophils (%) (Auto ) 1.4, Sodium Level 137, Potassium Level 4.5, Chloride Level 101, Carbon Dioxide Level 27, Anion Gap 9, Blood Urea Nitrogen 18, Creatinine 1.2, Estimat Glomerular Filtration Rate > 60, Glucose Level 136H, Calcium Level 8.9, Total Bilirubin 0.4, Aspartate Amino Transf (AST/SGOT) 29, Alanine Aminotransferase ( ALT/SGPT) 48H, Alkaline Phosphatase 96, Total Protein 5.6L, Albumin 3.7, Globulin 1.9, Albumin/Globulin Ratio 1.9 11/22/16 13:00: Urine Color Pale yellow, Urine Appearance Clear, Urine pH 6.5, Urine Specific [place] 1.015, Urine Protein Negative, Urine Glucose (UA) Negative, Urine Ketones Negative, Urine Occult Blood Negative, Urine Nitrite Negative, Urine Bilirubin Negative, Urine Urobilinogen Normal, Urine Leukocyte Esterase Negative , Urine Opiates Screen PositiveH, Urine Barbiturates Screen Negative, Phencyclidine (PCP) Screen Negative, Urine Amphetamines Screen Negative, Urine Benzodiazepines Screen Negative, Urine Cocaine Screen Negative, Urine Marijuana (THC) Screen Negative Current Medications Medications (Trade) Dose Ordered Sig/Jessica Route PRN Reason Start Time Stop Time Status Last Admin Dose Admin Acetaminophen (Tylenol) 650 mg Q4H PRN ORAL fever 11/22/16 14:45 12/22/16 14:44 Acetaminophen/ Hydrocodone Bitart ([place] 10/325) 1 ea Q4H PRN ORAL For Pain 11/22/16 14:45 11/29/16 14:44 UNV Al Hydroxide/Mg Hydroxide (Mylanta II) 30 ml Q6H PRN ORAL dyspepsia 11/22/16 14:45 12/22/16 14:44 Atenolol (Tenormin) 50 mg DAILY ORAL 11/23/16 09:00 12/23/16 08:59 UNV Chlorhexidine Gluconate (Jaqueline-Hex 2%) 1 applic QHS TOPIC 11/22/16 21:00 12/22/16 20:59 Clonidine HCl (Catapres) 0.1 mg EVERY 12 HOURS ORAL 11/22/16 21:00 12/22/16 20:59 Dextrose (Dextrose 50%) STAT PRN IV Hypoglycemia 11/22/16 14:45 12/22/16 14:44 Duloxetine HCl (Cymbalta) 40 mg DAILY ORAL 11/23/16 09:00 12/23/16 08:59 Gabapentin (Neurontin) 300 mg THREE TIMES A DAY ORAL 11/22/16 18:00 12/22/16 17:59 Heparin Sodium (Porcine) (Heparin 5000 units/ml) 5,000 units EVERY 12 HOURS SUBQ 11/22/16 21:00 12/22/16 20:59 Heparin Sodium/ Sodium Chloride (Heparin 2000 units/Ns 1000ml premix) 2,000 unit ONCE ONCE INJ 11/22/16 16:00 11/22/16 16:01 Hydrochlorothiazide (Hydrodiuril) 50 mg DAILY ORAL 11/23/16 09:00 12/23/16 08:59 Hydromorphone HCl (Dilaudid) 1 mg Q2H PRN IM breakthrough pain 11/22/16 14:45 11/29/16 14:44 Hydromorphone HCl (Dilaudid) 1 mg Q2H PRN IVP BREAKTHROUGH PAIN 11/22/16 14:30 11/29/16 14:29 Hydromorphone HCl (Dilaudid) 2 mg Q4H PRN IM severe pain 11/22/16 14:45 11/29/16 14:44 Hydromorphone HCl (Dilaudid) 2 mg Q4H PRN IVP Severe Pain (Pain Scale 7-10) 11/22/16 14:30 11/29/16 14:29 Hydromorphone HCl (Dilaudid) 4 mg EVERY 4 HOURS PRN ORAL Severe Pain (Pain Scale 7-10) 11/22/16 14:45 11/29/16 14:44 UNV Lidocaine HCl (Xylocaine 1% 30ml) 30 ml ONCE ONCE INJ 11/22/16 16:00 11/22/16 16:01 Lorazepam (Ativan 2mg/ml 1ml) 0.5 mg Q4H PRN IV For Anxiety 11/22/16 14:45 11/29/16 14:44 Metoprolol Tartrate (Lopressor) 50 mg EVERY 12 HOURS ORAL 11/22/16 21:00 12/22/16 20:59 UNV Morphine Sulfate (Morphine Sulfate) 2 mg EVERY 4 HOURS PRN IVP For Pain 4-6 11/22/16 14:45 11/29/16 14:44 UNV Morphine Sulfate (Morphine Sulfate) 4 mg Q4H PRN IVP For Pain 7-10 11/22/16 14:45 11/29/16 14:44 UNV Ondansetron HCl (Zofran) 4 mg Q6H PRN IVP Nausea & Vomiting 11/22/16 14:45 12/22/16 14:44 Polyethylene Glycol (Miralax) 17 gm DAILY ORAL 11/23/16 09:00 12/23/16 08:59 Polyethylene Glycol (Miralax) 17 gm HSPRN PRN ORAL Constipation 11/22/16 14:45 12/22/16 14:44 UNV Zolpidem Tartrate (Ambien) 5 mg HSPRN PRN ORAL Insomnia 11/22/16 14:45 12/22/16 14:44 JOSHUA HARRIS Nov 22, 2016 15:25
[2016-11-22] MEDS ORDERED: Lidocaine 1% Plain 30 ml INJ ONE (16:00)
[2016-11-22] MEDS ORDERED: Heparin 2000 units/Ns 1000ml INJ ONE (16:00)
[2016-11-22] MEDS: DiphenhydrAMINE 50mg/ml Inj IM PRN (18:04)
--- NOTE | 2016-11-22 19:20 | Neurology Progress Note ---
Objective Physical Exam Last Vital Signs Date Time Temp Pulse Resp B/P Pulse Ox O2 Delivery O2 Flow Rate FiO2 11/22/16 18:03 78 142/80 11/22/16 15:16 97.6 20 97 Room Air Laboratory Tests Test 11/22/16 12:56 11/22/16 13:00 White Blood Count 8.3 K/UL (4.8-10.8) Red Blood Count 5.17 M/UL (4.70-6.10) Hemoglobin 16.3 G/DL (14.2-18.0) Hematocrit 49.8 % (42.0-52.0) Mean Corpuscular Volume 96 FL (80-99) Mean Corpuscular Hemoglobin 31.5 PG (27.0-31.0) H Mean Corpuscular Hemoglobin Concent 32.7 G/DL (32.0-36.0) Red Cell Distribution Width 12.6 % (11.6-14.8) Platelet Count 160 K/UL (150-450) Mean Platelet Volume 7.2 FL (6.5-10.1) Neutrophils (%) (Auto) 61.7 % (45.0-75.0) Lymphocytes (%) (Auto) 28.9 % (20.0-45.0) Monocytes (%) (Auto) 6.4 % (1.0-10.0) Eosinophils (%) (Auto) 1.7 % (0.0-3.0) Basophils (%) (Auto) 1.4 % (0.0-2.0) Sodium Level 137 mEQ/L (135-145) Potassium Level 4.5 mEQ/L (3.4-4.9) Chloride Level 101 mEQ/L (98-107) Carbon Dioxide Level 27 mEQ/L (20-30) Anion Gap 9 (5-15) Blood Urea Nitrogen 18 mg/dL (7-23) Creatinine 1.2 mg/dL (0.7-1.2) Estimat Glomerular Filtration Rate > 60 mL/min (>60) Glucose Level 136 mg/dL (74-106) H Calcium Level 8.9 mg/dL (8.6-10.2) Total Bilirubin 0.4 mg/dL (0.0-1.2) Aspartate Amino Transf (AST/SGOT) 29 U/L (5-40) Alanine Aminotransferase (ALT/SGPT) 48 U/L (3-41) H Alkaline Phosphatase 96 U/L (40-129) Total Protein 5.6 g/dL (6.6-8.7) L Albumin 3.7 g/dL (3.5-5.2) Globulin 1.9 g/dL Albumin/Globulin Ratio 1.9 (1.0-2.7) Urine Color Pale yellow Urine Appearance Clear Urine pH 6.5 (4.5-8.0) Urine Specific [place] 1.015 (1.005-1.035) Urine Protein Negative (NEGATIVE) Urine Glucose (UA) Negative (NEGATIVE) Urine Ketones Negative (NEGATIVE) Urine Occult Blood Negative (NEGATIVE) Urine Nitrite Negative (NEGATIVE) Urine Bilirubin Negative (NEGATIVE) Urine Urobilinogen Normal MG/DL (0.0-1.0) Urine Leukocyte Esterase Negative (NEGATIVE) Urine Opiates Screen Positive (NEGATIVE) H Urine Barbiturates Screen Negative (NEGATIVE) Phencyclidine (PCP) Screen Negative (NEGATIVE) Urine Amphetamines Screen Negative (NEGATIVE) Urine Benzodiazepines Screen Negative (NEGATIVE) Urine Cocaine Screen Negative (NEGATIVE) Urine Marijuana (THC) Screen Negative (NEGATIVE) Impression/Recommendations Recommendations # [id number] MARKOS CROOKS Nov 22, 2016 19:20
[2016-11-22 20:30] VITALS: BP 139/100
--- NOTE | 2016-11-22 20:30 | History and Physical Report ---
DATE OF ADMISSION: 11/22/2016 TIME: 1 p.m. CONSULTANTS: 1. Dayo Conrad M.D. 2. Fletcher Scott M.D. 3. Jassi Scott M.D. CHIEF COMPLAINT: Status post recent fall, back pain and leg pain. BRIEF HISTORY: The patient is a 51-year-old male, who lives at home presents to [facility] with history of falling yesterday, was walking off the curb, apparently felt weak and fell down. He did not have any particular pain, but later on he developed back pain and leg pain. The patient's pain is not relieved and he came to [place], diagnosed as above and being admitted to medical floor further treatment. Currently, calm in [facility]. No other complaints. PAST MEDICAL HISTORY: MS, chronic pain, hypertension, and CAD. PAST SURGICAL HISTORY: None. MEDICATIONS: Keflex, Dilaudid, Benadryl, and Phenergan. ALLERGIES: Toradol. SOCIAL HISTORY: No smoke. No alcohol. No intravenous drug abuse. FAMILY HISTORY: Noncontributory. REVIEW OF SYSTEMS: No chest pain or shortness of breath. No nausea, vomiting or diarrhea. PHYSICAL EXAMINATION: GENERAL: Calm in [facility], oriented x3, in no acute distress. VITAL SIGNS: Temperature is 97 degrees, pulse 72, respirations 12, and blood pressure 165/105. CARDIOVASCULAR: No murmurs. LUNGS: Distant and clear. ABDOMEN: Positive bowel sounds. Soft, nontender, and nondistended. EXTREMITIES: No cyanosis, clubbing, or edema. NEUROLOGIC: The patient moves all extremities, but slightly weak. LABORATORY AND DIAGNOSTIC DATA: CBC is normal. BMP showed glucose 136, otherwise BMP is normal. Urine toxicology positive for opiates. Urinalysis is negative. ASSESSMENT: 1. Fall. 2. Bilateral leg pain. 3. Low back pain. 4. Multiple sclerosis. 5. Chronic pain. 6. Hypertension. 7. Coronary artery disease. 8. Diabetes. PLAN: Pain control. Blood pressure and blood sugar control. Dietary follow. OT/PT. CBC and BMP in the morning. Resume home medications. Dr. Conrad, Dr. Scott, Dr. Scott, and Dr. Ferguson to consult. We will continue to follow this patient. Dennis Hoffman D.O. DR: ERICA JOB#: [id number] CC:
[2016-11-22] MEDS: Dyna-Hex 2% Top Sol 8oz TOPIC SCH (21:00)
[2016-11-22] MEDS ORDERED: Metoprolol 50mg tab ORAL SCH (21:00)
[2016-11-22] MEDS: Heparin 5000 units/ml inj SUBQ SCH (21:36)
[2016-11-22] MEDS: methylPREDNISolone Sod Succ 1,000 MG in NS 275 ML IVPB SCH (22:07)
[2016-11-23] VITALS (8 sets, daily range): BP systolic 148–180; BP diastolic 91–121
[2016-11-23] MEDS: DiphenhydrAMINE 50mg/ml Inj IVP PRN ×2 (00:07→17:46)
[2016-11-23] MEDS: Zolpidem 5mg tab ORAL PRN (01:35)
--- NOTE | 2016-11-23 05:15 | Consultation ---
DATE OF CONSULTATION: 11/22/2016 NOTE: "POOR AUDIO QUALITY" NEUROLOGICAL CONSULTATION CONSULTING PHYSICIAN: Fletcher Scott M.D. REQUESTING PHYSICIAN: Dennis Hoffman D.O. HISTORY OF PRESENT ILLNESS: The patient is a 51-year-old man with a chronic relapsing-remitting form of multiple sclerosis was recently admitted and discharged only a week ago presenting with exacerbation of symptomatology, placed on a short course of steroids with prednisone starting at 60 mg tapering over 60 days. The patient indicated that he felt somewhat better, but then the day prior to admission while walking on the street, he tripped and legs gave out. He fell down landing on the right side of the body, but spraining rest of the upper and mid lower back and developing acute pain, pain in both lower extremities, left hip. So, he felt again high level of pain and brought to this hospital for further assessment. Lumbar films were done, which revealed no fracture and no dislocation. He described the pain as level 9/10. His vital signs on admission included blood pressure 184/115 and temperature 98.2. The patient was started on zolpidem and Dilaudid. At this point, the patient continued to have pain and discomfort. Neurological consult was requested for further reassessment. The patient was known to have chronic multiple sclerosis since 2002. He had several bouts of acute pain with minimal modularity, presumably felt no improvement. He continued to have signs of MS with weakness in the left lower extremity causing gait abnormality. In addition, he developed chronic pain syndrome, presented with persistent low back pain. His MRI of the brain from 2015 revealed chronic multiple sclerosis lesions. His most recent CAT scan of the brain from 11/12/2016 revealed mild nonspecific white matter hypoattenuation consistent with chronic small vessel disease. He had MRI of the thoracic spine revealing multiple cord abnormality, which most likely represents multiple fossa cord demyelination and cord T10 enhancement consistent with acute demyelination. Indeterminate of the other demyelinative disease is also possible. fragment unchanged from his previous study. We did an MRI of the cervical spine revealing abnormal cord signal consistent with demyelination at C2, C3, C7, and T1, which lesion is being new according to from his previous examination, although indeterminate. The new findings of right paracentral disk protrusion at C4-C5 with impingement on the right side was also noted. Other degenerative changes were also described. On current admission, lab work was obtained revealing normal CBC and normal chemistry panel, except glucose 136, ALT 48. Toxicology panel positive for opiates. Normal urinalysis. PAST MEDICAL HISTORY: The patient has a history of chronic pain syndrome, opiate dependent, tension headache, history of acute coronary syndrome, at times drug-seeking behavior, atypical chest pain, chronic low back pain, anxiety disorder, and hypertension. MEDICATIONS: Treatment prior to admission included aspirin, atenolol, clonidine, diphenhydramine, Cymbalta, gabapentin, hydrochlorothiazide, Dilaudid, Amasa, ibuprofen, metoprolol, and zolpidem. ALLERGIES: Ketorolac. FAMILY HISTORY: Remarkable for his son, who has multiple sclerosis. SOCIAL HISTORY: The patient is . Denies alcohol or illicit drug abuse. REVIEW OF SYMPTOMS: Severe pain in his both lower extremities, almost weakness in left lower extremity, and left hip pain. Left foot pain, upper back, neck, and upper extremities. No chest pain. No palpitations. No respiratory problems. Denies abdominal pain or discomfort. No urine or bowel incontinence. PHYSICAL EXAMINATION: GENERAL: A well-developed and well-nourished man, not in acute distress, lying comfortably in bed. VITAL SIGNS: Now stable, although blood pressure is elevated at 176/102. He is afebrile. HEENT: Head, normocephalic. No evidence of injuries. MUSCULOSKELETAL: There is palpable tenderness in both upper back and upper extremity, but predominantly pain in the lumbar region, and left hip. Distal pulses 1+ symmetric. MENTAL STATUS: Most labile intent. Cognition is normal. CRANIAL NERVE II: Pupils both responding to light and accommodation. Extraocular movements intact. No nystagmus. CRANIAL NERVE V: Normal corneal responses. CRANIAL NERVE VII: No facial asymmetry. CRANIAL NERVE VIII: Normal hearing. CRANIAL NERVES IX THROUGH XII: Tongue is in midline. Symmetric palate elevation. MOTOR EXAMINATION: Revealed normal muscle tone and strength in both upper extremities, weakness 4-/5 left lower extremity, 5-/5 right lower extremity, deep tendon reflexes, 2+ biceps, triceps, and knee jerk. Plantar responses are mute. SENSORY EXAMINATION: Normal response to pin stimulation in both upper and lower extremities. IMPRESSION: 1. Recurrent-remitting multiple sclerosis with exacerbation. 2. Chronic pain syndrome, opiate dependent. 3. Hypertension. 4. Anxiety disorder. 5. Thoracic and lumbar discogenic disease. RECOMMENDATION: 1. The patient was offered to start on Gilen[place], as a PO immunomodulator. 2. Continue with the pain management. 3. Have additional course of steroids with Solu-Medrol 150 mg x3 days. Thank you for allowing me to see this interesting patient in neurological consultation. Fletcher Antolin Scott DR: JAIR JOB#: [id number] CC:
--- NOTE | 2016-11-23 07:59 | Pulmonology Progress Note ---
Assessment/Plan Assessment/Plan ASSESSMENT s/p fall MS recent onset of gout HTN urgency CAD neuropathic pain cervical DDD cervical spondylosis lumbar DDD lumbar spondylosis narcotic dependence PLAN OF CARE MS floor steroids IV as per neuro neuro follows pain management pain specialist follows BP management with BB and Clonidine , watch HR, optimize as needed PT/OT fall precautions DVT prophylaxis bowel regimen case discussed and evaluated by supervising physician Subjective Allergies: Coded Allergies: KETOROLAC (Verified Allergy, Severe, Anaphylaxis, 06/19/15) Subjective Leukocytosis today, afebrile denies chest pain, SOB, new onset of weakness Objective Last 24 Hour Vital Signs Date Time Temp Pulse Resp B/P Pulse Ox O2 Delivery O2 Flow Rate FiO2 11/23/16 04:53 97.8 11/23/16 04:00 97.8 78 18 151/91 96 Room Air 11/23/16 00:05 98.0 78 18 148/94 97 Room Air 11/22/16 21:33 139/100 11/22/16 20:30 98.6 76 18 139/100 96 Room Air 11/22/16 18:03 78 142/80 11/22/16 15:16 97.6 78 20 142/80 97 Room Air 11/22/16 14:01 86 16 134/88 99 Room Air 11/22/16 13:17 97.2 79 12 165/105 96 Room Air 11/22/16 12:25 169/109 11/22/16 11:15 96.9 60 12 169/119 98 Room Air 11/22/16 10:15 72 16 Room Air 11/22/16 10:14 98.3 11/22/16 09:19 98.2 74 16 184/115 97 Room Air Intake and Output 11/22/16 11/23/16 19:00 07:00 Intake Total 480 ml 875 ml Balance 480 ml 875 ml Intake Oral 480 ml 600 ml IV Total 275 ml # Voids 2 5 # Bowel Movements 1 General Appearance: WD/WN, no acute distress, other - A/A/O x3 AA male HEENT: normocephalic, atraumatic, anicteric Respiratory/Chest: lungs clear Cardiovascular: normal peripheral pulses, normal rate, no JVD Abdomen: normal bowel sounds, soft, non tender, non distended Extremities: no edema, pedal pulses normal Neurologic/Psychiatric: abnormal gait - wuth cane, alert, oriented x 3, responsive Musculoskeletal: normal muscle bulk Laboratory Tests 11/22/16 12:56: White Blood Count 8.3, Red Blood Count 5.17, Hemoglobin 16.3, Hematocrit 49.8, Mean Corpuscular Volume 96, Mean Corpuscular Hemoglobin 31.5H, Mean Corpuscular Hemoglobin Concent 32.7, Red Cell Distribution Width 12.6, Platelet Count 160, Mean Platelet Volume 7.2, Neutrophils (%) (Auto) 61.7, Lymphocytes (%) (Auto) 28.9, Monocytes (%) (Auto) 6.4, Eosinophils (%) (Auto) 1.7, Basophils (%) (Auto ) 1.4, Sodium Level 137, Potassium Level 4.5, Chloride Level 101, Carbon Dioxide Level 27, Anion Gap 9, Blood Urea Nitrogen 18, Creatinine 1.2, Estimat Glomerular Filtration Rate > 60, Glucose Level 136H, Calcium Level 8.9, Total Bilirubin 0.4, Aspartate Amino Transf (AST/SGOT) 29, Alanine Aminotransferase ( ALT/SGPT) 48H, Alkaline Phosphatase 96, Total Protein 5.6L, Albumin 3.7, Globulin 1.9, Albumin/Globulin Ratio 1.9 11/22/16 13:00: Urine Color Pale yellow, Urine Appearance Clear, Urine pH 6.5, Urine Specific [place] 1.015, Urine Protein Negative, Urine Glucose (UA) Negative, Urine Ketones Negative, Urine Occult Blood Negative, Urine Nitrite Negative, Urine Bilirubin Negative, Urine Urobilinogen Normal, Urine Leukocyte Esterase Negative , Urine Opiates Screen PositiveH, Urine Barbiturates Screen Negative, Phencyclidine (PCP) Screen Negative, Urine Amphetamines Screen Negative, Urine Benzodiazepines Screen Negative, Urine Cocaine Screen Negative, Urine Marijuana (THC) Screen Negative Current Medications Medications (Trade) Dose Ordered Sig/Jessica Route PRN Reason Start Time Stop Time Status Last Admin Dose Admin Acetaminophen (Tylenol) 650 mg Q4H PRN ORAL fever 11/22/16 14:45 12/22/16 14:44 Al Hydroxide/Mg Hydroxide (Mylanta II) 30 ml Q6H PRN ORAL dyspepsia 11/22/16 14:45 12/22/16 14:44 Atenolol (Tenormin) 50 mg DAILY ORAL 11/22/16 18:00 12/22/16 17:59 11/22/16 18:03 Chlorhexidine Gluconate (Jaqueline-Hex 2%) 1 applic QHS TOPIC 11/22/16 21:00 12/22/16 20:59 Clonidine HCl (Catapres) 0.1 mg EVERY 12 HOURS ORAL 11/22/16 21:00 12/22/16 20:59 11/22/16 21:33 Dextrose (Dextrose 50%) STAT PRN IV Hypoglycemia 11/22/16 14:45 12/22/16 14:44 Diphenhydramine HCl (Benadryl) 25 mg Q6H PRN IVP Itching 11/22/16 23:15 12/22/16 23:14 11/23/16 00:07 Diphenhydramine HCl 25 mg 25 mg Q6H PRN IM Itching 11/22/16 17:15 12/22/16 17:14 11/22/16 18:04 Duloxetine HCl (Cymbalta) 40 mg DAILY ORAL 11/23/16 09:00 12/23/16 08:59 Gabapentin (Neurontin) 300 mg THREE TIMES A DAY ORAL 11/22/16 18:00 12/22/16 17:59 11/22/16 18:03 Heparin Sodium (Porcine) (Heparin 5000 units/ml) 5,000 units EVERY 12 HOURS SUBQ 11/22/16 21:00 12/22/16 20:59 11/22/16 21:36 Hydrochlorothiazide (Hydrodiuril) 50 mg DAILY ORAL 11/23/16 09:00 12/23/16 08:59 Hydromorphone HCl (Dilaudid) 1 mg Q2H PRN IM breakthrough pain 11/22/16 14:45 11/29/16 14:44 11/22/16 18:05 Hydromorphone HCl (Dilaudid) 1 mg Q2H PRN IVP BREAKTHROUGH PAIN 11/22/16 14:30 11/29/16 14:29 Hydromorphone HCl (Dilaudid) 2 mg Q4H PRN IM severe pain 11/22/16 14:45 11/29/16 14:44 11/22/16 15:24 Hydromorphone HCl (Dilaudid) 2 mg Q4H PRN IVP Severe Pain (Pain Scale 7-10) 11/22/16 14:30 11/29/16 14:29 11/23/16 04:12 Lorazepam (Ativan 2mg/ml 1ml) 0.5 mg Q4H PRN IV For Anxiety 11/22/16 14:45 11/29/16 14:44 Methylprednisolone Sodium Succinate/ Sodium Chloride (SOLU-Medrol/ Sodium Chloride) 275 ml @ 275 mls/hr QHS IVPB 11/22/16 21:00 12/22/16 20:59 11/22/16 22:07 Ondansetron HCl (Zofran) 4 mg Q6H PRN IVP Nausea & Vomiting 11/22/16 14:45 12/22/16 14:44 Polyethylene Glycol (Miralax) 17 gm DAILY ORAL 11/23/16 09:00 12/23/16 08:59 Polyethylene Glycol (Miralax) 17 gm HSPRN PRN ORAL Constipation 11/22/16 14:45 12/22/16 14:44 Zolpidem Tartrate (Ambien) 5 mg HSPRN PRN ORAL Insomnia 11/22/16 14:45 12/22/16 14:44 11/23/16 01:35 Guilherme BanerjeeKings County Hospital CenterReena Johnson NP Nov 23, 2016 07:59
[2016-11-23] MEDS: Miralax 17gm pkt ORAL SCH (08:23)
--- NOTE | 2016-11-23 09:11 | General Progress Note ---
Assessment/Plan Problem List: (1) Neck pain ICD Codes: M54.2 - Cervicalgia SNOMED: 99721149 (2) Hypertension ICD Codes: I10 - Essential (primary) hypertension SNOMED: 82923720 (3) Back sprain ICD Codes: S23.9XXA - Sprain of unspecified parts of thorax, initial encounter SNOMED: 861036256 (4) Opiate dependence ICD Codes: F11.20 - Opioid dependence, uncomplicated SNOMED: 78544619 (5) Pain ICD Codes: R52 - Pain, unspecified SNOMED: 51527931 (6) Diabetes ICD Codes: E11.9 - Diabetes SNOMED: 00566150 (7) Multiple sclerosis, secondary progressive ICD Codes: G35 - Multiple sclerosis, secondary progressive SNOMED: 576578355 (8) Intractable pain ICD Codes: R52 - Pain, unspecified SNOMED: 58172158 Status: stable, progressing, tolerating diet Assessment/Plan ot pt diet pain control cbc bmp am Subjective Constitutional: Reports: weakness Allergies: Coded Allergies: KETOROLAC (Verified Allergy, Severe, Anaphylaxis, 06/19/15) All Systems: reviewed and negative except above Subjective c/o sl lbp Objective Last 24 Hour Vital Signs Date Time Temp Pulse Resp B/P Pulse Ox O2 Delivery O2 Flow Rate FiO2 11/23/16 08:25 90 177/115 11/23/16 08:23 177/115 11/23/16 08:21 98.4 90 20 177/115 94 Room Air 11/23/16 04:53 97.8 11/23/16 04:00 97.8 78 18 151/91 96 Room Air 11/23/16 00:05 98.0 78 18 148/94 97 Room Air 11/22/16 21:33 139/100 11/22/16 20:30 98.6 76 18 139/100 96 Room Air 11/22/16 18:03 78 142/80 11/22/16 15:16 97.6 78 20 142/80 97 Room Air 11/22/16 14:01 86 16 134/88 99 Room Air 11/22/16 13:17 97.2 79 12 165/105 96 Room Air 11/22/16 12:25 169/109 11/22/16 11:15 96.9 60 12 169/119 98 Room Air 11/22/16 10:15 72 16 Room Air 11/22/16 10:14 98.3 11/22/16 09:19 98.2 74 16 184/115 97 Room Air Intake and Output 11/22/16 11/23/16 19:00 07:00 Intake Total 480 ml 875 ml Balance 480 ml 875 ml Intake Oral 480 ml 600 ml IV Total 275 ml # Voids 2 5 # Bowel Movements 1 Laboratory Tests 11/22/16 12:56: White Blood Count 8.3, Red Blood Count 5.17, Hemoglobin 16.3, Hematocrit 49.8, Mean Corpuscular Volume 96, Mean Corpuscular Hemoglobin 31.5H, Mean Corpuscular Hemoglobin Concent 32.7, Red Cell Distribution Width 12.6, Platelet Count 160, Mean Platelet Volume 7.2, Neutrophils (%) (Auto) 61.7, Lymphocytes (%) (Auto) 28.9, Monocytes (%) (Auto) 6.4, Eosinophils (%) (Auto) 1.7, Basophils (%) (Auto ) 1.4, Sodium Level 137, Potassium Level 4.5, Chloride Level 101, Carbon Dioxide Level 27, Anion Gap 9, Blood Urea Nitrogen 18, Creatinine 1.2, Estimat Glomerular Filtration Rate > 60, Glucose Level 136H, Calcium Level 8.9, Total Bilirubin 0.4, Aspartate Amino Transf (AST/SGOT) 29, Alanine Aminotransferase ( ALT/SGPT) 48H, Alkaline Phosphatase 96, Total Protein 5.6L, Albumin 3.7, Globulin 1.9, Albumin/Globulin Ratio 1.9 11/22/16 13:00: Urine Color Pale yellow, Urine Appearance Clear, Urine pH 6.5, Urine Specific [place] 1.015, Urine Protein Negative, Urine Glucose (UA) Negative, Urine Ketones Negative, Urine Occult Blood Negative, Urine Nitrite Negative, Urine Bilirubin Negative, Urine Urobilinogen Normal, Urine Leukocyte Esterase Negative , Urine Opiates Screen PositiveH, Urine Barbiturates Screen Negative, Phencyclidine (PCP) Screen Negative, Urine Amphetamines Screen Negative, Urine Benzodiazepines Screen Negative, Urine Cocaine Screen Negative, Urine Marijuana (THC) Screen Negative Height (Feet): 6 Height (Inches): 0.00 Weight (Pounds): 220 General Appearance: alert EENT: normal ENT inspection Neck: normal alignment Cardiovascular: normal peripheral pulses, normal rate, regular rhythm Respiratory/Chest: chest wall non-tender, lungs clear, normal breath sounds Abdomen: normal bowel sounds, non tender, soft Extremities: normal inspection Edema: no edema noted Arm (L), no edema noted Arm (R), no edema noted Leg (L), no edema noted Leg (R), no edema noted Pedal (L), no edema noted Pedal (R), no edema noted Generalized Neurologic: responsive, motor weakness Skin: normal pigmentation, warm/dry BARBARA RAGLAND Nov 23, 2016 09:11
[2016-11-23] MEDS: Heparin 5000 units/ml inj SUBQ SCH ×2 (09:27→20:31)
[2016-11-23] MEDS: DiphenhydrAMINE 50mg/ml Inj IM PRN (09:31)
[2016-11-23] MEDS ORDERED: Tubing IV Secondary IV ONE (10:40)
[2016-11-23] MEDS ORDERED: NS 275ml ONE (10:40)
[2016-11-23] MEDS: LORazepam Inj 2mg/ml 1ml IV PRN ×2 (11:06→21:20)
[2016-11-23 11:18] LABS: MEAN CORPUSCULAR HEMOGLOBIN 32.2 PG (27.0-31.0); MEAN CORPUSCULAR HGB CONC 33.5 G/DL (32.0-36.0); MEAN CORPUSCULAR VOLUME 96 FL (80-99); MEAN PLATELET VOLUME 7.5 FL (6.5-10.1); PLATELET COUNT 205 K/UL (150-450); RED BLOOD COUNT 4.89 M/UL (4.70-6.10); RED CELL DISTRIBUTION WIDTH 12.4 % (11.6-14.8); WHITE BLOOD COUNT 13.4 K/UL (4.8-10.8)
[2016-11-23 11:43] LABS: ALANINE AMINOTRANSFERASE 50 U/L (3-41); ALBUMIN/GLOBULIN RATIO 2.2 (1.0-2.7); ANION GAP 13 (5-15); ASPARTATE AMINO TRANSFERASE 23 U/L (5-40); CALCIUM 9.4 mg/dL (8.6-10.2); CARBON DIOXIDE 25 mEQ/L (20-30); CHLORIDE 99 mEQ/L (98-107); CREATININE 1.1 mg/dL (0.7-1.2); GLOMERULAR FILTRATION RATE > 60 mL/min (>60); HEMOLYSIS 10; POTASSIUM 4.6 mEQ/L (3.4-4.9); SODIUM 137 mEQ/L (135-145); TOTAL PROTEIN 6.1 g/dL (6.6-8.7)
[2016-11-23] MEDS: HYDROmorphone 1mg/ml Carpuject IVP PRN ×3 (11:49→20:29)
[2016-11-23 11:54] LABS: THYROID STIMULATING HORMONE 0.739 uIU/mL (0.300-4.500)
[2016-11-23 12:01] LABS: BAND NEUTROPHILS % (MANUAL) 0 % (0-8); BASOPHILS % (MANUAL) 0 % (0-2); EOSINOPHILS % (MANUAL) 0 % (0-3); LYMPHOCYTES % (MANUAL) 5 % (20-45); NEUTROPHILS % (MANUAL) 94 % (45-75); PLATELET ESTIMATE ADEQUATE; PLATELET MORPHOLOGY NORMAL; TOTAL CELLS COUNTED 100
--- NOTE | 2016-11-23 14:23 | Neurology Progress Note ---
Interim History Interim History ROS Limited/Unobtainable: No Complaints: l leg weakness, aches pain diffuse Events: less pain Objective Physical Exam Last Vital Signs Date Time Temp Pulse Resp B/P Pulse Ox O2 Delivery O2 Flow Rate FiO2 11/23/16 12:00 97.6 78 19 180/109 98 Room Air Laboratory Tests Test 11/23/16 10:35 White Blood Count 13.4 K/UL (4.8-10.8) #H Red Blood Count 4.89 M/UL (4.70-6.10) Hemoglobin 15.8 G/DL (14.2-18.0) Hematocrit 47.0 % (42.0-52.0) Mean Corpuscular Volume 96 FL (80-99) Mean Corpuscular Hemoglobin 32.2 PG (27.0-31.0) H Mean Corpuscular Hemoglobin Concent 33.5 G/DL (32.0-36.0) Red Cell Distribution Width 12.4 % (11.6-14.8) Platelet Count 205 K/UL (150-450) Mean Platelet Volume 7.5 FL (6.5-10.1) Neutrophils (%) (Auto) % (45.0-75.0) Lymphocytes (%) (Auto) % (20.0-45.0) Monocytes (%) (Auto) % (1.0-10.0) Eosinophils (%) (Auto) % (0.0-3.0) Basophils (%) (Auto) % (0.0-2.0) Differential Total Cells Counted 100 Neutrophils % (Manual) 94 % (45-75) H Lymphocytes % (Manual) 5 % (20-45) L Monocytes % (Manual) 1 % (1-10) Eosinophils % (Manual) 0 % (0-3) Basophils % (Manual) 0 % (0-2) Band Neutrophils 0 % (0-8) Platelet Estimate Adequate Platelet Morphology Normal Red Blood Cell Morphology Normal Sodium Level 137 mEQ/L (135-145) Potassium Level 4.6 mEQ/L (3.4-4.9) Chloride Level 99 mEQ/L (98-107) Carbon Dioxide Level 25 mEQ/L (20-30) Anion Gap 13 (5-15) Blood Urea Nitrogen 23 mg/dL (7-23) Creatinine 1.1 mg/dL (0.7-1.2) Estimat Glomerular Filtration Rate > 60 mL/min (>60) Glucose Level 180 mg/dL (74-106) H Calcium Level 9.4 mg/dL (8.6-10.2) Total Bilirubin 0.3 mg/dL (0.0-1.2) Aspartate Amino Transf (AST/SGOT) 23 U/L (5-40) Alanine Aminotransferase (ALT/SGPT) 50 U/L (3-41) H Alkaline Phosphatase 100 U/L (40-129) Total Protein 6.1 g/dL (6.6-8.7) L Albumin 4.2 g/dL (3.5-5.2) Globulin 1.9 g/dL Albumin/Globulin Ratio 2.2 (1.0-2.7) Thyroid Stimulating Hormone (TSH) 0.739 uIU/mL (0.300-4.500) General: well developed, no acute distress, other - obese, tender arms legs Head: normocophalic, atraumatic EENT: benign Neurologic Exam Mental Status: awake, alert, oriented x4, normal cognition, good mathematical skills, normal recent memory, normal remote memory, preserved visuospatial function Speech: normal speech, no dysarthia Language: normal language, no aphasia Cranial Nerve II: fundus normal, visual keller, no papilledema Cranial Nerves III, IV, : PERRLA, EOMI, pupils Cranial Nerve V: normal facial sensations, temporales function normal, masseters function normal, pterygoids function normal Cranial Nerve VII: other - face droop Cranial Nerve VIII: normal hearing, no nystagmus Cranial Nerve IX: normal palate elevation, gag response Cranial Nerve X: no voice hoarseness Cranial Nerve XI: SCM symmetric, trapezii function normal Cranial Nerve XII: tongue midline, no tongue atrophy/fasciculations Motor System: normal muscle tone, no involuntary movement, no muscle wasting, other - 4/5 L leg Coordination: normal finger to nose bilaterally Deep Tendon Reflexes: 1+ ankle (L), 1+ ankle (R), 1+ bicep (L), 1+ bicep (R), 1 + brachioradialis (L), 1+ brachioradialis (R), 1+ knee (L), 1+ knee (R), 1+ tricep (L), 1+ tricep (R) Reflexes: extensor plantar (L), extensor plantar (R) Impression/Recommendations Problems: (1) Multiple sclerosis, relapsing-remitting (2) Hypertension (3) Opiate dependence (4) Intractable pain Status: stable, progressing, tolerating diet Recommendations # [id number] solumedrol 1000mg x 3 doses cont supportive care MARKOS CROOKS Nov 23, 2016 14:23
[2016-11-23] MEDS: Dyna-Hex 2% Top Sol 8oz TOPIC SCH (20:35)
[2016-11-23] MEDS: methylPREDNISolone Sod Succ 1,000 MG in NS 275 ML IVPB SCH (21:47)
[2016-11-24] VITALS (7 sets, daily range): BP systolic 149–187; BP diastolic 94–177
[2016-11-24] MEDS: DiphenhydrAMINE 50mg/ml Inj IVP PRN ×4 (00:09→21:57)
[2016-11-24] MEDS: HYDROmorphone 1mg/ml Carpuject IVP PRN ×3 (04:03→18:22)
[2016-11-24] MEDS: LORazepam Inj 2mg/ml 1ml IV PRN ×2 (05:10→21:04)
[2016-11-24 07:21] LABS: MEAN CORPUSCULAR HEMOGLOBIN 32.8 PG (27.0-31.0); MEAN CORPUSCULAR HGB CONC 34.1 G/DL (32.0-36.0); MEAN CORPUSCULAR VOLUME 96 FL (80-99); PLATELET COUNT 195 K/UL (150-450); RED CELL DISTRIBUTION WIDTH 12.3 % (11.6-14.8); WHITE BLOOD COUNT 17.2 K/UL (4.8-10.8)
[2016-11-24 07:42] LABS: ANION GAP 11 (5-15); CALCIUM 9.5 mg/dL (8.6-10.2); CARBON DIOXIDE 25 mEQ/L (20-30); CHLORIDE 96 mEQ/L (98-107); CREATININE 1.2 mg/dL (0.7-1.2); GLOMERULAR FILTRATION RATE > 60 mL/min (>60); HEMOLYSIS 3; POTASSIUM 4.4 mEQ/L (3.4-4.9); SODIUM 132 mEQ/L (135-145)
--- NOTE | 2016-11-24 07:47 | General Progress Note ---
Assessment/Plan Problem List: (1) Neck pain ICD Codes: M54.2 - Cervicalgia SNOMED: 42244545 (2) Hypertension ICD Codes: I10 - Essential (primary) hypertension SNOMED: 97371872 (3) Back sprain ICD Codes: S23.9XXA - Sprain of unspecified parts of thorax, initial encounter SNOMED: 416448098 (4) Opiate dependence ICD Codes: F11.20 - Opioid dependence, uncomplicated SNOMED: 81013349 (5) Pain ICD Codes: R52 - Pain, unspecified SNOMED: 71331993 (6) Diabetes ICD Codes: E11.9 - Diabetes SNOMED: 66503644 (7) Multiple sclerosis, secondary progressive ICD Codes: G35 - Multiple sclerosis, secondary progressive SNOMED: 131068002 (8) Intractable pain ICD Codes: R52 - Pain, unspecified SNOMED: 93009625 Status: stable, progressing, tolerating diet Assessment/Plan ot pt diet pain control cbc bmp am Subjective Constitutional: Reports: weakness Allergies: Coded Allergies: KETOROLAC (Verified Allergy, Severe, Anaphylaxis, 06/19/15) All Systems: reviewed and negative except above Subjective c/o sl lbp Objective Last 24 Hour Vital Signs Date Time Temp Pulse Resp B/P Pulse Ox O2 Delivery O2 Flow Rate FiO2 11/24/16 06:49 98.0 11/24/16 04:33 98.0 11/24/16 04:00 97.3 83 18 155/94 96 Room Air 11/24/16 01:25 149/104 11/24/16 00:04 166/119 11/24/16 00:00 97.3 79 18 166/119 96 Room Air 11/23/16 21:30 85 167/108 11/23/16 20:30 172/117 11/23/16 20:00 97.7 94 20 172/117 95 Room Air 11/23/16 18:57 156/113 11/23/16 16:20 98.0 81 20 177/121 95 Room Air 11/23/16 15:35 180/109 11/23/16 12:00 97.6 78 19 180/109 98 Room Air 11/23/16 08:25 90 177/115 11/23/16 08:23 177/115 11/23/16 08:21 98.4 90 20 177/115 94 Room Air Intake and Output 11/23/16 11/24/16 19:00 07:00 Intake Total 1320 ml 635 ml Output Total 300 ml Balance 1320 ml 335 ml Intake Oral 1320 ml 360 ml IV Total 275 ml Output Urine Total 300 ml # Voids 5 2 Laboratory Tests 11/23/16 10:35: White Blood Count 13.4#H, Red Blood Count 4.89, Hemoglobin 15.8, Hematocrit 47.0 , Mean Corpuscular Volume 96, Mean Corpuscular Hemoglobin 32.2H, Mean Corpuscular Hemoglobin Concent 33.5, Red Cell Distribution Width 12.4, Platelet Count 205, Mean Platelet Volume 7.5, Neutrophils (%) (Auto) , Lymphocytes (%) ( Auto) , Monocytes (%) (Auto) , Eosinophils (%) (Auto) , Basophils (%) (Auto) , Differential Total Cells Counted 100, Neutrophils % (Manual) 94H, Lymphocytes % (Manual) 5L, Monocytes % (Manual) 1, Eosinophils % (Manual) 0, Basophils % ( Manual) 0, Band Neutrophils 0, Platelet Estimate Adequate, Platelet Morphology Normal, Red Blood Cell Morphology Normal, Sodium Level 137, Potassium Level 4.6 , Chloride Level 99, Carbon Dioxide Level 25, Anion Gap 13, Blood Urea Nitrogen 23, Creatinine 1.1, Estimat Glomerular Filtration Rate > 60, Glucose Level 180H , Calcium Level 9.4, Total Bilirubin 0.3, Aspartate Amino Transf (AST/SGOT) 23, Alanine Aminotransferase (ALT/SGPT) 50H, Alkaline Phosphatase 100, Total Protein 6.1L, Albumin 4.2, Globulin 1.9, Albumin/Globulin Ratio 2.2, Thyroid Stimulating Hormone (TSH) 0.739 11/24/16 06:05: White Blood Count 17.2H, Red Blood Count 4.50L, Hemoglobin 14.8, Hematocrit 43.3 , Mean Corpuscular Volume 96, Mean Corpuscular Hemoglobin 32.8H, Mean Corpuscular Hemoglobin Concent 34.1, Red Cell Distribution Width 12.3, Platelet Count 195, Mean Platelet Volume 9.0, Neutrophils (%) (Auto) , Lymphocytes (%) ( Auto) , Monocytes (%) (Auto) , Eosinophils (%) (Auto) , Basophils (%) (Auto) , Neutrophils % (Manual) [Pending], Lymphocytes % (Manual) [Pending], Platelet Estimate [Pending], Platelet Morphology [Pending], Sodium Level 132L, Potassium Level 4.4, Chloride Level 96L, Carbon Dioxide Level 25, Anion Gap 11, Blood Urea Nitrogen 26H, Creatinine 1.2, Estimat Glomerular Filtration Rate > 60, Glucose Level 230H, Calcium Level 9.5 Height (Feet): 6 Height (Inches): 0.00 Weight (Pounds): 220 General Appearance: alert EENT: normal ENT inspection Neck: non-tender, normal alignment, supple Cardiovascular: normal peripheral pulses, normal rate, regular rhythm Respiratory/Chest: chest wall non-tender, lungs clear, normal breath sounds Abdomen: normal bowel sounds, non tender, soft Extremities: normal inspection Edema: no edema noted Arm (L), no edema noted Arm (R), no edema noted Leg (L), no edema noted Leg (R), no edema noted Pedal (L), no edema noted Pedal (R), no edema noted Generalized Neurologic: responsive, motor weakness Skin: normal pigmentation, warm/dry BARBARA RAGLAND Nov 24, 2016 07:47
[2016-11-24 08:00] LABS: BAND NEUTROPHILS % (MANUAL) 0 % (0-8); BASOPHILS % (MANUAL) 0 % (0-2); EOSINOPHILS % (MANUAL) 0 % (0-3); LYMPHOCYTES % (MANUAL) 7 % (20-45); NEUTROPHILS % (MANUAL) 91 % (45-75); PLATELET ESTIMATE ADEQUATE; PLATELET MORPHOLOGY NORMAL; TOTAL CELLS COUNTED 100
[2016-11-24] MEDS: Miralax 17gm pkt ORAL SCH (08:13)
[2016-11-24] MEDS: cloNIDine 0.2mg Tab ORAL SCH ×2 (08:14→21:05)
[2016-11-24] MEDS: Heparin 5000 units/ml inj SUBQ SCH ×2 (08:15→21:07)
--- NOTE | 2016-11-24 08:54 | Pulmonology Progress Note ---
Assessment/Plan Assessment/Plan ASSESSMENT s/p fall MS recent onset of gout HTN urgency CAD neuropathic pain cervical DDD cervical spondylosis lumbar DDD lumbar spondylosis narcotic dependence PLAN OF CARE MS floor steroids IV as per neuro leukocytosis likely reactive 2 to steroids steroid dose adjustment as per neuro neuro follows pain management pain specialist follows BP management with BB and Clonidine ( dose increased) , Hydralazine prn PT/OT fall precautions DVT prophylaxis bowel regimen case discussed and evaluated by supervising physician Subjective Allergies: Coded Allergies: KETOROLAC (Verified Allergy, Severe, Anaphylaxis, 06/19/15) Subjective still with Leukocytosis , afebrile denies chest pain, SOB, new onset of weakness BP still not well controlled Objective Last 24 Hour Vital Signs Date Time Temp Pulse Resp B/P Pulse Ox O2 Delivery O2 Flow Rate FiO2 11/24/16 08:14 163/117 11/24/16 08:14 90 163/117 11/24/16 07:52 98.0 90 18 163/117 96 Room Air 11/24/16 06:49 98.0 11/24/16 04:33 98.0 11/24/16 04:00 97.3 83 18 155/94 96 Room Air 11/24/16 01:25 149/104 11/24/16 00:04 166/119 11/24/16 00:00 97.3 79 18 166/119 96 Room Air 11/23/16 21:30 85 167/108 11/23/16 20:30 172/117 11/23/16 20:00 97.7 94 20 172/117 95 Room Air 11/23/16 18:57 156/113 11/23/16 16:20 98.0 81 20 177/121 95 Room Air 11/23/16 15:35 180/109 11/23/16 12:00 97.6 78 19 180/109 98 Room Air Intake and Output 11/23/16 11/24/16 19:00 07:00 Intake Total 1320 ml 635 ml Output Total 300 ml Balance 1320 ml 335 ml Intake Oral 1320 ml 360 ml IV Total 275 ml Output Urine Total 300 ml # Voids 5 2 Objective General Appearance: WD/WN, no acute distress, other - A/A/O x3 AA male HEENT: normocephalic, atraumatic, anicteric Respiratory/Chest: lungs clear Cardiovascular: normal peripheral pulses, normal rate, no JVD Abdomen: normal bowel sounds, soft, non tender, non distended Extremities: no edema, pedal pulses normal Neurologic/Psychiatric: abnormal gait - wuth cane, alert, oriented x 3, responsive Musculoskeletal: normal muscle bulk Microbiology Date/Time Source Procedure Growth Status 11/22/16 12:30 Nasal Nares MRSA Culture - Final NO METHICILLIN RESISTANT STAPH AUREUS... Complete Laboratory Tests 11/23/16 10:35: White Blood Count 13.4#H, Red Blood Count 4.89, Hemoglobin 15.8, Hematocrit 47.0 , Mean Corpuscular Volume 96, Mean Corpuscular Hemoglobin 32.2H, Mean Corpuscular Hemoglobin Concent 33.5, Red Cell Distribution Width 12.4, Platelet Count 205, Mean Platelet Volume 7.5, Neutrophils (%) (Auto) , Lymphocytes (%) ( Auto) , Monocytes (%) (Auto) , Eosinophils (%) (Auto) , Basophils (%) (Auto) , Differential Total Cells Counted 100, Neutrophils % (Manual) 94H, Lymphocytes % (Manual) 5L, Monocytes % (Manual) 1, Eosinophils % (Manual) 0, Basophils % ( Manual) 0, Band Neutrophils 0, Platelet Estimate Adequate, Platelet Morphology Normal, Red Blood Cell Morphology Normal, Sodium Level 137, Potassium Level 4.6 , Chloride Level 99, Carbon Dioxide Level 25, Anion Gap 13, Blood Urea Nitrogen 23, Creatinine 1.1, Estimat Glomerular Filtration Rate > 60, Glucose Level 180H , Calcium Level 9.4, Total Bilirubin 0.3, Aspartate Amino Transf (AST/SGOT) 23, Alanine Aminotransferase (ALT/SGPT) 50H, Alkaline Phosphatase 100, Total Protein 6.1L, Albumin 4.2, Globulin 1.9, Albumin/Globulin Ratio 2.2, Thyroid Stimulating Hormone (TSH) 0.739 11/24/16 06:05: White Blood Count 17.2H, Red Blood Count 4.50L, Hemoglobin 14.8, Hematocrit 43.3 , Mean Corpuscular Volume 96, Mean Corpuscular Hemoglobin 32.8H, Mean Corpuscular Hemoglobin Concent 34.1, Red Cell Distribution Width 12.3, Platelet Count 195, Mean Platelet Volume 9.0, Neutrophils (%) (Auto) , Lymphocytes (%) ( Auto) , Monocytes (%) (Auto) , Eosinophils (%) (Auto) , Basophils (%) (Auto) , Differential Total Cells Counted 100, Neutrophils % (Manual) 91H, Lymphocytes % (Manual) 7L, Monocytes % (Manual) 2, Eosinophils % (Manual) 0, Basophils % ( Manual) 0, Band Neutrophils 0, Platelet Estimate Adequate, Platelet Morphology Normal, Red Blood Cell Morphology Normal, Sodium Level 132L, Potassium Level 4.4 , Chloride Level 96L, Carbon Dioxide Level 25, Anion Gap 11, Blood Urea Nitrogen 26H, Creatinine 1.2, Estimat Glomerular Filtration Rate > 60, Glucose Level 230H, Calcium Level 9.5 Current Medications Medications (Trade) Dose Ordered Sig/Jessica Route PRN Reason Start Time Stop Time Status Last Admin Dose Admin Acetaminophen (Tylenol) 650 mg Q4H PRN ORAL fever 11/22/16 14:45 12/22/16 14:44 Al Hydroxide/Mg Hydroxide (Mylanta II) 30 ml Q6H PRN ORAL dyspepsia 11/22/16 14:45 12/22/16 14:44 Atenolol (Tenormin) 50 mg DAILY ORAL 11/22/16 18:00 12/22/16 17:59 11/24/16 08:14 Chlorhexidine Gluconate (Jaqueline-Hex 2%) 1 applic QHS TOPIC 11/22/16 21:00 12/22/16 20:59 Clonidine HCl (Catapres) 0.1 mg Q6H PRN ORAL SBP>160mmHg 11/23/16 13:45 12/23/16 13:44 11/24/16 00:04 Clonidine HCl (Catapres) 0.2 mg EVERY 12 HOURS ORAL 11/24/16 09:00 12/24/16 08:59 11/24/16 08:14 Dextrose (Dextrose 50%) STAT PRN IV Hypoglycemia 11/22/16 14:45 12/22/16 14:44 Diphenhydramine HCl (Benadryl) 25 mg Q6H PRN IVP Itching 11/22/16 23:15 12/22/16 23:14 11/24/16 06:19 Diphenhydramine HCl 25 mg 25 mg Q6H PRN IM Itching 11/22/16 17:15 12/22/16 17:14 11/23/16 09:31 Duloxetine HCl (Cymbalta) 40 mg DAILY ORAL 11/23/16 09:00 12/23/16 08:59 11/24/16 08:14 Gabapentin (Neurontin) 300 mg THREE TIMES A DAY ORAL 11/22/16 18:00 12/22/16 17:59 11/24/16 08:14 Heparin Sodium (Porcine) (Heparin 5000 units/ml) 5,000 units EVERY 12 HOURS SUBQ 11/22/16 21:00 12/22/16 20:59 11/24/16 08:15 Hydrochlorothiazide (Hydrodiuril) 50 mg DAILY ORAL 11/23/16 09:00 12/23/16 08:59 11/24/16 08:14 Hydromorphone HCl (Dilaudid) 1 mg Q2H PRN IM breakthrough pain 11/22/16 14:45 11/29/16 14:44 11/22/16 18:05 Hydromorphone HCl (Dilaudid) 1 mg Q2H PRN IVP BREAKTHROUGH PAIN 11/22/16 14:30 11/29/16 14:29 11/24/16 04:03 Hydromorphone HCl (Dilaudid) 2 mg Q4H PRN IM severe pain 11/22/16 14:45 11/29/16 14:44 11/23/16 09:31 Hydromorphone HCl (Dilaudid) 2 mg Q4H PRN IVP Severe Pain (Pain Scale 7-10) 11/22/16 14:30 11/29/16 14:29 11/24/16 06:19 Lorazepam (Ativan 2mg/ml 1ml) 0.5 mg Q4H PRN IV For Anxiety 11/22/16 14:45 11/29/16 14:44 11/24/16 05:10 Methylprednisolone Sodium Succinate/ Sodium Chloride (SOLU-Medrol/ Sodium Chloride) 275 ml @ 275 mls/hr QHS IVPB 11/22/16 21:00 11/24/16 21:59 11/23/16 21:47 Ondansetron HCl (Zofran) 4 mg Q6H PRN IVP Nausea & Vomiting 11/22/16 14:45 12/22/16 14:44 Polyethylene Glycol (Miralax) 17 gm DAILY ORAL 11/23/16 09:00 12/23/16 08:59 11/24/16 08:13 Polyethylene Glycol (Miralax) 17 gm HSPRN PRN ORAL Constipation 11/22/16 14:45 12/22/16 14:44 Zolpidem Tartrate (Ambien) 5 mg HSPRN PRN ORAL Insomnia 11/22/16 14:45 12/22/16 14:44 11/23/16 01:35 Guilherme ([facility])Reena NP Nov 24, 2016 08:54
--- NOTE | 2016-11-24 09:46 | General Progress Note ---
Assessment/Plan Assessment/Plan (1) Multiple Sclerosis (2) Neuropathic pain (3) Cervical DDD (4) Cervical spondylosis (5) Lumbar DDD (6) Lumbar spondylosis (7) Narcotic Dependency Patient will be continued on the Dilaudid Pt was d/w Dr. Scott and he concurred. Subjective Date patient seen: Nov 24, 2016 Time patient seen: 07:00 - am Allergies: Coded Allergies: KETOROLAC (Verified Allergy, Severe, Anaphylaxis, 06/19/15) Subjective Constitutional: Reports: weakness, Denies: chills, diaphoresis, fever, malaise , no symptoms, other HEENT: Denies: blurred vision, double vision, ear discharge, ear pain, eye pain , mouth pain, mouth swelling, no symptoms, nose congestion, nose pain, other, tearing, throat pain, throat swelling Cardiovascular: Denies: chest pain, edema, irregular heart rate, lightheadedness, no symptoms, other, palpitations, syncope Respiratory: Denies: SOB at rest, SOB with excertion, cough, no symptoms, orthopnea, other, shortness of breath, sputum, stridor, wheezing Gastrointestinal/Abdominal: Denies: abdomen distended, abdominal pain, black stools, blood in stool, constipated, diarrhea, difficulty swallowing, nausea, no symptoms, other, poor appetite, poor fluid intake, rectal bleeding, tarry stools, vomiting Genitourinary: Denies: burning, discharge, flank pain, frequency, hematuria, incontinence, no symptoms, other, pain, urgency Neurologic/Psychiatric: Reports: weakness, Denies: anxiety, depressed, emotional problems, headache, no symptoms, numbness, other, paresthesia, pre- existing deficit, seizure, tingling, tremors Endocrine: Denies: excessive sweating, flushing, increased hunger, increased thirst, increased urine, intolerance to cold, intolerance to heat, no symptoms, other, unexplained weight gain, unexplained weight loss Hematologic/Lymphatic: Denies: anemia, easy bleeding, easy bruising, no symptoms, other Subjective The patient continues to c/o severe pain which has been tolerated on the Dilaudid. He says the pain is a 8/10 reduced to a 5/10 on the medication. Objective Last 24 Hour Vital Signs Date Time Temp Pulse Resp B/P Pulse Ox O2 Delivery O2 Flow Rate FiO2 11/24/16 08:14 163/117 11/24/16 08:14 90 163/117 11/24/16 07:52 98.0 90 18 163/117 96 Room Air 11/24/16 06:49 98.0 11/24/16 04:33 98.0 11/24/16 04:00 97.3 83 18 155/94 96 Room Air 11/24/16 01:25 149/104 11/24/16 00:04 166/119 11/24/16 00:00 97.3 79 18 166/119 96 Room Air 11/23/16 21:30 85 167/108 11/23/16 20:30 172/117 11/23/16 20:00 97.7 94 20 172/117 95 Room Air 11/23/16 18:57 156/113 11/23/16 16:20 98.0 81 20 177/121 95 Room Air 11/23/16 15:35 180/109 11/23/16 12:00 97.6 78 19 180/109 98 Room Air Intake and Output 11/23/16 11/24/16 19:00 07:00 Intake Total 1320 ml 635 ml Output Total 300 ml Balance 1320 ml 335 ml Intake Oral 1320 ml 360 ml IV Total 275 ml Output Urine Total 300 ml # Voids 5 2 Laboratory Tests 11/23/16 10:35: White Blood Count 13.4#H, Red Blood Count 4.89, Hemoglobin 15.8, Hematocrit 47.0 , Mean Corpuscular Volume 96, Mean Corpuscular Hemoglobin 32.2H, Mean Corpuscular Hemoglobin Concent 33.5, Red Cell Distribution Width 12.4, Platelet Count 205, Mean Platelet Volume 7.5, Neutrophils (%) (Auto) , Lymphocytes (%) ( Auto) , Monocytes (%) (Auto) , Eosinophils (%) (Auto) , Basophils (%) (Auto) , Differential Total Cells Counted 100, Neutrophils % (Manual) 94H, Lymphocytes % (Manual) 5L, Monocytes % (Manual) 1, Eosinophils % (Manual) 0, Basophils % ( Manual) 0, Band Neutrophils 0, Platelet Estimate Adequate, Platelet Morphology Normal, Red Blood Cell Morphology Normal, Sodium Level 137, Potassium Level 4.6 , Chloride Level 99, Carbon Dioxide Level 25, Anion Gap 13, Blood Urea Nitrogen 23, Creatinine 1.1, Estimat Glomerular Filtration Rate > 60, Glucose Level 180H , Calcium Level 9.4, Total Bilirubin 0.3, Aspartate Amino Transf (AST/SGOT) 23, Alanine Aminotransferase (ALT/SGPT) 50H, Alkaline Phosphatase 100, Total Protein 6.1L, Albumin 4.2, Globulin 1.9, Albumin/Globulin Ratio 2.2, Thyroid Stimulating Hormone (TSH) 0.739 11/24/16 06:05: White Blood Count 17.2H, Red Blood Count 4.50L, Hemoglobin 14.8, Hematocrit 43.3 , Mean Corpuscular Volume 96, Mean Corpuscular Hemoglobin 32.8H, Mean Corpuscular Hemoglobin Concent 34.1, Red Cell Distribution Width 12.3, Platelet Count 195, Mean Platelet Volume 9.0, Neutrophils (%) (Auto) , Lymphocytes (%) ( Auto) , Monocytes (%) (Auto) , Eosinophils (%) (Auto) , Basophils (%) (Auto) , Differential Total Cells Counted 100, Neutrophils % (Manual) 91H, Lymphocytes % (Manual) 7L, Monocytes % (Manual) 2, Eosinophils % (Manual) 0, Basophils % ( Manual) 0, Band Neutrophils 0, Platelet Estimate Adequate, Platelet Morphology Normal, Red Blood Cell Morphology Normal, Sodium Level 132L, Potassium Level 4.4 , Chloride Level 96L, Carbon Dioxide Level 25, Anion Gap 11, Blood Urea Nitrogen 26H, Creatinine 1.2, Estimat Glomerular Filtration Rate > 60, Glucose Level 230H, Calcium Level 9.5 Height (Feet): 6 Height (Inches): 0.00 Weight (Pounds): 220 Objective General Appearance: no apparent distress, alert EENT: PERRL/EOMI, normal ENT inspection Neck: non-tender, normal alignment Cardiovascular: normal peripheral pulses, normal rate, regular rhythm Respiratory/Chest: lungs clear, normal breath sounds Abdomen: non tender, soft Extremities: non-tender Edema: no edema noted Arm (L), no edema noted Arm (R), no edema noted Leg (L), no edema noted Leg (R), no edema noted Pedal (L), no edema noted Pedal (R), no edema noted Generalized Neurologic: alert, oriented x 3 Skin: warm/dry MAYCOL WILEY N. P.Angela Nov 24, 2016 09:46
[2016-11-24] MEDS: DiphenhydrAMINE 50mg/ml Inj IM PRN (11:22)
--- NOTE | 2016-11-24 12:15 | Infectious Diseases Prog Note ---
Assessment/Plan Problems: (1) Leukocytosis Assessment & Plan: suspect due to steroids, will monitor CBC, recommend to taper steroids (2) Multiple sclerosis Assessment & Plan: with flare on pulse dose of steroids, as per neurology (3) Degenerative disc disease, cervical Assessment & Plan: continue pain management as per pain team (4) Exacerbation of chronic back pain Assessment & Plan: due to MS flare, continue pain management (5) Relapsing progressive multiple sclerosis Assessment & Plan: on pulse dose of steroids as per neurology Subjective Allergies: Coded Allergies: KETOROLAC (Verified Allergy, Severe, Anaphylaxis, 06/19/15) Objective Vital Signs Last 24 Hour Vital Signs Date Time Temp Pulse Resp B/P Pulse Ox O2 Delivery O2 Flow Rate FiO2 11/24/16 11:59 97.3 18 159/114 96 Room Air 11/24/16 08:14 163/117 11/24/16 08:14 90 163/117 11/24/16 07:52 98.0 90 18 163/117 96 Room Air 11/24/16 06:49 98.0 11/24/16 04:33 98.0 11/24/16 04:00 97.3 83 18 155/94 96 Room Air 11/24/16 01:25 149/104 11/24/16 00:04 166/119 11/24/16 00:00 97.3 79 18 166/119 96 Room Air 11/23/16 21:30 85 167/108 11/23/16 20:30 172/117 11/23/16 20:00 97.7 94 20 172/117 95 Room Air 11/23/16 18:57 156/113 11/23/16 16:20 98.0 81 20 177/121 95 Room Air 11/23/16 15:35 180/109 Height (Feet): 6 Height (Inches): 0.00 Weight (Pounds): 220 Microbiology Date/Time Source Procedure Growth Status 11/22/16 12:30 Nasal Nares MRSA Culture - Final NO METHICILLIN RESISTANT STAPH AUREUS... Complete 11/22/16 12:30 Rectum VRE Culture - Final NO VANCOMYCIN RESISTANT ENTEROCOCCUS ... Complete Laboratory Tests Test 11/24/16 06:05 White Blood Count 17.2 K/UL (4.8-10.8) H Red Blood Count 4.50 M/UL (4.70-6.10) L Hemoglobin 14.8 G/DL (14.2-18.0) Hematocrit 43.3 % (42.0-52.0) Mean Corpuscular Volume 96 FL (80-99) Mean Corpuscular Hemoglobin 32.8 PG (27.0-31.0) H Mean Corpuscular Hemoglobin Concent 34.1 G/DL (32.0-36.0) Red Cell Distribution Width 12.3 % (11.6-14.8) Platelet Count 195 K/UL (150-450) Mean Platelet Volume 9.0 FL (6.5-10.1) Neutrophils (%) (Auto) % (45.0-75.0) Lymphocytes (%) (Auto) % (20.0-45.0) Monocytes (%) (Auto) % (1.0-10.0) Eosinophils (%) (Auto) % (0.0-3.0) Basophils (%) (Auto) % (0.0-2.0) Differential Total Cells Counted 100 Neutrophils % (Manual) 91 % (45-75) H Lymphocytes % (Manual) 7 % (20-45) L Monocytes % (Manual) 2 % (1-10) Eosinophils % (Manual) 0 % (0-3) Basophils % (Manual) 0 % (0-2) Band Neutrophils 0 % (0-8) Platelet Estimate Adequate Platelet Morphology Normal Red Blood Cell Morphology Normal Sodium Level 132 mEQ/L (135-145) L Potassium Level 4.4 mEQ/L (3.4-4.9) Chloride Level 96 mEQ/L (98-107) L Carbon Dioxide Level 25 mEQ/L (20-30) Anion Gap 11 (5-15) Blood Urea Nitrogen 26 mg/dL (7-23) H Creatinine 1.2 mg/dL (0.7-1.2) Estimat Glomerular Filtration Rate > 60 mL/min (>60) Glucose Level 230 mg/dL (74-106) H Calcium Level 9.5 mg/dL (8.6-10.2) Current Medications Medications (Trade) Dose Ordered Sig/Jessica Route PRN Reason Start Time Stop Time Status Last Admin Dose Admin Acetaminophen (Tylenol) 650 mg Q4H PRN ORAL fever 11/22/16 14:45 12/22/16 14:44 Al Hydroxide/Mg Hydroxide (Mylanta II) 30 ml Q6H PRN ORAL dyspepsia 11/22/16 14:45 12/22/16 14:44 Atenolol (Tenormin) 50 mg DAILY ORAL 11/22/16 18:00 12/22/16 17:59 11/24/16 08:14 Chlorhexidine Gluconate (Jaqueline-Hex 2%) 1 applic QHS TOPIC 11/22/16 21:00 12/22/16 20:59 Clonidine HCl (Catapres) 0.2 mg EVERY 12 HOURS ORAL 11/24/16 09:00 12/24/16 08:59 11/24/16 08:14 Dextrose (Dextrose 50%) STAT PRN IV Hypoglycemia 11/22/16 14:45 12/22/16 14:44 Diphenhydramine HCl (Benadryl) 25 mg Q6H PRN IVP Itching 11/22/16 23:15 12/22/16 23:14 11/24/16 06:19 Diphenhydramine HCl 25 mg 25 mg Q6H PRN IM Itching 11/22/16 17:15 12/22/16 17:14 11/24/16 11:22 Duloxetine HCl (Cymbalta) 40 mg DAILY ORAL 11/23/16 09:00 12/23/16 08:59 11/24/16 08:14 Gabapentin (Neurontin) 300 mg THREE TIMES A DAY ORAL 11/22/16 18:00 12/22/16 17:59 11/24/16 08:14 Heparin Sodium (Porcine) (Heparin 5000 units/ml) 5,000 units EVERY 12 HOURS SUBQ 11/22/16 21:00 12/22/16 20:59 11/24/16 08:15 Hydralazine HCl (Apresoline) 25 mg Q6H PRN ORAL sbp above 160 11/24/16 09:00 12/24/16 08:59 Hydrochlorothiazide (Hydrodiuril) 50 mg DAILY ORAL 11/23/16 09:00 12/23/16 08:59 11/24/16 08:14 Hydromorphone HCl (Dilaudid) 1 mg Q2H PRN IM breakthrough pain 11/22/16 14:45 11/29/16 14:44 11/22/16 18:05 Hydromorphone HCl (Dilaudid) 1 mg Q2H PRN IVP BREAKTHROUGH PAIN 11/22/16 14:30 11/29/16 14:29 11/24/16 04:03 Hydromorphone HCl (Dilaudid) 2 mg Q4H PRN IM severe pain 11/22/16 14:45 11/29/16 14:44 11/23/16 09:31 Hydromorphone HCl (Dilaudid) 2 mg Q4H PRN IVP Severe Pain (Pain Scale 7-10) 11/22/16 14:30 11/29/16 14:29 11/24/16 10:19 Lorazepam (Ativan 2mg/ml 1ml) 0.5 mg Q4H PRN IV For Anxiety 11/22/16 14:45 11/29/16 14:44 11/24/16 05:10 Methylprednisolone Sodium Succinate/ Sodium Chloride (SOLU-Medrol/ Sodium Chloride) 275 ml @ 275 mls/hr QHS IVPB 11/22/16 21:00 11/24/16 21:59 11/23/16 21:47 Ondansetron HCl (Zofran) 4 mg Q6H PRN IVP Nausea & Vomiting 11/22/16 14:45 12/22/16 14:44 Polyethylene Glycol (Miralax) 17 gm DAILY ORAL 11/23/16 09:00 12/23/16 08:59 11/24/16 08:13 Polyethylene Glycol (Miralax) 17 gm HSPRN PRN ORAL Constipation 11/22/16 14:45 12/22/16 14:44 Zolpidem Tartrate (Ambien) 5 mg HSPRN PRN ORAL Insomnia 11/22/16 14:45 12/22/16 14:44 11/23/16 01:35 Aditi Bustamante M.D. Nov 24, 2016 12:15
[2016-11-24] MEDS: HydrALAZINE 25mg tab ORAL PRN (16:31)
--- NOTE | 2016-11-24 16:47 | Consultation ---
DATE OF CONSULTATION: INFECTIOUS DISEASE CONSULTATION REQUESTING PHYSICIAN: Dennis Hoffman D.O. REASON FOR CONSULTATION: Leukocytosis. Recommendation for antibiotics treatment. History Of Present Illness: The patient is a 51-year-old male with history of multiple sclerosis with recent exacerbation, who presented to [facility] with left leg weakness due to worsening multiple sclerosis. The patient also had a new onset of gout. He developed pain with weakness in the left lower extremity. The patient received pain medication with no significant improvement. So, he was admitted to the hospital to be evaluated by a neurologist. The patient was seen and evaluated by Dr. Scott and he was started on pulse dose of steroid, which improved his pain and weakness to a degree. The patient developed leukocytosis and his WBC went up to 17,000. So, I was consulted by the primary provider for antibiotics treatment to rule out possible infection. The patient denied any fever or chills. No cough or shortness of breath. No nausea or vomiting. No diarrhea. REVIEW OF SYSTEMS: A 12-point system review was all negative apart from the one I mentioned above in my History and Physical. PAST MEDICAL HISTORY: Significant for coronary artery disease, hypertension, multiple sclerosis, CVA, headache, dizziness, and weakness. PAST SURGICAL HISTORY: Negative. FAMILY HISTORY: Negative for recurrent infection or immunocompromised condition. SOCIAL HISTORY: He lives at home with his family. Denied using any drugs, tobacco, or alcohol. ALLERGIES: He is allergic to ketorolac. MEDICATIONS: The patient was started on methylprednisolone 1 g IV once daily since 11/22/2016. For the rest of his medications, please refer to MAR. LABORATORY DATA: Labs showed white count of 17.2, hemoglobin of 14.8, and platelet count of 195,000. BUN of 26 and creatinine of 1.2. Urinalysis negative for infection. Microbiology, VRE and MRSA screen are both negative. PHYSICAL EXAMINATION: VITAL SIGNS: Temperature 97.3 degrees, pulse 90, respirations 18, blood pressure 159/114, and pulse oximetry 96% on room air. GENERAL: He is a middle-aged male, up in bed, awake, alert, with leg weakness, not in acute distress. HEENT: Head is normocephalic and atraumatic. Pupils are reactive to light. Moist oral mucosa. No exudate. NECK: Supple. No lymphadenopathy. CARDIOVASCULAR: Regular rate and rhythm. No murmur. LUNGS: Clear bilaterally. Diminished breathing sounds at the bases. ABDOMEN: Soft, nontender, and nondistended. Positive bowel sounds. No hepatosplenomegaly. EXTREMITIES: No edema or cyanosis. ASSESSMENT AND RECOMMENDATIONS: 1. Leukocytosis, suspect due to steroids. The patient on high pulse dose. Recommend to taper steroid. Monitor WBC. I expect his white count to drop once he is off steroids starting tomorrow. No need for antibiotics at this point since he does not have any sign of infection. 2. Multiple sclerosis with acute flare on pulse dose of steroids as per Neurology. 3. Degenerative disk disease of the cervical spine. Continue pain management as needed as per pain team. 4. Exacerbation of chronic back pain due to multiple sclerosis flare. Continue pain management. 5. Relapsing progressing multiple sclerosis on pulse dose of steroid as per Neurology. Recommend to taper steroid. Aditi Bustamante M.D. DR: KARRI JOB#: [id number] CC: PIERCE
[2016-11-24] MEDS ORDERED: HydrALAZINE 25mg tab ORAL STA (19:37)
[2016-11-24] MEDS: Dyna-Hex 2% Top Sol 8oz TOPIC SCH (20:53)
[2016-11-24] MEDS: methylPREDNISolone Sod Succ 1,000 MG in NS 275 ML IVPB SCH (21:05)
[2016-11-24] MEDS: Zolpidem 5mg tab ORAL PRN (21:57)
[2016-11-25] VITALS (10 sets, daily range): BP systolic 158–214; BP diastolic 98–134
[2016-11-25] MEDS: HydrALAZINE 25mg tab ORAL PRN ×2 (01:51→11:35)
[2016-11-25] MEDS: LORazepam Inj 2mg/ml 1ml IV PRN ×2 (02:48→09:45)
[2016-11-25] MEDS: HYDROmorphone 1mg/ml Carpuject IVP PRN ×3 (05:58→16:53)
[2016-11-25 07:20] LABS: MEAN CORPUSCULAR HEMOGLOBIN 33.2 PG (27.0-31.0); MEAN CORPUSCULAR HGB CONC 34.3 G/DL (32.0-36.0); MEAN CORPUSCULAR VOLUME 97 FL (80-99); MEAN PLATELET VOLUME 7.6 FL (6.5-10.1); PLATELET COUNT 173 K/UL (150-450); RED BLOOD COUNT 4.46 M/UL (4.70-6.10); RED CELL DISTRIBUTION WIDTH 12.8 % (11.6-14.8); WHITE BLOOD COUNT 15.9 K/UL (4.8-10.8)
[2016-11-25] MEDS: DiphenhydrAMINE 50mg/ml Inj IVP PRN ×2 (08:06→16:52)
[2016-11-25] MEDS: cloNIDine 0.2mg Tab ORAL SCH ×2 (08:07→21:36)
[2016-11-25] MEDS: Miralax 17gm pkt ORAL SCH (08:07)
[2016-11-25] MEDS: Heparin 5000 units/ml inj SUBQ SCH ×2 (08:10→21:37)
[2016-11-25 08:12] LABS: ANION GAP 13 (5-15); CALCIUM 9.5 mg/dL (8.6-10.2); CARBON DIOXIDE 27 mEQ/L (20-30); CHLORIDE 98 mEQ/L (98-107); CREATININE 1.3 mg/dL (0.7-1.2); GLOMERULAR FILTRATION RATE > 60 mL/min (>60); HEMOLYSIS 11; POTASSIUM 4.2 mEQ/L (3.4-4.9); SODIUM 138 mEQ/L (135-145)
--- NOTE | 2016-11-25 08:33 | General Progress Note ---
Assessment/Plan Assessment/Plan (1) Multiple Sclerosis (2) Neuropathic pain (3) Cervical DDD (4) Cervical spondylosis (5) Lumbar DDD (6) Lumbar spondylosis (7) Narcotic Dependency Patient will be continued on the Dilaudid Pt was d/w Dr. Scott and he concurred. Subjective Date patient seen: Nov 25, 2016 Time patient seen: 07:00 - am Allergies: Coded Allergies: KETOROLAC (Verified Allergy, Severe, Anaphylaxis, 06/19/15) Subjective Constitutional: Reports: weakness, Denies: chills, diaphoresis, fever, malaise , no symptoms, other HEENT: Denies: blurred vision, double vision, ear discharge, ear pain, eye pain , mouth pain, mouth swelling, no symptoms, nose congestion, nose pain, other, tearing, throat pain, throat swelling Cardiovascular: Denies: chest pain, edema, irregular heart rate, lightheadedness, no symptoms, other, palpitations, syncope Respiratory: Denies: SOB at rest, SOB with excertion, cough, no symptoms, orthopnea, other, shortness of breath, sputum, stridor, wheezing Gastrointestinal/Abdominal: Denies: abdomen distended, abdominal pain, black stools, blood in stool, constipated, diarrhea, difficulty swallowing, nausea, no symptoms, other, poor appetite, poor fluid intake, rectal bleeding, tarry stools, vomiting Genitourinary: Denies: burning, discharge, flank pain, frequency, hematuria, incontinence, no symptoms, other, pain, urgency Neurologic/Psychiatric: Reports: weakness, Denies: anxiety, depressed, emotional problems, headache, no symptoms, numbness, other, paresthesia, pre- existing deficit, seizure, tingling, tremors Endocrine: Denies: excessive sweating, flushing, increased hunger, increased thirst, increased urine, intolerance to cold, intolerance to heat, no symptoms, other, unexplained weight gain, unexplained weight loss Hematologic/Lymphatic: Denies: anemia, easy bleeding, easy bruising, no symptoms, other Subjective Pt is in bed no signs of pain or distress. Pain has been reduced on the Dilaudid having requested 4 2m and 3 1mg in the last 24hrs. Objective Last 24 Hour Vital Signs Date Time Temp Pulse Resp B/P Pulse Ox O2 Delivery O2 Flow Rate FiO2 11/25/16 08:08 88 178/125 11/25/16 08:07 178/125 11/25/16 08:00 97.0 88 19 178/125 95 Room Air 11/25/16 06:48 85 165/105 11/25/16 06:28 96.6 11/25/16 04:00 96.6 73 20 193/122 Room Air 11/25/16 02:52 158/98 11/25/16 02:22 97.7 11/25/16 01:51 175/112 11/25/16 00:00 97.7 71 20 182/123 Room Air 11/24/16 21:34 97.7 11/24/16 21:05 181/117 11/24/16 20:00 97.7 80 20 181/117 94 Room Air 11/24/16 19:55 162/105 11/24/16 16:31 162/105 11/24/16 15:54 98.5 18 187/117 96 Room Air 11/24/16 11:59 97.3 18 159/114 96 Room Air Intake and Output 11/24/16 11/25/16 19:00 07:00 Intake Total 720 ml Balance 720 ml Intake Oral 720 ml # Voids 5 3 # Bowel Movements 1 Laboratory Tests 11/25/16 06:05: White Blood Count 15.9H, Red Blood Count 4.46L, Hemoglobin 14.8, Hematocrit 43.2 , Mean Corpuscular Volume 97, Mean Corpuscular Hemoglobin 33.2H, Mean Corpuscular Hemoglobin Concent 34.3, Red Cell Distribution Width 12.8, Platelet Count 173, Mean Platelet Volume 7.6, Neutrophils (%) (Auto) , Lymphocytes (%) ( Auto) , Monocytes (%) (Auto) , Eosinophils (%) (Auto) , Basophils (%) (Auto) , Neutrophils % (Manual) [Pending], Lymphocytes % (Manual) [Pending], Platelet Estimate [Pending], Platelet Morphology [Pending], Sodium Level 138, Potassium Level 4.2, Chloride Level 98, Carbon Dioxide Level 27, Anion Gap 13, Blood Urea Nitrogen 29H, Creatinine 1.3H, Estimat Glomerular Filtration Rate > 60, Glucose Level 268H, Calcium Level 9.5 Height (Feet): 6 Height (Inches): 0.00 Weight (Pounds): 220 Objective General Appearance: no apparent distress, alert EENT: PERRL/EOMI, normal ENT inspection Neck: non-tender, normal alignment Cardiovascular: normal peripheral pulses, normal rate, regular rhythm Respiratory/Chest: lungs clear, normal breath sounds Abdomen: non tender, soft Extremities: non-tender Edema: no edema noted Arm (L), no edema noted Arm (R), no edema noted Leg (L), no edema noted Leg (R), no edema noted Pedal (L), no edema noted Pedal (R), no edema noted Generalized Neurologic: alert, oriented x 3 Skin: warm/dry MAYCOL WILEY Nov 25, 2016 08:33
[2016-11-25 09:02] LABS: BAND NEUTROPHILS % (MANUAL) 0 % (0-8); BASOPHILS % (MANUAL) 0 % (0-2); EOSINOPHILS % (MANUAL) 0 % (0-3); LYMPHOCYTES % (MANUAL) 7 % (20-45); NEUTROPHILS % (MANUAL) 91 % (45-75); PLATELET ESTIMATE ADEQUATE; PLATELET MORPHOLOGY NORMAL; TOTAL CELLS COUNTED 100
--- NOTE | 2016-11-25 11:39 | Neurology Progress Note ---
Interim History Interim History ROS Limited/Unobtainable: No Complaints: l leg weakness, aches pain diffuse Events: less pain, now on dilaudid q 2hr Objective Physical Exam Last Vital Signs Date Time Temp Pulse Resp B/P Pulse Ox O2 Delivery O2 Flow Rate FiO2 11/25/16 08:36 96.6 11/25/16 08:08 88 178/125 11/25/16 08:00 19 95 Room Air Laboratory Tests Test 11/25/16 06:05 White Blood Count 15.9 K/UL (4.8-10.8) H Red Blood Count 4.46 M/UL (4.70-6.10) L Hemoglobin 14.8 G/DL (14.2-18.0) Hematocrit 43.2 % (42.0-52.0) Mean Corpuscular Volume 97 FL (80-99) Mean Corpuscular Hemoglobin 33.2 PG (27.0-31.0) H Mean Corpuscular Hemoglobin Concent 34.3 G/DL (32.0-36.0) Red Cell Distribution Width 12.8 % (11.6-14.8) Platelet Count 173 K/UL (150-450) Mean Platelet Volume 7.6 FL (6.5-10.1) Neutrophils (%) (Auto) % (45.0-75.0) Lymphocytes (%) (Auto) % (20.0-45.0) Monocytes (%) (Auto) % (1.0-10.0) Eosinophils (%) (Auto) % (0.0-3.0) Basophils (%) (Auto) % (0.0-2.0) Differential Total Cells Counted 100 Neutrophils % (Manual) 91 % (45-75) H Lymphocytes % (Manual) 7 % (20-45) L Monocytes % (Manual) 2 % (1-10) Eosinophils % (Manual) 0 % (0-3) Basophils % (Manual) 0 % (0-2) Band Neutrophils 0 % (0-8) Platelet Estimate Adequate Platelet Morphology Normal Red Blood Cell Morphology Normal Sodium Level 138 mEQ/L (135-145) Potassium Level 4.2 mEQ/L (3.4-4.9) Chloride Level 98 mEQ/L (98-107) Carbon Dioxide Level 27 mEQ/L (20-30) Anion Gap 13 (5-15) Blood Urea Nitrogen 29 mg/dL (7-23) H Creatinine 1.3 mg/dL (0.7-1.2) H Estimat Glomerular Filtration Rate > 60 mL/min (>60) Glucose Level 268 mg/dL (74-106) H Calcium Level 9.5 mg/dL (8.6-10.2) General: well developed, no acute distress, other - obese, tender arms legs Head: normocophalic, atraumatic EENT: benign Neurologic Exam Mental Status: awake, alert, oriented x4, normal cognition, good mathematical skills, normal recent memory, normal remote memory, preserved visuospatial function, other - drowsy Speech: normal speech, no dysarthia Language: normal language, no aphasia Cranial Nerve II: fundus normal, visual keller, no papilledema Cranial Nerves III, IV, : PERRLA, EOMI, pupils Cranial Nerve V: normal facial sensations, temporales function normal, masseters function normal, pterygoids function normal Cranial Nerve VII: other - face droop Cranial Nerve VIII: normal hearing, no nystagmus Cranial Nerve IX: normal palate elevation, gag response Cranial Nerve X: no voice hoarseness Cranial Nerve XI: SCM symmetric, trapezii function normal Cranial Nerve XII: tongue midline, no tongue atrophy/fasciculations Motor System: normal muscle tone, no involuntary movement, no muscle wasting, other - 4/5 L leg Coordination: normal finger to nose bilaterally Deep Tendon Reflexes: 1+ ankle (R), 1+ bicep (L), 1+ bicep (R), 1+ brachioradialis (L), 1+ brachioradialis (R), 1+ knee (R), 1+ tricep (L), 1+ tricep (R), 2+ ankle (L), 2+ knee (L) Reflexes: extensor plantar (L), mute plantar (R) Stance: normal Gait: other - limping Impression/Recommendations Problems: (1) Multiple sclerosis, relapsing-remitting (2) Hypertension (3) Opiate dependence (4) Intractable pain Status: stable, progressing, tolerating diet Recommendations # [id number] solumedrol 1000mg x 3 doses today completed, start tapering prednisone 40mg over x 5 days. cont supportive care pt/ot avoid overdosing opiates, MARKOS CROOKS Nov 25, 2016 11:39
--- NOTE | 2016-11-25 13:29 | General Progress Note ---
Assessment/Plan Problem List: (1) Neck pain ICD Codes: M54.2 - Cervicalgia SNOMED: 07210206 (2) Hypertension ICD Codes: I10 - Essential (primary) hypertension SNOMED: 42332267 (3) Back sprain ICD Codes: S23.9XXA - Sprain of unspecified parts of thorax, initial encounter SNOMED: 199345354 (4) Opiate dependence ICD Codes: F11.20 - Opioid dependence, uncomplicated SNOMED: 33294613 (5) Pain ICD Codes: R52 - Pain, unspecified SNOMED: 70807264 (6) Diabetes ICD Codes: E11.9 - Diabetes SNOMED: 16965445 (7) Multiple sclerosis, secondary progressive ICD Codes: G35 - Multiple sclerosis, secondary progressive SNOMED: 599778917 (8) Intractable pain ICD Codes: R52 - Pain, unspecified SNOMED: 04216933 Status: stable, progressing, tolerating diet Assessment/Plan ot pt diet pain control dc w hh Subjective Constitutional: Reports: weakness Allergies: Coded Allergies: KETOROLAC (Verified Allergy, Severe, Anaphylaxis, 06/19/15) All Systems: reviewed and negative except above Subjective c/o sl lbp Objective Last 24 Hour Vital Signs Date Time Temp Pulse Resp B/P Pulse Ox O2 Delivery O2 Flow Rate FiO2 11/25/16 12:00 97.7 72 18 166/124 97 Room Air 11/25/16 11:35 166/124 11/25/16 11:24 96.6 11/25/16 08:36 96.6 11/25/16 08:08 88 178/125 11/25/16 08:07 178/125 11/25/16 08:00 97.0 88 19 178/125 95 Room Air 11/25/16 06:48 85 165/105 11/25/16 04:00 96.6 73 20 193/122 Room Air 11/25/16 02:52 158/98 11/25/16 01:51 175/112 11/25/16 00:00 97.7 71 20 182/123 Room Air 11/24/16 21:34 97.7 11/24/16 21:05 181/117 11/24/16 20:00 97.7 80 20 181/117 94 Room Air 11/24/16 19:55 162/105 11/24/16 16:31 162/105 11/24/16 15:54 98.5 18 187/117 96 Room Air Intake and Output 11/24/16 11/25/16 19:00 07:00 Intake Total 720 ml Balance 720 ml Intake Oral 720 ml # Voids 5 3 # Bowel Movements 1 Laboratory Tests 11/25/16 06:05: White Blood Count 15.9H, Red Blood Count 4.46L, Hemoglobin 14.8, Hematocrit 43.2 , Mean Corpuscular Volume 97, Mean Corpuscular Hemoglobin 33.2H, Mean Corpuscular Hemoglobin Concent 34.3, Red Cell Distribution Width 12.8, Platelet Count 173, Mean Platelet Volume 7.6, Neutrophils (%) (Auto) , Lymphocytes (%) ( Auto) , Monocytes (%) (Auto) , Eosinophils (%) (Auto) , Basophils (%) (Auto) , Differential Total Cells Counted 100, Neutrophils % (Manual) 91H, Lymphocytes % (Manual) 7L, Monocytes % (Manual) 2, Eosinophils % (Manual) 0, Basophils % ( Manual) 0, Band Neutrophils 0, Platelet Estimate Adequate, Platelet Morphology Normal, Red Blood Cell Morphology Normal, Sodium Level 138, Potassium Level 4.2 , Chloride Level 98, Carbon Dioxide Level 27, Anion Gap 13, Blood Urea Nitrogen 29H, Creatinine 1.3H, Estimat Glomerular Filtration Rate > 60, Glucose Level 268H, Calcium Level 9.5 Height (Feet): 6 Height (Inches): 0.00 Weight (Pounds): 220 General Appearance: alert EENT: normal ENT inspection Neck: normal alignment Cardiovascular: normal peripheral pulses, normal rate, regular rhythm Respiratory/Chest: chest wall non-tender, lungs clear, normal breath sounds Abdomen: normal bowel sounds, non tender, soft Extremities: normal inspection Edema: no edema noted Arm (L), no edema noted Arm (R), no edema noted Leg (L), no edema noted Leg (R), no edema noted Pedal (L), no edema noted Pedal (R), no edema noted Generalized Neurologic: responsive, motor weakness Skin: normal pigmentation, warm/dry BARBARA RAGLAND Nov 25, 2016 13:29
--- NOTE | 2016-11-25 14:41 | Infectious Diseases Prog Note ---
Assessment/Plan Problems: (1) Leukocytosis Assessment & Plan: suspect due to steroids, now improving, continue to monitor CBC, taper steroids (2) Multiple sclerosis Assessment & Plan: with flare , S/P pulse dose of steroids, now on oral , neurology is following (3) Degenerative disc disease, cervical Assessment & Plan: continue pain management as per pain team (4) Exacerbation of chronic back pain Assessment & Plan: due to MS flare, continue pain management (5) Relapsing progressive multiple sclerosis Assessment & Plan: on steroids as per neurology Subjective Constitutional: Reports: no symptoms HEENT: Reports: no symptoms Respiratory: Reports: no symptoms Breasts: Reports: no symptoms Cardiovascular: Reports: no symptoms Gastrointestinal/Abdominal: Reports: no symptoms Genitourinary: Reports: no symptoms Neurologic: Reports: numbness, weakness Psychiatric: Reports: no symptoms Skin: Reports: no symptoms Endocrine: Reports: no symptoms Hematologic: Reports: no symptoms Musculoskeletal: Reports: pain Allergies: Coded Allergies: KETOROLAC (Verified Allergy, Severe, Anaphylaxis, 06/19/15) Objective Vital Signs Last 24 Hour Vital Signs Date Time Temp Pulse Resp B/P Pulse Ox O2 Delivery O2 Flow Rate FiO2 11/25/16 12:00 97.7 72 18 166/124 97 Room Air 11/25/16 11:35 166/124 11/25/16 11:24 96.6 11/25/16 08:36 96.6 11/25/16 08:08 88 178/125 11/25/16 08:07 178/125 11/25/16 08:00 97.0 88 19 178/125 95 Room Air 11/25/16 06:48 85 165/105 11/25/16 04:00 96.6 73 20 193/122 Room Air 11/25/16 02:52 158/98 11/25/16 01:51 175/112 11/25/16 00:00 97.7 71 20 182/123 Room Air 11/24/16 21:34 97.7 11/24/16 21:05 181/117 11/24/16 20:00 97.7 80 20 181/117 94 Room Air 11/24/16 19:55 162/105 11/24/16 16:31 162/105 11/24/16 15:54 98.5 18 187/117 96 Room Air Height (Feet): 6 Height (Inches): 0.00 Weight (Pounds): 220 General Appearance: WD/WN, no acute distress HEENT: normocephalic, atraumatic, anicteric, mucous membranes moist Respiratory/Chest: chest wall non-tender, lungs clear, normal breath sounds, no respiratory distress, no accessory muscle use Cardiovascular: normal peripheral pulses, normal rate, regular rhythm, no gallop/murmur, no JVD Abdomen: normal bowel sounds, soft, non tender, no organomegaly, non distended , no mass Extremities: no cyanosis, no clubbing Skin: no rash, no lesions Lymphatic: no neck adenopathy, no groin adenopathy Laboratory Tests Test 11/25/16 06:05 White Blood Count 15.9 K/UL (4.8-10.8) H Red Blood Count 4.46 M/UL (4.70-6.10) L Hemoglobin 14.8 G/DL (14.2-18.0) Hematocrit 43.2 % (42.0-52.0) Mean Corpuscular Volume 97 FL (80-99) Mean Corpuscular Hemoglobin 33.2 PG (27.0-31.0) H Mean Corpuscular Hemoglobin Concent 34.3 G/DL (32.0-36.0) Red Cell Distribution Width 12.8 % (11.6-14.8) Platelet Count 173 K/UL (150-450) Mean Platelet Volume 7.6 FL (6.5-10.1) Neutrophils (%) (Auto) % (45.0-75.0) Lymphocytes (%) (Auto) % (20.0-45.0) Monocytes (%) (Auto) % (1.0-10.0) Eosinophils (%) (Auto) % (0.0-3.0) Basophils (%) (Auto) % (0.0-2.0) Differential Total Cells Counted 100 Neutrophils % (Manual) 91 % (45-75) H Lymphocytes % (Manual) 7 % (20-45) L Monocytes % (Manual) 2 % (1-10) Eosinophils % (Manual) 0 % (0-3) Basophils % (Manual) 0 % (0-2) Band Neutrophils 0 % (0-8) Platelet Estimate Adequate Platelet Morphology Normal Red Blood Cell Morphology Normal Sodium Level 138 mEQ/L (135-145) Potassium Level 4.2 mEQ/L (3.4-4.9) Chloride Level 98 mEQ/L (98-107) Carbon Dioxide Level 27 mEQ/L (20-30) Anion Gap 13 (5-15) Blood Urea Nitrogen 29 mg/dL (7-23) H Creatinine 1.3 mg/dL (0.7-1.2) H Estimat Glomerular Filtration Rate > 60 mL/min (>60) Glucose Level 268 mg/dL (74-106) H Calcium Level 9.5 mg/dL (8.6-10.2) Current Medications Medications (Trade) Dose Ordered Sig/Jessica Route PRN Reason Start Time Stop Time Status Last Admin Dose Admin Acetaminophen (Tylenol) 650 mg Q4H PRN ORAL fever 11/22/16 14:45 12/22/16 14:44 Al Hydroxide/Mg Hydroxide (Mylanta II) 30 ml Q6H PRN ORAL dyspepsia 11/22/16 14:45 12/22/16 14:44 Atenolol (Tenormin) 50 mg DAILY ORAL 11/22/16 18:00 12/22/16 17:59 11/25/16 08:08 Chlorhexidine Gluconate (Jaqueline-Hex 2%) 1 applic QHS TOPIC 11/22/16 21:00 12/22/16 20:59 Clonidine HCl (Catapres) 0.2 mg EVERY 12 HOURS ORAL 11/24/16 09:00 12/24/16 08:59 11/25/16 08:07 Dextrose (Dextrose 50%) STAT PRN IV Hypoglycemia 11/22/16 14:45 12/22/16 14:44 Diphenhydramine HCl (Benadryl) 25 mg Q6H PRN IM Itching 11/22/16 17:15 12/22/16 17:14 11/24/16 11:22 Diphenhydramine HCl (Benadryl) 25 mg Q6H PRN IVP Itching 11/22/16 23:15 12/22/16 23:14 11/25/16 08:06 Duloxetine HCl (Cymbalta) 60 mg DAILY ORAL 11/26/16 09:00 12/26/16 08:59 Gabapentin (Neurontin) 400 mg THREE TIMES A DAY ORAL 11/25/16 13:00 12/25/16 12:59 11/25/16 13:54 Heparin Sodium (Porcine) (Heparin 5000 units/ml) 5,000 units EVERY 12 HOURS SUBQ 11/22/16 21:00 12/22/16 20:59 11/25/16 08:10 Hydralazine HCl (Apresoline) 25 mg Q6H PRN ORAL sbp above 160 11/24/16 09:00 12/24/16 08:59 11/25/16 11:35 Hydrochlorothiazide (Hydrodiuril) 50 mg DAILY ORAL 11/23/16 09:00 12/23/16 08:59 11/25/16 08:07 Hydromorphone HCl (Dilaudid) 1 mg Q2H PRN IM breakthrough pain 11/22/16 14:45 11/29/16 14:44 11/22/16 18:05 Hydromorphone HCl (Dilaudid) 1 mg Q2H PRN IVP BREAKTHROUGH PAIN 11/22/16 14:30 11/29/16 14:29 11/25/16 10:54 Hydromorphone HCl (Dilaudid) 2 mg Q4H PRN IM severe pain 11/22/16 14:45 11/29/16 14:44 11/24/16 21:04 Hydromorphone HCl (Dilaudid) 2 mg Q4H PRN IVP Severe Pain (Pain Scale 7-10) 11/22/16 14:30 11/29/16 14:29 11/25/16 13:55 Lorazepam (Ativan 2mg/ml 1ml) 0.5 mg Q4H PRN IV For Anxiety 11/22/16 14:45 11/29/16 14:44 11/25/16 09:45 Ondansetron HCl (Zofran) 4 mg Q6H PRN IVP Nausea & Vomiting 11/22/16 14:45 12/22/16 14:44 Polyethylene Glycol (Miralax) 17 gm DAILY ORAL 11/23/16 09:00 12/23/16 08:59 11/25/16 08:07 Polyethylene Glycol (Miralax) 17 gm HSPRN PRN ORAL Constipation 11/22/16 14:45 12/22/16 14:44 Prednisone (predniSONE) 40 mg ONCE ONCE ORAL 11/26/16 12:30 11/26/16 12:31 Zolpidem Tartrate (Ambien) 5 mg HSPRN PRN ORAL Insomnia 11/22/16 14:45 12/22/16 14:44 11/24/16 21:57 Aditi Bustamante M.D. Nov 25, 2016 14:41
--- NOTE | 2016-11-25 16:55 | Cardiac Electrophysiology PN ---
Subjective Subjective [id number] 1. Accelerated hypertension. Resume clonidine 0.3 mg three times a day, losartan 50 mg twice a day, Norvasc 10 mg and metoprolol 50 mg twice a day. 2. Atypical chest pain. The patient's ejection fraction is 60%. Nuclear stress test on previous admission showed no ischemia. 3. Severe headache likely due to migraine as well as accelerated hypertension. 4. Multiple sclerosis. 5. Opiate dependence. Objective Last 24 Hour Vital Signs Date Time Temp Pulse Resp B/P Pulse Ox O2 Delivery O2 Flow Rate FiO2 11/25/16 16:00 97.7 92 21 192/134 97 Room Air 11/25/16 14:25 97.7 11/25/16 12:00 97.7 72 18 166/124 97 Room Air 11/25/16 11:35 166/124 11/25/16 11:24 96.6 11/25/16 08:08 88 178/125 11/25/16 08:07 178/125 11/25/16 08:00 97.0 88 19 178/125 95 Room Air 11/25/16 06:48 85 165/105 11/25/16 04:00 96.6 73 20 193/122 Room Air 11/25/16 02:52 158/98 11/25/16 01:51 175/112 11/25/16 00:00 97.7 71 20 182/123 Room Air 11/24/16 21:34 97.7 11/24/16 21:05 181/117 11/24/16 20:00 97.7 80 20 181/117 94 Room Air 11/24/16 19:55 162/105 Intake and Output 11/24/16 11/25/16 19:00 07:00 Intake Total 720 ml Balance 720 ml Intake Oral 720 ml # Voids 5 3 # Bowel Movements 1 Laboratory Tests Test 11/25/16 06:05 White Blood Count 15.9 K/UL (4.8-10.8) H Red Blood Count 4.46 M/UL (4.70-6.10) L Hemoglobin 14.8 G/DL (14.2-18.0) Hematocrit 43.2 % (42.0-52.0) Mean Corpuscular Volume 97 FL (80-99) Mean Corpuscular Hemoglobin 33.2 PG (27.0-31.0) H Mean Corpuscular Hemoglobin Concent 34.3 G/DL (32.0-36.0) Red Cell Distribution Width 12.8 % (11.6-14.8) Platelet Count 173 K/UL (150-450) Mean Platelet Volume 7.6 FL (6.5-10.1) Neutrophils (%) (Auto) % (45.0-75.0) Lymphocytes (%) (Auto) % (20.0-45.0) Monocytes (%) (Auto) % (1.0-10.0) Eosinophils (%) (Auto) % (0.0-3.0) Basophils (%) (Auto) % (0.0-2.0) Differential Total Cells Counted 100 Neutrophils % (Manual) 91 % (45-75) H Lymphocytes % (Manual) 7 % (20-45) L Monocytes % (Manual) 2 % (1-10) Eosinophils % (Manual) 0 % (0-3) Basophils % (Manual) 0 % (0-2) Band Neutrophils 0 % (0-8) Platelet Estimate Adequate Platelet Morphology Normal Red Blood Cell Morphology Normal Sodium Level 138 mEQ/L (135-145) Potassium Level 4.2 mEQ/L (3.4-4.9) Chloride Level 98 mEQ/L (98-107) Carbon Dioxide Level 27 mEQ/L (20-30) Anion Gap 13 (5-15) Blood Urea Nitrogen 29 mg/dL (7-23) H Creatinine 1.3 mg/dL (0.7-1.2) H Estimat Glomerular Filtration Rate > 60 mL/min (>60) Glucose Level 268 mg/dL (74-106) H Calcium Level 9.5 mg/dL (8.6-10.2) ELIANA SWANN Nov 25, 2016 16:55
[2016-11-25] MEDS: DiphenhydrAMINE 50mg/ml Inj IM PRN (16:56)
[2016-11-25] MEDS: HydrALAZINE 50mg tab ORAL SCH (17:40)
--- NOTE | 2016-11-25 19:44 | Pulmonology Progress Note ---
Assessment/Plan Problems: (1) Multiple sclerosis (2) Exacerbation of chronic back pain (3) Degenerative disc disease, cervical (4) Hypertension (5) Diabetes Assessment/Plan symptomatic treatment pt/ot dc planning all meds and notes reviewed Subjective ROS Limited/Unobtainable: No Constitutional: Reports: no symptoms HEENT: Repors: no symptoms Respiratory: Reports: no symptoms Allergies: Coded Allergies: KETOROLAC (Verified Allergy, Severe, Anaphylaxis, 06/19/15) Objective Last 24 Hour Vital Signs Date Time Temp Pulse Resp B/P Pulse Ox O2 Delivery O2 Flow Rate FiO2 11/25/16 17:40 192/134 11/25/16 17:23 97.7 11/25/16 16:00 97.7 92 21 192/134 97 Room Air 11/25/16 14:25 97.7 11/25/16 12:00 97.7 72 18 166/124 97 Room Air 11/25/16 11:35 166/124 11/25/16 08:08 88 178/125 11/25/16 08:07 178/125 11/25/16 08:00 97.0 88 19 178/125 95 Room Air 11/25/16 06:48 85 165/105 11/25/16 04:00 96.6 73 20 193/122 Room Air 11/25/16 02:52 158/98 11/25/16 01:51 175/112 11/25/16 00:00 97.7 71 20 182/123 Room Air 11/24/16 21:34 97.7 11/24/16 21:05 181/117 11/24/16 20:00 97.7 80 20 181/117 94 Room Air 11/24/16 19:55 162/105 Intake and Output 11/24/16 11/25/16 19:00 07:00 Intake Total 720 ml Balance 720 ml Intake Oral 720 ml # Voids 5 3 # Bowel Movements 1 General Appearance: WD/WN HEENT: normocephalic, atraumatic Respiratory/Chest: chest wall non-tender, lungs clear Cardiovascular: normal peripheral pulses, normal rate Abdomen: normal bowel sounds, soft, non tender Genitourinary: normal external genitalia Extremities: no cyanosis Laboratory Tests 11/25/16 06:05: White Blood Count 15.9H, Red Blood Count 4.46L, Hemoglobin 14.8, Hematocrit 43.2 , Mean Corpuscular Volume 97, Mean Corpuscular Hemoglobin 33.2H, Mean Corpuscular Hemoglobin Concent 34.3, Red Cell Distribution Width 12.8, Platelet Count 173, Mean Platelet Volume 7.6, Neutrophils (%) (Auto) , Lymphocytes (%) ( Auto) , Monocytes (%) (Auto) , Eosinophils (%) (Auto) , Basophils (%) (Auto) , Differential Total Cells Counted 100, Neutrophils % (Manual) 91H, Lymphocytes % (Manual) 7L, Monocytes % (Manual) 2, Eosinophils % (Manual) 0, Basophils % ( Manual) 0, Band Neutrophils 0, Platelet Estimate Adequate, Platelet Morphology Normal, Red Blood Cell Morphology Normal, Sodium Level 138, Potassium Level 4.2 , Chloride Level 98, Carbon Dioxide Level 27, Anion Gap 13, Blood Urea Nitrogen 29H, Creatinine 1.3H, Estimat Glomerular Filtration Rate > 60, Glucose Level 268H, Calcium Level 9.5 Current Medications Medications (Trade) Dose Ordered Sig/Jessica Route PRN Reason Start Time Stop Time Status Last Admin Dose Admin Acetaminophen (Tylenol) 650 mg Q4H PRN ORAL fever 11/22/16 14:45 12/22/16 14:44 Al Hydroxide/Mg Hydroxide (Mylanta II) 30 ml Q6H PRN ORAL dyspepsia 11/22/16 14:45 12/22/16 14:44 Amlodipine Besylate (Norvasc) 10 mg DAILY ORAL 11/26/16 09:00 12/26/16 08:59 Chlorhexidine Gluconate (Jaqueline-Hex 2%) 1 applic QHS TOPIC 11/22/16 21:00 12/22/16 20:59 Clonidine HCl (Catapres) 0.2 mg EVERY 12 HOURS ORAL 11/24/16 09:00 12/24/16 08:59 11/25/16 08:07 Dextrose (Dextrose 50%) STAT PRN IV Hypoglycemia 11/22/16 14:45 12/22/16 14:44 Diphenhydramine HCl (Benadryl) 25 mg Q6H PRN IM Itching 11/22/16 17:15 12/22/16 17:14 11/25/16 16:56 Diphenhydramine HCl (Benadryl) 25 mg Q6H PRN IVP Itching 11/22/16 23:15 8/20/17 23:14 11/25/16 08:06 Duloxetine HCl (Cymbalta) 60 mg DAILY ORAL 11/26/16 09:00 12/26/16 08:59 Gabapentin (Neurontin) 400 mg THREE TIMES A DAY ORAL 11/25/16 13:00 12/25/16 12:59 11/25/16 16:52 Heparin Sodium (Porcine) (Heparin 5000 units/ml) 5,000 units EVERY 12 HOURS SUBQ 11/22/16 21:00 12/22/16 20:59 11/25/16 08:10 Hydralazine HCl (Apresoline) 25 mg Q6H PRN ORAL sbp above 160 11/24/16 09:00 12/24/16 08:59 11/25/16 11:35 Hydralazine HCl (Apresoline) 50 mg BID ORAL 11/25/16 18:00 12/25/16 17:59 11/25/16 17:40 Hydrochlorothiazide (Hydrodiuril) 50 mg DAILY ORAL 11/23/16 09:00 12/23/16 08:59 11/25/16 08:07 Hydromorphone HCl (Dilaudid) 1 mg Q2H PRN IM breakthrough pain 11/22/16 14:45 11/29/16 14:44 11/22/16 18:05 Hydromorphone HCl (Dilaudid) 1 mg Q2H PRN IVP BREAKTHROUGH PAIN 11/22/16 14:30 11/29/16 14:29 11/25/16 16:53 Hydromorphone HCl (Dilaudid) 2 mg Q4H PRN IM severe pain 11/22/16 14:45 11/29/16 14:44 11/24/16 21:04 Hydromorphone HCl (Dilaudid) 2 mg Q4H PRN IVP Severe Pain (Pain Scale 7-10) 11/22/16 14:30 11/29/16 14:29 11/25/16 13:55 Labetalol HCl (Normodyne) 400 mg Q12HR ORAL 11/25/16 21:00 12/25/16 20:59 Lorazepam (Ativan 2mg/ml 1ml) 0.5 mg Q4H PRN IV For Anxiety 11/22/16 14:45 11/29/16 14:44 11/25/16 09:45 Ondansetron HCl (Zofran) 4 mg Q6H PRN IVP Nausea & Vomiting 11/22/16 14:45 12/22/16 14:44 Polyethylene Glycol (Miralax) 17 gm DAILY ORAL 11/23/16 09:00 12/23/16 08:59 11/25/16 08:07 Polyethylene Glycol (Miralax) 17 gm HSPRN PRN ORAL Constipation 11/22/16 14:45 12/22/16 14:44 Prednisone (predniSONE) 40 mg ONCE ONCE ORAL 11/26/16 12:30 11/26/16 12:31 Zolpidem Tartrate (Ambien) 5 mg HSPRN PRN ORAL Insomnia 11/22/16 14:45 12/22/16 14:44 11/24/16 21:57 JOSHUA HARRIS Nov 25, 2016 19:44
[2016-11-25] MEDS: Dyna-Hex 2% Top Sol 8oz TOPIC SCH (21:00)
[2016-11-25] MEDS: Labetalol 200mg tab ORAL SCH (21:35)
[2016-11-26] VITALS (7 sets, daily range): BP systolic 129–175; BP diastolic 57–103
--- NOTE | 2016-11-26 00:31 | Consultation ---
DATE OF CONSULTATION: 11/25/2016 CARDIOLOGY CONSULTATION CONSULTING PHYSICIAN: Joni Ferguson M.D. REFERRING PHYSICIAN: Dennis Hoffman D.O. REASON FOR CONSULTATION: Accelerated hypertension. HISTORY OF PRESENT ILLNESS: The patient is a 51-year-old gentleman with history of recurrent admissions for accelerated hypertension as well as multiple sclerosis exacerbation. He also has history of coronary artery disease and presents to [facility] for feelings of feeling weak and falling down. The patient did not have near syncope or presyncope. The patient was admitted, however, was noted to have uncontrolled blood pressure. Cardiology consultation was obtained for further evaluation and management. PAST MEDICAL HISTORY: Include: 1. Hypertension. 2. Multiple sclerosis. 3. History of coronary artery disease and chest pain with a nuclear stress test recently that was negative for ischemia. 4. Opiate dependence. 5. Migraine. REVIEW OF SYSTEMS: Review of systems was performed and was negative other than what was mentioned in the history of present illness. PHYSICAL EXAMINATION: VITAL SIGNS: Blood pressure is 192/134, pulse is 82, respirations 18, and temperature 97.7 degrees. HEAD AND NECK: Shows no JVD. LUNGS: Clear. CARDIOVASCULAR: Shows regular S1 and S2 with no gallop or murmur. ABDOMEN: Soft and nontender. EXTREMITIES: No pitting edema. LABORATORY DATA: Labs show white count 15.9, hemoglobin 14.2, hematocrit 42.2, and platelet count 173,000. Sodium 138, potassium 4.2, BUN 29, creatinine 1.3, and glucose 268. INR is 1. Urine toxicology screen is positive for opiates. ASSESSMENT AND PLAN: 1. Accelerated hypertension, . I will change atenolol to labetalol 400 mg b.i.d. If the blood pressure is still high, I will add Norvasc 10 mg to his medical regimen. 2. History of chest pain, ejection fraction is normal. Nuclear stress test recently showed no evidence of ischemia. 3. Multiple sclerosis. 4. Opioid dependence. Thank you very much for allowing me to participate in the care of this patient. Please do not hesitate to contact me for any questions regarding my evaluation. Joni Ferguson M.D. DR: [place] JOB#: [id number] CC:
[2016-11-26] MEDS: DiphenhydrAMINE 50mg/ml Inj IM PRN (02:31)
[2016-11-26] MEDS: Zolpidem 5mg tab ORAL PRN (02:46)
[2016-11-26] MEDS: HYDROmorphone 1mg/ml Carpuject IVP PRN ×3 (04:24→17:18)
[2016-11-26] MEDS: HydrALAZINE 25mg tab ORAL PRN (06:00)
[2016-11-26] MEDS: Labetalol 200mg tab ORAL SCH (08:17)
--- NOTE | 2016-11-26 08:52 | General Progress Note ---
Assessment/Plan Assessment/Plan (1) Multiple Sclerosis (2) Neuropathic pain (3) Cervical DDD (4) Cervical spondylosis (5) Lumbar DDD (6) Lumbar spondylosis (7) Narcotic Dependency Patient will be continued on the Dilaudid Pt was d/w Dr. Scott and he concurred. Subjective Date patient seen: Nov 26, 2016 Time patient seen: 07:00 - am Allergies: Coded Allergies: KETOROLAC (Verified Allergy, Severe, Anaphylaxis, 06/19/15) Subjective Constitutional: Reports: weakness, Denies: chills, diaphoresis, fever, malaise , no symptoms, other HEENT: Denies: blurred vision, double vision, ear discharge, ear pain, eye pain , mouth pain, mouth swelling, no symptoms, nose congestion, nose pain, other, tearing, throat pain, throat swelling Cardiovascular: Denies: chest pain, edema, irregular heart rate, lightheadedness, no symptoms, other, palpitations, syncope Respiratory: Denies: SOB at rest, SOB with excertion, cough, no symptoms, orthopnea, other, shortness of breath, sputum, stridor, wheezing Gastrointestinal/Abdominal: Denies: abdomen distended, abdominal pain, black stools, blood in stool, constipated, diarrhea, difficulty swallowing, nausea, no symptoms, other, poor appetite, poor fluid intake, rectal bleeding, tarry stools, vomiting Genitourinary: Denies: burning, discharge, flank pain, frequency, hematuria, incontinence, no symptoms, other, pain, urgency Neurologic/Psychiatric: Reports: weakness, Denies: anxiety, depressed, emotional problems, headache, no symptoms, numbness, other, paresthesia, pre- existing deficit, seizure, tingling, tremors Endocrine: Denies: excessive sweating, flushing, increased hunger, increased thirst, increased urine, intolerance to cold, intolerance to heat, no symptoms, other, unexplained weight gain, unexplained weight loss Hematologic/Lymphatic: Denies: anemia, easy bleeding, easy bruising, no symptoms, other Subjective He continues to c/o pain which has been worse with activities and tolerated with the medication. Patient has no new complaints. Objective Last 24 Hour Vital Signs Date Time Temp Pulse Resp B/P Pulse Ox O2 Delivery O2 Flow Rate FiO2 11/26/16 08:40 97.0 89 20 153/95 95 Room Air 11/26/16 08:17 70 175/103 11/26/16 08:16 70 175/103 11/26/16 06:44 97.6 11/26/16 06:00 175/103 11/26/16 04:54 97.6 11/26/16 04:00 97.6 70 18 175/103 97 Room Air 11/25/16 23:52 97.6 88 18 165/104 98 Room Air 11/25/16 22:42 97.7 11/25/16 22:09 89 18 166/111 98 Room Air 11/25/16 21:36 192/134 11/25/16 21:35 92 192/134 11/25/16 20:00 97.5 81 18 214/127 98 Room Air 11/25/16 17:40 192/134 11/25/16 16:00 97.7 92 21 192/134 97 Room Air 11/25/16 12:00 97.7 72 18 166/124 97 Room Air 11/25/16 11:35 166/124 Intake and Output 11/25/16 11/26/16 19:00 07:00 Intake Total 360 ml Balance 360 ml Intake Oral 360 ml # Voids 1 3 Height (Feet): 6 Height (Inches): 0.00 Weight (Pounds): 220 Objective General Appearance: no apparent distress, alert EENT: PERRL/EOMI, normal ENT inspection Neck: non-tender, normal alignment Cardiovascular: normal peripheral pulses, normal rate, regular rhythm Respiratory/Chest: lungs clear, normal breath sounds Abdomen: non tender, soft Extremities: non-tender Edema: no edema noted Arm (L), no edema noted Arm (R), no edema noted Leg (L), no edema noted Leg (R), no edema noted Pedal (L), no edema noted Pedal (R), no edema noted Generalized Neurologic: alert, oriented x 3 Skin: warm/dry MAYCOL WILEY PAurora Nov 26, 2016 08:52
[2016-11-26] MEDS ORDERED: DULoxetine 30mg cap ORAL SCH (09:00)
[2016-11-26] MEDS: Miralax 17gm pkt ORAL SCH (09:20)
[2016-11-26] MEDS: LORazepam Inj 2mg/ml 1ml IV PRN (09:21)
[2016-11-26] MEDS: Heparin 5000 units/ml inj SUBQ SCH (09:23)
[2016-11-26] MEDS: cloNIDine 0.2mg Tab ORAL SCH (10:42)
[2016-11-26] MEDS: HydrALAZINE 50mg tab ORAL SCH ×2 (10:46→17:17)
[2016-11-26] MEDS: DiphenhydrAMINE 50mg/ml Inj IVP PRN (11:32)
--- NOTE | 2016-11-26 12:02 | General Progress Note ---
Assessment/Plan Problem List: (1) Neck pain ICD Codes: M54.2 - Cervicalgia SNOMED: 52963342 (2) Hypertension ICD Codes: I10 - Essential (primary) hypertension SNOMED: 89724330 (3) Back sprain ICD Codes: S23.9XXA - Sprain of unspecified parts of thorax, initial encounter SNOMED: 654342395 (4) Opiate dependence ICD Codes: F11.20 - Opioid dependence, uncomplicated SNOMED: 13068142 (5) Pain ICD Codes: R52 - Pain, unspecified SNOMED: 52786760 (6) Diabetes ICD Codes: E11.9 - Diabetes SNOMED: 87858598 (7) Multiple sclerosis, secondary progressive ICD Codes: G35 - Multiple sclerosis, secondary progressive SNOMED: 503256789 (8) Intractable pain ICD Codes: R52 - Pain, unspecified SNOMED: 58132106 Status: stable, progressing, tolerating diet Assessment/Plan ot pt diet pain control cbc bmp am dc w hh if clear by cardio Subjective Constitutional: Reports: weakness Allergies: Coded Allergies: KETOROLAC (Verified Allergy, Severe, Anaphylaxis, 06/19/15) All Systems: reviewed and negative except above Subjective c/o sl lbp Objective Last 24 Hour Vital Signs Date Time Temp Pulse Resp B/P Pulse Ox O2 Delivery O2 Flow Rate FiO2 11/26/16 10:46 152/102 11/26/16 10:42 152/102 11/26/16 08:40 97.0 89 20 153/95 95 Room Air 11/26/16 08:17 70 175/103 11/26/16 08:16 70 175/103 11/26/16 06:44 97.6 11/26/16 06:00 175/103 11/26/16 04:54 97.6 11/26/16 04:00 97.6 70 18 175/103 97 Room Air 11/25/16 23:52 97.6 88 18 165/104 98 Room Air 11/25/16 22:42 97.7 11/25/16 22:09 89 18 166/111 98 Room Air 11/25/16 21:36 192/134 11/25/16 21:35 92 192/134 11/25/16 20:00 97.5 81 18 214/127 98 Room Air 11/25/16 17:40 192/134 11/25/16 16:00 97.7 92 21 192/134 97 Room Air Intake and Output 11/25/16 11/26/16 19:00 07:00 Intake Total 360 ml Balance 360 ml Intake Oral 360 ml # Voids 1 3 Height (Feet): 6 Height (Inches): 0.00 Weight (Pounds): 220 General Appearance: lethargic EENT: normal ENT inspection Neck: normal alignment Cardiovascular: normal peripheral pulses, normal rate, regular rhythm Respiratory/Chest: chest wall non-tender, lungs clear, normal breath sounds Abdomen: normal bowel sounds, non tender, soft Extremities: normal inspection Edema: no edema noted Arm (L), no edema noted Arm (R), no edema noted Leg (L), no edema noted Leg (R), no edema noted Pedal (L), no edema noted Pedal (R), no edema noted Generalized Neurologic: responsive, motor weakness Skin: normal pigmentation, warm/dry BARBARA RAGLAND Nov 26, 2016 12:02
[2016-11-26] MEDS ORDERED: PredniSONE 20mg tab ORAL ONE (12:30)
--- NOTE | 2016-11-26 15:04 | Infectious Diseases Prog Note ---
Assessment/Plan Problems: (1) Leukocytosis Assessment & Plan: suspect due to steroids, now improving, continue to monitor CBC, taper steroids (2) Multiple sclerosis Assessment & Plan: with flare , S/P pulse dose of steroids, now on oral , neurology is following (3) Degenerative disc disease, cervical Assessment & Plan: continue pain management as per pain team (4) Exacerbation of chronic back pain Assessment & Plan: due to MS flare, continue pain management (5) Relapsing progressive multiple sclerosis Assessment & Plan: on steroids as per neurology Subjective Constitutional: Reports: fatigue HEENT: Reports: no symptoms Respiratory: Reports: no symptoms Breasts: Reports: no symptoms Cardiovascular: Reports: no symptoms Gastrointestinal/Abdominal: Reports: no symptoms Genitourinary: Reports: no symptoms Neurologic: Reports: numbness, weakness Psychiatric: Reports: no symptoms Skin: Reports: no symptoms Endocrine: Reports: no symptoms Musculoskeletal: Reports: pain Allergies: Coded Allergies: KETOROLAC (Verified Allergy, Severe, Anaphylaxis, 06/19/15) Objective Vital Signs Last 24 Hour Vital Signs Date Time Temp Pulse Resp B/P Pulse Ox O2 Delivery O2 Flow Rate FiO2 11/26/16 13:37 84 129/57 11/26/16 12:31 97.0 87 20 140/86 96 Room Air 11/26/16 10:46 152/102 11/26/16 10:42 152/102 11/26/16 08:40 97.0 89 20 153/95 95 Room Air 11/26/16 08:17 70 175/103 11/26/16 08:16 70 175/103 11/26/16 06:44 97.6 11/26/16 06:00 175/103 11/26/16 04:54 97.6 11/26/16 04:00 97.6 70 18 175/103 97 Room Air 11/25/16 23:52 97.6 88 18 165/104 98 Room Air 11/25/16 22:42 97.7 11/25/16 22:09 89 18 166/111 98 Room Air 11/25/16 21:36 192/134 11/25/16 21:35 92 192/134 11/25/16 20:00 97.5 81 18 214/127 98 Room Air 11/25/16 17:40 192/134 11/25/16 16:00 97.7 92 21 192/134 97 Room Air Height (Feet): 6 Height (Inches): 0.00 Weight (Pounds): 220 General Appearance: WD/WN, no acute distress HEENT: normocephalic, atraumatic, anicteric, mucous membranes moist Respiratory/Chest: chest wall non-tender, lungs clear, normal breath sounds, no respiratory distress, no accessory muscle use Cardiovascular: normal peripheral pulses, normal rate, regular rhythm, no gallop/murmur, no JVD Abdomen: normal bowel sounds, soft, non tender, no organomegaly, non distended , no mass Extremities: no cyanosis, no clubbing Skin: no rash, no lesions Lymphatic: no neck adenopathy Current Medications Medications (Trade) Dose Ordered Sig/Jessica Route PRN Reason Start Time Stop Time Status Last Admin Dose Admin Acetaminophen (Tylenol) 650 mg Q4H PRN ORAL fever 11/22/16 14:45 12/22/16 14:44 Al Hydroxide/Mg Hydroxide (Mylanta II) 30 ml Q6H PRN ORAL dyspepsia 11/22/16 14:45 12/22/16 14:44 Amlodipine Besylate (Norvasc) 10 mg DAILY ORAL 11/26/16 09:00 12/26/16 08:59 11/26/16 08:16 Chlorhexidine Gluconate (Jaqueline-Hex 2%) 1 applic QHS TOPIC 11/22/16 21:00 12/22/16 20:59 Clonidine HCl (Catapres) 0.2 mg EVERY 12 HOURS ORAL 11/24/16 09:00 12/24/16 08:59 11/26/16 10:42 Dextrose (Dextrose 50%) STAT PRN IV Hypoglycemia 11/22/16 14:45 12/22/16 14:44 Diphenhydramine HCl (Benadryl) 25 mg Q6H PRN IM Itching 11/22/16 17:15 12/22/16 17:14 11/26/16 02:31 Diphenhydramine HCl (Benadryl) 25 mg Q6H PRN IVP Itching 11/22/16 23:15 12/22/16 23:14 11/26/16 11:32 Duloxetine HCl (Cymbalta) 60 mg DAILY ORAL 11/26/16 09:00 12/26/16 08:59 11/26/16 08:16 Gabapentin (Neurontin) 400 mg THREE TIMES A DAY ORAL 11/25/16 13:00 12/25/16 12:59 11/26/16 14:47 Heparin Sodium (Porcine) (Heparin 5000 units/ml) 5,000 units EVERY 12 HOURS SUBQ 11/22/16 21:00 12/22/16 20:59 11/26/16 09:23 Hydralazine HCl (Apresoline) 25 mg Q6H PRN ORAL sbp above 160 11/24/16 09:00 12/24/16 08:59 11/26/16 06:00 Hydralazine HCl (Apresoline) 50 mg BID ORAL 11/25/16 18:00 12/25/16 17:59 11/26/16 10:46 Hydrochlorothiazide (Hydrodiuril) 50 mg DAILY ORAL 11/23/16 09:00 12/23/16 08:59 11/26/16 09:20 Hydromorphone HCl (Dilaudid) 1 mg Q2H PRN IM breakthrough pain 11/22/16 14:45 11/29/16 14:44 11/22/16 18:05 Hydromorphone HCl (Dilaudid) 1 mg Q2H PRN IVP BREAKTHROUGH PAIN 11/22/16 14:30 11/29/16 14:29 11/26/16 08:16 Hydromorphone HCl (Dilaudid) 2 mg Q4H PRN IM severe pain 11/22/16 14:45 11/29/16 14:44 11/25/16 22:05 Hydromorphone HCl (Dilaudid) 2 mg Q4H PRN IVP Severe Pain (Pain Scale 7-10) 11/22/16 14:30 11/29/16 14:29 11/26/16 14:47 Labetalol HCl (Normodyne) 400 mg Q12HR ORAL 11/25/16 21:00 12/25/16 20:59 11/26/16 08:17 Lorazepam (Ativan 2mg/ml 1ml) 0.5 mg Q4H PRN IV For Anxiety 11/22/16 14:45 11/29/16 14:44 11/26/16 09:21 Ondansetron HCl (Zofran) 4 mg Q6H PRN IVP Nausea & Vomiting 11/22/16 14:45 12/22/16 14:44 Polyethylene Glycol (Miralax) 17 gm DAILY ORAL 11/23/16 09:00 12/23/16 08:59 11/26/16 09:20 Polyethylene Glycol (Miralax) 17 gm HSPRN PRN ORAL Constipation 11/22/16 14:45 12/22/16 14:44 Prednisone (predniSONE) 20 mg DAILY ORAL 11/26/16 15:00 12/26/16 14:59 UNV Zolpidem Tartrate (Ambien) 5 mg HSPRN PRN ORAL Insomnia 11/22/16 14:45 12/22/16 14:44 11/26/16 02:46 Aditi Bustamante M.D. Nov 26, 2016 15:04
--- NOTE | 2016-11-26 16:20 | Cardiac Electrophysiology PN ---
Assessment/Plan Assessment/Plan 1. Accelerated hypertension,better on labetalol 400 mg b.i.d. Hydralazine 50 bid and Clonidine 0.2 bid and Norvasc 10 daily 2. History of chest pain, ejection fraction is normal. Nuclear stress test recently showed no evidence of ischemia. 3. Multiple sclerosis. 4. Opioid dependence. DW ROK to DC from cardiac standpoint. Subjective Subjective BP was labile today. No chest pain or SOB. Objective Last 24 Hour Vital Signs Date Time Temp Pulse Resp B/P Pulse Ox O2 Delivery O2 Flow Rate FiO2 11/26/16 16:13 97.5 85 20 149/84 96 Room Air 11/26/16 13:37 84 129/57 11/26/16 12:31 97.0 87 20 140/86 96 Room Air 11/26/16 10:46 152/102 11/26/16 10:42 152/102 11/26/16 08:40 97.0 89 20 153/95 95 Room Air 11/26/16 08:17 70 175/103 11/26/16 08:16 70 175/103 11/26/16 06:44 97.6 11/26/16 06:00 175/103 11/26/16 04:54 97.6 11/26/16 04:00 97.6 70 18 175/103 97 Room Air 11/25/16 23:52 97.6 88 18 165/104 98 Room Air 11/25/16 22:42 97.7 11/25/16 22:09 89 18 166/111 98 Room Air 11/25/16 21:36 192/134 11/25/16 21:35 92 192/134 11/25/16 20:00 97.5 81 18 214/127 98 Room Air 11/25/16 17:40 192/134 Intake and Output 11/25/16 11/26/16 18:59 06:59 Intake Total 360 ml Balance 360 ml Intake Oral 360 ml # Voids 1 3 Objective HEAD AND NECK: Shows no JVD. LUNGS: Clear. CARDIOVASCULAR: Shows regular S1 and S2 with no gallop or murmur. ABDOMEN: Soft and nontender. EXTREMITIES: No pitting edema. ELIANA SWANN Nov 26, 2016 16:20
[2016-11-26] MEDS ORDERED: AMLODIPINE BESY10 MG ORAL (18:36)
[2016-11-26] MEDS ORDERED: CLONIDINE 0.2M0.2 MG GT (18:37)
[2016-11-26] MEDS ORDERED: CLONIDINE HCL0.2 MG PO (18:37)
[2016-11-26] MEDS ORDERED: CYMBALTA20 MG ORAL (18:37)
[2016-11-26] MEDS ORDERED: APRESOLINE50 MG ORAL (18:38)
[2016-11-26] MEDS ORDERED: DILAUDID1 MG/1 ML PO (18:41)
[2016-11-26] MEDS ORDERED: NORMODYNE200 MG ORAL (18:41)
[2016-11-26] MEDS ORDERED: MIRALAX17 G2 ORAL (18:43)
[2016-11-26] MEDS ORDERED: PREDNISONE20 MG ORAL (18:43)
--- NOTE | 2016-11-26 23:32 | Pulmonology Progress Note ---
Assessment/Plan Problems: (1) Multiple sclerosis (2) Exacerbation of chronic back pain (3) Degenerative disc disease, cervical (4) Hypertension (5) Diabetes Assessment/Plan symptomatic treatment pt/ot dc planning all meds and notes reviewed Subjective ROS Limited/Unobtainable: No Allergies: Coded Allergies: KETOROLAC (Verified Allergy, Severe, Anaphylaxis, 06/19/15) Objective Last 24 Hour Vital Signs Date Time Temp Pulse Resp B/P Pulse Ox O2 Delivery O2 Flow Rate FiO2 11/26/16 17:17 149/84 11/26/16 16:13 97.5 85 20 149/84 96 Room Air 11/26/16 13:37 84 129/57 11/26/16 12:31 97.0 87 20 140/86 96 Room Air 11/26/16 10:46 152/102 11/26/16 10:42 152/102 11/26/16 08:40 97.0 89 20 153/95 95 Room Air 11/26/16 08:17 70 175/103 11/26/16 08:16 70 175/103 11/26/16 06:44 97.6 11/26/16 06:00 175/103 11/26/16 04:54 97.6 11/26/16 04:00 97.6 70 18 175/103 97 Room Air 11/25/16 23:52 97.6 88 18 165/104 98 Room Air Intake and Output 11/25/16 11/26/16 19:00 07:00 Intake Total 360 ml Balance 360 ml Intake Oral 360 ml # Voids 1 3 General Appearance: WD/WN HEENT: normocephalic, atraumatic Respiratory/Chest: chest wall non-tender, lungs clear Cardiovascular: normal peripheral pulses, normal rate Abdomen: normal bowel sounds, soft, non tender, no scars Extremities: no cyanosis JOSHUA HARRIS Nov 26, 2016 23:32
[2016-11-27] MEDS ORDERED: PredniSONE 20mg tab ORAL SCH (09:00)
--- NOTE | 2016-11-28 10:31 | Discharge Summary ---
Discharge Summary Hospital Course Date of Admission Nov 22, 2016 at 12:12 Date of Discharge Nov 26, 2016 at 19:35 Admitting Diagnosis interactable back pain HPI Teto Granda is a 51 year old male who was admitted on Nov 22, 2016 at 12:12 for Intractable Back Pain Hospital Course [id number] Discharge Discharge Disposition Patient was discharged to Home (01) Discharge Diagnoses: Alicia Castrejon NP Nov 28, 2016 10:31
--- NOTE | 2016-11-28 23:02 | Discharge Summary 2 SIG ---
DATE OF ADMISSION: 11/22/2016 DATE OF DISCHARGE: 11/26/2016 CONSULTANTS: 1. Dayo Conrad M.D. 2. Joni Ferguson M.D. 3. Aditi Bustamante M.D. 4. Jassi Scott M.D. 5. Fletcher Scott M.D. BRIEF HOSPITAL COURSE: The patient is a 51-year-old male, who lives at home, presented to [facility] due to falls. The patient was walking off a curb, apparently, he felt weak and fell down. He later on developed back pain and neck pain and pain was not relieved and he presented to [facility]. He has a history of multiple sclerosis and has left leg weakness and stated that multiple sclerosis has worsened. He had pain that was constant and worse when he moves about. He took oral Dilaudid and the pain was not relieved. He presented to ED and on evaluation laboratories were unremarkable. He was given IV pain medications. MRI done last month from prior admission showed a suspected tethered cord syndrome given low lying conus medullaris and thickening of filum terminale. Urine drug screen was negative except for opiates. He was admitted to medical floor for evaluation of intractable pain. He underwent pain management consult and was given Dilaudid. Neurologic consult was requested. MRI in 2016 revealed chronic multiple sclerosis lesion and a CAT scan done on 11/2016 revealed a nonspecific white matter hypoattenuation consistent with chronic small vessel disease. An MRI of the thoracic spine showed T10 enhancement consistent with acute demyelination with C-spine showing demyelination at C2, C3, C7 and T1. The patient was offered to be started on Gilenya as a p.o. immunomodulator. He was also given IV Solu-Medrol 150 mg for three days which was eventually tapered to prednisone p.o. He was diagnosed to have relapsing and remitting multiple sclerosis. He underwent physical therapy and occupational therapy. He had leukocytosis suspected to be due to steroids. Blood pressure was elevated and was given labetalol 400 mg b.i.d., hydralazine 50 mg b.i.d., clonidine 0.2 mg b.i.d., and Norvasc 10 mg daily. He was eventually discharged home with home health. Advised to follow up with PCP as an outpatient. DISPOSITION: The patient was discharged home with home health. FINAL DIAGNOSES: 1. Multiple sclerosis relapsing and remitting. 2. Hypertension. 3. Opiate dependence. 4. Intractable pain. 5. Degenerative disk disease cervical area. 6. Hypertension. 7. Diabetes. 8. Leukocytosis due to steroids. 9. Accelerated hypertension. Dennis Hoffman D.O. I have been assigned to dictate discharge summary on this account and I was not involved in the patient's management. Alicia Castrejon N.P. DR: MAGEN JOB#: [id number] CC: PIERCE
== END 2016-11-26 19:35 | disposition home health service (06) | DRG 59 ==
LOC: EMR 09:50 → 4W 12:12 → EDBEDREQ 12:53
DX: G35 Multiple sclerosis (principal); F11.20 Opioid dependence, uncomplicated; I10 Essential (primary) hypertension; G89.4 Chronic pain syndrome; F41.9 Anxiety disorder, unspecified; Z88.8 Allergy status to other drugs, medicaments and biological substances; M51.34 Other intervertebral disc degeneration, thoracic region; M51.36 Other intervertebral disc degeneration, lumbar region; M10.9 Gout, unspecified; I25.10 Atherosclerotic heart disease of native coronary artery without angina pectoris; Z86.73 Personal history of transient ischemic attack (TIA), and cerebral infarction without residual deficits; G62.9 Polyneuropathy, unspecified; M50.30 Other cervical disc degeneration, unspecified cervical region; M47.896 Other spondylosis, lumbar region; I16.0 Hypertensive urgency; S23.3XXA Sprain of ligaments of thoracic spine, initial encounter; W01.0XXA Fall on same level from slipping, tripping and stumbling without subsequent striking against object, initial encounter; Z91.81 History of falling
CPT/HCPCS: 36415; 80048; 80053; 80300; 81003; 84443; 85007; 85025; 87081; 97803

== ENCOUNTER 2016-12-20 19:18 | Emergency (ER) | payer MEDICARE, OTHER ==
[~2016-12-20] VITALS: Ht 182.9 cm; Wt 99.8 kg
[~2016-12-20 19:18] MED LIST changes: +AMLODIPINE BESY10 MG ORAL; +APRESOLINE50 MG ORAL; +CLONIDINE 0.2M0.2 MG GT; +CLONIDINE HCL0.2 MG PO; +DILAUDID1 MG/1 ML PO; +NORMODYNE200 MG ORAL
[2016-12-20] MEDS ORDERED: DiphenhydrAMINE 50mg/ml Inj IM ONE (21:00)
[2016-12-20 22:00] VITALS: BP 130/82
[2016-12-20 22:37] VITALS: BP 184/134
[2016-12-21] MEDS ORDERED: HYDROCHLOROTHIA50 MG ORAL (11:30)
--- NOTE | 2016-12-21 12:35 | Emergency Room Report ---
History of Present Illness General Chief Complaint: Back Pain-No Injury Present Illness HPI The patient is a 51-year-old male with a history of chronic back pain presenting for back pain. He states that he used Dilaudid at home earlier today with no relief. He states pain has worsened recently to increased work of the house. Pain is now a 10 out of 10 dull ache and does not radiate from the mid lower back. Worse with movement. He denies any numbness or tingling. He denies any other symptoms including N, V, F, chills, abd pain, CP, SOB Allergies: Coded Allergies: KETOROLAC (Verified Allergy, Severe, Anaphylaxis, 06/19/15) Patient History Past Medical History: see triage record Pertinent Family History: none Reviewed Nursing Documentation: PMH: Agreed, PSxH: Agreed Nursing Documentation-PMH Hx Cardiac Problems: Yes - CAD Hx Hypertension: Yes Hx Asthma: No Hx COPD: No Hx Diabetes: No Hx Cancer: No Hx Gastrointestinal Problems: Yes Hx Dialysis: No Hx Neurological Problems: Yes - multiple sclerosis Hx Cerebrovascular Accident: Yes - TIA (2013) Hx Transient Ischemic Attacks: No Hx Dementia: No Hx Alzheimer's Disease: No Hx Parkinson's Disease: No Hx Meningitis: No Hx Encephalitis: No Hx Seizures: No Hx Epilepsy: No Hx Multiple Sclerosis: Yes Hx Cerebral Palsy: No Hx Amyotrophic Lat Sclerosis: No Hx Guillian-[place] Syndrome: No Hx Paralysis: No Hx Peripheral Neuropathy: No Hx Spinal Cord Injury: No Hx Head Trauma: No Hx Traumatic Brain Injury: No Hx Memory Loss: No Hx Concentration Difficulty: No Hx Speech Problem: No Hx Tremors: No Hx Vertigo: No Hx Dizziness: No Hx Syncope: Yes Hx Headaches: Yes - SOMETIMES Hx Aphasia: No Hx Dysphasia: No Hx Numbness: Yes - RIGHT HAND Hx Weakness: Yes - ALL OF THE BODY Hx Fatigue: Yes - SLIGHT Hx Neurologic Surgery: No Hx Brain Shunt: No Review of Systems All Other Systems: negative except mentioned in HPI Physical Exam Vital Signs Date Time Temp Pulse Resp B/P Pulse Ox O2 Delivery O2 Flow Rate FiO2 12/20/16 19:58 98.2 85 16 184/134 98 Room Air Sp02 EP Interpretation: reviewed, normal General Appearance: no apparent distress, alert, GCS 15, non-toxic Head: normocephalic, atraumatic Eyes: bilateral eye PERRL, bilateral eye normal inspection ENT: hearing grossly normal, normal pharynx, no angioedema, normal voice Musculoskeletal: tender - diffuse tenderness of lumbar region Neurologic: alert, oriented x3, responsive, sensory intact Psychiatric: judgement/insight normal, memory normal, mood/affect normal, no suicidal/homicidal ideation Skin: normal color, no rash, warm/dry, well hydrated Lymphatic: no adenopathy Medical Decision Making PA Attestation Dr. Blackwell is my supervising physician. Patient management was discussed with my supervising physician Diagnostic Impression: Primary Impression: Chronic pain Qualified Codes: G89.29 - Other chronic pain ER Course The patient is a 51 yo M presenting for back pain Ddx considered include but not limited to lumbar strain, degenerative disease, cauda equina syndrome, chronic pain, narcotic dependency. PE: HTN. NAD Diffuse TTP over lumbar region. No step-offs. SILT. Slow gait. He is given pain medication and HTN has resolved. HE will be DC'ed home and needs to FU with PMD. ER precautions given Last Vital Signs Date Time Temp Pulse Resp B/P Pulse Ox O2 Delivery O2 Flow Rate FiO2 12/20/16 22:37 98.0 16 184/134 98 Room Air 12/20/16 19:58 85 Status: improved Disposition: HOME, SELF-CARE Condition: Improved Referrals: BARBARA RAGLAND (PCP) Patient Instructions: Back Pain, Adult Additional Instructions: I discussed my findings with the patient. All questions and concerns have been answered. Treatment and medication compliance have been addressed. I advised the patient that they need to follow up with PMD in 3-5 days. Return to ED if symptoms worsen, new symptoms arise, or if needed for any reason. Patient verbalized understanding of discharge instructions. ULICES DAI Dec 21, 2016 12:34
== END 2016-12-20 22:20 | disposition home or self-care (01) ==
LOC: EMR 21:22
DX: G89.29 Other chronic pain (principal); M54.9 Dorsalgia, unspecified; I25.10 Atherosclerotic heart disease of native coronary artery without angina pectoris; I10 Essential (primary) hypertension; G35 Multiple sclerosis; Z86.73 Personal history of transient ischemic attack (TIA), and cerebral infarction without residual deficits
CPT/HCPCS: 99282

== ENCOUNTER 2016-12-21 10:33 | Inpatient (IN) | payer MEDICARE, OTHER ==
[~2016-12-21] VITALS: Ht 182.9 cm; Wt 99.8 kg
[2016-12-21 10:50] VITALS: BP 148/106
[2016-12-21] MEDS ORDERED: Aspirin Baby 81mg ORAL ONE ×2 (11:15)
--- NOTE | 2016-12-21 11:17 | Emergency Room Report ---
History of Present Illness General Chief Complaint: Chest Pain Source: Patient Present Illness HPI 51 yo M with pmhx of HTN p/w chest pain for 3 days. Chest pain started occurred gradually this am. Localized to substernal area, no radiation to back or other areas, sharp in nature, gradual in onset, states it is intrmittent and cannot state duration of episode. 2-3 episodes/day. Occurred on exertion and rest. + SOB. Denies palpitations, diaphoresis, n/v. Denies fever, chills, cough, abd pain. Denies trauma. Last stress test was within last year which was negative. Patient has never had a cardiac catheterization. Denies smoking, no family history of cardiac disease at a young age. Allergies: Coded Allergies: KETOROLAC (Verified Allergy, Severe, Anaphylaxis, 06/19/15) Patient History Past Medical History: HTN Past Surgical History: none Pertinent Family History: none Nursing Documentation-PMH Hx Cardiac Problems: Yes - CAD Hx Hypertension: Yes Hx Asthma: No Hx COPD: No Hx Diabetes: No Hx Cancer: No Hx Gastrointestinal Problems: Yes Hx Dialysis: No Hx Neurological Problems: Yes - multiple sclerosis Hx Cerebrovascular Accident: Yes - TIA (2013) Hx Transient Ischemic Attacks: No Hx Dementia: No Hx Alzheimer's Disease: No Hx Parkinson's Disease: No Hx Meningitis: No Hx Encephalitis: No Hx Seizures: No Hx Epilepsy: No Hx Multiple Sclerosis: Yes Hx Cerebral Palsy: No Hx Amyotrophic Lat Sclerosis: No Hx Guillian-[place] Syndrome: No Hx Paralysis: No Hx Peripheral Neuropathy: No Hx Spinal Cord Injury: No Hx Head Trauma: No Hx Traumatic Brain Injury: No Hx Memory Loss: No Hx Concentration Difficulty: No Hx Speech Problem: No Hx Tremors: No Hx Vertigo: No Hx Dizziness: No Hx Syncope: Yes Hx Headaches: Yes - SOMETIMES Hx Aphasia: No Hx Dysphasia: No Hx Numbness: Yes - RIGHT HAND Hx Weakness: Yes - ALL OF THE BODY Hx Fatigue: Yes - SLIGHT Hx Neurologic Surgery: No Hx Brain Shunt: No Review of Systems Respiratory: Reports: shortness of breath Cardiovascular: Reports: chest pain All Other Systems: negative except mentioned in HPI Physical Exam Vital Signs Date Time Temp Pulse Resp B/P Pulse Ox O2 Delivery O2 Flow Rate FiO2 12/21/16 10:38 97.9 75 15 147/81 100 Room Air Sp02 EP Interpretation: reviewed, normal General Appearance: normal inspection, well appearing, no apparent distress, alert, GCS 15, non-toxic Head: normocephalic, atraumatic Eyes: bilateral eye EOMI, bilateral eye PERRL, bilateral eye normal inspection ENT: normal ENT inspection, normal voice, moist mucus membranes Neck: normal inspection, full range of motion, supple, no bony tend Respiratory: normal inspection, lungs clear, normal breath sounds, no respiratory distress, no retraction, no wheezing, speaking full sentences, chest symmetrical Cardiovascular #1: normal inspection, regular rate, rhythm, no edema, normal capillary refill Gastrointestinal: normal inspection, non tender, soft, non-distended, no guarding Musculoskeletal: normal inspection, back normal, normal range of motion, non- tender Neurologic: normal inspection, alert, oriented x3, responsive, motor strength/ tone normal, sensory intact, normal gait, speech normal Psychiatric: normal inspection, judgement/insight normal, memory normal Skin: normal inspection, normal color, no rash, warm/dry, well hydrated, normal turgor Medical Decision Making Diagnostic Impression: Primary Impression: Chest pain ER Course 51 yo M with pmhx htn p/w CP DDX: ACS vs. CHF vs. pneumonia vs. gastritis/GERD vs. pneumothorax PE on differential however at this time there are other more likely diagnoses. Plan: IV access, obtain labs including troponin, EKG, CXR ASA, pain control with nitro / morphine Anticipate admission ER course: Patient was treated with ASA. Pain was treated with nitroglycerin Labs unremarkable -neg troponin EKG reveals no mild ESTER and Q waves in V2V3 present on his previous EKGs CXR: no acute cardiopulmonary disease Patient has remained on a monitor, HD stable, chest pain improved. Disposition: Patient requires admission for chest pain. Patient requires admission for further workup, serial troponin, and possible stress test/cath inpatient. D/W Dr Dennis Hoffman EKG Diagnostic Results Rhythm: NSR ST Segments: other - Q waves V2 V3 with minimal ESTER however present on 2 previous EKGs ASA given to the pt in ED: Yes Rhythm Strip Diag. Results EP Interpretation: yes Rhythm: NSR, no PVC's Chest X-Ray Diagnostic Results Chest X-Ray Diagnostic Results : Chest X-Ray Ordered: Yes # of Views/Limited/Complete: 1 View Indication: Chest Pain EP Interpretation: Yes Interpretation: no acute cardiopulmonary disease Impression: No acute disease Interpreting ER Provider: Electronically signed by Nena Hyatt M.D. Last Vital Signs Date Time Temp Pulse Resp B/P Pulse Ox O2 Delivery O2 Flow Rate FiO2 12/21/16 10:38 97.9 75 15 147/81 100 Room Air Disposition: ADMITTED INPATIENT Condition: Serious Nena Hyatt M.D. Dec 21, 2016 11:17
[2016-12-21] MEDS ORDERED: HYDROCHLOROTHIA50 MG ORAL (11:30)
--- NOTE | 2016-12-21 11:42 | Diagnostic Imaging Report ---
Indication: Chest pain Technique: XRAY CHEST 1 V Comparison: 11/14/16 Findings: Cardiomediastinal silhouette is stable. There is no consolidation or pleural effusion. Osseous structures demonstrate no acute abnormality. Impression: No acute cardiopulmonary disease.
[2016-12-21 12:10] LABS: BASOPHILS % (AUTO) 1.5 % (0.0-2.0); EOSINOPHILS % (AUTO) 1.8 % (0.0-3.0); LYMPHOCYTES % (AUTO) 34.3 % (20.0-45.0); MEAN CORPUSCULAR HEMOGLOBIN 31.4 PG (27.0-31.0); MEAN CORPUSCULAR HGB CONC 33.3 G/DL (32.0-36.0); MEAN CORPUSCULAR VOLUME 94 FL (80-99); MEAN PLATELET VOLUME 7.3 FL (6.5-10.1); MONOCYTES % (AUTO) 9.6 % (1.0-10.0); NEUTROPHILS % (AUTO) 52.8 % (45.0-75.0); PLATELET COUNT 361 K/UL (150-450); RED BLOOD COUNT 5.36 M/UL (4.70-6.10); RED CELL DISTRIBUTION WIDTH 12.1 % (11.6-14.8); WHITE BLOOD COUNT 7.8 K/UL (4.8-10.8)
[2016-12-21 12:21] LABS: ALANINE AMINOTRANSFERASE 33 U/L (3-41); ALBUMIN/GLOBULIN RATIO 2.2 (1.0-2.7); ANION GAP 11 (5-15); ASPARTATE AMINO TRANSFERASE 24 U/L (5-40); CALCIUM 9.6 mg/dL (8.6-10.2); CARBON DIOXIDE 28 mEQ/L (20-30); CHLORIDE 99 mEQ/L (98-107); CREATININE 1.3 mg/dL (0.7-1.2); GLOMERULAR FILTRATION RATE > 60 mL/min (>60); HEMOLYSIS 50; POTASSIUM 4.2 mEQ/L (3.4-4.9); SODIUM 138 mEQ/L (135-145); TOTAL PROTEIN 6.5 g/dL (6.6-8.7); TROPONIN I < 0.30 ng/mL (<=0.30)
[2016-12-21] MEDS: Nitroglycerin Subl 0.4mg tab (Bottle Of 25) SL PRN ×2 (12:23→12:24)
[2016-12-21 12:32] LABS: CKMB 3.9 ng/mL (< 6.7)
[2016-12-21] MEDS ORDERED: DiphenhydrAMINE 50mg/ml Inj IVP ONE (12:45)
[2016-12-21] MEDS ORDERED: Nitroglycerin Subl 0.4mg tab (Bottle Of 25) SL PRN (12:45)
[2016-12-21] MEDS ORDERED: Diltiazem 25mg/5ml IV PRN (12:45)
[2016-12-21] MEDS ORDERED: DuoNeb 0.5-3(2.5)mg/3ml neb HHN PRN (12:45)
[2016-12-21] MEDS ORDERED: Miralax 17gm pkt ORAL PRN (12:45)
[2016-12-21] MEDS ORDERED: Enalaprilat 2.5mg/2ml Inj IV PRN ×2 (12:45→16:15)
[2016-12-21] MEDS ORDERED: Morphine Sulfate 4mg/ml Inj IVP ONE (12:45)
[2016-12-21 13:08] VITALS: BP 138/96
[2016-12-21 14:36] VITALS: BP 148/103
[2016-12-21] MEDS ORDERED: HydrALAZINE 10mg Tab ORAL PRN (15:45)
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
[2016-12-21 16:28] VITALS: BP 140/95
[2016-12-21] MEDS: Morphine Sulfate 2mg/ml Inj IVP PRN ×2 (16:45→21:19)
[2016-12-21] MEDS ORDERED: HYDROmorphone 4mg tab ORAL SCH (18:00)
[2016-12-21 20:00] VITALS: BP 145/79
--- NOTE | 2016-12-21 20:55 | Cardiology Progress Note ---
Assessment/Plan Assessment/Plan The patient is seen and examined, full consult note will be dictated. Objective Last 24 Hour Vital Signs Date Time Temp Pulse Resp B/P Pulse Ox O2 Delivery O2 Flow Rate FiO2 12/21/16 20:00 97.0 81 20 145/79 100 Room Air 12/21/16 19:50 96 Room Air 21 12/21/16 19:48 79 18 Room Air 21 12/21/16 19:48 79 18 Room Air 12/21/16 19:47 Room Air 21 12/21/16 16:28 97.8 78 20 140/95 98 Room Air 12/21/16 16:00 71 12/21/16 14:36 96.8 69 20 148/103 99 Room Air 12/21/16 14:00 97.9 65 16 138/96 99 Room Air 12/21/16 13:08 97.9 65 16 138/96 99 Room Air 12/21/16 12:24 146/100 12/21/16 12:23 146/100 12/21/16 11:25 72 18 Room Air 12/21/16 10:50 97.9 72 18 148/106 96 Room Air 12/21/16 10:38 97.9 75 15 147/81 100 Room Air Laboratory Tests Test 12/21/16 11:45 White Blood Count 7.8 K/UL (4.8-10.8) Red Blood Count 5.36 M/UL (4.70-6.10) Hemoglobin 16.8 G/DL (14.2-18.0) Hematocrit 50.6 % (42.0-52.0) Mean Corpuscular Volume 94 FL (80-99) Mean Corpuscular Hemoglobin 31.4 PG (27.0-31.0) H Mean Corpuscular Hemoglobin Concent 33.3 G/DL (32.0-36.0) Red Cell Distribution Width 12.1 % (11.6-14.8) Platelet Count 361 K/UL (150-450) Mean Platelet Volume 7.3 FL (6.5-10.1) Neutrophils (%) (Auto) 52.8 % (45.0-75.0) Lymphocytes (%) (Auto) 34.3 % (20.0-45.0) Monocytes (%) (Auto) 9.6 % (1.0-10.0) Eosinophils (%) (Auto) 1.8 % (0.0-3.0) Basophils (%) (Auto) 1.5 % (0.0-2.0) Sodium Level 138 mEQ/L (135-145) Potassium Level 4.2 mEQ/L (3.4-4.9) Chloride Level 99 mEQ/L (98-107) Carbon Dioxide Level 28 mEQ/L (20-30) Anion Gap 11 (5-15) Blood Urea Nitrogen 24 mg/dL (7-23) H Creatinine 1.3 mg/dL (0.7-1.2) H Estimat Glomerular Filtration Rate > 60 mL/min (>60) Glucose Level 98 mg/dL (74-106) Calcium Level 9.6 mg/dL (8.6-10.2) Total Bilirubin < 0.2 mg/dL (0.0-1.2) Aspartate Amino Transf (AST/SGOT) 24 U/L (5-40) Alanine Aminotransferase (ALT/SGPT) 33 U/L (3-41) Alkaline Phosphatase 109 U/L (40-129) Total Creatine Kinase 322 U/L (38-174) H Creatine Kinase MB 3.9 ng/mL (< 6.7) Creatine Kinase MB Relative Index 1.2 Troponin I < 0.30 ng/mL (<=0.30) Pro-B-Type Natriuretic Peptide 30 pg/mL (0-125) Total Protein 6.5 g/dL (6.6-8.7) L Albumin 4.5 g/dL (3.5-5.2) Globulin 2.0 g/dL Albumin/Globulin Ratio 2.2 (1.0-2.7) ELIANA MCGRATH Dec 21, 2016 20:55
[2016-12-21] MEDS ORDERED: Metoprolol Tartrate 50mg tab ORAL SCH (21:00)
[2016-12-21] MEDS ORDERED: Labetalol 200mg tab ORAL SCH (21:00)
[2016-12-21] MEDS ORDERED: Heparin 5000 units/ml inj SUBQ SCH (21:00)
[2016-12-21 21:20] VITALS: BP 145/79
[2016-12-21] MEDS ORDERED: HYDROmorphone 1mg/ml Carpuject IVP PRN (21:30)
[2016-12-21 21:39] LABS: TROPONIN I < 0.30 ng/mL (<=0.30)
[2016-12-22] MEDS ORDERED: DULoxetine 30mg cap ORAL SCH (09:00)
[2016-12-22] MEDS ORDERED: PredniSONE 20mg tab ORAL SCH (09:00)
--- NOTE | 2016-12-22 17:01 | Cardiology Report ---
APPROVED REPORT EKG Measurement Heart [id number] Normal sinus rhythm Septal infarct, age undetermined Abnormal ECG
--- NOTE | 2016-12-23 11:57 | Cardiology Report ---
APPROVED REPORT EXAM: Two-dimensional and M-mode echocardiogram with Doppler and color Doppler. INDICATION Left ventricular function M-Mode DIMENSIONS IVSd1.4 (0.7-1.1cm)Left Atrium (MM)2.9 (1.6-4.0cm) LVDd3.2 (3.5-5.6cm)Aortic Root2.9 (2.0-3.7cm) PWd1.4 (0.7-1.1cm)Aortic Cusp Exc.1.8 (1.5-2.0cm) LVDs1.2 (2.5-4.0cm) PWs1.6 cm Normal left ventricular chamber size, systolic function and wall motion. Left ventricular ejection fraction estimated to be 60-65 %. Moderate left ventricular hypertrophy. No evidence of pericardial fat or effusion. All other cardiac chamber sizes are within normal limits. Focal aortic valve sclerosis with adequate cusp excursion Thickened mitral valve leaflets with normal excursion. Mitral annulus and aortic root calcification. Pulmonic valve not well visualized. Normal tricuspid valve structure. IVC is normal in size with physiologic collapse. A color flow and spectral Doppler study was performed and revealed: No aortic regurgitation. No mitral regurgitation. Normal left ventricular diastolic function. No tricuspid regurgitation. Pulmonic regurgitation present.
--- NOTE | 2016-12-23 15:15 | Discharge Summary ---
Discharge Summary Hospital Course Date of Admission Dec 21, 2016 at 13:39 Date of Discharge Dec 21, 2016 at 23:30 Admitting Diagnosis Chest Pain HPI Teto Granda is a 51 year old male who was admitted on Dec 21, 2016 at 13:39 for Chest And Lower Back Pain Hospital Course dc summary #[id number] Discharge Discharge Disposition Patient signed AMA Discharge Diagnoses: Guilherme ([facility]),Reena GRACIA Dec 23, 2016 15:15
--- NOTE | 2016-12-24 00:30 | Consultation ---
DATE OF CONSULTATION: 12/21/2016 CARDIOLOGY CONSULTATION CONSULTING PHYSICIAN: Joni Mena M.D. REFERRING PHYSICIAN: Dennis Hoffman D.O. REASON FOR CONSULTATION: Management of chest pain. HISTORY OF PRESENT ILLNESS: The patient is a very unfortunate 51-year-old gentleman, who presents to the hospital with complaint of chest pain that has been going for just about a week. The patient apparently presents to the hospital with back pain as well as pain in most of his body including the chest wall area. The patient states that he has history of multiple sclerosis and he normally takes pain pain medication for his condition. He was seen by Cardiology within the past year and according to him a stress test had been done, which had revealed no coronary artery disease. At the time of arrival of the patient to the hospital, blood pressure was 147/81 and his heart rate was 75. The patient was admitted to the telemetry for further evaluation and management. PAST MEDICAL HISTORY: Including history of hypertension, history of multiple sclerosis, history of gastroesophageal reflux disease, history of TIA, history of headaches, history of body weakness, and history of right hand numbness. PAST SURGICAL HISTORY: None. LIST OF MEDICATIONS: Hydrochlorothiazide 50 mg p.o. daily, MiraLAX 17 g daily, prednisone 20 mg p.o. daily, labetalol 400 mg q.12 h., hydromorphone 1 mg q.4 h., hydralazine 50 mg twice daily, Cymbalta 50 mg p.o. daily, clonidine 0.2 mg q.12 h., amlodipine 10 mg p.o. daily, metoprolol 50 mg twice daily, zolpidem 5 mg p.o. at bedtime p.r.n. insomnia, acetaminophen 650 mg q.4 h. p.r.n. pain and temperature, diphenhydramine 25 mg p.o. q.6 h. p.r.n. for pruritus, gabapentin 300 mg three times daily, clonidine 0.1 mg q.4 h. p.r.n. blood pressure above 160 mmHg, atenolol 50 mg p.o. daily, hydrocodone and acetaminophen 10/325 mg one tablet q.4 h. p.r.n. for pain, ibuprofen 600 mg q.6 h. p.r.n. pain and aspirin 81 mg p.o. daily. ALLERGIES: Ketorolac. FAMILY HISTORY: No premature coronary artery disease in the first-degree relatives. REVIEW OF SYSTEMS: HEENT: Denies any headache, diplopia, or blurred vision. Constitutional: Complains of generalized body weakness, but no fever, chills, or night sweats. Cardiovascular: Complains of chest pain and shortness of breath. Denies any PND, orthopnea, leg swelling, palpitations, or syncope. Pulmonary: Denies any cough, wheezing, or phlegm. Gastrointestinal: Denies any nausea, vomiting, diarrhea, constipation, abdominal pain, or GI bleed. Genitourinary: Denies any hematuria, dysuria, or incontinence. Neurology: Denies any motor dysfunction, sensory deficit, or altered speech. PHYSICAL EXAMINATION: VITAL SIGNS: Blood pressure was 147/81, respirations of 15, temperature 97.9 degrees Fahrenheit, and O2 saturation 100%. GENERAL: The patient is a very pleasant, 51-year-old gentleman, in no apparent respiratory distress. Alert and oriented x4. HEENT: Atraumatic and normocephalic. Anicteric. Pupils are equal, round, and reactive to light and accommodation. Extraocular muscles intact. NECK: JVP is less than 5 cm. No carotid bruit. Carotid upstroke is 2+ bilaterally. CARDIOVASCULAR: Normal S1 and S2. Regular rate and rhythm. No murmurs, gallops, or rubs. PMI is at fourth intercostal space in midclavicular line. LUNGS: Clear to auscultation bilaterally. ABDOMEN: Soft, nontender, and nondistended. No hepatosplenomegaly. Positive bowel sounds. EXTREMITIES: No evidence of edema, clubbing, or cyanosis. LABORATORY AND DIAGNOSTIC FINDINGS: WBC is 7.8, hemoglobin 16.5, hematocrit 50.6, and platelet count 381,000. Troponin-I x2 negative. Sodium 138, potassium 4.2, chloride 99, bicarbonate 28, BUN 24, creatinine 1.3, and glucose 98. Calcium is 9.8. A 12-lead electrocardiogram shows sinus rhythm at a rate of 77 with septal infarct, age indeterminate. ASSESSMENT AND PLAN: The patient is a very unfortunate 51-year-old gentleman, seen in Cardiology consultation at request of Dr. Hoffman. 1. Most likely noncardiac chest pain. The pain is actually occurring throughout his body not really concentrated to the chest wall. The patient states that he presented to the hospital with low back pain. He is currently taking pain medication for his condition. He claims that he has had negative stress test within the past year at his Cardiology office. At this time, no further cardiac intervention is required. The patient can be safely transferred to Med/Surg area for continuation of treatment of his current issue. 2. History of hypertension. Blood pressure was slightly elevated at time of arrival to the hospital. 3. History of multiple sclerosis on a variety of narcotics and nonsteroidal anti-inflammatory medication. 4. History of transient ischemic attack. I would recommend aspirin to be continued. Also I would like to have him continue his current statin dose. I would like to thank, Dr. Hoffman, for allowing me to participate in care of this patient. Joni Mena M.D. DR: KELLEN JOB#: [id number] CC:
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
== END 2016-12-21 23:30 | disposition left against medical advice (07) | DRG 313 ==
LOC: EMR 11:31 → EDBEDREQ 12:37 → 2E 13:39
DX: R07.89 Other chest pain (principal); I25.10 Atherosclerotic heart disease of native coronary artery without angina pectoris; F11.20 Opioid dependence, uncomplicated; I16.0 Hypertensive urgency; G35 Multiple sclerosis; M51.36 Other intervertebral disc degeneration, lumbar region; M50.30 Other cervical disc degeneration, unspecified cervical region; Z91.81 History of falling; K21.9 Gastro-esophageal reflux disease without esophagitis; Z86.73 Personal history of transient ischemic attack (TIA), and cerebral infarction without residual deficits; Z88.8 Allergy status to other drugs, medicaments and biological substances
CPT/HCPCS: 36415; 71010; 80053; 82550; 82553; 83880; 84484; 85025; 87081; 93005; 93306; 94664; 94760; 99282

== ENCOUNTER 2016-12-30 09:51 | Emergency (ER) | payer MEDICARE, OTHER ==
[~2016-12-30] VITALS: Ht 182.9 cm; Wt 99.8 kg
--- NOTE | 2016-12-30 10:11 | Emergency Room Report ---
History of Present Illness General Chief Complaint: Lower Back Pain or Injury Source: Patient, Medical Record Present Illness HPI Patient presents with complaints of low back pain Reports he is undergoing pain management by Dr. mercado and he speaking with him regarding epidural injections However the pain had exacerbated the lower back And presents for further evaluation Denies any chest pain or shortness of breath denies any focal weakness pain is I lateral lower back region Worse with standing and ambulating better with rest Denies any saddle paresthesia or other neurological complaints Allergies: Coded Allergies: KETOROLAC (Verified Allergy, Severe, Anaphylaxis, 06/19/15) Patient History Past Medical History: see triage record Pertinent Family History: none Reviewed Nursing Documentation: PMH: Agreed, PSxH: Agreed Nursing Documentation-PMH Hx Cardiac Problems: Yes - CAD Hx Hypertension: Yes Hx Asthma: No Hx COPD: No Hx Diabetes: No Hx Cancer: No Hx Gastrointestinal Problems: Yes Hx Dialysis: No Hx Neurological Problems: Yes - multiple sclerosis Hx Cerebrovascular Accident: Yes - TIA (2013) Hx Transient Ischemic Attacks: No Hx Dementia: No Hx Alzheimer's Disease: No Hx Parkinson's Disease: No Hx Meningitis: No Hx Encephalitis: No Hx Seizures: No Hx Epilepsy: No Hx Multiple Sclerosis: Yes Hx Cerebral Palsy: No Hx Amyotrophic Lat Sclerosis: No Hx Guillian-Lynn Syndrome: No Hx Paralysis: No Hx Peripheral Neuropathy: No Hx Spinal Cord Injury: No Hx Head Trauma: No Hx Traumatic Brain Injury: No Hx Memory Loss: No Hx Concentration Difficulty: No Hx Speech Problem: No Hx Tremors: No Hx Vertigo: No Hx Dizziness: No Hx Syncope: Yes Hx Headaches: Yes - SOMETIMES Hx Aphasia: No Hx Dysphasia: No Hx Numbness: Yes - RIGHT HAND Hx Weakness: Yes - ALL OF THE BODY Hx Fatigue: Yes - SLIGHT Hx Neurologic Surgery: No Hx Brain Shunt: No Review of Systems All Other Systems: negative except mentioned in HPI Physical Exam Vital Signs Date Time Temp Pulse Resp B/P (MAP) Pulse Ox O2 Delivery O2 Flow Rate FiO2 12/30/16 09:52 98.1 65 16 178/128 100 Room Air Sp02 EP Interpretation: reviewed, normal General Appearance: well appearing, no apparent distress Head: normocephalic, atraumatic Eyes: bilateral eye PERRL, bilateral eye EOMI ENT: hearing grossly normal, normal pharynx, TMs + canals normal, uvula midline Neck: full range of motion, supple, no meningismus, no bony tend Respiratory: lungs clear, normal breath sounds, no rhonchi, no respiratory distress, no retraction, no accessory muscle use Cardiovascular #1: normal peripheral pulses, regular rate, rhythm, no edema, no gallop, no JVD, no murmur Gastrointestinal: normal bowel sounds, non tender, soft, no mass, no organomegaly, non-distended, no guarding, no hernia, no pulsatile mass, no rebound Genitourinary: no CVA tenderness Musculoskeletal: other - Patient is tender paraspinal L3-4-5 region, no obvious midline step-offs, sensory is intact Neurologic: oriented x3, responsive, office clinician III-XII nml as tested, sensory intact Psychiatric: mood/affect normal Skin: normal color, no rash, warm/dry, palpation normal Lymphatic: normal inspection, no adenopathy Medical Decision Making Diagnostic Impression: Primary Impression: Back sprain Additional Impression: Back pain ER Course Patient has multiple differentials considered There is however a significant chronicity to the patient's presentation he also reports that he will be having epidural injections upcoming this week patient is under the care of pain management His pain was addressed here in the emergency room And the patient will have close outpatient followup Last Vital Signs Date Time Temp Pulse Resp B/P (MAP) Pulse Ox O2 Delivery O2 Flow Rate FiO2 12/30/16 09:52 98.1 65 16 178/128 100 Room Air Status: improved Disposition: HOME, SELF-CARE Condition: Improved Additional Instructions: Patient is provided with the discharge instructions notified to follow up with primary doctor in the next 2-3 days otherwise return to the er with any worsening symptoms. Please note that this report is being documented using LastRoom technology. This can lead to erroneous entry secondary to incorrect interpretation by the dictating instrument. PATT ARRIAGA D.O. Dec 30, 2016 10:11
[2016-12-30] MEDS ORDERED: HYDROmorphone 1mg/ml Carpuject IM ONE (10:15)
[2016-12-30 11:04] VITALS: BP 160/120
[2016-12-30 11:30] VITALS: BP 160/120
[2016-12-30] MEDS ORDERED: VALACYCLOVIR1000 MG ORAL (19:20)
[2016-12-30] MEDS ORDERED: PREDNISONE20 MG ORAL (19:20)
== END 2016-12-30 11:30 | disposition home or self-care (01) ==
LOC: EMR 10:16
DX: S33.5XXA Sprain of ligaments of lumbar spine, initial encounter (principal); X58.XXXA Exposure to other specified factors, initial encounter; Y93.9 Activity, unspecified; Y92.9 Unspecified place or not applicable; Z88.8 Allergy status to other drugs, medicaments and biological substances; I10 Essential (primary) hypertension; I25.10 Atherosclerotic heart disease of native coronary artery without angina pectoris; G35 Multiple sclerosis; Z86.73 Personal history of transient ischemic attack (TIA), and cerebral infarction without residual deficits
CPT/HCPCS: 96372; 99285; J1170

== ENCOUNTER 2016-12-30 17:01 | Emergency (ER) | payer MEDICARE, OTHER ==
[~2016-12-30] VITALS: Ht 182.9 cm; Wt 99.8 kg
[2016-12-30 17:30] VITALS: BP 153/112
[2016-12-30] MEDS ORDERED: valACYclovir HCL 500mg tab ORAL ONE (17:30)
[2016-12-30] MEDS ORDERED: PredniSONE 20mg tab ORAL ONE (17:30)
--- NOTE | 2016-12-30 17:37 | Emergency Room Report ---
History of Present Illness General Chief Complaint: Stroke Symptoms Source: Patient, Medical Record Present Illness HPI 51YOM walk-in with left sided facial droop. Denies assoc slurred speech, headache, extremity weakness. Was seen/discharged earlier this morning from ED after eval for lower back pain ?Previous CVA. History of HTN. Denies eye droop, earache, pain Allergies: Coded Allergies: KETOROLAC (Verified Allergy, Severe, Anaphylaxis, 06/19/15) Patient History Past Medical History: HTN, CVA/TIA Past Surgical History: none Pertinent Family History: none Social History: Denies: smoking, alcohol use, drug use Immunizations: UTD Reviewed Nursing Documentation: PMH: Agreed, PSxH: Agreed Nursing Documentation-PMH Hx Cardiac Problems: Yes - CAD Hx Hypertension: Yes Hx Asthma: No Hx COPD: No Hx Diabetes: No Hx Cancer: No Hx Gastrointestinal Problems: Yes Hx Dialysis: No Hx Neurological Problems: Yes - multiple sclerosis Hx Cerebrovascular Accident: Yes - TIA (2013) Hx Transient Ischemic Attacks: No Hx Dementia: No Hx Alzheimer's Disease: No Hx Parkinson's Disease: No Hx Meningitis: No Hx Encephalitis: No Hx Seizures: No Hx Epilepsy: No Hx Multiple Sclerosis: Yes Hx Cerebral Palsy: No Hx Amyotrophic Lat Sclerosis: No Hx Guillian-[place] Syndrome: No Hx Paralysis: No Hx Peripheral Neuropathy: No Hx Spinal Cord Injury: No Hx Head Trauma: No Hx Traumatic Brain Injury: No Hx Memory Loss: No Hx Concentration Difficulty: No Hx Speech Problem: No Hx Tremors: No Hx Vertigo: No Hx Dizziness: No Hx Syncope: Yes Hx Headaches: Yes - SOMETIMES Hx Aphasia: No Hx Dysphasia: No Hx Numbness: Yes - RIGHT HAND Hx Weakness: Yes - ALL OF THE BODY Hx Fatigue: Yes - SLIGHT Hx Neurologic Surgery: No Hx Brain Shunt: No Review of Systems All Other Systems: negative except mentioned in HPI Physical Exam Vital Signs Date Time Temp Pulse Resp B/P (MAP) Pulse Ox O2 Delivery O2 Flow Rate FiO2 12/30/16 17:11 98.8 82 18 153/112 97 Room Air Sp02 EP Interpretation: reviewed, normal General Appearance: normal inspection, well appearing, no apparent distress, alert, GCS 15, non-toxic Head: normocephalic, atraumatic Eyes: bilateral eye PERRL, bilateral eye EOMI ENT: normal ENT inspection, hearing grossly normal, normal voice Neck: normal inspection, full range of motion, supple, no bony tend Respiratory: normal inspection, lungs clear, normal breath sounds, no respiratory distress, no retraction, no wheezing Cardiovascular #1: regular rate, rhythm, no edema Gastrointestinal: normal inspection, normal bowel sounds, non tender, soft, no guarding, no hernia Genitourinary: no CVA tenderness Musculoskeletal: normal inspection, back normal, normal range of motion, Caroline' s Sign negative Neurologic: normal inspection, alert, oriented x3, responsive, speech normal, other - Left sided facial droop with unable to raise left eyebrow, wrinkle forehead. No slurred speech Psychiatric: normal inspection, judgement/insight normal, mood/affect normal Skin: normal inspection, normal color, no rash Lymphatic: normal inspection Medical Decision Making Diagnostic Impression: Primary Impression: Calvillo's palsy Additional Impression: HTN (hypertension) Qualified Codes: I10 - Essential (primary) hypertension ER Course Likely Likely with non-forehead sparing left sided facial droop. Given prednisone, Valacyclovir in ED CT head negative Labs: No leuks. H&H stable. Troponin 0. SerumCr 1.3, c/w previous CKD Patient repeatedly demanding IV dialudid - review of EMR indicates previous ED visits for same, similar behavior on floor and signing out AMA I strongly encouraged patient to be admitted for r/o CVA, possibly with MRI given previous CVA, however Likely Palsy more likely Dx Patient verbalized understanding of my concern and my desire to admit. I explained to patient the risks of leaving AMA and patient informed that if they he leaves, he could get worse, he could become become critically ill, possibly become disabled or . Patient verbalized back to me understanding of these risks but still wants to leave. DC ed with Rx for prednisone and Valacyclovir for Likely Palsy EKG Diagnostic Results Rate: normal Rhythm: NSR ST Segments: no acute changes ASA given to the pt in ED: No Rhythm Strip Diag. Results EP Interpretation: yes Rate: 76 Rhythm: NSR, no PVC's, no ectopy Last Vital Signs Date Time Temp Pulse Resp B/P (MAP) Pulse Ox O2 Delivery O2 Flow Rate FiO2 12/30/16 17:11 98.8 82 18 153/112 97 Room Air Status: improved Disposition: ADMITTED INPATIENT Scripts Valacyclovir Hcl (VALACYCLOVIR) 1,000 Mg Tablet 1000 MG ORAL TID for 7 Days, #21 TAB Prov: DEBORA LAIRD M.D. 12/30/16 Prednisone* (PREDNISONE*) 20 Mg Tablet 60 MG ORAL DAILY for 7 Days, #21 TAB Prov: DEBORA LAIRD M.D. 12/30/16 DEBORA LAIRD M.D. Dec 30, 2016 17:37
[2016-12-30 18:14] LABS: BASOPHILS % (AUTO) 1.4 % (0.0-2.0); EOSINOPHILS % (AUTO) 1.2 % (0.0-3.0); LYMPHOCYTES % (AUTO) 26.9 % (20.0-45.0); MEAN CORPUSCULAR HEMOGLOBIN 33.5 PG (27.0-31.0); MEAN CORPUSCULAR HGB CONC 35.6 G/DL (32.0-36.0); MEAN CORPUSCULAR VOLUME 94 FL (80-99); MEAN PLATELET VOLUME 8.7 FL (6.5-10.1); MONOCYTES % (AUTO) 10.6 % (1.0-10.0); NEUTROPHILS % (AUTO) 59.9 % (45.0-75.0); PLATELET COUNT 149 K/UL (150-450); RED BLOOD COUNT 4.67 M/UL (4.70-6.10); RED CELL DISTRIBUTION WIDTH 12.5 % (11.6-14.8); WHITE BLOOD COUNT 7.7 K/UL (4.8-10.8)
[2016-12-30 18:31] LABS: INR 0.9 (0.9-1.1); PROTHROMBIN TIME 9.8 SEC (9.30-11.50)
[2016-12-30 18:46] LABS: TROPONIN I < 0.30 ng/mL (<=0.30)
[2016-12-30 18:51] LABS: ALANINE AMINOTRANSFERASE 31 U/L (3-41); ALBUMIN/GLOBULIN RATIO 1.9 (1.0-2.7); ANION GAP 16 (5-15); ASPARTATE AMINO TRANSFERASE 23 U/L (5-40); CALCIUM 9.5 mg/dL (8.6-10.2); CARBON DIOXIDE 24 mEQ/L (20-30); CHLORIDE 101 mEQ/L (98-107); CREATININE 1.3 mg/dL (0.7-1.2); GLOMERULAR FILTRATION RATE > 60 mL/min (>60); HEMOLYSIS 56; POTASSIUM 4.2 mEQ/L (3.4-4.9); SODIUM 141 mEQ/L (135-145); TOTAL PROTEIN 6.1 g/dL (6.6-8.7)
[2016-12-30 19:02] LABS: CKMB 4.1 ng/mL (< 6.7)
[2016-12-30 19:15] VITALS: BP 145/101
[2016-12-30] MEDS ORDERED: VALACYCLOVIR1000 MG ORAL (19:20)
[2016-12-30] MEDS ORDERED: PREDNISONE20 MG ORAL (19:20)
[2016-12-30 19:30] VITALS: BP 145/101
--- NOTE | 2016-12-31 09:53 | Diagnostic Imaging Report ---
Indication: Slurred speech. Left facial weakness droop. Headache. Extremity weakness Technique: Contiguous 5 mm thick transaxial imaging of the head obtained in a Siemens Sensation [address] scanner. Soft tissue and bone windows generated. Total Dose length Product (DLP): [address] Dose Index Volume (CTDIvol): 70.38, 0.15 mGy Comparison: 11/12/16 Findings: There is mild prominence of the ventricles, basal cisterns, and cerebral sulci consistent with atrophy. Mild, nonspecific, white matter hypoattenuation is noted throughout the brain consistent with chronic small vessel disease. There is no midline shift, edema, acute hemorrhage, mass effect, or abnormal extra-axial fluid collections. Bones and extra osseous soft tissues are unremarkable. Impression: No acute intracranial bleed, mass effect or edema. Mild atrophy of the brain. Nonspecific white matter hypoattenuation probably due to chronic small vessel disease. Note: Early signs of acute CVA may not be seen on CT. Consider MRI for further evaluation The CT scanner at [facility] is accredited by the [employer] and the scans are performed using dose optimization techniques as appropriate to a performed exam including Automatic Exposure control.
--- NOTE | 2016-12-31 11:57 | Diagnostic Imaging Report ---
Indication: Chest pain Comparison: 12/21/16 A single view chest radiograph was obtained. Findings: Cardiomediastinal appearance is within normal limits for age. Pulmonary vascularity is appropriate. The diaphragmatic contour is smooth and costophrenic angles are sharp. No pleural effusions are identified. The bones are unremarkable. Impression: No acute findings
--- NOTE | 2016-12-31 15:35 | Cardiology Report ---
APPROVED REPORT EKG Measurement Heart [id number] Normal sinus rhythm Septal infarct, age undetermined Abnormal ECG
== END 2016-12-30 19:40 | disposition left against medical advice (07) ==
LOC: EMR 19:39
DX: G51.0 Bell's palsy (principal); I10 Essential (primary) hypertension; Z88.8 Allergy status to other drugs, medicaments and biological substances; I25.10 Atherosclerotic heart disease of native coronary artery without angina pectoris; G35 Multiple sclerosis
CPT/HCPCS: 36415; 70450; 71010; 80053; 82550; 82553; 84484; 85025; 85610; 85730; 93005; 99284

== ENCOUNTER 2017-01-07 11:34 | Inpatient (IN) | payer MEDICARE, OTHER ==
[~2017-01-07] VITALS: Ht 182.9 cm; Wt 99.8 kg
[~2017-01-07 11:34] MED LIST changes: +VALACYCLOVIR1000 MG ORAL
[2017-01-07] MEDS ORDERED: METOPROLOL SUC100 MG ORAL (11:44)
[2017-01-07 11:53] VITALS: BP 169/117
[2017-01-07] MEDS ORDERED: Nitroglycerin Subl 0.4mg tab (Bottle Of 25) SL PRN ×2 (12:00→17:00)
[2017-01-07] MEDS ORDERED: Morphine Sulfate 4mg/ml Inj IVP ONE (12:45)
[2017-01-07 12:49] LABS: BASOPHILS % (AUTO) 1.4 % (0.0-2.0); EOSINOPHILS % (AUTO) 2.1 % (0.0-3.0); LYMPHOCYTES % (AUTO) 29.2 % (20.0-45.0); MEAN CORPUSCULAR HEMOGLOBIN 32.5 PG (27.0-31.0); MEAN CORPUSCULAR HGB CONC 34.4 G/DL (32.0-36.0); MEAN CORPUSCULAR VOLUME 94 FL (80-99); MONOCYTES % (AUTO) 8.1 % (1.0-10.0); NEUTROPHILS % (AUTO) 59.3 % (45.0-75.0); PLATELET COUNT 151 K/UL (150-450); RED BLOOD COUNT 5.11 M/UL (4.70-6.10); RED CELL DISTRIBUTION WIDTH 12.5 % (11.6-14.8); WHITE BLOOD COUNT 5.9 K/UL (4.8-10.8)
[2017-01-07 13:30] VITALS: BP 142/106
[2017-01-07] MEDS ORDERED: HYDROmorphone 1 MG in NS 55 ML IV ONE (13:30)
[2017-01-07 13:47] LABS: ALANINE AMINOTRANSFERASE 25 U/L (3-41); ALBUMIN/GLOBULIN RATIO 1.8 (1.0-2.7); ANION GAP 8 (5-15); ASPARTATE AMINO TRANSFERASE 17 U/L (5-40); CALCIUM 9.2 mg/dL (8.6-10.2); CARBON DIOXIDE 31 mEQ/L (20-30); CHLORIDE 100 mEQ/L (98-107); CREATININE 1.2 mg/dL (0.7-1.2); GLOMERULAR FILTRATION RATE > 60 mL/min (>60); HEMOLYSIS 11; POTASSIUM 4.3 mEQ/L (3.4-4.9); SODIUM 139 mEQ/L (135-145); TOTAL PROTEIN 5.9 g/dL (6.6-8.7); TROPONIN I < 0.30 ng/mL (<=0.30)
[2017-01-07] MEDS ORDERED: HYDROmorphone 1mg/ml Carpuject ONE (13:50)
[2017-01-07 13:58] LABS: CKMB 2.3 ng/mL (< 6.7)
[2017-01-07] MEDS ORDERED: DiphenhydrAMINE 50mg/ml Inj IVP ONE (14:15)
--- NOTE | 2017-01-07 14:45 | Diagnostic Imaging Report ---
Indication: Chest pain Comparison: 12/30/69 A single view chest radiograph was obtained. Findings: Cardiomediastinal appearance is within normal limits for age. Pulmonary vascularity is appropriate. The diaphragmatic contour is smooth and costophrenic angles are sharp. No pleural effusions are identified. The bones are unremarkable. Impression: No acute findings
--- NOTE | 2017-01-07 15:40 | Emergency Room Report ---
History of Present Illness General Chief Complaint: General Complaint Source: Patient Present Illness HPI 51-year-old male presents ED for evaluation. Patient referred by PMD for evaluation. Patient states that 2 days ago he fell in the shower and is now having neck and back pain. Pain is a 7/10, throbbing, nonradiating. Patient denies LOC. Patient also noted to have chest pain which started today. Substernal, 7/10, nonradiating. In triage patient is hypertensive. Has history of MS and hypertension. No other aggravating relieving factors. Denies any other associated symptoms Allergies: Coded Allergies: KETOROLAC (Verified Allergy, Severe, Anaphylaxis, 06/19/15) Patient History Past Medical History: HTN, CVA/TIA, other - MS Past Surgical History: none Pertinent Family History: none Social History: Denies: smoking, alcohol use, drug use Immunizations: UTD Reviewed Nursing Documentation: PMH: Agreed, PSxH: Agreed Nursing Documentation-PMH Hx Cardiac Problems: Yes - CAD Hx Hypertension: Yes Hx Asthma: No Hx COPD: No Hx Diabetes: No Hx Cancer: No Hx Gastrointestinal Problems: Yes Hx Dialysis: No Hx Neurological Problems: Yes - multiple sclerosis Hx Cerebrovascular Accident: Yes - TIA (2013) Hx Transient Ischemic Attacks: No Hx Dementia: No Hx Alzheimer's Disease: No Hx Parkinson's Disease: No Hx Meningitis: No Hx Encephalitis: No Hx Seizures: No Hx Epilepsy: No Hx Multiple Sclerosis: Yes Hx Cerebral Palsy: No Hx Amyotrophic Lat Sclerosis: No Hx Guillian-[place] Syndrome: No Hx Paralysis: No Hx Peripheral Neuropathy: No Hx Spinal Cord Injury: No Hx Head Trauma: No Hx Traumatic Brain Injury: No Hx Memory Loss: No Hx Concentration Difficulty: No Hx Speech Problem: No Hx Tremors: No Hx Vertigo: No Hx Dizziness: No Hx Syncope: Yes Hx Headaches: Yes - SOMETIMES Hx Aphasia: No Hx Dysphasia: No Hx Numbness: Yes - RIGHT HAND Hx Weakness: Yes - ALL OF THE BODY Hx Fatigue: Yes - SLIGHT Hx Neurologic Surgery: No Hx Brain Shunt: No Review of Systems All Other Systems: negative except mentioned in HPI Physical Exam Vital Signs Date Time Temp Pulse Resp B/P (MAP) Pulse Ox O2 Delivery O2 Flow Rate FiO2 01/07/17 11:38 97.7 63 20 97 Room Air 01/07/17 11:53 169/117 Sp02 EP Interpretation: reviewed, normal General Appearance: no apparent distress, alert, GCS 15, non-toxic Head: normocephalic, atraumatic Eyes: bilateral eye normal inspection, bilateral eye PERRL ENT: hearing grossly normal, normal pharynx, no angioedema, normal voice Neck: full range of motion, supple/symm/no masses, tender lateral Respiratory: chest non-tender, lungs clear, normal breath sounds, speaking full sentences Cardiovascular #1: regular rate, rhythm, no edema Cardiovascular #2: 2+ carotid (R), 2+ carotid (L), 2+ radial (R), 2+ radial (L) , 2+ dorsalis pedis (R), 2+ dorsalis pedis (L) Gastrointestinal: normal bowel sounds, non tender, soft, non-distended, no guarding, no rebound Rectal: deferred Genitourinary: normal inspection, no CVA tenderness Musculoskeletal: back normal, gait/station normal, normal range of motion, non- tender, tender - paraspinal tenderness Neurologic: alert, oriented x3, responsive, motor strength/tone normal, sensory intact, speech normal Psychiatric: judgement/insight normal, memory normal, mood/affect normal, no suicidal/homicidal ideation Reflexes: 3+ bicep (R), 3+ bicep (L), 3+ tricep (R), 3+ tricep (L), 3+ knee (R) , 3+ knee (L) Skin: normal color, no rash, warm/dry, well hydrated Lymphatic: no adenopathy Medical Decision Making Diagnostic Impression: Primary Impression: ACS (acute coronary syndrome) Additional Impressions: Hypertensive urgency Opiate dependence Qualified Codes: F11.20 - Opioid dependence, uncomplicated ER Course Hospital Course 51-year-old male presents to ED complaining of chest pain. Hypertensive in triage Differential diagnoses include: MN/unstable angina, hyperkalemia, hypertensive urgency Clinical course Patient placed on stretcher. 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 After initial history and physical I ordered labs, EKG, chest x-ray Exam pain was all paraspinal and no evidence of vertebral tenderness. I see no reason for imaging at this time labs reviewed- no leukocytosis, hemoglobin/hematocrit stable, electrolytes okay , troponins negative EKG - NSR, no acute ischemic changes interpreted by me Chest x-ray- unremarkable CT head negative Given aspirin. Required multiple rounds of pain medication. Required hydralazine for blood pressure control Case discussed with Dr. Ragland and he agreed to accept the patient to his service for further care and support I. I feel this is a highly complex case requiring extensive working including EKG/Rhythm strip, Xray/CT/US, Blood/urine lab work, repeat exams while in ED, and administration of strong opiates/narcotics for pain control, admission to hospital or close patient follow up. Diagnosis - hypertensive urgency, ACS, opiate dependence admitted to telemetry in serious condition Labs Test 01/07/17 12:30 01/07/17 13:15 White Blood Count 5.9 K/UL (4.8-10.8) Red Blood Count 5.11 M/UL (4.70-6.10) Hemoglobin 16.6 G/DL (14.2-18.0) Hematocrit 48.2 % (42.0-52.0) Mean Corpuscular Volume 94 FL (80-99) Mean Corpuscular Hemoglobin 32.5 PG (27.0-31.0) Mean Corpuscular Hemoglobin Concent 34.4 G/DL (32.0-36.0) Red Cell Distribution Width 12.5 % (11.6-14.8) Platelet Count 151 K/UL (150-450) Mean Platelet Volume 10.0 FL (6.5-10.1) Neutrophils (%) (Auto) 59.3 % (45.0-75.0) Lymphocytes (%) (Auto) 29.2 % (20.0-45.0) Monocytes (%) (Auto) 8.1 % (1.0-10.0) Eosinophils (%) (Auto) 2.1 % (0.0-3.0) Basophils (%) (Auto) 1.4 % (0.0-2.0) Sodium Level 139 mEQ/L (135-145) Potassium Level 4.3 mEQ/L (3.4-4.9) Chloride Level 100 mEQ/L (98-107) Carbon Dioxide Level 31 mEQ/L (20-30) Anion Gap 8 (5-15) Blood Urea Nitrogen 12 mg/dL (7-23) Creatinine 1.2 mg/dL (0.7-1.2) Estimat Glomerular Filtration Rate > 60 mL/min (>60) Glucose Level 118 mg/dL (74-106) Calcium Level 9.2 mg/dL (8.6-10.2) Total Bilirubin 0.3 mg/dL (0.0-1.2) Aspartate Amino Transf (AST/SGOT) 17 U/L (5-40) Alanine Aminotransferase (ALT/SGPT) 25 U/L (3-41) Alkaline Phosphatase 91 U/L (40-129) Total Creatine Kinase 92 U/L (38-174) Creatine Kinase MB 2.3 ng/mL (< 6.7) Creatine Kinase MB Relative Index 2.5 Troponin I < 0.30 ng/mL (<=0.30) Pro-B-Type Natriuretic Peptide 45 pg/mL (0-125) Total Protein 5.9 g/dL (6.6-8.7) Albumin 3.8 g/dL (3.5-5.2) Globulin 2.1 g/dL Albumin/Globulin Ratio 1.8 (1.0-2.7) EKG Diagnostic Results Rate: normal Rhythm: NSR ST Segments: no acute changes ASA given to the pt in ED: Yes Rhythm Strip Diag. Results EP Interpretation: yes Rhythm: NSR, no PVC's, no ectopy Chest X-Ray Diagnostic Results Chest X-Ray Diagnostic Results : Chest X-Ray Ordered: Yes # of Views/Limited/Complete: 1 View Indication: Chest Pain EP Interpretation: Yes Interpretation: no consolidation, no effusion, no pneumothorax, no acute cardiopulmonary disease Impression: No acute disease Electronically Signed by: Electronically signed by Maxime Waggoner MD Last Vital Signs Date Time Temp Pulse Resp B/P (MAP) Pulse Ox O2 Delivery O2 Flow Rate FiO2 01/07/17 14:38 170/114 01/07/17 11:53 97.7 61 19 100 Room Air Status: improved Disposition: ADMITTED INPATIENT Condition: Serious Referrals: BARBARA RAGLAND (PCP) MAXIME WAGGONER M.D. Jan 07, 2017 15:40
[2017-01-07 15:41] VITALS: BP 166/104
[2017-01-07] MEDS ORDERED: ATIVAN2 MG/1 ML IV (16:49)
[2017-01-07] MEDS ORDERED: METOPROLOL TAR100 MG ORAL (16:49)
--- NOTE | 2017-01-07 16:55 | Cardiac Electrophysiology PN ---
Subjective Subjective [id number] Assessment/Plan 1. Accelerated hypertension, resume labetalol 400 mg b.i.d. Hydralazine 50 bid, Clonidine 0.2 bid and Norvasc 10 daily 2. History of chest pain, ejection fraction is normal. Nuclear stress test2016 showed no evidence of ischemia. 3. Multiple sclerosis. 4. Opioid dependence. Objective Last 24 Hour Vital Signs Date Time Temp Pulse Resp B/P (MAP) Pulse Ox O2 Delivery O2 Flow Rate FiO2 01/07/17 15:50 166/104 01/07/17 15:41 97.7 79 14 166/104 99 Room Air 01/07/17 14:38 170/114 01/07/17 13:30 97.7 19 142/106 100 Room Air 01/07/17 11:53 97.7 61 19 169/117 100 Room Air 01/07/17 11:38 97.7 63 20 97 Room Air Intake and Output 01/07/17 01/08/17 19:00 07:00 Intake Total 556 ml Balance 556 ml Intake Oral 0 ml IV Total 556 ml Laboratory Tests Test 01/07/17 12:30 01/07/17 13:15 White Blood Count 5.9 K/UL (4.8-10.8) Red Blood Count 5.11 M/UL (4.70-6.10) Hemoglobin 16.6 G/DL (14.2-18.0) Hematocrit 48.2 % (42.0-52.0) Mean Corpuscular Volume 94 FL (80-99) Mean Corpuscular Hemoglobin 32.5 PG (27.0-31.0) H Mean Corpuscular Hemoglobin Concent 34.4 G/DL (32.0-36.0) Red Cell Distribution Width 12.5 % (11.6-14.8) Platelet Count 151 K/UL (150-450) Mean Platelet Volume 10.0 FL (6.5-10.1) Neutrophils (%) (Auto) 59.3 % (45.0-75.0) Lymphocytes (%) (Auto) 29.2 % (20.0-45.0) Monocytes (%) (Auto) 8.1 % (1.0-10.0) Eosinophils (%) (Auto) 2.1 % (0.0-3.0) Basophils (%) (Auto) 1.4 % (0.0-2.0) Sodium Level 139 mEQ/L (135-145) Potassium Level 4.3 mEQ/L (3.4-4.9) Chloride Level 100 mEQ/L (98-107) Carbon Dioxide Level 31 mEQ/L (20-30) H Anion Gap 8 (5-15) Blood Urea Nitrogen 12 mg/dL (7-23) Creatinine 1.2 mg/dL (0.7-1.2) Estimat Glomerular Filtration Rate > 60 mL/min (>60) Glucose Level 118 mg/dL (74-106) H Calcium Level 9.2 mg/dL (8.6-10.2) Total Bilirubin 0.3 mg/dL (0.0-1.2) Aspartate Amino Transf (AST/SGOT) 17 U/L (5-40) Alanine Aminotransferase (ALT/SGPT) 25 U/L (3-41) Alkaline Phosphatase 91 U/L (40-129) Total Creatine Kinase 92 U/L (38-174) Creatine Kinase MB 2.3 ng/mL (< 6.7) Creatine Kinase MB Relative Index 2.5 Troponin I < 0.30 ng/mL (<=0.30) Pro-B-Type Natriuretic Peptide 45 pg/mL (0-125) Total Protein 5.9 g/dL (6.6-8.7) L Albumin 3.8 g/dL (3.5-5.2) Globulin 2.1 g/dL Albumin/Globulin Ratio 1.8 (1.0-2.7) ELIANA SWANN Jan 07, 2017 16:55
[2017-01-07] MEDS ORDERED: HYDROmorphone 4mg tab ORAL PRN (17:00)
[2017-01-07] MEDS ORDERED: Morphine Sulfate 2mg/ml Inj IVP PRN (17:00)
[2017-01-07] MEDS ORDERED: Diltiazem 25mg/5ml IV PRN (17:00)
[2017-01-07] MEDS ORDERED: DuoNeb 0.5-3(2.5)mg/3ml neb HHN PRN (17:00)
[2017-01-07] MEDS ORDERED: Enalaprilat 2.5mg/2ml Inj IV PRN (17:00)
[2017-01-07] MEDS ORDERED: Miralax 17gm pkt ORAL PRN (17:00)
[2017-01-07] MEDS ORDERED: LORazepam Inj 2mg/ml 1ml IV PRN (17:45)
[2017-01-07 17:49] LABS: TROPONIN I < 0.30 ng/mL (<=0.30)
[2017-01-07 17:53] VITALS: BP 166/108
[2017-01-07] MEDS ORDERED: Metoprolol Succinate XL 100mg tab ORAL SCH (18:00)
[2017-01-07] MEDS ORDERED: HydrALAZINE 50mg tab ORAL SCH (18:00)
[2017-01-07] MEDS ORDERED: Heparin 5000 units/ml inj SUBQ SCH (21:00)
[2017-01-07] MEDS ORDERED: Labetalol 200mg tab ORAL SCH (21:00)
--- NOTE | 2017-01-07 23:30 | Consultation ---
DATE OF CONSULTATION: 01/07/2017 CARDIOLOGY CONSULTATION REFERRING PHYSICIAN: Dennis Hoffman D.O. REASON FOR CONSULTATION: Accelerated hypertension. HISTORY OF PRESENT ILLNESS: The patient is a 51-year-old gentleman that I am familiar with from multiple previous hospitalizations at [facility] as well as [facility]. The patient has history of hypertension and multiple sclerosis as well as history of asthma, diabetes, and coronary artery disease, who presented to the emergency room after he had a fall in the shower and now he started having neck pain and back pain. The patient did not lose consciousness. He also had chest pain. The pain was 7/10 and nonradiating. The patient was also hypertensive. The patient was admitted and a Cardiology consultation was obtained for further evaluation and management. PAST MEDICAL HISTORY: As mentioned above. FAMILY HISTORY: Noncontributory. SOCIAL HISTORY: He does not smoke or drink alcohol. REVIEW OF SYSTEMS: Review of systems was thoroughly performed and was negative other than what was mentioned in the history of present illness. PHYSICAL EXAMINATION: VITAL SIGNS: Blood pressure 170/110, respirations 18, pulse is 80, and he is afebrile. HEAD AND NECK: Shows no JVD. LUNGS: Clear. CARDIOVASCULAR: Shows regular S1 and S2 with no gallop or murmur. ABDOMEN: Soft and nontender. EXTREMITIES: No pitting edema. LABORATORY AND DIAGNOSTIC DATA: His EKG showed sinus rhythm and poor R-wave progression, but no acute ischemic changes. His labs show white count of 5.9, hemoglobin of 16.2, hematocrit 48.2, and platelet count of 151,000. Sodium 139, potassium 4.3, BUN 12, creatinine 1.2, and glucose of 118. His troponin is negative. ASSESSMENT AND PLAN: 1. Atypical chest pain after a fall. The first troponin is negative. We will completely rule out myocardial infarction protocol. The patient had echocardiogram on 12/21/2016 showed ejection fraction of 60% to 65%. His nuclear stress test on 09/02/2016 also showed no evidence of ischemia or scar. 2. Hypertension. We will resume the patient's antihypertensive agents. On previous admission, the patient was on labetalol 400 mg twice a day and hydralazine 50 mg twice a day, Norvasc and clonidine 0.2 mg twice a day. 3. Multiple sclerosis. 4. Opiate dependence. Thank you very much, Dr. Hoffman, for allowing me to participate in the care of this patient. Please do not hesitate to contact me for any questions regarding my evaluation. Joni Ferguson M.D. DR: ISIDRO JOB#: [id number] CC:
[2017-01-08] MEDS ORDERED: Aspirin Baby 81mg ORAL SCH (09:00)
--- NOTE | 2017-01-08 16:12 | Cardiology Report ---
APPROVED REPORT EKG Measurement Heart [id number] Normal sinus rhythm Septal infarct, age undetermined Abnormal ECG
--- NOTE | 2017-01-09 12:21 | Discharge Summary ---
Discharge Summary Hospital Course Date of Admission Jan 07, 2017 at 12:53 Date of Discharge Jan 07, 2017 at 19:30 Admitting Diagnosis ACS HPI Teto Granda is a 51 year old male who was admitted on Jan 07, 2017 at 12:53 for Acute Coronary Syndrome Hospital Course [id number] Discharge Discharge Disposition Patient left AMA Discharge Diagnoses: Alicia Castrejon NP Jan 09, 2017 12:21
--- NOTE | 2017-01-10 04:45 | Discharge Summary 2 SIG ---
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 BRIEF HOSPITAL COURSE: The patient is a 51-year-old male, who presented to ED, who was referred by PMD for further evaluation. The patient fell in the shower and was complaining of neck and back pain, 7/10, which is nonradiating and described to be throbbing. He denied loss of consciousness. He developed chest pain. On evaluation at triage, the patient was hypertensive. Blood pressure was elevated to 169/117. Labs showed no leukocytosis. Initial troponin was negative. EKG done showed normal sinus rhythm with no acute ischemic changes. Chest x-ray and CT of the head was unremarkable. He was given aspirin and multiple rounds of pain medication. He was given IV hydralazine for blood pressure control. He was then admitted to telemetry for further evaluation. However, full treatment was not carried out as the patient signed out against medical advice. FINAL DIAGNOSES: 1. Acute coronary syndrome. 2. Hypertensive urgency. 3. Opiate dependence. DISPOSITION: The patient signed against medical advice. Dennis Hoffman D.O. I have been assigned to dictate discharge summary on this account and I was not involved in the patient's management. Alicia Castrejon N.P. DR: QUINN JOB#: [id number] CC:
== END 2017-01-07 19:30 | disposition left against medical advice (07) | DRG 303 ==
LOC: EMR 12:22 → 2E 12:53 → EDBEDREQ 14:05 → 2E 15:50
DX: I25.119 Atherosclerotic heart disease of native coronary artery with unspecified angina pectoris (principal); F11.20 Opioid dependence, uncomplicated; I16.0 Hypertensive urgency; G35 Multiple sclerosis; J45.909 Unspecified asthma, uncomplicated; E11.9 Type 2 diabetes mellitus without complications; Z91.81 History of falling; M54.2 Cervicalgia; M54.9 Dorsalgia, unspecified
CPT/HCPCS: 36415; 71010; 80053; 82550; 82553; 83880; 84484; 85025; 93005; 99285

== ENCOUNTER 2017-01-11 12:23 | Inpatient (IN) | payer MEDICARE, OTHER ==
[~2017-01-11] VITALS: Ht 182.9 cm; Wt 99.8 kg
[~2017-01-11 12:23] MED LIST changes: +ATIVAN2 MG/1 ML IV; +METOPROLOL SUC100 MG ORAL; +METOPROLOL TAR100 MG ORAL
[2017-01-11 12:33] VITALS: BP 164/110
--- NOTE | 2017-01-11 12:52 | Emergency Room Report ---
History of Present Illness General Chief Complaint: Hypertension Source: Patient Present Illness HPI The patient presents with blood pressure out of control as well as low back pain. He states that when the pain is out of control he's unable to control his blood pressure. Has taken metoprol and clonidine at home. Was admitted earlier in the month for acute coronary syndrome. The patient also has history of Calvillo's palsy. The patient was seen yesterday at [facility]. He was given 3 mg of Dilaudid and also Benadryl. He states he has no pain medication at home. He is under the care of a pain management MD. He states last time admitted, oral dilaudid did not control pain. H/O multiple sclerosis. Also spine DJD. Claims that epidurals X2 have helped in the past. No fevers, incontinence, blood thinners, hematuria, increased weakness. Was admitted for evaluation for worsened MS. [place] to be stable at this time. 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 Allergies: Coded Allergies: KETOROLAC (Verified Allergy, Severe, Anaphylaxis, 06/19/15) Patient History Past Medical History: see triage record Social History: Reports: drug use Social History Narrative Reviewed Nursing Documentation: PMH: Agreed, PSxH: Agreed Nursing Documentation-PMH Hx Cardiac Problems: Yes - CAD Hx Hypertension: Yes Hx Asthma: No Hx COPD: No Hx Diabetes: No Hx Cancer: No Hx Gastrointestinal Problems: Yes Hx Dialysis: No Hx Neurological Problems: Yes - multiple sclerosis Hx Cerebrovascular Accident: Yes - TIA (2013) Hx Transient Ischemic Attacks: No Hx Dementia: No Hx Alzheimer's Disease: No Hx Parkinson's Disease: No Hx Meningitis: No Hx Encephalitis: No Hx Seizures: No Hx Epilepsy: No Hx Multiple Sclerosis: Yes Hx Cerebral Palsy: No Hx Amyotrophic Lat Sclerosis: No Hx Guillian-[place] Syndrome: No Hx Paralysis: No Hx Peripheral Neuropathy: No Hx Spinal Cord Injury: No Hx Head Trauma: No Hx Traumatic Brain Injury: No Hx Memory Loss: No Hx Concentration Difficulty: No Hx Speech Problem: No Hx Tremors: No Hx Vertigo: No Hx Dizziness: No Hx Syncope: Yes Hx Headaches: Yes - SOMETIMES Hx Aphasia: No Hx Dysphasia: No Hx Numbness: Yes - RIGHT HAND Hx Weakness: Yes - ALL OF THE BODY Hx Fatigue: Yes - SLIGHT Hx Neurologic Surgery: No Hx Brain Shunt: No Review of Systems All Other Systems: negative except mentioned in HPI Physical Exam Vital Signs Date Time Temp Pulse Resp B/P (MAP) Pulse Ox O2 Delivery O2 Flow Rate FiO2 01/11/17 12:33 98.8 71 15 164/110 100 Room Air Sp02 EP Interpretation: reviewed, normal General Appearance: well appearing, no apparent distress, GCS 15, other - pressured Head: normocephalic Eyes: bilateral eye normal inspection, bilateral eye PERRL, bilateral eye other - eye assymmetry ENT: moist mucus membranes Neck: supple Respiratory: lungs clear, normal breath sounds Cardiovascular #1: regular rate, rhythm Cardiovascular #2: 2+ radial (R) Gastrointestinal: normal inspection, normal bowel sounds, non tender, no mass, no bruit, non-distended Musculoskeletal: gait/station normal, normal range of motion, other - back with diffuse muscle spasm, no bone tenderness Neurologic: alert, oriented x3, motor strength/tone normal, DTRs symmetric, sensory intact, cerebellar normal, normal gait, speech normal Psychiatric: other - somewhat pressured Skin: normal inspection, warm/dry Medical Decision Making Diagnostic Impression: Primary Impression: Back pain Qualified Codes: M54.42 - Lumbago with sciatica, left side Additional Impressions: Lumbar degenerative disc disease HTN (hypertension) Qualified Codes: I10 - Essential (primary) hypertension Drug seeking behavior ER Course Patient presents with hypertension is out of control as well as low back pain. Differential includes acute coronary syndrome, acute myocardial infarction, electrolyte imbalance, renal failure amongst others. The patient will be evaluated with an EKG and labs. In addition to that a chest x-ray be performed. He'll be treated with antihypertensives and pain medication. EKG and labs unremarkable. Tox + for benzos. Blood pressure is better but patient still complaining of pain. Dilaudid repeated. Discussed with PMD who requests admission to hospital. Admit med Dr. Hoffman. Patient trying to ensure he will get dilaudid IV or IM. Message left with pain management MD (Tyler). Laboratory Tests Test 01/11/17 14:00 01/11/17 14:25 White Blood Count 7.2 K/UL (4.8-10.8) Red Blood Count 5.24 M/UL (4.70-6.10) Hemoglobin 16.9 G/DL (14.2-18.0) Hematocrit 49.7 % (42.0-52.0) Mean Corpuscular Volume 95 FL (80-99) Mean Corpuscular Hemoglobin 32.2 PG (27.0-31.0) H Mean Corpuscular Hemoglobin Concent 33.9 G/DL (32.0-36.0) Red Cell Distribution Width 12.5 % (11.6-14.8) Platelet Count 182 K/UL (150-450) Mean Platelet Volume 8.4 FL (6.5-10.1) Neutrophils (%) (Auto) 60.0 % (45.0-75.0) Lymphocytes (%) (Auto) 26.7 % (20.0-45.0) Monocytes (%) (Auto) 8.4 % (1.0-10.0) Eosinophils (%) (Auto) 3.3 % (0.0-3.0) H Basophils (%) (Auto) 1.6 % (0.0-2.0) Prothrombin Time 9.9 SEC (9.30-11.50) Prothrombin Time INR 0.9 (0.9-1.1) PTT 25 SEC (23-33) Sodium Level 141 mEQ/L (135-145) Potassium Level 4.2 mEQ/L (3.4-4.9) Chloride Level 101 mEQ/L (98-107) Carbon Dioxide Level 28 mEQ/L (20-30) Anion Gap 12 (5-15) Blood Urea Nitrogen 14 mg/dL (7-23) Creatinine 1.2 mg/dL (0.7-1.2) Estimate Glomerular Filtration Rate > 60 mL/min (>60) Glucose Level 108 mg/dL (74-106) H Calcium Level 9.7 mg/dL (8.6-10.2) Total Bilirubin 0.5 mg/dL (0.0-1.2) Aspartate Amino Transferase (AST) 22 U/L (5-40) Alanine Aminotransferase (ALT) 33 U/L (3-41) Alkaline Phosphatase 96 U/L (40-129) Total Creatine Kinase 154 U/L (38-174) Troponin I < 0.30 ng/mL (<=0.30) Pro-B-Type Natriuretic Peptide 27 pg/mL (0-125) Total Protein 6.4 g/dL (6.6-8.7) L Albumin 4.3 g/dL (3.5-5.2) Globulin 2.1 g/dL Albumin/Globulin Ratio 2.0 (1.0-2.7) Urine Color Pale yellow Urine Appearance Clear Urine pH 7 (4.5-8.0) Urine Specific Brewer 1.010 (1.005-1.035) Urine Protein Negative (NEGATIVE) Urine Glucose (UA) Negative (NEGATIVE) Urine Ketones Negative (NEGATIVE) Urine Occult Blood Negative (NEGATIVE) Urine Nitrite Negative (NEGATIVE) Urine Bilirubin Negative (NEGATIVE) Urine Urobilinogen Normal MG/DL (0.0-1.0) Urine Leukocyte Esterase Negative (NEGATIVE) Urine Opiates Screen Negative (NEGATIVE) Urine Barbiturates Screen Negative (NEGATIVE) Phencyclidine (PCP) Screen Negative (NEGATIVE) Urine Amphetamines Screen Negative (NEGATIVE) Urine Benzodiazepines Screen Positive (NEGATIVE) H Urine Cocaine Screen Negative (NEGATIVE) Urine Marijuana (THC) Screen Negative (NEGATIVE) EKG Diagnostic Results Rate: normal Rhythm: NSR ST Segments: no acute changes Rhythm Strip Diag. Results EP Interpretation: yes Rhythm: NSR, no PVC's, no ectopy Chest X-Ray Diagnostic Results Chest X-Ray Diagnostic Results : Chest X-Ray Ordered: Yes # of Views/Limited/Complete: 1 View Indication: Other EP Interpretation: Yes Interpretation: no consolidation, no effusion, no pneumothorax, no acute cardiopulmonary disease Impression: No acute disease Electronically Signed by: signed Johnnie Zavala MD Last Vital Signs Date Time Temp Pulse Resp B/P (MAP) Pulse Ox O2 Delivery O2 Flow Rate FiO2 01/11/17 17:48 98.8 71 19 139/71 100 Room Air Status: improved Disposition: ADMITTED INPATIENT Condition: Serious Johnnie Zavala M.D. Jan 11, 2017 12:52
[2017-01-11] MEDS ORDERED: cloNIDine 0.2mg Tab ORAL ONE (13:00)
[2017-01-11] MEDS ORDERED: HYDROmorphone 1mg/ml Carpuject IVP ONE ×2 (13:00→14:15)
[2017-01-11] MEDS ORDERED: DiphenhydrAMINE 50mg/ml Inj IVP ONE (13:00)
[2017-01-11 14:15] VITALS: BP 144/84
[2017-01-11 14:16] LABS: BASOPHILS % (AUTO) 1.6 % (0.0-2.0); EOSINOPHILS % (AUTO) 3.3 % (0.0-3.0); LYMPHOCYTES % (AUTO) 26.7 % (20.0-45.0); MEAN CORPUSCULAR HEMOGLOBIN 32.2 PG (27.0-31.0); MEAN CORPUSCULAR HGB CONC 33.9 G/DL (32.0-36.0); MEAN CORPUSCULAR VOLUME 95 FL (80-99); MEAN PLATELET VOLUME 8.4 FL (6.5-10.1); MONOCYTES % (AUTO) 8.4 % (1.0-10.0); PLATELET COUNT 182 K/UL (150-450); RED BLOOD COUNT 5.24 M/UL (4.70-6.10); RED CELL DISTRIBUTION WIDTH 12.5 % (11.6-14.8); WHITE BLOOD COUNT 7.2 K/UL (4.8-10.8)
[2017-01-11 14:35] VITALS: BP 126/68
[2017-01-11 14:36] LABS: ALANINE AMINOTRANSFERASE 33 U/L (3-41); ANION GAP 12 (5-15); ASPARTATE AMINO TRANSFERASE 22 U/L (5-40); CALCIUM 9.7 mg/dL (8.6-10.2); CARBON DIOXIDE 28 mEQ/L (20-30); CHLORIDE 101 mEQ/L (98-107); CREATININE 1.2 mg/dL (0.7-1.2); GLOMERULAR FILTRATION RATE > 60 mL/min (>60); HEMOLYSIS 14; INR 0.9 (0.9-1.1); POTASSIUM 4.2 mEQ/L (3.4-4.9); PROTHROMBIN TIME 9.9 SEC (9.30-11.50); SODIUM 141 mEQ/L (135-145); TOTAL PROTEIN 6.4 g/dL (6.6-8.7)
[2017-01-11 14:48] LABS: TROPONIN I < 0.30 ng/mL (<=0.30)
[2017-01-11 14:58] LABS: KETONES,URINE NEGATIVE (NEGATIVE); LEUKOCYTE ESTERASE ,URINE NEGATIVE (NEGATIVE); NITRITE,URINE NEGATIVE (NEGATIVE); PH,URINE 7 (4.5-8.0); PROTEIN,URINE NEGATIVE (NEGATIVE); UROBILINOGEN,URINE NORMAL MG/DL (0.0-1.0)
[2017-01-11 15:11] LABS: APPEARANCE,URINE CLEAR
[2017-01-11 16:01] VITALS: BP 132/68
[2017-01-11] MEDS ORDERED: Zolpidem 5mg tab ORAL PRN (16:15)
[2017-01-11] MEDS ORDERED: Miralax 17gm pkt ORAL PRN (16:15)
[2017-01-11] MEDS ORDERED: LORazepam Inj 2mg/ml 1ml IV PRN (16:15)
[2017-01-11] MEDS ORDERED: Mylanta II UD 30ml ORAL PRN (16:15)
[2017-01-11] MEDS ORDERED: Morphine Sulfate 2mg/ml Inj IVP PRN (16:15)
[2017-01-11] MEDS ORDERED: HYDROmorphone 4mg tab ORAL PRN (16:15)
[2017-01-11] MEDS ORDERED: Morphine Sulfate 4mg/ml Inj IVP PRN (16:15)
[2017-01-11 17:48] VITALS: BP 139/71
[2017-01-11] MEDS ORDERED: HydrALAZINE 50mg tab ORAL SCH (18:00)
[2017-01-11] MEDS ORDERED: Labetalol 200mg tab ORAL SCH (21:00)
[2017-01-11] MEDS ORDERED: Heparin 5000 units/ml inj SUBQ SCH (21:00)
[2017-01-12] MEDS ORDERED: Miralax 17gm pkt ORAL SCH (09:00)
--- NOTE | 2017-01-12 09:49 | Diagnostic Imaging Report ---
Indication: Chest pain Technique: XRAY CHEST 1 V. Comparison: 01/07/2017 Findings: The cardiomediastinal silhouette is unchanged. No new infiltrates are identified. Impression: No significant change from prior examination. No acute abnormality
--- NOTE | 2017-01-13 13:54 | Discharge Summary ---
Discharge Summary Hospital Course Date of Admission Jan 11, 2017 at 16:12 Date of Discharge Jan 11, 2017 at 18:33 Admitting Diagnosis intractable back pain HPI Teto Granda is a 51 year old male who was admitted on Jan 11, 2017 at 16:12 for Intractable Back Pain Hospital Course dc summary [id number] Discharge Discharge Disposition Patient signed AMA Discharge Diagnoses: Discharge Instructions Discharge Instructions Special Instructions I have been assigned to complete a D/C Summary on this account. I was not involved in the patient management Reena Vanegas NP (Vanchtein) Jan 13, 2017 13:54
--- NOTE | 2017-01-13 18:37 | Cardiology Report ---
APPROVED REPORT EKG Measurement Heart [id number] Normal sinus rhythm Anteroseptal infarct, age undetermined Abnormal ECG
--- NOTE | 2017-01-14 16:32 | Discharge Summary 2 SIG ---
DATE OF ADMISSION: 01/10/2017 DATE OF SIGNING AGAINST MEDICAL ADIE: 01/10/2017 History of present illness and ED stay: 51-year-old male with history of multiple sclerosis, degenerative disk disease, hypertension, and coronary artery disease, presented with uncontrolled blood pressure and low back pain. Blood pressure was 164/110. In the emergency department, the patient was treated for elevated blood pressure and was given analgesics. Urine toxicology screen was positive for benzodiazepine. Patient was to be admitted for management of intractable back pain. The patient noted to have multiple ER visits with signing against medical advice. The patient decided to sign against medical advice this time as well. The risks and benefits of signing against medical advice were discussed with the patient. The patient was insistent on leaving. He signed the paper and left from the emergency room. INITIAL DIAGNOSES: 1. Multiple sclerosis. 2. Degenerative disk disease. 3. Hypertension. 4. Multiple sclerosis. 5. Calvillo palsy. FINAL DIAGNOSES: 1. Intractable back pain. 2. Hypertensive urgency. 3. Lumbar degenerative disk disease. 4. Drug-seeking behavior. 5. Multiple sclerosis. 6. Calvillo palsy. Dennis Hoffman D.O. I have been assigned to dictate discharge summary on this account and I was not involved in the patient's management. Reena BanerjeeMount Sinai Health SystemAlex N.P. DR: Mica JOB#: [id number] CC: PIERCE
== END 2017-01-11 18:33 | disposition left against medical advice (07) | DRG 552 ==
LOC: EMR 12:55 → EDBEDREQ 16:03 → 4E 16:12
DX: M51.36 Other intervertebral disc degeneration, lumbar region (principal); I10 Essential (primary) hypertension; I05.0 Rheumatic mitral stenosis; M54.42 Lumbago with sciatica, left side; Z76.5 Malingerer [conscious simulation]; I25.10 Atherosclerotic heart disease of native coronary artery without angina pectoris; Z53.21 Procedure and treatment not carried out due to patient leaving prior to being seen by health care provider
CPT/HCPCS: 36415; 71010; 80053; 80300; 81003; 82550; 83880; 84484; 85025; 85610; 85730; 93005; 99285; J2405

== ENCOUNTER 2017-01-20 21:41 | Emergency (ER) | payer MEDICARE, OTHER ==
[~2017-01-20] VITALS: Ht 182.9 cm; Wt 99.8 kg
[2017-01-20 22:13] VITALS: BP 122/73
[2017-01-20] MEDS ORDERED: Norco 5mg/325mg tab ORAL ONE (22:30)
--- NOTE | 2017-01-20 22:30 | Emergency Room Report ---
History of Present Illness General Chief Complaint: Back Pain-No Injury Source: Patient Present Illness HPI Is a 51-year-old male with a history of chronic back pain. Also history of multiple sclerosis and high blood pressure. He presents with chief complaint of back pain. Pain is 10 out of 10. Throbbing in nature. He is scheduled to see a new pain specialist in 2 days. Said he is out of his pain medication. Requesting to milligram IM the a lot of injection. No incontinence of bowel or urine. No fever. No other complaint. No Trauma. Allergies: Coded Allergies: KETOROLAC (Verified Allergy, Severe, Anaphylaxis, 06/19/15) Patient History Past Medical History: see triage record, old chart reviewed, HTN Past Surgical History: other Pertinent Family History: none Social History: Denies: smoking Immunizations: other Reviewed Nursing Documentation: PMH: Agreed, PSxH: Agreed Nursing Documentation-PMH Hx Cardiac Problems: Yes - CAD Hx Hypertension: Yes Hx Asthma: No Hx COPD: No Hx Diabetes: No Hx Cancer: No Hx Gastrointestinal Problems: Yes Hx Dialysis: No Hx Neurological Problems: Yes - multiple sclerosis Hx Cerebrovascular Accident: Yes - TIA (2013) Hx Transient Ischemic Attacks: No Hx Dementia: No Hx Alzheimer's Disease: No Hx Parkinson's Disease: No Hx Meningitis: No Hx Encephalitis: No Hx Seizures: No Hx Epilepsy: No Hx Multiple Sclerosis: Yes Hx Cerebral Palsy: No Hx Amyotrophic Lat Sclerosis: No Hx Guillian-[place] Syndrome: No Hx Paralysis: No Hx Peripheral Neuropathy: No Hx Spinal Cord Injury: No Hx Head Trauma: No Hx Traumatic Brain Injury: No Hx Memory Loss: No Hx Concentration Difficulty: No Hx Speech Problem: No Hx Tremors: No Hx Vertigo: No Hx Dizziness: No Hx Syncope: Yes Hx Headaches: Yes - SOMETIMES Hx Aphasia: No Hx Dysphasia: No Hx Numbness: Yes - RIGHT HAND Hx Weakness: Yes - ALL OF THE BODY Hx Fatigue: Yes - SLIGHT Hx Neurologic Surgery: No Hx Brain Shunt: No Review of Systems Eye: Denies: eye pain, blurred vision ENT: Denies: ear pain, nose congestion, throat swelling Respiratory: Denies: cough, shortness of breath Cardiovascular: Denies: chest pain, palpitations Gastrointestinal: Denies: abdominal pain, diarrhea, nausea, vomiting Musculoskeletal: Reports: back pain, Denies: joint pain Skin: Denies: rash Neurological: Denies: headache, numbness Endocrine: Denies: increased thirst, increased urine Hematologic/Lymphatic: Denies: easy bruising All Other Systems: negative except mentioned in HPI Physical Exam Vital Signs Date Time Temp Pulse Resp B/P (MAP) Pulse Ox O2 Delivery O2 Flow Rate FiO2 01/20/17 21:51 97.9 100 16 122/73 98 Room Air vitals normal Sp02 EP Interpretation: reviewed, normal General Appearance: well appearing, no apparent distress, alert Head: normocephalic, atraumatic Eyes: bilateral eye PERRL, bilateral eye EOMI ENT: hearing grossly normal, normal pharynx Neck: full range of motion, supple, no meningismus Respiratory: chest non-tender, lungs clear, normal breath sounds Cardiovascular #1: regular rate, rhythm, no murmur Gastrointestinal: normal bowel sounds, non tender, no mass, no organomegaly, no bruit, non-distended Musculoskeletal: back normal - Diffuse lower back pain. No step-off. No deformity. no anesthesia, gait/station normal, normal range of motion Neurologic: alert, oriented x3 Psychiatric: mood/affect normal Skin: warm/dry Medical Decision Making Diagnostic Impression: Primary Impression: Back pain Qualified Codes: M54.5 - Low back pain Additional Impressions: Exacerbation of chronic back pain Opiate dependence Qualified Codes: F11.20 - Opioid dependence, uncomplicated ER Course Patient presents with exacerbation of chronic back pain. patient walked in here without a problem. Suspect a strong opioid dependence. We'll discharge home. I see no need for further x-rays or MRI. No evidence of cauda equina syndrome, spinal epidural abscess, or neoplastic process. Last Vital Signs Date Time Temp Pulse Resp B/P (MAP) Pulse Ox O2 Delivery O2 Flow Rate FiO2 01/20/17 22:13 97.9 100 16 122/73 98 Room Air Status: unchanged Disposition: HOME, SELF-CARE Condition: Stable Referrals: BARBARA RAGLAND (PCP) Patient Instructions: Back Pain, Adult Additional Instructions: followup with your DrKassandra in 7 days. Return if symptom worsen. JARVIS PARKS M.D. Jan 20, 2017 22:30
[2017-01-20 22:55] VITALS: BP 122/73
== END 2017-01-20 22:55 | disposition home or self-care (01) ==
LOC: EMR 22:08
DX: M54.5 Low back pain (principal); G89.29 Other chronic pain; F11.20 Opioid dependence, uncomplicated; G35 Multiple sclerosis; I25.10 Atherosclerotic heart disease of native coronary artery without angina pectoris; I10 Essential (primary) hypertension; Z88.8 Allergy status to other drugs, medicaments and biological substances; Z86.73 Personal history of transient ischemic attack (TIA), and cerebral infarction without residual deficits
CPT/HCPCS: 99283

== ENCOUNTER 2017-01-21 11:19 | Emergency (ER) | payer MEDICARE, OTHER ==
[~2017-01-21] VITALS: Ht 182.9 cm; Wt 99.8 kg
[2017-01-21 11:39] VITALS: BP 116/75
[2017-01-21] MEDS ORDERED: HYDROmorphone 1mg/ml Carpuject IM ONE (12:00)
[2017-01-21] MEDS ORDERED: DiphenhydrAMINE 50mg/ml Inj IM ONE (12:00)
[2017-01-21 12:26] VITALS: BP 116/75
--- NOTE | 2017-01-22 15:38 | Emergency Room Report ---
History of Present Illness General Chief Complaint: Pain Source: Patient Present Illness HPI 51-year-old male presents to ED complaining of back pain. Patient is chronic history of back pain earache denies any recent trauma. Pain is a 10 out of 10, throbbing, nonradiating. Patient was here last night and was given one tablet of Dixon but states it did not help. Patient scheduled to see pain management tomorrow. PMD is Dr. Hoffman. Denies any bowel or bladder incontinence. Denies any leg or motor weakness Allergies: Coded Allergies: KETOROLAC (Verified Allergy, Severe, Anaphylaxis, 06/19/15) Patient History Past Medical History: HTN, CAD Past Surgical History: none Pertinent Family History: none Social History: Denies: smoking, alcohol use, drug use Immunizations: UTD Reviewed Nursing Documentation: PMH: Agreed, PSxH: Agreed Nursing Documentation-PMH Hx Cardiac Problems: Yes - CAD Hx Hypertension: Yes Hx Asthma: No Hx COPD: No Hx Diabetes: No Hx Cancer: No Hx Gastrointestinal Problems: Yes Hx Dialysis: No Hx Neurological Problems: Yes - multiple sclerosis Hx Cerebrovascular Accident: Yes - TIA (2013) Hx Transient Ischemic Attacks: No Hx Dementia: No Hx Alzheimer's Disease: No Hx Parkinson's Disease: No Hx Meningitis: No Hx Encephalitis: No Hx Seizures: No Hx Epilepsy: No Hx Multiple Sclerosis: Yes Hx Cerebral Palsy: No Hx Amyotrophic Lat Sclerosis: No Hx Guillian-[place] Syndrome: No Hx Paralysis: No Hx Peripheral Neuropathy: No Hx Spinal Cord Injury: No Hx Head Trauma: No Hx Traumatic Brain Injury: No Hx Memory Loss: No Hx Concentration Difficulty: No Hx Speech Problem: No Hx Tremors: No Hx Vertigo: No Hx Dizziness: No Hx Syncope: Yes Hx Headaches: Yes - SOMETIMES Hx Aphasia: No Hx Dysphasia: No Hx Numbness: Yes - RIGHT HAND Hx Weakness: Yes - ALL OF THE BODY Hx Fatigue: Yes - SLIGHT Hx Neurologic Surgery: No Hx Brain Shunt: No Review of Systems All Other Systems: negative except mentioned in HPI Physical Exam Vital Signs Date Time Temp Pulse Resp B/P (MAP) Pulse Ox O2 Delivery O2 Flow Rate FiO2 01/21/17 11:35 97.9 89 20 116/75 97 Room Air Sp02 EP Interpretation: reviewed, normal General Appearance: no apparent distress, alert, GCS 15, non-toxic Head: normocephalic, atraumatic Eyes: bilateral eye normal inspection, bilateral eye PERRL ENT: hearing grossly normal, normal pharynx, no angioedema, normal voice Neck: full range of motion, supple/symm/no masses Respiratory: chest non-tender, lungs clear, normal breath sounds, speaking full sentences Cardiovascular #1: regular rate, rhythm, no edema Cardiovascular #2: 2+ carotid (R), 2+ carotid (L), 2+ radial (R), 2+ radial (L) , 2+ dorsalis pedis (R), 2+ dorsalis pedis (L) Gastrointestinal: normal bowel sounds, non tender, soft, non-distended, no guarding, no rebound Rectal: deferred Genitourinary: normal inspection, no CVA tenderness Musculoskeletal: gait/station normal, normal range of motion, tender - paraspinal lumbar tenderness Neurologic: alert, oriented x3, responsive, motor strength/tone normal, sensory intact, speech normal Psychiatric: judgement/insight normal, memory normal, mood/affect normal, no suicidal/homicidal ideation Reflexes: 3+ bicep (R), 3+ bicep (L), 3+ tricep (R), 3+ tricep (L), 3+ knee (R) , 3+ knee (L) Skin: normal color, no rash, warm/dry, well hydrated Lymphatic: no adenopathy Medical Decision Making Diagnostic Impression: Primary Impression: Back pain Qualified Codes: M54.5 - Low back pain; G89.29 - Other chronic pain Additional Impression: Narcotic dependence ER Course Hospital Course 51-year-old male presents ED complaining of lower back pain. No evidence of trauma Differential diagnoses include: pyelonephritis, kidney stone, muscle strain, Lspine fracture Clinical course Patient placed on stretcher. After initial history and physical I reviewed EMR. Patient has multiple visits for pain-related complaints and has high pain threshold. Patient is requesting 2 mg of Dilaudid. Patient received one tablet Dixon last night. I agreed provided with 1 mg of Dilaudid but would not provide him any prescriptions. Patient does need to see pain management if he wants any more medication Upon reassessment patient states pain has improved. Diagnosis - back pain , narcotic dependence Stable and discharged to home. Followup with PMD/pain management. Return to ED if symptoms recur or worsen Last Vital Signs Date Time Temp Pulse Resp B/P (MAP) Pulse Ox O2 Delivery O2 Flow Rate FiO2 01/21/17 12:26 97.9 81 20 116/75 99 Room Air Status: improved Disposition: HOME, SELF-CARE Condition: Stable Referrals: NOT CHOSEN IPA/,REFERRING Patient Instructions: Chronic Pain RUFUS CHASE M.D. Jan 22, 2017 15:38
== END 2017-01-21 12:27 | disposition home or self-care (01) ==
LOC: EMR 12:05
DX: M54.5 Low back pain (principal); G89.29 Other chronic pain; F11.20 Opioid dependence, uncomplicated; Z88.8 Allergy status to other drugs, medicaments and biological substances; I25.10 Atherosclerotic heart disease of native coronary artery without angina pectoris; I10 Essential (primary) hypertension; G35 Multiple sclerosis; Z86.73 Personal history of transient ischemic attack (TIA), and cerebral infarction without residual deficits
CPT/HCPCS: 96372; 99284; J1170; J1200

== ENCOUNTER 2017-01-26 17:33 | Emergency (ER) | payer MEDICARE, OTHER ==
[~2017-01-26] VITALS: Ht 182.9 cm; Wt 99.8 kg
--- NOTE | 2017-01-26 18:13 | Emergency Room Report ---
History of Present Illness General Chief Complaint: Pain Present Illness HPI Patient is a 51-year-old male who presents today with complaints of back pain. He has chronic back pain and is well known to the ED for the same complaint. He states he normally takes Dilaudid 4 mg by mouth every 6 hours at home but has run out. He had an appointment to see his pain specialist in 3 days ago but they were unwilling to prescribe him Dilaudid as they did not have the results of his MRI. He states he is currently a 9/10 pain and has not taken medications for it. Denies any changes in bowel or bladder habits. Denies saddle anesthesia, numbness, tingling, loss of sensation. He denies any recent falls or trauma. Allergies: Coded Allergies: KETOROLAC (Verified Allergy, Severe, Anaphylaxis, 06/19/15) Patient History Reviewed Nursing Documentation: PMH: Agreed, PSxH: Agreed Nursing Documentation-PMH Hx Cardiac Problems: Yes - CAD Hx Hypertension: Yes Hx Asthma: No Hx COPD: No Hx Diabetes: No Hx Cancer: No Hx Gastrointestinal Problems: Yes Hx Dialysis: No Hx Neurological Problems: Yes - multiple sclerosis Hx Cerebrovascular Accident: Yes - TIA (2013) Hx Transient Ischemic Attacks: No Hx Dementia: No Hx Alzheimer's Disease: No Hx Parkinson's Disease: No Hx Meningitis: No Hx Encephalitis: No Hx Seizures: No Hx Epilepsy: No Hx Multiple Sclerosis: Yes Hx Cerebral Palsy: No Hx Amyotrophic Lat Sclerosis: No Hx Guillian-[place] Syndrome: No Hx Paralysis: No Hx Peripheral Neuropathy: No Hx Spinal Cord Injury: No Hx Head Trauma: No Hx Traumatic Brain Injury: No Hx Memory Loss: No Hx Concentration Difficulty: No Hx Speech Problem: No Hx Tremors: No Hx Vertigo: No Hx Dizziness: No Hx Syncope: Yes Hx Headaches: Yes - SOMETIMES Hx Aphasia: No Hx Dysphasia: No Hx Numbness: Yes - RIGHT HAND Hx Weakness: Yes - ALL OF THE BODY Hx Fatigue: Yes - SLIGHT Hx Neurologic Surgery: No Hx Brain Shunt: No Review of Systems Musculoskeletal: Reports: back pain All Other Systems: negative except mentioned in HPI Physical Exam Vital Signs Date Time Temp Pulse Resp B/P (MAP) Pulse Ox O2 Delivery O2 Flow Rate FiO2 01/26/17 17:41 97.9 97 20 158/111 96 Room Air Sp02 EP Interpretation: reviewed, normal General Appearance: no apparent distress, alert, GCS 15, non-toxic Head: normocephalic, atraumatic Eyes: bilateral eye normal inspection, bilateral eye PERRL ENT: hearing grossly normal, normal pharynx, no angioedema, normal voice Neck: full range of motion, supple/symm/no masses Respiratory: chest non-tender, lungs clear, normal breath sounds, speaking full sentences Cardiovascular #1: regular rate, rhythm, no edema Cardiovascular #2: 2+ carotid (R), 2+ carotid (L), 2+ radial (R), 2+ radial (L) , 2+ dorsalis pedis (R), 2+ dorsalis pedis (L) Gastrointestinal: normal bowel sounds, non tender, soft, non-distended, no guarding, no rebound Rectal: deferred Genitourinary: normal inspection, no CVA tenderness Musculoskeletal: back normal, gait/station normal, normal range of motion, other - tenderness to palpation along the paraspinous muscles in lumbar spine, no midline tenderness Neurologic: alert, oriented x3, responsive, motor strength/tone normal, sensory intact, speech normal, other - 5 out of 5 strength inilateral lower extremities, sensation is intact, normal gait, eurovascularly intact, pulses are present and equal Psychiatric: judgement/insight normal, memory normal, mood/affect normal, no suicidal/homicidal ideation Reflexes: 3+ bicep (R), 3+ bicep (L), 3+ tricep (R), 3+ tricep (L), 3+ knee (R) , 3+ knee (L) Skin: normal color, no rash, warm/dry, well hydrated Lymphatic: no adenopathy Medical Decision Making PA Attestation supervising physician is Dr. Griffiths ER Course Patient is well-known to the ED requesting pain medications. Patient is given Decadron and [place] for pain that during stay. However, I explained to patient I am unwilling to prescribe narcotic medications to him. Patient understands. Low index of suspicion for cardiac line based on history and physical. Patient is discharged home with instructions to follow up with pain management. Last Vital Signs Date Time Temp Pulse Resp B/P (MAP) Pulse Ox O2 Delivery O2 Flow Rate FiO2 01/26/17 17:41 97.9 97 20 158/111 96 Room Air Status: improved Disposition: HOME, SELF-CARE Condition: Stable Alma Lamb Jan 26, 2017 18:13
[2017-01-26] MEDS ORDERED: Dexamethasone 4mg/ml vial IM ONE (18:15)
[2017-01-26] MEDS ORDERED: Norco 5mg/325mg tab ORAL ONE (18:15)
[2017-01-26 18:33] VITALS: BP 149/99
[2017-01-26 18:34] VITALS: BP 158/111
== END 2017-01-26 18:45 | disposition home or self-care (01) ==
LOC: EMR 18:39
DX: M54.9 Dorsalgia, unspecified (principal); Z88.8 Allergy status to other drugs, medicaments and biological substances; I25.10 Atherosclerotic heart disease of native coronary artery without angina pectoris; I10 Essential (primary) hypertension; Z86.73 Personal history of transient ischemic attack (TIA), and cerebral infarction without residual deficits
CPT/HCPCS: 96372; 99284; J1100

== ENCOUNTER 2017-02-08 18:32 | Emergency (ER) | payer MEDICARE, OTHER ==
[~2017-02-08] VITALS: Ht 182.9 cm; Wt 99.8 kg
[2017-02-08 18:52] VITALS: BP 123/87
--- NOTE | 2017-02-08 19:16 | Emergency Room Report ---
History of Present Illness General Chief Complaint: Lower Back Pain or Injury Source: Patient, Medical Record Present Illness HPI 51-year-old male presents to the emergency department complaining of 10 out of 10 in severity low back pain bilaterally with more pain localized to the right side. Patient reports long-standing history of chronic low back pain with history of multiple sclerosis in addition to L4 and L5 disc problems. Patient states that he normally is prescribed Dilaudid however he was unable to fill his most recent prescription from his pain management DrKassandra because the prescription was signed by both and the PA and pharmacy refused to fill it. Patient denies any trauma or fall. Patient denies recent spinal procedure or fevers. Patient denies history of neoplastic disease. he states that his pain is in-line with normal character of his pain. Patient is requesting injection of Dilaudid or morphine for control of his pain at this time. Denies numbness tingling or loss of sensation or gross motor movements of the extremities, incontinence of bowel or bladder. Denies CP, Palpitations, LOC, AMS, dizziness, Changes in Vision, Sensation, paresthesias, or a sudden severe headache. Allergies: Coded Allergies: KETOROLAC (Verified Allergy, Severe, Anaphylaxis, 06/19/15) Patient History Past Medical History: see triage record Past Surgical History: none Pertinent Family History: none Reviewed Nursing Documentation: PMH: Agreed, PSxH: Agreed Nursing Documentation-PMH Past Medical History: No History, Except For Hx Cardiac Problems: Yes - CAD Hx Hypertension: Yes Hx Asthma: No Hx COPD: No Hx Diabetes: No Hx Cancer: No Hx Gastrointestinal Problems: Yes Hx Dialysis: No Hx Neurological Problems: Yes - multiple sclerosis Hx Cerebrovascular Accident: Yes - TIA (2013) Hx Transient Ischemic Attacks: No Hx Dementia: No Hx Alzheimer's Disease: No Hx Parkinson's Disease: No Hx Meningitis: No Hx Encephalitis: No Hx Seizures: No Hx Epilepsy: No Hx Multiple Sclerosis: Yes Hx Cerebral Palsy: No Hx Amyotrophic Lat Sclerosis: No Hx Guillian-[place] Syndrome: No Hx Paralysis: No Hx Peripheral Neuropathy: No Hx Spinal Cord Injury: No Hx Head Trauma: No Hx Traumatic Brain Injury: No Hx Memory Loss: No Hx Concentration Difficulty: No Hx Speech Problem: No Hx Tremors: No Hx Vertigo: No Hx Dizziness: No Hx Syncope: Yes Hx Headaches: Yes - SOMETIMES Hx Aphasia: No Hx Dysphasia: No Hx Numbness: Yes - RIGHT HAND Hx Weakness: Yes - ALL OF THE BODY Hx Fatigue: Yes - SLIGHT Hx Neurologic Surgery: No Hx Brain Shunt: No Review of Systems All Other Systems: negative except mentioned in HPI Physical Exam Vital Signs Date Time Temp Pulse Resp B/P (MAP) Pulse Ox O2 Delivery O2 Flow Rate FiO2 02/08/17 18:35 97.7 102 18 123/87 97 Room Air Sp02 EP Interpretation: reviewed, normal General Appearance: no apparent distress, alert, GCS 15, non-toxic Head: normocephalic, atraumatic Eyes: bilateral eye normal inspection, bilateral eye PERRL ENT: hearing grossly normal, normal voice Neck: full range of motion, supple/symm/no masses Respiratory: lungs clear, normal breath sounds, speaking full sentences Cardiovascular #1: regular rate, rhythm Gastrointestinal: normal bowel sounds, non tender, soft, no guarding, no pulsatile mass, no rebound Rectal: deferred Genitourinary: normal inspection, no CVA tenderness Musculoskeletal: back normal, normal range of motion, tender - TTP to the bilateral paraspinal muscles and the upper glutes bilaterally, no appreciable midline ttp, no obvious deformities or step-offs. pt. is ambulatory with a walker, no unilateral weakness. Neurologic: alert, oriented x3, responsive, motor strength/tone normal, sensory intact, speech normal Psychiatric: judgement/insight normal, memory normal, mood/affect normal Reflexes: 2+ knee (R), 2+ knee (L) Skin: normal color, no rash, warm/dry, well hydrated Medical Decision Making PA Attestation Dr. Zavala is my supervising Physician whom patient management has been discussed with. Diagnostic Impression: Primary Impression: Chronic back pain Qualified Codes: M54.5 - Low back pain; G89.29 - Other chronic pain Additional Impression: Drug tolerance Qualified Codes: T50.905A - Adverse effect of unspecified drugs, medicaments and biological substances, initial encounter ER Course 51-year-old male presents to the emergency department complaining of 10 out of 10 in severity low back pain bilaterally with more pain localized to the right side. Patient reports long-standing history of chronic low back pain with history of multiple sclerosis in addition to L4 and L5 disc problems. Patient states that he normally is prescribed Dilaudid however he was unable to fill his most recent prescription from his pain management DrKassandra because the prescription was signed by both and the PA and pharmacy refused to fill it. Patient denies any trauma or fall. Patient denies recent spinal procedure or fevers. Patient denies history of neoplastic disease. he states that his pain is in-line with normal character of his pain. Patient is requesting injection of Dilaudid or morphine for control of his pain at this time. Denies numbness tingling or loss of sensation or gross motor movements of the extremities, incontinence of bowel or bladder. Denies CP, Palpitations, LOC, AMS, dizziness, Changes in Vision, Sensation, paresthesias, or a sudden severe headache. Ddx considered: epidural abscess, fracture, sprain/strain, meningitis, spinal chord injury. Vital signs reviewed and are WNL during ED visit. Pt. is afebrile with no signs of infection No new symptoms, and denies recent trauma. No saddle anesthesia noted, Pt. denies incontinence Neurovascular is intact ROM is limited due to pain * Mild Tenderness to palpation to paraspinal muscles of the bilateral lower back, no spinous process tenderness, no midline tenderness. *Pt. describes pain today as moderate and radiates across the lower back. ORDERS: none warranted at this time. INTERVENTIONS: - Percocet PO D/W Pt. that for further pain management is it recommended to consult PCP or a Chronic Pain management doctor. A provider who can safely prescribe controlled substances with close follow up. DISCHARGE: At this time pt. is stable for d/c to home. Will provide printed patient care instructions, and any necessary prescriptions. Care plan and follow up instructions have been discussed with the patient prior to discharge. Last Vital Signs Date Time Temp Pulse Resp B/P (MAP) Pulse Ox O2 Delivery O2 Flow Rate FiO2 02/08/17 18:52 97.7 99 18 123/87 97 Room Air Disposition: HOME, SELF-CARE Condition: Stable Referrals: BARBARA RAGLAND (PCP) Patient Instructions: Chronic Back Pain Additional Instructions: Take any previously prescribed medications as directed. Follow up with a seo specialist or your PCP in 3-5 days, even if your symptoms have resolved. Return sooner to ED if new symptoms occur, or current symptoms become worse. - Please note that this Emergency Department Report was dictated using Raytheonkennel technician technology software, occasionally this can lead to erroneous entry secondary to interpretation by the dictation equipment. Shayy Weinberg Feb 08, 2017 19:16
[2017-02-08 19:30] VITALS: BP 123/87
== END 2017-02-08 19:31 | disposition home or self-care (01) ==
LOC: EMR 18:47
DX: M54.5 Low back pain (principal); G89.29 Other chronic pain; G35 Multiple sclerosis; I25.10 Atherosclerotic heart disease of native coronary artery without angina pectoris; I10 Essential (primary) hypertension
CPT/HCPCS: 99283

== ENCOUNTER 2017-02-10 12:57 | Emergency (ER) | payer MEDICARE, OTHER ==
[2017-02-11] MEDS ORDERED: CATAPRES0.2 MG ORAL (11:22)
--- NOTE | 2017-02-11 21:28 | Emergency Room Report ---
History of Present Illness General Chief Complaint: To Be Triaged Present Illness Allergies: Coded Allergies: KETOROLAC (Verified Allergy, Severe, Anaphylaxis, 06/19/15) Nursing Documentation-PMH Hx Cardiac Problems: Yes - CAD Hx Hypertension: Yes Hx Asthma: No Hx COPD: No Hx Diabetes: No Hx Cancer: No Hx Gastrointestinal Problems: Yes Hx Dialysis: No Hx Neurological Problems: Yes - multiple sclerosis Hx Cerebrovascular Accident: Yes - TIA (2013) Hx Transient Ischemic Attacks: No Hx Dementia: No Hx Alzheimer's Disease: No Hx Parkinson's Disease: No Hx Meningitis: No Hx Encephalitis: No Hx Seizures: No Hx Epilepsy: No Hx Multiple Sclerosis: Yes Hx Cerebral Palsy: No Hx Amyotrophic Lat Sclerosis: No Hx Guillian-[place] Syndrome: No Hx Paralysis: No Hx Peripheral Neuropathy: No Hx Spinal Cord Injury: No Hx Head Trauma: No Hx Traumatic Brain Injury: No Hx Memory Loss: No Hx Concentration Difficulty: No Hx Speech Problem: No Hx Tremors: No Hx Vertigo: No Hx Dizziness: No Hx Syncope: Yes Hx Headaches: Yes - SOMETIMES Hx Aphasia: No Hx Dysphasia: No Hx Numbness: Yes - RIGHT HAND Hx Weakness: Yes - ALL OF THE BODY Hx Fatigue: Yes - SLIGHT Hx Neurologic Surgery: No Hx Brain Shunt: No Medical Decision Making Diagnostic Impression: Primary Impression: Patient left without being seen ER Course Patient left prior to triage or M.D. evaluation Status: unchanged Disposition: LEFT W/OUT BEING SEEN Condition: Unknown Referrals: BARBARA RAGLAND (PCP) RUFUS CHASE M.D. Feb 11, 2017 21:28
== END 2017-02-10 14:10 | disposition left against medical advice (07) ==
LOC: EMR 14:10
DX: M54.5 Low back pain (principal); Z53.21 Procedure and treatment not carried out due to patient leaving prior to being seen by health care provider
CPT/HCPCS: 99285

== ENCOUNTER 2017-02-10 20:27 | Emergency (ER) | payer MEDICARE, OTHER ==
--- NOTE | 2017-02-11 01:27 | Emergency Room Report ---
History of Present Illness General Chief Complaint: To Be Triaged Present Illness Allergies: Coded Allergies: KETOROLAC (Verified Allergy, Severe, Anaphylaxis, 06/19/15) Nursing Documentation-PMH Hx Cardiac Problems: Yes - CAD Hx Hypertension: Yes Hx Asthma: No Hx COPD: No Hx Diabetes: No Hx Cancer: No Hx Gastrointestinal Problems: Yes Hx Dialysis: No Hx Neurological Problems: Yes - multiple sclerosis Hx Cerebrovascular Accident: Yes - TIA (2013) Hx Transient Ischemic Attacks: No Hx Dementia: No Hx Alzheimer's Disease: No Hx Parkinson's Disease: No Hx Meningitis: No Hx Encephalitis: No Hx Seizures: No Hx Epilepsy: No Hx Multiple Sclerosis: Yes Hx Cerebral Palsy: No Hx Amyotrophic Lat Sclerosis: No Hx Guillian-[place] Syndrome: No Hx Paralysis: No Hx Peripheral Neuropathy: No Hx Spinal Cord Injury: No Hx Head Trauma: No Hx Traumatic Brain Injury: No Hx Memory Loss: No Hx Concentration Difficulty: No Hx Speech Problem: No Hx Tremors: No Hx Vertigo: No Hx Dizziness: No Hx Syncope: Yes Hx Headaches: Yes - SOMETIMES Hx Aphasia: No Hx Dysphasia: No Hx Numbness: Yes - RIGHT HAND Hx Weakness: Yes - ALL OF THE BODY Hx Fatigue: Yes - SLIGHT Hx Neurologic Surgery: No Hx Brain Shunt: No Medical Decision Making ER Course Patient left before I could see him Allegedly walked out from waiting room Was never in ED Status: improved Disposition: LEFT W/OUT BEING SEEN Referrals: NOT CHOSEN IPA/,REFERRING (PCP) DEBORA LAIRD M.D. Feb 11, 2017 01:27
[2017-02-11] MEDS ORDERED: CATAPRES0.2 MG ORAL (11:22)
== END 2017-02-10 21:50 | disposition left against medical advice (07) ==
LOC: EMR 21:50
DX: M54.5 Low back pain (principal); Z53.21 Procedure and treatment not carried out due to patient leaving prior to being seen by health care provider
CPT/HCPCS: 99285

== ENCOUNTER 2017-02-11 10:32 | Inpatient (IN) | payer MEDICARE, OTHER ==
[~2017-02-11] VITALS: Ht 182.9 cm; Wt 99.8 kg
[2017-02-11 11:00] VITALS: BP 139/95
[2017-02-11] MEDS ORDERED: CATAPRES0.2 MG ORAL (11:22)
--- NOTE | 2017-02-11 11:33 | Emergency Room Report ---
History of Present Illness General Chief Complaint: Chest Pain Source: Patient Present Illness HPI 51-year-old male with pmhx of HTN, opiate dependence, chronic back pain, p/w chest pain for and a. Chest pain started while driving. Localized to substernal area, no radiation to back or other areas, sharp in nature, gradual in onset, lasted 10 minute min, multiple intermittent episodes. Occurred on rest. Denies SOB. Denies palpitations, diaphoresis, n/v. This is the first occurrence of chest pain. Denies fever, chills, cough, abd pain. Denies trauma. Last stress test per chart records was in August 2016, nuclear stress test negative Patient has never had a cardiac catheterization. Denies smoking, no family history of cardiac disease at a young age. Allergies: Coded Allergies: KETOROLAC (Verified Allergy, Severe, Anaphylaxis, 06/19/15) Patient History Past Medical History: see triage record Past Surgical History: none Pertinent Family History: none Reviewed Nursing Documentation: PMH: Agreed, PSxH: Agreed Nursing Documentation-PMH Hx Hypertension: Yes Hx Asthma: No Hx COPD: No Hx Diabetes: No Hx Cancer: No Hx Gastrointestinal Problems: Yes Hx Dialysis: No Hx Neurological Problems: Yes - MS Hx Cerebrovascular Accident: Yes - TIA (2013) Hx Transient Ischemic Attacks: No Hx Dementia: No Hx Alzheimer's Disease: No Hx Parkinson's Disease: No Hx Meningitis: No Hx Encephalitis: No Hx Seizures: No Hx Epilepsy: No Hx Multiple Sclerosis: Yes Hx Cerebral Palsy: No Hx Amyotrophic Lat Sclerosis: No Hx Guillian-[place] Syndrome: No Hx Paralysis: No Hx Peripheral Neuropathy: No Hx Spinal Cord Injury: No Hx Head Trauma: No Hx Traumatic Brain Injury: No Hx Memory Loss: No Hx Concentration Difficulty: No Hx Speech Problem: No Hx Tremors: No Hx Vertigo: No Hx Dizziness: No Hx Syncope: Yes Hx Headaches: Yes - SOMETIMES Hx Aphasia: No Hx Dysphasia: No Hx Numbness: Yes - RIGHT HAND Hx Weakness: Yes - ALL OF THE BODY Hx Fatigue: Yes - SLIGHT Hx Neurologic Surgery: No Hx Brain Shunt: No Review of Systems All Other Systems: negative except mentioned in HPI Physical Exam Vital Signs Date Time Temp Pulse Resp B/P (MAP) Pulse Ox O2 Delivery O2 Flow Rate FiO2 02/11/17 10:48 98.8 69 16 150/95 100 Room Air Sp02 EP Interpretation: reviewed, normal General Appearance: normal inspection, well appearing, no apparent distress, alert, GCS 15, non-toxic Head: normocephalic, atraumatic Eyes: bilateral eye normal inspection, bilateral eye PERRL, bilateral eye EOMI ENT: normal ENT inspection, normal pharynx, normal voice, moist mucus membranes Neck: normal inspection, full range of motion, supple Respiratory: normal inspection, lungs clear, normal breath sounds, no respiratory distress, no retraction, no wheezing, speaking full sentences, chest symmetrical Cardiovascular #1: normal inspection, regular rate, rhythm, no edema, normal capillary refill Cardiovascular #2: 2+ radial (R), 2+ radial (L) Gastrointestinal: normal inspection, non tender, soft, non-distended, no guarding Genitourinary: no CVA tenderness Musculoskeletal: normal inspection, back normal, normal range of motion, non- tender Neurologic: normal inspection, alert, oriented x3, responsive, motor strength/ tone normal, sensory intact, normal gait, speech normal Psychiatric: normal inspection, judgement/insight normal, memory normal Skin: normal inspection, normal color, no rash, warm/dry, well hydrated, normal turgor Medical Decision Making Diagnostic Impression: Primary Impression: ACS (acute coronary syndrome) ER Course 51-year-old male presenting with chest pain DDX: ACS vs. CHF vs. pneumonia vs. gastritis/GERD vs. pneumothorax PE on differential however at this time there are other more likely diagnoses. Plan: IV access, obtain labs including troponin, EKG, CXR ASA not given as patient is allergic Anticipate admission ER course: Nitroglycerin given Labs- Troponin neg Patient has remained on a monitor, HD stable, chest pain improved. 162 asa given, pt took 162 at home Disposition: Patient requires admission for chest pain. Due to patient's history and comorbidities, patient has increased risk of acute cardiac event. Patient requires admission for further workup, serial troponin, and possible stress test/cath inpatient. Please note that this Emergency Department Report was dictated using [employer] Energyclinical education manager technology software, occasionally this can lead to erroneous entry secondary to interpretation by the dictation equipment. Chest X-ray CXR: Ordered: Yes 1 view Indication: Chest pain EP interpretation: Yes Interpretation: No consolidation, no effusion, no PTX, no acute cardiopulmonary disease Impression: No acute disease Electronically signed by Nena Hyatt MD Laboratory Tests Test 02/11/17 11:33 White Blood Count 4.7 K/UL (4.8-10.8) L Red Blood Count 4.72 M/UL (4.70-6.10) Hemoglobin 15.0 G/DL (14.2-18.0) Hematocrit 44.3 % (42.0-52.0) Mean Corpuscular Volume 94 FL (80-99) Mean Corpuscular Hemoglobin 31.7 PG (27.0-31.0) H Mean Corpuscular Hemoglobin Concent 33.8 G/DL (32.0-36.0) Red Cell Distribution Width 12.0 % (11.6-14.8) Platelet Count 182 K/UL (150-450) Mean Platelet Volume 7.8 FL (6.5-10.1) Neutrophils (%) (Auto) 53.5 % (45.0-75.0) Lymphocytes (%) (Auto) 31.9 % (20.0-45.0) Monocytes (%) (Auto) 10.8 % (1.0-10.0) H Eosinophils (%) (Auto) 2.2 % (0.0-3.0) Basophils (%) (Auto) 1.6 % (0.0-2.0) Sodium Level 135 MMOL/L (136-145) L Potassium Level 4.0 MMOL/L (3.5-5.1) Chloride Level 102 MMOL/L (98-107) Carbon Dioxide Level 28 MMOL/L (21-32) Anion Gap 5 (5-15) Blood Urea Nitrogen 23 mg/dL (7-18) H Creatinine 1.1 MG/DL (0.55-1.30) Estimate Glomerular Filtration Rate > 60 mL/min (>60) Glucose Level 116 MG/DL (74-106) H Calcium Level 9.3 MG/DL (8.5-10.1) Total Bilirubin 0.3 MG/DL (0.2-1.0) Aspartate Amino Transferase (AST) 20 U/L (15-37) Alanine Aminotransferase (ALT) 40 U/L (12-78) Alkaline Phosphatase 85 U/L (46-116) Total Creatine Kinase 127 U/L (26-308) Creatine Kinase MB 2.1 NG/ML (0.0-3.6) Creatine Kinase MB Relative Index 1.6 Troponin I 0.000 ng/mL (0.000-0.056) Pro-B-Type Natriuretic Peptide 22 (0-125) Total Protein 6.3 G/DL (6.4-8.2) L Albumin 3.4 G/DL (3.4-5.0) Globulin 2.9 g/dL EKG Diagnostic Results Rate: normal Rhythm: NSR ST Segments: no acute changes ASA given to the pt in ED: No Rhythm Strip Diag. Results EP Interpretation: yes Rate: 64 Rhythm: NSR, no PVC's, no ectopy Last Vital Signs Date Time Temp Pulse Resp B/P (MAP) Pulse Ox O2 Delivery O2 Flow Rate FiO2 02/11/17 10:48 98.8 69 16 150/95 100 Room Air Disposition: ADMITTED INPATIENT Condition: Serious Referrals: BARBARA RAGLAND (PCP) Nena Hyatt M.D. Feb 11, 2017 11:32
[2017-02-11] MEDS ORDERED: Nitroglycerin Subl 0.4mg tab SL PRN (11:45)
[2017-02-11 11:46] LABS: BASOPHILS % (AUTO) 1.6 % (0.0-2.0); EOSINOPHILS % (AUTO) 2.2 % (0.0-3.0); LYMPHOCYTES % (AUTO) 31.9 % (20.0-45.0); MEAN CORPUSCULAR HEMOGLOBIN 31.7 PG (27.0-31.0); MEAN CORPUSCULAR HGB CONC 33.8 G/DL (32.0-36.0); MEAN CORPUSCULAR VOLUME 94 FL (80-99); MEAN PLATELET VOLUME 7.8 FL (6.5-10.1); MONOCYTES % (AUTO) 10.8 % (1.0-10.0); NEUTROPHILS % (AUTO) 53.5 % (45.0-75.0); PLATELET COUNT 182 K/UL (150-450); RED BLOOD COUNT 4.72 M/UL (4.70-6.10); WHITE BLOOD COUNT 4.7 K/UL (4.8-10.8)
[2017-02-11 12:13] VITALS: BP 128/84
[2017-02-11 12:13] LABS: ALANINE AMINOTRANSFERASE 40 U/L (12-78); ANION GAP 5 (5-15); ASPARTATE AMINO TRANSFERASE 20 U/L (15-37); CARBON DIOXIDE 28 MMOL/L (21-32); CHLORIDE 102 MMOL/L (98-107); CKMB 2.1 NG/ML (0.0-3.6); SODIUM 135 MMOL/L (136-145); TOTAL PROTEIN 6.3 G/DL (6.4-8.2)
--- NOTE | 2017-02-11 12:22 | Diagnostic Imaging Report ---
Indication: Chest pain Technique: One view of the chest Comparison: 01/11/2017 Findings: Lungs and pleural spaces are clear. Heart size is normal. No significant change Impression: No acute process
[2017-02-11 12:24] LABS: CREATININE 1.1 MG/DL (0.55-1.30); GLOMERULAR FILTRATION RATE > 60 mL/min (>60)
[2017-02-11] MEDS ORDERED: HYDROmorphone 4mg tab ORAL PRN (12:30)
[2017-02-11 12:31] LABS: CALCIUM 9.3 MG/DL (8.5-10.1)
[2017-02-11] MEDS ORDERED: Aspirin Baby 81mg ORAL SCH (12:45)
[2017-02-11 13:40] VITALS: BP 137/100
--- NOTE | 2017-02-11 14:35 | Consultation ---
History of Present Illness General Date patient seen: Feb 11, 2017 Chief Complaint: Chest Pain Present Illness HPI 51-year-old male with pmhx of HTN, opiate dependence, chronic back pain, p/w chest pain started while driving. Localized to substernal area, no radiation to back or other areas, sharp in nature, gradual in onset, lasted 10 minute min , multiple intermittent episodes. Last stress test per chart records was in August 2016, nuclear stress test negative. Pt is admitted to telemetry for further evaluation. Allergies: Coded Allergies: KETOROLAC (Verified Allergy, Severe, Anaphylaxis, 06/19/15) Medication History Scheduled Acetaminophen* (Acetaminophen 325MG Tablet*), 650 MG ORAL Q4H PRN, (Reported) Amlodipine Besylate* (Amlodipine Besylate*), 10 MG ORAL DAILY, (Reported) Aspirin* (Aspir 81*), 81 MG ORAL DAILY, (Reported) Clonidine Hcl (Clonidine Hcl), 0.1 MG PO Q4HR PRN, (Reported) Clonidine Hcl* (Catapres*), 0.2 MG ORAL BID, (Reported) Duloxetine (Cymbalta), 40 MG ORAL DAILY, (Reported) Gabapentin (Neurontin), 300 MG ORAL THREE TIMES A DAY, (Reported) Hydralazine HCl (Hydralazine HCl), 50 MG ORAL BID, (Reported) Hydrochlorothiazide* (Hydrochlorothiazide*), 50 MG ORAL DAILY, (Reported) Labetalol HCl (Labetalol HCl), 400 MG ORAL EVERY 12 HOURS, (Reported) Metoprolol Succinate* (Metoprolol Succinate*), 100 MG ORAL BID, (Reported) Polyethylene Glycol 3350* (Miralax*), 17 GM ORAL DAILY PRN, (Reported) Prednisone* (Prednisone*), 20 MG ORAL DAILY, (Reported) Scheduled PRN Diphenhydramine Hcl* (Diphenhydramine Hcl*), 25 MG ORAL Q6H PRN for Itching, ( Reported) Hydromorphone HCl (Dilaudid), 4 MG ORAL Q3HR PRN PRN for Severe Pain (Pain Scale 7-10), (Reported) Zolpidem Tartrate* (Ambien*), 5 MG ORAL BEDTIME PRN for Insomnia, (Reported) Patient History Healthcare decision maker Resuscitation status Advanced Directive on File Past Medical/Surgical History Past Medical/Surgical History: (1) Narcotic dependence (2) Degenerative disc disease, cervical (3) Thalamic pain syndrome (4) Hypertension Review of Systems All Other Systems: negative except mentioned in HPI Physical Exam General Appearance: WD/WN, lethargic Lines, tubes and drains: peripheral, central line HEENT: normocephalic, atraumatic Neck: non-tender, normal alignment, limited range of motion Respiratory/Chest: lungs clear Cardiovascular/Chest: normal peripheral pulses Abdomen: normal bowel sounds, non tender Genitourinary/Rectal: normal genital exam, normal rectal exam Extremities: normal range of motion Lymphatic: anterior cervical Last 24 Hour Vital Signs Date Time Temp Pulse Resp B/P (MAP) Pulse Ox O2 Delivery O2 Flow Rate FiO2 02/11/17 13:40 96.3 70 18 137/100 100 Room Air 02/11/17 12:57 67 19 144/73 100 Room Air 02/11/17 12:16 74 16 Room Air 02/11/17 12:13 74 14 128/84 99 Room Air 02/11/17 12:06 134/98 02/11/17 10:48 98.8 69 16 150/95 100 Room Air Intake and Output 02/11/17 02/12/17 19:00 07:00 Intake Total 0 ml Balance 0 ml Intake Oral 0 ml Laboratory Tests Test 02/11/17 11:33 02/11/17 13:00 White Blood Count 4.7 K/UL (4.8-10.8) L Red Blood Count 4.72 M/UL (4.70-6.10) Hemoglobin 15.0 G/DL (14.2-18.0) Hematocrit 44.3 % (42.0-52.0) Mean Corpuscular Volume 94 FL (80-99) Mean Corpuscular Hemoglobin 31.7 PG (27.0-31.0) H Mean Corpuscular Hemoglobin Concent 33.8 G/DL (32.0-36.0) Red Cell Distribution Width 12.0 % (11.6-14.8) Platelet Count 182 K/UL (150-450) Mean Platelet Volume 7.8 FL (6.5-10.1) Neutrophils (%) (Auto) 53.5 % (45.0-75.0) Lymphocytes (%) (Auto) 31.9 % (20.0-45.0) Monocytes (%) (Auto) 10.8 % (1.0-10.0) H Eosinophils (%) (Auto) 2.2 % (0.0-3.0) Basophils (%) (Auto) 1.6 % (0.0-2.0) Sodium Level 135 MMOL/L (136-145) L Potassium Level 4.0 MMOL/L (3.5-5.1) Chloride Level 102 MMOL/L (98-107) Carbon Dioxide Level 28 MMOL/L (21-32) Anion Gap 5 (5-15) Blood Urea Nitrogen 23 mg/dL (7-18) H Creatinine 1.1 MG/DL (0.55-1.30) Estimat Glomerular Filtration Rate > 60 mL/min (>60) Glucose Level 116 MG/DL (74-106) H Calcium Level 9.3 MG/DL (8.5-10.1) Total Bilirubin 0.3 MG/DL (0.2-1.0) Aspartate Amino Transf (AST/SGOT) 20 U/L (15-37) Alanine Aminotransferase (ALT/SGPT) 40 U/L (12-78) Alkaline Phosphatase 85 U/L (46-116) Total Creatine Kinase 127 U/L (26-308) Creatine Kinase MB 2.1 NG/ML (0.0-3.6) Creatine Kinase MB Relative Index 1.6 Troponin I 0.000 ng/mL (0.000-0.056) Pro-B-Type Natriuretic Peptide 22 (0-125) Total Protein 6.3 G/DL (6.4-8.2) L Albumin 3.4 G/DL (3.4-5.0) Globulin 2.9 g/dL Urine Opiates Screen Positive (NEGATIVE) H Urine Barbiturates Screen Negative (NEGATIVE) Phencyclidine (PCP) Screen Negative (NEGATIVE) Urine Amphetamines Screen Negative (NEGATIVE) Urine Benzodiazepines Screen Negative (NEGATIVE) Urine Cocaine Screen Negative (NEGATIVE) Urine Marijuana (THC) Screen Negative (NEGATIVE) Height (Feet): 6 Weight (Pounds): 220 Medications Current Medications Medications (Trade) Dose Ordered Sig/Jessica Route PRN Reason Start Time Stop Time Status Last Admin Dose Admin Amlodipine Besylate (Norvasc) 10 mg DAILY ORAL 02/12/17 09:00 03/14/17 08:59 Clonidine HCl (Catapres) 0.1 mg Q8H PRN ORAL SBP greater than 160 02/11/17 13:30 03/13/17 13:29 Diphenhydramine HCl (Benadryl) 25 mg Q6H PRN IVP Itching 02/11/17 14:30 03/13/17 14:29 Duloxetine HCl (Cymbalta) 40 mg DAILY ORAL 02/12/17 09:00 03/14/17 08:59 Gabapentin (Neurontin) 300 mg THREE TIMES A DAY ORAL 02/11/17 14:00 03/13/17 13:59 02/11/17 14:23 Heparin Sodium (Porcine) (Heparin 5000 units/ml) 5,000 units EVERY 12 HOURS SUBQ 02/11/17 21:00 03/13/17 20:59 Hydralazine HCl (Apresoline) 50 mg Q12HR ORAL 02/11/17 21:00 03/13/17 20:59 Hydromorphone HCl (Dilaudid) 2 mg Q4H PRN IM Severe Pain (Pain Scale 7-10) 02/11/17 18:00 02/18/17 17:59 UNV Metoprolol Tartrate (Lopressor) 100 mg Q12HR ORAL 02/11/17 21:00 03/13/17 20:59 Assessment/Plan Problem List: (1) ACS (acute coronary syndrome) ICD Codes: I20.0 - Unstable angina SNOMED: 772793218 (2) Degenerative disc disease, cervical ICD Codes: M50.30 - Degenerative disc disease, cervical SNOMED: 03812569 (3) Thalamic pain syndrome ICD Codes: G89.0 - Thalamic pain syndrome SNOMED: 604709586 (4) Hypertension ICD Codes: I10 - Essential (primary) hypertension SNOMED: 97978653 Assessment/Plan serial ekg, troponin cardiology to see symptomatic treatment JOSHUA HARRIS Feb 11, 2017 14:35
--- NOTE | 2017-02-11 14:46 | General Progress Note ---
Assessment/Plan Assessment/Plan (1) Multiple Sclerosis (2) Neuropathic pain (3) Cervical DDD (4) Cervical spondylosis (5) Lumbar DDD (6) Lumbar spondylosis (7) Narcotic Dependency Patient will be continued on the Dilaudid 2mg subQ Q4H PRN. Pt was d/w Dr. Scott and he concurred. Thank you for the courtesy of this consultation. Subjective Date patient seen: Feb 11, 2017 Time patient seen: 01:30 - pm Allergies: Coded Allergies: KETOROLAC (Verified Allergy, Severe, Anaphylaxis, 06/19/15) Subjective Constitutional: Reports: weakness, Denies: chills, diaphoresis, fever, malaise , no symptoms, other HEENT: Denies: blurred vision, double vision, ear discharge, ear pain, eye pain , mouth pain, mouth swelling, no symptoms, nose congestion, nose pain, other, tearing, throat pain, throat swelling Cardiovascular: Reports: chest pain Denies: edema, irregular heart rate, lightheadedness, no symptoms, other, palpitations, syncope Respiratory: Denies: SOB at rest, SOB with excertion, cough, no symptoms, orthopnea, other, shortness of breath, sputum, stridor, wheezing Gastrointestinal/Abdominal: Denies: abdomen distended, abdominal pain, black stools, blood in stool, constipated, diarrhea, difficulty swallowing, nausea, no symptoms, other, poor appetite, poor fluid intake, rectal bleeding, tarry stools, vomiting Genitourinary: Denies: burning, discharge, flank pain, frequency, hematuria, incontinence, no symptoms, other, pain, urgency Neurologic/Psychiatric: Reports: weakness, Denies: anxiety, depressed, emotional problems, headache, no symptoms, numbness, other, paresthesia, pre- existing deficit, seizure, tingling, tremors Endocrine: Denies: excessive sweating, flushing, increased hunger, increased thirst, increased urine, intolerance to cold, intolerance to heat, no symptoms, other, unexplained weight gain, unexplained weight loss Hematologic/Lymphatic: Denies: anemia, easy bleeding, easy bruising, no symptoms, other Subjective Patient is a known patient admitted under the care of Dr. Hoffman due to chest pain. He has continued generalized body pain caused by MS, neck and low back pain. we were consulted so patient would have adequate pain control while here in the hospital . Objective Last 24 Hour Vital Signs Date Time Temp Pulse Resp B/P (MAP) Pulse Ox O2 Delivery O2 Flow Rate FiO2 02/11/17 13:40 96.3 70 18 137/100 100 Room Air 02/11/17 12:57 67 19 144/73 100 Room Air 02/11/17 12:16 74 16 Room Air 02/11/17 12:13 74 14 128/84 99 Room Air 02/11/17 12:06 134/98 02/11/17 10:48 98.8 69 16 150/95 100 Room Air Intake and Output 02/11/17 02/12/17 19:00 07:00 Intake Total 0 ml Balance 0 ml Intake Oral 0 ml Laboratory Tests 02/11/17 11:33: White Blood Count 4.7L, Red Blood Count 4.72, Hemoglobin 15.0, Hematocrit 44.3, Mean Corpuscular Volume 94, Mean Corpuscular Hemoglobin 31.7H, Mean Corpuscular Hemoglobin Concent 33.8, Red Cell Distribution Width 12.0, Platelet Count 182, Mean Platelet Volume 7.8, Neutrophils (%) (Auto) 53.5, Lymphocytes (%) (Auto) 31.9, Monocytes (%) (Auto) 10.8H, Eosinophils (%) (Auto) 2.2, Basophils (%) ( Auto) 1.6, Sodium Level 135L, Potassium Level 4.0, Chloride Level 102, Carbon Dioxide Level 28, Anion Gap 5, Blood Urea Nitrogen 23H, Creatinine 1.1, Estimat Glomerular Filtration Rate > 60, Glucose Level 116H, Calcium Level 9.3, Total Bilirubin 0.3, Aspartate Amino Transf (AST/SGOT) 20, Alanine Aminotransferase ( ALT/SGPT) 40, Alkaline Phosphatase 85, Total Creatine Kinase 127, Creatine Kinase MB 2.1, Creatine Kinase MB Relative Index 1.6, Troponin I 0.000, Pro-B- Type Natriuretic Peptide 22, Total Protein 6.3L, Albumin 3.4, Globulin 2.9 02/11/17 13:00: Urine Opiates Screen PositiveH, Urine Barbiturates Screen Negative, Phencyclidine (PCP) Screen Negative, Urine Amphetamines Screen Negative, Urine Benzodiazepines Screen Negative, Urine Cocaine Screen Negative, Urine Marijuana (THC) Screen Negative Height (Feet): 6 Weight (Pounds): 220 Objective General Appearance: no apparent distress, alert EENT: PERRL/EOMI, normal ENT inspection Neck: non-tender, normal alignment Cardiovascular: normal peripheral pulses, normal rate, regular rhythm Respiratory/Chest: lungs clear, normal breath sounds Abdomen: non tender, soft Extremities: non-tender Edema: no edema noted Arm (L), no edema noted Arm (R), no edema noted Leg (L), no edema noted Leg (R), no edema noted Pedal (L), no edema noted Pedal (R), no edema noted Generalized Neurologic: alert, oriented x 3 Skin: warm/dry MAYCOL WILEY Feb 11, 2017 14:46
[2017-02-11] MEDS: DiphenhydrAMINE 50mg/ml Inj IVP PRN ×2 (14:50→22:35)
[2017-02-11 15:48] VITALS: BP 146/101
[2017-02-11 19:00] VITALS: BP 138/89
[2017-02-11 20:00] VITALS: BP 138/89
[2017-02-11] MEDS: HydrALAZINE 50mg tab ORAL SCH (20:48)
[2017-02-11] MEDS: Heparin 5000 units/ml inj SUBQ SCH (20:50)
[2017-02-11] MEDS ORDERED: Labetalol 200mg tab ORAL SCH (21:00)
--- NOTE | 2017-02-11 21:46 | History and Physical Report ---
DATE OF ADMISSION: 02/11/2017 TIME SEEN: At 3 p.m. ATTENDING PHYSICIAN: Dennis Hoffman D.O. CONSULTANTS: 1. Dayo Conrad M.D. 2. Joni Mena M.D. 3. Gricelda Granda M.D. 4. Jassi Scott M.D. CHIEF COMPLAINT: Chest pain, chronic pain, and MS. BRIEF HISTORY: The patient is a 51-year-old male who lives at home with history of chronic pain due to MS. Yesterday, he had slight chest pain, substernal, sharp, radiation to the right. No loss of consciousness. No shortness of breath. The patient was slightly anxious, came to [facility] today with still continuing and diagnosed with chest pain and low back pain and chronic pain, and admitted to telemetry for further care. Currently slightly anxious in bed. Feeling little better. No complaints. PAST MEDICAL HISTORY: Hypertension, MS, and chronic pain. PAST SURGICAL HISTORY: None. ALLERGIES: Ketoralac. MEDICATIONS: Norvasc, Cymbalta, Apresoline, Lopressor, heparin, Dilaudid, Benadryl, Neurontin, and Catapres. SOCIAL HISTORY: No smoking. No alcohol. No intravenous drug use. FAMILY HISTORY: Noncontributory. REVIEW OF SYSTEMS: Slight chest pain. Slight short of breath. No nausea or vomiting. PHYSICAL EXAMINATION: GENERAL: Slightly anxious in bed, oriented x3, in no acute distress. VITAL SIGNS: Temperature 96 degrees, pulse 70, respirations 18, and blood pressure 137/100. CARDIOVASCULAR: No murmur. LUNGS: Clear. ABDOMEN: Bowel sounds positive. Nontender and nondistended. EXTREMITIES: No cyanosis, clubbing, or edema. NEUROLOGICAL: The patient moves all extremities, but slightly weak. LABORATORY DATA: Lab exam showed CBC is normal. BMP showed sodium 135, BUN 23, and glucose 115. Troponin is 0.00. Last BMP is normal. Urine toxicology is positive for opiates. ASSESSMENT: 1. Chest pain. 2. Chronic pain. 3. Low back pain. 4. Depression. 5. Hypertension. 6. Multiple sclerosis. PLAN: 1. OT/PT. 2. Dietary evaluation. 3. Pain and blood pressure control. 4. Psych treatment. 5. Resume home medications. 6. Dr. Conrad, Dr. Mena, Dr. Granda, and Dr. Scott to consult. We will continue to follow this patient. Dennis Hoffman D.O. DR: KYLE JOB#: [id number] CC:
[2017-02-12] VITALS: BP 136/88
[2017-02-12 04:00] VITALS: BP 145/107
[2017-02-12] MEDS: DiphenhydrAMINE 50mg/ml Inj IVP PRN ×3 (04:46→18:38)
--- NOTE | 2017-02-12 07:33 | Cardiology Progress Note ---
Assessment/Plan Assessment/Plan The patient is seen and examined, full consult note will be dictated. Objective Last 24 Hour Vital Signs Date Time Temp Pulse Resp B/P (MAP) Pulse Ox O2 Delivery O2 Flow Rate FiO2 02/12/17 04:00 97.2 80 21 145/107 97 Room Air 02/12/17 04:00 87 02/12/17 00:00 77 02/12/17 00:00 97.5 77 21 136/88 95 Room Air 02/11/17 20:48 83 138/89 02/11/17 20:48 138/89 02/11/17 20:00 97.8 83 22 138/89 96 Room Air 02/11/17 20:00 86 02/11/17 19:00 97.8 83 22 138/89 96 Room Air 02/11/17 16:00 83 02/11/17 15:48 97.0 80 18 146/101 97 Room Air 02/11/17 13:40 96.3 70 18 137/100 100 Room Air 02/11/17 12:57 67 19 144/73 100 Room Air 02/11/17 12:16 74 16 Room Air 02/11/17 12:13 74 14 128/84 99 Room Air 02/11/17 12:06 134/98 02/11/17 11:00 70 13 Room Air 02/11/17 11:00 98.3 70 13 139/95 97 Room Air 02/11/17 10:48 98.8 69 16 150/95 100 Room Air Laboratory Tests Test 02/11/17 11:33 02/11/17 13:00 02/12/17 03:00 White Blood Count 4.7 K/UL (4.8-10.8) L Pending Red Blood Count 4.72 M/UL (4.70-6.10) Pending Hemoglobin 15.0 G/DL (14.2-18.0) Pending Hematocrit 44.3 % (42.0-52.0) Pending Mean Corpuscular Volume 94 FL (80-99) Pending Mean Corpuscular Hemoglobin 31.7 PG (27.0-31.0) H Pending Mean Corpuscular Hemoglobin Concent 33.8 G/DL (32.0-36.0) Pending Red Cell Distribution Width 12.0 % (11.6-14.8) Pending Platelet Count 182 K/UL (150-450) Pending Mean Platelet Volume 7.8 FL (6.5-10.1) Pending Neutrophils (%) (Auto) 53.5 % (45.0-75.0) Pending Lymphocytes (%) (Auto) 31.9 % (20.0-45.0) Pending Monocytes (%) (Auto) 10.8 % (1.0-10.0) H Pending Eosinophils (%) (Auto) 2.2 % (0.0-3.0) Pending Basophils (%) (Auto) 1.6 % (0.0-2.0) Pending Sodium Level 135 MMOL/L (136-145) L Pending Potassium Level 4.0 MMOL/L (3.5-5.1) Pending Chloride Level 102 MMOL/L (98-107) Pending Carbon Dioxide Level 28 MMOL/L (21-32) Pending Anion Gap 5 (5-15) Blood Urea Nitrogen 23 mg/dL (7-18) H Pending Creatinine 1.1 MG/DL (0.55-1.30) Pending Estimat Glomerular Filtration Rate > 60 mL/min (>60) Pending Glucose Level 116 MG/DL (74-106) H Pending Calcium Level 9.3 MG/DL (8.5-10.1) Pending Total Bilirubin 0.3 MG/DL (0.2-1.0) Aspartate Amino Transf (AST/SGOT) 20 U/L (15-37) Alanine Aminotransferase (ALT/SGPT) 40 U/L (12-78) Alkaline Phosphatase 85 U/L (46-116) Total Creatine Kinase 127 U/L (26-308) Creatine Kinase MB 2.1 NG/ML (0.0-3.6) Creatine Kinase MB Relative Index 1.6 Troponin I 0.000 ng/mL (0.000-0.056) Pro-B-Type Natriuretic Peptide 22 (0-125) Total Protein 6.3 G/DL (6.4-8.2) L Albumin 3.4 G/DL (3.4-5.0) Globulin 2.9 g/dL Urine Opiates Screen Positive (NEGATIVE) H Urine Barbiturates Screen Negative (NEGATIVE) Phencyclidine (PCP) Screen Negative (NEGATIVE) Urine Amphetamines Screen Negative (NEGATIVE) Urine Benzodiazepines Screen Negative (NEGATIVE) Urine Cocaine Screen Negative (NEGATIVE) Urine Marijuana (THC) Screen Negative (NEGATIVE) ELIANA MCGRATH Feb 12, 2017 07:33
[2017-02-12] MEDS: HydrALAZINE 50mg tab ORAL SCH ×2 (08:30→20:59)
[2017-02-12] MEDS: Heparin 5000 units/ml inj SUBQ SCH ×2 (08:34→21:01)
[2017-02-12 08:48] VITALS: BP 140/79
[2017-02-12 08:57] LABS: BASOPHILS % (AUTO) 1.3 % (0.0-2.0); EOSINOPHILS % (AUTO) 3.1 % (0.0-3.0); LYMPHOCYTES % (AUTO) 42.1 % (20.0-45.0); MEAN CORPUSCULAR HEMOGLOBIN 31.7 PG (27.0-31.0); MEAN CORPUSCULAR HGB CONC 33.5 G/DL (32.0-36.0); MEAN CORPUSCULAR VOLUME 95 FL (80-99); MEAN PLATELET VOLUME 7.7 FL (6.5-10.1); MONOCYTES % (AUTO) 11.1 % (1.0-10.0); NEUTROPHILS % (AUTO) 42.5 % (45.0-75.0); PLATELET COUNT 184 K/UL (150-450); RED BLOOD COUNT 4.86 M/UL (4.70-6.10); RED CELL DISTRIBUTION WIDTH 12.1 % (11.6-14.8); WHITE BLOOD COUNT 5.4 K/UL (4.8-10.8)
[2017-02-12] MEDS ORDERED: Dyazide 18.75/12.5mg tab ORAL SCH (09:00)
[2017-02-12 09:24] LABS: ANION GAP 8 (5-15); CARBON DIOXIDE 27 MMOL/L (21-32); CHLORIDE 99 MMOL/L (98-107); CREATININE 1.2 MG/DL (0.55-1.30); GLOMERULAR FILTRATION RATE > 60 mL/min (>60); POTASSIUM 3.8 MMOL/L (3.5-5.1); SODIUM 134 MMOL/L (136-145)
[2017-02-12 11:59] VITALS: BP 131/65
--- NOTE | 2017-02-12 15:02 | General Progress Note ---
Assessment/Plan Assessment/Plan (1) Multiple Sclerosis (2) Neuropathic pain (3) Cervical DDD (4) Cervical spondylosis (5) Lumbar DDD (6) Lumbar spondylosis (7) Narcotic Dependency Patient will be continued on the Dilaudid. Rx for Dilaudid written for patient in anticipation for discharge. Pt was d/w Dr. Scott and he concurred. Subjective Date patient seen: Feb 12, 2017 Time patient seen: 02:00 - pm Allergies: Coded Allergies: KETOROLAC (Verified Allergy, Severe, Anaphylaxis, 06/19/15) Subjective Constitutional: Reports: weakness, Denies: chills, diaphoresis, fever, malaise , no symptoms, other HEENT: Denies: blurred vision, double vision, ear discharge, ear pain, eye pain , mouth pain, mouth swelling, no symptoms, nose congestion, nose pain, other, tearing, throat pain, throat swelling Cardiovascular: Reports: chest pain Denies: edema, irregular heart rate, lightheadedness, no symptoms, other, palpitations, syncope Respiratory: Denies: SOB at rest, SOB with excertion, cough, no symptoms, orthopnea, other, shortness of breath, sputum, stridor, wheezing Gastrointestinal/Abdominal: Denies: abdomen distended, abdominal pain, black stools, blood in stool, constipated, diarrhea, difficulty swallowing, nausea, no symptoms, other, poor appetite, poor fluid intake, rectal bleeding, tarry stools, vomiting Genitourinary: Denies: burning, discharge, flank pain, frequency, hematuria, incontinence, no symptoms, other, pain, urgency Neurologic/Psychiatric: Reports: weakness, Denies: anxiety, depressed, emotional problems, headache, no symptoms, numbness, other, paresthesia, pre- existing deficit, seizure, tingling, tremors Endocrine: Denies: excessive sweating, flushing, increased hunger, increased thirst, increased urine, intolerance to cold, intolerance to heat, no symptoms, other, unexplained weight gain, unexplained weight loss Hematologic/Lymphatic: Denies: anemia, easy bleeding, easy bruising, no symptoms, other Subjective Patient is laying in bed continues to c/o pain however reports that the Dilaudid has been helping to reduce his pain and is looking to be discharge home once discharged by alteration worker. Objective Last 24 Hour Vital Signs Date Time Temp Pulse Resp B/P (MAP) Pulse Ox O2 Delivery O2 Flow Rate FiO2 02/12/17 12:00 73 02/12/17 11:59 97.5 86 18 131/65 95 Room Air 02/12/17 08:48 97.2 87 18 140/79 95 Room Air 02/12/17 08:30 140/79 02/12/17 08:29 87 140/79 02/12/17 08:29 87 140/79 02/12/17 08:00 85 02/12/17 04:00 97.2 80 21 145/107 97 Room Air 02/12/17 04:00 87 02/12/17 00:00 77 02/12/17 00:00 97.5 77 21 136/88 95 Room Air 02/11/17 20:48 83 138/89 02/11/17 20:48 138/89 02/11/17 20:00 97.8 83 22 138/89 96 Room Air 02/11/17 20:00 86 02/11/17 19:00 97.8 83 22 138/89 96 Room Air 02/11/17 16:00 83 02/11/17 15:48 97.0 80 18 146/101 97 Room Air Intake and Output 02/12/17 02/13/17 19:00 07:00 Intake Total 480 ml Balance 480 ml Intake Oral 480 ml # Voids 2 Laboratory Tests 02/12/17 08:35: White Blood Count 5.4, Red Blood Count 4.86, Hemoglobin 15.4, Hematocrit 45.9, Mean Corpuscular Volume 95, Mean Corpuscular Hemoglobin 31.7H, Mean Corpuscular Hemoglobin Concent 33.5, Red Cell Distribution Width 12.1, Platelet Count 184, Mean Platelet Volume 7.7, Neutrophils (%) (Auto) 42.5L, Lymphocytes (%) (Auto) 42.1, Monocytes (%) (Auto) 11.1H, Eosinophils (%) (Auto) 3.1H, Basophils (%) ( Auto) 1.3, Sodium Level 134L, Potassium Level 3.8, Chloride Level 99, Carbon Dioxide Level 27, Anion Gap 8, Blood Urea Nitrogen 17, Creatinine 1.2, Estimat Glomerular Filtration Rate > 60, Glucose Level 192H, Calcium Level 9.0 Height (Feet): 6 Height (Inches): 0.00 Weight (Pounds): 220 Objective General Appearance: no apparent distress, alert EENT: PERRL/EOMI, normal ENT inspection Neck: non-tender, normal alignment Cardiovascular: normal peripheral pulses, normal rate, regular rhythm Respiratory/Chest: lungs clear, normal breath sounds Abdomen: non tender, soft Extremities: non-tender Edema: no edema noted Arm (L), no edema noted Arm (R), no edema noted Leg (L), no edema noted Leg (R), no edema noted Pedal (L), no edema noted Pedal (R), no edema noted Generalized Neurologic: alert, oriented x 3 Skin: warm/dry MAYCOL WILEY Feb 12, 2017 15:02
--- NOTE | 2017-02-12 15:04 | Pulmonology Progress Note ---
Assessment/Plan Problems: (1) ACS (acute coronary syndrome) (2) Degenerative disc disease, cervical (3) Thalamic pain syndrome (4) Hypertension Assessment/Plan all reviewed chest pain much better watch BP f/u cardiology recommendations Subjective ROS Limited/Unobtainable: No Constitutional: Reports: no symptoms HEENT: Repors: no symptoms Respiratory: Reports: no symptoms Allergies: Coded Allergies: KETOROLAC (Verified Allergy, Severe, Anaphylaxis, 06/19/15) Objective Last 24 Hour Vital Signs Date Time Temp Pulse Resp B/P (MAP) Pulse Ox O2 Delivery O2 Flow Rate FiO2 02/12/17 12:00 73 02/12/17 11:59 97.5 86 18 131/65 95 Room Air 02/12/17 08:48 97.2 87 18 140/79 95 Room Air 02/12/17 08:30 140/79 02/12/17 08:29 87 140/79 02/12/17 08:29 87 140/79 02/12/17 08:00 85 02/12/17 04:00 97.2 80 21 145/107 97 Room Air 02/12/17 04:00 87 02/12/17 00:00 77 02/12/17 00:00 97.5 77 21 136/88 95 Room Air 02/11/17 20:48 83 138/89 02/11/17 20:48 138/89 02/11/17 20:00 97.8 83 22 138/89 96 Room Air 02/11/17 20:00 86 02/11/17 19:00 97.8 83 22 138/89 96 Room Air 02/11/17 16:00 83 02/11/17 15:48 97.0 80 18 146/101 97 Room Air Intake and Output 02/12/17 02/13/17 19:00 07:00 Intake Total 480 ml Balance 480 ml Intake Oral 480 ml # Voids 2 General Appearance: WD/WN HEENT: normocephalic, anicteric Respiratory/Chest: chest wall non-tender, lungs clear Cardiovascular: normal peripheral pulses, normal rate Abdomen: normal bowel sounds, soft, non tender Extremities: no cyanosis Skin: no rash Laboratory Tests 02/12/17 08:35: White Blood Count 5.4, Red Blood Count 4.86, Hemoglobin 15.4, Hematocrit 45.9, Mean Corpuscular Volume 95, Mean Corpuscular Hemoglobin 31.7H, Mean Corpuscular Hemoglobin Concent 33.5, Red Cell Distribution Width 12.1, Platelet Count 184, Mean Platelet Volume 7.7, Neutrophils (%) (Auto) 42.5L, Lymphocytes (%) (Auto) 42.1, Monocytes (%) (Auto) 11.1H, Eosinophils (%) (Auto) 3.1H, Basophils (%) ( Auto) 1.3, Sodium Level 134L, Potassium Level 3.8, Chloride Level 99, Carbon Dioxide Level 27, Anion Gap 8, Blood Urea Nitrogen 17, Creatinine 1.2, Estimat Glomerular Filtration Rate > 60, Glucose Level 192H, Calcium Level 9.0 Current Medications Medications (Trade) Dose Ordered Sig/Jessica Route PRN Reason Start Time Stop Time Status Last Admin Dose Admin Amlodipine Besylate (Norvasc) 10 mg DAILY ORAL 02/12/17 09:00 03/14/17 08:59 02/12/17 08:29 Clonidine HCl (Catapres) 0.1 mg Q8H PRN ORAL SBP greater than 160 02/11/17 13:30 03/13/17 13:29 Diphenhydramine HCl (Benadryl) 25 mg Q6H PRN IVP Itching 02/11/17 14:30 03/13/17 14:29 02/12/17 11:07 Duloxetine HCl (Cymbalta) 40 mg DAILY ORAL 02/12/17 09:00 03/14/17 08:59 02/12/17 08:29 Gabapentin (Neurontin) 300 mg THREE TIMES A DAY ORAL 02/11/17 14:00 03/13/17 13:59 02/12/17 12:34 Heparin Sodium (Porcine) (Heparin 5000 units/ml) 5,000 units EVERY 12 HOURS SUBQ 02/11/17 21:00 03/13/17 20:59 02/12/17 08:34 Hydralazine HCl (Apresoline) 50 mg Q12HR ORAL 02/11/17 21:00 03/13/17 20:59 02/12/17 08:30 Hydromorphone HCl (Dilaudid) 2 mg Q4H PRN IM Severe Pain (Pain Scale 7-10) 02/11/17 14:45 02/18/17 14:44 02/12/17 11:07 Metoprolol Tartrate (Lopressor) 100 mg Q12HR ORAL 02/11/17 21:00 03/13/17 20:59 02/12/17 08:29 Triamterene/HCTZ (Dyazide) 1 tab DAILY ORAL 02/12/17 09:00 03/14/17 08:59 JOSHUA WOO Feb 12, 2017 15:04
--- NOTE | 2017-02-12 15:06 | General Progress Note ---
Assessment/Plan Problem List: (1) Opiate dependence ICD Codes: F11.20 - Opioid dependence, uncomplicated SNOMED: 55633861 (2) Chest pain ICD Codes: R07.9 - Chest pain, unspecified SNOMED: 76346526 (3) Back sprain (4) Neuropathic pain ICD Codes: M79.2 - Neuropathic pain SNOMED: 985630809 (5) Anxiety disorder ICD Codes: F41.9 - Anxiety disorder SNOMED: 486334681 (6) HTN (hypertension) ICD Codes: I10 - Essential (primary) hypertension SNOMED: 17898299 (7) Multiple sclerosis, secondary progressive ICD Codes: G35 - Multiple sclerosis, secondary progressive SNOMED: 600951482 Status: stable, progressing, tolerating diet Assessment/Plan ot pt diet pain control bp control cbc bmp am Subjective Constitutional: Reports: weakness Allergies: Coded Allergies: KETOROLAC (Verified Allergy, Severe, Anaphylaxis, 06/19/15) All Systems: reviewed and negative except above Subjective c/o sl lbp Objective Last 24 Hour Vital Signs Date Time Temp Pulse Resp B/P (MAP) Pulse Ox O2 Delivery O2 Flow Rate FiO2 02/12/17 12:00 73 02/12/17 11:59 97.5 86 18 131/65 95 Room Air 02/12/17 08:48 97.2 87 18 140/79 95 Room Air 02/12/17 08:30 140/79 02/12/17 08:29 87 140/79 02/12/17 08:29 87 140/79 02/12/17 08:00 85 02/12/17 04:00 97.2 80 21 145/107 97 Room Air 02/12/17 04:00 87 02/12/17 00:00 77 02/12/17 00:00 97.5 77 21 136/88 95 Room Air 02/11/17 20:48 83 138/89 02/11/17 20:48 138/89 02/11/17 20:00 97.8 83 22 138/89 96 Room Air 02/11/17 20:00 86 02/11/17 19:00 97.8 83 22 138/89 96 Room Air 02/11/17 16:00 83 02/11/17 15:48 97.0 80 18 146/101 97 Room Air Intake and Output 02/12/17 02/13/17 19:00 07:00 Intake Total 480 ml Balance 480 ml Intake Oral 480 ml # Voids 2 Laboratory Tests 02/12/17 08:35: White Blood Count 5.4, Red Blood Count 4.86, Hemoglobin 15.4, Hematocrit 45.9, Mean Corpuscular Volume 95, Mean Corpuscular Hemoglobin 31.7H, Mean Corpuscular Hemoglobin Concent 33.5, Red Cell Distribution Width 12.1, Platelet Count 184, Mean Platelet Volume 7.7, Neutrophils (%) (Auto) 42.5L, Lymphocytes (%) (Auto) 42.1, Monocytes (%) (Auto) 11.1H, Eosinophils (%) (Auto) 3.1H, Basophils (%) ( Auto) 1.3, Sodium Level 134L, Potassium Level 3.8, Chloride Level 99, Carbon Dioxide Level 27, Anion Gap 8, Blood Urea Nitrogen 17, Creatinine 1.2, Estimat Glomerular Filtration Rate > 60, Glucose Level 192H, Calcium Level 9.0 Height (Feet): 6 Height (Inches): 0.00 Weight (Pounds): 220 General Appearance: alert EENT: normal ENT inspection Neck: normal alignment Cardiovascular: normal peripheral pulses, normal rate, regular rhythm Respiratory/Chest: chest wall non-tender, lungs clear, normal breath sounds Abdomen: normal bowel sounds, non tender, soft Extremities: normal inspection Edema: no edema noted Arm (L), no edema noted Arm (R), no edema noted Leg (L), no edema noted Leg (R), no edema noted Pedal (L), no edema noted Pedal (R), no edema noted Generalized Neurologic: responsive, motor weakness Skin: normal pigmentation, warm/dry BARBARA RAGLAND Feb 12, 2017 15:06
[2017-02-12] MEDS ORDERED: Zolpidem 5mg tab ORAL PRN (15:45)
[2017-02-12 16:26] VITALS: BP 153/96
--- NOTE | 2017-02-12 16:45 | Consultation ---
DATE OF CONSULTATION: 02/12/2017 dCARDIOLOGY CONSULTATION REFERRING PHYSICIAN: Dennis Hoffman D.O. REASON FOR CONSULTATION: Management of chest pain. HISTORY OF PRESENT ILLNESS: The patient is a very pleasant 51-year-old gentleman, who presents to the hospital for evaluation of chest pain. Chest pain occurred while he was driving. At once, he felt a sharp pain in the upper midsternal and upper left precordial area which was radiating down to the right side of the chest below the right breast. The pain lasted just about 20 seconds. This happened again and he decided to come into the hospital. He did not have any associated shortness of breath, nausea, vomiting, or diaphoresis. On arrival to the emergency department, a 12-lead electrocardiogram showed no evidence of ST and T-wave abnormalities. Review of the old records showed that in August 2016, he had a nuclear stress test, which was nonischemic. A 2D echocardiography was also significant for normal LV systolic function with normal LV wall motion with LVEF approximately 60% to 65%. There was however evidence of mild left ventricular hypertrophy. PAST MEDICAL HISTORY: Includes hypertension, multiple sclerosis, history of anxiety, history of depression, and history of lumbar spondylosis. LIST OF MEDICATIONS: Include acetaminophen 650 mg q.4 h. p.r.n. pain, amlodipine 10 mg p.o. daily, aspirin 81 mg p.o. daily, clonidine 0.1 mg q.4 hours p.r.n., hypertension, systolic blood pressure about 160 mmHg. There was also clonidine 0.2 mg p.o. twice daily, Benadryl 25 mg q.6 hours p.r.n. pruritus, Cymbalta 40 mg p.o. daily, Neurontin 300 mg three times daily, hydralazine 50 mg p.o. twice daily, hydrochlorothiazide 50 mg p.o. daily, Dilaudid 4 mg p.o. q.3 hours p.r.n. severe pain, labetalol 400 mg q.12 hours, metoprolol 100 mg p.o. twice daily, MiraLax 17 g daily p.r.n. for constipation, prednisone 20 mg p.o. daily, and Ambien 5 mg p.o. nightly. ALLERGIES: To ketorolac and hydrocodone. FAMILY HISTORY: No premature coronary artery disease in first-degree relatives. SOCIAL HISTORY: He lives at home. Denies any tobacco, alcohol, or illicit drug use. REVIEW OF SYSTEMS: HEENT: Denies any headache, diplopia, or blurred vision. CONSTITUTIONAL: Denies any fever, chills, night sweats, or weight loss. CARDIOVASCULAR: Chest pain as mentioned above. Denies any shortness of breath, PND, orthopnea, leg swelling, palpitations, or syncope. PULMONARY: Denies any cough, hemoptysis, or wheezing. GASTROINTESTINAL: Denies any nausea, vomiting, diarrhea, constipation, abdominal pain, or GI bleeding. GENITOURINARY: Denies any hematuria, dysuria, or incontinence. NEUROLOGY: There is some numbness of the right hand. Otherwise no dysarthria, dysphagia, or signs of lateralization. PHYSICAL EXAMINATION: VITAL SIGNS: Blood pressure was 150/95, respirations 16, pulse of 69, temperature 98.8 degrees Fahrenheit, and O2 saturation 100%. GENERAL: The patient is a very delightful 51-year-old gentleman, in no apparent respiratory distress. Alert and oriented x4. HEENT: Atraumatic and normocephalic. Anicteric. Pupils are equal, round, and reactive to light and accommodation. Extraocular muscles are intact. NECK: JVP is less than 5 cm. No carotid bruit. Carotid upstrokes 2+ bilaterally. CARDIOVASCULAR: Normal S1 and S2. Regular rate and rhythm. No murmurs, gallops, or rubs. PMI is at fourth intercostal space at the midclavicular line. LUNGS: Clear to auscultation bilaterally. ABDOMEN: Soft, nontender, and nondistended. No hepatosplenomegaly. Positive bowel sounds. EXTREMITIES: No evidence of edema, clubbing, or cyanosis. DIAGNOSTIC DATA: Chest x-ray shows no acute cardiopulmonary disease. A 12-lead electrocardiogram shows sinus rhythm at a rate of 61 to 71 with Q-waves in lead V2 and poor R-wave progression in precordial leads suggestive of possible anteroseptal infarct, age indeterminate. ASSESSMENT AND PLAN: The patient is a very pleasant 51-year-old gentleman, who presents to the hospital for evaluation of chest pain at the request of Dr. Hoffman. The patient is seen in Cardiology consultation. 1. This is most likely noncardiac chest pain, hypertension may account for this condition. Review of 2D echocardiography in August 2016 had shown the presence of left ventricular hypertrophy. Blood pressure needs to be better controlled possibly with combination of diuretic and calcium-channel blockers as a second choice agents. We will continue to monitor the patient's blood pressure during this hospital stay. From the ischemic workup standpoint, the patient had a nuclear stress test in August 2016 which showed no evidence of myocardial wall ischemia. A 2D echocardiography also reveals normal left ventricular systolic function with left ventricular ejection fraction approximately 60% to 65%. No further cardiac intervention is required at this time. We will obtain fasting lipid panel for primary coronary artery disease preventive measures. 2. Accelerated hypertension. I would like to start the patient on a combination of diuretic and continue amlodipine. Hydralazine and metoprolol will also be continued. The latest blood pressure on the floor is still in stage II with a diastolic value of 107 mmHg. I would like to thank, Dr. Hoffman, for the courtesy of this consultation. Joni Mena M.D. DR: JT JOB#: [id number] CC:
[2017-02-12 20:00] VITALS: BP 147/97
[2017-02-13 00:30] VITALS: BP 156/86
[2017-02-13] MEDS: DiphenhydrAMINE 50mg/ml Inj IVP PRN ×3 (02:01→15:15)
[2017-02-13 04:29] VITALS: BP 146/112
[2017-02-13 08:03] LABS: BASOPHILS % (AUTO) 1.6 % (0.0-2.0); EOSINOPHILS % (AUTO) 3.8 % (0.0-3.0); LYMPHOCYTES % (AUTO) 43.3 % (20.0-45.0); MEAN CORPUSCULAR HGB CONC 32.8 G/DL (32.0-36.0); MEAN CORPUSCULAR VOLUME 95 FL (80-99); MONOCYTES % (AUTO) 10.4 % (1.0-10.0); NEUTROPHILS % (AUTO) 40.9 % (45.0-75.0); PLATELET COUNT 215 K/UL (150-450); RED BLOOD COUNT 4.68 M/UL (4.70-6.10); RED CELL DISTRIBUTION WIDTH 12.1 % (11.6-14.8); WHITE BLOOD COUNT 5.5 K/UL (4.8-10.8)
[2017-02-13] MEDS: HydrALAZINE 50mg tab ORAL SCH (08:18)
[2017-02-13] MEDS: Heparin 5000 units/ml inj SUBQ SCH (08:21)
[2017-02-13 08:40] VITALS: BP 155/107
[2017-02-13 08:47] LABS: ANION GAP 6 (5-15); CALCIUM 8.9 MG/DL (8.5-10.1); CARBON DIOXIDE 26 MMOL/L (21-32); CHLORIDE 106 MMOL/L (98-107); CREATININE 1.1 MG/DL (0.55-1.30); GLOMERULAR FILTRATION RATE > 60 mL/min (>60); POTASSIUM 4.4 MMOL/L (3.5-5.1); SODIUM 138 MMOL/L (136-145)
[2017-02-13 11:54] VITALS: BP 155/115
--- NOTE | 2017-02-13 14:28 | General Progress Note ---
Assessment/Plan Problem List: (1) Opiate dependence ICD Codes: F11.20 - Opioid dependence, uncomplicated SNOMED: 56473747 (2) Chest pain ICD Codes: R07.9 - Chest pain, unspecified SNOMED: 86761037 (3) Back sprain (4) Neuropathic pain ICD Codes: M79.2 - Neuropathic pain SNOMED: 524596645 (5) Anxiety disorder ICD Codes: F41.9 - Anxiety disorder SNOMED: 302706518 (6) HTN (hypertension) ICD Codes: I10 - Essential (primary) hypertension SNOMED: 44452227 (7) Multiple sclerosis, secondary progressive ICD Codes: G35 - Multiple sclerosis, secondary progressive SNOMED: 167530713 Status: stable, progressing, tolerating diet Assessment/Plan ot pt diet pain control bp control cbc bmp am dc if clear Subjective Constitutional: Reports: weakness Allergies: Coded Allergies: KETOROLAC (Verified Allergy, Severe, Anaphylaxis, 06/19/15) All Systems: reviewed and negative except above Subjective c/o sl lbp Objective Last 24 Hour Vital Signs Date Time Temp Pulse Resp B/P (MAP) Pulse Ox O2 Delivery O2 Flow Rate FiO2 02/13/17 11:54 97.7 71 20 155/115 95 Room Air 02/13/17 08:40 97.7 87 20 155/107 96 Room Air 02/13/17 08:18 87 155/107 02/13/17 08:18 155/107 02/13/17 08:17 87 155/107 02/13/17 08:00 88 02/13/17 04:29 97.7 85 20 146/112 95 Room Air 02/13/17 04:00 84 02/13/17 00:30 97.2 70 20 156/86 97 Room Air 02/13/17 00:00 81 02/12/17 21:00 88 147/97 02/12/17 20:59 147/97 02/12/17 20:00 89 02/12/17 20:00 98.2 88 20 147/97 99 Room Air 02/12/17 16:26 97.0 86 18 153/96 95 Room Air 02/12/17 16:00 87 Intake and Output 02/13/17 02/14/17 19:00 07:00 Intake Total 570 ml Balance 570 ml Intake Oral 570 ml # Voids 5 Laboratory Tests 02/12/17 17:20: Troponin I 0.017 02/13/17 07:10: Troponin I 0.010, White Blood Count 5.5, Red Blood Count 4.68L, Hemoglobin 14.5 , Hematocrit 44.2, Mean Corpuscular Volume 95, Mean Corpuscular Hemoglobin 31.0 , Mean Corpuscular Hemoglobin Concent 32.8, Red Cell Distribution Width 12.1, Platelet Count 215, Mean Platelet Volume 9.0, Neutrophils (%) (Auto) 40.9L, Lymphocytes (%) (Auto) 43.3, Monocytes (%) (Auto) 10.4H, Eosinophils (%) (Auto) 3.8H, Basophils (%) (Auto) 1.6, Sodium Level 138, Potassium Level 4.4, Chloride Level 106, Carbon Dioxide Level 26, Anion Gap 6, Blood Urea Nitrogen 16, Creatinine 1.1, Estimat Glomerular Filtration Rate > 60, Glucose Level 120H, Calcium Level 8.9 Height (Feet): 6 Height (Inches): 0.00 Weight (Pounds): 220 General Appearance: alert EENT: normal ENT inspection Neck: normal alignment Cardiovascular: normal peripheral pulses, normal rate, regular rhythm Respiratory/Chest: chest wall non-tender, lungs clear, normal breath sounds Abdomen: normal bowel sounds, non tender, soft Extremities: normal inspection Edema: no edema noted Arm (L), no edema noted Arm (R), no edema noted Leg (L), no edema noted Leg (R), no edema noted Pedal (L), no edema noted Pedal (R), no edema noted Generalized Neurologic: responsive, motor weakness Skin: normal pigmentation, warm/dry BARBARA RAGLAND Feb 13, 2017 14:28
--- NOTE | 2017-02-13 15:39 | Pulmonology Progress Note ---
Assessment/Plan Problems: (1) ACS (acute coronary syndrome) (2) Degenerative disc disease, cervical (3) Thalamic pain syndrome (4) Hypertension Assessment/Plan no new complains all reviewed chest pain much better watch BP f/u cardiology recommendations Subjective ROS Limited/Unobtainable: No Constitutional: Reports: no symptoms HEENT: Repors: no symptoms Respiratory: Reports: no symptoms Allergies: Coded Allergies: KETOROLAC (Verified Allergy, Severe, Anaphylaxis, 06/19/15) Objective Last 24 Hour Vital Signs Date Time Temp Pulse Resp B/P (MAP) Pulse Ox O2 Delivery O2 Flow Rate FiO2 02/13/17 11:54 97.7 71 20 155/115 95 Room Air 02/13/17 08:40 97.7 87 20 155/107 96 Room Air 02/13/17 08:18 87 155/107 02/13/17 08:18 155/107 02/13/17 08:17 87 155/107 02/13/17 08:00 88 02/13/17 04:29 97.7 85 20 146/112 95 Room Air 02/13/17 04:00 84 02/13/17 00:30 97.2 70 20 156/86 97 Room Air 02/13/17 00:00 81 02/12/17 21:00 88 147/97 02/12/17 20:59 147/97 02/12/17 20:00 89 02/12/17 20:00 98.2 88 20 147/97 99 Room Air 02/12/17 16:26 97.0 86 18 153/96 95 Room Air 02/12/17 16:00 87 Intake and Output 02/13/17 02/14/17 19:00 07:00 Intake Total 570 ml Balance 570 ml Intake Oral 570 ml # Voids 5 General Appearance: WD/WN HEENT: normocephalic, atraumatic Respiratory/Chest: chest wall non-tender, lungs clear Cardiovascular: normal peripheral pulses, normal rate Abdomen: normal bowel sounds, soft, non tender Extremities: no cyanosis Skin: no lesions Laboratory Tests 02/12/17 17:20: Troponin I 0.017 02/13/17 07:10: Troponin I 0.010, White Blood Count 5.5, Red Blood Count 4.68L, Hemoglobin 14.5 , Hematocrit 44.2, Mean Corpuscular Volume 95, Mean Corpuscular Hemoglobin 31.0 , Mean Corpuscular Hemoglobin Concent 32.8, Red Cell Distribution Width 12.1, Platelet Count 215, Mean Platelet Volume 9.0, Neutrophils (%) (Auto) 40.9L, Lymphocytes (%) (Auto) 43.3, Monocytes (%) (Auto) 10.4H, Eosinophils (%) (Auto) 3.8H, Basophils (%) (Auto) 1.6, Sodium Level 138, Potassium Level 4.4, Chloride Level 106, Carbon Dioxide Level 26, Anion Gap 6, Blood Urea Nitrogen 16, Creatinine 1.1, Estimat Glomerular Filtration Rate > 60, Glucose Level 120H, Calcium Level 8.9 Current Medications Medications (Trade) Dose Ordered Sig/Jessica Route PRN Reason Start Time Stop Time Status Last Admin Dose Admin Amlodipine Besylate (Norvasc) 10 mg DAILY ORAL 02/12/17 09:00 03/14/17 08:59 02/13/17 08:17 Clonidine HCl (Catapres) 0.1 mg Q8H PRN ORAL SBP greater than 160 02/11/17 13:30 03/13/17 13:29 Diphenhydramine HCl (Benadryl) 25 mg Q6H PRN IVP Itching 02/11/17 14:30 03/13/17 14:29 02/13/17 15:15 Duloxetine HCl (Cymbalta) 40 mg DAILY ORAL 02/12/17 09:00 03/14/17 08:59 02/13/17 08:09 Gabapentin (Neurontin) 300 mg THREE TIMES A DAY ORAL 02/11/17 14:00 03/13/17 13:59 02/13/17 13:49 Heparin Sodium (Porcine) (Heparin 5000 units/ml) 5,000 units EVERY 12 HOURS SUBQ 02/11/17 21:00 03/13/17 20:59 02/13/17 08:21 Hydralazine HCl (Apresoline) 50 mg Q12HR ORAL 02/11/17 21:00 03/13/17 20:59 02/13/17 08:18 Hydromorphone HCl (Dilaudid) 2 mg Q4H PRN IM Severe Pain (Pain Scale 7-10) 02/11/17 14:45 02/18/17 14:44 02/13/17 15:14 Metoprolol Tartrate (Lopressor) 100 mg Q12HR ORAL 02/11/17 21:00 03/13/17 20:59 02/13/17 08:18 Triamterene/HCTZ (Dyazide) 1 tab DAILY ORAL 02/12/17 09:00 03/14/17 08:59 UNV Zolpidem Tartrate (Ambien) 5 mg HSPRN PRN ORAL Insomnia 02/12/17 15:45 02/19/17 15:44 02/12/17 22:39 JOSHUA HARRIS Feb 13, 2017 15:39
[2017-02-13 16:01] VITALS: BP 163/106
--- NOTE | 2017-02-13 17:00 | Cardiology Progress Note ---
Assessment/Plan Assessment/Plan 1. Noncardiac chest pain, hypertension most likely accounts for this condition. Echo shows left ventricular hypertrophy with normal left ventricular systolic function with LVEF at 60% to 65%. Pursue primary coronary artery disease preventive measures. Lipid panel in am. 2. Hypertension, uncontrolled, increase hydralazine dose, continue Dyazide, metoprolol and amlodipine. Objective Last 24 Hour Vital Signs Date Time Temp Pulse Resp B/P (MAP) Pulse Ox O2 Delivery O2 Flow Rate FiO2 02/13/17 16:01 97.7 91 20 163/106 96 Room Air 02/13/17 16:00 81 02/13/17 12:00 78 02/13/17 11:54 97.7 71 20 155/115 95 Room Air 02/13/17 08:40 97.7 87 20 155/107 96 Room Air 02/13/17 08:18 87 155/107 02/13/17 08:18 155/107 02/13/17 08:17 87 155/107 02/13/17 08:00 88 02/13/17 04:29 97.7 85 20 146/112 95 Room Air 02/13/17 04:00 84 02/13/17 00:30 97.2 70 20 156/86 97 Room Air 02/13/17 00:00 81 02/12/17 21:00 88 147/97 02/12/17 20:59 147/97 02/12/17 20:00 89 02/12/17 20:00 98.2 88 20 147/97 99 Room Air Intake and Output 02/13/17 02/14/17 19:00 07:00 Intake Total 690 ml Balance 690 ml Intake Oral 690 ml # Voids 6 Laboratory Tests Test 02/12/17 17:20 02/13/17 07:10 Troponin I 0.017 ng/mL (0.000-0.056) 0.010 ng/mL (0.000-0.056) White Blood Count 5.5 K/UL (4.8-10.8) Red Blood Count 4.68 M/UL (4.70-6.10) L Hemoglobin 14.5 G/DL (14.2-18.0) Hematocrit 44.2 % (42.0-52.0) Mean Corpuscular Volume 95 FL (80-99) Mean Corpuscular Hemoglobin 31.0 PG (27.0-31.0) Mean Corpuscular Hemoglobin Concent 32.8 G/DL (32.0-36.0) Red Cell Distribution Width 12.1 % (11.6-14.8) Platelet Count 215 K/UL (150-450) Mean Platelet Volume 9.0 FL (6.5-10.1) Neutrophils (%) (Auto) 40.9 % (45.0-75.0) L Lymphocytes (%) (Auto) 43.3 % (20.0-45.0) Monocytes (%) (Auto) 10.4 % (1.0-10.0) H Eosinophils (%) (Auto) 3.8 % (0.0-3.0) H Basophils (%) (Auto) 1.6 % (0.0-2.0) Sodium Level 138 MMOL/L (136-145) Potassium Level 4.4 MMOL/L (3.5-5.1) Chloride Level 106 MMOL/L (98-107) Carbon Dioxide Level 26 MMOL/L (21-32) Anion Gap 6 (5-15) Blood Urea Nitrogen 16 mg/dL (7-18) Creatinine 1.1 MG/DL (0.55-1.30) Estimat Glomerular Filtration Rate > 60 mL/min (>60) Glucose Level 120 MG/DL (74-106) H Calcium Level 8.9 MG/DL (8.5-10.1) ELIANA MCGRATH Feb 13, 2017 17:00
[2017-02-13] MEDS ORDERED: HydrALAZINE 50mg tab ORAL SCH (18:00)
[2017-02-13 18:21] VITALS: BP 163/106
--- NOTE | 2017-02-14 15:02 | Discharge Summary ---
Discharge Summary Hospital Course Date of Admission Feb 11, 2017 at 11:56 Date of Discharge Feb 13, 2017 at 20:40 Admitting Diagnosis Chest apin HPI Teto Granda is a 51 year old male who was admitted on Feb 11, 2017 at 11:56 for Chest Pain Hospital Course [id number] Discharge Discharge Disposition Patient was discharged to Home (01) Discharge Diagnoses: Alicia Castrejon NP Feb 14, 2017 15:02
--- NOTE | 2017-02-14 22:30 | Discharge Summary 2 SIG ---
DATE OF ADMISSION: 02/11/2017 DATE OF DISCHARGE: 02/13/2017 CONSULTANTS: 1. Joni Mena M.D. 2. Dayo Conrad M.D. 3. Jassi Scott M.D. BRIEF HOSPITAL COURSE: The patient is a 51-year-old male, who lives at home with history of chronic pain due to MS, presented to ED complaining of chest pain, described to be substernal, sharp, and radiating to the right. The patient was anxious and presented to [facility] ED. On evaluation, troponin was negative. The patient took aspirin at home and was given a nitroglycerin at ED. Chest x-ray done showed no acute cardiopulmonary disease. An EKG was in normal sinus rhythm. He was admitted to telemetry for evaluation of acute coronary syndrome. Serial troponins were monitored. The patient underwent cardiac evaluation. A 12-lead EKG did not show any evidence of ST or T-wave abnormalities. From old records back in August 2016, he had a nuclear stress test, which was non-ischemic. A 2D echocardiography showed normal left ventricular systolic function with normal left ventricular wall motion, LVEF approximately 60% to 65%, however, there was evidence of mild left ventricular hypertrophy. Chest pain was likely noncardiac and may be due to hypertension. Blood pressure needed to be controlled. He was given combination of amlodipine and diuretic. He was continued on hydralazine and metoprolol. He was given Dilaudid for pain management. Urine toxicology was negative. Troponins were negative. He was eventually discharged home. FINAL DIAGNOSES: 1. Noncardiac chest pain. Chest pain, most likely due to hypertension. 2. Uncontrolled hypertension. 3. Opiate dependence. 4. Anxiety disorder. 5. Multiple sclerosis. 6. Back sprain and neuropathic pain. 7. Degenerative disk disease. DISCHARGE DISPOSITION: The patient was discharged home. FOLLOWUP: The patient was advised to follow up with PMD in a week. Dennis Hoffman D.O. I have been assigned to dictate discharge summary on this account and I was not involved in the patient's management. Alicia Castrejon N.P. DR: GRETA JOB#: [id number] CC: PIERCE
--- NOTE | 2017-02-24 12:25 | Cardiology Report ---
APPROVED REPORT EKG Measurement Heart [id number] CT [id number] Normal sinus rhythm Anteroseptal infarct, age undetermined Abnormal ECG
== END 2017-02-13 20:40 | disposition home or self-care (01) | DRG 305 ==
LOC: EMR 11:10 → 2E 11:56 → EDBEDREQ 12:05 → 2E 13:37
DX: I10 Essential (primary) hypertension (principal); F11.20 Opioid dependence, uncomplicated; G35 Multiple sclerosis; M50.10 Cervical disc disorder with radiculopathy, unspecified cervical region; R07.89 Other chest pain; M51.16 Intervertebral disc disorders with radiculopathy, lumbar region; M47.892 Other spondylosis, cervical region; M47.897 Other spondylosis, lumbosacral region; F32.9 Major depressive disorder, single episode, unspecified; Z86.73 Personal history of transient ischemic attack (TIA), and cerebral infarction without residual deficits; F41.9 Anxiety disorder, unspecified; G89.0 Central pain syndrome; M50.30 Other cervical disc degeneration, unspecified cervical region; M51.36 Other intervertebral disc degeneration, lumbar region; M47.812 Spondylosis without myelopathy or radiculopathy, cervical region; M47.816 Spondylosis without myelopathy or radiculopathy, lumbar region
CPT/HCPCS: 36415; 71010; 80048; 80053; 80300; 82550; 82553; 83880; 84484; 85025; 93005; 97803; 99285

== ENCOUNTER 2017-02-24 08:25 | Emergency (ER) | payer MEDICARE, OTHER ==
[~2017-02-24] VITALS: Ht 182.9 cm; Wt 99.8 kg
[2017-02-24 08:40] VITALS: BP 179/113
[2017-02-24 09:10] VITALS: BP 179/113
--- NOTE | 2017-02-24 12:43 | Emergency Room Report ---
History of Present Illness General Chief Complaint: Lower Back Pain or Injury Source: Patient Present Illness HPI 51-year-old male history of chronic back pain p/w back pain for 7 days. Pain is localized to the lateral lower back, sharp in nature, radiating down leg. Movement worsens pain. There are no alleviating factors. Patient states that he normally takes dilaudid but ran out of medication Patient has been to [facility] emergency room multiple times for same complaint Denies trauma. Denies lower extremity weakness/numbness, no bowel/bladder retention or incontinence, saddle anesthesia. Denies fever, chills, abdominal pain, n/v, dysuria/hematuria. No history of IVDA Allergies: Coded Allergies: KETOROLAC (Verified Allergy, Severe, Anaphylaxis, 06/19/15) Patient History Past Medical History: see triage record Past Surgical History: none Pertinent Family History: none Reviewed Nursing Documentation: PMH: Agreed, PSxH: Agreed Nursing Documentation-PMH Hx Hypertension: Yes Hx Asthma: No Hx COPD: No Hx Diabetes: No Hx Cancer: No Hx Gastrointestinal Problems: Yes Hx Dialysis: No Hx Neurological Problems: Yes - MS Hx Cerebrovascular Accident: Yes - TIA (2013) Hx Transient Ischemic Attacks: No Hx Dementia: No Hx Alzheimer's Disease: No Hx Parkinson's Disease: No Hx Meningitis: No Hx Encephalitis: No Hx Seizures: No Hx Epilepsy: No Hx Multiple Sclerosis: Yes Hx Cerebral Palsy: No Hx Amyotrophic Lat Sclerosis: No Hx Guillian-Oxford Syndrome: No Hx Paralysis: No Hx Peripheral Neuropathy: No Hx Spinal Cord Injury: No Hx Head Trauma: No Hx Traumatic Brain Injury: No Hx Memory Loss: No Hx Concentration Difficulty: No Hx Speech Problem: No Hx Tremors: No Hx Vertigo: No Hx Dizziness: No Hx Syncope: Yes Hx Headaches: Yes - SOMETIMES Hx Aphasia: No Hx Dysphasia: No Hx Numbness: Yes - RIGHT HAND Hx Weakness: Yes - ALL OF THE BODY Hx Fatigue: Yes - SLIGHT Hx Neurologic Surgery: No Hx Brain Shunt: No Review of Systems All Other Systems: negative except mentioned in HPI Physical Exam Vital Signs Date Time Temp Pulse Resp B/P (MAP) Pulse Ox O2 Delivery O2 Flow Rate FiO2 02/24/17 08:36 97.9 70 16 179/113 99 Room Air Sp02 EP Interpretation: reviewed, normal General Appearance: alert, GCS 15, non-toxic, mild distress Head: normocephalic, atraumatic Eyes: bilateral eye normal inspection, bilateral eye PERRL, bilateral eye EOMI ENT: normal ENT inspection, normal pharynx, normal voice, moist mucus membranes Neck: normal inspection, full range of motion, supple Respiratory: normal inspection, lungs clear, normal breath sounds, no respiratory distress, no retraction, no wheezing, speaking full sentences, chest symmetrical Cardiovascular #1: normal inspection, regular rate, rhythm, no edema, normal capillary refill Cardiovascular #2: 2+ radial (R), 2+ radial (L) Gastrointestinal: normal inspection, non-distended, no guarding Genitourinary: no CVA tenderness Musculoskeletal: normal range of motion, other - I did not examine patients back as he left before being fully evaluated Neurologic: normal inspection, alert, oriented x3, responsive, normal gait, speech normal, other - noted to be walking alone without assistance in ED Psychiatric: normal inspection, judgement/insight normal, memory normal Skin: normal inspection, normal color, no rash, warm/dry, well hydrated, normal turgor Medical Decision Making Diagnostic Impression: Primary Impression: Chronic back pain ER Course 51-year-old male with chronic back pain p/w back pain DDX: likely musculoskeletal back pain vs. muscular strain vs. sciatica Serious diagnoses such as cord compression, epidural abscess is unlikely in this patient given the clinical scenario and abscess of neurological symptoms or findings. Patient appears nontoxic. Plan: Patient offered pain medication however patient refusing any medication except for Dilantin ER course: Patient has remained nontoxic appearing and ambulatory in the ED. Patient became very angry and left the emergency room without discharge papers I was unable to fully examine patient as he left. Disposition: Patient left emergency room without discharge papers Please note that this Emergency Department Report was dictated using [employer] services technician technology software, occasionally this can lead to erroneous entry secondary to interpretation by the dictation equipment. Last Vital Signs Date Time Temp Pulse Resp B/P (MAP) Pulse Ox O2 Delivery O2 Flow Rate FiO2 02/24/17 08:40 97.9 80 16 179/113 99 Room Air Disposition: HOME, SELF-CARE Condition: Stable Referrals: NOT CHOSEN IPA/,REFERRING (PCP) Nena Hyatt M.D. Feb 24, 2017 12:43
== END 2017-02-24 14:32 | disposition home or self-care (01) ==
LOC: EMR 08:57
DX: M54.5 Low back pain (principal); G89.29 Other chronic pain; I10 Essential (primary) hypertension; Z86.73 Personal history of transient ischemic attack (TIA), and cerebral infarction without residual deficits; I05.0 Rheumatic mitral stenosis
CPT/HCPCS: 99282

== ENCOUNTER 2017-03-06 14:32 | Emergency (ER) | payer MEDICARE, OTHER ==
[~2017-03-06] VITALS: Ht 182.9 cm; Wt 99.8 kg
[2017-03-06] MEDS ORDERED: oxyCODONE HCL/Acetaminophen 5/325mg ORAL ONE (15:00)
[2017-03-06] MEDS ORDERED: HYDROmorphone 1mg/ml Carpuject IM ONE (15:00)
[2017-03-06 15:53] VITALS: BP 166/108
--- NOTE | 2017-03-06 17:11 | Emergency Room Report ---
History of Present Illness General Chief Complaint: Back Pain-No Injury Source: Patient Present Illness HPI Patient presents emergency department today complaining of lower back pain. Patient has chronic diffuse back pain. Patient is on Dilaudid chronically. Review of records and the cures report shows that patient takes oral Dilaudid as an outpatient. Patient's primary care physician is Dr. Barbara Ragland who apparently is out of town. Patient states that he is unable to contact his primary care physician or his pain management physician and has result came here because he's and severe pain and he has a headache and elevated blood pressure. Review of our records show the patient has been to emergency department multiple times. No other complaints are noted. Symptoms noted to be moderate to severe.No other modifying factors. No other associated signs and symptoms. No other complaints were noted. Allergies: Coded Allergies: KETOROLAC (Verified Allergy, Severe, Anaphylaxis, 06/19/15) Patient History Past Medical History: HTN, other - extremities, opiate dependence PMH Narrative MS, TIA, opiate depend Past Surgical History: none Pertinent Family History: none Social History: Denies: smoking, alcohol use, drug use Reviewed Nursing Documentation: PMH: Agreed, PSxH: Agreed Nursing Documentation-PMH Past Medical History: No History, Except For Hx Hypertension: Yes Hx Asthma: No Hx COPD: No Hx Diabetes: No Hx Cancer: No Hx Gastrointestinal Problems: Yes Hx Dialysis: No Hx Neurological Problems: Yes - MS Hx Cerebrovascular Accident: Yes - TIA (2013) Hx Transient Ischemic Attacks: No Hx Dementia: No Hx Alzheimer's Disease: No Hx Parkinson's Disease: No Hx Meningitis: No Hx Encephalitis: No Hx Seizures: No Hx Epilepsy: No Hx Multiple Sclerosis: Yes Hx Cerebral Palsy: No Hx Amyotrophic Lat Sclerosis: No Hx Guillian-[place] Syndrome: No Hx Paralysis: No Hx Peripheral Neuropathy: No Hx Spinal Cord Injury: No Hx Head Trauma: No Hx Traumatic Brain Injury: No Hx Memory Loss: No Hx Concentration Difficulty: No Hx Speech Problem: No Hx Tremors: No Hx Vertigo: No Hx Dizziness: No Hx Syncope: Yes Hx Headaches: Yes - SOMETIMES Hx Aphasia: No Hx Dysphasia: No Hx Numbness: Yes - RIGHT HAND Hx Weakness: Yes - ALL OF THE BODY Hx Fatigue: Yes - SLIGHT Hx Neurologic Surgery: No Hx Brain Shunt: No Review of Systems All Other Systems: negative except mentioned in HPI Physical Exam Vital Signs Date Time Temp Pulse Resp B/P (MAP) Pulse Ox O2 Delivery O2 Flow Rate FiO2 03/06/17 14:46 98.1 117 16 184/113 97 Room Air Sp02 EP Interpretation: reviewed, normal General Appearance: normal inspection, well appearing, no apparent distress, alert Head: atraumatic Eyes: bilateral eye normal inspection ENT: normal ENT inspection, hearing grossly normal, normal voice Neck: normal inspection, full range of motion, supple, no bony tend Respiratory: normal inspection, lungs clear, normal breath sounds, no respiratory distress, no retraction, no wheezing Cardiovascular #1: regular rate, rhythm, no edema Gastrointestinal: normal inspection, normal bowel sounds, non tender, soft, no guarding, no hernia Genitourinary: no CVA tenderness Musculoskeletal: normal inspection, back normal, normal range of motion Neurologic: normal inspection, alert, responsive, speech normal Psychiatric: normal inspection, judgement/insight normal, mood/affect normal Skin: normal inspection, normal color, no rash Medical Decision Making Diagnostic Impression: Primary Impression: Back pain Additional Impression: Opiate dependence ER Course She presents emergency department today complaining of exacerbation of her lower back pain. Patient is out of pain medications. Differential diagnoses include opiate dependence, drug seeking behavior, back strain just to name a few. Patient's exam is completely benign patient ambulate without difficulty. There is no evidence of cauda equina syndrome. This is a chronic condition which patient admits to. I reviewed cares and appears the patient is indeed out of pain medications. I informed him that I am uncomfortable refilling Dilaudid pain medications. However I was able to give him Dilaudid 1 mg intramuscular injection and 2 tablets of Percocet. This will help relieve any opiate withdrawal. Recommend close outpatient followup.Patient is advised to follow up with primary doctor in 2-3 days and return the emergency room for any worsening symptoms and as needed. Last Vital Signs Date Time Temp Pulse Resp B/P (MAP) Pulse Ox O2 Delivery O2 Flow Rate FiO2 03/06/17 15:53 89 18 166/108 97 Room Air 03/06/17 14:46 98.1 Status: improved Disposition: HOME, SELF-CARE Condition: Stable Referrals: BARBARA RAGLAND (PCP) Patient Instructions: Back Pain, Adult LETICIA BRODERICK M.D. Mar 06, 2017 17:11
== END 2017-03-06 15:52 | disposition home or self-care (01) ==
LOC: EMR 15:03
DX: M54.5 Low back pain (principal); F11.20 Opioid dependence, uncomplicated; I10 Essential (primary) hypertension; Z86.73 Personal history of transient ischemic attack (TIA), and cerebral infarction without residual deficits
CPT/HCPCS: 96372; 99284; J1170

== ENCOUNTER 2017-03-11 04:25 | Emergency (ER) | payer MEDICARE, OTHER ==
[~2017-03-11] VITALS: Ht 182.9 cm; Wt 99.8 kg
[2017-03-11] MEDS ORDERED: PREDNISONE20 MG ORAL (04:37)
[2017-03-11] MEDS ORDERED: ALBUTEROL SULF8.5 GM INH (04:37)
[2017-03-11 04:38] VITALS: BP 168/112
--- NOTE | 2017-03-11 04:38 | Emergency Room Report ---
History of Present Illness General Chief Complaint: Dyspnea/Respdistress Source: Patient Present Illness HPI This is a 51-year-old male with history of hypertension and CAD. He present with coughing congestion and feeling short of breath the last one to 2 days. No fever or chills. Does have hoarseness to his voice. Coughing is productive of yellow sputum. Denies any other complaint. Worse with inspiration. Allergies: Coded Allergies: KETOROLAC (Verified Allergy, Severe, Anaphylaxis, 06/19/15) Patient History Past Medical History: see triage record, old chart reviewed, HTN, CAD Past Surgical History: other Pertinent Family History: none Social History: Denies: smoking Immunizations: other Reviewed Nursing Documentation: PMH: Agreed, PSxH: Agreed Nursing Documentation-PMH Hx Hypertension: Yes Hx Asthma: No Hx COPD: No Hx Diabetes: No Hx Cancer: No Hx Gastrointestinal Problems: Yes Hx Dialysis: No Hx Neurological Problems: Yes - MS Hx Cerebrovascular Accident: Yes - TIA (2013) Hx Transient Ischemic Attacks: No Hx Dementia: No Hx Alzheimer's Disease: No Hx Parkinson's Disease: No Hx Meningitis: No Hx Encephalitis: No Hx Seizures: No Hx Epilepsy: No Hx Multiple Sclerosis: Yes Hx Cerebral Palsy: No Hx Amyotrophic Lat Sclerosis: No Hx Guillian-[place] Syndrome: No Hx Paralysis: No Hx Peripheral Neuropathy: No Hx Spinal Cord Injury: No Hx Head Trauma: No Hx Traumatic Brain Injury: No Hx Memory Loss: No Hx Concentration Difficulty: No Hx Speech Problem: No Hx Tremors: No Hx Vertigo: No Hx Dizziness: No Hx Syncope: Yes Hx Headaches: Yes - SOMETIMES Hx Aphasia: No Hx Dysphasia: No Hx Numbness: Yes - RIGHT HAND Hx Weakness: Yes - ALL OF THE BODY Hx Fatigue: Yes - SLIGHT Hx Neurologic Surgery: No Hx Brain Shunt: No Review of Systems Eye: Denies: eye pain, blurred vision ENT: Reports: nose congestion, Denies: ear pain, throat swelling Respiratory: Reports: cough, shortness of breath Cardiovascular: Denies: chest pain, palpitations Gastrointestinal: Denies: abdominal pain, diarrhea, nausea, vomiting Musculoskeletal: Denies: back pain, joint pain Skin: Denies: rash Neurological: Denies: headache, numbness Endocrine: Denies: increased thirst, increased urine Hematologic/Lymphatic: Denies: easy bruising All Other Systems: negative except mentioned in HPI Physical Exam Vital Signs Date Time Temp Pulse Resp B/P (MAP) Pulse Ox O2 Delivery O2 Flow Rate FiO2 03/11/17 04:27 97.9 87 16 167/106 95 Room Air vitals with high blood pressure Sp02 EP Interpretation: reviewed, normal General Appearance: well appearing, no apparent distress, alert Head: normocephalic, atraumatic Eyes: bilateral eye PERRL, bilateral eye EOMI ENT: hearing grossly normal, normal pharynx Neck: full range of motion, supple, no meningismus Respiratory: chest non-tender, lungs clear, normal breath sounds Cardiovascular #1: regular rate, rhythm, no murmur Gastrointestinal: normal bowel sounds, non tender, no mass, no organomegaly, no bruit, non-distended Musculoskeletal: back normal, gait/station normal, normal range of motion Psychiatric: mood/affect normal Skin: warm/dry Medical Decision Making Diagnostic Impression: Primary Impression: Acute viral bronchiolitis ER Course Patient with a viral bronchitis. No evidence of bacterial infection. No evidence of ACS, PE, dissection to name a few. We'll discharge home. Last Vital Signs Date Time Temp Pulse Resp B/P (MAP) Pulse Ox O2 Delivery O2 Flow Rate FiO2 03/11/17 04:27 97.9 87 16 167/106 95 Room Air Status: unchanged Disposition: HOME, SELF-CARE Condition: Stable Scripts Prednisone* (PREDNISONE*) 20 Mg Tablet 40 MG ORAL DAILY, #10 TAB Prov: JARVIS PARKS M.D. 03/11/17 Albuterol Sulfate* (ALBUTEROL SULFATE MDI*) 8.5 Gm Hfa.aer.ad 2 PUFF INH Q4H Y for cough/wheezing, #1 EA 0 Refills Prov: JARVIS PARKS M.D. 03/11/17 Additional Instructions: followup with your DrKassandra in 7 days. Return if symptom worsen. JARVIS PARKS M.D. Mar 11, 2017 04:38
[2017-03-11 04:49] VITALS: BP 168/112
== END 2017-03-11 05:05 | disposition home or self-care (01) ==
LOC: EMR 04:43
DX: J21.8 Acute bronchiolitis due to other specified organisms (principal); B34.9 Viral infection, unspecified; G35 Multiple sclerosis; Z86.73 Personal history of transient ischemic attack (TIA), and cerebral infarction without residual deficits
CPT/HCPCS: 99283

== ENCOUNTER 2017-03-17 08:38 | Emergency (ER) | payer MEDICARE, OTHER ==
[~2017-03-17] VITALS: Ht 182.9 cm; Wt 99.8 kg
[~2017-03-17 08:38] MED LIST changes: +ALBUTEROL SULF8.5 GM INH
[2017-03-17 08:57] VITALS: BP 194/139
[2017-03-17 09:08] VITALS: BP 174/133
--- NOTE | 2017-03-17 09:34 | Emergency Room Report ---
History of Present Illness General Chief Complaint: Pain Source: Patient, Medical Record Present Illness HPI [id number] walk in with 2 complaints: 1) Left sided frontal headache 2 days. No assoc nausea/vomiting, fever/chills, neck pain/stiffness. No formal diagnosis of migraines but says he "used to have them." Not on migraine meds. Didnt take anything for pain. Headache doesnt keep him up at night. States he has MS - that any change in weather activates an "MS flare up." 2) Left sided chest pain. Sharp, worse with movement. No n/v/diaphoresis, SOB. History of HTN, ?HLD. Denies DM history. States had cath years ago but "my arteries were clean." On daily ASA. Was treated here recently for bronchitis-states that resolved. Denies SOB, fever/chils, cough Allergies: Coded Allergies: KETOROLAC (Verified Allergy, Severe, Anaphylaxis, 06/19/15) Patient History Past Medical History: see triage record, old chart reviewed Past Surgical History: none Pertinent Family History: none Social History: Denies: smoking, alcohol use, drug use Immunizations: UTD Reviewed Nursing Documentation: PMH: Agreed, PSxH: Agreed Nursing Documentation-PMH Past Medical History: No History, Except For Hx Hypertension: Yes Hx Asthma: No Hx COPD: No Hx Diabetes: No Hx Cancer: No Hx Gastrointestinal Problems: Yes Hx Dialysis: No Hx Neurological Problems: Yes - MS Hx Cerebrovascular Accident: Yes - TIA (2013) Hx Transient Ischemic Attacks: No Hx Dementia: No Hx Alzheimer's Disease: No Hx Parkinson's Disease: No Hx Meningitis: No Hx Encephalitis: No Hx Seizures: No Hx Epilepsy: No Hx Multiple Sclerosis: Yes Hx Cerebral Palsy: No Hx Amyotrophic Lat Sclerosis: No Hx Guillian-[place] Syndrome: No Hx Paralysis: No Hx Peripheral Neuropathy: No Hx Spinal Cord Injury: No Hx Head Trauma: No Hx Traumatic Brain Injury: No Hx Memory Loss: No Hx Concentration Difficulty: No Hx Speech Problem: No Hx Tremors: No Hx Vertigo: No Hx Dizziness: No Hx Syncope: Yes Hx Headaches: Yes - SOMETIMES Hx Aphasia: No Hx Dysphasia: No Hx Numbness: Yes - RIGHT HAND Hx Weakness: Yes - ALL OF THE BODY Hx Fatigue: Yes - SLIGHT Hx Neurologic Surgery: No Hx Brain Shunt: No Physical Exam Vital Signs Date Time Temp Pulse Resp B/P (MAP) Pulse Ox O2 Delivery O2 Flow Rate FiO2 03/17/17 08:44 97.9 82 18 174/131 98 Room Air Medical Decision Making Diagnostic Impression: Primary Impression: Headache Additional Impression: Chest pain Qualified Codes: R07.9 - Chest pain, unspecified ER Course Headache: Unlikely SAH, meningitis given well appearance, days of symptoms. Of note, BP is ALWAYS high on visits to ED. HTN is not being managed properly outpatient. I doubt HTN urgency given no AMS, encephalopathy. Chest pain: 1 day of symptom - HTN risk factor for ACS. We agreed on plan to do ECG for chest pain and Reglan/Tylenol for migraine/ headche When I went to see another patient, RN told me patient refused the aforementioned and walked out He did not wait for DC papers I contacted PMD Dr Ragland who advised me to tell patient to make outpatient appt but patient had left ER before I could speak with him again Last Vital Signs Date Time Temp Pulse Resp B/P (MAP) Pulse Ox O2 Delivery O2 Flow Rate FiO2 03/17/17 08:57 97.9 62 18 194/139 96 Room Air Status: improved Disposition: ELOPED Referrals: BARBARA RAGLAND (PCP) DEBORA LAIRD M.D. Mar 17, 2017 09:34
== END 2017-03-17 09:08 | disposition home or self-care (01) ==
LOC: EMR 09:00
DX: R51 Headache (principal); R07.9 Chest pain, unspecified; G35 Multiple sclerosis; Z86.73 Personal history of transient ischemic attack (TIA), and cerebral infarction without residual deficits; I10 Essential (primary) hypertension; Z79.82 Long term (current) use of aspirin; Z88.8 Allergy status to other drugs, medicaments and biological substances
CPT/HCPCS: 99284

== ENCOUNTER 2017-03-22 01:27 | Emergency (ER) | payer MEDICARE, OTHER ==
[~2017-03-22] VITALS: Ht 182.9 cm; Wt 99.8 kg
[2017-03-22 01:35] VITALS: BP 185/112
[2017-03-22 01:40] VITALS: BP 188/112
--- NOTE | 2017-03-22 01:41 | Emergency Room Report ---
History of Present Illness General Chief Complaint: Chest Pain Source: Patient Present Illness HPI Is a 50-year-old male with a history of multiple sclerosis and high blood pressure. He also a history of chronic back pain. His been here numerous times for back pain and chest pain. He said his been having chest pain has been constant since yesterday. Sharp in nature. To the right side. No nausea no vomiting. No radiation. Pain is 8/10. He is out of his pain medication. He claimed that he is taking his blood pressure medication. He is taking clonidine, hydrochlorothiazide and metoprolol. Allergies: Coded Allergies: KETOROLAC (Verified Allergy, Severe, Anaphylaxis, 06/19/15) Patient History Past Medical History: see triage record, old chart reviewed, HTN, other - Multiple sclerosis Past Surgical History: other Pertinent Family History: none Social History: Denies: smoking, alcohol use, drug use Immunizations: other Reviewed Nursing Documentation: PMH: Agreed, PSxH: Agreed Nursing Documentation-PMH Hx Cardiac Problems: Yes - CAD Hx Hypertension: Yes Hx Asthma: No Hx COPD: No Hx Diabetes: No Hx Cancer: No Hx Gastrointestinal Problems: Yes Hx Dialysis: No Hx Neurological Problems: Yes - MS Hx Cerebrovascular Accident: Yes - TIA (2013) Hx Transient Ischemic Attacks: No Hx Dementia: No Hx Alzheimer's Disease: No Hx Parkinson's Disease: No Hx Meningitis: No Hx Encephalitis: No Hx Seizures: No Hx Epilepsy: No Hx Multiple Sclerosis: Yes Hx Cerebral Palsy: No Hx Amyotrophic Lat Sclerosis: No Hx Guillian-[place] Syndrome: No Hx Paralysis: No Hx Peripheral Neuropathy: No Hx Spinal Cord Injury: No Hx Head Trauma: No Hx Traumatic Brain Injury: No Hx Memory Loss: No Hx Concentration Difficulty: No Hx Speech Problem: No Hx Tremors: No Hx Vertigo: No Hx Dizziness: No Hx Syncope: Yes Hx Headaches: Yes - SOMETIMES Hx Aphasia: No Hx Dysphasia: No Hx Numbness: Yes - RIGHT HAND Hx Weakness: Yes - ALL OF THE BODY Hx Fatigue: Yes - SLIGHT Hx Neurologic Surgery: No Hx Brain Shunt: No Review of Systems Eye: Denies: eye pain, blurred vision ENT: Denies: ear pain, nose congestion, throat swelling Respiratory: Denies: cough, shortness of breath Cardiovascular: Reports: chest pain, Denies: palpitations Gastrointestinal: Denies: abdominal pain, diarrhea, nausea, vomiting Musculoskeletal: Denies: back pain, joint pain Skin: Denies: rash Neurological: Denies: headache, numbness Endocrine: Denies: increased thirst, increased urine Hematologic/Lymphatic: Denies: easy bruising All Other Systems: negative except mentioned in HPI Physical Exam Vital Signs Date Time Temp Pulse Resp B/P (MAP) Pulse Ox O2 Delivery O2 Flow Rate FiO2 03/22/17 01:33 97.2 60 23 185/112 98 Room Air vitals with high blood pressure Sp02 EP Interpretation: reviewed, normal General Appearance: well appearing, no apparent distress, alert Head: normocephalic, atraumatic Eyes: bilateral eye PERRL, bilateral eye EOMI ENT: hearing grossly normal, normal pharynx Neck: full range of motion, supple, no meningismus Respiratory: chest non-tender, lungs clear, normal breath sounds Cardiovascular #1: regular rate, rhythm, no murmur Gastrointestinal: normal bowel sounds, non tender, no mass, no organomegaly, no bruit, non-distended Musculoskeletal: back normal, gait/station normal, normal range of motion Psychiatric: mood/affect normal Skin: warm/dry Medical Decision Making Diagnostic Impression: Primary Impression: Chest pain Qualified Codes: R07.9 - Chest pain, unspecified Additional Impressions: Back pain Qualified Codes: M54.5 - Low back pain HTN (hypertension) Qualified Codes: I10 - Essential (primary) hypertension Opiate dependence Qualified Codes: F11.20 - Opioid dependence, uncomplicated Narcotic dependence ER Course Patient presents with chest pain and back pain. This is a chronic issue for him. His been admitted in the past for the same thing. His echocardiogram is unremarkable except for ventricular hypertrophy. His nuclear stress test was negative in September. His blood pressures has always been elevated erythematous came here. I suspect noncompliance with his medication. In the hospital usually normalized. I explained to patient that I will check labs, treat his blood pressure medication and given Tylenol for pain. He was not happy with this. He wanted IV narcotics. Because of this, patient got up and left. He said he doesn't want to stay if he doesn't get pain medication. Patient is competent to leave AGAINST MEDICAL ADVICE. No EKG was done because patient left as the tech was setting up for EKG. Last Vital Signs Date Time Temp Pulse Resp B/P (MAP) Pulse Ox O2 Delivery O2 Flow Rate FiO2 03/22/17 01:33 97.2 60 23 185/112 98 Room Air Status: unchanged Disposition: AGAINST MEDICAL ADVICE Condition: Stable JARVIS PARKS M.D. Mar 22, 2017 01:41
== END 2017-03-22 01:50 | disposition left against medical advice (07) ==
LOC: EMR 01:45
DX: R07.9 Chest pain, unspecified (principal); M54.9 Dorsalgia, unspecified; G89.29 Other chronic pain; I10 Essential (primary) hypertension; G35 Multiple sclerosis; F11.20 Opioid dependence, uncomplicated; I25.10 Atherosclerotic heart disease of native coronary artery without angina pectoris; Z86.73 Personal history of transient ischemic attack (TIA), and cerebral infarction without residual deficits
CPT/HCPCS: 99283

== ENCOUNTER 2017-03-27 10:04 | Emergency (ER) | payer MEDICARE, OTHER ==
[~2017-03-27] VITALS: Ht 182.9 cm; Wt 99.8 kg
[2017-03-27 10:21] VITALS: BP 158/106
[2017-03-27] MEDS ORDERED: Methocarbamol 750mg tab ORAL ONE (10:45)
[2017-03-27] MEDS ORDERED: ROBAXIN-750750 MG PO (10:45)
[2017-03-27 11:33] VITALS: BP 148/82
--- NOTE | 2017-03-27 18:17 | Emergency Room Report ---
History of Present Illness General Chief Complaint: Lower Back Pain or Injury Source: Patient Present Illness HPI The patient is a 51-year-old male who presented after increased low back pain. Patient gradual onset of symptoms. Patient reports having multiple recent admissions for similar type pain. Patient reported having some pain radiating to his left leg. Patient prior history of hypertension which is long-standing. The patient reports having been recently prescribed narcotic medications. Patient is followed by Dr. Dennis Hoffman Allergies: Coded Allergies: KETOROLAC (Verified Allergy, Severe, Anaphylaxis, 06/19/15) Patient History Past Medical History: see triage record Reviewed Nursing Documentation: PMH: Agreed, PSxH: Agreed Nursing Documentation-PMH Hx Cardiac Problems: Yes - Coronary artery disease Hx Hypertension: Yes Hx Pacemaker: No Hx Asthma: No Hx COPD: No Hx Diabetes: No Hx Cancer: No Hx Gastrointestinal Problems: No Hx Dialysis: No History Of Psychiatric Problem: Yes - Anxiety Hx Cerebrovascular Accident: Yes - 2013 Hx Transient Ischemic Attacks: No Hx Dementia: No Hx Alzheimer's Disease: No Hx Parkinson's Disease: No Hx Meningitis: No Hx Encephalitis: No Hx Seizures: No Hx Epilepsy: No Hx Multiple Sclerosis: Yes Hx Cerebral Palsy: No Hx Amyotrophic Lat Sclerosis: No Hx Guillian-[place] Syndrome: No Hx Paralysis: No Hx Peripheral Neuropathy: No Hx Spinal Cord Injury: No Hx Head Trauma: No Hx Traumatic Brain Injury: No Hx Memory Loss: No Hx Concentration Difficulty: No Hx Speech Problem: No Hx Tremors: No Hx Vertigo: No Hx Dizziness: No Hx Syncope: Yes Hx Headaches: Yes - SOMETIMES Hx Aphasia: No Hx Dysphasia: No Hx Numbness: Yes - RIGHT HAND Hx Weakness: Yes - ALL OF THE BODY Hx Fatigue: Yes - SLIGHT Hx Neurologic Surgery: No Hx Brain Shunt: No Review of Systems All Other Systems: negative except mentioned in HPI Physical Exam Vital Signs Date Time Temp Pulse Resp B/P (MAP) Pulse Ox O2 Delivery O2 Flow Rate FiO2 03/27/17 10:06 97.9 72 16 158/106 100 Room Air General Appearance: well appearing, no apparent distress, alert, GCS 15 Head: normocephalic, atraumatic ENT: hearing grossly normal, normal voice Neck: full range of motion, supple Respiratory: no respiratory distress, speaking full sentences Musculoskeletal: no calf tenderness Neurologic: normal gait Psychiatric: mood/affect normal Skin: no rash Medical Decision Making Diagnostic Impression: Primary Impression: Chronic back pain greater than 3 months duration ER Course Patient presented for back pain. Differential diagnosis included but was not limited to herniated disc, cauda equina syndrome, abdominal aortic aneurysm, perforated ulcer, spinal epidural abscess, spinal stenosis, lumbar fracture, metastatic lesion, pyelonephritis. Patient's benign exam and does not appear to require any further imaging or laboratory testing at this time. The patient blood pressure which he usually poorly controlled is currently adequate. The patient was given Robaxin for pain.The patient is advised to follow up with primary care doctor in 1-2 days. Patient is advised to return if any worsening condition or if any changes in status that are concerning. Last Vital Signs Date Time Temp Pulse Resp B/P (MAP) Pulse Ox O2 Delivery O2 Flow Rate FiO2 03/27/17 11:33 148/82 03/27/17 10:21 97.9 16 100 Room Air 03/27/17 10:06 72 Status: improved Disposition: HOME, SELF-CARE Condition: Stable Scripts Methocarbamol* (ROBAXIN-750*) 750 Mg Tablet 750 MG PO TID, #21 TAB 0 Refills Prov: Ramón Blackwell 03/27/17 Patient Instructions: Back Pain, Adult Ramón Blackwell Mar 27, 2017 18:17
== END 2017-03-27 11:35 | disposition home or self-care (01) ==
LOC: EMR 10:33
DX: M54.5 Low back pain (principal); G89.29 Other chronic pain; I25.10 Atherosclerotic heart disease of native coronary artery without angina pectoris
CPT/HCPCS: 99283

== ENCOUNTER 2017-07-10 16:50 | Inpatient (IN) | payer MEDICARE, OTHER ==
[~2017-07-10] VITALS: Ht 182.9 cm; Wt 104.3 kg
[~2017-07-10 16:50] MED LIST changes: +ROBAXIN-750750 MG PO
[2017-07-10 18:11] VITALS: BP 145/99
[2017-07-10] MEDS ORDERED: Solu-MEDROL 125mg Inj IVP ONE ×2 (19:45→22:00)
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
[2017-07-10] MEDS ORDERED: oxyCODONE HCL/Acetaminophen 5/325mg ORAL ONE (21:15)
[2017-07-10 21:40] LABS: BASOPHILS % (AUTO) 0.9 % (0.0-2.0); EOSINOPHILS % (AUTO) 1.7 % (0.0-3.0); HEMATOCRIT 43.3 % (42.0-52.0); MEAN CORPUSCULAR VOLUME 90 FL (80-99); MONOCYTES % (AUTO) 8.2 % (1.0-10.0); NEUTROPHILS % (AUTO) 54.2 % (45.0-75.0); PLATELET COUNT 274 K/UL (150-450); RED BLOOD COUNT 4.82 M/UL (4.70-6.10); RED CELL DISTRIBUTION WIDTH 12.7 % (11.6-14.8); WHITE BLOOD COUNT 5.9 K/UL (4.8-10.8)
[2017-07-10 21:50] LABS: ANION GAP 7 mmol/L (5-15); BLOOD UREA NITROGEN 19 mg/dL (7-18); CALCIUM 9.7 MG/DL (8.5-10.1); CARBON DIOXIDE 32 MMOL/L (21-32); CHLORIDE 102 MMOL/L (98-107); CREATININE 1.3 MG/DL (0.55-1.30); POTASSIUM 3.6 MMOL/L (3.5-5.1); SODIUM 140 MMOL/L (136-145)
[2017-07-10 22:05] LABS: ALANINE AMINOTRANSFERASE 55 U/L (12-78); ALBUMIN 3.5 G/DL (3.4-5.0); ALBUMIN/GLOBULIN RATIO 1.1 (1.0-2.7); ALKALINE PHOSPHATASE 100 U/L (46-116); ASPARTATE AMINO TRANSFERASE 29 U/L (15-37); BILIRUBIN,TOTAL 0.4 MG/DL (0.2-1.0); CKMB 2.2 NG/ML (0.0-3.6); CREATINE KINASE 176 U/L (26-308)
[2017-07-10 23:18] VITALS: BP 168/99
[2017-07-11] VITALS (7 sets, daily range): BP systolic 140–169; BP diastolic 98–119
[2017-07-11] MEDS ORDERED: HydrALAZINE 25mg tab ORAL PRN (01:45)
[2017-07-11] MEDS ORDERED: Norco 5mg/325mg tab ORAL PRN (01:45)
[2017-07-11] MEDS ORDERED: HYDROmorphone 1mg/ml Carpuject IVP PRN (03:15)
[2017-07-11] MEDS: DiphenhydrAMINE 50mg/ml Inj IVP PRN ×4 (04:03→23:04)
[2017-07-11] MEDS: HYDROmorphone 1mg/ml Carpuject IVP PRN ×2 (04:03→08:25)
[2017-07-11] MEDS: HydrALAZINE 25mg tab ORAL PRN ×3 (07:01→20:38)
[2017-07-11] MEDS: Heparin 5000 units/ml inj SUBQ SCH ×3 (08:26→18:28)
--- NOTE | 2017-07-11 09:40 | General Progress Note ---
Assessment/Plan Assessment/Plan (1) Multiple Sclerosis (2) Neuropathic pain (3) Cervical DDD (4) Cervical spondylosis (5) Lumbar DDD (6) Lumbar spondylosis (7) Narcotic Dependency Patient will be continued on the Dilaudid changed to 2mg IM Q4H PRN severe pain. Pt was d/w Dr. Scott and he concurred. Thank you for the courtesy of this consultation. Subjective Date patient seen: Jul 11, 2017 Time patient seen: 08:45 - am Allergies: Coded Allergies: KETOROLAC (Verified Allergy, Severe, Anaphylaxis, 06/19/15) Subjective Constitutional: Reports: weakness, Denies: chills, diaphoresis, fever, malaise , no symptoms, other HEENT: Denies: blurred vision, double vision, ear discharge, ear pain, eye pain , mouth pain, mouth swelling, no symptoms, nose congestion, nose pain, other, tearing, throat pain, throat swelling Cardiovascular: Denies: edema, irregular heart rate, lightheadedness, no symptoms, other, palpitations, syncope Respiratory: Denies: SOB at rest, SOB with excertion, cough, no symptoms, orthopnea, other, shortness of breath, sputum, stridor, wheezing Gastrointestinal/Abdominal: Denies: abdomen distended, abdominal pain, black stools, blood in stool, constipated, diarrhea, difficulty swallowing, nausea, no symptoms, other, poor appetite, poor fluid intake, rectal bleeding, tarry stools, vomiting Genitourinary: Denies: burning, discharge, flank pain, frequency, hematuria, incontinence, no symptoms, other, pain, urgency Neurologic/Psychiatric: Reports: weakness, Denies: anxiety, depressed, emotional problems, headache, no symptoms, numbness, other, paresthesia, pre- existing deficit, seizure, tingling, tremors Endocrine: Denies: excessive sweating, flushing, increased hunger, increased thirst, increased urine, intolerance to cold, intolerance to heat, no symptoms, other, unexplained weight gain, unexplained weight loss Hematologic/Lymphatic: Denies: anemia, easy bleeding, easy bruising, no symptoms, other Subjective Patient has been admitted due to MS exacerbation and is c/o severe pain. He is on Dilaudid 1mg IV Q4H PRN with minimal pain relief. We were consulted so patient would have adequate pain relief while here in the hospital. Objective Last 24 Hour Vital Signs Date Time Temp Pulse Resp B/P (MAP) Pulse Ox O2 Delivery O2 Flow Rate FiO2 07/11/17 08:00 97.7 108 18 169/109 97 Room Air 97.7 07/11/17 07:01 150/117 07/11/17 04:00 98.0 107 19 150/117 92 Room Air 98.0 07/11/17 00:00 97.7 92 19 167/106 99 Room Air 97.7 07/10/17 23:49 87 16 168/99 99 Room Air 07/10/17 23:18 87 16 168/99 99 Room Air 07/10/17 22:09 178/104 07/10/17 18:11 71 16 145/99 99 Room Air 07/10/17 17:45 71 16 07/10/17 16:47 97.1 71 16 155/129 99 Room Air 97.2 Intake and Output 07/10/17 07/11/17 19:00 07:00 Intake Total 0 ml 450 ml Balance 0 ml 450 ml Intake Oral 0 ml 450 ml # Voids 2 Laboratory Tests 07/10/17 21:30: White Blood Count 5.9, Red Blood Count 4.82, Hemoglobin 15.0, Hematocrit 43.3, Mean Corpuscular Volume 90, Mean Corpuscular Hemoglobin 31.1H, Mean Corpuscular Hemoglobin Concent 34.6, Red Cell Distribution Width 12.7, Platelet Count 274, Mean Platelet Volume 6.3L, Neutrophils (%) (Auto) 54.2, Lymphocytes (%) (Auto) 35.0, Monocytes (%) (Auto) 8.2, Eosinophils (%) (Auto) 1.7, Basophils (%) (Auto ) 0.9, Sodium Level 140, Potassium Level 3.6, Chloride Level 102, Carbon Dioxide Level 32, Anion Gap 7, Blood Urea Nitrogen 19H, Creatinine 1.3, Estimat Glomerular Filtration Rate > 60, Glucose Level 89, Calcium Level 9.7, Total Bilirubin 0.4, Aspartate Amino Transf (AST/SGOT) 29, Alanine Aminotransferase ( ALT/SGPT) 55, Alkaline Phosphatase 100, Total Creatine Kinase 176, Creatine Kinase MB 2.2, Creatine Kinase MB Relative Index 1.2, Troponin I 0.005, Total Protein 6.7, Albumin 3.5, Globulin 3.2, Albumin/Globulin Ratio 1.1 Height (Feet): 6 Height (Inches): 0.00 Weight (Pounds): 230 Objective General Appearance: no apparent distress, alert EENT: PERRL/EOMI, normal ENT inspection Neck: non-tender, normal alignment Cardiovascular: normal peripheral pulses, normal rate, regular rhythm Respiratory/Chest: lungs clear, normal breath sounds Abdomen: non tender, soft Extremities: non-tender Edema: no edema noted Arm (L), no edema noted Arm (R), no edema noted Leg (L), no edema noted Leg (R), no edema noted Pedal (L), no edema noted Pedal (R), no edema noted Generalized Neurologic: alert, oriented x 3 Skin: warm/dry MAYCOL WILEY Jul 11, 2017 09:40
[2017-07-11] MEDS: HYDROmorphone 1mg/ml Carpuject IM PRN ×4 (10:16→22:30)
[2017-07-11] MEDS ORDERED: Solu-MEDROL 125mg Inj IVP SCH (10:30)
--- NOTE | 2017-07-11 10:34 | Neurology Progress Note ---
Objective Physical Exam Last Vital Signs Date Time Temp Pulse Resp B/P (MAP) Pulse Ox O2 Delivery O2 Flow Rate FiO2 07/11/17 10:15 166/108 07/11/17 10:00 100 07/11/17 08:00 97.7 18 97 Room Air 97.7 Laboratory Tests Test 07/10/17 21:30 White Blood Count 5.9 K/UL (4.8-10.8) Red Blood Count 4.82 M/UL (4.70-6.10) Hemoglobin 15.0 G/DL (14.2-18.0) Hematocrit 43.3 % (42.0-52.0) Mean Corpuscular Volume 90 FL (80-99) Mean Corpuscular Hemoglobin 31.1 PG (27.0-31.0) H Mean Corpuscular Hemoglobin Concent 34.6 G/DL (32.0-36.0) Red Cell Distribution Width 12.7 % (11.6-14.8) Platelet Count 274 K/UL (150-450) Mean Platelet Volume 6.3 FL (6.5-10.1) L Neutrophils (%) (Auto) 54.2 % (45.0-75.0) Lymphocytes (%) (Auto) 35.0 % (20.0-45.0) Monocytes (%) (Auto) 8.2 % (1.0-10.0) Eosinophils (%) (Auto) 1.7 % (0.0-3.0) Basophils (%) (Auto) 0.9 % (0.0-2.0) Sodium Level 140 MMOL/L (136-145) Potassium Level 3.6 MMOL/L (3.5-5.1) Chloride Level 102 MMOL/L (98-107) Carbon Dioxide Level 32 MMOL/L (21-32) Anion Gap 7 mmol/L (5-15) Blood Urea Nitrogen 19 mg/dL (7-18) H Creatinine 1.3 MG/DL (0.55-1.30) Estimat Glomerular Filtration Rate > 60 mL/min (>60) Glucose Level 89 MG/DL (74-106) Calcium Level 9.7 MG/DL (8.5-10.1) Total Bilirubin 0.4 MG/DL (0.2-1.0) Aspartate Amino Transf (AST/SGOT) 29 U/L (15-37) Alanine Aminotransferase (ALT/SGPT) 55 U/L (12-78) Alkaline Phosphatase 100 U/L (46-116) Total Creatine Kinase 176 U/L (26-308) Creatine Kinase MB 2.2 NG/ML (0.0-3.6) Creatine Kinase MB Relative Index 1.2 Troponin I 0.005 ng/mL (0.000-0.056) Total Protein 6.7 G/DL (6.4-8.2) Albumin 3.5 G/DL (3.4-5.0) Globulin 3.2 g/dL Albumin/Globulin Ratio 1.1 (1.0-2.7) Impression/Recommendations Problems: (1) Multiple sclerosis, secondary progressive (2) Opiate dependence (3) Accelerated hypertension Status: unchanged Recommendations #[id number] MARKOS CROOKS Jul 11, 2017 10:34
[2017-07-11 10:55] LABS: BASOPHILS % (AUTO) 0.4 % (0.0-2.0); HEMATOCRIT 41.6 % (42.0-52.0); HEMOGLOBIN 14.4 G/DL (14.2-18.0); LYMPHOCYTES % (AUTO) 15.4 % (20.0-45.0); MEAN CORPUSCULAR VOLUME 90 FL (80-99); NEUTROPHILS % (AUTO) 76.1 % (45.0-75.0); PLATELET COUNT 313 K/UL (150-450); RED BLOOD COUNT 4.64 M/UL (4.70-6.10); WHITE BLOOD COUNT 7.6 K/UL (4.8-10.8)
[2017-07-11] MEDS: Magnesium Oxide 400mg tab ORAL SCH ×2 (11:00→18:27)
[2017-07-11] MEDS: Vitamin D 1000 IU Tab ORAL SCH (11:00)
[2017-07-11 11:29] LABS: ALANINE AMINOTRANSFERASE 47 U/L (12-78); ALBUMIN 3.3 G/DL (3.4-5.0); ALBUMIN/GLOBULIN RATIO 1.1 (1.0-2.7); ALKALINE PHOSPHATASE 98 U/L (46-116); ANION GAP 6 mmol/L (5-15); ASPARTATE AMINO TRANSFERASE 23 U/L (15-37); BILIRUBIN,TOTAL 0.3 MG/DL (0.2-1.0); BLOOD UREA NITROGEN 26 mg/dL (7-18); CALCIUM 9.4 MG/DL (8.5-10.1); CARBON DIOXIDE 27 MMOL/L (21-32); CHLORIDE 104 MMOL/L (98-107); CREATININE 1.4 MG/DL (0.55-1.30); POTASSIUM 3.9 MMOL/L (3.5-5.1); SODIUM 136 MMOL/L (136-145)
[2017-07-11 11:38] LABS: CHOLESTEROL 206 MG/DL (< 200); HDL CHOLESTEROL 64 MG/DL (40-60); TRIGLYCERIDES 58 MG/DL (30-150)
--- NOTE | 2017-07-11 13:36 | History & Physical ---
History and Physical History & Physicial [id number] Job ID [id number] Jul 11, 2017 13:36
[2017-07-11] MEDS: DULoxetine 30mg cap ORAL SCH (14:23)
[2017-07-11] MEDS ORDERED: cloNIDine 0.2mg Tab ORAL PRN (16:30)
--- NOTE | 2017-07-11 16:30 | Cardiac Electrophysiology PN ---
Subjective Subjective [id number] Objective Last 24 Hour Vital Signs Date Time Temp Pulse Resp B/P (MAP) Pulse Ox O2 Delivery O2 Flow Rate FiO2 07/11/17 12:00 97.9 88 18 151/119 96 Room Air 97.9 07/11/17 10:15 166/108 07/11/17 10:00 100 166/108 07/11/17 08:00 97.7 108 18 169/109 97 Room Air 97.7 07/11/17 07:01 150/117 07/11/17 04:00 98.0 107 19 150/117 92 Room Air 98.0 07/11/17 00:00 97.7 92 19 167/106 99 Room Air 97.7 07/10/17 23:49 87 16 168/99 99 Room Air 07/10/17 23:18 87 16 168/99 99 Room Air 07/10/17 22:09 178/104 07/10/17 18:11 71 16 145/99 99 Room Air 07/10/17 17:45 71 16 07/10/17 16:47 97.1 71 16 155/129 99 Room Air 97.2 Intake and Output 07/10/17 07/11/17 19:00 07:00 Intake Total 0 ml 450 ml Balance 0 ml 450 ml Intake Oral 0 ml 450 ml # Voids 2 Laboratory Tests Test 07/10/17 21:30 07/11/17 10:40 White Blood Count 5.9 K/UL (4.8-10.8) 7.6 K/UL (4.8-10.8) Red Blood Count 4.82 M/UL (4.70-6.10) 4.64 M/UL (4.70-6.10) L Hemoglobin 15.0 G/DL (14.2-18.0) 14.4 G/DL (14.2-18.0) Hematocrit 43.3 % (42.0-52.0) 41.6 % (42.0-52.0) L Mean Corpuscular Volume 90 FL (80-99) 90 FL (80-99) Mean Corpuscular Hemoglobin 31.1 PG (27.0-31.0) H 31.1 PG (27.0-31.0) H Mean Corpuscular Hemoglobin Concent 34.6 G/DL (32.0-36.0) 34.7 G/DL (32.0-36.0) Red Cell Distribution Width 12.7 % (11.6-14.8) 13.0 % (11.6-14.8) Platelet Count 274 K/UL (150-450) 313 K/UL (150-450) Mean Platelet Volume 6.3 FL (6.5-10.1) L 5.9 FL (6.5-10.1) L Neutrophils (%) (Auto) 54.2 % (45.0-75.0) 76.1 % (45.0-75.0) H Lymphocytes (%) (Auto) 35.0 % (20.0-45.0) 15.4 % (20.0-45.0) L Monocytes (%) (Auto) 8.2 % (1.0-10.0) 8.0 % (1.0-10.0) Eosinophils (%) (Auto) 1.7 % (0.0-3.0) 0.0 % (0.0-3.0) Basophils (%) (Auto) 0.9 % (0.0-2.0) 0.4 % (0.0-2.0) Sodium Level 140 MMOL/L (136-145) 136 MMOL/L (136-145) Potassium Level 3.6 MMOL/L (3.5-5.1) 3.9 MMOL/L (3.5-5.1) Chloride Level 102 MMOL/L (98-107) 104 MMOL/L (98-107) Carbon Dioxide Level 32 MMOL/L (21-32) 27 MMOL/L (21-32) Anion Gap 7 mmol/L (5-15) 6 mmol/L (5-15) Blood Urea Nitrogen 19 mg/dL (7-18) H 26 mg/dL (7-18) H Creatinine 1.3 MG/DL (0.55-1.30) 1.4 MG/DL (0.55-1.30) H Estimat Glomerular Filtration Rate > 60 mL/min (>60) > 60 mL/min (>60) Glucose Level 89 MG/DL (74-106) 121 MG/DL (74-106) H Calcium Level 9.7 MG/DL (8.5-10.1) 9.4 MG/DL (8.5-10.1) Total Bilirubin 0.4 MG/DL (0.2-1.0) 0.3 MG/DL (0.2-1.0) Aspartate Amino Transf (AST/SGOT) 29 U/L (15-37) 23 U/L (15-37) Alanine Aminotransferase (ALT/SGPT) 55 U/L (12-78) 47 U/L (12-78) Alkaline Phosphatase 100 U/L (46-116) 98 U/L (46-116) Total Creatine Kinase 176 U/L (26-308) Creatine Kinase MB 2.2 NG/ML (0.0-3.6) Creatine Kinase MB Relative Index 1.2 Troponin I 0.005 ng/mL (0.000-0.056) Total Protein 6.7 G/DL (6.4-8.2) 6.3 G/DL (6.4-8.2) L Albumin 3.5 G/DL (3.4-5.0) 3.3 G/DL (3.4-5.0) L Globulin 3.2 g/dL 3.0 g/dL Albumin/Globulin Ratio 1.1 (1.0-2.7) 1.1 (1.0-2.7) Triglycerides Level 58 MG/DL (30-150) Cholesterol Level 206 MG/DL (< 200) H LDL Cholesterol 130 mg/dL (<100) H HDL Cholesterol 64 MG/DL (40-60) H Cholesterol/HDL Ratio 3.2 (3.3-4.4) L Vitamin B12 Level 714 PG/ML (193-986) ELIANA SWANN Jul 11, 2017 16:30
--- NOTE | 2017-07-11 16:52 | Diagnostic Imaging Report ---
Indication: Reason For Exam: AMS Technique: sagittal T1 fast spin echo, axial T1 and T2 FLAIR PROPELLER, sagittal T2 FLAIR PROPELLER, axial T2 FS PROPELLER, T2* GRE, axial diffusion weighted images, post contrast axial and coronal T1 FLAIR PROPELLER images. ADC and exponential ADC maps generated Comparison: 11/13/2016 Findings: Right cerebral peduncle, bilateral convexity deep white matter T2 hyperintensities are similar in extent to the previous study. No abnormal areas of restricted diffusion to suggest acute infarction or active demyelination. No acute hemorrhage or edema. No mass effect nor midline shift. No abnormal contrast enhancement. Again demonstrated is age-related enlargement of the ventricles and extra axial CSF spaces.. Visualized orbits and sinuses are unremarkable. Vascular flow voids are preserved. Impression: Periventricular and right cerebral peduncular increased T2 signal, likely representing demyelination plaques given known history of multiple sclerosis. Periventricular deep white matter ischemic change also a possibility. No abnormal contrast enhancement or diffusion abnormality to suggest active demyelinization. Findings are unchanged from the previous study of 11/13/2016 Age-related volume loss, also previously demonstrated Negative for acute intracranial bleed, mass effect, infarct, or contrast enhancing lesion
--- NOTE | 2017-07-11 17:58 | Diagnostic Imaging Report ---
Indication: Neck and back pain, leg weakness, history of multiple sclerosis Technique: Sagittal T1 FLAIR PROPELLER, sagittal T2 PROPELLOR, sagittal STIR, axial T2 PROPELLER, axial 3D COSMIC ASPIR images were obtained through the cervical spine. Pre and postcontrast sagittal and axial T1 fat-saturated images also obtained. Comparison: 11/13/2016 Findings: Again demonstrated are high T2 signal lesions in the proximal cervical spinal cord, extending from the foramen right to the posterior aspect of C3. Unchanged in number and distribution but slightly more apparent on the previous exam. There is subtle increased T2 signal posterior to C7 and T1,, also reported previously. This is on the left lateral aspect of the cord and is more conspicuous on the sagittal images. Vertebral body alignment is normal. Vertebral body marrow signal is preserved. At C2-3, no significant disc bulge or protrusion, disc space narrowing, or spinal or neural foraminal stenosis. At C3-4, no significant disc bulge or protrusion, spinal stenosis, or neural foraminal stenosis. There is moderate bilateral neural foraminal stenosis. At C4-5, there is mild degenerative disc narrowing. Previously demonstrated paracentral protrusion and annular fissure is not appreciated on the current exam. Facet arthrosis results in moderate narrowing of the bilateral neural foramina. There is mild circumferential annular bulge, which does not significantly narrow the spinal canal. At C5-6, there is mild degenerative disc narrowing. There is moderate narrowing of the bilateral neural foramina due to facet arthrosis. There is minimal circumferential annular bulge, which does not significantly compromise the spinal canal. At C6-7, there is mild to moderate degenerative disc narrowing. There is mild to moderate narrowing of the bilateral neural foramina. No significant disc bulge or protrusion or spinal canal stenosis. At C7-T1, no significant disc bulge or protrusion or disc space narrowing. No spinal or neural foraminal stenosis Postcontrast images do not demonstrate any significant contrast enhancement. The axial postcontrast images are somewhat degraded by motion artifact, however. Included extraspinal soft tissues are unremarkable. Impression: High T2 signal foci in the cord, as detailed above, likely representing multiple sclerosis plaques. These are unchanged from 11/13/2016. No contrast enhancement to suggest active demyelination or other acute abnormality Multilevel degenerative changes, as detailed above, overall similar to the previous exam, except that the paracentral disc protrusion at C4-5 is much less evident
--- NOTE | 2017-07-11 18:23 | Diagnostic Imaging Report ---
Indication: Back and neck pain, leg weakness, history of multiple sclerosis Technique: Sagittal T1, T2, STIR, axial T1 and T2, pre and postcontrast sagittal and axial fat saturated T1 weighted images of the thoracic spine Comparison: June 11, 2016 Findings: Again demonstrated are multiple foci of T2 signal hyperintensity throughout the thoracic spinal cord. Imaging of the thoracic cord is somewhat less optimal on the current sagittal images and previously, so these are less well demonstrated. Again demonstrated is abnormal signal signal in the left side of the cord posterior to the cervical thoracic junction, also evident previously. Abnormal central cord signal posterior to T5 there is unchanged from previously. Focus of abnormal cord signal just to left of midline at T7 is equivocally more evident on the current axial images than previously, although was evident on the prior STIR images. Abnormal cord signal from T8 through T9 appears slightly more extensive than on the previous study on the axial images, difficult to compare on the sagittal images. Abnormal cord signal at T10 and T11 appears similar. Note that this enhanced previously, is not seen to enhance currently No definite contrast enhancement is demonstrated, although the postcontrast images are of suboptimal quality.. Extruded disc fragment at T7-8 on the left is unchanged, impinges slightly on the left anterolateral aspect of the cord but does not significantly narrow the spinal canal. The disc spaces are preserved. Superior endplate intravertebral disc herniation at T12 is unchanged, with a tiny focus of enhancement again demonstrated Vertebral body marrow signal is otherwise normal. Vertebral body heights are preserved. The included extraspinal soft tissues are unremarkable Impression: Extensive T2 signal abnormality throughout the thoracic spinal cord, most likely multiple sclerosis plaques given the stated clinical history of such. Although comparison is difficult, findings are grossly unchanged from prior study of 11/13/2016 No contrast enhancement to suggest active plaque. Note that previously demonstrated contrast-enhancing lesion at T10 no longer enhances. Minimal left anterolateral disc extrusion at T7-8, unchanged from a probably not significant
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
[2017-07-12] VITALS: BP 138/90
[2017-07-12] MEDS: HYDROmorphone 1mg/ml Carpuject IM PRN ×6 (02:33→22:49)
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
[2017-07-12 04:00] VITALS: BP 150/100
[2017-07-12] MEDS: HydrALAZINE 25mg tab ORAL PRN ×2 (04:46→12:16)
[2017-07-12] MEDS: DiphenhydrAMINE 50mg/ml Inj IVP PRN ×3 (06:40→18:55)
[2017-07-12 08:00] VITALS: BP 148/112
[2017-07-12] MEDS ORDERED: Solu-MEDROL 125mg Inj IVP SCH (09:00)
[2017-07-12] MEDS: DULoxetine 30mg cap ORAL SCH (09:32)
[2017-07-12] MEDS: Vitamin D 1000 IU Tab ORAL SCH (09:33)
[2017-07-12] MEDS: Lisinopril 20mg tab ORAL SCH (09:33)
[2017-07-12] MEDS: Heparin 5000 units/ml inj SUBQ SCH ×3 (09:34→17:33)
[2017-07-12] MEDS: Magnesium Oxide 400mg tab ORAL SCH ×3 (10:05→17:31)
[2017-07-12 12:00] VITALS: BP 162/126
--- NOTE | 2017-07-12 12:13 | Neurology Progress Note ---
Interim History Interim History ROS Limited/Unobtainable: No Complaints: feel better Events: stable Objective Physical Exam Last Vital Signs Date Time Temp Pulse Resp B/P (MAP) Pulse Ox O2 Delivery O2 Flow Rate FiO2 07/12/17 09:33 148/112 07/12/17 09:32 97 07/12/17 08:00 97.7 20 98 Room Air 97.7 General: well developed, well nourished, no acute distress Head: normocophalic, atraumatic Neck: no rigidity, other EENT: benign Neurologic Exam Mental Status: awake, alert, oriented x4, normal cognition, good mathematical skills, normal recent memory, normal remote memory, preserved visuospatial function Speech: normal speech, no dysarthia Language: normal language, no aphasia Cranial Nerve II: fundus normal, visual keller, no papilledema Cranial Nerves III, IV, : PERRLA, EOMI, pupils Cranial Nerve V: normal facial sensations, temporales function normal, masseters function normal, pterygoids function normal Cranial Nerve VII: normal facial expressions Cranial Nerve VIII: normal hearing, no nystagmus Cranial Nerve IX: normal palate elevation, gag response Cranial Nerve X: no voice hoarseness Cranial Nerve XI: SCM symmetric, trapezii function normal Cranial Nerve XII: tongue midline, no tongue atrophy/fasciculations Motor System: normal muscle tone, strength 5/5, no involuntary movement, no muscle wasting, other - left leg spastic Sensory: normal pinprick, normal light touch, normal position sense, normal graphesthesia Coordination: normal finger to nose bilaterally, normal heel to watters bilaterally, negative Romberg test Deep Tendon Reflexes: 1+ bicep (L), 1+ bicep (R), 1+ tricep (L), 1+ tricep (R) , 1+ brachioradialis (L), 1+ brachioradialis (R), 1+ knee (R), 1+ ankle (R), 2+ ankle (L), 3+ knee (L) Reflexes: flexor plantar (R), mute plantar (L) Stance: normal Gait: stable, normal regular, heel + toe gait Impression/Recommendations Problems: (1) Multiple sclerosis, secondary progressive (2) Opiate dependence (3) Accelerated hypertension Status: stable, unchanged Recommendations #[id number] MRI brain C -T spine no acute demyelination off steroids pt/ot baclofen 5mg tid MARKOS CROOKS Jul 12, 2017 12:13
--- NOTE | 2017-07-12 15:49 | Cardiac Electrophysiology PN ---
Assessment/Plan Assessment/Plan 1. Accelerated hypertension. Despite Norvasc 10 mg daily and lisinopril 10 mg b.i.d. Add Lopressor 50 bid 2. Chest pain, atypical. Troponin is negative. The patient has had negative stress test in the past. 3. Multiple sclerosis exacerbation, on Solu-Medrol, gabapentin and Cymbalta. Subjective Subjective BP really high. Still has headache Objective Last 24 Hour Vital Signs Date Time Temp Pulse Resp B/P (MAP) Pulse Ox O2 Delivery O2 Flow Rate FiO2 07/12/17 12:16 162/126 07/12/17 12:00 97.3 95 20 162/126 98 Room Air 97.3 07/12/17 09:33 148/112 07/12/17 09:32 97 148/112 07/12/17 08:00 97.7 97 20 148/112 98 Room Air 97.7 07/12/17 04:46 150/100 07/12/17 04:00 97.5 110 20 150/100 98 Room Air 97.5 07/12/17 00:00 98.4 104 18 138/90 96 Room Air 98.4 07/11/17 20:38 158/113 07/11/17 20:00 98.3 99 140/98 98.3 07/11/17 16:00 97.3 96 20 145/110 100 97.3 Intake and Output 07/11/17 07/12/17 19:00 07:00 Intake Total 240 ml 720 ml Balance 240 ml 720 ml Intake Oral 240 ml 720 ml # Voids 6 3 Objective HEAD AND NECK: Showed no JVD. LUNGS: Clear. CARDIOVASCULAR: Shows regular S1 and S2 with no gallop or murmur. ABDOMEN: Soft. EXTREMITIES: No pitting edema. ELIANA SWANN Jul 12, 2017 15:49
[2017-07-12 16:00] VITALS: BP 154/111
[2017-07-12] MEDS: Norco 5mg/325mg tab ORAL PRN (17:20)
[2017-07-12 20:00] VITALS: BP 174/102
[2017-07-12] MEDS: Metoprolol Tartrate 50mg tab ORAL SCH (21:34)
[2017-07-13] VITALS: BP 171/112
[2017-07-13] MEDS: DiphenhydrAMINE 50mg/ml Inj IVP PRN ×3 (01:38→17:44)
[2017-07-13] MEDS: Norco 5mg/325mg tab ORAL PRN ×2 (01:44→15:26)
[2017-07-13] MEDS: HYDROmorphone 1mg/ml Carpuject IM PRN ×5 (03:55→22:01)
[2017-07-13 04:00] VITALS: BP 169/125
[2017-07-13 08:00] VITALS: BP 156/117
[2017-07-13] MEDS: Lisinopril 20mg tab ORAL SCH (09:00)
[2017-07-13] MEDS: DULoxetine 30mg cap ORAL SCH (09:00)
[2017-07-13] MEDS: Vitamin D 1000 IU Tab ORAL SCH (09:00)
[2017-07-13] MEDS: Magnesium Oxide 400mg tab ORAL SCH ×3 (09:01→17:44)
[2017-07-13] MEDS: Heparin 5000 units/ml inj SUBQ SCH ×3 (09:02→17:48)
[2017-07-13] MEDS: Metoprolol Tartrate 50mg tab ORAL SCH ×2 (09:03→22:00)
[2017-07-13 12:00] VITALS: BP 138/116
--- NOTE | 2017-07-13 12:28 | General Progress Note ---
Assessment/Plan Assessment/Plan 1. Multiple sclerosis with exacerbation at this time. The patient has been started on steroids. --> Further management as per Dr. Scott. 2. Left leg pain. Evaluate further with duplex of the lower extremity. --> In addition, the patient is refusing Tylenol, wants to get OxyContin, appears to be exhibiting narcotic-seeking behavior. --> Per Dr. Tani Valladares and Dr. Keene for further monitoring as needed. --> The patient has been seeking medications and Neurology to further comment on condition at this time, recommend following. 3. Pain seeking behavior. He has been seen by Dr. Tani Valladares. -->Further recommendations to follow. If the patient does not appear to be in MS exacerbation, at this time consider discharge as needed. --> major account manager to closely follow. 4. Acute kidney injury. Evaluation with Dr. Matamoros, Nephrology team. Subjective Date patient seen: Jul 12, 2017 Constitutional: Denies: no symptoms, chills, diaphoresis, fever, malaise, weakness, other HEENT: Denies: no symptoms, eye pain, blurred vision, tearing, double vision, ear pain, ear discharge, nose pain, nose congestion, throat pain, throat swelling, mouth pain, mouth swelling, other Cardiovascular: Denies: no symptoms, chest pain, edema, irregular heart rate, lightheadedness, palpitations, syncope, other Respiratory: Denies: no symptoms, cough, orthopnea, shortness of breath, SOB with excertion, SOB at rest, sputum, stridor, wheezing, other Gastrointestinal/Abdominal: Denies: no symptoms, abdomen distended, abdominal pain, black stools, tarry stools, blood in stool, constipated, diarrhea, difficulty swallowing, nausea, poor appetite, poor fluid intake, rectal bleeding , vomiting, other Genitourinary: Denies: no symptoms, burning, discharge, frequency, flank pain, hematuria, incontinence, pain, urgency, other Neurologic/Psychiatric: Denies: no symptoms, anxiety, depressed, emotional problems, headache, numbness, paresthesia, pre-existing deficit, seizure, tingling, tremors, weakness, other Allergies: Coded Allergies: KETOROLAC (Verified Allergy, Severe, Anaphylaxis, 06/19/15) Subjective On pain control. Resting in bed. Exhibits pain-seeking behavior Objective Last 24 Hour Vital Signs Date Time Temp Pulse Resp B/P (MAP) Pulse Ox O2 Delivery O2 Flow Rate FiO2 07/13/17 09:03 90 156/117 07/13/17 09:00 156/117 07/13/17 08:59 90 156/117 07/13/17 08:00 98.2 90 21 156/117 95 98.2 07/13/17 04:00 98.1 70 21 169/125 95 98.1 07/13/17 00:00 98.0 83 21 171/112 94 98.0 07/12/17 21:34 98 174/102 07/12/17 20:00 98.1 98 21 174/102 95 98.1 07/12/17 16:00 98.0 95 19 154/111 98 Room Air 98.0 07/12/17 12:16 162/126 07/12/17 12:00 97.3 95 20 162/126 98 Room Air 97.3 Intake and Output 07/12/17 07/13/17 20:00 08:00 Intake Total 450 ml Output Total 500 ml Balance -50 ml Intake Oral 450 ml Output Urine Total 500 ml # Voids 2 Height (Feet): 6 Height (Inches): 0.00 Weight (Pounds): 230 Jaime Laughlin Jul 13, 2017 12:28
--- NOTE | 2017-07-13 12:48 | General Progress Note ---
Assessment/Plan Assessment/Plan (1) Multiple Sclerosis (2) Neuropathic pain (3) Cervical DDD (4) Cervical spondylosis (5) Lumbar DDD (6) Lumbar spondylosis (7) Narcotic Dependency Patient will be continued on the Dilaudid. Pt was d/w Dr. Scott and he concurred. Subjective Date patient seen: Jul 13, 2017 Time patient seen: 11:30 - am Allergies: Coded Allergies: KETOROLAC (Verified Allergy, Severe, Anaphylaxis, 06/19/15) Subjective Constitutional: Reports: weakness, Denies: chills, diaphoresis, fever, malaise , no symptoms, other HEENT: Denies: blurred vision, double vision, ear discharge, ear pain, eye pain , mouth pain, mouth swelling, no symptoms, nose congestion, nose pain, other, tearing, throat pain, throat swelling Cardiovascular: Denies: edema, irregular heart rate, lightheadedness, no symptoms, other, palpitations, syncope Respiratory: Denies: SOB at rest, SOB with excertion, cough, no symptoms, orthopnea, other, shortness of breath, sputum, stridor, wheezing Gastrointestinal/Abdominal: Denies: abdomen distended, abdominal pain, black stools, blood in stool, constipated, diarrhea, difficulty swallowing, nausea, no symptoms, other, poor appetite, poor fluid intake, rectal bleeding, tarry stools, vomiting Genitourinary: Denies: burning, discharge, flank pain, frequency, hematuria, incontinence, no symptoms, other, pain, urgency Neurologic/Psychiatric: Reports: weakness, Denies: anxiety, depressed, emotional problems, headache, no symptoms, numbness, other, paresthesia, pre- existing deficit, seizure, tingling, tremors Endocrine: Denies: excessive sweating, flushing, increased hunger, increased thirst, increased urine, intolerance to cold, intolerance to heat, no symptoms, other, unexplained weight gain, unexplained weight loss Hematologic/Lymphatic: Denies: anemia, easy bleeding, easy bruising, no symptoms, other Subjective Patient is in bed and pain is at a moderate level on the Dilaudid. He has no new complaints. Objective Last 24 Hour Vital Signs Date Time Temp Pulse Resp B/P (MAP) Pulse Ox O2 Delivery O2 Flow Rate FiO2 07/13/17 09:03 90 156/117 07/13/17 09:00 156/117 07/13/17 08:59 90 156/117 07/13/17 08:00 98.2 90 21 156/117 95 98.2 07/13/17 04:00 98.1 70 21 169/125 95 98.1 07/13/17 00:00 98.0 83 21 171/112 94 98.0 07/12/17 21:34 98 174/102 07/12/17 20:00 98.1 98 21 174/102 95 98.1 07/12/17 16:00 98.0 95 19 154/111 98 Room Air 98.0 Intake and Output 07/12/17 07/13/17 19:00 07:00 Intake Total 450 ml Output Total 500 ml Balance -50 ml Intake Oral 450 ml Output Urine Total 500 ml # Voids 2 Height (Feet): 6 Height (Inches): 0.00 Weight (Pounds): 230 Objective General Appearance: no apparent distress, alert EENT: PERRL/EOMI, normal ENT inspection Neck: non-tender, normal alignment Cardiovascular: normal peripheral pulses, normal rate, regular rhythm Respiratory/Chest: lungs clear, normal breath sounds Abdomen: non tender, soft Extremities: non-tender Edema: no edema noted Arm (L), no edema noted Arm (R), no edema noted Leg (L), no edema noted Leg (R), no edema noted Pedal (L), no edema noted Pedal (R), no edema noted Generalized Neurologic: alert, oriented x 3 Skin: warm/dry MAYCOL WILEY Jul 13, 2017 12:48
[2017-07-13] MEDS: HydrALAZINE 25mg tab ORAL PRN (13:26)
[2017-07-13 16:00] VITALS: BP 146/101
[2017-07-13] MEDS ORDERED: Zolpidem 5mg tab ORAL PRN (16:30)
[2017-07-13] MEDS ORDERED: Bisacodyl EC 5mg tab ORAL PRN (16:30)
--- NOTE | 2017-07-13 16:35 | Cardiology Report ---
APPROVED REPORT EKG Measurement Heart [id number] Normal sinus rhythm Septal infarct, age undetermined Abnormal ECG
[2017-07-13 20:00] VITALS: BP 149/97
[2017-07-14] VITALS: BP 127/80
[2017-07-14] MEDS: DiphenhydrAMINE 50mg/ml Inj IVP PRN ×2 (02:04→09:02)
[2017-07-14] MEDS: HYDROmorphone 1mg/ml Carpuject IM PRN ×3 (02:05→09:02)
[2017-07-14 04:00] VITALS: BP 151/74
[2017-07-14] MEDS: Norco 5mg/325mg tab ORAL PRN (05:14)
--- NOTE | 2017-07-14 08:43 | General Progress Note ---
Assessment/Plan Assessment/Plan (1) Multiple Sclerosis (2) Neuropathic pain (3) Cervical DDD (4) Cervical spondylosis (5) Lumbar DDD (6) Lumbar spondylosis (7) Narcotic Dependency Patient will be continued on the Dilaudid. Pt was d/w Dr. Scott and he concurred. Subjective Date patient seen: Jul 14, 2017 Time patient seen: 07:45 - am Allergies: Coded Allergies: KETOROLAC (Verified Allergy, Severe, Anaphylaxis, 06/19/15) Subjective Constitutional: Reports: weakness, Denies: chills, diaphoresis, fever, malaise , no symptoms, other HEENT: Denies: blurred vision, double vision, ear discharge, ear pain, eye pain , mouth pain, mouth swelling, no symptoms, nose congestion, nose pain, other, tearing, throat pain, throat swelling Cardiovascular: Denies: edema, irregular heart rate, lightheadedness, no symptoms, other, palpitations, syncope Respiratory: Denies: SOB at rest, SOB with excertion, cough, no symptoms, orthopnea, other, shortness of breath, sputum, stridor, wheezing Gastrointestinal/Abdominal: Denies: abdomen distended, abdominal pain, black stools, blood in stool, constipated, diarrhea, difficulty swallowing, nausea, no symptoms, other, poor appetite, poor fluid intake, rectal bleeding, tarry stools, vomiting Genitourinary: Denies: burning, discharge, flank pain, frequency, hematuria, incontinence, no symptoms, other, pain, urgency Neurologic/Psychiatric: Reports: weakness, Denies: anxiety, depressed, emotional problems, headache, no symptoms, numbness, other, paresthesia, pre- existing deficit, seizure, tingling, tremors Endocrine: Denies: excessive sweating, flushing, increased hunger, increased thirst, increased urine, intolerance to cold, intolerance to heat, no symptoms, other, unexplained weight gain, unexplained weight loss Hematologic/Lymphatic: Denies: anemia, easy bleeding, easy bruising, no symptoms, other Subjective Patient reports that his pain has been severe and tolerated on the Dilaudid. He has no new complaints. Objective Last 24 Hour Vital Signs Date Time Temp Pulse Resp B/P (MAP) Pulse Ox O2 Delivery O2 Flow Rate FiO2 07/14/17 04:00 97.4 68 22 151/74 96 97.4 07/14/17 00:00 97.6 71 21 127/80 94 97.6 07/13/17 22:00 67 149/97 07/13/17 20:00 97.8 67 21 149/97 100 97.8 07/13/17 16:00 98.3 81 20 146/101 95 98.3 07/13/17 13:26 160/100 07/13/17 12:00 97.0 77 19 138/116 95 97.0 07/13/17 09:03 90 156/117 07/13/17 09:00 156/117 07/13/17 08:59 90 156/117 Intake and Output 07/13/17 07/14/17 19:00 07:00 Intake Total 600 ml 450 ml Output Total 300 ml Balance 600 ml 150 ml Intake Oral 600 ml 450 ml Output Urine Total 300 ml # Voids 4 2 Height (Feet): 6 Height (Inches): 0.00 Weight (Pounds): 230 Objective General Appearance: no apparent distress, alert EENT: PERRL/EOMI, normal ENT inspection Neck: non-tender, normal alignment Cardiovascular: normal peripheral pulses, normal rate, regular rhythm Respiratory/Chest: lungs clear, normal breath sounds Abdomen: non tender, soft Extremities: non-tender Edema: no edema noted Arm (L), no edema noted Arm (R), no edema noted Leg (L), no edema noted Leg (R), no edema noted Pedal (L), no edema noted Pedal (R), no edema noted Generalized Neurologic: alert, oriented x 3 Skin: warm/dry MAYCOL WILEY Jul 14, 2017 08:43
[2017-07-14] MEDS ORDERED: Lactulose 20gm/30ml UDC ORAL PRN (09:00)
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
--- NOTE | 2017-07-17 08:36 | Discharge Summary ---
Discharge Summary Hospital Course Date of Admission Jul 10, 2017 at 19:47 Date of Discharge Jul 14, 2017 at 09:35 Admitting Diagnosis Multiple sclerosis exacerbation- HPI Teto Granda is a 52 year old male who was admitted on Jul 10, 2017 at 19:47 for Multiple Sclerosis Exacerbation Hospital Course dc summary #[id number] Discharge Discharge Disposition Patient signed AMA Discharge Diagnoses: Discharge Instructions Discharge Instructions Special Instructions I have been assigned to complete a D/C Summary on this account. I was not involved in the patient management Reena Vanegas NP ([facility]) Jul 17, 2017 08:36
--- NOTE | 2017-07-18 | Discharge Summary 2 SIG ---
DATE OF ADMISSION: 07/10/2017 DATE OF SIGNING AGAINST MEDICAL ADVICE: 07/14/2017 REASON FOR ADMISSION: 52-year-old male with past medical history of hypertension, CVA, multiple sclerosis, presented with exacerbation of left lower extremity weakness. The patient initially was diagnosed with multiple sclerosis in 2002. The patient presented with previously diagnosed remitting-relapsing form of multiple sclerosis. Most recent MRI studies of the cervical, thoracic, lumbar spine, and brain were done in 2015, and confirming presence of extensive demyelinating process. Upon evaluation in the emergency department, blood pressure was elevated - 155/109. EKG showed normal sinus rhythm, no acute ischemic changes. No leukocytosis. Troponin was negative. The patient was given high dose of steroid shot in the emergency department and was admitted with exacerbation of multiple sclerosis, pain-seeking behavior, and left lower extremity pain. HOSPITAL COURSE: The patient admitted. Neurology consult was requested. Neurologist had seen and evaluated the patient and subsequently ordered MRI of the brain and MRI of the cervical and thoracic spine. Both MRI of C-spine and MRI of T-spine showed demyelinating plaque unchanged from 11/13/2016, multilevel degenerative changes were noted. The patient given additional two high doses of the steroid and then started tapering down. Neurologist started on magnesium oxide and vitamin D to decrease cramping. Baclofen added to existing regimen for muscle spasm. Neurontin dose was increased. PT and OT was ordered. Pain specialist consulted. Pain management was provided as per pain specialist recommendations. Cardiology had seen the patient for initially complaining of chest pain in the emergency department. Troponin was negative. Previously done stress test was negative, and the patient did not complain further of the chest pain. According to fermentologist, chest pain was atypical, likely due to the exacerbation of MS. Blood pressure was uncontrolled and was managed with beta-josette, calcium-channel josette, and BARON inhibitor as well as the clonidine as needed. Blood pressure normalized with current regimen. DVT prophylaxis provided. On 07/14/2017, the patient stated that he was feeling better and wanted to sign against medical advice. The risks and consequences of signing against medical advice were discussed with the patient. The patient verbalized understanding, but signed the AMA form and left. FINAL DIAGNOSES: 1. Multiple sclerosis, probably secondary progressive exacerbation. 2. Chronic pain syndrome, opiate dependent. 3. Chronic cephalalgia, muscle contraction type. 4. Hypertensive urgency. 5. Atypical chest pain. 6. Neuropathic pain. 7. Cervical DDD. 8. Lumbar DDD. 9. Cervical spondylosis. 10. Lumbar spondylosis. Dennis Hoffman D.O. I have been assigned to dictate discharge summary on this account and I was not involved in the patient's management. Reena Bakerkera N.PKassandra DR: Garrett JOB#: [id number] CC: PIERCE
== END 2017-07-14 09:35 | disposition left against medical advice (07) | DRG 59 ==
LOC: EDBD 16:50 → EMR 18:36 → 4E 19:47 → EDBEDREQ 19:52
DX: G35 Multiple sclerosis (principal); N17.9 Acute kidney failure, unspecified; F11.20 Opioid dependence, uncomplicated; G62.9 Polyneuropathy, unspecified; I10 Essential (primary) hypertension; Z88.8 Allergy status to other drugs, medicaments and biological substances; G89.4 Chronic pain syndrome; M50.30 Other cervical disc degeneration, unspecified cervical region; M51.36 Other intervertebral disc degeneration, lumbar region; M47.892 Other spondylosis, cervical region; R07.89 Other chest pain; Z76.5 Malingerer [conscious simulation]; G44.89 Other headache syndrome
CPT/HCPCS: 36415; 70553; 72156; 72157; 80053; 80061; 82550; 82553; 82607; 84484; 85025; 93005; 99285; A9585

== ENCOUNTER 2017-08-19 15:16 | Emergency (ER) | payer MEDICARE, OTHER ==
[~2017-08-19] VITALS: Ht 182.9 cm; Wt 102.1 kg
[2017-08-19 15:28] VITALS: BP 172/105
--- NOTE | 2017-08-19 16:35 | Diagnostic Imaging Report ---
Indication: Chest pain Technique: One view of the chest Comparison: 02/11/2017 Findings: Lungs and pleural spaces are clear. The heart size is upper limits of normal. The aorta is tortuous and ectatic Impression: No acute process
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
[2017-08-19 18:00] VITALS: BP 173/107
[2017-08-19] MEDS ORDERED: oxyCODONE HCL/Acetaminophen 5/325mg ORAL ONE (18:15)
[2017-08-19 18:39] LABS: BASOPHILS % (AUTO) 1.2 % (0.0-2.0); EOSINOPHILS % (AUTO) 1.4 % (0.0-3.0); HEMATOCRIT 42.4 % (42.0-52.0); HEMOGLOBIN 14.5 G/DL (14.2-18.0); LYMPHOCYTES % (AUTO) 26.1 % (20.0-45.0); MEAN CORPUSCULAR VOLUME 92 FL (80-99); MONOCYTES % (AUTO) 8.1 % (1.0-10.0); NEUTROPHILS % (AUTO) 63.2 % (45.0-75.0); PLATELET COUNT 258 K/UL (150-450); RED BLOOD COUNT 4.63 M/UL (4.70-6.10); RED CELL DISTRIBUTION WIDTH 13.3 % (11.6-14.8); WHITE BLOOD COUNT 9.9 K/UL (4.8-10.8)
[2017-08-19 18:44] LABS: ANION GAP 8 mmol/L (5-15); BLOOD UREA NITROGEN 27 mg/dL (7-18); CALCIUM 8.9 MG/DL (8.5-10.1); CARBON DIOXIDE 29 MMOL/L (21-32); CHLORIDE 108 MMOL/L (98-107); POTASSIUM 3.9 MMOL/L (3.5-5.1); SODIUM 145 MMOL/L (136-145)
[2017-08-19 18:56] LABS: ALANINE AMINOTRANSFERASE 67 U/L (12-78); ALBUMIN 3.4 G/DL (3.4-5.0); ALBUMIN/GLOBULIN RATIO 1.4 (1.0-2.7); ALKALINE PHOSPHATASE 100 U/L (46-116); ASPARTATE AMINO TRANSFERASE 18 U/L (15-37); BILIRUBIN,TOTAL 0.3 MG/DL (0.2-1.0); CKMB 1.6 NG/ML (0.0-3.6); CREATINE KINASE 65 U/L (26-308)
[2017-08-19 19:24] VITALS: BP 173/107
--- NOTE | 2017-08-20 16:52 | Cardiology Report ---
APPROVED REPORT EKG Measurement Heart [id number] [id number] Normal sinus rhythm Anterior infarct, age undetermined Abnormal ECG
== END 2017-08-19 19:28 | disposition home or self-care (01) ==
LOC: EMR 16:25
DX: R07.89 Other chest pain (principal); G35 Multiple sclerosis; I25.10 Atherosclerotic heart disease of native coronary artery without angina pectoris; I10 Essential (primary) hypertension; Z86.73 Personal history of transient ischemic attack (TIA), and cerebral infarction without residual deficits
CPT/HCPCS: 36415; 71045; 80053; 82550; 82553; 84484; 85025; 93005; 99283

== ENCOUNTER 2017-08-20 10:16 | Inpatient (IN) | payer MEDICARE, OTHER ==
[~2017-08-20] VITALS: Ht 182.9 cm; Wt 102.1 kg
[2017-08-20] MEDS ORDERED: DiphenhydrAMINE 50mg/ml Inj IVP ONE (10:45)
[2017-08-20] MEDS ORDERED: HYDROmorphone 1mg/ml Carpuject IVP ONE (10:45)
[2017-08-20 11:49] LABS: EOSINOPHILS % (AUTO) 2.2 % (0.0-3.0); HEMATOCRIT 41.3 % (42.0-52.0); HEMOGLOBIN 14.1 G/DL (14.2-18.0); LYMPHOCYTES % (AUTO) 24.4 % (20.0-45.0); MEAN CORPUSCULAR VOLUME 93 FL (80-99); MONOCYTES % (AUTO) 8.8 % (1.0-10.0); NEUTROPHILS % (AUTO) 63.6 % (45.0-75.0); PLATELET COUNT 230 K/UL (150-450); RED BLOOD COUNT 4.45 M/UL (4.70-6.10); RED CELL DISTRIBUTION WIDTH 13.3 % (11.6-14.8); WHITE BLOOD COUNT 7.8 K/UL (4.8-10.8)
[2017-08-20 11:54] LABS: ANION GAP 10 mmol/L (5-15); BLOOD UREA NITROGEN 19 mg/dL (7-18); CALCIUM 8.9 MG/DL (8.5-10.1); CARBON DIOXIDE 25 MMOL/L (21-32); CHLORIDE 104 MMOL/L (98-107); POTASSIUM 4.2 MMOL/L (3.5-5.1); SODIUM 138 MMOL/L (136-145)
[2017-08-20 12:07] LABS: ALANINE AMINOTRANSFERASE 70 U/L (12-78); ALBUMIN 3.4 G/DL (3.4-5.0); ALBUMIN/GLOBULIN RATIO 1.1 (1.0-2.7); ALKALINE PHOSPHATASE 91 U/L (46-116); ASPARTATE AMINO TRANSFERASE 29 U/L (15-37); BILIRUBIN,TOTAL 0.3 MG/DL (0.2-1.0); CKMB 2.1 NG/ML (0.0-3.6); CREATINE KINASE 191 U/L (26-308)
[2017-08-20 12:09] VITALS: BP 177/111
[2017-08-20] MEDS ORDERED: Labetalol 5mg/ml 20ml vial IV ONE (12:45)
[2017-08-20 14:55] VITALS: BP 148/95
--- NOTE | 2017-08-20 16:00 | Emergency Room Report ---
History of Present Illness General Chief Complaint: General Complaint Source: Patient Present Illness HPI Patient has a history of multiple sclerosis hypertension poorly controlled and chronic pain. Patient presented emergency department today complaining of lower back pain associated with a MS flare. Patient denies any fever chest pain or shortness of breath. States that he is able to control his blood pressure has a significant headache. Symptoms highlysevere.Patient' sprimarycarephysician'sDr. Barbara Quinnandactuallyrecommendedpatientcometotheemergencydepartmentforfurthereval uation.Symptomsnotedtobehighlysevere.No other modifying factors. No other associated signs and symptoms. No other complaints were noted. Allergies: Coded Allergies: KETOROLAC (Verified Allergy, Severe, Anaphylaxis, 06/19/15) Patient History Past Medical History: HTN, CAD, CVA/TIA PMH Narrative multiple sclerosis, chronic pain Past Surgical History: none Pertinent Family History: none Social History: Denies: smoking, alcohol use, drug use Reviewed Nursing Documentation: PMH: Agreed; PSxH: Agreed Nursing Documentation-PMH Hx Cardiac Problems: Yes - Coronary artery disease Hx Hypertension: Yes Hx Pacemaker: No Hx Asthma: No Hx COPD: No Hx Diabetes: No Hx Cancer: No Hx Gastrointestinal Problems: No Hx Dialysis: No Hx Cerebrovascular Accident: Yes - 2014 Hx Transient Ischemic Attacks: No Hx Dementia: No Hx Alzheimer's Disease: No Hx Parkinson's Disease: No Hx Meningitis: No Hx Encephalitis: No Hx Seizures: No Hx Epilepsy: No Hx Multiple Sclerosis: Yes Hx Cerebral Palsy: No Hx Amyotrophic Lat Sclerosis: No Hx Guillian-Randolph Syndrome: No Hx Paralysis: No Hx Peripheral Neuropathy: No Hx Spinal Cord Injury: No Hx Head Trauma: No Hx Traumatic Brain Injury: No Hx Memory Loss: No Hx Concentration Difficulty: No Hx Speech Problem: No Hx Tremors: No Hx Vertigo: No Hx Dizziness: No Hx Syncope: Yes Hx Headaches: Yes - SOMETIMES Hx Aphasia: No Hx Dysphasia: No Hx Numbness: Yes - RIGHT HAND Hx Weakness: Yes - ALL OF THE BODY Hx Fatigue: Yes - SLIGHT Hx Neurologic Surgery: No Hx Brain Shunt: No Review of Systems All Other Systems: negative except mentioned in HPI Physical Exam Vital Signs Date Time Temp Pulse Resp B/P (MAP) Pulse Ox O2 Delivery O2 Flow Rate FiO2 08/20/17 10:28 98.1 75 20 205/126 96 Room Air 98.1 Sp02 EP Interpretation: reviewed, normal General Appearance: alert, moderate distress Head: atraumatic Eyes: bilateral eye normal inspection ENT: normal ENT inspection, hearing grossly normal, normal voice Neck: normal inspection, full range of motion, supple, no bony tend Respiratory: normal inspection, lungs clear, normal breath sounds, no respiratory distress, no retraction, no wheezing Cardiovascular #1: regular rate, rhythm, no edema Gastrointestinal: normal inspection, normal bowel sounds, non tender, soft, no guarding, no hernia Genitourinary: no CVA tenderness Musculoskeletal: normal inspection, back normal, normal range of motion Neurologic: normal inspection, alert, responsive, speech normal Psychiatric: normal inspection, judgement/insight normal, mood/affect normal Skin: normal inspection, normal color, no rash Medical Decision Making Diagnostic Impression: Primary Impression: Multiple sclerosis, relapsing-remitting Additional Impressions: Hypertension Chronic back pain Exacerbation of chronic back pain ER Course Patient presents to the emergency department today with generalized weakness lower back pain and hypertension. Differential considerations include hypertensive emergency, hypertensive urgency just name a few.Given the severity of the patient's presentation I felt this is a highly complex patient. This patient required extensive workup. Because this patient's severity of painconcerned about hypertensive emergency. Patient was given labetalol pain medications. Patient's blood pressure did improve. The patient continued to have pain. Laboratory workup was negative. Because patient's presentation case was discussed with Dr. Barbara Ragland recommended patient be admitted. Patient had a critical medical condition which untreated could potentially result in life or limb threatening injury. Total critical care time excluding procedures was approximately 45 minutes. Labs Test 08/20/17 10:36 08/20/17 11:36 Sodium Level 138 MMOL/L (136-145) Potassium Level 4.2 MMOL/L (3.5-5.1) Chloride Level 104 MMOL/L (98-107) Carbon Dioxide Level 25 MMOL/L (21-32) Anion Gap 10 mmol/L (5-15) Blood Urea Nitrogen 19 mg/dL (7-18) Creatinine 1.0 MG/DL (0.55-1.30) Estimat Glomerular Filtration Rate > 60 mL/min (>60) Glucose Level 104 MG/DL (74-106) Calcium Level 8.9 MG/DL (8.5-10.1) Total Bilirubin 0.3 MG/DL (0.2-1.0) Aspartate Amino Transf (AST/SGOT) 29 U/L (15-37) Alanine Aminotransferase (ALT/SGPT) 70 U/L (12-78) Alkaline Phosphatase 91 U/L (46-116) Total Creatine Kinase 191 U/L (26-308) Creatine Kinase MB 2.1 NG/ML (0.0-3.6) Creatine Kinase MB Relative Index 1.0 Troponin I 0.000 ng/mL (0.000-0.056) Total Protein 6.5 G/DL (6.4-8.2) Albumin 3.4 G/DL (3.4-5.0) Globulin 3.1 g/dL Albumin/Globulin Ratio 1.1 (1.0-2.7) White Blood Count 7.8 K/UL (4.8-10.8) Red Blood Count 4.45 M/UL (4.70-6.10) Hemoglobin 14.1 G/DL (14.2-18.0) Hematocrit 41.3 % (42.0-52.0) Mean Corpuscular Volume 93 FL (80-99) Mean Corpuscular Hemoglobin 31.7 PG (27.0-31.0) Mean Corpuscular Hemoglobin Concent 34.1 G/DL (32.0-36.0) Red Cell Distribution Width 13.3 % (11.6-14.8) Platelet Count 230 K/UL (150-450) Mean Platelet Volume 6.7 FL (6.5-10.1) Neutrophils (%) (Auto) 63.6 % (45.0-75.0) Lymphocytes (%) (Auto) 24.4 % (20.0-45.0) Monocytes (%) (Auto) 8.8 % (1.0-10.0) Eosinophils (%) (Auto) 2.2 % (0.0-3.0) Basophils (%) (Auto) 1.0 % (0.0-2.0) EKG Diagnostic Results Rate: normal Rhythm: NSR ST Segments: no acute changes Rhythm Strip Diag. Results EP Interpretation: yes Rate: 76 Rhythm: NSR, no PVC's, no ectopy Chest X-Ray Diagnostic Results Chest X-Ray Diagnostic Results : Chest X-Ray Ordered: Yes # of Views/Limited/Complete: 1 View Indication: Shortness of Breath EP Interpretation: No Interpretation: no consolidation Impression: Other - parenchymal disease Last Vital Signs Date Time Temp Pulse Resp B/P (MAP) Pulse Ox O2 Delivery O2 Flow Rate FiO2 08/20/17 14:55 73 13 148/95 99 Room Air 08/20/17 11:41 98.1 Status: improved Disposition: ADMITTED INPATIENT Condition: Serious Referrals: BARBARA RAGLAND (PCP) LETICIA BRODERICK M.D. Aug 20, 2017 15:59
[2017-08-20 16:53] VITALS: BP 148/106
[2017-08-20] MEDS ORDERED: Miralax 17gm pkt ORAL PRN (18:00)
[2017-08-20] MEDS ORDERED: Metoprolol Succinate XL 50mg tab ORAL SCH (18:15)
[2017-08-20] MEDS ORDERED: Methocarbamol 750mg tab ORAL SCH (18:30)
[2017-08-20] MEDS: D5 1/2NS 1,000 ML IV SCH (19:00)
[2017-08-20] MEDS: cloNIDine 0.2mg Tab ORAL SCH (19:09)
[2017-08-20] MEDS: HydrALAZINE 50mg tab ORAL SCH (19:09)
[2017-08-20 20:00] VITALS: BP 162/115
[2017-08-20] MEDS: Labetalol 200mg tab ORAL SCH (20:55)
[2017-08-20] MEDS: Methocarbamol 750mg tab ORAL SCH (20:56)
--- NOTE | 2017-08-20 21:30 | History and Physical Report ---
DATE OF ADMISSION: 08/20/2017 TIME: 2 p.m. CONSULTANTS: 1. Jassi Scott M.D. 2. Gricelda Granda M.D. 3. Joni Ferguson M.D. 4. Tonny Franco M.D. CHIEF COMPLAINT: Intractable neck pain and back pain and hypertensive urgency with anxiety. BRIEF HISTORY: The patient is a 52-year-old male with history of MS, ran out of medications a week ago, pain all over started getting worse in back of the neck as well as radiating to the back. The patient rated 8/10, came to [place], diagnosed as above, being admitted shortly. Currently, slightly anxious in bed, oriented x3, in no acute distress. PAST MEDICAL HISTORY: MS, hypertension, chronic pain and anxiety. PAST SURGICAL HISTORY: None. MEDICATIONS: Normodyne, Dilaudid and Benadryl. ALLERGIES: Toradol. SOCIAL HISTORY: No smoking. No alcohol. No intravenous drug abuse. FAMILY HISTORY: Noncontributory. PHYSICAL EXAMINATION: GENERAL: Slightly anxious in bed, oriented x3, in no acute distress. VITAL SIGNS: Temperature is 98 degrees, pulse 89, respirations 11, and blood pressure 159/106. CARDIOVASCULAR: No murmur. LUNGS: Distant. ABDOMEN: Bowel sounds positive. Nontender and nondistended. EXTREMITIES: No cyanosis, clubbing, or edema. NEUROLOGIC: The patient moves all extremities, but slightly weak. LABORATORY AND DIAGNOSTIC DATA: Hemoglobin 14, otherwise CBC is normal. BMP show BUN 19, otherwise BMP is normal. ASSESSMENT: 1. Intractable neck and back pain. 2. Hypertensive urgency. 3. MS. 4. Anxiety. PLAN: 1. Continue previous medications. 2. Pain control. 3. Blood pressure control. 4. Dietary followup. 5. PT/OT. 6. Dietary evalation. 7. CBC and BMP in the morning. 8. Dr. Scott, Dr. Granda, Dr. Ferguson, and to consult. Dennis Hoffman D.O. DR: ERICA JOB#: [id number] CC:
--- NOTE | 2017-08-20 22:24 | Consultation ---
Consult Note Consult Note NEUROLOGY CONSULTATION: Full note dictated #[id number] 52 y/o, RH, BM with MS diagnosed in 2002. Dr. Rico Carcamo takes care of his MS. About 2 weeks ago he started to feel unwell. He had pain starting in his neck and spreading down his entire body. In addition his left leg started to get weaker. ON EXAM: Problems with memory. Trace left VII central. B - LE spasticity Left LE paresis. Altered sensation in entire left LE Brisker left knee jerk L> R paraparetic gait. IMPRESSION: Possible exacerbation of MS. Hypertension OOC. REC: First control hypertension. Then Solumedrol 1 G q day x 3 days. F/U with Dr. Carcamo to start DMA. Marilou Franco M.D., M.S.P.Gena. MARILOU FRANCO Aug 20, 2017 22:24
[2017-08-21] VITALS: BP 139/94
[2017-08-21 04:00] VITALS: BP 159/99
[2017-08-21 07:38] LABS: BASOPHILS % (AUTO) 0.6 % (0.0-2.0); EOSINOPHILS % (AUTO) 2.3 % (0.0-3.0); HEMATOCRIT 38.7 % (42.0-52.0); HEMOGLOBIN 13.2 G/DL (14.2-18.0); LYMPHOCYTES % (AUTO) 27.7 % (20.0-45.0); MEAN CORPUSCULAR VOLUME 92 FL (80-99); MONOCYTES % (AUTO) 10.1 % (1.0-10.0); NEUTROPHILS % (AUTO) 59.4 % (45.0-75.0); PLATELET COUNT 219 K/UL (150-450); RED BLOOD COUNT 4.22 M/UL (4.70-6.10); RED CELL DISTRIBUTION WIDTH 13.1 % (11.6-14.8); WHITE BLOOD COUNT 8.4 K/UL (4.8-10.8)
--- NOTE | 2017-08-21 07:45 | Consultation ---
DATE OF CONSULTATION: 08/20/2017 NEUROLOGY CONSULTATION REQUESTING PHYSICIAN: Dennis Hoffman D.O. HISTORY: Mr. Teto Granda is a 52-year-old, right-handed, black gentleman who does have a long history of hypertension and was diagnosed with multiple sclerosis in the year 2002. His problem started with headaches, neck pain, and weakness in his lower extremities. The problems continued, and he was taken to [facility] where he was diagnosed with remitting relapsing multiple sclerosis. Over the years, he has had multiple hospitalizations for his multiple sclerosis. He was first started on Avonex and then the disease-modifying agent was changed to Copaxone. He was then changed to Tysabri for approximately two years. Following that, he has not been on a disease-modifying agent for quite some time. His episodes of exacerbations have been treated with Solu-Medrol. He was recently admitted to [facility] in July 2017. At that time, he was seen by Dr. Fletcher Scott and was complaining of headaches, increased weakness in the left leg, and was given a course of Solu-Medrol. He did improve with that, but in the last week or two, he has noticed increasing weakness in his left lower extremity, difficulty with walking, pain starting in his neck, and radiating all the way down his entire body and a feeling of not being well. He is certain that this is due to an exacerbation of his multiple sclerosis. Of note is that his blood pressures have also been out of control. PAST MEDICAL HISTORY: Significant for hypertension for numerous years, multiple sclerosis diagnosed in 2002. FAMILY HISTORY: Nothing significant. PERSONAL HISTORY: ' Home: He lives with his . Work: He has been disabled for numerous years. Habits: He denies use of alcohol, tobacco, or illicit drugs. PRESENT MEDICATIONS: Include Cymbalta, aspirin, prednisone 40 mg daily, hydrochlorothiazide, Norvasc, Neurontin 300 mg TID, labetalol, Lopressor, Dilaudid, Robaxin, Catapres, hydralazine, MiraLax, Ambien, Tylenol, and Benadryl. PHYSICAL EXAMINATION: GENERAL: He is a well-developed, well-nourished, obese, black gentleman, lying in bed, in no acute distress. VITAL SIGNS: Pulse 73 per minute, blood pressure 164/110 mmHg, respirations 15 per minute, and temperature 98.1 degrees Fahrenheit. HEAD: Normocephalic and atraumatic. NECK: No neck rigidity was observed. EENT: Benign. NEUROLOGIC EXAMINATION: MENTAL STATUS EXAMINATION: He was awake and alert. He was oriented to person, place, and time. He was able to recall 3/3 words immediately, but could only remember 2/3 words in 1 minute and 3 minutes even on the second trial. He was able to remember presidents, Trump and Obama, but could not remember presidents prior to that. His mathematical skills were fairly good. His visuospatial function was preserved. SPEECH: He had no dysarthria. LANGUAGE: He had no aphasia. CRANIAL NERVE EXAMINATION: II: The visual keller were intact on confrontation testing. III, IV & : The external ocular movements were full and the pupils 3 mm in diameter, equal, round, regular, and reactive to light. V: He had normal facial sensations and the temporales, masseters, and pterygoids functioned normally. VII: He had left seventh central facial paresis. VIII: He was able to hear well bilaterally. He had no nystagmus, but his saccades were jerky. IX: The palate moved symmetrically on phonation. X: He had no hoarseness of voice. XI: The sternocleidomastoids and trapezii functions normally. XII: The tongue was in the midline without any fasciculations or atrophy. MOTOR SYSTEM: The tone was increased in both lower extremities with significant degree of spasticity . Examination of muscle mass revealed no focal muscle wasting. Examination of power was difficult to perform because of give-way weakness. He, however, had approximately G 5/5 power except for G 3/5 power in the left iliopsoas, G 4/5 power in the left ankle dorsiflexors, and toe extensors. SENSORY EXAMINATION: He complained of altered sensations in his entire left lower extremity in on nondermatomal nonneurogenic fashion. Position sense was normal in the fingers bilaterally, but was diminished in the toes bilaterally. REFLEXES: 1+ and bilaterally symmetrical at the biceps, triceps, and brachioradialis, 1+ on the right and 2++ on the left at the knees. 0 at both ankles. The plantar responses were flexor on the right and extensor on the left. COORDINATION: Klnuly-ly-lojm testing was clumsy bilaterally. He was unable to perform [id number] testing. STANCE: He stood up with support. GAIT: He walked with a left greater than right paraparetic gait. DIAGNOSTIC IMPRESSION: 1. Mr. Teto Granda is a 52-year-old, right-handed, black gentleman, with past history of multiple sclerosis, diagnosed in 2002, treated with different disease-modifying agents including Avonex, Copaxone, and Tysabri. However, for the last few years, he has been on no disease-modifying agent. His exacerbations have been treated with pulse dose Solu-Medrol. He feels that in the last two weeks, he has been having increasing neck pain radiating into his entire body, increasing left leg pain, and increasing difficulty with walking. He feels that this is due to an acute exacerbation of his multiple sclerosis. 2. On neurological examination, at this time, he does have problems with recent and remote memory, a trace left seventh central facial paresis, jerky saccades, bilateral lower extremity spasticity, left lower extremity paresis involving the proximal and distal muscles, altered sensations in his entire left lower extremity, a brisk left knee jerk, decreased position sense in the toes bilaterally, and a left greater than right paraplegic gait. 3. The patient's history and neurological examination are most compatible with a possible exacerbation of his multiple sclerosis. In addition, his hypertension is also out of control. RECOMMENDATIONS: 1. The patient's blood pressure should be brought under control first. 2. As soon as his blood pressure is under control, he should be started on Solu-Medrol 1 g daily for the next three days. 3. The patient was encouraged to see his usual neurologist, Dr. Rico Carcamo, to start him on a disease-modifying agent. Thank you for entrusting me with the care of Mr. Granda. I shall follow him with you. Tonny Franco M.D., M.S.P.H. DR: Niko JOB#: [id number] MTDD
[2017-08-21 07:50] LABS: ANION GAP 6 mmol/L (5-15); BLOOD UREA NITROGEN 15 mg/dL (7-18); CALCIUM 8.7 MG/DL (8.5-10.1); CARBON DIOXIDE 28 MMOL/L (21-32); CHLORIDE 105 MMOL/L (98-107); CREATININE 1.1 MG/DL (0.55-1.30); POTASSIUM 3.9 MMOL/L (3.5-5.1); SODIUM 139 MMOL/L (136-145)
[2017-08-21 08:00] VITALS: BP 161/101
[2017-08-21] MEDS: Aspirin EC 81mg tab ORAL SCH (09:06)
[2017-08-21] MEDS: HydrALAZINE 50mg tab ORAL SCH ×2 (09:07→17:01)
[2017-08-21] MEDS: Methocarbamol 750mg tab ORAL SCH ×3 (09:08→17:02)
[2017-08-21] MEDS: cloNIDine 0.2mg Tab ORAL SCH ×2 (09:09→17:00)
[2017-08-21] MEDS: Labetalol 200mg tab ORAL SCH (09:09)
[2017-08-21 12:00] VITALS: BP 143/93
[2017-08-21] MEDS: D5 1/2NS 1,000 ML IV SCH (12:10)
--- NOTE | 2017-08-21 13:27 | General Progress Note ---
Assessment/Plan Assessment/Plan (1) Multiple Sclerosis (2) Neuropathic pain (3) Cervical DDD (4) Cervical spondylosis (5) Lumbar DDD (6) Lumbar spondylosis (7) Narcotic Dependency Patient will be continued on the Dilaudid 2mg changed to IM Q4H PRN severe pain and started on [place] 10/325mg PO 1 tab Q6H PRN Moderate pain. Pt was d/w Dr. Scott and he concurred. Subjective Date patient seen: Aug 21, 2017 Time patient seen: 12:30 - pm Allergies: Coded Allergies: KETOROLAC (Verified Allergy, Severe, Anaphylaxis, 06/19/15) Subjective Constitutional: Reports: weakness, Denies: chills, diaphoresis, fever, malaise , no symptoms, other HEENT: Denies: blurred vision, double vision, ear discharge, ear pain, eye pain , mouth pain, mouth swelling, no symptoms, nose congestion, nose pain, other, tearing, throat pain, throat swelling Cardiovascular: Denies: edema, irregular heart rate, lightheadedness, no symptoms, other, palpitations, syncope Respiratory: Denies: SOB at rest, SOB with excertion, cough, no symptoms, orthopnea, other, shortness of breath, sputum, stridor, wheezing Gastrointestinal/Abdominal: Denies: abdomen distended, abdominal pain, black stools, blood in stool, constipated, diarrhea, difficulty swallowing, nausea, no symptoms, other, poor appetite, poor fluid intake, rectal bleeding, tarry stools, vomiting Genitourinary: Denies: burning, discharge, flank pain, frequency, hematuria, incontinence, no symptoms, other, pain, urgency Neurologic/Psychiatric: Reports: weakness, Denies: anxiety, depressed, emotional problems, headache, no symptoms, numbness, other, paresthesia, pre- existing deficit, seizure, tingling, tremors Endocrine: Denies: excessive sweating, flushing, increased hunger, increased thirst, increased urine, intolerance to cold, intolerance to heat, no symptoms, other, unexplained weight gain, unexplained weight loss Hematologic/Lymphatic: Denies: anemia, easy bleeding, easy bruising, no symptoms, other Subjective Patient is a known patient from prior admission admitted under the care of Dr. Frank due to MS exacerbation and pain. The pain has been severe. He has been seen by Neurologist. At this time is on Dilaudid 2mg IV Q4H PRN severe pain. He says that IM works better and needs something for breakthrough pain. Objective Last 24 Hour Vital Signs Date Time Temp Pulse Resp B/P (MAP) Pulse Ox O2 Delivery O2 Flow Rate FiO2 08/21/17 10:13 97.9 08/21/17 09:43 97.9 08/21/17 09:10 87 161/101 08/21/17 09:09 87 161/101 08/21/17 09:09 87 161/101 08/21/17 09:09 161/101 08/21/17 09:07 161/101 08/21/17 08:00 97.9 85 18 161/101 96 Room Air 97.9 08/21/17 08:00 92 08/21/17 04:00 75 08/21/17 04:00 97.9 72 18 159/99 96 97.9 08/21/17 00:00 90 08/21/17 00:00 98.0 81 19 139/94 95 98.0 08/20/17 20:55 73 164/110 08/20/17 20:55 73 164/110 08/20/17 20:00 97.3 81 20 162/115 97 97.3 08/20/17 20:00 76 08/20/17 19:09 148/106 08/20/17 19:09 148/106 08/20/17 16:53 15 148/106 98 Room Air 08/20/17 16:25 73 13 148/95 99 Room Air 08/20/17 14:55 73 13 148/95 99 Room Air Intake and Output 08/20/17 08/21/17 19:00 07:00 Intake Total 220 ml Balance 220 ml Intake Oral 220 ml # Voids 2 # Bowel Movements 1 Laboratory Tests 08/21/17 06:35: White Blood Count 8.4, Red Blood Count 4.22L, Hemoglobin 13.2L, Hematocrit 38.7L , Mean Corpuscular Volume 92, Mean Corpuscular Hemoglobin 31.4H, Mean Corpuscular Hemoglobin Concent 34.2, Red Cell Distribution Width 13.1, Platelet Count 219, Mean Platelet Volume 7.3, Neutrophils (%) (Auto) 59.4, Lymphocytes (% ) (Auto) 27.7, Monocytes (%) (Auto) 10.1H, Eosinophils (%) (Auto) 2.3, Basophils (%) (Auto) 0.6, Sodium Level 139, Potassium Level 3.9, Chloride Level 105, Carbon Dioxide Level 28, Anion Gap 6, Blood Urea Nitrogen 15, Creatinine 1.1, Estimat Glomerular Filtration Rate > 60, Glucose Level 85, Calcium Level 8.7 Height (Feet): 6 Height (Inches): 0.00 Weight (Pounds): 225 Objective General Appearance: no apparent distress, alert EENT: PERRL/EOMI, normal ENT inspection Neck: non-tender, normal alignment Cardiovascular: normal peripheral pulses, normal rate, regular rhythm Respiratory/Chest: lungs clear, normal breath sounds Abdomen: non tender, soft Extremities: non-tender Edema: no edema noted Arm (L), no edema noted Arm (R), no edema noted Leg (L), no edema noted Leg (R), no edema noted Pedal (L), no edema noted Pedal (R), no edema noted Generalized Neurologic: alert, oriented x 3 Skin: warm/dry MAYCOL WILEY Aug 21, 2017 13:27
--- NOTE | 2017-08-21 15:00 | Cardiac Electrophysiology PN ---
Subjective Subjective [id number] Objective Last 24 Hour Vital Signs Date Time Temp Pulse Resp B/P (MAP) Pulse Ox O2 Delivery O2 Flow Rate FiO2 08/21/17 14:31 97.9 08/21/17 14:01 97.9 08/21/17 12:00 86 08/21/17 12:00 97.9 90 18 143/93 96 Room Air 97.9 08/21/17 10:13 97.9 08/21/17 09:43 97.9 08/21/17 09:10 87 161/101 08/21/17 09:09 87 161/101 08/21/17 09:09 87 161/101 08/21/17 09:09 161/101 08/21/17 09:07 161/101 08/21/17 08:00 97.9 85 18 161/101 96 Room Air 97.9 08/21/17 08:00 92 08/21/17 04:00 75 08/21/17 04:00 97.9 72 18 159/99 96 97.9 08/21/17 00:00 90 08/21/17 00:00 98.0 81 19 139/94 95 98.0 08/20/17 20:55 73 164/110 08/20/17 20:55 73 164/110 08/20/17 20:00 97.3 81 20 162/115 97 97.3 08/20/17 20:00 76 08/20/17 19:09 148/106 08/20/17 19:09 148/106 08/20/17 16:53 15 148/106 98 Room Air 08/20/17 16:25 73 13 148/95 99 Room Air Intake and Output 08/20/17 08/21/17 19:00 07:00 Intake Total 220 ml Balance 220 ml Intake Oral 220 ml # Voids 2 # Bowel Movements 1 Laboratory Tests Test 08/21/17 06:35 White Blood Count 8.4 K/UL (4.8-10.8) Red Blood Count 4.22 M/UL (4.70-6.10) L Hemoglobin 13.2 G/DL (14.2-18.0) L Hematocrit 38.7 % (42.0-52.0) L Mean Corpuscular Volume 92 FL (80-99) Mean Corpuscular Hemoglobin 31.4 PG (27.0-31.0) H Mean Corpuscular Hemoglobin Concent 34.2 G/DL (32.0-36.0) Red Cell Distribution Width 13.1 % (11.6-14.8) Platelet Count 219 K/UL (150-450) Mean Platelet Volume 7.3 FL (6.5-10.1) Neutrophils (%) (Auto) 59.4 % (45.0-75.0) Lymphocytes (%) (Auto) 27.7 % (20.0-45.0) Monocytes (%) (Auto) 10.1 % (1.0-10.0) H Eosinophils (%) (Auto) 2.3 % (0.0-3.0) Basophils (%) (Auto) 0.6 % (0.0-2.0) Sodium Level 139 MMOL/L (136-145) Potassium Level 3.9 MMOL/L (3.5-5.1) Chloride Level 105 MMOL/L (98-107) Carbon Dioxide Level 28 MMOL/L (21-32) Anion Gap 6 mmol/L (5-15) Blood Urea Nitrogen 15 mg/dL (7-18) Creatinine 1.1 MG/DL (0.55-1.30) Estimat Glomerular Filtration Rate > 60 mL/min (>60) Glucose Level 85 MG/DL (74-106) Calcium Level 8.7 MG/DL (8.5-10.1) Joni Ferguson MD Aug 21, 2017 15:00
[2017-08-21 16:00] VITALS: BP 144/79
--- NOTE | 2017-08-21 16:03 | General Progress Note ---
Assessment/Plan Problem List: (1) Neck sprain ICD Codes: S13.9XXA - Neck sprain SNOMED: 412439326 (2) Hypertension ICD Codes: I10 - Essential (primary) hypertension SNOMED: 87192147 (3) Multiple sclerosis (4) Low back pain ICD Codes: M54.5 - Low back pain SNOMED: 069263956 Status: unchanged Assessment/Plan ot pt diet bp pain control cbc bmp am Subjective Constitutional: Reports: weakness Allergies: Coded Allergies: KETOROLAC (Verified Allergy, Severe, Anaphylaxis, 06/19/15) All Systems: reviewed and negative except above Subjective sleepy in bed Objective Last 24 Hour Vital Signs Date Time Temp Pulse Resp B/P (MAP) Pulse Ox O2 Delivery O2 Flow Rate FiO2 08/21/17 14:31 97.9 08/21/17 14:01 97.9 08/21/17 12:00 86 08/21/17 12:00 97.9 90 18 143/93 96 Room Air 97.9 08/21/17 10:13 97.9 08/21/17 09:43 97.9 08/21/17 09:10 87 161/101 08/21/17 09:09 87 161/101 08/21/17 09:09 87 161/101 08/21/17 09:09 161/101 08/21/17 09:07 161/101 08/21/17 08:00 97.9 85 18 161/101 96 Room Air 97.9 08/21/17 08:00 92 08/21/17 04:00 75 08/21/17 04:00 97.9 72 18 159/99 96 97.9 08/21/17 00:00 90 08/21/17 00:00 98.0 81 19 139/94 95 98.0 08/20/17 20:55 73 164/110 08/20/17 20:55 73 164/110 08/20/17 20:00 97.3 81 20 162/115 97 97.3 08/20/17 20:00 76 18 19:09 148/106 08/20/17 19:09 148/106 08/20/17 16:53 15 148/106 98 Room Air 08/20/17 16:25 73 13 148/95 99 Room Air Intake and Output 08/20/17 08/21/17 19:00 07:00 Intake Total 220 ml Balance 220 ml Intake Oral 220 ml # Voids 2 # Bowel Movements 1 Laboratory Tests 08/21/17 06:35: White Blood Count 8.4, Red Blood Count 4.22L, Hemoglobin 13.2L, Hematocrit 38.7L , Mean Corpuscular Volume 92, Mean Corpuscular Hemoglobin 31.4H, Mean Corpuscular Hemoglobin Concent 34.2, Red Cell Distribution Width 13.1, Platelet Count 219, Mean Platelet Volume 7.3, Neutrophils (%) (Auto) 59.4, Lymphocytes (% ) (Auto) 27.7, Monocytes (%) (Auto) 10.1H, Eosinophils (%) (Auto) 2.3, Basophils (%) (Auto) 0.6, Sodium Level 139, Potassium Level 3.9, Chloride Level 105, Carbon Dioxide Level 28, Anion Gap 6, Blood Urea Nitrogen 15, Creatinine 1.1, Estimat Glomerular Filtration Rate > 60, Glucose Level 85, Calcium Level 8.7 Height (Feet): 6 Height (Inches): 0.00 Weight (Pounds): 225 General Appearance: lethargic EENT: normal ENT inspection Neck: normal alignment Cardiovascular: normal peripheral pulses, normal rate, regular rhythm Respiratory/Chest: chest wall non-tender, lungs clear, normal breath sounds Abdomen: normal bowel sounds, non tender, soft Extremities: normal inspection Edema: no edema noted Arm (L), no edema noted Arm (R), no edema noted Leg (L), no edema noted Leg (R), no edema noted Pedal (L), no edema noted Pedal (R), no edema noted Generalized Neurologic: responsive, motor weakness Skin: normal pigmentation, warm/dry BARBARA RAGLAND Aug 21, 2017 16:03
[2017-08-21] MEDS: HYDROcodone/Acetamin 10/325 tab ORAL PRN ×2 (16:51→22:57)
[2017-08-21 20:00] VITALS: BP 120/79
--- NOTE | 2017-08-21 20:46 | Cardiology Progress Note ---
Assessment/Plan Assessment/Plan The patient is seen and examined, full consult note will be dictated shortly. Objective Last 24 Hour Vital Signs Date Time Temp Pulse Resp B/P (MAP) Pulse Ox O2 Delivery O2 Flow Rate FiO2 08/21/17 20:00 90 08/21/17 20:00 97.6 85 19 120/79 96 Room Air 97.6 08/21/17 18:32 97.9 08/21/17 18:02 97.9 08/21/17 17:50 97.9 08/21/17 17:01 144/79 08/21/17 17:00 144/79 08/21/17 16:51 97.9 08/21/17 16:00 97.9 85 18 144/79 96 Room Air 97.9 08/21/17 16:00 93 08/21/17 14:01 97.9 08/21/17 12:00 86 08/21/17 12:00 97.9 90 18 143/93 96 Room Air 97.9 08/21/17 10:13 97.9 08/21/17 09:43 97.9 08/21/17 09:10 87 161/101 08/21/17 09:09 87 161/101 08/21/17 09:09 87 161/101 08/21/17 09:09 161/101 08/21/17 09:07 161/101 08/21/17 08:00 97.9 85 18 161/101 96 Room Air 97.9 08/21/17 08:00 92 08/21/17 04:00 75 08/21/17 04:00 97.9 72 18 159/99 96 97.9 08/21/17 00:00 90 08/21/17 00:00 98.0 81 19 139/94 95 98.0 08/20/17 20:55 73 164/110 08/20/17 20:55 73 164/110 Intake and Output 08/20/17 08/21/17 19:00 07:00 Intake Total 220 ml Balance 220 ml Intake Oral 220 ml # Voids 2 # Bowel Movements 1 Laboratory Tests Test 08/21/17 06:35 White Blood Count 8.4 K/UL (4.8-10.8) Red Blood Count 4.22 M/UL (4.70-6.10) L Hemoglobin 13.2 G/DL (14.2-18.0) L Hematocrit 38.7 % (42.0-52.0) L Mean Corpuscular Volume 92 FL (80-99) Mean Corpuscular Hemoglobin 31.4 PG (27.0-31.0) H Mean Corpuscular Hemoglobin Concent 34.2 G/DL (32.0-36.0) Red Cell Distribution Width 13.1 % (11.6-14.8) Platelet Count 219 K/UL (150-450) Mean Platelet Volume 7.3 FL (6.5-10.1) Neutrophils (%) (Auto) 59.4 % (45.0-75.0) Lymphocytes (%) (Auto) 27.7 % (20.0-45.0) Monocytes (%) (Auto) 10.1 % (1.0-10.0) H Eosinophils (%) (Auto) 2.3 % (0.0-3.0) Basophils (%) (Auto) 0.6 % (0.0-2.0) Sodium Level 139 MMOL/L (136-145) Potassium Level 3.9 MMOL/L (3.5-5.1) Chloride Level 105 MMOL/L (98-107) Carbon Dioxide Level 28 MMOL/L (21-32) Anion Gap 6 mmol/L (5-15) Blood Urea Nitrogen 15 mg/dL (7-18) Creatinine 1.1 MG/DL (0.55-1.30) Estimat Glomerular Filtration Rate > 60 mL/min (>60) Glucose Level 85 MG/DL (74-106) Calcium Level 8.7 MG/DL (8.5-10.1) ELIANA MCGRATH Aug 21, 2017 20:46
--- NOTE | 2017-08-21 21:13 | Cardiology Report ---
APPROVED REPORT EKG Measurement Heart [id number] Normal sinus rhythm Septal infarct, age undetermined Abnormal ECG
--- NOTE | 2017-08-21 21:39 | Neurology Progress Note ---
Interim History Interim History Interim History Mr. Granda feels better. His blood pressures are better controlled. He continues to feel weaker on the left side predominantly in the leg. He continues to have pain. He denies any new neurologic symptoms. Review of Systems Neuro Review of Systems Benign. Objective Physical Exam Last Vital Signs Date Time Temp Pulse Resp B/P (MAP) Pulse Ox O2 Delivery O2 Flow Rate FiO2 08/21/17 21:07 90 120/79 08/21/17 20:00 97.6 19 96 Room Air 97.6 Laboratory Tests Test 08/21/17 06:35 White Blood Count 8.4 K/UL (4.8-10.8) Red Blood Count 4.22 M/UL (4.70-6.10) L Hemoglobin 13.2 G/DL (14.2-18.0) L Hematocrit 38.7 % (42.0-52.0) L Mean Corpuscular Volume 92 FL (80-99) Mean Corpuscular Hemoglobin 31.4 PG (27.0-31.0) H Mean Corpuscular Hemoglobin Concent 34.2 G/DL (32.0-36.0) Red Cell Distribution Width 13.1 % (11.6-14.8) Platelet Count 219 K/UL (150-450) Mean Platelet Volume 7.3 FL (6.5-10.1) Neutrophils (%) (Auto) 59.4 % (45.0-75.0) Lymphocytes (%) (Auto) 27.7 % (20.0-45.0) Monocytes (%) (Auto) 10.1 % (1.0-10.0) H Eosinophils (%) (Auto) 2.3 % (0.0-3.0) Basophils (%) (Auto) 0.6 % (0.0-2.0) Sodium Level 139 MMOL/L (136-145) Potassium Level 3.9 MMOL/L (3.5-5.1) Chloride Level 105 MMOL/L (98-107) Carbon Dioxide Level 28 MMOL/L (21-32) Anion Gap 6 mmol/L (5-15) Blood Urea Nitrogen 15 mg/dL (7-18) Creatinine 1.1 MG/DL (0.55-1.30) Estimat Glomerular Filtration Rate > 60 mL/min (>60) Glucose Level 85 MG/DL (74-106) Calcium Level 8.7 MG/DL (8.5-10.1) Neurologic Exam Objective PHYSICAL EXAMINATION: GENERAL: He is a well-developed, well-nourished, obese, black gentleman, lying in bed, in no acute distress. HEAD: Normocephalic and atraumatic. NECK: No neck rigidity was observed. EENT: Benign. NEUROLOGIC EXAMINATION: MENTAL STATUS EXAMINATION: He was awake and alert. He was oriented to person, place, and time. He was able to recall 3/3 words immediately, but could only remember 2/3 words in 1 minute and 3 minutes even on the second trial. He was able to remember presidents, Trump and Obama, but could not remember presidents prior to that. His mathematical skills were fairly good. His visuospatial function was preserved. SPEECH: He had no dysarthria. LANGUAGE: He had no aphasia. CRANIAL NERVE EXAMINATION: II: The visual keller were intact on confrontation testing. III, IV & : The external ocular movements were full and the pupils 3 mm in diameter, equal, round, regular, and reactive to light. V: He had normal facial sensations and the temporales, masseters, and pterygoids functioned normally. VII: He had left seventh central facial paresis. VIII: He was able to hear well bilaterally. He had no nystagmus, but his saccades were jerky. IX: The palate moved symmetrically on phonation. X: He had no hoarseness of voice. XI: The sternocleidomastoids and trapezii functions normally. XII: The tongue was in the midline without any fasciculations or atrophy. MOTOR SYSTEM: The tone was increased in both lower extremities with significant degree of spasticity . Examination of muscle mass revealed no focal muscle wasting. Examination of power was difficult to perform because of give-way weakness. He, however, had approximately G 5/5 power except for G 3/5 power in the left iliopsoas, G 4/5 power in the left ankle dorsiflexors, and toe extensors. SENSORY EXAMINATION: He complained of altered sensations in his entire left lower extremity in on nondermatomal nonneurogenic fashion. Position sense was normal in the fingers bilaterally, but was diminished in the toes bilaterally. REFLEXES: 1+ and bilaterally symmetrical at the biceps, triceps, and brachioradialis, 1+ on the right and 2++ on the left at the knees. 0 at both ankles. The plantar responses were flexor on the right and extensor on the left. COORDINATION: [id number] testing was clumsy bilaterally. He was unable to perform [id number] testing. STANCE: He stood up with support. GAIT: He walked with a left greater than right paraparetic gait. Impression/Recommendations Diagnostic Impression 1. Mr. Teto Granda is a 52-year-old, right-handed, black gentleman, with past history of multiple sclerosis, diagnosed in 2002, treated with different disease -modifying agents including Avonex, Copaxone, and Tysabri. However, for the last few years, he has been on no disease-modifying agent. His exacerbations have been treated with pulse dose Solu-Medrol. He feels that in the last two weeks, he has been having increasing neck pain radiating into his entire body, increasing left leg pain, and increasing difficulty with walking. He feels that this is due to an acute exacerbation of his multiple sclerosis. 2. He feels better. His blood pressures are better controlled. He continues to feel weaker on the left side predominantly in the leg. He continues to have pain. He denies any new neurologic symptoms. 3. On neurological examination, at this time, he does have problems with recent and remote memory, a trace left seventh central facial paresis, jerky saccades, bilateral lower extremity spasticity, left lower extremity paresis involving the proximal and distal muscles, altered sensations in his entire left lower extremity, a brisk left knee jerk, decreased position sense in the toes bilaterally, and a left greater than right paraplegic gait. 4. The patient's history and neurological examination are most compatible with a possible exacerbation of his multiple sclerosis. In addition, his hypertension was also out of control, but is undr better control now. Recommendations 1. Continue blood pressure control. 2. Solu-Medrol 1 g daily for the next three days. 3. The patient was encouraged to see his usual neurologist, Dr. Rico Carcamo, to start him on a disease-modifying agent. Marilou Castle M.D., M.S.P.H. MARILOU ACSTLE Aug 21, 2017 21:39
--- NOTE | 2017-08-21 22:00 | Consultation ---
DATE OF CONSULTATION: 08/21/2017 CARDIOLOGY CONSULTATION CONSULTING PHYSICIAN: Joni Ferguson M.D. REFERRING PHYSICIAN: Dennis Hoffman D.O. REASON FOR CONSULTATION: Accelerated hypertension. HISTORY OF PRESENT ILLNESS: The patient is a 52-year-old gentleman with history of hypertension, multiple sclerosis as well as chronic pain and anxiety, who came to the emergency room for increasing back pain with radiation from his neck. The patient also had accelerated hypertension and a Cardiology consultation was obtained for further evaluation and management. At the time of my evaluation, the patient is feeling better. Denies any chest pain or shortness of breath. Blood pressure in the ER was 161/101. PAST MEDICAL HISTORY: 1. Hypertension. 2. Multiple sclerosis. 3. History of a chest pain with negative stress test in the past. FAMILY HISTORY: Noncontributory. SOCIAL HISTORY: He lives at home. Does not smoke or drink alcohol. REVIEW OF SYSTEMS: Review of systems was thoroughly performed and was negative other than what was mentioned in the history of present illness. PHYSICAL EXAMINATION: VITAL SIGNS: Blood pressure 160/101, pulse is 87, respirations 18, and temperature 97.9 degrees. HEAD AND NECK: No JVD or carotid bruits. LUNGS: Clear. CARDIOVASCULAR: Regular S1 and S2 with no gallop or murmur. ABDOMEN: Soft. EXTREMITIES: No pitting edema. LABORATORY AND DIAGNOSTIC DATA: His telemetry strip showed normal sinus rhythm. EKG shows normal sinus rhythm with poor R-wave progression. His labs show white count of 8.4, hemoglobin 13.2, hematocrit 38.7, and platelet count of 219. Sodium is 139, potassium 3.9, BUN of 15, creatinine 1.1 and glucose of 85. ASSESSMENT AND PLAN: 1. Chest pain. The patient will be ruled out for myocardial infarction. His stress test in the past has been negative. 2. Accelerated hypertension. Blood pressure is better, on Norvasc 10 mg daily, clonidine 0.2 mg b.i.d., hydralazine 50 mg b.i.d., hydrochlorothiazide 50 mg daily, and labetalol 400 mg b.i.d. The patient is also on metoprolol 100 mg b.i.d., that will be discontinued as the patient is already on labetalol. 3. Multiple sclerosis. Further evaluation by Dr. Franco. Thank you very much, Dr. Hoffman, for allowing me to participate in the care of this patient. Please do not hesitate to contact me for any questions regarding my evaluation. Joni Ferguson M.D. DR: [place] JOB#: [id number] CC:
[2017-08-21] MEDS: methylPREDNISolone Sod Succ 1,000 MG in NS 275 ML IVPB SCH (22:39)
[2017-08-21] MEDS: Zolpidem 5mg tab ORAL PRN (22:57)
[2017-08-22] VITALS: BP 132/61
[2017-08-22] MEDS: D5 1/2NS 1,000 ML IV SCH ×2 (03:50→20:28)
[2017-08-22 04:00] VITALS: BP 140/79
[2017-08-22] MEDS: HYDROcodone/Acetamin 10/325 tab ORAL PRN ×3 (06:11→18:27)
[2017-08-22 08:00] VITALS: BP 158/112
[2017-08-22] MEDS: Methocarbamol 750mg tab ORAL SCH ×3 (09:24→17:06)
[2017-08-22] MEDS: cloNIDine 0.2mg Tab ORAL SCH ×2 (09:24→17:05)
[2017-08-22] MEDS: HydrALAZINE 50mg tab ORAL SCH ×2 (09:26→17:07)
[2017-08-22] MEDS: Aspirin EC 81mg tab ORAL SCH (09:26)
[2017-08-22 09:33] LABS: HEMATOCRIT 39.6 % (42.0-52.0); HEMOGLOBIN 13.3 G/DL (14.2-18.0); MEAN CORPUSCULAR VOLUME 93 FL (80-99); PLATELET COUNT 216 K/UL (150-450); RED BLOOD COUNT 4.25 M/UL (4.70-6.10); RED CELL DISTRIBUTION WIDTH 13.5 % (11.6-14.8); WHITE BLOOD COUNT 11.3 K/UL (4.8-10.8)
[2017-08-22 10:10] LABS: ANION GAP 7 mmol/L (5-15); BLOOD UREA NITROGEN 22 mg/dL (7-18); CALCIUM 9.1 MG/DL (8.5-10.1); CARBON DIOXIDE 26 MMOL/L (21-32); CHLORIDE 101 MMOL/L (98-107); CREATININE 1.4 MG/DL (0.55-1.30); POTASSIUM 4.9 MMOL/L (3.5-5.1); SODIUM 133 MMOL/L (136-145)
--- NOTE | 2017-08-22 10:25 | General Progress Note ---
Assessment/Plan Assessment/Plan (1) Multiple Sclerosis (2) Neuropathic pain (3) Cervical DDD (4) Cervical spondylosis (5) Lumbar DDD (6) Lumbar spondylosis (7) Narcotic Dependency (8) Opioid induced constipation Patient will be continued on the Dilaudid and [place]. Pt was d/w Dr. Scott and he concurred. Subjective Date patient seen: Aug 22, 2017 Time patient seen: 10:15 - am Allergies: Coded Allergies: KETOROLAC (Verified Allergy, Severe, Anaphylaxis, 06/19/15) Subjective Constitutional: Reports: weakness, Denies: chills, diaphoresis, fever, malaise , no symptoms, other HEENT: Denies: blurred vision, double vision, ear discharge, ear pain, eye pain , mouth pain, mouth swelling, no symptoms, nose congestion, nose pain, other, tearing, throat pain, throat swelling Cardiovascular: Denies: edema, irregular heart rate, lightheadedness, no symptoms, other, palpitations, syncope Respiratory: Denies: SOB at rest, SOB with excertion, cough, no symptoms, orthopnea, other, shortness of breath, sputum, stridor, wheezing Gastrointestinal/Abdominal: Denies: abdomen distended, abdominal pain, black stools, blood in stool, constipated, diarrhea, difficulty swallowing, nausea, no symptoms, other, poor appetite, poor fluid intake, rectal bleeding, tarry stools, vomiting Genitourinary: Denies: burning, discharge, flank pain, frequency, hematuria, incontinence, no symptoms, other, pain, urgency Neurologic/Psychiatric: Reports: weakness, Denies: anxiety, depressed, emotional problems, headache, no symptoms, numbness, other, paresthesia, pre- existing deficit, seizure, tingling, tremors Endocrine: Denies: excessive sweating, flushing, increased hunger, increased thirst, increased urine, intolerance to cold, intolerance to heat, no symptoms, other, unexplained weight gain, unexplained weight loss Hematologic/Lymphatic: Denies: anemia, easy bleeding, easy bruising, no symptoms, other Subjective Patient is in bed sitting up and is at bed side. Pain has been stable and controlled on the Dilaudid. D/w nurse. Objective Last 24 Hour Vital Signs Date Time Temp Pulse Resp B/P (MAP) Pulse Ox O2 Delivery O2 Flow Rate FiO2 08/22/17 09:26 158/112 08/22/17 09:25 92 158/112 08/22/17 09:25 92 158/112 08/22/17 09:24 158/112 08/22/17 08:00 97.5 92 19 158/112 96 Room Air 97.5 08/22/17 08:00 98 08/22/17 04:00 97.5 82 19 140/79 96 Room Air 97.5 08/22/17 04:00 87 08/22/17 02:28 97.2 08/22/17 00:00 97.2 80 19 132/61 93 Room Air 97.2 08/22/17 00:00 105 08/21/17 21:07 90 120/79 08/21/17 20:00 90 08/21/17 20:00 97.6 85 19 120/79 96 Room Air 97.6 08/21/17 18:32 97.9 08/21/17 18:02 97.9 08/21/17 17:50 97.9 08/21/17 17:01 144/79 08/21/17 17:00 144/79 08/21/17 16:51 97.9 08/21/17 16:00 97.9 85 18 144/79 96 Room Air 97.9 08/21/17 16:00 93 08/21/17 14:01 97.9 08/21/17 12:00 86 08/21/17 12:00 97.9 90 18 143/93 96 Room Air 97.9 Intake and Output 08/21/17 08/22/17 19:00 07:00 Intake Total 1360 ml Balance 1360 ml IV Total 360 ml Other 1000 ml # Voids 5 2 # Bowel Movements 2 Laboratory Tests 08/22/17 08:30: White Blood Count 11.3H, Red Blood Count 4.25L, Hemoglobin 13.3L, Hematocrit 39.6L, Mean Corpuscular Volume 93, Mean Corpuscular Hemoglobin 31.2H, Mean Corpuscular Hemoglobin Concent 33.5, Red Cell Distribution Width 13.5, Platelet Count 216, Mean Platelet Volume 7.9, Neutrophils (%) (Auto) , Lymphocytes (%) ( Auto) , Monocytes (%) (Auto) , Eosinophils (%) (Auto) , Basophils (%) (Auto) , Neutrophils % (Manual) [Pending], Lymphocytes % (Manual) [Pending], Platelet Estimate [Pending], Platelet Morphology [Pending], Sodium Level 133L, Potassium Level 4.9, Chloride Level 101, Carbon Dioxide Level 26, Anion Gap 7, Blood Urea Nitrogen 22H, Creatinine 1.4H, Estimat Glomerular Filtration Rate > 60, Glucose Level 268#H, Calcium Level 9.1 Height (Feet): 6 Height (Inches): 0.00 Weight (Pounds): 225 Objective General Appearance: no apparent distress, alert EENT: PERRL/EOMI, normal ENT inspection Neck: non-tender, normal alignment Cardiovascular: normal peripheral pulses, normal rate, regular rhythm Respiratory/Chest: lungs clear, normal breath sounds Abdomen: non tender, soft Extremities: non-tender Edema: no edema noted Arm (L), no edema noted Arm (R), no edema noted Leg (L), no edema noted Leg (R), no edema noted Pedal (L), no edema noted Pedal (R), no edema noted Generalized Neurologic: alert, oriented x 3 Skin: warm/dry MAYCOL WILEY Aug 22, 2017 10:25
[2017-08-22 12:00] VITALS: BP 156/100
[2017-08-22] MEDS: Relistor 12mg/0.6ml Vial SUBQ SCH (12:02)
--- NOTE | 2017-08-22 12:47 | General Progress Note ---
Assessment/Plan Problem List: (1) Neck sprain ICD Codes: S13.9XXA - Neck sprain SNOMED: 589721059 (2) Hypertension ICD Codes: I10 - Essential (primary) hypertension SNOMED: 96320146 (3) Multiple sclerosis (4) Low back pain ICD Codes: M54.5 - Low back pain SNOMED: 683474792 Status: stable, progressing, tolerating diet Assessment/Plan ot pt diet bp pain control cbc bmp am dc plan if clear Subjective Constitutional: Reports: weakness Allergies: Coded Allergies: KETOROLAC (Verified Allergy, Severe, Anaphylaxis, 06/19/15) All Systems: reviewed and negative except above Subjective sleepy in bed Objective Last 24 Hour Vital Signs Date Time Temp Pulse Resp B/P (MAP) Pulse Ox O2 Delivery O2 Flow Rate FiO2 08/22/17 12:01 97.5 08/22/17 12:00 97.5 84 19 156/100 96 Room Air 97.5 08/22/17 11:05 97.5 08/22/17 09:26 158/112 08/22/17 09:25 92 158/112 08/22/17 09:25 92 158/112 08/22/17 09:24 158/112 08/22/17 08:00 97.5 92 19 158/112 96 Room Air 97.5 08/22/17 08:00 98 08/22/17 04:00 97.5 82 19 140/79 96 Room Air 97.5 08/22/17 04:00 87 08/22/17 02:28 97.2 08/22/17 00:00 97.2 80 19 132/61 93 Room Air 97.2 08/22/17 00:00 105 08/21/17 21:07 90 120/79 08/21/17 20:00 90 08/21/17 20:00 97.6 85 19 120/79 96 Room Air 97.6 08/21/17 18:32 97.9 08/21/17 18:02 97.9 08/21/17 17:50 97.9 08/21/17 17:01 144/79 08/21/17 17:00 144/79 08/21/17 16:51 97.9 08/21/17 16:00 97.9 85 18 144/79 96 Room Air 97.9 08/21/17 16:00 93 08/21/17 14:01 97.9 Intake and Output 08/21/17 08/22/17 19:00 07:00 Intake Total 1360 ml Balance 1360 ml IV Total 360 ml Other 1000 ml # Voids 5 2 # Bowel Movements 2 Laboratory Tests 08/22/17 08:30: White Blood Count 11.3H, Red Blood Count 4.25L, Hemoglobin 13.3L, Hematocrit 39.6L, Mean Corpuscular Volume 93, Mean Corpuscular Hemoglobin 31.2H, Mean Corpuscular Hemoglobin Concent 33.5, Red Cell Distribution Width 13.5, Platelet Count 216, Mean Platelet Volume 7.9, Neutrophils (%) (Auto) , Lymphocytes (%) ( Auto) , Monocytes (%) (Auto) , Eosinophils (%) (Auto) , Basophils (%) (Auto) , Differential Total Cells Counted 100, Neutrophils % (Manual) 89H, Lymphocytes % (Manual) 9L, Monocytes % (Manual) 1, Eosinophils % (Manual) 1, Basophils % ( Manual) 0, Band Neutrophils 0, Platelet Estimate Adequate, Platelet Morphology Normal, Red Blood Cell Morphology Normal, Sodium Level 133L, Potassium Level 4.9 , Chloride Level 101, Carbon Dioxide Level 26, Anion Gap 7, Blood Urea Nitrogen 22H, Creatinine 1.4H, Estimat Glomerular Filtration Rate > 60, Glucose Level 268 #H, Calcium Level 9.1 Height (Feet): 6 Height (Inches): 0.00 Weight (Pounds): 225 General Appearance: alert EENT: normal ENT inspection Neck: normal alignment Cardiovascular: normal peripheral pulses, normal rate, regular rhythm Respiratory/Chest: chest wall non-tender, lungs clear, normal breath sounds Abdomen: normal bowel sounds, non tender, soft Extremities: normal inspection Edema: no edema noted Arm (L), no edema noted Arm (R), no edema noted Leg (L), no edema noted Leg (R), no edema noted Pedal (L), no edema noted Pedal (R), no edema noted Generalized Neurologic: responsive, motor weakness Skin: normal pigmentation, warm/dry BARBARA RAGLAND Aug 22, 2017 12:47
--- NOTE | 2017-08-22 13:04 | Neurology Progress Note ---
Interim History Interim History Interim History Mr. Granda feels better. His blood pressures are better controlled. He feels stronger in his legs and the entire left side is stronger. The pain is also better. He denies any new neurologic symptoms. He tolerated the Solu-Medrol well. Review of Systems Neuro Review of Systems Benign. Objective Physical Exam Last Vital Signs Date Time Temp Pulse Resp B/P (MAP) Pulse Ox O2 Delivery O2 Flow Rate FiO2 08/22/17 12:01 97.5 08/22/17 12:00 84 19 156/100 96 Room Air Laboratory Tests Test 08/22/17 08:30 White Blood Count 11.3 K/UL (4.8-10.8) H Red Blood Count 4.25 M/UL (4.70-6.10) L Hemoglobin 13.3 G/DL (14.2-18.0) L Hematocrit 39.6 % (42.0-52.0) L Mean Corpuscular Volume 93 FL (80-99) Mean Corpuscular Hemoglobin 31.2 PG (27.0-31.0) H Mean Corpuscular Hemoglobin Concent 33.5 G/DL (32.0-36.0) Red Cell Distribution Width 13.5 % (11.6-14.8) Platelet Count 216 K/UL (150-450) Mean Platelet Volume 7.9 FL (6.5-10.1) Neutrophils (%) (Auto) % (45.0-75.0) Lymphocytes (%) (Auto) % (20.0-45.0) Monocytes (%) (Auto) % (1.0-10.0) Eosinophils (%) (Auto) % (0.0-3.0) Basophils (%) (Auto) % (0.0-2.0) Differential Total Cells Counted 100 Neutrophils % (Manual) 89 % (45-75) H Lymphocytes % (Manual) 9 % (20-45) L Monocytes % (Manual) 1 % (1-10) Eosinophils % (Manual) 1 % (0-3) Basophils % (Manual) 0 % (0-2) Band Neutrophils 0 % (0-8) Platelet Estimate Adequate Platelet Morphology Normal Red Blood Cell Morphology Normal Sodium Level 133 MMOL/L (136-145) L Potassium Level 4.9 MMOL/L (3.5-5.1) Chloride Level 101 MMOL/L (98-107) Carbon Dioxide Level 26 MMOL/L (21-32) Anion Gap 7 mmol/L (5-15) Blood Urea Nitrogen 22 mg/dL (7-18) H Creatinine 1.4 MG/DL (0.55-1.30) H Estimat Glomerular Filtration Rate > 60 mL/min (>60) Glucose Level 268 MG/DL (74-106) #H Calcium Level 9.1 MG/DL (8.5-10.1) Neurologic Exam Objective PHYSICAL EXAMINATION: GENERAL: He is a well-developed, well-nourished, obese, black gentleman, lying in bed, in no acute distress. HEAD: Normocephalic and atraumatic. NECK: No neck rigidity was observed. EENT: Benign. NEUROLOGIC EXAMINATION: MENTAL STATUS EXAMINATION: He was awake and alert. He was oriented to person, place, and time. He was able to recall 3/3 words immediately, and in 1 minute and 3 minutes. He was able to remember presidents, Trump through Angel. His mathematical skills were fairly good. His visuospatial function was preserved. SPEECH: He had no dysarthria. LANGUAGE: He had no aphasia. CRANIAL NERVE EXAMINATION: II: The visual keller were intact on confrontation testing. III, IV & : The external ocular movements were full and the pupils 3 mm in diameter, equal, round, regular, and reactive to light. V: He had normal facial sensations and the temporales, masseters, and pterygoids functioned normally. VII: He had left seventh central facial paresis. VIII: He was able to hear well bilaterally. He had no nystagmus, but his saccades were jerky. IX: The palate moved symmetrically on phonation. X: He had no hoarseness of voice. XI: The sternocleidomastoids and trapezii functions normally. XII: The tongue was in the midline without any fasciculations or atrophy. MOTOR SYSTEM: The tone was increased in both lower extremities with significant degree of spasticity . Examination of muscle mass revealed no focal muscle wasting. Examination of power was difficult to perform because of give-way weakness. He, however, had approximately G 5/5 power except for G 4-/ 5 power in the left iliopsoas, G 4+/5 power in the left ankle dorsiflexors and toe extensors. SENSORY EXAMINATION: He complained of altered sensations in his entire left lower extremity in on nondermatomal nonneurogenic fashion. Position sense was normal in the fingers bilaterally, but was diminished in the toes bilaterally. REFLEXES: 1+ and bilaterally symmetrical at the biceps, triceps, and brachioradialis, 1+ on the right and 2++ on the left at the knees. 0 at both ankles. The plantar responses were flexor on the right and extensor on the left. COORDINATION: [id number]-[id number] testing was clumsy bilaterally. He was unable to perform [id number]-tq-uluu testing. STANCE: He stood up with support. GAIT: He walked with a left greater than right paraparetic gait - however his gait was definitely better. Impression/Recommendations Diagnostic Impression 1. Mr. Teto Granda is a 52-year-old, right-handed, black gentleman, with past history of multiple sclerosis, diagnosed in 2002, treated with different disease -modifying agents including Avonex, Copaxone, and Tysabri. However, for the last few years, he has been on no disease-modifying agent. His exacerbations have been treated with pulse dose Solu-Medrol. He feels that in the last two weeks, he has been having increasing neck pain radiating into his entire body, increasing left leg pain, and increasing difficulty with walking. He feels that this is due to an acute exacerbation of his multiple sclerosis. 2. He feels better. His blood pressures are better controlled. He feels stronger in his legs and the entire left side is stronger. The pain is also better. He denies any new neurologic symptoms. He tolerated the Solu-Medrol well. 3. On neurological examination, at this time, he does have problems with recent and remote memory, a trace left seventh central facial paresis, jerky saccades, bilateral lower extremity spasticity, left lower extremity paresis involving the proximal and distal muscles, altered sensations in his entire left lower extremity, a brisk left knee jerk, decreased position sense in the toes bilaterally, and a left greater than right paraplegic gait. However he is definitely stronger today and his gait is also better. 4. The patient's history and neurological examination are most compatible with a possible exacerbation of his multiple sclerosis. In addition, his hypertension was also out of control, but is under better control now. Recommendations 1. Continue blood pressure control. 2. Solu-Medrol 1 g daily for a total of three doses. 3. The patient was encouraged to see his usual neurologist, Dr. Rico Carcamo, to start him on a disease-modifying agent. Marilou Castle M.D., M.S.P.Gena. MARILOU CASTLE Aug 22, 2017 13:04
[2017-08-22 16:00] VITALS: BP 148/105
--- NOTE | 2017-08-22 16:23 | Cardiac Electrophysiology PN ---
Assessment/Plan Assessment/Plan 1. Chest pain. Ruled out for myocardial infarction. His stress test in the past has been negative. 2. Accelerated hypertension. Blood pressure is better, on Norvasc 10 mg daily, clonidine 0.2 mg b.i.d., hydralazine 50 mg b.i.d., hydrochlorothiazide 50 mg daily, and metoprolol 100 mg b.i.d. 3. Multiple sclerosis. Further evaluation by Dr. Franco. PARISH RN Subjective Subjective Feeling better. No chest pain. Headache better. Objective Last 24 Hour Vital Signs Date Time Temp Pulse Resp B/P (MAP) Pulse Ox O2 Delivery O2 Flow Rate FiO2 08/22/17 16:00 97.5 84 19 148/105 96 Room Air 97.5 08/22/17 15:40 97.5 08/22/17 15:10 97.5 08/22/17 12:01 97.5 08/22/17 12:00 83 08/22/17 12:00 97.5 84 19 156/100 96 Room Air 97.5 08/22/17 11:35 97.5 08/22/17 11:05 97.5 08/22/17 09:26 158/112 08/22/17 09:25 92 158/112 08/22/17 09:25 92 158/112 08/22/17 09:24 158/112 08/22/17 08:00 97.5 92 19 158/112 96 Room Air 97.5 08/22/17 08:00 98 08/22/17 04:00 97.5 82 19 140/79 96 Room Air 97.5 08/22/17 04:00 87 08/22/17 02:28 97.2 08/22/17 00:00 97.2 80 19 132/61 93 Room Air 97.2 08/22/17 00:00 105 08/21/17 21:07 90 120/79 08/21/17 20:00 90 08/21/17 20:00 97.6 85 19 120/79 96 Room Air 97.6 08/21/17 18:02 97.9 08/21/17 17:01 144/79 08/21/17 17:00 144/79 08/21/17 16:51 97.9 Intake and Output 08/21/17 08/22/17 19:00 07:00 Intake Total 1360 ml Balance 1360 ml IV Total 360 ml Other 1000 ml # Voids 5 2 # Bowel Movements 2 Laboratory Tests Test 08/22/17 08:30 White Blood Count 11.3 K/UL (4.8-10.8) H Red Blood Count 4.25 M/UL (4.70-6.10) L Hemoglobin 13.3 G/DL (14.2-18.0) L Hematocrit 39.6 % (42.0-52.0) L Mean Corpuscular Volume 93 FL (80-99) Mean Corpuscular Hemoglobin 31.2 PG (27.0-31.0) H Mean Corpuscular Hemoglobin Concent 33.5 G/DL (32.0-36.0) Red Cell Distribution Width 13.5 % (11.6-14.8) Platelet Count 216 K/UL (150-450) Mean Platelet Volume 7.9 FL (6.5-10.1) Neutrophils (%) (Auto) % (45.0-75.0) Lymphocytes (%) (Auto) % (20.0-45.0) Monocytes (%) (Auto) % (1.0-10.0) Eosinophils (%) (Auto) % (0.0-3.0) Basophils (%) (Auto) % (0.0-2.0) Differential Total Cells Counted 100 Neutrophils % (Manual) 89 % (45-75) H Lymphocytes % (Manual) 9 % (20-45) L Monocytes % (Manual) 1 % (1-10) Eosinophils % (Manual) 1 % (0-3) Basophils % (Manual) 0 % (0-2) Band Neutrophils 0 % (0-8) Platelet Estimate Adequate Platelet Morphology Normal Red Blood Cell Morphology Normal Sodium Level 133 MMOL/L (136-145) L Potassium Level 4.9 MMOL/L (3.5-5.1) Chloride Level 101 MMOL/L (98-107) Carbon Dioxide Level 26 MMOL/L (21-32) Anion Gap 7 mmol/L (5-15) Blood Urea Nitrogen 22 mg/dL (7-18) H Creatinine 1.4 MG/DL (0.55-1.30) H Estimat Glomerular Filtration Rate > 60 mL/min (>60) Glucose Level 268 MG/DL (74-106) #H Calcium Level 9.1 MG/DL (8.5-10.1) Objective HEAD AND NECK: No JVD or carotid bruits. LUNGS: Clear. CARDIOVASCULAR: Regular S1 and S2 with no gallop or murmur. ABDOMEN: Soft. EXTREMITIES: No pitting edema. Joni Ferguson MD Aug 22, 2017 16:23
[2017-08-22] MEDS: LORazepam 1mg tab ORAL PRN (18:27)
[2017-08-22 20:00] VITALS: BP 156/100
[2017-08-22] MEDS: methylPREDNISolone Sod Succ 1,000 MG in NS 275 ML IVPB SCH (20:28)
[2017-08-23] VITALS: BP 162/91
[2017-08-23] MEDS: HYDROcodone/Acetamin 10/325 tab ORAL PRN ×3 (03:14→21:10)
[2017-08-23] MEDS: LORazepam 1mg tab ORAL PRN (04:07)
[2017-08-23 08:00] VITALS: BP 157/114
[2017-08-23] MEDS: Relistor 12mg/0.6ml Vial SUBQ SCH (09:00)
--- NOTE | 2017-08-23 09:12 | General Progress Note ---
Assessment/Plan Problem List: (1) Neck sprain ICD Codes: S13.9XXA - Neck sprain SNOMED: 823694310 (2) Hypertension ICD Codes: I10 - Essential (primary) hypertension SNOMED: 63046865 (3) Multiple sclerosis (4) Low back pain ICD Codes: M54.5 - Low back pain SNOMED: 401544381 Status: unchanged Assessment/Plan ot pt diet bp pain control cbc bmp am brotman aru eval Subjective Constitutional: Reports: weakness Allergies: Coded Allergies: KETOROLAC (Verified Allergy, Severe, Anaphylaxis, 06/19/15) All Systems: reviewed and negative except above Subjective o2nc c/o gen body pain Objective Last 24 Hour Vital Signs Date Time Temp Pulse Resp B/P (MAP) Pulse Ox O2 Delivery O2 Flow Rate FiO2 08/23/17 04:00 75 08/23/17 00:00 78 08/23/17 00:00 98.0 76 20 162/91 94 Room Air 98.0 08/22/17 20:29 77 156/100 08/22/17 20:00 98.0 77 20 156/100 96 Room Air 98.0 08/22/17 20:00 78 08/22/17 18:27 97.5 08/22/17 17:07 148/105 08/22/17 17:05 148/105 08/22/17 16:00 86 08/22/17 16:00 97.5 84 19 148/105 96 Room Air 97.5 08/22/17 15:40 97.5 08/22/17 15:10 97.5 08/22/17 12:01 97.5 08/22/17 12:00 83 08/22/17 12:00 97.5 84 19 156/100 96 Room Air 97.5 08/22/17 11:35 97.5 08/22/17 11:05 97.5 08/22/17 09:26 158/112 08/22/17 09:25 92 158/112 08/22/17 09:25 92 158/112 08/22/17 09:24 158/112 Intake and Output 08/22/17 08/23/17 19:00 07:00 Intake Total 1420 ml Balance 1420 ml Intake Oral 700 ml IV Total 720 ml # Voids 5 5 Height (Feet): 6 Height (Inches): 0.00 Weight (Pounds): 225 General Appearance: alert EENT: normal ENT inspection Neck: normal alignment Cardiovascular: normal peripheral pulses, normal rate, regular rhythm Respiratory/Chest: chest wall non-tender, lungs clear, normal breath sounds Abdomen: normal bowel sounds, non tender, soft Extremities: normal inspection Edema: no edema noted Arm (L), no edema noted Arm (R), no edema noted Leg (L), no edema noted Leg (R), no edema noted Pedal (L), no edema noted Pedal (R), no edema noted Generalized Neurologic: motor weakness Skin: normal pigmentation, warm/dry BARBARA RAGLAND Aug 23, 2017 09:12
[2017-08-23] MEDS: Methocarbamol 750mg tab ORAL SCH ×3 (09:18→18:52)
[2017-08-23] MEDS: HydrALAZINE 50mg tab ORAL SCH ×2 (09:19→18:52)
[2017-08-23] MEDS: Aspirin EC 81mg tab ORAL SCH (09:20)
[2017-08-23] MEDS: cloNIDine 0.2mg Tab ORAL SCH ×2 (09:23→18:52)
[2017-08-23 12:00] VITALS: BP 163/107
[2017-08-23] MEDS: D5 1/2NS 1,000 ML IV SCH (13:52)
[2017-08-23 16:00] VITALS: BP 174/111
[2017-08-23 20:00] VITALS: BP 162/110
--- NOTE | 2017-08-23 20:18 | Neurology Progress Note ---
Interim History Interim History Interim History Mr. Granda feels better. His blood pressures are better controlled. He feels stronger in his legs and the entire left side is stronger. The pain is also better. He denies any new neurologic symptoms. He tolerated all 3 doses of Solu-Medrol well. Review of Systems Neuro Review of Systems Benign. Objective Physical Exam Last Vital Signs Date Time Temp Pulse Resp B/P (MAP) Pulse Ox O2 Delivery O2 Flow Rate FiO2 08/23/17 18:52 168/106 08/23/17 18:30 97.5 08/23/17 16:00 88 08/23/17 16:00 18 97 Room Air Neurologic Exam Objective PHYSICAL EXAMINATION: GENERAL: He is a well-developed, well-nourished, obese, black gentleman, lying in bed, in no acute distress. HEAD: Normocephalic and atraumatic. NECK: No neck rigidity was observed. EENT: Benign. NEUROLOGIC EXAMINATION: MENTAL STATUS EXAMINATION: He was awake and alert. He was oriented to person, place, and time. He was able to recall 3/3 words immediately, and in 1 minute and 3 minutes. He was able to remember presidents, Trump through Angel. His mathematical skills were fairly good. His visuospatial function was preserved. SPEECH: He had no dysarthria. LANGUAGE: He had no aphasia. CRANIAL NERVE EXAMINATION: II: The visual keller were intact on confrontation testing. III, IV & : The external ocular movements were full and the pupils 3 mm in diameter, equal, round, regular, and reactive to light. V: He had normal facial sensations and the temporales, masseters, and pterygoids functioned normally. VII: He had left seventh central facial paresis. VIII: He was able to hear well bilaterally. He had no nystagmus, but his saccades were jerky. IX: The palate moved symmetrically on phonation. X: He had no hoarseness of voice. XI: The sternocleidomastoids and trapezii functions normally. XII: The tongue was in the midline without any fasciculations or atrophy. MOTOR SYSTEM: The tone was increased in both lower extremities with significant degree of spasticity . Examination of muscle mass revealed no focal muscle wasting. Examination of power was difficult to perform because of give-way weakness. He, however, had approximately G 5/5 power except for G 4-/ 5 power in the left iliopsoas, G 4+/5 power in the left ankle dorsiflexors and toe extensors. SENSORY EXAMINATION: He complained of altered sensations in his entire left lower extremity in on nondermatomal nonneurogenic fashion. Position sense was normal in the fingers bilaterally, but was diminished in the toes bilaterally. REFLEXES: 1+ and bilaterally symmetrical at the biceps, triceps, and brachioradialis, 1+ on the right and 2++ on the left at the knees. 0 at both ankles. The plantar responses were flexor on the right and extensor on the left. COORDINATION: Pcxgqz-uy-terw testing was clumsy bilaterally. He was unable to perform czej-ix-ddix testing. STANCE: He stood up with support. GAIT: He walked with a left greater than right paraparetic gait - however his gait was definitely better. Impression/Recommendations Diagnostic Impression 1. Mr. Teto Granda is a 52-year-old, right-handed, black gentleman, with past history of multiple sclerosis, diagnosed in 2002, treated with different disease -modifying agents including Avonex, Copaxone, and Tysabri. However, for the last few years, he has been on no disease-modifying agent. His exacerbations have been treated with pulse dose Solu-Medrol. He feels that in the last two weeks, he has been having increasing neck pain radiating into his entire body, increasing left leg pain, and increasing difficulty with walking. He feels that this is due to an acute exacerbation of his multiple sclerosis. 2. He feels better. His blood pressures are better controlled. He feels stronger in his legs and the entire left side is stronger. The pain is also better. He denies any new neurologic symptoms. He tolerated all 3 doses of Solu- Medrol well. 3. On neurological examination, at this time, he does have problems with recent and remote memory, a trace left seventh central facial paresis, jerky saccades, bilateral lower extremity spasticity, left lower extremity paresis involving the proximal and distal muscles, altered sensations in his entire left lower extremity, a brisk left knee jerk, decreased position sense in the toes bilaterally, and a left greater than right paraplegic gait. However he is definitely stronger today and his gait is also better. 4. The patient's history and neurological examination are most compatible with a possible exacerbation of his multiple sclerosis. In addition, his hypertension was also out of control, but is under better control now. Recommendations 1. Continue blood pressure control. 2. The patient was encouraged to see his usual neurologist, Dr. Rico Carcamo, to start him on a disease-modifying agent. 3. Can be discharged from a neurologic point of view. Marilou Castle M.D., M.S.P.H. MARILOU CASTLE Aug 23, 2017 20:18
[2017-08-23] MEDS: methylPREDNISolone Sod Succ 1,000 MG in NS 275 ML IVPB SCH (21:05)
--- NOTE | 2017-08-23 23:00 | Consultation ---
DATE OF CONSULTATION: 08/23/2017 CONSULTING PHYSICIAN: Gricelda Granda M.D. HISTORY OF PRESENT ILLNESS: The patient is a 52-year-old male patient with hypertension and multiple sclerosis. The patient was admitted secondary to multiple sclerosis anxiety and agitation. Because of his altered confusion, his cognition has declined below baseline. Due to the anxiety and multiple sclerosis, that is why his attending has requested daily psychiatric consultation. SOCIAL HISTORY: He is financially supported by [employer] and Medicare. SUBSTANCE ABUSE HISTORY: Denies street drug and alcohol use. ALLERGIES: The patient has allergies to ketorolac. PSYCHIATRIC HISTORY: Generalized anxiety disorder. MEDICAL HISTORY: History of multiple sclerosis and hypertension. Please see Internal Medicine note for further details. STRENGTHS: He is moderately better and has a place to live. WEAKNESSES: Impulsive and minimal support system. MENTAL STATUS EXAMINATION: This is a 52-year-old male patient. Appearance is disheveled. Attitude, irritable and agitated. Affect, guarded and restricted. Intellect poor. Mood is depressed and anxious. Motor activity, psychomotor agitation. Attention span is poor. Orientation x2. Speech is low volume and slurred. Thought process is disorganized. Thought content, slight paranoia. Insight and judgment is poor. Denies suicidal or homicidal thoughts. DIAGNOSES: 1. Major depressive disorder, mild, recurrent without psychotic features, rule out generalized anxiety disorder. 2. Medical, hypertension and multiple sclerosis. 3. Psychosocial stressors, financial stressors as well as his diagnosis. PLAN: Continue treatment with Cymbalta 40 mg daily, Neurontin 300 mg 3 times a day, and Ativan 1 mg every 6 hours p.r.n. anxiety. Provided 20 minutes of supportive therapy with Internal Medicine supportive therapy provided. Chart was reviewed and discussed with staff. The patient was seen and assessed at bedside. Gricelda Granda M.D. DR: AGUSTIN JOB#: [id number] CC:
[2017-08-24] VITALS: BP 161/95
[2017-08-24] MEDS: LORazepam 1mg tab ORAL PRN ×2 (00:11→09:39)
[2017-08-24 04:00] VITALS: BP 160/105
[2017-08-24] MEDS: D5 1/2NS 1,000 ML IV SCH (05:54)
[2017-08-24] MEDS: HYDROcodone/Acetamin 10/325 tab ORAL PRN ×2 (05:56→17:01)
[2017-08-24 08:00] VITALS: BP 159/103
--- NOTE | 2017-08-24 08:32 | General Progress Note ---
Assessment/Plan Problem List: (1) Neck sprain ICD Codes: S13.9XXA - Neck sprain SNOMED: 400043237 (2) Hypertension ICD Codes: I10 - Essential (primary) hypertension SNOMED: 22402427 (3) Multiple sclerosis (4) Low back pain ICD Codes: M54.5 - Low back pain SNOMED: 282256655 Status: stable, progressing, tolerating diet Assessment/Plan ot pt diet bp pain control cbc bmp am marla shelley Subjective Constitutional: Reports: weakness Allergies: Coded Allergies: KETOROLAC (Verified Allergy, Severe, Anaphylaxis, 06/19/15) All Systems: reviewed and negative except above Subjective o2nc c/o gen body pain Objective Last 24 Hour Vital Signs Date Time Temp Pulse Resp B/P (MAP) Pulse Ox O2 Delivery O2 Flow Rate FiO2 08/24/17 07:28 97.9 08/24/17 06:57 97.9 08/24/17 04:00 97.9 63 20 160/105 99 Room Air 97.9 08/24/17 04:00 61 08/24/17 00:00 97.5 73 20 161/95 98 Room Air 97.5 08/24/17 00:00 68 08/23/17 21:06 78 162/110 08/23/17 20:00 97.7 78 20 162/110 98 Room Air 97.7 08/23/17 20:00 69 08/23/17 18:52 168/106 08/23/17 18:52 168/106 08/23/17 18:30 97.5 08/23/17 16:00 88 08/23/17 16:00 97.5 111 18 174/111 97 Room Air 97.5 08/23/17 14:59 97.5 08/23/17 14:07 165/99 08/23/17 13:52 97.5 08/23/17 12:00 97.5 110 18 163/107 94 Room Air 97.5 08/23/17 12:00 95 08/23/17 09:23 157/114 08/23/17 09:21 98.0 08/23/17 09:19 93 157/114 08/23/17 09:19 157/114 08/23/17 09:18 93 157/114 Intake and Output 08/23/17 08/24/17 19:00 07:00 Intake Total 1320 ml 981 ml Output Total 5 ml Balance 1320 ml 976 ml Intake Oral 720 ml IV Total 600 ml 981 ml Output Urine Total 5 ml # Voids 3 Height (Feet): 6 Height (Inches): 0.00 Weight (Pounds): 225 General Appearance: alert EENT: normal ENT inspection Neck: normal alignment Cardiovascular: normal peripheral pulses, normal rate, regular rhythm Respiratory/Chest: chest wall non-tender, lungs clear, normal breath sounds Abdomen: normal bowel sounds, non tender, soft Extremities: normal inspection Edema: no edema noted Arm (L), no edema noted Arm (R), no edema noted Leg (L), no edema noted Leg (R), no edema noted Pedal (L), no edema noted Pedal (R), no edema noted Generalized Neurologic: responsive, motor weakness Skin: normal pigmentation, warm/dry BARBARA RAGLAND Aug 24, 2017 08:32
[2017-08-24] MEDS: cloNIDine 0.2mg Tab ORAL SCH ×2 (08:42→17:00)
[2017-08-24] MEDS: Aspirin EC 81mg tab ORAL SCH (08:43)
[2017-08-24] MEDS: Methocarbamol 750mg tab ORAL SCH ×3 (08:44→16:59)
[2017-08-24] MEDS: HydrALAZINE 50mg tab ORAL SCH ×2 (08:44→17:00)
[2017-08-24] MEDS: Relistor 12mg/0.6ml Vial SUBQ SCH (08:45)
[2017-08-24 08:55] LABS: HEMATOCRIT 40.8 % (42.0-52.0); HEMOGLOBIN 13.7 G/DL (14.2-18.0); MEAN CORPUSCULAR VOLUME 93 FL (80-99); PLATELET COUNT 176 K/UL (150-450); RED CELL DISTRIBUTION WIDTH 13.6 % (11.6-14.8); WHITE BLOOD COUNT 11.1 K/UL (4.8-10.8)
[2017-08-24 09:42] LABS: ANION GAP 13 mmol/L (5-15); BLOOD UREA NITROGEN 26 mg/dL (7-18); CALCIUM 9.4 MG/DL (8.5-10.1); CARBON DIOXIDE 27 MMOL/L (21-32); CHLORIDE 98 MMOL/L (98-107); CREATININE 1.2 MG/DL (0.55-1.30); SODIUM 137 MMOL/L (136-145)
[2017-08-24 12:00] VITALS: BP 148/87
--- NOTE | 2017-08-24 16:45 | Cardiac Electrophysiology PN ---
Assessment/Plan Assessment/Plan 1. Chest pain. Ruled out for myocardial infarction. His stress test in the past has been negative. 2. Accelerated hypertension. Continue Norvasc 10 mg daily, clonidine 0.2 mg b.i.d., increase hydralazine to 100 mg b.i.d., hydrochlorothiazide 50 mg daily, and metoprolol 100 mg b.i.d. 3. Multiple sclerosis. Further evaluation by Dr. Franco. PARISH RN Subjective Subjective Comfortable in NAD. No chest pain. BP still high Objective Last 24 Hour Vital Signs Date Time Temp Pulse Resp B/P (MAP) Pulse Ox O2 Delivery O2 Flow Rate FiO2 08/24/17 13:01 97.7 08/24/17 12:31 97.7 08/24/17 12:00 74 08/24/17 12:00 97.7 77 18 148/87 95 Room Air 97.7 08/24/17 08:45 76 159/103 08/24/17 08:44 159/103 08/24/17 08:42 76 159/103 08/24/17 08:42 159/103 08/24/17 08:00 78 08/24/17 08:00 97.5 76 18 159/103 95 Room Air 97.5 08/24/17 07:28 97.9 08/24/17 06:57 97.9 08/24/17 04:00 97.9 63 20 160/105 99 Room Air 97.9 08/24/17 04:00 61 08/24/17 00:00 97.5 73 20 161/95 98 Room Air 97.5 08/24/17 00:00 68 08/23/17 21:06 78 162/110 08/23/17 20:00 97.7 78 20 162/110 98 Room Air 97.7 08/23/17 20:00 69 08/23/17 18:52 168/106 08/23/17 18:52 168/106 Intake and Output 08/23/17 08/24/17 19:00 07:00 Intake Total 1320 ml 981 ml Output Total 5 ml Balance 1320 ml 976 ml Intake Oral 720 ml IV Total 600 ml 981 ml Output Urine Total 5 ml # Voids 3 Laboratory Tests Test 08/24/17 08:10 White Blood Count 11.1 K/UL (4.8-10.8) H Red Blood Count 4.40 M/UL (4.70-6.10) L Hemoglobin 13.7 G/DL (14.2-18.0) L Hematocrit 40.8 % (42.0-52.0) L Mean Corpuscular Volume 93 FL (80-99) Mean Corpuscular Hemoglobin 31.1 PG (27.0-31.0) H Mean Corpuscular Hemoglobin Concent 33.5 G/DL (32.0-36.0) Red Cell Distribution Width 13.6 % (11.6-14.8) Platelet Count 176 K/UL (150-450) Mean Platelet Volume 7.2 FL (6.5-10.1) Neutrophils (%) (Auto) % (45.0-75.0) Lymphocytes (%) (Auto) % (20.0-45.0) Monocytes (%) (Auto) % (1.0-10.0) Eosinophils (%) (Auto) % (0.0-3.0) Basophils (%) (Auto) % (0.0-2.0) Differential Total Cells Counted 100 Neutrophils % (Manual) 88 % (45-75) H Lymphocytes % (Manual) 6 % (20-45) L Monocytes % (Manual) 6 % (1-10) Eosinophils % (Manual) 0 % (0-3) Basophils % (Manual) 0 % (0-2) Band Neutrophils 0 % (0-8) Platelet Estimate Adequate Platelet Morphology Normal Red Blood Cell Morphology Normal Sodium Level 137 MMOL/L (136-145) Potassium Level 4.0 MMOL/L (3.5-5.1) Chloride Level 98 MMOL/L (98-107) Carbon Dioxide Level 27 MMOL/L (21-32) Anion Gap 13 mmol/L (5-15) Blood Urea Nitrogen 26 mg/dL (7-18) H Creatinine 1.2 MG/DL (0.55-1.30) Estimat Glomerular Filtration Rate > 60 mL/min (>60) Glucose Level 289 MG/DL (74-106) H Calcium Level 9.4 MG/DL (8.5-10.1) Objective HEAD AND NECK: No JVD or carotid bruits. LUNGS: Clear. CARDIOVASCULAR: Regular S1 and S2 with no gallop or murmur. ABDOMEN: Soft. EXTREMITIES: No pitting edema. Toluie,Joni MD Aug 24, 2017 16:45
[2017-08-24 16:47] VITALS: BP 176/108
[2017-08-24] MEDS ORDERED: HydrALAZINE 50mg tab ORAL SCH (17:00)
--- NOTE | 2017-08-24 17:53 | General Progress Note ---
Assessment/Plan Assessment/Plan (1) Multiple Sclerosis (2) Neuropathic pain (3) Cervical DDD (4) Cervical spondylosis (5) Lumbar DDD (6) Lumbar spondylosis (7) Narcotic Dependency (8) Opioid induced constipation Patient will be continued on the Dilaudid and discontinue Southold. We will start Percocet 10/325mg PO 1 tab Q4H PRN moderate pain. Pt was d/w Dr. Scott and he concurred. Subjective Date patient seen: Aug 24, 2017 Time patient seen: 05:40 - pm Allergies: Coded Allergies: KETOROLAC (Verified Allergy, Severe, Anaphylaxis, 06/19/15) Subjective Constitutional: Reports: weakness, Denies: chills, diaphoresis, fever, malaise , no symptoms, other HEENT: Denies: blurred vision, double vision, ear discharge, ear pain, eye pain , mouth pain, mouth swelling, no symptoms, nose congestion, nose pain, other, tearing, throat pain, throat swelling Cardiovascular: Denies: edema, irregular heart rate, lightheadedness, no symptoms, other, palpitations, syncope Respiratory: Denies: SOB at rest, SOB with excertion, cough, no symptoms, orthopnea, other, shortness of breath, sputum, stridor, wheezing Gastrointestinal/Abdominal: Denies: abdomen distended, abdominal pain, black stools, blood in stool, constipated, diarrhea, difficulty swallowing, nausea, no symptoms, other, poor appetite, poor fluid intake, rectal bleeding, tarry stools, vomiting Genitourinary: Denies: burning, discharge, flank pain, frequency, hematuria, incontinence, no symptoms, other, pain, urgency Neurologic/Psychiatric: Reports: weakness, Denies: anxiety, depressed, emotional problems, headache, no symptoms, numbness, other, paresthesia, pre- existing deficit, seizure, tingling, tremors Endocrine: Denies: excessive sweating, flushing, increased hunger, increased thirst, increased urine, intolerance to cold, intolerance to heat, no symptoms, other, unexplained weight gain, unexplained weight loss Hematologic/Lymphatic: Denies: anemia, easy bleeding, easy bruising, no symptoms, other Subjective Patient is in bed sitting up in bed and reports continued pain. Southold with no relief. Continues to request the Dilaudid. Objective Last 24 Hour Vital Signs Date Time Temp Pulse Resp B/P (MAP) Pulse Ox O2 Delivery O2 Flow Rate FiO2 08/24/17 17:01 97.2 08/24/17 17:00 176/108 08/24/17 17:00 176/108 08/24/17 16:47 97.2 79 20 176/108 95 Room Air 97.2 08/24/17 13:01 97.7 08/24/17 12:31 97.7 08/24/17 12:00 74 08/24/17 12:00 97.7 77 18 148/87 95 Room Air 97.7 08/24/17 08:45 76 159/103 08/24/17 08:44 159/103 08/24/17 08:42 76 159/103 08/24/17 08:42 159/103 08/24/17 08:00 78 08/24/17 08:00 97.5 76 18 159/103 95 Room Air 97.5 08/24/17 07:28 97.9 08/24/17 06:57 97.9 08/24/17 04:00 97.9 63 20 160/105 99 Room Air 97.9 08/24/17 04:00 61 08/24/17 00:00 97.5 73 20 161/95 98 Room Air 97.5 08/24/17 00:00 68 08/23/17 21:06 78 162/110 08/23/17 20:00 97.7 78 20 162/110 98 Room Air 97.7 08/23/17 20:00 69 08/23/17 18:52 168/106 08/23/17 18:52 168/106 Intake and Output 08/23/17 08/24/17 19:00 07:00 Intake Total 1320 ml 981 ml Output Total 5 ml Balance 1320 ml 976 ml Intake Oral 720 ml IV Total 600 ml 981 ml Output Urine Total 5 ml # Voids 3 Laboratory Tests 08/24/17 08:10: White Blood Count 11.1H, Red Blood Count 4.40L, Hemoglobin 13.7L, Hematocrit 40.8L, Mean Corpuscular Volume 93, Mean Corpuscular Hemoglobin 31.1H, Mean Corpuscular Hemoglobin Concent 33.5, Red Cell Distribution Width 13.6, Platelet Count 176, Mean Platelet Volume 7.2, Neutrophils (%) (Auto) , Lymphocytes (%) ( Auto) , Monocytes (%) (Auto) , Eosinophils (%) (Auto) , Basophils (%) (Auto) , Differential Total Cells Counted 100, Neutrophils % (Manual) 88H, Lymphocytes % (Manual) 6L, Monocytes % (Manual) 6, Eosinophils % (Manual) 0, Basophils % ( Manual) 0, Band Neutrophils 0, Platelet Estimate Adequate, Platelet Morphology Normal, Red Blood Cell Morphology Normal, Sodium Level 137, Potassium Level 4.0 , Chloride Level 98, Carbon Dioxide Level 27, Anion Gap 13, Blood Urea Nitrogen 26H, Creatinine 1.2, Estimat Glomerular Filtration Rate > 60, Glucose Level 289H , Calcium Level 9.4 Height (Feet): 6 Height (Inches): 0.00 Weight (Pounds): 225 Objective General Appearance: no apparent distress, alert EENT: PERRL/EOMI, normal ENT inspection Neck: non-tender, normal alignment Cardiovascular: normal peripheral pulses, normal rate, regular rhythm Respiratory/Chest: lungs clear, normal breath sounds Abdomen: non tender, soft Extremities: non-tender Edema: no edema noted Arm (L), no edema noted Arm (R), no edema noted Leg (L), no edema noted Leg (R), no edema noted Pedal (L), no edema noted Pedal (R), no edema noted Generalized Neurologic: alert, oriented x 3 Skin: warm/dry MAYCOL WILEY Aug 24, 2017 17:53
--- NOTE | 2017-08-24 19:00 | Progress Note ---
DATE: 08/24/2017 The patient is a 52-year-old male patient who MS flare. This patient still has some anxiety, mood lability and depression worsened by the stress of his medical illness. That is why, his attending has requested daily psychiatric consultation. MENTAL STATUS EVALUATION: The patient is a 52-year-old male. Appearance is disheveled. Attitude irritable and agitated. Affect, guarded and restricted. Intellect poor. Mood is depressed and anxious. Motor activity, psychomotor agitation. Attention is poor. Orientation x2. Speech is pressured. Thought process, disorganized. Thought content, paranoid delusions. Insight and judgment poor. DIAGNOSIS: Major depressive disorder, mild, recurrent, without psychotic features. PLAN: About 20 minutes of supportive therapy provided. Cymbalta 40 mg daily, Neurontin 300 mg three times a day. 20 minutes of supportive therapy provided. Chart reviewed and discussed with staff. Gricelda Granda M.D. DR: ASTER JOB#: [id number] CC:
--- NOTE | 2017-08-24 19:48 | Neurology Progress Note ---
Interim History Interim History Interim History Mr. Granda feels unwell today. He has had increased neck pain. His blood pressures are again running high. He feels stronger in his legs and the entire left side is stronger. The pain is also better. He denies any new neurologic symptoms. Review of Systems Neuro Review of Systems Benign. Objective Physical Exam Last Vital Signs Date Time Temp Pulse Resp B/P (MAP) Pulse Ox O2 Delivery O2 Flow Rate FiO2 08/24/17 17:01 97.2 08/24/17 17:00 176/108 08/24/17 16:47 79 20 95 Room Air Laboratory Tests Test 08/24/17 08:10 White Blood Count 11.1 K/UL (4.8-10.8) H Red Blood Count 4.40 M/UL (4.70-6.10) L Hemoglobin 13.7 G/DL (14.2-18.0) L Hematocrit 40.8 % (42.0-52.0) L Mean Corpuscular Volume 93 FL (80-99) Mean Corpuscular Hemoglobin 31.1 PG (27.0-31.0) H Mean Corpuscular Hemoglobin Concent 33.5 G/DL (32.0-36.0) Red Cell Distribution Width 13.6 % (11.6-14.8) Platelet Count 176 K/UL (150-450) Mean Platelet Volume 7.2 FL (6.5-10.1) Neutrophils (%) (Auto) % (45.0-75.0) Lymphocytes (%) (Auto) % (20.0-45.0) Monocytes (%) (Auto) % (1.0-10.0) Eosinophils (%) (Auto) % (0.0-3.0) Basophils (%) (Auto) % (0.0-2.0) Differential Total Cells Counted 100 Neutrophils % (Manual) 88 % (45-75) H Lymphocytes % (Manual) 6 % (20-45) L Monocytes % (Manual) 6 % (1-10) Eosinophils % (Manual) 0 % (0-3) Basophils % (Manual) 0 % (0-2) Band Neutrophils 0 % (0-8) Platelet Estimate Adequate Platelet Morphology Normal Red Blood Cell Morphology Normal Sodium Level 137 MMOL/L (136-145) Potassium Level 4.0 MMOL/L (3.5-5.1) Chloride Level 98 MMOL/L (98-107) Carbon Dioxide Level 27 MMOL/L (21-32) Anion Gap 13 mmol/L (5-15) Blood Urea Nitrogen 26 mg/dL (7-18) H Creatinine 1.2 MG/DL (0.55-1.30) Estimat Glomerular Filtration Rate > 60 mL/min (>60) Glucose Level 289 MG/DL (74-106) H Calcium Level 9.4 MG/DL (8.5-10.1) Neurologic Exam Objective PHYSICAL EXAMINATION: GENERAL: He is a well-developed, well-nourished, obese, black gentleman, lying in bed, in no acute distress. HEAD: Normocephalic and atraumatic. NECK: No neck rigidity was observed. EENT: Benign. NEUROLOGIC EXAMINATION: MENTAL STATUS EXAMINATION: He was awake and alert. He was oriented to person, place, and time. He was able to recall 3/3 words immediately, and in 1 minute and 3 minutes. He was able to remember presidents, Trump through Angel. His mathematical skills were fairly good. His visuospatial function was preserved. SPEECH: He had no dysarthria. LANGUAGE: He had no aphasia. CRANIAL NERVE EXAMINATION: II: The visual keller were intact on confrontation testing. III, IV & : The external ocular movements were full and the pupils 3 mm in diameter, equal, round, regular, and reactive to light. V: He had normal facial sensations and the temporales, masseters, and pterygoids functioned normally. VII: He had left seventh central facial paresis. VIII: He was able to hear well bilaterally. He had no nystagmus, but his saccades were jerky. IX: The palate moved symmetrically on phonation. X: He had no hoarseness of voice. XI: The sternocleidomastoids and trapezii functions normally. XII: The tongue was in the midline without any fasciculations or atrophy. MOTOR SYSTEM: The tone was increased in both lower extremities with significant degree of spasticity . Examination of muscle mass revealed no focal muscle wasting. Examination of power was difficult to perform because of give-way weakness. He, however, had approximately G 5/5 power except for G 4-/ 5 power in the left iliopsoas, G 4+/5 power in the left ankle dorsiflexors and toe extensors. SENSORY EXAMINATION: He complained of altered sensations in his entire left lower extremity in on nondermatomal nonneurogenic fashion. Position sense was normal in the fingers bilaterally, but was diminished in the toes bilaterally. REFLEXES: 1+ and bilaterally symmetrical at the biceps, triceps, and brachioradialis, 1+ on the right and 2++ on the left at the knees. 0 at both ankles. The plantar responses were flexor on the right and extensor on the left. COORDINATION: [id number] testing was performed well. He was unable to perform akzr-dh-riom testing. STANCE: He stood up with support. GAIT: He walked with a left greater than right paraparetic gait - however his gait was definitely better. Impression/Recommendations Diagnostic Impression 1. Mr. Teto Granda is a 52-year-old, right-handed, black gentleman, with past history of multiple sclerosis, diagnosed in 2002, treated with different disease -modifying agents including Avonex, Copaxone, and Tysabri. However, for the last few years, he has been on no disease-modifying agent. His exacerbations have been treated with pulse dose Solu-Medrol. Two weeks prior to admission, he had been having increasing neck pain radiating into his entire body, increasing left leg pain, and increasing difficulty with walking. He felt that this was due to an acute exacerbation of his multiple sclerosis. 2. He feels unwell today. He has had increased neck pain. His blood pressures are again running high. He feels stronger in his legs and the entire left side is stronger. The pain is also better. He denies any new neurologic symptoms. 3. On neurological examination, at this time, he does have problems with recent and remote memory, a trace left seventh central facial paresis, jerky saccades, bilateral lower extremity spasticity, left lower extremity paresis involving the proximal and distal muscles, altered sensations in his entire left lower extremity, a brisk left knee jerk, decreased position sense in the toes bilaterally, and a left greater than right paraplegic gait. However he is definitely stronger than weh he came in and his gait is also better. 4. The patient's history and neurological examination are most compatible with a possible exacerbation of his multiple sclerosis. In addition, his hypertension is also out of control. 5. He has been treated for his MS exacerbation with Solu-medrol 1 G daily for 3 days. Recommendations 1. Continue blood pressure control. 2. The patient was encouraged to see his usual neurologist, Dr. Rico Carcamo, to start him on a disease-modifying agent. 3. Can be discharged from a neurologic point of view. Marilou Castle M.D., M.S.P.H. MARILOU CASTLE Aug 24, 2017 19:48
[2017-08-24 20:00] VITALS: BP 168/116
[2017-08-24] MEDS: Zolpidem 5mg tab ORAL PRN (20:25)
[2017-08-25] VITALS: BP 166/108
[2017-08-25] MEDS: D5 1/2NS 1,000 ML IV SCH (00:43)
[2017-08-25] MEDS: LORazepam 1mg tab ORAL PRN (03:28)
[2017-08-25 04:00] VITALS: BP 126/95
[2017-08-25 08:00] VITALS: BP 168/112
--- NOTE | 2017-08-25 08:32 | General Progress Note ---
Assessment/Plan Assessment/Plan (1) Multiple Sclerosis (2) Neuropathic pain (3) Cervical DDD (4) Cervical spondylosis (5) Lumbar DDD (6) Lumbar spondylosis (7) Narcotic Dependency (8) Opioid induced constipation Patient will be continued on the Dilaudid and Percocet. Pt was d/w Dr. Scott and he concurred. Subjective Date patient seen: Aug 25, 2017 Time patient seen: 07:40 - am Allergies: Coded Allergies: KETOROLAC (Verified Allergy, Severe, Anaphylaxis, 06/19/15) Subjective Constitutional: Reports: weakness, Denies: chills, diaphoresis, fever, malaise , no symptoms, other HEENT: Denies: blurred vision, double vision, ear discharge, ear pain, eye pain , mouth pain, mouth swelling, no symptoms, nose congestion, nose pain, other, tearing, throat pain, throat swelling Cardiovascular: Denies: edema, irregular heart rate, lightheadedness, no symptoms, other, palpitations, syncope Respiratory: Denies: SOB at rest, SOB with excertion, cough, no symptoms, orthopnea, other, shortness of breath, sputum, stridor, wheezing Gastrointestinal/Abdominal: Denies: abdomen distended, abdominal pain, black stools, blood in stool, constipated, diarrhea, difficulty swallowing, nausea, no symptoms, other, poor appetite, poor fluid intake, rectal bleeding, tarry stools, vomiting Genitourinary: Denies: burning, discharge, flank pain, frequency, hematuria, incontinence, no symptoms, other, pain, urgency Neurologic/Psychiatric: Reports: weakness, Denies: anxiety, depressed, emotional problems, headache, no symptoms, numbness, other, paresthesia, pre- existing deficit, seizure, tingling, tremors Endocrine: Denies: excessive sweating, flushing, increased hunger, increased thirst, increased urine, intolerance to cold, intolerance to heat, no symptoms, other, unexplained weight gain, unexplained weight loss Hematologic/Lymphatic: Denies: anemia, easy bleeding, easy bruising, no symptoms, other Subjective Patient sitting up in chair. He explains that the pain is unchanged and has continued to use the Dilaudid and Percocet. Being transferred to [facility] for acute rehab. Objective Last 24 Hour Vital Signs Date Time Temp Pulse Resp B/P (MAP) Pulse Ox O2 Delivery O2 Flow Rate FiO2 4/23/18 05:31 97.5 08/25/17 04:00 97.5 71 18 126/95 100 Room Air 97.5 08/25/17 00:44 176/108 08/25/17 00:00 97.7 64 19 166/108 96 Room Air 97.7 08/25/17 00:00 93 08/24/17 20:25 79 176/108 08/24/17 20:00 70 08/24/17 20:00 97.7 78 20 168/116 96 Room Air 97.7 08/24/17 17:01 97.2 08/24/17 17:00 176/108 08/24/17 17:00 176/108 08/24/17 16:47 97.2 79 20 176/108 95 Room Air 97.2 08/24/17 16:00 74 08/24/17 12:31 97.7 08/24/17 12:00 74 08/24/17 12:00 97.7 77 18 148/87 95 Room Air 97.7 08/24/17 08:45 76 159/103 08/24/17 08:44 159/103 08/24/17 08:42 76 159/103 08/24/17 08:42 159/103 Intake and Output 08/24/17 08/25/17 19:00 07:00 Intake Total 720 ml 320 ml Output Total 1000 ml Balance -280 ml 320 ml Intake Oral 720 ml 320 ml Output Urine Total 1000 ml # Voids 1 3 Height (Feet): 6 Height (Inches): 0.00 Weight (Pounds): 225 Objective General Appearance: no apparent distress, alert EENT: PERRL/EOMI, normal ENT inspection Neck: non-tender, normal alignment Cardiovascular: normal peripheral pulses, normal rate, regular rhythm Respiratory/Chest: lungs clear, normal breath sounds Abdomen: non tender, soft Extremities: non-tender Edema: no edema noted Arm (L), no edema noted Arm (R), no edema noted Leg (L), no edema noted Leg (R), no edema noted Pedal (L), no edema noted Pedal (R), no edema noted Generalized Neurologic: alert, oriented x 3 Skin: warm/dry MAYCOL WILEY Aug 25, 2017 08:32
[2017-08-25 09:07] LABS: BASOPHILS % (AUTO) 0.6 % (0.0-2.0); HEMATOCRIT 40.3 % (42.0-52.0); HEMOGLOBIN 14.2 G/DL (14.2-18.0); LYMPHOCYTES % (AUTO) 17.5 % (20.0-45.0); MEAN CORPUSCULAR VOLUME 91 FL (80-99); MONOCYTES % (AUTO) 8.9 % (1.0-10.0); NEUTROPHILS % (AUTO) 72.9 % (45.0-75.0); PLATELET COUNT 198 K/UL (150-450); RED BLOOD COUNT 4.42 M/UL (4.70-6.10); RED CELL DISTRIBUTION WIDTH 13.5 % (11.6-14.8); WHITE BLOOD COUNT 12.5 K/UL (4.8-10.8)
[2017-08-25 09:46] LABS: ANION GAP 6 mmol/L (5-15); BLOOD UREA NITROGEN 29 mg/dL (7-18); CALCIUM 9.2 MG/DL (8.5-10.1); CARBON DIOXIDE 33 MMOL/L (21-32); CHLORIDE 98 MMOL/L (98-107); CREATININE 1.4 MG/DL (0.55-1.30); POTASSIUM 3.2 MMOL/L (3.5-5.1); SODIUM 137 MMOL/L (136-145)
[2017-08-25] MEDS: Aspirin EC 81mg tab ORAL SCH (09:59)
[2017-08-25] MEDS: cloNIDine 0.2mg Tab ORAL SCH (09:59)
[2017-08-25] MEDS: HydrALAZINE 50mg tab ORAL SCH (09:59)
[2017-08-25] MEDS: Methocarbamol 750mg tab ORAL SCH ×2 (10:00→13:47)
[2017-08-25] MEDS: Relistor 12mg/0.6ml Vial SUBQ SCH (10:01)
[2017-08-25 12:00] VITALS: BP 154/100
--- NOTE | 2017-08-25 12:44 | General Progress Note ---
Assessment/Plan Problem List: (1) Neck sprain ICD Codes: S13.9XXA - Neck sprain SNOMED: 379052948 (2) Hypertension ICD Codes: I10 - Essential (primary) hypertension SNOMED: 51094312 (3) Multiple sclerosis (4) Low back pain ICD Codes: M54.5 - Low back pain SNOMED: 582357227 Status: unchanged Assessment/Plan ot pt diet bp pain control cbc bmp am transfer to [facility] Subjective Constitutional: Reports: weakness Allergies: Coded Allergies: KETOROLAC (Verified Allergy, Severe, Anaphylaxis, 06/19/15) All Systems: reviewed and negative except above Subjective o2nc c/o gen body pain Objective Last 24 Hour Vital Signs Date Time Temp Pulse Resp B/P (MAP) Pulse Ox O2 Delivery O2 Flow Rate FiO2 08/25/17 10:01 97.5 08/25/17 10:01 73 160/96 08/25/17 09:59 160/96 08/25/17 09:59 73 160/96 08/25/17 09:59 160/96 08/25/17 05:31 97.5 08/25/17 04:00 97.5 71 18 126/95 100 Room Air 97.5 08/25/17 00:44 176/108 08/25/17 00:00 97.7 64 19 166/108 96 Room Air 97.7 08/25/17 00:00 93 08/24/17 20:25 79 176/108 08/24/17 20:00 70 08/24/17 20:00 97.7 78 20 168/116 96 Room Air 97.7 08/24/17 17:01 97.2 08/24/17 17:00 176/108 08/24/17 17:00 176/108 08/24/17 16:47 97.2 79 20 176/108 95 Room Air 97.2 08/24/17 16:00 74 Intake and Output 08/24/17 08/25/17 19:00 07:00 Intake Total 720 ml 320 ml Output Total 1000 ml Balance -280 ml 320 ml Intake Oral 720 ml 320 ml Output Urine Total 1000 ml # Voids 1 3 Laboratory Tests 08/25/17 08:15: White Blood Count 12.5H, Red Blood Count 4.42L, Hemoglobin 14.2, Hematocrit 40.3L, Mean Corpuscular Volume 91, Mean Corpuscular Hemoglobin 32.1H, Mean Corpuscular Hemoglobin Concent 35.2, Red Cell Distribution Width 13.5, Platelet Count 198, Mean Platelet Volume 7.0, Neutrophils (%) (Auto) 72.9, Lymphocytes (% ) (Auto) 17.5L, Monocytes (%) (Auto) 8.9, Eosinophils (%) (Auto) 0.0, Basophils (%) (Auto) 0.6, Sodium Level 137, Potassium Level 3.2L, Chloride Level 98, Carbon Dioxide Level 33H, Anion Gap 6, Blood Urea Nitrogen 29H, Creatinine 1.4H , Estimat Glomerular Filtration Rate > 60, Glucose Level 157#H, Calcium Level 9.2 Height (Feet): 6 Height (Inches): 0.00 Weight (Pounds): 225 General Appearance: alert EENT: normal ENT inspection Neck: normal alignment Cardiovascular: normal peripheral pulses, normal rate, regular rhythm Respiratory/Chest: chest wall non-tender, lungs clear, normal breath sounds Abdomen: normal bowel sounds, non tender, soft Extremities: normal inspection Edema: no edema noted Arm (L), no edema noted Arm (R), no edema noted Leg (L), no edema noted Leg (R), no edema noted Pedal (L), no edema noted Pedal (R), no edema noted Generalized Neurologic: responsive, motor weakness Skin: normal pigmentation, warm/dry BARBARA RAGLAND Aug 25, 2017 12:44
--- NOTE | 2017-08-25 14:32 | Cardiac Electrophysiology PN ---
Assessment/Plan Assessment/Plan 1. Chest pain. Ruled out for myocardial infarction. His stress test in the past has been negative. 2. Accelerated hypertension. Continue Metoprolol 100 bid, Norvasc 10 mg daily, clonidine 0.2 mg b.i.d. and hydralazine 100 mg b.i.d., hydrochlorothiazide 50 mg daily, and metoprolol 100 mg b.i.d. 3. Multiple sclerosis. Further evaluation by Dr. Franco. Transfer to [facility] RN Subjective Subjective Comfortable in NAD. BP better. Is getting transferred to [facility] Objective Last 24 Hour Vital Signs Date Time Temp Pulse Resp B/P (MAP) Pulse Ox O2 Delivery O2 Flow Rate FiO2 08/25/17 12:00 97.5 71 18 154/100 100 Room Air 97.5 08/25/17 10:31 97.5 08/25/17 10:01 97.5 08/25/17 10:01 73 160/96 08/25/17 09:59 160/96 08/25/17 09:59 73 160/96 08/25/17 09:59 160/96 08/25/17 08:00 97.5 71 18 168/112 100 Room Air 97.5 08/25/17 04:00 97.5 71 18 126/95 100 Room Air 97.5 08/25/17 00:44 176/108 08/25/17 00:00 97.7 64 19 166/108 96 Room Air 97.7 08/25/17 00:00 93 08/24/17 20:25 79 176/108 08/24/17 20:00 70 08/24/17 20:00 97.7 78 20 168/116 96 Room Air 97.7 08/24/17 17:01 97.2 08/24/17 17:00 176/108 08/24/17 17:00 176/108 08/24/17 16:47 97.2 79 20 176/108 95 Room Air 97.2 08/24/17 16:00 74 Intake and Output 08/24/17 08/25/17 19:00 07:00 Intake Total 720 ml 320 ml Output Total 1000 ml Balance -280 ml 320 ml Intake Oral 720 ml 320 ml Output Urine Total 1000 ml # Voids 1 3 Laboratory Tests Test 08/25/17 08:15 White Blood Count 12.5 K/UL (4.8-10.8) H Red Blood Count 4.42 M/UL (4.70-6.10) L Hemoglobin 14.2 G/DL (14.2-18.0) Hematocrit 40.3 % (42.0-52.0) L Mean Corpuscular Volume 91 FL (80-99) Mean Corpuscular Hemoglobin 32.1 PG (27.0-31.0) H Mean Corpuscular Hemoglobin Concent 35.2 G/DL (32.0-36.0) Red Cell Distribution Width 13.5 % (11.6-14.8) Platelet Count 198 K/UL (150-450) Mean Platelet Volume 7.0 FL (6.5-10.1) Neutrophils (%) (Auto) 72.9 % (45.0-75.0) Lymphocytes (%) (Auto) 17.5 % (20.0-45.0) L Monocytes (%) (Auto) 8.9 % (1.0-10.0) Eosinophils (%) (Auto) 0.0 % (0.0-3.0) Basophils (%) (Auto) 0.6 % (0.0-2.0) Sodium Level 137 MMOL/L (136-145) Potassium Level 3.2 MMOL/L (3.5-5.1) L Chloride Level 98 MMOL/L (98-107) Carbon Dioxide Level 33 MMOL/L (21-32) H Anion Gap 6 mmol/L (5-15) Blood Urea Nitrogen 29 mg/dL (7-18) H Creatinine 1.4 MG/DL (0.55-1.30) H Estimat Glomerular Filtration Rate > 60 mL/min (>60) Glucose Level 157 MG/DL (74-106) #H Calcium Level 9.2 MG/DL (8.5-10.1) Objective HEAD AND NECK: No JVD or carotid bruits. LUNGS: Clear. CARDIOVASCULAR: Regular S1 and S2 with no gallop or murmur. ABDOMEN: Soft. EXTREMITIES: No pitting edema. Joni Ferguson MD Aug 25, 2017 14:32
[2017-08-25 16:00] VITALS: BP 154/100
[2017-08-25] MEDS ORDERED: D5 1/2NS 1000ml IV ONE (16:09)
--- NOTE | 2017-08-25 22:00 | Consultation ---
DATE OF CONSULTATION: 08/25/2017 PSYCHOTHERAPY CONSULTATION PROGRESS NOTE CONSULTING PHYSICIAN: Leanne Galarza PsyD. TREATING ATTENDING PHYSICIAN: Dennis Hoffman D.O. HISTORY OF PRESENT ILLNESS: The patient is a 52-year-old male patient who comes into the hospital for hypertension and back pain. He has multiple sclerosis as well. Due to his medical symptoms, the patient states that he has been feeling anxious, agitated, and has had difficulty sleeping. For these reasons, he was referred for psychotherapeutic services. This clinician assessed this patient. The patient stated that his physical symptoms exacerbates with feeling of anxiety and helplessness, and he is unable to sleep at night thinking about his symptoms. He denies suicidal or homicidal thoughts of ideation. Denies any auditory or visual hallucinations. He states that his mood has fluctuated depression and generalized anxiety. PAST MEDICAL HISTORY: History of multiple sclerosis and hypertension. ALLERGIES: The patient is allergic to ketorolac. SUBSTANCE ABUSE HISTORY: The patient denies history of alcohol use, illicit substance use, or smoking cigarettes. PSYCHIATRIC HISTORY: The patient has a history of depression and anxiety and has been treated with medications in the past. SOCIAL HISTORY: The patient is a 52-year-old male patient. He lives in [place]. The patient is financially sustained through [employer]. MENTAL STATUS EXAMINATION: The patient is alert and oriented to person, place, and time. Mood is dysphoric. Affect is blunted. Thought process is spontaneous. Poor attention and concentration. Poor insight, judgment, and impulse control. DIAGNOSIS: Major depressive disorder, recurrent, moderate without psychotic features and generalized anxiety disorder. PLAN: This clinician assessed the patient and assessed the patient's mental status. Provided the patient reality orientation and supportive psychotherapy. Encouraging the patient to participate in treatment milieu. Providing the patient with coping skills and compliance with treatment. Continue with behavioral management. Continue to address the patient's depression and helplessness. This clinician has reviewed the patient's chart and discussed the treatment with treatment team. Leanne Galarza PsyD. DR: Opal JOB#: [id number] CC:
--- NOTE | 2017-08-26 18:38 | Discharge Summary ---
Discharge Summary Hospital Course Date of Admission Aug 20, 2017 at 14:20 Date of Discharge Aug 25, 2017 at 16:10 Admitting Diagnosis hypertension, MS flare up HPI Teto Granda is a 52 year old male who was admitted on Aug 20, 2017 at 14:20 for Hypertension,Ms Flare Up Hospital Course [id number] Discharge Discharge Disposition Patient was discharged to Acute Rehab Hosp/Unit(62) Alicia Castrejon NP Aug 26, 2017 18:38
--- NOTE | 2017-08-26 20:00 | Discharge Summary 2 SIG ---
DATE OF ADMISSION: 08/20/2017 DATE OF DISCHARGE: 08/25/2017 CONSULTANTS: 1. Joni Ferguson M.D. 2. Jassi Scott M.D. 3. Tonny Franco M.D. 4. Gricelda Granda M.D. 5. Leanne Galarza PSYD. BRIEF HOSPITAL COURSE: The patient is a 52-year-old female with history of MS ran out of medications and started to have pain all over worse in the back and neck. She has history of multiple sclerosis, hypertension, chronic pain, and anxiety. On evaluation at ED, blood pressure was elevated to 205/126. She continued to have pain. Laboratory workup was negative. She was then admitted for multiple sclerosis and exacerbation of pain. EKG was in normal sinus rhythm. Chest x-ray showed no consolidation. She underwent neurologic evaluation due to acute exacerbation of multiple sclerosis. She was started on Solu-Medrol 1 g daily. She was also seen by pain specialist and was given Dilaudid and [place]. Blood pressure was managed with Norvasc 10 mg, clonidine 0.2 mg b.i.d., hydralazine 50 mg b.i.d., hydrochlorothiazide 50 mg daily, and Metoprolol was continued. She was given physical therapy and occupational therapy. She had paraplegic gait. She also had major depressive disorder and was given Cymbalta and Neurontin. She was eventually transferred to [facility]. FINAL DIAGNOSES: 1. Multiple sclerosis with exacerbation. 2. Accelerated hypertension. 3. Chest pain, ruled out for myocardial infarction with negative stress test in the past. 4. Major depressive disorder. 5. Cervical disk disease. 6. Lumbar degenerative disk disease. 7. Opioid-induced constipation. 8. Narcotic dependency. 9. 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 DISPOSITION: The patient was discharged to acute rehabilitation. Dennis Hoffman D.O. I have been assigned to dictate discharge summary on this account and I was not involved in the patient's management. Alicia Castrejon N.P. DR: Olinda JOB#: [id number] CC: PIERCE
== END 2017-08-25 16:10 | disposition short-term general hospital (02) | DRG 59 ==
LOC: EMR 11:53 → EDBEDREQSVC 13:53 → 2E 14:20 → EDBEDREQ 14:37 → 2E 15:37
DX: G35 Multiple sclerosis (principal); F11.20 Opioid dependence, uncomplicated; I10 Essential (primary) hypertension; F32.9 Major depressive disorder, single episode, unspecified; F41.9 Anxiety disorder, unspecified; R07.9 Chest pain, unspecified; M50.30 Other cervical disc degeneration, unspecified cervical region; M51.36 Other intervertebral disc degeneration, lumbar region; K59.03 Drug induced constipation; T40.2X5A Adverse effect of other opioids, initial encounter; Z88.8 Allergy status to other drugs, medicaments and biological substances; G62.9 Polyneuropathy, unspecified; M47.892 Other spondylosis, cervical region; M47.896 Other spondylosis, lumbar region
CPT/HCPCS: 36415; 80048; 80053; 82550; 82553; 84484; 85007; 85025; 93005; 99285

== ENCOUNTER 2020-01-08 10:17 | Inpatient (IN) | payer MEDICARE, OTHER ==
[~2020-01-08] VITALS: Ht 182.9 cm; Wt 111.0 kg
--- NOTE | 2020-01-08 10:37 | NUR ---
ED Nurse Note: Pt was wheeled to ER c/o "MS exacerbation pain" x 1 day. pt report a burning like pain starting from right buttocks radiating down to bottom of right foot. 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 Pt reports normally walking with walker/can and use of wheelchair. Skin intact, no visible deformities, no trauma/no injury to site.
[2020-01-08 10:40] VITALS: BP 129/71
[2020-01-08] MEDS ORDERED: HYDROmorphone 1mg/ml Carpuject IVP ONE ×3 (10:45→16:00)
--- NOTE | 2020-01-08 10:45 | Emergency Room Report ---
History of Present Illness General Chief Complaint: Pain Source: Patient Present Illness HPI 54-year-old male with history of multiple sclerosis, chronic lower extrem weakness and lower extremity pain here with acute left lower extremity weakness. Patient says this feels like his usual multiple sclerosis flares. He has had these many times in the past. Patient used to take daily prednisone but has stopped. Has not taken it in many months. He has not followed up with his physicians in over a year. Says that over the past 3 days he has been having left lower extremity weakness. Says that this is consistent with his usual multiple sclerosis flares. Denies any fevers, chills, chest pain, palpitation, shortness of breath, back pain, abdominal pain, nausea, vomiting, diarrhea, dysuria. Allergies: Coded Allergies: KETOROLAC (Verified Allergy, Severe, Anaphylaxis, 06/19/15) COVID-19 Screening Contact w/high risk pt: No Experienced COVID-19 symptoms?: No COVID-19 Testing performed [employer]ESS[employer]ER: Yes - 1 week ago COVID-19 Screening: Negative COVID-19 COVID-19 Testing Source: nasal Nursing Documentation-PM Past Medical History: No History, Except For Hx Cardiac Problems: Yes - Coronary artery disease Hx Hypertension: Yes Hx Pacemaker: No Hx Asthma: No Hx COPD: No Hx Diabetes: No Hx Cancer: No Hx Gastrointestinal Problems: No Hx Dialysis: No Hx Neurological Problems: Yes - Multiple sclerosis Hx Cerebrovascular Accident: Yes - 2014 Hx Transient Ischemic Attacks: No Hx Dementia: No Hx Alzheimer's Disease: No Hx Parkinson's Disease: No Hx Meningitis: No Hx Encephalitis: No Hx Seizures: No Hx Epilepsy: No Hx Multiple Sclerosis: Yes Hx Cerebral Palsy: No Hx Amyotrophic Lat Sclerosis: No Hx Guillian-Pearl Syndrome: No Hx Paralysis: No Hx Peripheral Neuropathy: No Hx Spinal Cord Injury: No Hx Head Trauma: No Hx Traumatic Brain Injury: No Hx Memory Loss: No Hx Concentration Difficulty: No Hx Speech Problem: No Hx Tremors: No Hx Vertigo: No Hx Dizziness: No Hx Syncope: Yes Hx Headaches: Yes - SOMETIMES Hx Aphasia: No Hx Dysphasia: No Hx Numbness: Yes - RIGHT HAND Hx Weakness: Yes - ALL OF THE BODY Hx Fatigue: Yes - SLIGHT Hx Neurologic Surgery: No Hx Brain Shunt: No Review of Systems All Other Systems: negative except mentioned in HPI Physical Exam Vital Signs Date Time Temp Pulse Resp B/P (MAP) Pulse Ox O2 Delivery O2 Flow Rate FiO2 01/08/20 10:30 97.5 85 18 129/71 (90) 96 Room Air Sp02 EP Interpretation: reviewed, normal General Appearance: no apparent distress, alert, GCS 15, non-toxic Head: normocephalic, atraumatic Eyes: bilateral eye normal inspection, bilateral eye PERRL ENT: hearing grossly normal, normal pharynx, no angioedema, normal voice Neck: full range of motion, supple/symm/no masses Respiratory: chest non-tender, lungs clear, normal breath sounds, speaking full sentences Cardiovascular #1: regular rate, rhythm, no edema Cardiovascular #2: 2+ carotid (R), 2+ carotid (L), 2+ radial (R), 2+ radial (L) , 2+ dorsalis pedis (R), 2+ dorsalis pedis (L) Gastrointestinal: normal bowel sounds, non tender, soft, non-distended, no guarding, no rebound Rectal: deferred Genitourinary: normal inspection, no CVA tenderness Musculoskeletal: back normal, normal range of motion, calf tenderness, gait/ station normal, non-tender Neurologic: alert, sensory intact, responsive, speech normal, other - Able to lift right lower extremity off the bed without any difficulty. 4-5 strength right lower extremity. 2 out of 5 strength left lower extremity, Unable to lift off the bed Psychiatric: judgement/insight normal, memory normal, mood/affect normal, no suicidal/homicidal ideation Reflexes: 3+ bicep (R), 3+ bicep (L), 3+ tricep (R), 3+ tricep (L), 3+ knee (R) , 3+ knee (L) Lymphatic: no adenopathy Medical Decision Making Diagnostic Impression: Primary Impression: Multiple sclerosis Additional Impression: Multiple sclerosis, relapsing-remitting ER Course Total critical care time: Approximately 30 minutes Due to a high probability of clinically significant, life threatening deterioration, the patient required the highest level of preparedness to intervene emergently and I personally spent this critical care time directly and personally managing the patient. This critical care time included obtaining a history, examining the patient, pulse oximetry, ordering and reviewing studies , ordering treatments, evaluating response to treatment and updating management plan as needed, frequent reassessment and discussion with other providers as well as arranging for ultimate disposition. This critical to care time was performed to assess and manage the high probability of life-threatening deterioration that could result in multiorgan failure. This critical care time is separate from the separately billable procedures and treating other patients. Ultrasound IV was put in the right upper extremity by myself. 18-gauge IV placed with good flush and draw back with no complications EKG: EKG: NSR, no ischemia, intervals WNL. No ectopy. 81 bpm Rhythm strip: patient monitored for arrhythmias - no malignant dysrhythmias, runs of PVCs, nor pauses noted 54-year-old male here with acute left lower extremity weakness. This consistent with a usual multiple sclerosis flare the patient has suffered many times in the past. He denied any other new focal numbness or weakness. Patient was otherwise hemodynamically stable and had a physical examination was consistent with his normal physical examinations. He required multiple dose of IV pain medication in the emergency department for his chronic back pain. There is no new back pain or new neurologic findings otherwise. Did not have any fevers or urinary or fecal retention or incontinence. No other red flag warning signs for back pain. The patient usually follows up with a neurologist Dr. Carcamo at an outside hospital. However he has seen Dr. Franco here in the past. I spoke with Dr. Estevez who agreed to give the patient 1 g of Solu-Medrol in the emergency department. This was given IV. Patient was admitted to [facility] for multiple sclerosis flare. Last Vital Signs Date Time Temp Pulse Resp B/P (MAP) Pulse Ox O2 Delivery O2 Flow Rate FiO2 01/08/20 10:40 97.5 79 18 129/71 96 Room Air Lino Lainez M.D. Jan 08, 2020 10:45
--- NOTE | 2020-01-08 12:04 | Diagnostic Imaging Report ---
EXAM: XR Chest, 1 View CLINICAL HISTORY: CP TECHNIQUE: Frontal view of the chest. COMPARISON: Chest x-ray report from 08/19/17, images not available. FINDINGS: Lungs: Hypoventilatory lungs. Bibasilar atelectasis. Lungs otherwise clear. Pleural space: Unremarkable. No pneumothorax. Heart: Unremarkable. No cardiomegaly. Mediastinum: Unremarkable. Bones/joints: Marie rods of the lumbar spine. IMPRESSION: Hypoventilatory lungs. Bibasilar atelectasis. Lungs otherwise clear.
[2020-01-08 12:40] VITALS: BP 135/76
[2020-01-08] MEDS ORDERED: DiphenhydrAMINE 50mg/ml Inj IVP ONE (12:45)
[2020-01-08 12:46] LABS: BASOPHILS % (AUTO) 2.3 % (0.0-2.0); EOSINOPHILS % (AUTO) 0.6 % (0.0-3.0); HEMATOCRIT 39.9 % (42.0-52.0); HEMOGLOBIN 13.2 G/DL (14.2-18.0); LYMPHOCYTES % (AUTO) 25.3 % (20.0-45.0); MEAN CORPUSCULAR VOLUME 91 FL (80-99); MONOCYTES % (AUTO) 9.2 % (1.0-10.0); NEUTROPHILS % (AUTO) 62.7 % (45.0-75.0); PLATELET COUNT 265 K/UL (150-450); RED BLOOD COUNT 4.37 M/UL (4.70-6.10); RED CELL DISTRIBUTION WIDTH 12.9 % (11.6-14.8)
[2020-01-08 12:55] LABS: ANION GAP 8 mmol/L (5-15); BLOOD UREA NITROGEN 17 mg/dL (7-18); CALCIUM 9.2 MG/DL (8.5-10.1); CARBON DIOXIDE 27 MMOL/L (21-32); CHLORIDE 105 MMOL/L (98-107); CREATININE 1.3 MG/DL (0.55-1.30); POTASSIUM 4.4 MMOL/L (3.5-5.1); SODIUM 140 MMOL/L (136-145)
[2020-01-08 13:01] LABS: ALANINE AMINOTRANSFERASE 66 U/L (12-78); ALBUMIN 3.5 G/DL (3.4-5.0); ALKALINE PHOSPHATASE 115 U/L (46-116); ASPARTATE AMINO TRANSFERASE 36 U/L (15-37); BILIRUBIN,TOTAL 0.2 MG/DL (0.2-1.0)
--- NOTE | 2020-01-08 13:11 | NUR ---
ED Nurse Note: solumedrol 1000mg not in [facility] called pharmacy. Per pharmacy they will bring it over.
[2020-01-08] MEDS ORDERED: methylPREDNISolone Sod Succ 1,000 MG in NS 275 ML IVPB ONE (13:15)
--- NOTE | 2020-01-08 13:33 | NUR ---
ED Nurse Note: telephone report given to bruno casey for continuity of care
--- NOTE | 2020-01-08 13:38 | NUR ---
NURSE NOTES: Received report from ER nurse, Amirah will wait for patient to come to the floor
--- NOTE | 2020-01-08 13:53 | NUR ---
TRANSFER TO FLOOR: Patient transferred to ms as ordered, per ermd. Report given to bruno arechiga. Belongings given to pt. Family informed of transfer.
--- NOTE | 2020-01-08 13:55 | NUR ---
NURSE NOTES: pt arrived to the floor, via gurney, pt help self transfer to hospital bed by sliding himself on to the bed , pt a/ox4, breaths regular unlabored on RA, no s/s of distress, pt c/o of bilateral Lower leg pain, will notify md for orders . Belongings verified and signed for by pt , performed skin assessment and its intact, pt has a surgical scar mid lower back, pt has bilateral lower extremity weakness due to his Diagnosis , pt is able to turn from side to side , pt oriented to the room, bed in low locked position, side rails upX2,call light with in reach, will call for admission orders
--- NOTE | 2020-01-08 14:50 | NUR ---
NURSE NOTES: Called and left Msg for DR Hoffman for admission orders , will wait or call back
[2020-01-08] MEDS ORDERED: ROBAXIN-500MG ORAL (14:56)
--- NOTE | 2020-01-08 15:48 | General Progress Note ---
Assessment/Plan Problem List: (1) Abscess ICD Codes: L02.91 - Cutaneous abscess, unspecified SNOMED: 216465615 (2) Diabetes ICD Codes: E11.9 - Diabetes SNOMED: 52187918 (3) Hypertension ICD Codes: I10 - Essential (primary) hypertension SNOMED: 26364959 (4) Neck pain ICD Codes: M54.2 - Cervicalgia SNOMED: 52746539 (5) Relapsing progressive multiple sclerosis ICD Codes: G35 - Multiple sclerosis SNOMED: 193536498 (6) Multiple sclerosis (7) Chronic pain ICD Codes: G89.29 - Other chronic pain SNOMED: 70121611 Status: progressing Assessment/Plan: afebrile nac chronic pain htn resp insuff multiple sclerosis Subjective ROS Limited/Unobtainable: Yes Allergies: Coded Allergies: KETOROLAC (Verified Allergy, Severe, Anaphylaxis, 06/19/15) Objective Last 24 Hour Vital Signs Date Time Temp Pulse Resp B/P (MAP) Pulse Ox O2 Delivery O2 Flow Rate FiO2 01/08/20 14:12 Room Air 01/08/20 13:33 97.7 82 17 122/71 97 Room Air 01/08/20 12:57 97.7 01/08/20 12:40 97.5 82 19 135/76 97 Room Air 01/08/20 10:40 97.5 79 18 129/71 96 Room Air 01/08/20 10:30 97.5 85 18 129/71 (90) 96 Room Air Laboratory Tests 01/08/20 12:30: White Blood Count 11.0H, Red Blood Count 4.37L, Hemoglobin 13.2L, Hematocrit 39.9L, Mean Corpuscular Volume 91, Mean Corpuscular Hemoglobin 30.2, Mean Corpuscular Hemoglobin Concent 33.1, Red Cell Distribution Width 12.9, Platelet Count 265, Mean Platelet Volume 7.1, Neutrophils (%) (Auto) 62.7, Lymphocytes (% ) (Auto) 25.3, Monocytes (%) (Auto) 9.2, Eosinophils (%) (Auto) 0.6, Basophils ( %) (Auto) 2.3H, Sodium Level 140, Potassium Level 4.4, Chloride Level 105, Carbon Dioxide Level 27, Anion Gap 8, Blood Urea Nitrogen 17, Creatinine 1.3, Estimat Glomerular Filtration Rate > 60, Glucose Level 92, Calcium Level 9.2, Total Bilirubin 0.2, Aspartate Amino Transf (AST/SGOT) 36, Alanine Aminotransferase (ALT/SGPT) 66, Alkaline Phosphatase 115, Troponin I 0.000, Total Protein 7.0, Albumin 3.5, Globulin 3.5, Albumin/Globulin Ratio 1.0 Height (Feet): 6 Height (Inches): 0.00 Weight (Pounds): 245 Stone Smart MD Jan 08, 2020 15:48
[2020-01-08 16:00] VITALS: BP 136/95
[2020-01-08] MEDS ORDERED: Methocarbamol 750mg tab ORAL PRN (16:00)
--- NOTE | 2020-01-08 16:11 | NUR ---
NURSE NOTES: RECEIVED CALL FROM DR. KIM (COVERING FOR DR. RAGLAND) WITH ADMISSION ORDERS. ALL ORDERS READ BACK AND ENTERED. PER MD, CALL DR. MCGRATH OR DR. MEADE FOR ORDERS FOR PATIENT'S HOME BLOOD PRESSURE MEDICATIONS. RELAYED TO PRIMARY NURSE SURAJ.
--- NOTE | 2020-01-08 18:32 | Cardiology Progress Note ---
Assessment/Plan Assessment/Plan The patient is seen and examined, full consult note is dictated. Objective Last 24 Hour Vital Signs Date Time Temp Pulse Resp B/P (MAP) Pulse Ox O2 Delivery O2 Flow Rate FiO2 01/08/20 16:00 98.2 69 18 136/95 (109) 95 01/08/20 14:12 Room Air 01/08/20 13:33 97.7 82 17 122/71 97 Room Air 01/08/20 12:57 97.7 01/08/20 12:40 97.5 82 19 135/76 97 Room Air 01/08/20 10:40 97.5 79 18 129/71 96 Room Air 01/08/20 10:30 97.5 85 18 129/71 (90) 96 Room Air Laboratory Tests Test 01/08/20 12:30 White Blood Count 11.0 K/UL (4.8-10.8) H Red Blood Count 4.37 M/UL (4.70-6.10) L Hemoglobin 13.2 G/DL (14.2-18.0) L Hematocrit 39.9 % (42.0-52.0) L Mean Corpuscular Volume 91 FL (80-99) Mean Corpuscular Hemoglobin 30.2 PG (27.0-31.0) Mean Corpuscular Hemoglobin Concent 33.1 G/DL (32.0-36.0) Red Cell Distribution Width 12.9 % (11.6-14.8) Platelet Count 265 K/UL (150-450) Mean Platelet Volume 7.1 FL (6.5-10.1) Neutrophils (%) (Auto) 62.7 % (45.0-75.0) Lymphocytes (%) (Auto) 25.3 % (20.0-45.0) Monocytes (%) (Auto) 9.2 % (1.0-10.0) Eosinophils (%) (Auto) 0.6 % (0.0-3.0) Basophils (%) (Auto) 2.3 % (0.0-2.0) H Sodium Level 140 MMOL/L (136-145) Potassium Level 4.4 MMOL/L (3.5-5.1) Chloride Level 105 MMOL/L (98-107) Carbon Dioxide Level 27 MMOL/L (21-32) Anion Gap 8 mmol/L (5-15) Blood Urea Nitrogen 17 mg/dL (7-18) Creatinine 1.3 MG/DL (0.55-1.30) Estimat Glomerular Filtration Rate > 60 mL/min (>60) Glucose Level 92 MG/DL (74-106) Calcium Level 9.2 MG/DL (8.5-10.1) Total Bilirubin 0.2 MG/DL (0.2-1.0) Aspartate Amino Transf (AST/SGOT) 36 U/L (15-37) Alanine Aminotransferase (ALT/SGPT) 66 U/L (12-78) Alkaline Phosphatase 115 U/L (46-116) Troponin I 0.000 ng/mL (0.000-0.056) Total Protein 7.0 G/DL (6.4-8.2) Albumin 3.5 G/DL (3.4-5.0) Globulin 3.5 g/dL Albumin/Globulin Ratio 1.0 (1.0-2.7) Joni Mena MD Jan 08, 2020 18:32
--- NOTE | 2020-01-08 18:43 | NUR ---
NURSE NOTES: HOME BLOOD PRESSURE MEDICATIONS REVIEWED WITH DR. MCGRATH. NEW ORDERS RECEIVED, READ BACK, AND ENTERED.
--- NOTE | 2020-01-08 19:25 | NUR ---
NURSE HAND-OFF: Important Events on Shift: stable, left MSG for MD for pain medication orders Patient Status: stable Diet: Regular Pending Orders: Pending Results/Labs: Pending MD notification: Latest Vital Signs: Temperature 98.2 , Pulse 69 , B/P 136 /95 , Respiratory Rate 18 , O2 SAT 95 , Room Air, O2 Flow Rate . Vital Sign Comment: Latest Montalvo Fall Score: 70 Fall Risk: High Risk Safety Measures: Call light Within Reach, Bed Alarm Zone 2, Side Rails Side Rails x2, Bed position Low and Locked. Fall Precautions: Yellow Socks Door Sign Patient Fall Education Report given to Tatiana SERVIN.
[2020-01-08 19:56] VITALS: BP 161/106
--- NOTE | 2020-01-08 20:00 | NUR ---
nurse's notes: 3rd call (2 by RN Berna) to Dr. Scott/Dr. Valladares for the day requesting for pain medication and benadryl orders for this patient. currently patient has a 9/10 throbbing,severe pain on his BLE and lower back; VS taken, BP elevated at 161/106, afebrile. awaiting callback.
[2020-01-08] MEDS: HYDROmorphone 1mg/ml Carpuject IVP PRN (21:28)
[2020-01-08] MEDS: Zolpidem 5mg tab ORAL PRN (22:05)
[2020-01-08 23:52] VITALS: BP 168/124
[2020-01-09] VITALS (8 sets, daily range): BP systolic 152–199; BP diastolic 101–123
--- NOTE | 2020-01-09 01:00 | Consultation ---
DATE OF CONSULTATION: 01/08/2020 NOTE: INCOMPLETE DICTATION CARDIOLOGY CONSULTATION CONSULTING PHYSICIAN: Joni Mena MD. REFERRING PHYSICIAN: Stone Smart MD. ADDITIONAL REFERRING PHYSICIAN: Joni Mena M.D. DR: PHIL JOB#: [id number] CC:
--- NOTE | 2020-01-09 01:30 | Consultation ---
DATE OF CONSULTATION: 01/08/2020 CARDIOLOGY CONSULTATION CONSULTING PHYSICIAN: Joni Mena MD. REFERRING PHYSICIAN: Stone Smart MD. ADDITIONAL REFERRING PHYSICIAN: Dennis Hoffman DO. REASON FOR CONSULTATION: Management of coronary artery disease and hypertension. HISTORY OF PRESENT ILLNESS: Patient is a very unfortunate 54-year-old gentleman who presents to the hospital for complaints of left lower extremity weakness. According to the patient who has history of multiple sclerosis, prednisone has been discontinued for the past few months. He has been noncompliant with his physician office visit as well. He states that he was looking forward to seeing Dr. Carcamo, neurologist, and he was told that he would be seeing him at [facility] and currently quite concerned about the fact that Dr. Carcamo does not have any privileges at [facility], and therefore cannot see him in Neurology consultation. The patient at the time of my evaluation did not have any chest pain or shortness of breath. However, he claimed that he had history of myocardial infarction by enzymes on one of his admissions to outside hospital. He denies any prior coronary angiography or left heart catheterization. His risk factors for coronary artery disease includes hypertension for which he takes clonidine, hydralazine, and amlodipine at home. PAST MEDICAL HISTORY: 1. History of non-ST elevation myocardial infarction in the past. No coronary angiography. 2. History of hypertension. 3. Multiple sclerosis. 4. CVA in 2013. ALLERGIES: To ketorolac. PAST SURGICAL HISTORY: None. FAMILY HISTORY: No premature coronary artery disease in the first-degree relatives. HABITS: Denies any tobacco, alcohol, or illicit drug use. REVIEW OF SYSTEMS: HEENT: Denies any headache, diplopia, or blurred vision. CONSTITUTIONAL: There is no fever, chills, night sweats, or weight loss. CARDIOVASCULAR: Denies any chest pain, shortness of breath, PND, orthopnea, or leg swelling. PULMONARY: Denies any cough, hemoptysis, or wheezing. GASTROINTESTINAL: Denies any nausea, vomiting, diarrhea, constipation, abdominal pain, or GI bleed. GENITOURINARY: Denies any hematuria, dysuria, or incontinence. NEUROLOGY: Complains of left lower extremity weakness. MEDICATIONS: List of medications, acetaminophen 650 q.4h p.r.n. pain and fever, aspirin 81 mg p.o. daily, amlodipine 10 mg p.o. daily, Cymbalta 40 mg p.o. daily, hydralazine 100 mg twice a day, methocarbamol 750 mg t.i.d. for pain and muscle cramps, Ambien 5 mg at bedtime p.r.n. insomnia. PHYSICAL EXAMINATION: VITAL SIGNS: Blood pressure was 129/71 mmHg, heart rate of 85, respiration of 18, temperature 97.5 degrees Fahrenheit, O2 saturation 96% on room air. GENERAL: Patient is a very pleasant 54-year-old gentleman, in no apparent respiratory distress, alert and oriented x4. HEENT: Atraumatic, normocephalic. Anicteric. Pupils are equal, round, and reactive to light and accommodation. Extraocular muscles intact. NECK: JVP less than 5 cm. No carotid bruit. Carotid upstrokes 2+ bilaterally. CARDIOVASCULAR: Normal S1, S2. Regular rate and rhythm. No murmurs, gallops, or rubs. PMI is at the fourth intercostal space in midclavicular line. LUNGS: Clear to auscultation bilaterally. ABDOMEN: Soft, nontender, nondistended. No hepatosplenomegaly. Positive bowel sounds. EXTREMITIES: No evidence of edema, clubbing, or cyanosis. LABORATORY FINDINGS: WBC was 11.0, hemoglobin of 13.2, hematocrit of 39.9%, platelet count 265. Sodium 140, potassium was 4.4, chloride 105, bicarbonate 27, BUN of 17, creatinine 1.3, glucose 92, calcium was 9.2. Troponin I level is 0. Chest x-ray showed no acute cardiopulmonary disease. ASSESSMENT AND PLAN: Patient is a very unfortunate 54-year-old gentleman seen in Cardiology consultation. 1. Hypertension, stage 2, we will continue with amlodipine at 10 mg p.o. daily. We will add clonidine 0.1 mg t.i.d. as need for systolic blood pressure over 160. Replace hold on hydralazine at this time. 2. History of non-ST elevation myocardial infarction, possibly demand ischemia. No history of coronary angiography or left heart catheterization. Currently stable. Troponin I level is normal and the patient is chest-pain free. No further cardiac workup is necessary at this time. 3. Probably chronic kidney disease with creatinine of 1.3. Outpatient workup. We will continue the patient's hydration. 4. Multiple sclerosis with acute onset of left lower extremity weakness and Neurology consultation. I would like to thank Dr. Smart and Dr. Hoffman for involving me in the care of this most pleasant patient. Joni Mena M.D. DR: PHIL JOB#: [id number] CC:
[2020-01-09] MEDS: HYDROmorphone 1mg/ml Carpuject IVP PRN ×6 (01:35→22:26)
[2020-01-09] MEDS ORDERED: HydrALAZINE 50mg tab ORAL SCH (02:15)
[2020-01-09] MEDS ORDERED: hydroCHLOROthiazide 25mg cap ORAL SCH (02:15)
[2020-01-09] MEDS: cloNIDine 0.2mg Tab ORAL PRN ×2 (04:14→17:13)
--- NOTE | 2020-01-09 06:29 | NUR ---
NURSE HAND-OFF: Important Events on Shift: BP elevated most probably due to unrelieved pain; new orders for BP and pain received, noted and initiated. BP still elevated and pain still present but improving per patient. Patient Status: stable Diet: regular Pending Orders: none Pending Results/Labs:none Pending MD notification: none Latest Vital Signs: Temperature 97.3 , Pulse 87 , B/P 177 /122 , Respiratory Rate 17 , O2 SAT 98 , Room Air, O2 Flow Rate . Vital Sign Comment: as stated Latest Montalvo Fall Score: 70 Fall Risk: High Risk Safety Measures: Call light Within Reach, Bed Alarm Zone 2, Side Rails Side Rails x2, Bed position Low and Locked. Fall Precautions: Patient Fall Education Report will be given to Berna
--- NOTE | 2020-01-09 07:50 | NUR ---
NURSE NOTES: Received report from Tatiana RN, rounds made pt wake having breakfast , no s/s of distress on RA , pt c/o pain 11/11 of generalized will provide medication as ordered , denies any N/V, pt c/o of itching all over his body , will notify MD , pt has IV access on the RT hand 18G locked , bed in low locked position , side rails upX2, call light with ion reach , will continue to monitor
[2020-01-09] MEDS: Aspirin EC 81mg tab ORAL SCH (08:09)
[2020-01-09] MEDS: hydroCHLOROthiazide 25mg cap ORAL SCH (08:10)
--- NOTE | 2020-01-09 09:23 | NUR ---
NURSE NOTES: Spoke to Dr. Smart regarding patient and new Benadryl order received. Order read back and carried out.
--- NOTE | 2020-01-09 10:51 | Consultation ---
History of Present Illness General Date patient seen: Jan 09, 2020 Time patient seen: 10:30 - am Chief Complaint: Body pain Referring physician: Bing Reason for Consultation: Pain Management Present Illness HPI Patient is a known patient from previous hospital admissions, h/o MS and now with exacerbation. Was started on Dilaudid 1mg IV Q4H which has been increased to 2mg as per Dr. Scott. Pain has been tolerated on the medication. We were consulted so patient has adequate pain control while here in the hospital. Patient reports that he is seen by Dr. Cornell as outpt receiving Dilaudid 4mg and Oxycodone 10mg on monthly bases. Reports also needed lumbar surgery with Dr. Vaca as [facility] in the past year. Allergies: Coded Allergies: KETOROLAC (Verified Allergy, Severe, Anaphylaxis, 06/19/15) Medication History Scheduled Amlodipine Besylate* (Amlodipine Besylate*), 10 MG ORAL DAILY, (Reported) Aspirin* (Aspir 81*), 81 MG ORAL DAILY, (Reported) Clonidine Hcl* (Catapres*), 0.3 MG ORAL TID, (Reported) Duloxetine (Cymbalta), 40 MG ORAL DAILY, (Reported) Hydralazine HCl (Hydralazine HCl), 100 MG ORAL BID, (Reported) Scheduled PRN Acetaminophen* (Acetaminophen 325MG Tablet*), 650 MG ORAL Q4H PRN PRN for PAIN/ FEVER, (Reported) Methocarbamol* (Robaxin-500*), 750 MG ORAL TID PRN for MUSCLE CRAMPS, (Reported) Zolpidem Tartrate* (Ambien*), 5 MG ORAL BEDTIME PRN for Insomnia, (Reported) Discontinued Medications Hydrochlorothiazide* (Hydrochlorothiazide*), 50 MG ORAL DAILY, (Reported) Discontinued Reason: Pt stopped taking med Patient History Healthcare decision maker Resuscitation status Advanced Directive on File Past Medical/Surgical History Past Medical/Surgical History: (1) Neck pain, acute (2) Neuropathic pain (3) Lumbar herniated disc (4) Multiple sclerosis, secondary progressive Review of Systems ROS Narrative Constitutional: Reports: weakness, Denies: chills, diaphoresis, fever, malaise , no symptoms, other HEENT: Denies: blurred vision, double vision, ear discharge, ear pain, eye pain , mouth pain, mouth swelling, no symptoms, nose congestion, nose pain, other, tearing, throat pain, throat swelling Cardiovascular: Denies: edema, irregular heart rate, lightheadedness, no symptoms, other, palpitations, syncope Respiratory: Denies: SOB at rest, SOB with excertion, cough, no symptoms, orthopnea, other, shortness of breath, sputum, stridor, wheezing Gastrointestinal/Abdominal: Denies: abdomen distended, abdominal pain, black stools, blood in stool, constipated, diarrhea, difficulty swallowing, nausea, no symptoms, other, poor appetite, poor fluid intake, rectal bleeding, tarry stools, vomiting Genitourinary: Denies: burning, discharge, flank pain, frequency, hematuria, incontinence, no symptoms, other, pain, urgency Neurologic/Psychiatric: Reports: weakness, Denies: anxiety, depressed, emotional problems, headache, no symptoms, numbness, other, paresthesia, pre- existing deficit, seizure, tingling, tremors Endocrine: Denies: excessive sweating, flushing, increased hunger, increased thirst, increased urine, intolerance to cold, intolerance to heat, no symptoms, other, unexplained weight gain, unexplained weight loss Hematologic/Lymphatic: Denies: anemia, easy bleeding, easy bruising, no symptoms, other Physical Exam Physical Exam Narrative General Appearance: no apparent distress, alert EENT: PERRL/EOMI, normal ENT inspection Neck: non-tender, normal alignment Cardiovascular: normal peripheral pulses, normal rate, regular rhythm Respiratory/Chest: lungs clear, normal breath sounds Abdomen: non tender, soft Extremities: non-tender Edema: no edema noted Arm (L), no edema noted Arm (R), no edema noted Leg (L), no edema noted Leg (R), no edema noted Pedal (L), no edema noted Pedal (R), no edema noted Generalized Neurologic: alert, oriented x 3 Skin: warm/dry Last 24 Hour Vital Signs Date Time Temp Pulse Resp B/P (MAP) Pulse Ox O2 Delivery O2 Flow Rate FiO2 01/09/20 08:10 87 173/116 01/09/20 08:00 98.9 87 19 173/116 (135) 95 01/09/20 05:37 87 177/122 (140) 01/09/20 04:14 199/121 01/09/20 04:00 97.3 80 17 199/121 (147) 98 01/09/20 02:25 199/123 01/09/20 01:30 199/123 (148) 01/08/20 23:52 97.4 92 19 168/124 (139) 99 01/08/20 23:51 168/124 01/08/20 21:00 Room Air 01/08/20 19:56 97.7 78 18 161/106 (124) 95 01/08/20 16:00 98.2 69 18 136/95 (109) 95 01/08/20 14:12 Room Air 01/08/20 13:33 97.7 82 17 122/71 97 Room Air 01/08/20 12:57 97.7 01/08/20 12:40 97.5 82 19 135/76 97 Room Air Intake and Output 01/08/20 01/09/20 19:00 07:00 Intake Total 400 ml Output Total 0 ml 1250 ml Balance 0 ml -850 ml Intake Oral 400 ml Output Urine Total 0 ml 1250 ml # Voids 2 6 Laboratory Tests Test 01/08/20 12:30 White Blood Count 11.0 K/UL (4.8-10.8) H Red Blood Count 4.37 M/UL (4.70-6.10) L Hemoglobin 13.2 G/DL (14.2-18.0) L Hematocrit 39.9 % (42.0-52.0) L Mean Corpuscular Volume 91 FL (80-99) Mean Corpuscular Hemoglobin 30.2 PG (27.0-31.0) Mean Corpuscular Hemoglobin Concent 33.1 G/DL (32.0-36.0) Red Cell Distribution Width 12.9 % (11.6-14.8) Platelet Count 265 K/UL (150-450) Mean Platelet Volume 7.1 FL (6.5-10.1) Neutrophils (%) (Auto) 62.7 % (45.0-75.0) Lymphocytes (%) (Auto) 25.3 % (20.0-45.0) Monocytes (%) (Auto) 9.2 % (1.0-10.0) Eosinophils (%) (Auto) 0.6 % (0.0-3.0) Basophils (%) (Auto) 2.3 % (0.0-2.0) H Sodium Level 140 MMOL/L (136-145) Potassium Level 4.4 MMOL/L (3.5-5.1) Chloride Level 105 MMOL/L (98-107) Carbon Dioxide Level 27 MMOL/L (21-32) Anion Gap 8 mmol/L (5-15) Blood Urea Nitrogen 17 mg/dL (7-18) Creatinine 1.3 MG/DL (0.55-1.30) Estimat Glomerular Filtration Rate > 60 mL/min (>60) Glucose Level 92 MG/DL (74-106) Calcium Level 9.2 MG/DL (8.5-10.1) Total Bilirubin 0.2 MG/DL (0.2-1.0) Aspartate Amino Transf (AST/SGOT) 36 U/L (15-37) Alanine Aminotransferase (ALT/SGPT) 66 U/L (12-78) Alkaline Phosphatase 115 U/L (46-116) Troponin I 0.000 ng/mL (0.000-0.056) Total Protein 7.0 G/DL (6.4-8.2) Albumin 3.5 G/DL (3.4-5.0) Globulin 3.5 g/dL Albumin/Globulin Ratio 1.0 (1.0-2.7) Height (Feet): 6 Height (Inches): 0.00 Weight (Pounds): 245 Medications Current Medications Medications (Trade) Dose Ordered Sig/Jessica Route PRN Reason Start Time Stop Time Status Last Admin Dose Admin Acetaminophen (Tylenol) 650 mg Q4HR PRN ORAL MILD PAIN/FEVER 01/08/20 16:00 02/07/20 15:59 Amlodipine Besylate (Norvasc) 10 mg DAILY ORAL 01/09/20 09:00 02/08/20 08:59 01/09/20 08:10 Aspirin (Ecotrin) 81 mg DAILY ORAL 01/09/20 09:00 02/23/20 08:59 01/09/20 08:09 Clonidine HCl (Catapres tab) 0.3 mg Q6H PRN ORAL For High Blood Pressure 01/09/20 02:15 04/08/20 02:14 01/09/20 04:14 Diphenhydramine HCl (Benadryl) 25 mg Q4H PRN ORAL Itching 01/09/20 09:30 02/08/20 09:29 01/09/20 09:38 Duloxetine HCl (Cymbalta) 40 mg DAILY ORAL 01/09/20 09:00 04/08/20 08:59 01/09/20 08:10 Hydralazine HCl (Apresoline) 50 mg TID@0600,1400,2200 ORAL 01/09/20 14:00 04/08/20 13:59 Hydrochlorothiazide (Hydrodiuril) 25 mg DAILY ORAL 01/09/20 09:00 02/08/20 08:59 01/09/20 08:10 Hydromorphone HCl (Dilaudid) 2 mg Q4H PRN IVP For Pain 01/09/20 04:39 01/15/20 04:38 01/09/20 09:38 Methocarbamol (Robaxin) 750 mg TID PRN ORAL MUSCLE CRAMPS 01/08/20 16:00 02/07/20 15:59 Zolpidem Tartrate (Ambien) 5 mg BEDTIME PRN ORAL Insomnia 01/08/20 21:00 01/15/20 20:59 01/08/20 22:05 Assessment/Plan Assessment/Plan: (1) Multiple Sclerosis (2) Neuropathic pain (3) Cervical DDD (4) Cervical spondylosis (5) Lumbar DDD (6) Lumbar spondylosis Patient will be continued on the Dilaudid Pt was d/w Dr. Scott and he concurred. Tani Valladares Jan 09, 2020 10:51
[2020-01-09] MEDS: HydrALAZINE 50mg tab ORAL SCH ×2 (13:08→21:02)
[2020-01-09] MEDS: Lyrica 50mg cap ORAL SCH (17:12)
[2020-01-09] MEDS ORDERED: Terazosin 2mg cap ORAL SCH (17:45)
[2020-01-09] MEDS ORDERED: Terazosin 1mg cap ORAL SCH (18:45)
--- NOTE | 2020-01-09 19:16 | NUR ---
NURSE HAND-OFF: Important Events on Shift:Blood pressure still elevated even though ,trending down Patient Status: syable Diet: Regular Pending Orders: Pending Results/Labs: Pending MD notification: Latest Vital Signs: Temperature 98.0 , Pulse 100 , B/P 163 /102 , Respiratory Rate 18 , O2 SAT 98 , Room Air, O2 Flow Rate . Vital Sign Comment: Latest Montalvo Fall Score: 70 Fall Risk: High Risk Safety Measures: Call light Within Reach, Bed Alarm Zone 2, Side Rails Side Rails x2, Bed position Low and Locked. Fall Precautions: Patient Fall Education Report given to Tatiana SERVIN .
--- NOTE | 2020-01-09 22:27 | Cardiology Progress Note ---
Assessment/Plan Assessment/Plan 1. Hypertension, will optimize BP medication, hydralazine and HCTZ started. 2. Probably chronic kidney disease with creatinine of 1.3. 3. Multiple sclerosis with acute onset of left lower extremity weakness. Subjective Subjective No cardiac events reported. Not on telemetry bed. Objective Last 24 Hour Vital Signs Date Time Temp Pulse Resp B/P (MAP) Pulse Ox O2 Delivery O2 Flow Rate FiO2 01/09/20 21:02 152/101 01/09/20 21:00 Room Air 01/09/20 19:31 97.7 90 18 152/101 (118) 96 01/09/20 17:13 163/102 01/09/20 16:00 98.0 100 18 163/102 (122) 98 01/09/20 13:08 157/100 01/09/20 12:00 97.9 95 15 157/105 (122) 96 01/09/20 10:08 98.9 01/09/20 09:00 Room Air 01/09/20 08:10 87 173/116 01/09/20 08:00 98.9 87 19 173/116 (135) 95 01/09/20 05:37 87 177/122 (140) 01/09/20 04:14 199/121 01/09/20 04:00 97.3 80 17 199/121 (147) 98 01/09/20 02:25 199/123 01/09/20 01:30 199/123 (148) 01/08/20 23:52 97.4 92 19 168/124 (139) 99 01/08/20 23:51 168/124 Intake and Output 01/08/20 01/09/20 19:00 07:00 Intake Total 400 ml Output Total 0 ml 1250 ml Balance 0 ml -850 ml Intake Oral 400 ml Output Urine Total 0 ml 1250 ml # Voids 2 6 Objective HEENT: Atraumatic, normocephalic. Anicteric. Pupils are equal, round, and reactive to light and accommodation. Extraocular muscles intact. NECK: JVP less than 5 cm. No carotid bruit. Carotid upstrokes 2+ bilaterally. CARDIOVASCULAR: Normal S1, S2. Regular rate and rhythm. No murmurs, gallops, or rubs. PMI is at the fourth intercostal space in midclavicular line. LUNGS: Clear to auscultation bilaterally. ABDOMEN: Soft, nontender, nondistended. No hepatosplenomegaly. Positive bowel sounds. EXTREMITIES: No evidence of edema, clubbing, or cyanosis. Joni Mena MD Jan 09, 2020 22:27
[2020-01-09 22:56] LABS: APPEARANCE,URINE SLIGHTLY CLOUDY; BILIRUBIN, URINE NEGATIVE (NEGATIVE); COLOR,URINE PALE YELLOW; GLUCOSE, URINE (UA) NEGATIVE (NEGATIVE); KETONES,URINE NEGATIVE (NEGATIVE); LEUKOCYTE ESTERASE ,URINE NEGATIVE (NEGATIVE); NITRITE,URINE POSITIVE (NEGATIVE); PH,URINE 6 (4.5-8.0); PROTEIN,URINE NEGATIVE (NEGATIVE); UROBILINOGEN,URINE NORMAL MG/DL (0.0-1.0)
--- NOTE | 2020-01-10 01:15 | History and Physical Report ---
DATE OF ADMISSION: 01/08/[address] Dennis Hoffman. This is Dr. Dennis Hoffman's patient. HISTORY OF PRESENT ILLNESS: The patient comes in with history of multiple sclerosis, chronic lower extremity weakness and lower extremity pain. He comes with acute left lower extremity weakness. The patient has had multiple MS flares. The patient has been having left lower extremity weakness in the past 3 days. Denies headache. Denies nausea, vomiting, diarrhea, pain, fever, chills, or shortness of breath. Denies cough. The patient does have chronic back pain. Dr. Mena has seen him in the past. PAST MEDICAL HISTORY: Significant for multiple sclerosis, coronary artery disease, hypertension, history of CVA, history of syncope, history of headaches, history of fatigue, and chronic pain syndrome. PAST SURGICAL HISTORY: Denies. SOCIAL HISTORY: Denies history of smoking, alcohol, or illicit drugs. MEDICATIONS: He takes Norvasc, aspirin, clonidine, Cymbalta, hydralazine, and Robaxin. ALLERGIES: Ketorolac. FAMILY HISTORY: Noncontributory. REVIEW OF SYSTEMS: HEENT: Does have headaches. RESPIRATORY: Denies shortness of breath. Denies cough. CARDIOVASCULAR: Denies chest pain. GASTROINTESTINAL: Denies nausea, vomiting, or diarrhea. EXTREMITIES: Chronic pain syndrome. CENTRAL NERVOUS SYSTEM: Reports left lower extremity weakness over the last few days and does have headache. Denies blurred vision. PHYSICAL EXAMINATION: VITAL SIGNS: Temperature is 97.9, pulse is 95, blood pressure is 157/105. HEENT: PERRLA. CHEST: Clear to auscultation. CARDIOVASCULAR: Regular rate and rhythm. GASTROINTESTINAL: Soft, nontender, nondistended. No organomegaly. EXTREMITIES: No edema. Moves extremities. Lower extremity weakness, which is chronic, getting worse. Does have present. LABORATORY DATA: WBC of 11, hemoglobin of 13.2, and platelets of 265. Sodium 40, potassium 4.4 and glucose of 92. ASSESSMENT AND PLAN: Rule out MS flare, chronic pain syndrome, and headache. The patient also is on multiple blood pressure medications. I have asked and Dr. Mena to see the patient for hypertension, Dr. Mena to rule out MS flare and Dr. Scott for pain management and pain control medications. Stone Smart M.D. DR: Cristina JOB#: [id number] CC:
[2020-01-10] MEDS: HYDROmorphone 1mg/ml Carpuject IVP PRN ×3 (02:13→10:47)
[2020-01-10 03:28] VITALS: BP 136/105
[2020-01-10] MEDS: Zolpidem 5mg tab ORAL PRN (03:28)
[2020-01-10] MEDS: HydrALAZINE 50mg tab ORAL SCH ×3 (05:26→22:18)
--- NOTE | 2020-01-10 05:50 | NUR ---
NURSE HAND-OFF: Important Events on Shift: no significant changes noted this shift; pain managed well with ordered medications with good results; DBP still slightly elevated but patient remains asymptomatic; denies any chest pains. noted +1 edema on his left foot, encouraged patient to elevate leg at all times. Patient Status: stable Diet: regular Pending Orders: AM labs Pending Results/Labs:same as above Pending MD notification:none Latest Vital Signs: Temperature 97.3 , Pulse 108 , B/P 136 /105 , Respiratory Rate 18 , O2 SAT 96 , Room Air, O2 Flow Rate . Vital Sign Comment: stable, improving Latest Montalvo Fall Score: 70 Fall Risk: High Risk Safety Measures: Call light Within Reach, Bed Alarm Zone 2, Side Rails Side Rails x2, Bed position Low and Locked. Fall Precautions: Patient Fall Education Report will be given to MALATHI Bennett.
--- NOTE | 2020-01-10 06:34 | NUR ---
nurse's notes: per patient he takes 40mg of lasix daily. will endorse
[2020-01-10 07:06] LABS: ANION GAP 11 mmol/L (5-15); BLOOD UREA NITROGEN 22 mg/dL (7-18); CALCIUM 9.7 MG/DL (8.5-10.1); CARBON DIOXIDE 26 MMOL/L (21-32); CHLORIDE 101 MMOL/L (98-107); CREATININE 1.3 MG/DL (0.55-1.30); POTASSIUM 3.6 MMOL/L (3.5-5.1); SODIUM 138 MMOL/L (136-145)
[2020-01-10 08:00] VITALS: BP 133/110
--- NOTE | 2020-01-10 09:00 | NUR ---
NURSE NOTES: Patient is in bed awake and able to verbalize needs. Stable. C/o pain in panfilo lower legs, pain medication administration schedule discussed with patient. Patient instructed to use call light for assistance, verbalized understanding. Patient is in bed in locked and lowest position with call light within reach. All needs met at this time. Will continue to monitor.
[2020-01-10] MEDS: Lyrica 50mg cap ORAL SCH ×2 (09:18→18:01)
[2020-01-10] MEDS: hydroCHLOROthiazide 25mg cap ORAL SCH (09:19)
[2020-01-10] MEDS: Aspirin EC 81mg tab ORAL SCH (09:19)
[2020-01-10 12:00] VITALS: BP 144/109
--- NOTE | 2020-01-10 12:08 | General Progress Note ---
Assessment/Plan Assessment/Plan: (1) Multiple Sclerosis (2) Neuropathic pain (3) Cervical DDD (4) Cervical spondylosis (5) Lumbar DDD (6) Lumbar spondylosis Patient will be continued on the Dilaudid We will start Percocet 10/325mg PO 1 tab Q6H PRN moderate pain/ Pt was d/w Dr. Scott and he concurred. Subjective Date patient seen: Jan 10, 2020 Time patient seen: 11:00 - am Allergies: Coded Allergies: KETOROLAC (Verified Allergy, Severe, Anaphylaxis, 06/19/15) Subjective Constitutional: Reports: weakness, Denies: chills, diaphoresis, fever, malaise , no symptoms, other HEENT: Denies: blurred vision, double vision, ear discharge, ear pain, eye pain , mouth pain, mouth swelling, no symptoms, nose congestion, nose pain, other, tearing, throat pain, throat swelling Cardiovascular: Denies: edema, irregular heart rate, lightheadedness, no symptoms, other, palpitations, syncope Respiratory: Denies: SOB at rest, SOB with excertion, cough, no symptoms, orthopnea, other, shortness of breath, sputum, stridor, wheezing Gastrointestinal/Abdominal: Denies: abdomen distended, abdominal pain, black stools, blood in stool, constipated, diarrhea, difficulty swallowing, nausea, no symptoms, other, poor appetite, poor fluid intake, rectal bleeding, tarry stools, vomiting Genitourinary: Denies: burning, discharge, flank pain, frequency, hematuria, incontinence, no symptoms, other, pain, urgency Neurologic/Psychiatric: Reports: weakness, Denies: anxiety, depressed, emotional problems, headache, no symptoms, numbness, other, paresthesia, pre- existing deficit, seizure, tingling, tremors Endocrine: Denies: excessive sweating, flushing, increased hunger, increased thirst, increased urine, intolerance to cold, intolerance to heat, no symptoms, other, unexplained weight gain, unexplained weight loss Hematologic/Lymphatic: Denies: anemia, easy bleeding, easy bruising, no symptoms, other SUBJECTIVE Patient is in bed continues to c/o pain with minimal relief on the Dilaudid, D/w him about adding Percocet 10/325mg and he seems to understand No new complaints at this time. Objective Last 24 Hour Vital Signs Date Time Temp Pulse Resp B/P (MAP) Pulse Ox O2 Delivery O2 Flow Rate FiO2 01/10/20 09:19 121 133/110 01/10/20 09:00 Room Air 01/10/20 08:00 97.5 121 21 133/110 (118) 98 01/10/20 05:26 136/105 01/10/20 03:28 97.3 108 18 136/105 (115) 96 01/09/20 23:45 97.5 94 17 153/106 (122) 95 01/09/20 21:02 152/101 01/09/20 21:00 Room Air 01/09/20 19:31 97.7 90 18 152/101 (118) 96 01/09/20 17:13 163/102 01/09/20 16:00 98.0 100 18 163/102 (122) 98 01/09/20 13:08 157/100 Intake and Output 01/09/20 01/10/20 19:00 07:00 Intake Total 1020 ml 1200 ml Output Total 750 ml Balance 1020 ml 450 ml Intake Oral 1020 ml 1200 ml Output Urine Total 750 ml # Voids 4 4 Laboratory Tests 01/09/20 20:50: Urine Color Pale yellow, Urine Appearance Slightly cloudy, Urine pH 6, Urine Specific [place] 1.015, Urine Protein Negative, Urine Glucose (UA) Negative, Urine Ketones Negative, Urine Blood Negative, Urine Nitrite PositiveH, Urine Bilirubin Negative, Urine Urobilinogen Normal, Urine Leukocyte Esterase Negative , Urine RBC 0, Urine WBC 0-2, Urine Squamous Epithelial Cells None, Urine Bacteria Occasional, Urine Eosinophils None seen, Urine Random Creatinine [ Pending], Urine Random Microalbumin [Pending], Urine Random Sodium 125H, Urine Creatinine 103.3, Urine Microalbumin/Creatinine Ratio [Pending] 01/10/20 05:10: Sodium Level 138, Potassium Level 3.6, Chloride Level 101, Carbon Dioxide Level 26, Anion Gap 11, Blood Urea Nitrogen 22H, Creatinine 1.3, Estimat Glomerular Filtration Rate > 60, Glucose Level 142H, Calcium Level 9.7 Height (Feet): 6 Height (Inches): 0.00 Weight (Pounds): 245 Tani Valladares Jan 10, 2020 12:08
[2020-01-10] MEDS ORDERED: HYDROmorphone 1mg/ml Carpuject IVP PRN (13:30)
[2020-01-10 16:00] VITALS: BP 147/106
--- NOTE | 2020-01-10 17:48 | NUR ---
NURSE NOTES: patient's IV is not flushing, no blood return. charge manager attempted to insert IV, unsuccessful x2. RN supervisor ship maintenance services notified regarding no IV access.
[2020-01-10] MEDS: HYDROmorphone 1mg/ml Carpuject SUBQ PRN ×2 (18:48→23:53)
--- NOTE | 2020-01-10 19:25 | NUR ---
NURSE HAND-OFF: Important Events on Shift:pain management Patient Status: stable Diet: regular Pending Orders: n/a Pending Results/Labs:n/a Pending MD notification:n/a Latest Vital Signs: Temperature 97.3 , Pulse 109 , B/P 147 /106 , Respiratory Rate 21 , O2 SAT 97 , Room Air, O2 Flow Rate . Vital Sign Comment: n/a Latest Montalvo Fall Score: 70 Fall Risk: High Risk Safety Measures: Call light Within Reach, Bed Alarm Zone 2, Side Rails Side Rails x2, Bed position Low and Locked. Fall Precautions: Patient Fall Education Report given to Savanna SERVIN.
--- NOTE | 2020-01-10 19:26 | NUR ---
NURSE NOTES: Received report from Indu SERVIN. Rounding is done. Patient is a/o x4. Denied any pain at this time. No any distress noted at this time. Breathing is even and unlabored at this time. No IV access. Bed is on alarm, locked, and lowest position. Call light within reach. Will continue to monitor.
--- NOTE | 2020-01-10 19:42 | Cardiology Progress Note ---
Assessment/Plan Assessment/Plan 1. Hypertension, will optimize BP medication, hydralazine, amlodipine and HCTZ started. Will start coreg 3.125mg bid. 2. Hx of NSTEMI type II in the past, with no prior hx of LHC/Cors. 3. Probably chronic kidney disease with creatinine stable at 1.3. 4. Multiple sclerosis with acute onset of left lower extremity weakness. Subjective Subjective No cardiac events reported. Not on telemetry bed. Objective Last 24 Hour Vital Signs Date Time Temp Pulse Resp B/P (MAP) Pulse Ox O2 Delivery O2 Flow Rate FiO2 01/10/20 16:00 97.3 109 21 147/106 (120) 97 01/10/20 13:31 147/121 01/10/20 12:00 98.3 102 21 144/109 (121) 99 01/10/20 09:19 121 133/110 01/10/20 09:00 Room Air 01/10/20 08:00 97.5 121 21 133/110 (118) 98 01/10/20 05:26 136/105 01/10/20 03:28 97.3 108 18 136/105 (115) 96 01/09/20 23:45 97.5 94 17 153/106 (122) 95 01/09/20 21:02 152/101 01/09/20 21:00 Room Air Intake and Output 01/09/20 01/10/20 19:00 07:00 Intake Total 1020 ml 1200 ml Output Total 750 ml Balance 1020 ml 450 ml Intake Oral 1020 ml 1200 ml Output Urine Total 750 ml # Voids 4 4 Laboratory Tests Test 01/09/20 20:50 01/10/20 05:10 Urine Color Pale yellow Urine Appearance Slightly cloudy Urine pH 6 (4.5-8.0) Urine Specific [place] 1.015 (1.005-1.035) Urine Protein Negative (NEGATIVE) Urine Glucose (UA) Negative (NEGATIVE) Urine Ketones Negative (NEGATIVE) Urine Blood Negative (NEGATIVE) Urine Nitrite Positive (NEGATIVE) H Urine Bilirubin Negative (NEGATIVE) Urine Urobilinogen Normal MG/DL (0.0-1.0) Urine Leukocyte Esterase Negative (NEGATIVE) Urine RBC 0 /HPF (0 - 0) Urine WBC 0-2 /HPF (0 - 0) Urine Squamous Epithelial Cells None /LPF (NONE/OCC) Urine Bacteria Occasional /HPF (NONE) Urine Eosinophils None seen (NONE SEEN) Urine Random Creatinine Pending Urine Random Microalbumin Pending Urine Random Sodium 125 mmol/L (20-110) H Urine Creatinine 103.3 MG/DL (30.0-125.0) Urine Microalbumin/Creatinine Ratio Pending Sodium Level 138 MMOL/L (136-145) Potassium Level 3.6 MMOL/L (3.5-5.1) Chloride Level 101 MMOL/L (98-107) Carbon Dioxide Level 26 MMOL/L (21-32) Anion Gap 11 mmol/L (5-15) Blood Urea Nitrogen 22 mg/dL (7-18) H Creatinine 1.3 MG/DL (0.55-1.30) Estimat Glomerular Filtration Rate > 60 mL/min (>60) Glucose Level 142 MG/DL (74-106) H Calcium Level 9.7 MG/DL (8.5-10.1) Objective HEENT: Atraumatic, normocephalic. Anicteric. Pupils are equal, round, and reactive to light and accommodation. Extraocular muscles intact. NECK: JVP less than 5 cm. No carotid bruit. Carotid upstrokes 2+ bilaterally. CARDIOVASCULAR: Normal S1, S2. Regular rate and rhythm. Tachycardic. No murmurs, gallops, or rubs. PMI is at the fourth intercostal space in midclavicular line. LUNGS: Clear to auscultation bilaterally. ABDOMEN: Soft, nontender, nondistended. No hepatosplenomegaly. Positive bowel sounds. EXTREMITIES: No evidence of edema, clubbing, or cyanosis. Joni Mena MD Jan 10, 2020 19:42
[2020-01-10 19:56] VITALS: BP 159/119
--- NOTE | 2020-01-10 21:15 | General Progress Note ---
Assessment/Plan Problem List: (1) Abscess ICD Codes: L02.91 - Cutaneous abscess, unspecified SNOMED: 789961245 (2) Diabetes ICD Codes: E11.9 - Diabetes SNOMED: 69027019 (3) Hypertension ICD Codes: I10 - Essential (primary) hypertension SNOMED: 76247336 (4) Neck pain ICD Codes: M54.2 - Cervicalgia SNOMED: 61607836 (5) Relapsing progressive multiple sclerosis ICD Codes: G35 - Multiple sclerosis SNOMED: 130545377 (6) Multiple sclerosis (7) Chronic pain ICD Codes: G89.29 - Other chronic pain SNOMED: 86026927 Status: progressing Assessment/Plan: htn in pain pain med per pain management afebrile resp insuff multiple sclerosis Subjective ROS Limited/Unobtainable: Yes Allergies: Coded Allergies: KETOROLAC (Verified Allergy, Severe, Anaphylaxis, 06/19/15) Objective Last 24 Hour Vital Signs Date Time Temp Pulse Resp B/P (MAP) Pulse Ox O2 Delivery O2 Flow Rate FiO2 01/10/20 20:50 107 159/119 01/10/20 19:56 96.0 107 19 159/119 (132) 98 01/10/20 16:00 97.3 109 21 147/106 (120) 97 01/10/20 13:31 147/121 01/10/20 12:00 98.3 102 21 144/109 (121) 99 01/10/20 09:19 121 133/110 01/10/20 09:00 Room Air 01/10/20 08:00 97.5 121 21 133/110 (118) 98 01/10/20 05:26 136/105 01/10/20 03:28 97.3 108 18 136/105 (115) 96 01/09/20 23:45 97.5 94 17 153/106 (122) 95 Intake and Output 01/09/20 01/10/20 19:00 07:00 Intake Total 1020 ml 1200 ml Output Total 750 ml Balance 1020 ml 450 ml Intake Oral 1020 ml 1200 ml Output Urine Total 750 ml # Voids 4 4 Laboratory Tests 01/10/20 05:10: Sodium Level 138, Potassium Level 3.6, Chloride Level 101, Carbon Dioxide Level 26, Anion Gap 11, Blood Urea Nitrogen 22H, Creatinine 1.3, Estimat Glomerular Filtration Rate > 60, Glucose Level 142H, Calcium Level 9.7 Height (Feet): 6 Height (Inches): 0.00 Weight (Pounds): 245 Stone Smart MD Jan 10, 2020 21:14
[2020-01-10] MEDS ORDERED: HYDROmorphone 1mg/ml Carpuject SUBQ PRN (21:30)
[2020-01-10] MEDS: cloNIDine 0.2mg Tab ORAL PRN (23:54)
[2020-01-11] VITALS: BP 161/112
[2020-01-11 04:00] VITALS: BP 153/103
[2020-01-11] MEDS: HYDROmorphone 1mg/ml Carpuject IVP PRN ×5 (04:02→19:57)
[2020-01-11] MEDS: HydrALAZINE 50mg tab ORAL SCH ×3 (06:11→22:18)
--- NOTE | 2020-01-11 07:28 | NUR ---
NURSE HAND-OFF: Important Events on Shift:[PAIN CONTROL] Patient Status: [STABLE] Diet: [REGULAR] Pending Orders: [N] Pending Results/Labs:[N] Pending MD notification:[N] Latest Vital Signs: Temperature 97.7 , Pulse 99 , B/P 145 /108 , Respiratory Rate 18 , O2 SAT 96 , Room Air, O2 Flow Rate . Vital Sign Comment: [STABLE] Latest Montalvo Fall Score: 70 Fall Risk: High Risk Safety Measures: Call light Within Reach, Bed Alarm Zone 2, Side Rails Side Rails x2, Bed position Low and Locked. Fall Precautions: Patient Fall Education Report given to [Shine RN].
--- NOTE | 2020-01-11 07:30 | Consultation ---
DATE OF CONSULTATION: 01/09/2020 NEPHROLOGY CONSULTATION REFERRING PHYSICIAN: Stone Smart M.D. Covering for Dr. Dennis Hoffman. REASON FOR CONSULTATION: Acute renal failure. HISTORY OF PRESENT ILLNESS: The patient is a 54-year-old male with past medical history significant for history of hypertension, multiple sclerosis, history of CVA, and history of CAD who was noncompliant with his multiple sclerosis medications and stopped his prednisone for the past weekend prior to hospitalization. The patient presents to emergency room at [facility] for evaluation of lower extremity edema with weakness. The patient found to have a creatinine of 1.3, uncontrolled high blood pressure electrolyte imbalance. PAST MEDICAL HISTORY: Includin. History of non-ST elevation [place]. 2. History of hypertension. 3. History of multiple sclerosis. 4. History of CVA. ALLERGIES: The patient is allergic to . PAST SURGICAL HISTORY: None. FAMILY HISTORY: Noncontributory. SOCIAL HISTORY: Denies any history of current tobacco, alcohol or drug use. MEDICATIONS: Medication list was reviewed. REVIEW OF SYSTEMS: General: Complained of generalized weakness. Denies any fever, chills, or night sweats. Head and Neck: Denies any dysphagia, odynophagia, blurry vision, headache, or neck stiffness. Pulmonary: Denies any shortness of breath. No cough. No sputum. Cardiovascular: Denies any chest pain or palpitations. GI: Denies any nausea, vomiting, diarrhea, hematemesis, or hematochezia. : Complained of dysuria, frequency, urgency. Denied any hematuria. Musculoskeletal: Complained of weakness and numbness of both lower extremities. PHYSICAL EXAMINATION: VITAL SIGNS: The patient had a temperature of 98 degrees, blood pressure of 152/103 and respiratory rate of 18. HEAD AND NECK: No JVP. No LAD. No thyromegaly. Extraocular movement intact. Pupils are reactive to light and accommodation. LUNGS: Clear to auscultation. CARDIAC: Regular rate and rhythm. S1, S2. No murmur. No rub. ABDOMEN: Soft, nontender, and nondistended. No organomegaly. EXTREMITIES: No edema. No clubbing. No cyanosis. NEUROLOGICAL: Cranial nerves II through XII within normal limits. Upper and lower extremities are grossly intact. LABORATORY DATA: Lab value revealed sodium 140, potassium 4.5, chloride 105, bicarb 27, BUN of 17, creatinine of 1.3. Calcium of 9.2, AST of 36, ALT of 66. . ASSESSMENT: 1. Acute versus chronic renal failure, rule out obstructive uropathy. 2. Hypertension, which is uncontrolled at this time. 3. History of multiple sclerosis. PLAN: We will obtain UA. Check the random urine protein and creatinine to calculate the proteinuria. Check the urine sodium and creatinine to calculate fractional excretion of sodium. Check the I's and O's. Start the patient on terazosin for possible obstructive disease and antihypertensive medication. Avoid any NSAIDs and nephrotoxics. Replace electrolytes as needed. Again, I would like to thank Dr. Dennis Hoffman for allowing me to participate in the care of this patient. Jojo Gonzalez M.D. DR: Lina JOB#: [id number] CC:
--- NOTE | 2020-01-11 07:45 | NUR ---
NURSE NOTES: Received report from MALATHI Corrales. Patient awake in bed, a/o x4. Denied pain at this time. No any distress noted at this time. Breathing is even and unlabored at this time. IV at right upper arm intact and patent. Bed is on alarm, locked, and lowest position. Call light within reach. Will continue to monitor.
[2020-01-11 08:00] VITALS: BP 141/109
[2020-01-11] MEDS: hydroCHLOROthiazide 25mg cap ORAL SCH (08:07)
[2020-01-11] MEDS: Lyrica 50mg cap ORAL SCH ×2 (08:07→18:13)
[2020-01-11] MEDS: Aspirin EC 81mg tab ORAL SCH (08:08)
--- NOTE | 2020-01-11 08:42 | General Progress Note ---
Assessment/Plan Assessment/Plan: (1) Multiple Sclerosis (2) Neuropathic pain (3) Cervical DDD (4) Cervical spondylosis (5) Lumbar DDD (6) Lumbar spondylosis Patient will be continued on the Dilaudid and Percocet Pt was d/w Dr. Scott and he concurred. Subjective Date patient seen: Jan 11, 2020 Time patient seen: 07:00 - am Allergies: Coded Allergies: KETOROLAC (Verified Allergy, Severe, Anaphylaxis, 06/19/15) Subjective Constitutional: Reports: weakness, Denies: chills, diaphoresis, fever, malaise , no symptoms, other HEENT: Denies: blurred vision, double vision, ear discharge, ear pain, eye pain , mouth pain, mouth swelling, no symptoms, nose congestion, nose pain, other, tearing, throat pain, throat swelling Cardiovascular: Denies: edema, irregular heart rate, lightheadedness, no symptoms, other, palpitations, syncope Respiratory: Denies: SOB at rest, SOB with excertion, cough, no symptoms, orthopnea, other, shortness of breath, sputum, stridor, wheezing Gastrointestinal/Abdominal: Denies: abdomen distended, abdominal pain, black stools, blood in stool, constipated, diarrhea, difficulty swallowing, nausea, no symptoms, other, poor appetite, poor fluid intake, rectal bleeding, tarry stools, vomiting Genitourinary: Denies: burning, discharge, flank pain, frequency, hematuria, incontinence, no symptoms, other, pain, urgency Neurologic/Psychiatric: Reports: weakness, Denies: anxiety, depressed, emotional problems, headache, no symptoms, numbness, other, paresthesia, pre- existing deficit, seizure, tingling, tremors Endocrine: Denies: excessive sweating, flushing, increased hunger, increased thirst, increased urine, intolerance to cold, intolerance to heat, no symptoms, other, unexplained weight gain, unexplained weight loss Hematologic/Lymphatic: Denies: anemia, easy bleeding, easy bruising, no symptoms, other SUBJECTIVE Patient showing no signs of pain or distress. Using the Dilaudid and Percocet as needed. No new complaints at this time. Objective Last 24 Hour Vital Signs Date Time Temp Pulse Resp B/P (MAP) Pulse Ox O2 Delivery O2 Flow Rate FiO2 01/11/20 08:08 99 141/109 01/11/20 08:08 99 141/109 01/11/20 08:00 97.5 99 20 141/109 (120) 96 01/11/20 06:11 145/108 01/11/20 04:00 97.7 99 18 153/103 (120) 96 01/11/20 00:00 98.0 101 19 161/112 (128) 96 01/10/20 23:54 161/112 01/10/20 22:18 149/122 01/10/20 21:00 Room Air 01/10/20 20:50 107 159/119 01/10/20 19:56 96.0 107 19 159/119 (132) 98 01/10/20 16:00 97.3 109 21 147/106 (120) 97 01/10/20 13:31 147/121 01/10/20 12:00 98.3 102 21 144/109 (121) 99 01/10/20 09:19 121 133/110 01/10/20 09:00 Room Air Intake and Output 01/10/20 01/11/20 19:00 07:00 Intake Total 1440 ml 800 ml Output Total 1300 ml 700 ml Balance 140 ml 100 ml Intake Oral 1440 ml 800 ml Output Urine Total 1300 ml 700 ml # Voids 4 Height (Feet): 6 Height (Inches): 0.00 Weight (Pounds): 245 Tani Valladares Jan 11, 2020 08:42
[2020-01-11 12:00] VITALS: BP 156/100
--- NOTE | 2020-01-11 13:31 | General Progress Note ---
Assessment/Plan Problem List: (1) Headache (2) Multiple sclerosis (3) Neuropathic pain ICD Codes: M79.2 - Neuralgia and neuritis, unspecified SNOMED: 509087174 (4) Chronic pain ICD Codes: G89.29 - Other chronic pain SNOMED: 04289062 Status: unchanged Assessment/Plan: pt diet pain control cbc bmp am aru eval Subjective Constitutional: Reports: weakness Allergies: Coded Allergies: KETOROLAC (Verified Allergy, Severe, Anaphylaxis, 06/19/15) All Systems: reviewed and negative except above Subjective c/o gen pain and weak Objective Last 24 Hour Vital Signs Date Time Temp Pulse Resp B/P (MAP) Pulse Ox O2 Delivery O2 Flow Rate FiO2 01/11/20 12:36 97.5 01/11/20 12:00 98.1 89 20 156/100 (118) 99 01/11/20 09:00 Room Air 01/11/20 08:08 99 141/109 01/11/20 08:08 99 141/109 01/11/20 08:00 97.5 99 20 141/109 (120) 96 01/11/20 06:11 145/108 01/11/20 04:00 97.7 99 18 153/103 (120) 96 01/11/20 00:00 98.0 101 19 161/112 (128) 96 01/10/20 23:54 161/112 01/10/20 22:18 149/122 01/10/20 21:00 Room Air 01/10/20 20:50 107 159/119 01/10/20 19:56 96.0 107 19 159/119 (132) 98 01/10/20 16:00 97.3 109 21 147/106 (120) 97 01/10/20 13:31 147/121 Intake and Output 01/10/20 01/11/20 19:00 07:00 Intake Total 1440 ml 800 ml Output Total 1300 ml 700 ml Balance 140 ml 100 ml Intake Oral 1440 ml 800 ml Output Urine Total 1300 ml 700 ml # Voids 4 Height (Feet): 6 Height (Inches): 0.00 Weight (Pounds): 245 General Appearance: alert EENT: normal ENT inspection Neck: normal alignment Cardiovascular: normal peripheral pulses, normal rate, regular rhythm Respiratory/Chest: chest wall non-tender, lungs clear, normal breath sounds Abdomen: normal bowel sounds, non tender, soft Extremities: normal inspection Edema: no edema noted Arm (L), no edema noted Arm (R), no edema noted Leg (L), no edema noted Leg (R), no edema noted Pedal (L), no edema noted Pedal (R), no edema noted Generalized Neurologic: responsive, motor weakness Skin: normal pigmentation, warm/dry Dennis Hoffman DO Jan 11, 2020 13:31
--- NOTE | 2020-01-11 15:00 | NUR ---
*-*DISCHARGE PLANNING*-* PATIENT HAS BEEN REFERRED TO: [facility] P: [phone] P: [phone]
[2020-01-11 16:00] VITALS: BP 142/118
--- NOTE | 2020-01-11 17:54 | NUR ---
CASE MANAGEMENT:REVIEW FROM HOME TO ER CC: PAIN SI: MS EXACERBATION 97.6 85 18 129/71 96% ON RA WBC+11.0 IS: IV DILAUDID X1 IV BENADRYL X2 IV SOLUMEDROL HCTZ PO HYDRALAZINE PO CHEST XRAY : MED/SURG STATUS
--- NOTE | 2020-01-11 18:08 | NUR ---
DISCHARGE PLANNING DISCHARGE ORDER WAS REQUESTED FROM DR RAGLAND EARLY THIS MORNING
--- NOTE | 2020-01-11 19:35 | NUR ---
NURSE NOTES: Received report from MALATHI Browne. Rounds done, patient sitting up, resting quietly. No distress noted, Call light within reach, bed in low position, locked, side rails up x2. Will continue to monitor.
--- NOTE | 2020-01-11 19:52 | NUR ---
NURSE HAND-OFF: Important Events on Shift:Pain Patient Status: stable Diet: reg Pending Orders: Pending Results/Labs: Pending MD notification: Latest Vital Signs: Temperature 97.5 , Pulse 99 , B/P 142 /118 , Respiratory Rate 20 , O2 SAT 99 , Room Air, O2 Flow Rate . Vital Sign Comment: high diastolic Latest Montalvo Fall Score: 70 Fall Risk: High Risk Safety Measures: Call light Within Reach, Bed Alarm Zone 2, Side Rails Side Rails x2, Bed position Low and Locked. Fall Precautions: Patient Fall Education Report given to MALATHI Christian.
[2020-01-11 20:00] VITALS: BP 143/116
[2020-01-11] MEDS: Zolpidem 5mg tab ORAL PRN (21:23)
--- NOTE | 2020-01-11 22:46 | Cardiology Progress Note ---
Assessment/Plan Assessment/Plan 1. Hypertension, will optimize BP medication, hydralazine, amlodipine, HCTZ and coreg. 2. Hx of NSTEMI type II in the past, with no prior hx of LHC/Cors. 3. Probably chronic kidney disease with creatinine stable at 1.3. 4. Multiple sclerosis with acute onset of left lower extremity weakness. Subjective Subjective Denies chest pain or SOB. Not on telemetry unit. Objective Last 24 Hour Vital Signs Date Time Temp Pulse Resp B/P (MAP) Pulse Ox O2 Delivery O2 Flow Rate FiO2 01/11/20 22:18 140/112 01/11/20 21:25 98 143/110 01/11/20 16:31 97.5 01/11/20 16:00 98.3 99 20 142/118 (126) 99 01/11/20 15:03 156/100 01/11/20 12:00 98.1 89 20 156/100 (118) 99 01/11/20 09:00 Room Air 01/11/20 08:08 99 141/109 01/11/20 08:08 99 141/109 01/11/20 08:00 97.5 99 20 141/109 (120) 96 01/11/20 06:11 145/108 01/11/20 04:00 97.7 99 18 153/103 (120) 96 01/11/20 00:00 98.0 101 19 161/112 (128) 96 01/10/20 23:54 161/112 Intake and Output 01/10/20 01/11/20 19:00 07:00 Intake Total 1440 ml 800 ml Output Total 1300 ml 700 ml Balance 140 ml 100 ml Intake Oral 1440 ml 800 ml Output Urine Total 1300 ml 700 ml # Voids 4 Objective HEENT: Atraumatic, normocephalic. Anicteric. Pupils are equal, round, and reactive to light and accommodation. Extraocular muscles intact. NECK: JVP less than 5 cm. No carotid bruit. Carotid upstrokes 2+ bilaterally. CARDIOVASCULAR: Normal S1, S2. Regular rate and rhythm. No murmurs, gallops, or rubs. PMI is at the fourth intercostal space in midclavicular line. LUNGS: Clear to auscultation bilaterally. ABDOMEN: Soft, nontender, nondistended. No hepatosplenomegaly. Positive bowel sounds. EXTREMITIES: No evidence of edema, clubbing, or cyanosis. Joni Mena MD Jan 11, 2020 22:46
[2020-01-12] VITALS: BP 150/110
[2020-01-12] MEDS: HYDROmorphone 1mg/ml Carpuject IVP PRN ×5 (01:04→16:57)
--- NOTE | 2020-01-12 01:38 | Cardiology Report ---
APPROVED REPORT EKG Measurement Heart [id number] <Conclusion> Normal sinus rhythm Cannot rule out Anterior infarct, age undetermined Abnormal ECG
[2020-01-12 05:00] VITALS: BP 160/109
[2020-01-12] MEDS: HydrALAZINE 50mg tab ORAL SCH ×2 (05:12→14:00)
[2020-01-12 06:42] LABS: BASOPHILS % (AUTO) 0.7 % (0.0-2.0); EOSINOPHILS % (AUTO) 1.3 % (0.0-3.0); HEMATOCRIT 42.9 % (42.0-52.0); HEMOGLOBIN 14.3 G/DL (14.2-18.0); LYMPHOCYTES % (AUTO) 27.5 % (20.0-45.0); MEAN CORPUSCULAR VOLUME 91 FL (80-99); MONOCYTES % (AUTO) 9.9 % (1.0-10.0); NEUTROPHILS % (AUTO) 60.6 % (45.0-75.0); PLATELET COUNT 283 K/UL (150-450); RED CELL DISTRIBUTION WIDTH 13.2 % (11.6-14.8); WHITE BLOOD COUNT 11.4 K/UL (4.8-10.8)
[2020-01-12 06:58] LABS: ANION GAP 7 mmol/L (5-15); BLOOD UREA NITROGEN 19 mg/dL (7-18); CARBON DIOXIDE 30 MMOL/L (21-32); CHLORIDE 102 MMOL/L (98-107); POTASSIUM 3.9 MMOL/L (3.5-5.1); SODIUM 139 MMOL/L (136-145)
--- NOTE | 2020-01-12 07:27 | NUR ---
NURSE HAND-OFF: Important Events on Shift: pain management Patient Status: stable Diet: regular Pending Orders: Pending Results/Labs: Pending MD notification: Latest Vital Signs: Temperature 97.8 , Pulse 96 , B/P 160 /109 , Respiratory Rate 16 , O2 SAT 95 , Room Air, O2 Flow Rate . Vital Sign Comment: note change in BP medications for today Latest Montalvo Fall Score: 70 Fall Risk: High Risk Safety Measures: Call light Within Reach, Bed Alarm Zone 2, Side Rails Side Rails x2, Bed position Low and Locked. Fall Precautions: Door Sign Patient Fall Education Report given to MALATHI Browne.
--- NOTE | 2020-01-12 07:45 | NUR ---
NURSE NOTES: Received report from MALATHI Christian. Patient awake in bed, a/o x4. Breathing is even and unlabored at this time. No any distress noted at this time. C/o pain /. Will provided PRN pain med as ordered. IV at right upper arm intact and patent. Bed is on alarm, locked, and lowest position. Call light within reach. Will continue to monitor.
[2020-01-12 08:00] VITALS: BP 156/126
--- NOTE | 2020-01-12 08:53 | General Progress Note ---
Assessment/Plan Assessment/Plan: (1) Multiple Sclerosis (2) Neuropathic pain (3) Cervical DDD (4) Cervical spondylosis (5) Lumbar DDD (6) Lumbar spondylosis Patient will be continued on the Dilaudid and Percocet Pt was d/w Dr. Scott and he concurred. Subjective Date patient seen: Jan 12, 2020 Time patient seen: 07:15 - am Allergies: Coded Allergies: KETOROLAC (Verified Allergy, Severe, Anaphylaxis, 06/19/15) Subjective Constitutional: Reports: weakness, Denies: chills, diaphoresis, fever, malaise , no symptoms, other HEENT: Denies: blurred vision, double vision, ear discharge, ear pain, eye pain , mouth pain, mouth swelling, no symptoms, nose congestion, nose pain, other, tearing, throat pain, throat swelling Cardiovascular: Denies: edema, irregular heart rate, lightheadedness, no symptoms, other, palpitations, syncope Respiratory: Denies: SOB at rest, SOB with excertion, cough, no symptoms, orthopnea, other, shortness of breath, sputum, stridor, wheezing Gastrointestinal/Abdominal: Denies: abdomen distended, abdominal pain, black stools, blood in stool, constipated, diarrhea, difficulty swallowing, nausea, no symptoms, other, poor appetite, poor fluid intake, rectal bleeding, tarry stools, vomiting Genitourinary: Denies: burning, discharge, flank pain, frequency, hematuria, incontinence, no symptoms, other, pain, urgency Neurologic/Psychiatric: Reports: weakness, Denies: anxiety, depressed, emotional problems, headache, no symptoms, numbness, other, paresthesia, pre- existing deficit, seizure, tingling, tremors Endocrine: Denies: excessive sweating, flushing, increased hunger, increased thirst, increased urine, intolerance to cold, intolerance to heat, no symptoms, other, unexplained weight gain, unexplained weight loss Hematologic/Lymphatic: Denies: anemia, easy bleeding, easy bruising, no symptoms, other SUBJECTIVE Patient reports pain is tolerated on the Dilaudid. Will be transferred to ARU of [facility]. No new complaints at this time. Objective Last 24 Hour Vital Signs Date Time Temp Pulse Resp B/P (MAP) Pulse Ox O2 Delivery O2 Flow Rate FiO2 01/12/20 08:00 97.5 100 18 156/126 (136) 95 9/9/20 05:12 160/109 01/12/20 05:00 97.8 96 16 160/109 (126) 95 01/12/20 00:00 97.2 98 20 150/110 (123) 97 01/11/20 22:18 140/112 01/11/20 21:25 98 143/110 01/11/20 21:00 Room Air 01/11/20 20:00 98.1 98 18 143/116 (125) 99 01/11/20 16:31 97.5 01/11/20 16:00 98.3 99 20 142/118 (126) 99 01/11/20 15:03 156/100 01/11/20 12:00 98.1 89 20 156/100 (118) 99 01/11/20 09:00 Room Air Intake and Output 01/11/20 01/12/20 19:00 07:00 Intake Total 1000 ml Output Total 850 ml Balance 150 ml Intake Oral 1000 ml Output Urine Total 850 ml Laboratory Tests 01/12/20 05:20: White Blood Count 11.4H, Red Blood Count 4.70, Hemoglobin 14.3, Hematocrit 42.9 , Mean Corpuscular Volume 91, Mean Corpuscular Hemoglobin 30.4, Mean Corpuscular Hemoglobin Concent 33.4, Red Cell Distribution Width 13.2, Platelet Count 283, Mean Platelet Volume 6.9, Neutrophils (%) (Auto) 60.6, Lymphocytes (% ) (Auto) 27.5, Monocytes (%) (Auto) 9.9, Eosinophils (%) (Auto) 1.3, Basophils ( %) (Auto) 0.7, Sodium Level 139, Potassium Level 3.9, Chloride Level 102, Carbon Dioxide Level 30, Anion Gap 7, Blood Urea Nitrogen 19H, Creatinine 1.0, Estimat Glomerular Filtration Rate > 60, Glucose Level 110H, Calcium Level 9.0 Height (Feet): 6 Height (Inches): 0.00 Weight (Pounds): 245 Tani Valladares Jan 12, 2020 08:53
[2020-01-12] MEDS: hydroCHLOROthiazide 25mg cap ORAL SCH (09:00)
[2020-01-12] MEDS: Aspirin EC 81mg tab ORAL SCH (09:01)
[2020-01-12] MEDS: Lyrica 50mg cap ORAL SCH ×2 (09:01→18:00)
--- NOTE | 2020-01-12 09:42 | General Progress Note ---
Assessment/Plan Problem List: (1) Headache (2) Multiple sclerosis (3) Neuropathic pain ICD Codes: M79.2 - Neuralgia and neuritis, unspecified SNOMED: 115500356 (4) Chronic pain ICD Codes: G89.29 - Other chronic pain SNOMED: 76703331 Status: stable, progressing, unchanged Assessment/Plan: pt diet pain control cbc bmp am aru eval Subjective Constitutional: Reports: weakness Allergies: Coded Allergies: KETOROLAC (Verified Allergy, Severe, Anaphylaxis, 06/19/15) All Systems: reviewed and negative except above Subjective c/o gen pain and weak Objective Last 24 Hour Vital Signs Date Time Temp Pulse Resp B/P (MAP) Pulse Ox O2 Delivery O2 Flow Rate FiO2 01/12/20 09:01 100 156/126 01/12/20 09:01 100 156/126 01/12/20 08:00 97.5 100 18 156/126 (136) 95 01/12/20 05:12 160/109 01/12/20 05:00 97.8 96 16 160/109 (126) 95 01/12/20 00:00 97.2 98 20 150/110 (123) 97 01/11/20 22:18 140/112 01/11/20 21:25 98 143/110 01/11/20 21:00 Room Air 01/11/20 20:00 98.1 98 18 143/116 (125) 99 01/11/20 16:31 97.5 01/11/20 16:00 98.3 99 20 142/118 (126) 99 01/11/20 15:03 156/100 01/11/20 12:00 98.1 89 20 156/100 (118) 99 Intake and Output 01/11/20 01/12/20 19:00 07:00 Intake Total 1000 ml Output Total 850 ml Balance 150 ml Intake Oral 1000 ml Output Urine Total 850 ml Laboratory Tests 01/12/20 05:20: White Blood Count 11.4H, Red Blood Count 4.70, Hemoglobin 14.3, Hematocrit 42.9 , Mean Corpuscular Volume 91, Mean Corpuscular Hemoglobin 30.4, Mean Corpuscular Hemoglobin Concent 33.4, Red Cell Distribution Width 13.2, Platelet Count 283, Mean Platelet Volume 6.9, Neutrophils (%) (Auto) 60.6, Lymphocytes (% ) (Auto) 27.5, Monocytes (%) (Auto) 9.9, Eosinophils (%) (Auto) 1.3, Basophils ( %) (Auto) 0.7, Sodium Level 139, Potassium Level 3.9, Chloride Level 102, Carbon Dioxide Level 30, Anion Gap 7, Blood Urea Nitrogen 19H, Creatinine 1.0, Estimat Glomerular Filtration Rate > 60, Glucose Level 110H, Calcium Level 9.0 Height (Feet): 6 Height (Inches): 0.00 Weight (Pounds): 245 General Appearance: lethargic EENT: normal ENT inspection Neck: normal alignment Cardiovascular: normal peripheral pulses, normal rate, regular rhythm Respiratory/Chest: chest wall non-tender, lungs clear, normal breath sounds Abdomen: normal bowel sounds, non tender, soft Extremities: normal inspection Edema: no edema noted Arm (L), no edema noted Arm (R), no edema noted Leg (L), no edema noted Leg (R), no edema noted Pedal (L), no edema noted Pedal (R), no edema noted Generalized Neurologic: responsive, motor weakness Skin: normal pigmentation, warm/dry Dennis Hoffman DO Jan 12, 2020 09:42
--- NOTE | 2020-01-12 09:50 | NUR ---
PT EVALUATION NOTE Patient seen for initial evaluation. Patient presents with LLE weakness, low back and bilateral LE pain with impaired functional mobility. Patient transfers with SBA and use of SPC. Patient able to ambulate 50 ft with use of SPC, ambulates with decreased bilateral hip flexion during swing and incomplete bilateral knee extension during stance phase of gait. Patient with antalgic gait, slowed pace, somewhat unsteady however no loss of balance. Patient will benefit from skilled inpatient PT intervention to increase LE strength and postural stability for improved balance and ability to perform mobility tasks safely so that patient can return to prior level of function. Recommend discharge to ARU for continued rehab once medically cleared by MD. Addendum: 01/12/20 at 1306 by JACK LEROY PT Amended: Links added.
[2020-01-12 12:00] VITALS: BP 165/110
--- NOTE | 2020-01-12 12:30 | Consultation ---
DATE OF CONSULTATION: 01/12/2020 INFECTIOUS DISEASES CONSULTATION CONSULTING PHYSICIAN: Jana Ignacio MD. REFERRING PHYSICIAN: Dennis Hoffman DO. REASON FOR CONSULTATION: Urinary tract infection. HISTORY OF PRESENTING ILLNESS: This is a 54-year-old gentleman with history of hypertension, multiple sclerosis, coronary artery disease, myocardial infarction, who came in with pain in his lower extremities. He states this apparently is consistent with his usual multiple sclerosis flares. There is a concern for urinary tract infection and an Infectious Diseases consultation has been obtained for antibiotics. PAST MEDICAL HISTORY: 1. History of hypertension. 2. History of multiple sclerosis. 3. Coronary artery disease with myocardial infarction. 4. History of CVA. SOCIAL HISTORY: He does not smoke, drink, or use drugs. FAMILY HISTORY: Positive for heart disease in his father. REVIEW OF SYSTEMS: RESPIRATORY: No fever, chills, cough, shortness of breath or chest pain. CARDIAC: No chest pain. No palpitation. No dizziness. No syncope. GASTROINTESTINAL: No nausea. No vomiting. No abdominal pain or diarrhea. MUSCULOSKELETAL: He complains of pain. MEDICATIONS: As an inpatient, he is on Coreg, hydrochlorothiazide, Dilaudid, hydralazine, Percocet, Lyrica, Benadryl, aspirin, Cymbalta, amlodipine, clonidine, Ambien, Tylenol, and Robaxin. ALLERGIES: To ketorolac noted. PHYSICAL EXAMINATION: VITAL SIGNS: Temperature of 97.5, T-max of 98.3, pulse of 100, respiratory rate of 18, blood pressure 156/126, O2 saturation of 95%. HEENT: Pupils equally reactive to light and accommodation. Mouth appears clean without thrush. NECK: Supple. No adenopathy. No JVD. CARDIOVASCULAR: Regular rate and rhythm. No murmurs. LUNGS: Clear to auscultation bilaterally. No crackles. No wheezes. ABDOMEN: Soft, nontender. No organomegaly. EXTREMITIES: No cyanosis, no clubbing, no edema. LABORATORY AND DIAGNOSTIC DATA: UA showing 0 to 2 white cells. White count of 11.4, hemoglobin 14.3, hematocrit 42.9, MCV 91, platelet count of 283. Sodium 139, potassium 3.9, chloride 102, bicarb 30, BUN 19, creatinine 1, glucose 110, calcium 9. Total bilirubin 0.2. AST 36, ALT 66, alkaline phosphatase 115. Troponin 0. Total protein 7. Albumin 3.5. Chest x-ray showing bibasilar atelectasis. ASSESSMENT: This is a 54-year-old gentleman with history of hypertension, multiple sclerosis, who comes in with leg pain and would like to, 1. Rule out urinary tract infection. 2. Multiple sclerosis. 3. Hypertension. PLAN: 1. We will order urine cultures. 2. Continue off antibiotics for now. 3. We will follow up the patient clinically. I would like to thank, Dr. Dennis Hoffman, for this consultation. Jana Ignacio M.D. DR: CHARLY JOB#: [id number] CC: Dennis Hoffman DO.
[2020-01-12] MEDS: cloNIDine 0.2mg Tab ORAL PRN (12:50)
[2020-01-12 16:43] VITALS: BP 144/99
--- NOTE | 2020-01-12 17:12 | NUR ---
DISCHARGE PLANNING PATIENT ACCEPTED TO [facility] Nurse report number T: [phone] ROOM#405 [facility] TE[employer]NICIAN TIME
--- NOTE | 2020-01-12 17:14 | NUR ---
DISCHARGE PLANNED PATIENT ACCEPTED TO [facility] Nurse report number T: [phone] ROOM#405 [facility] JEWELRY COATER TIME 630PM
--- NOTE | 2020-01-12 19:10 | NUR ---
NURSE NOTES: Pt in stable condition. Pt planned to be discharged to [facility] acute rehab. assistant sales manager arranged transportation. Report was given to MALATHI Anderson from [facility]. All belongings were accounted for. Per Dr. Hoffman send all home meds and inpatient meds list to the facility and leave IV upon discharge. Report given to ambulance personnel. Pt was transferred via gurney by transportation.
--- NOTE | 2020-01-12 21:38 | Cardiology Progress Note ---
Assessment/Plan Assessment/Plan 1. Hypertension, stage II, optimize hydralazine, amlodipine, HCTZ and coreg. 2. Hx of NSTEMI type II in the past, with no prior hx of LHC/Cors. 3. Probably chronic kidney disease with KHLOE, creatinine down to 1.0. 4. Multiple sclerosis with acute onset of left lower extremity weakness. Subjective Subjective Denies chest pain or SOB. No cardiac events noted. Objective Last 24 Hour Vital Signs Date Time Temp Pulse Resp B/P (MAP) Pulse Ox O2 Delivery O2 Flow Rate FiO2 01/12/20 17:27 97.3 01/12/20 16:43 97.3 90 18 144/99 (114) 95 01/12/20 14:00 165/110 01/12/20 12:50 165/110 01/12/20 12:00 97.7 91 18 165/110 (128) 95 01/12/20 09:01 100 156/126 01/12/20 09:01 100 156/126 01/12/20 09:00 Room Air 01/12/20 08:00 97.5 100 18 156/126 (136) 95 01/12/20 05:12 160/109 01/12/20 05:00 97.8 96 16 160/109 (126) 95 01/12/20 00:00 97.2 98 20 150/110 (123) 97 01/11/20 22:18 140/112 Intake and Output 01/11/20 01/12/20 19:00 07:00 Intake Total 1000 ml Output Total 850 ml Balance 150 ml Intake Oral 1000 ml Output Urine Total 850 ml Laboratory Tests Test 01/12/20 05:20 White Blood Count 11.4 K/UL (4.8-10.8) H Red Blood Count 4.70 M/UL (4.70-6.10) Hemoglobin 14.3 G/DL (14.2-18.0) Hematocrit 42.9 % (42.0-52.0) Mean Corpuscular Volume 91 FL (80-99) Mean Corpuscular Hemoglobin 30.4 PG (27.0-31.0) Mean Corpuscular Hemoglobin Concent 33.4 G/DL (32.0-36.0) Red Cell Distribution Width 13.2 % (11.6-14.8) Platelet Count 283 K/UL (150-450) Mean Platelet Volume 6.9 FL (6.5-10.1) Neutrophils (%) (Auto) 60.6 % (45.0-75.0) Lymphocytes (%) (Auto) 27.5 % (20.0-45.0) Monocytes (%) (Auto) 9.9 % (1.0-10.0) Eosinophils (%) (Auto) 1.3 % (0.0-3.0) Basophils (%) (Auto) 0.7 % (0.0-2.0) Sodium Level 139 MMOL/L (136-145) Potassium Level 3.9 MMOL/L (3.5-5.1) Chloride Level 102 MMOL/L (98-107) Carbon Dioxide Level 30 MMOL/L (21-32) Anion Gap 7 mmol/L (5-15) Blood Urea Nitrogen 19 mg/dL (7-18) H Creatinine 1.0 MG/DL (0.55-1.30) Estimat Glomerular Filtration Rate > 60 mL/min (>60) Glucose Level 110 MG/DL (74-106) H Calcium Level 9.0 MG/DL (8.5-10.1) Microbiology Date/Time Source Procedure Growth Status 01/12/20 15:35 Nasopharynx SARS-CoV-2 RdRp Gene Assay - Final Complete Objective HEENT: Atraumatic, normocephalic. Anicteric. Pupils are equal, round, and reactive to light and accommodation. Extraocular muscles intact. NECK: JVP less than 5 cm. No carotid bruit. Carotid upstrokes 2+ bilaterally. CARDIOVASCULAR: Normal S1, S2. Regular rate and rhythm. No murmurs, gallops, or rubs. PMI is at the fourth intercostal space in midclavicular line. LUNGS: Clear to auscultation bilaterally. ABDOMEN: Soft, nontender, nondistended. No hepatosplenomegaly. Positive bowel sounds. EXTREMITIES: No evidence of edema, clubbing, or cyanosis. Joni Mena MD Jan 12, 2020 21:38
--- NOTE | 2020-01-13 11:47 | Discharge Summary ---
Discharge Summary Discharge Summary _ DATE OF ADMISSION: 01/08/2020 DATE OF DISCHARGE: 01/12/2020 DISCHARGED BY: Dalton REASON FOR ADMISSION: 54 years old male with past medical history of multiple sclerosis, history of CVA, hypertension, chronic lower extremity weakness, presented to emergency department with acute left lower extremity weakness. Patient reported that he felt like he had his usual multiple sclerosis flare. Patient reported numerous prior episodes of multiple sclerosis flare . Patient reported to be on daily prednisone in the past, which he stopped. Patient did not take prednisone for many months. Patient did not follow-up with his physician for over a year. In the past 3 days he had been having left lower extremity weakness. He denied fever or chills. No chest pain or shortness of breath. No palpitations. No nausea , vomiting, diarrhea or abdominal pain. No dysuria. Upon evaluation vital signs were stable. Chest x-ray revealed bibasilar atelectasis ; lungs were clear otherwise. Laboratory work-up revealed mild leukocytosis WBC 11, hemoglobin 13.2, hematocrit 39.9. Troponin negative . Stable electrolytes and renal parameters. Urinalysis revealed no evidence of urinary tract infection. In emergency department patient received analgesic , loading dose of steroid and admitted for further management. CONSULTANTS: baked and graphite inspector Dr. Mena ID specialist Dr. Ignacio pain specialist Dr. Scott senior water resources engineer Dr. Gonzalez [facility] COURSE: Patient admitted to medical surgical floor. Pain management was addressed as per pain specialist recommendation. Antihypertensive regimen was optimized as per baked and graphite inspector recommendation Patient continued on daily antiplatelet therapy with aspirin. Blood pressure was managed with multiple antihypertensives, including beta- josette, hydrochlorothiazide, hydralazine and calcium channel josette. In addition clonidine was on board as needed for blood pressure spikes. Pulse oximetry remained stable on room air. Renal parameters and electrolytes were closely monitored, electrolytes corrected as needed, and nephrotoxic were avoided. Urinalysis revealed no evidence of urinary tract infection. Patient was kept off antibiotic Supportive care provided. Steroids were hold after worsening of BUN with loading dose of steroids. Patient was encouraged to follow-up with a neurologist as outpatient for further routine management of multiple sclerosis. Patient was working with a physical therapist, who recommended further inpatient physical therapy. Placement was found and secured at the acute rehabilitation unit at [facility]. FINAL DIAGNOSES: Multiple sclerosis with acute onset of left lower extremity weakness, possible flare Neuropathic pain Chronic pain syndrome Hypertension stage II History of NSTEMI type II Probably chronic kidney disease with KHLOE Cervical DDD Cervical spondylosis Lumbar DDD Lumbar spondylosis DISCHARGE MEDICATIONS: See Medication Reconciliation list. DISCHARGE INSTRUCTIONS: Patient was discharged to acute rehabilitation unit at [facility] for further rehabilitation. I have been assigned to dictate discharge summary for this account. I was not involved in the patient's management. Reena Vanegas NP Jan 13, 2020 11:47
== END 2020-01-12 19:09 | disposition short-term general hospital (02) | DRG 59 ==
LOC: EMR 10:45 → 3E 12:06 → EDBEDREQ 13:01
DX: G35 Multiple sclerosis (principal); L02.91 Cutaneous abscess, unspecified; N17.9 Acute kidney failure, unspecified; E11.9 Type 2 diabetes mellitus without complications; I10 Essential (primary) hypertension; M51.36 Other intervertebral disc degeneration, lumbar region; I12.9 Hypertensive chronic kidney disease with stage 1 through stage 4 chronic kidney disease, or unspecified chronic kidney disease; N18.9 Chronic kidney disease, unspecified; M50.30 Other cervical disc degeneration, unspecified cervical region; Z88.8 Allergy status to other drugs, medicaments and biological substances; Z86.73 Personal history of transient ischemic attack (TIA), and cerebral infarction without residual deficits; M47.892 Other spondylosis, cervical region; I25.10 Atherosclerotic heart disease of native coronary artery without angina pectoris; G89.4 Chronic pain syndrome; F41.9 Anxiety disorder, unspecified; G62.9 Polyneuropathy, unspecified; I25.2 Old myocardial infarction; Z91.19 Patient's noncompliance with other medical treatment and regimen; R51 Headache
CPT/HCPCS: 36415; 71045; 80048; 80053; 81001; 82043; 82570; 84300; 84484; 85025; 89050; 93005; 96365; 96375; 96376; 99285; U0002